=== PATIENT | female | born 1960 | race Caucasian/White ===

== ENCOUNTER → 2017-06-02 | Outpatient (CLI) | payer OTHER ==
--- NOTE | 2017-06-03 13:03 | MM ---
Reason for exam: screening (asymptomatic). Last mammogram was performed 1 year ago. History: Patient is postmenopausal. Core biopsy of the left breast. Physical Findings: A clinical breast exam by your physician is recommended on an annual basis and results should be correlated with mammographic findings. MG Screening Mammo w CAD Bilateral CC and MLO view(s) were taken. Prior study comparison: June 01, 2016, bilateral MG screening mammo w CAD. May 29, 2015, bilateral MG screening mammo w CAD. April 26, 2014, bilateral MG screening mammo w CAD. The breast tissue is heterogeneously dense. This may lower the sensitivity of mammography. Stable scattered round and punctate calcifications. Nodular asymmetry medial subareolar left breast appears more defined. No clear correlate on the MLO view. ASSESSMENT: Incomplete: need additional imaging evaluation, BI-RAD 0 RECOMMENDATION: Special view mammogram of the left breast. If lesion persists on supplemental views, image directed ultrasound is recommended. [facility] will attempt to contact patient to return for supplemental views and ultrasound if indicated.
== END | disposition home or self-care (01) ==
LOC: RADMAMWWP 12:45
PROVIDERS: ATTEND Family Medicine
DX: Z12.31 Encounter for screening mammogram for malignant neoplasm of breast (principal)

== ENCOUNTER → 2017-06-14 | Outpatient (CLI) | payer OTHER ==
--- NOTE | 2017-06-14 14:27 | MM ---
Reason for exam: additional evaluation requested from abnormal screening. Last mammogram was performed less than 1 month ago. History: Patient is postmenopausal. Core biopsy of the left breast. Physical Findings: Nurse did not find any significant physical abnormalities on exam. MG Work Up Mamm w CAD LT Spot compression CC, spot compression MLO, and LM view(s) were taken of the left breast. Prior study comparison: June 02, 2017, bilateral MG screening mammo w CAD. June 01, 2016, bilateral MG screening mammo w CAD. May 29, 2015, bilateral MG screening mammo w CAD. The breast tissue is heterogeneously dense. This may lower the sensitivity of mammography. Nodular asymmetry does not persist as true lesion on additional views. These results were verbally communicated with the patient and result sheet given to the patient on 06/14/17. ASSESSMENT: Benign, BI-RAD 2 RECOMMENDATION: Return to routine screening mammogram schedule for both breasts.
== END | disposition home or self-care (01) ==
LOC: RADMAMWWP 13:32
PROVIDERS: ATTEND Family Medicine
DX: R92.8 Other abnormal and inconclusive findings on diagnostic imaging of breast (principal)

== ENCOUNTER → 2017-11-10 | Outpatient (CLI) | payer OTHER ==
--- NOTE | 2017-11-10 15:47 | US ---
EXAMINATION TYPE: US transvaginal DATE OF EXAM: 11/10/2017 COMPARISON: NONE CLINICAL HISTORY: R10.2 Pelvic And Perineal Pain. TECHNIQUE: Transvaginal (TV) Date of LMP: years ago EXAM MEASUREMENTS: Uterus: 5.0 x 2.9 x 4.1 cm Endometrial Stripe: 0.1 cm Right Ovary: not visualized Left Ovary: not visualized 1. Uterus: Anteverted heterogeneous 2. Endometrium: wnl 3. Right Ovary: Obscured by overlying bowel gas 4. Left Ovary: Obscured by overlying bowel gas 5. Bilateral Adnexa: wnl 6. Posterior cul-de-sac: wnl IMPRESSION: 1. Visualized pelvic ultrasound is normal. 2. Nonvisualization of the ovaries during this exam.
== END | disposition home or self-care (01) ==
LOC: RADUSWWP 14:59
PROVIDERS: ATTEND Family Medicine
DX: R10.2 Pelvic and perineal pain (principal)
CPT/HCPCS: 76830

== ENCOUNTER → 2018-04-19 | Outpatient (CLI) | payer OTHER ==
--- NOTE | 2018-04-19 13:01 | XR ---
EXAMINATION TYPE: XR wrist limited LT, XR hand limited LT DATE OF EXAM: 04/19/2018 CLINICAL HISTORY: Left hand and wrist pain TECHNIQUE: Frontal and lateral images of the left hand and wrist are obtained. COMPARISON: None. FINDINGS: There is no acute fracture/dislocation evident in the left hand or wrist. However there is extensive degenerative change of the carpal carpal joints and first carpometacarpal joint demonstrat ed as opposing surface sclerosis, significant joint space narrowing, and bony proliferative change. T here is also mild negative ulnar variance and calcification of the triangular fibrocartilage. Osseous cysts are seen throughout the carpal bones. There is no evidence of malalignment. There is some dors al soft tissue swelling of the wrist. No significant degenerative change of the metacarpophalangeal j oints, distal interphalangeal joints or proximal interphalangeal joints. No erosion of the ulnar styl oid. IMPRESSION: 1. No acute fracture or dislocation in the left hand or wrist. 2. Extensive carpal and carpometacarpal arthropathy with findings favoring either rheumatoid arthriti s or CPPD.
== END | disposition home or self-care (01) ==
LOC: RADXRMAIN 12:24
PROVIDERS: ATTEND Family Medicine
DX: M12.832 Other specific arthropathies, not elsewhere classified, left wrist (principal)

== ENCOUNTER 2018-06-02 10:06 | Emergency (ER) | payer OTHER ==
[2018-06-02 10:19] LABS: Glucose,Whole Blood 105 mg/dL (75-99)
--- NOTE | 2018-06-02 10:38 | ED ---
General Adult HPI - General Chief complaint: Recheck/Abnormal Lab/Rx Stated complaint: hypoglycemia Time Seen by Provider: 06/02/18 10:21 Source: patient, RN notes reviewed Mode of arrival: ambulatory Limitations: no limitations - History of Present Illness Initial comments: Patient is a 57-year-old female presented to the emergency room today with a chief complaint of hypoglycemia. She does admit that she takes medications pill form for her diabetes. She states she couldn't sleep last night was up most the night. She states that she did take her medication of Actos which is a new med for her along with her glyburide and alogliptin. Patient states that she did hold her metformin this morning she felt a little shaky checked her blood sugars that she had a difficult time getting about 60. She states she did drink lots of juice and Gilberto-Aid. Had a sandwich. Patient says she is feeling fine at this time. She states she took these medications at 6 a.m. this morning approximate 4 Hours ago. Patient denies any recent fever, chills, shortness of breath, chest pain, back pain, abdominal pain, nausea or vomiting, constipation or diarrhea, headaches or visual changes, or any other complaints. - Related Data Home Medications Medication Instructions Recorded Confirmed Cyclobenzaprine [Flexeril] 10 mg PO HS 07/11/14 06/02/18 traMADol HCl [Ultram] 50 mg PO Q6H PRN 07/11/14 06/02/18 Omeprazole [PriLOSEC] 20 mg PO DAILY 08/05/14 06/02/18 Allopurinol 100 mg PO DAILY 05/27/16 06/02/18 Atorvastatin [Lipitor] 80 mg PO HS 05/27/16 06/02/18 Ergocalciferol (Vitamin D2) 50,000 unit PO MO 05/27/16 06/02/18 [Drisdol] Fenofibrate 160 mg PO DAILY 05/27/16 06/02/18 Ibuprofen 600 mg PO Q6H PRN 05/27/16 06/02/18 Glimepiride [Amaryl] 8 mg PO DAILY 06/28/17 06/02/18 Pregabalin [Lyrica] 50 mg PO Q8H PRN 06/28/17 06/02/18 metFORMIN HCL [Glucophage] 1,000 mg PO BID 06/28/17 06/02/18 Alogliptin Benzoate [Alogliptin] 25 mg PO DAILY 06/02/18 06/02/18 Losartan/Hydrochlorothiazide 1 tab PO DAILY 06/02/18 06/02/18 [Losartan-Hctz 100-25 mg Tab] rOPINIRole HCL [Requip] 0.25 mg PO HS 06/02/18 06/02/18 Allergies Allergy/AdvReac Type Severity Reaction Status Date / Time codeine AdvReac Severe Abdominal Verified 06/02/18 10:40 Pain Review of Systems ROS Statement: Those systems with pertinent positive or pertinent negative responses have been documented in the HPI. ROS Other: All systems not noted in ROS Statement are negative. Past Medical History Past Medical History: Diabetes Mellitus, Hyperlipidemia, Hypertension History of Any Multi-Drug Resistant Organisms: None Reported Past Surgical History: Section, Cholecystectomy, Tubal Ligation Additional Past Surgical History / Comment(s): BACK SURGERY DURING CHILDHOOD MARBIN PLACED FOR SCOLIOSIS. [facility] Past Anesthesia/Blood Transfusion Reactions: No Reported Reaction Past Psychological History: No Psychological Hx Reported Smoking Status: Current every day smoker Past Alcohol Use History: None Reported Past Drug Use History: None Reported - Past Family History Brother(s) Family Medical History: Diabetes Mellitus Mother Family Medical History: Cancer Father Family Medical History: Cancer General Exam - General Exam Comments Initial Comments: General: The patient is awake and alert, in no distress, and does not appear acutely ill. Eye: Pupils are equal, round and reactive to light, extra-ocular movements are intact. No nystagmus. There is normal conjunctiva bilaterally. No signs of icterus. Ears, nose, mouth and throat: There are moist mucous membranes and no oral lesions. Neck: The neck is supple, there is no tenderness or JVD. Cardiovascular: There is a regular rate and rhythm. No murmur, rub or gallop is appreciated. Respiratory: Lungs are clear to auscultation, respirations are non-labored, breath sounds are equal. No wheezes, stridor, rales. Musculoskeletal: Normal ROM, no tenderness. Strength 5/5. Sensation intact. Pulses equal bilaterally 2+. Neurological: A&O x 3. CN II-XII intact, There are no obvious motor or sensory deficits. Coordination appears grossly intact. Speech is normal. Skin: Skin is warm and dry and no rashes or lesions are noted. Psychiatric: Cooperative, appropriate mood & affect, normal judgment. Limitations: no limitations Course Vital Signs 06/02/18 10:13 Temperature 98.3 F Pulse Rate 111 H Respiratory 18 Rate Blood Pressure 115/77 O2 Sat by Pulse 95 Oximetry Medical Decision Making - Medical Decision Making Patient's blood sugar was rechecked and is currently 128. Patient took her medications over 4 hours ago. She was on a new medication of Actos. She is advised to hold this medication so she talks family doctor. She is a symptomatic urine emergency room. After the remaining medications. Peak Plasma times were less than 4 hours. At this time states felt the patient is safe to be discharged home she is advised to continue to monitor her blood sugar. Advised return for new concerns. - Lab Data Lab Results 06/02/18 06/02/18 Range/Units 10:18 11:11 POC Glucose (mg/dL) 105 H 128 H (75-99) mg/dL POC Glu Frame Assembler ID Sayda Puri Andrew Disposition Clinical Impression: Hypoglycemia Disposition: HOME SELF-CARE Condition: Good Instructions: Hypoglycemia in a Person with Diabetes (ED) Additional Instructions: Please hold medication of pioglitazone until follow-up with family doctor as discussed. Please return here to the emergency room if any symptoms increase worsen. Is patient prescribed a controlled substance at d/c from ED?: No Referrals: Shun Simmons DO [Primary Care Provider] - 1-2 days Time of Disposition: 11:16
[2018-06-02 11:13] LABS: Glucose,Whole Blood 128 mg/dL (75-99)
[2018-06-02 11:25] VITALS: BP 117/82; PULSE 93; RESP 15; TEMP 97
== END 2018-06-02 11:33 | disposition home or self-care (01) ==
LOC: EC 10:06
DX: E11.649 Type 2 diabetes mellitus with hypoglycemia without coma (principal); E78.5 Hyperlipidemia, unspecified; I10 Essential (primary) hypertension; F17.200 Nicotine dependence, unspecified, uncomplicated; Z88.5 Allergy status to narcotic agent; Z79.84 Long term (current) use of oral hypoglycemic drugs; Z79.899 Other long term (current) drug therapy
CPT/HCPCS: 36415; 99284

== ENCOUNTER → 2018-08-15 | Outpatient (CLI) | payer OTHER ==
--- NOTE | 2018-08-16 11:53 | MM ---
Reason for exam: screening (asymptomatic). Last mammogram was performed 1 year and 2 months ago. History: Patient is postmenopausal. Core biopsy of the left breast. Physical Findings: A clinical breast exam by your physician is recommended on an annual basis and results should be correlated with mammographic findings. MG Screening Mammo w CAD Bilateral CC, MLO, and XCCL view(s) were taken. Prior study comparison: June 14, 2017, left breast MG work up mamm w CAD LT. June 02, 2017, bilateral MG screening mammo w CAD. The breast tissue is heterogeneously dense. This may lower the sensitivity of mammography. Finding: There are typically benign indeterminate calcifications in the 3 o'clock retroglandular position of the left breast 5-6cm from the nipple. New finding since June 14, 2017 and June 02, 2017. ASSESSMENT: Incomplete: need additional imaging evaluation, BI-RAD 0 RECOMMENDATION: Special view mammogram of the left breast. [facility] will attempt to contact patient to return for supplemental views.
== END | disposition home or self-care (01) ==
LOC: RADMAMWWP 14:31
PROVIDERS: ATTEND Family Medicine
DX: Z12.31 Encounter for screening mammogram for malignant neoplasm of breast (principal)
CPT/HCPCS: 77067

== ENCOUNTER → 2018-08-29 | Outpatient (CLI) | payer OTHER ==
--- NOTE | 2018-08-31 13:44 | MM ---
Reason for exam: additional evaluation requested from abnormal screening. Last mammogram was performed less than 1 month ago. History: Patient is postmenopausal. Core biopsy of the left breast. Physical Findings: Nurse did not find any significant physical abnormalities on exam. MG Work Up Mamm w CAD LT CC with magnification, ML with magnification, and ML view(s) were taken of the left breast. Prior study comparison: August 15, 2018, bilateral MG screening mammo w CAD. June 14, 2017, left breast MG work up mamm w CAD LT. The breast tissue is heterogeneously dense. This may lower the sensitivity of mammography. There is a 2mm group of calcifications in the lower outer quadrant of the left breast at middle posterior depth. Subtly seen on priors back to 2016, slightly increased. 6 month follow up recommended. No suspicious abnormality. These results were verbally communicated with the patient and result sheet given to the patient on 08/29/18. ASSESSMENT: Probably benign, BI-RAD 3 RECOMMENDATION: Follow-up diagnostic mammogram of the left breast in 6 months.
== END | disposition home or self-care (01) ==
LOC: RADMAMWWP 10:16
PROVIDERS: ATTEND Family Medicine
DX: R92.8 Other abnormal and inconclusive findings on diagnostic imaging of breast (principal)
CPT/HCPCS: 77065

== ENCOUNTER → 2018-10-18 | Outpatient (CLI) | payer OTHER ==
--- NOTE | 2018-10-19 13:51 | MR ---
EXAMINATION TYPE: MR lumbar spine wo con DATE OF EXAM: 10/18/2018 COMPARISON: None HISTORY: Spinal stenosis TECHNIQUE: Multiplanar, multisequence images of the lumbar spine were acquired. FINDINGS: Postsurgical changes seen in T12, obscuring visualization at this level due to susceptibili ty artifact. There is minimal grade 1 anterolisthesis of L3 on L4 and L4 on L5 with retrolisthesis of L5 on S1. Multilevel Schmorl's nodes, degenerative Modic type II endplate change, and disc desiccati on are seen. Multilevel facet arthropathy and anterior osteophytes are also noted. There is heterogen ous bone marrow throughout. Conus medullaris is not definitively seen given susceptibility artifact. There is a levoscoliotic curvature of the lumbar spine. L1-L2: There is a broad-based disc bulge and facet arthropathy resulting in mild to moderate bilatera l neural foraminal narrowing without spinal canal stenosis. L2-L3: There is a large broad-based disc bulge, facet arthropathy and ligamentum flavum buckling resu lting in moderate to severe right and moderate left neural foraminal narrowing. No spinal canal steno sis. L3-L4: There is a large right eccentric broad-based disc bulge, facet arthropathy and ligamentum flav um buckling creating severe right neural foraminal narrowing with impingement on the exiting nerve ro ot and minimal left neural foraminal narrowing as well as moderate spinal canal stenosis with bucklin g of the nerve roots area in L4-L5: There is a large broad-based disc bulge with disc uncovering resulting in moderate bilateral n eural foraminal narrowing and mild spinal canal stenosis with buckling of the nerve roots. L5-S1: There is a central annular tear and large broad-based disc bulge with severe left and moderate right neural foraminal narrowing and mild spinal canal stenosis. IMPRESSION: 1. Severe multilevel degenerative disc disease resulting in multilevel spinal canal stenosis in varia ble degree neural foraminal narrowing as described above. 2. Multilevel malalignment, likely on a degenerative basis. No vertebral body height loss. 3. Diffuse heterogeneity of bone marrow. Correlate with CBC to evaluate for anemia or myeloproliferat thomas disorder. 4. Levoscoliosis of the lumbar spine.
== END | disposition home or self-care (01) ==
LOC: RADMRIMAIN 13:34
PROVIDERS: ATTEND Family Medicine
DX: M48.07 Spinal stenosis, lumbosacral region (principal); M99.73 Connective tissue and disc stenosis of intervertebral foramina of lumbar region; M51.36 Other intervertebral disc degeneration, lumbar region; M41.86 Other forms of scoliosis, lumbar region
CPT/HCPCS: 72148

== ENCOUNTER → 2019-01-11 | Outpatient (CLI) | payer OTHER ==
--- NOTE | 2019-01-12 08:01 | USB ---
Reason for exam: clinical finding. History: Patient is postmenopausal. Core biopsy of the left breast. Physical Findings: Nurse Summary: 1cm soft nodule in right chest (nurse dw). US Breast RT Right complete breast ultrasound includes all four quadrants, the retroareolar region and axilla. Finding demonstrates a 0.4 x 0.3 x 0.2cm mixed lesion at 6 o'clock appears as a minimally complicated cyst, a 0.3 x 0.2cm vessel at 9 o'clock and a 2.0 x 0.6 x 2.4cm benign lipoma medial to humeral. These results were verbally communicated with the patient and result sheet given to the patient on 01/11/19. ASSESSMENT: Benign, BI-RAD 2 RECOMMENDATION: Follow-up diagnostic mammogram in 1 month. (left) (Patient will be due for left diagnostic mammogram in February 2019 from work up to completion mammogram in August 2018)
== END | disposition home or self-care (01) ==
LOC: RADUSWWP 15:18
PROVIDERS: ATTEND Family Medicine
DX: N63.11 Unspecified lump in the right breast, upper outer quadrant (principal)

== ENCOUNTER 2019-02-23 19:20 | Inpatient (IN) | payer OTHER ==
--- NOTE | 2019-02-23 19:49 | ED ---
SOB HPI - General Chief Complaint: ENT Stated Complaint: Spit up blood Time Seen by Provider: 02/23/19 19:33 Source: patient, RN notes reviewed, old records reviewed Mode of arrival: ambulatory Limitations: no limitations - History of Present Illness Initial Comments: This is a 4-year-old female the ER for evaluation. Patient resents today for evaluation of coughing up blood. Patient is a lifetime smoker. No travel history no sick contacts. No fevers. No shortness of breath. Patient concern that she may be bleeding from similar. She is not on any blood thinners. No recent travel history no sick contacts. No history of similar complaint MD Complaint: cough (hemoptysis) Severity: mild Severity scale (1-10): 1 Improves With: nothing Worsens With: nothing Known History Of: COPD Context: recent URI Associated Symptoms: denies other symptoms - Related Data Home Medications Medication Instructions Recorded Confirmed Cyclobenzaprine [Flexeril] 10 mg PO HS 07/11/14 02/23/19 traMADol HCl [Ultram] 50 mg PO Q6H PRN 07/11/14 02/23/19 Omeprazole [PriLOSEC] 20 mg PO DAILY 08/05/14 02/23/19 Allopurinol 100 mg PO DAILY 05/27/16 02/23/19 Atorvastatin [Lipitor] 80 mg PO HS 05/27/16 02/23/19 Ergocalciferol (Vitamin D2) 50,000 unit PO MO 05/27/16 02/23/19 [Drisdol] Fenofibrate 160 mg PO DAILY 05/27/16 02/23/19 Glimepiride [Amaryl] 8 mg PO DAILY 06/28/17 02/23/19 metFORMIN HCL [Glucophage] 1,000 mg PO BID 06/28/17 02/23/19 Alogliptin Benzoate [Alogliptin] 25 mg PO DAILY 06/02/18 02/23/19 Losartan/Hydrochlorothiazide 1 tab PO DAILY 06/02/18 02/23/19 [Losartan-Hctz 100-25 mg Tab] rOPINIRole HCL [Requip] 0.25 mg PO HS 06/02/18 02/23/19 Albuterol Inhaler [Ventolin Hfa 2 puff INHALATION RT-Q6H PRN 02/23/19 02/23/19 Inhaler] Budesonide-Formot 160-4.5 Mcg 2 puff INHALATION RT-BID 02/23/19 02/23/19 [Symbicort 160-4.5 Mcg Inhaler] Pioglitazone HCl 15 mg PO DAILY 02/23/19 02/23/19 Pregabalin [Lyrica] 75 mg PO TID 02/23/19 02/23/19 Allergies Allergy/AdvReac Type Severity Reaction Status Date / Time codeine AdvReac Severe Abdominal Verified 02/23/19 20:50 Pain Review of Systems ROS Statement: Those systems with pertinent positive or pertinent negative responses have been documented in the HPI. ROS Other: All systems not noted in ROS Statement are negative. Past Medical History Past Medical History: Diabetes Mellitus, Hyperlipidemia, Hypertension History of Any Multi-Drug Resistant Organisms: None Reported Past Surgical History: Section, Cholecystectomy, Tubal Ligation Additional Past Surgical History / Comment(s): BACK SURGERY DURING CHILDHOOD MARBIN PLACED FOR SCOLIOSIS. [facility] Past Anesthesia/Blood Transfusion Reactions: No Reported Reaction Past Psychological History: No Psychological Hx Reported Smoking Status: Current every day smoker Past Alcohol Use History: None Reported Past Drug Use History: None Reported - Past Family History Brother(s) Family Medical History: Diabetes Mellitus Mother Family Medical History: Cancer Father Family Medical History: Cancer General Exam Limitations: no limitations General appearance: alert, in no apparent distress Head exam: Present: atraumatic, normocephalic, normal inspection Eye exam: Present: normal appearance, PERRL, EOMI. Absent: scleral icterus, conjunctival injection, periorbital swelling ENT exam: Present: normal exam, mucous membranes moist Neck exam: Present: normal inspection. Absent: tenderness, meningismus, lymphadenopathy Respiratory exam: Present: normal lung sounds bilaterally. Absent: respiratory distress, wheezes, rales, rhonchi, stridor Cardiovascular Exam: Present: regular rate, normal rhythm, normal heart sounds. Absent: systolic murmur, diastolic murmur, rubs, gallop, clicks GI/Abdominal exam: Present: soft, normal bowel sounds. Absent: distended, tenderness, guarding, rebound, rigid Extremities exam: Present: normal inspection, full ROM, normal capillary refill. Absent: tenderness, pedal edema, joint swelling, calf tenderness Back exam: Present: normal inspection Neurological exam: Present: alert, oriented X3, CN II-XII intact Psychiatric exam: Present: normal affect, normal mood Skin exam: Present: warm, dry, intact, normal color. Absent: rash Course Vital Signs 02/23/19 02/23/19 02/23/19 19:34 20:43 20:53 Temperature 98.1 F Pulse Rate 110 H 108 H 108 H Pulse Rate [ Right] Respiratory 18 Rate Blood Pressure 116/80 Blood Pressure [Right Arm] O2 Sat by Pulse 94 L Oximetry 02/23/19 21:57 Temperature 97.5 F L Pulse Rate Pulse Rate [ 87 Right] Respiratory 16 Rate Blood Pressure Blood Pressure 135/82 [Right Arm] O2 Sat by Pulse 96 Oximetry - Reevaluation(s) Reevaluation #1: 02/23/19 22:00 Record is reviewed Reevaluation #2: 02/23/19 22:00 (Spoke with Family and patient regarding findings and prognosis, questions are answered Medical Decision Making - Medical Decision Making 58 female the ER with new onset mass versus abscess versus granulomatous disease, nodule right chest. Hemoptysis. Will admit - Lab Data Result diagrams: 02/23/19 20:58 02/23/19 20:58 - EKG Data -: EKG Interpreted by Me (EKG shows sinus tachycardia rate of 106, WI 140, QRS 80, QTC 478) - Radiology Data Radiology results: report reviewed (Chest x-ray shows well-circumscribed lesion right chest), image reviewed Disposition Clinical Impression: Lung mass, Hemoptysis Disposition: ADMITTED IP TO THIS [facility] Condition: Fair Is patient prescribed a controlled substance at d/c from ED?: No
--- NOTE | 2019-02-23 20:07 | XR ---
EXAMINATION TYPE: XR chest 2V DATE OF EXAM: 02/23/2019 COMPARISON: 08/02/2014 HISTORY: Shortness of breath TECHNIQUE: Frontal and lateral views of the chest are obtained. FINDINGS: Scattered senescent parenchymal changes noted. Hyperinflation compatible with COPD. No evidence for infiltrate. No evidence for atelectasis. New right middle lobe mass with cavitation measuring 4.0 x 3.1 cm. Consider malignancy until proven o therwise. Heart size is stable. Mediastinal structures are stable and grossly unremarkable. No evidence for hilar prominence. Degenerative changes dorsal spine. Postoperative changes dorsal spine. IMPRESSION: 1. New right middle lobe mass with cavitation measuring 4.0 x 3.1 cm. Consider malignancy until prove n otherwise.
[2019-02-23] MEDS ORDERED: IPRATROPIUM-ALBUTEROL 3 ML NEB INHALATION STA (20:17)
[2019-02-23] MEDS ORDERED: SODIUM CHLORIDE 0.9% 1,000 ML IV STA ×2 (20:17)
[2019-02-23] MEDS ORDERED: PNEUMONIA PROTOCOL UTILIZED 1 EACH MISC PO PRN (20:17)
[2019-02-23] MEDS ORDERED: IPRATROPIUM-ALBUTEROL 3 ML NEB INHALATION PRN (20:17)
[2019-02-23] MEDS ORDERED: RX INFO: IV CONTRAST WAS GIVEN 1 EACH MISC MISCELLANE PRN (20:17)
[2019-02-23] MEDS ORDERED: cefTRIAXone IN SWFI 1,000 MG/10 ML SYRINGE IVP STA (20:27)
[2019-02-23 21:16] LABS: Basophils # (A) 0.1 k/uL (0-0.2); Basophils % (A) 1 %; Eosinophils # (A) 0.4 k/uL (0-0.7); Eosinophils % (A) 4 %; HCT 41.6 % (34.0-46.0); HGB 14.4 gm/dL (11.4-16.0); Lymphocytes # (A) 2.9 k/uL (1.0-4.8); Lymphocytes % (A) 25 %; MCH 30.1 pg (25.0-35.0); MCHC 34.5 g/dL (31.0-37.0); MCV 87.1 fL (80.0-100.0); Mean Platelet Volume 7.2; Monocytes # (A) 0.5 k/uL (0-1.0); Monocytes % (A) 4 %; Neutrophils # (A) 7.2 k/uL (1.3-7.7); Neutrophils % (A) 64 %; Platelet Count 514 k/uL (150-450); RBC 4.77 m/uL (3.80-5.40); RDW 13.7 % (11.5-15.5); WBC 11.3 k/uL (3.8-10.6)
[2019-02-23 21:25] LABS: ALT 31 U/L (9-52); AST 29 U/L (14-36); African American GFR (CKD) >90 (>60 ml/min/1.73 sqM); Alkaline Phosphatase 71 U/L (38-126); Anion Gap 14 mmol/L; Blood Urea Nitrogen 14 mg/dL (7-17); Calcium 9.2 mg/dL (8.4-10.2); Carbon Dioxide 25 mmol/L (22-30); Chloride 96 mmol/L (98-107); Glucose 90 mg/dL (74-99); Potassium 4.3 mmol/L (3.5-5.1); Sodium 135 mmol/L (137-145); Total Bilirubin 0.5 mg/dL (0.2-1.3); Total Protein 6.9 g/dL (6.3-8.2)
[2019-02-23 21:32] LABS: INR 1.1 (<1.2); Prothrombin Time 11.7 sec (9.0-12.0)
[2019-02-23 21:45] LABS: Magnesium 0.9 mg/dL (1.6-2.3)
--- NOTE | 2019-02-23 21:56 | CT ---
EXAMINATION TYPE: CT chest w con DATE OF EXAM: 02/23/2019 COMPARISON: 2 view chest from the same day HISTORY: coughing up blood CT DLP: 515.1 mGycm Automated exposure control for dose reduction was used. CONTRAST: CT scan of the chest is performed with IV Contrast, patient injected with 100 mL of Isovue 300. FINDINGS: LUNGS: Right middle lobe cavitary mass measuring 4.1 x 2.0 cm. This could reflect cavitary malignancy versus cavitary infiltrate. Abscess is not excluded. The remainder of the lungs are clear. MEDIASTINUM: There are no greater than 1 cm hilar or mediastinal lymph nodes. No pericardial effusi on is seen. Thoracic aorta is of normal caliber. The heart is not enlarged. UPPER ABDOMEN: Hepatic steatosis noted. Hypoattenuating lesion posterior segment right hepatic lobe m easures 9.9 mm. Left adrenal mass measuring 2.0 x 2.6 cm. Metastatic disease is not excluded. OTHER: No additional significant abnormality is seen. Postoperative changes thoracic spine. IMPRESSION: 1.Right middle lobe cavitary mass measuring 4.1 x 2.0 cm. This could reflect cavitary malignancy vers us cavitary infiltrate. Abscess is not excluded. 2. I cannot exclude metastatic disease to the left adrenal gland. 3. Fatty liver. Subcentimeter nonspecific hypoattenuating lesion posterior segment right hepatic lobe .
[2019-02-23 22:39] VITALS: BMI 37.8
[2019-02-23 22:53] LABS: Glucose,Whole Blood 110 mg/dL (75-99)
[2019-02-23] MEDS ORDERED: Magnesium Replacement Protocol 1 EACH MISC MISCELLANE PRN (22:58)
[2019-02-23] MEDS ORDERED: ALBUTEROL NEBULIZED 2.5 MG/3 ML INHALATION PRN (22:59)
[2019-02-24] MEDS: CLINDAMYCIN 600 MG in DEXTROSE 5% IN WATER 50 ML IVPB SCH ×6 (00:20→16:49)
[2019-02-24] MEDS: traMADol 50 MG TAB PO PRN ×4 (00:36→21:55)
[2019-02-24] MEDS: CYCLOBENZAPRINE 10 MG TAB PO SCH ×2 (00:36→21:55)
[2019-02-24] MEDS: MAGNESIUM SULFATE-D5W PMX 1 GM in DEXTROSE/WATER 1 100ML.BAG IVPB SCH ×4 (01:36→05:07)
[2019-02-24 07:00] LABS: Glucose,Whole Blood 113 mg/dL (75-99)
[2019-02-24] MEDS: SYMBICORT 160-4.5 MCG INHALER INHALATION PRN ×2 (08:19→19:56)
--- NOTE | 2019-02-24 08:25 | XR ---
EXAMINATION TYPE: XR chest 2V DATE OF EXAM: 02/24/2019 COMPARISON: 02/23/2019 HISTORY: 58-year-old female follow-up pneumonia TECHNIQUE: Frontal and lateral views FINDINGS: The heart is normal size. Atherosclerotic arch calcifications. Mild interstitial prominence of the ch ronic appearance. Posterior thoracic stabilization levi with dextroconvex scoliosis. Focal opacity at the right lower lung slightly increased. Similar small area of cavitation within. IMPRESSION: Focal right lower lung consolidation versus mass slightly increased. The increase in size is more sug gestive of airspace disease at this time. Similar small areas of associated cavitation.
[2019-02-24] MEDS: NICOTINE 21MG/24HR PATCH TRANSDERM SCH (10:11)
[2019-02-24] MEDS: ALLOPURINOL 100 MG TAB PO SCH (10:12)
[2019-02-24] MEDS: GLIMEPIRIDE 4 MG TAB PO SCH (10:12)
[2019-02-24] MEDS: LOSARTAN-HCTZ 50-12.5 MG 1 EACH TAB PO SCH (10:12)
[2019-02-24] MEDS: FENOFIBRATE 160 MG TAB PO SCH (10:12)
[2019-02-24] MEDS: LINAGLIPTIN 5 MG TABLET PO SCH (10:12)
[2019-02-24] MEDS: PREGABALIN 75 MG CAP PO SCH ×2 (10:13→21:55)
[2019-02-24] MEDS: PANTOPRAZOLE 40 MG TABLET PO SCH (10:13)
[2019-02-24] MEDS: PIOGLITAZONE 15 MG TAB PO SCH (10:13)
[2019-02-24 11:09] LABS: Glucose,Whole Blood 82 mg/dL (75-99)
--- NOTE | 2019-02-24 13:28 | P.CNPUL ---
History of Present Illness Consult date: 02/24/19 Requesting physician: Corey Tai Reason for consult: dyspnea, abnormal CXR/CT (Cavitary mass in the right lung) Chief complaint: Coughing up blood History of present illness: This is a very pleasant 58-year-old female patient who follows with Dr. Simmons as her primary care physician. She has a history of diabetes mellitus, hypertension, hyperlipidemia, gastroesophageal reflux disease, gout, arthritis. She also has chronic and ongoing tobacco dependence of 45 years. She presented here to the emergency room yesterday afternoon after having episodes of coughing up blood. She states that was in small amounts with some phlegm. No previous history of hemoptysis. Chest x-ray revealed a focal right lower lung consolidation versus mass with smaller areas of associated cavitation. Computed tomography scan of the chest revealed a right middle lobe cavitary mass measuring 4.1 x 2.0 cm. Suspect malignancy versus cavitary infiltrate. Abscess is not excluded. There is also suspected metastatic disease to the left adrenal gland with a mass measuring 2.0 x 2.6. White count 11.3. Hemoglobin 14.4. Creatinine 0.64. She has been initiated on DuoNeb inhalations, Symbicort, clindamycin and ceftriaxone. She is maintaining good O2 saturations in the 90s on room air. She's been afebrile. Hemodynamically stable. She is seen today in consultation on the oncology floor. Awake and alert in no acute distress. No worsening shortness of breath. Just scant amounts of blood-tinged sputum today. Review of Systems REVIEW OF SYSTEMS: CONSTITUTIONAL: Denies any recent significant weight loss or weight gain. EYES: Denies change in vision. EARS, NOSE, MOUTH, THROAT: Denies headaches, denies sore throat. CARDIOVASCULAR: Denies chest pain, palpitations or syncopal episodes. RESPIRATORY: Denies shortness of breath, cough, congestion. Positive for hemopt ysis. GASTROINTESTINAL: Denies change in appetite, denies abdominal pain GENITOURINARY: Denies hematuria, denies infections. MUSKULOSKELETAL: Denies pain, denies swelling. INTEGUMENTARY: Denies rash, denies eczema. NEUROLOGICAL: Denies recent memory loss, no recent seizure activity. PSYCHIATRIC: Denies anxiety, denies depression. HEMATOLOGIC/LYMPHATIC: Denies anemia, denies enlarged lymph nodes. Past Medical History Past Medical History: Diabetes Mellitus, Hyperlipidemia, Hypertension Additional Past Medical History / Comment(s): start of glaucoma barely just starting, per patient her "knees have been giving out lately" DDD History of Any Multi-Drug Resistant Organisms: None Reported Past Surgical History: Section, Cholecystectomy, Tubal Ligation Additional Past Surgical History / Comment(s): BACK SURGERY DURING CHILDHOOD MARBIN PLACED FOR SCOLIOSIS, been having epidural/steroid back injections for back pain recently. [facility], multiple breast biopsies due to benign lesions, recent mri of spine in 10/2018 Past Anesthesia/Blood Transfusion Reactions: No Reported Reaction Past Psychological History: No Psychological Hx Reported Smoking Status: Current every day smoker Past Alcohol Use History: None Reported Past Drug Use History: None Reported Additional Drug Use History / Comment(s): smokes a pack a day - Past Family History Brother(s) Family Medical History: Diabetes Mellitus Mother Family Medical History: Cancer Father Family Medical History: Cancer Medications and Allergies Home Medications Medication Instructions Recorded Confirmed Type Cyclobenzaprine [Flexeril] 10 mg PO HS 07/11/14 02/23/19 History traMADol HCl [Ultram] 50 mg PO Q6H PRN 07/11/14 02/23/19 History Omeprazole [PriLOSEC] 20 mg PO DAILY 08/05/14 02/23/19 History Allopurinol 100 mg PO DAILY 05/27/16 02/23/19 History Atorvastatin [Lipitor] 80 mg PO HS 05/27/16 02/23/19 History Ergocalciferol (Vitamin D2) 50,000 unit PO MO 05/27/16 02/23/19 History [Drisdol] Fenofibrate 160 mg PO DAILY 05/27/16 02/23/19 History Glimepiride [Amaryl] 8 mg PO DAILY 06/28/17 02/23/19 History metFORMIN HCL [Glucophage] 1,000 mg PO BID 06/28/17 02/23/19 History Alogliptin Benzoate [Alogliptin] 25 mg PO DAILY 06/02/18 02/23/19 History Losartan/Hydrochlorothiazide 1 tab PO DAILY 06/02/18 02/23/19 History [Losartan-Hctz 100-25 mg Tab] rOPINIRole HCL [Requip] 0.25 mg PO HS 06/02/18 02/23/19 History Albuterol Inhaler [Ventolin Hfa 2 puff INHALATION RT-Q6H PRN 02/23/19 02/23/19 History Inhaler] Budesonide-Formot 160-4.5 Mcg 2 puff INHALATION RT-BID PRN 02/23/19 02/23/19 History [Symbicort 160-4.5 Mcg Inhaler] Pioglitazone HCl 15 mg PO DAILY 02/23/19 02/23/19 History Pregabalin [Lyrica] 75 mg PO BID 02/23/19 02/23/19 History Allergies Allergy/AdvReac Type Severity Reaction Status Date / Time codeine AdvReac Severe Abdominal Verified 02/23/19 20:50 Pain Physical Exam Vitals: Vital Signs Temp Pulse Pulse Resp BP BP Pulse Ox 02/24/19 12:04 97.8 F 83 17 127/86 95 02/24/19 08:25 91 16 02/24/19 05:35 97.3 F L 91 16 104/70 93 L 02/23/19 21:57 97.5 F L 87 16 135/82 96 02/23/19 20:53 108 H 02/23/19 20:43 108 H 02/23/19 19:34 98.1 F 110 H 18 116/80 94 L Intake and Output 02/23/19 02/24/19 02/24/19 22:59 06:59 14:59 Intake Total 850 Balance 850 Intake: Intake, IV Titration 850 Amount Clindamycin 600 mg In 50 Dextrose 5% in Water 50 ml @ 50 mls/hr IVPB Q8HR [facility] Rx#:[id number] Magnesium Sulfate-D5w Pmx 400 1 gm In Dextrose/Water 1 100ml.bag @ 100 mls/hr IVPB Q1H [facility] Rx#: [id number] Sodium Chloride 0.9% 1, 400 000 ml @ 100 mls/hr IV . Q10H [facility] Rx#:[id number] Other: Voiding Method Toilet Toilet # Voids 1 1 Weight 93.894 kg GENERAL EXAM: Alert, pleasant 58-year-old female, comfortable in no apparent distress. On room air. HEAD: Normocephalic. EYES: Normal reaction of pupils, equal size. NOSE: Clear with pink turbinates. THROAT: No erythema or exudates. NECK: No masses, no JVD. CHEST: No chest wall deformity. LUNGS: Equal air entry with no crackles, wheeze, rhonchi or dullness. CVS: S1 and S2 normal with no audible murmur, regular rhythm. ABDOMEN: No hepatosplenomegaly, normal bowel sounds, no guarding or rigidity. SPINE: No scoliosis or deformity SKIN: No rashes CENTRAL NERVOUS SYSTEM: No focal deficits, tone is normal in all 4 extremities. EXTREMITIES: There is no peripheral edema. No clubbing, no cyanosis. Peripheral pulses are intact. Results - Laboratory Findings CBC and BMP: 02/23/19 20:58 02/23/19 20:58 PT/INR, D-dimer PT 11.7 sec (9.0-12.0) 02/23/19 20:58 INR 1.1 (<1.2) 02/23/19 20:58 Abnormal lab findings: Abnormal Labs 02/23/19 02/23/19 02/23/19 20:58 20:58 22:51 WBC 11.3 H Plt Count 514 H Sodium 135 L Chloride 96 L POC Glucose (mg/dL) 110 H Magnesium 0.9 L* 02/24/19 06:59 WBC Plt Count Sodium Chloride POC Glucose (mg/dL) 113 H Magnesium - Diagnostic Findings Chest x-ray: image reviewed CT scan - chest: image reviewed Assessment and Plan Assessment: Impression: #1 Hemoptysis secondary to a right middle lobe cavitary mass measuring 4.1 x 2.0 cm. Suspect malignancy versus cavitary infiltrate versus abscess. #2 Left adrenal mass measuring 2.0 x 2.6 cm, suspect metastasis. #3 Chronic and ongoing tobacco dependence of 45 years. #4 Diabetes mellitus. #5 Hypertension. #6 Hyperlipidemia. #7 History of gout. #8 Arthritis. #9 Gastroesophageal reflux disease. Plan: The patient was seen and evaluated by Dr. Elizondo. Chest x-ray, CAT scans and labs were all reviewed. We will treat the patient with antibiotics in form of clindamycin and ceftriaxone. Add DuoNeb inhalations and Symbicort. Suspect squamous cell carcinoma of the right middle lobe. We'll plan for bronchoscopy with BAL and biopsies on 02/26/2019. We will continue to follow and make further recommendations based on her clinical status. I, the cosigning physician, performed a history & physical examination of the patient. Lungs sounds are clear, diminished. Maintaining good O2 saturations in the 90s on room air. I discussed the assessment and plan of care with my nurse practitioner, Laura Oneil. I attest to the above note as dictated by her. Time with Patient: Greater than 30
[2019-02-24 17:15] LABS: Glucose,Whole Blood 106 mg/dL (75-99)
--- NOTE | 2019-02-24 19:25 | HP ---
HISTORY AND PHYSICAL DATE OF ADMISSION: 02/23/2019 DATE OF SERVICE: 02/24/2019 PRESENTING COMPLAINT: Coughing up blood. HISTORY OF PRESENTING COMPLAINT: This is a 58-year-old patient of Dr. Mendoza whose chronic stable medical conditions include diabetes, hypertension, hyperlipidemia, and is a smoker. The patient for 2 days has been having cough. No obvious fever and chills, just feeling tired and run down and patient coughed up some blood in the sputum and presented here. The patient's appetite has been okay. No weight loss. The patient's CT scan of the chest did reveal a right middle lobe cavitary mass could not be excluded. The patient admitted for the same. Started on antibiotics in form of IV ceftriaxone. This afternoon, patient blood cultures also were reported to be positive. The patient's is present with her. The patient's appetite is otherwise fair. REVIEW OF SYSTEMS: CONSTITUTIONAL: Tired. HEENT none. RESPIRATORY: Some wheezing, cough. CARDIOVASCULAR: None. GASTROINTESTINAL: None. GENITOURINARY: None. MUSCULOSKELETAL: None. DERMATOLOGICAL, HEMATOLOGIC, LYMPHATIC: none. PSYCHIATRY none. NEUROLOGICAL: None. PAST MEDICAL HISTORY: Diabetes, hypertension, hyperlipidemia, early glaucoma, arthritic pain in the joints. PAST SURGICAL HISTORY: , cholecystectomy, back surgery during childhood for ortho scoliosis and recently got epidural injection for back pain, multiple breast biopsies. SOCIAL HISTORY: . Smoking a pack a day close to 45 years. Alcohol occasionally. FAMILY HISTORY: Of cancer. HOME MEDICATIONS: 1. Glucophage 1000 mg b.i.d. 2. Lyrica 75 mg b.i.d. 3. Ventolin HFA 2 puffs q.6 p.r.n. 4. Ultram 50 mg q.6 p.r.n. 5. Requip 0.25 mg q.h.s. 6. Actos 50 mg p.o. daily. 7. Vitamin D2 45071 units p.o. on Tuesday. 8. Flexeril 10 mg q.h.s. 9. Lipitor 80 mg q.h.s. 10.Symbicort 160/4.5, 2 puffs b.i.d. p.r.n. 11.Prilosec 20 mg p.o. daily. 12.Losartan hydrochlorothiazide 100/25 1 tablet p.o. daily. 13.Amaryl 8 mg p.o. daily. 14.Tricor 160 mg p.o. daily. 15. 25 mg a day. 16.Allopurinol 100 mg p.o. daily. ALLERGIES: CODEINE. PHYSICAL EXAMINATION: VITAL SIGNS: Vital signs on presentation: Temperature 98.1, pulse 110, respiration 18, blood pressure 116/80, pulse ox 94 percent on room air. GENERAL APPEARANCE: Well built, BMI 37.9. Lying in bed. A bit tired-appearing. EYES: Pupils equal. Conjunctivae normal. HEENT: External appearance of nose and ears normal. Oral cavity normal. NECK: JVD not raised. Mass not palpable. RESPIRATORY: Effort normal. LUNGS: Some diminished breath sounds. CARDIOVASCULAR: First and second sounds normal. No edema. ABDOMEN: Soft, nontender. Liver and spleen not palpable. LYMPHATICS: No lymph nodes palpable in the neck and axilla. PSYCHIATRY: Alert and oriented x3. Mood and affect normal. NEUROLOGICAL: Pupils equal. Cranial nerves grossly intact. Power and sensation grossly intact. MUSCULOSKELETAL: Evidence of osteoarthritis especially in the hands and knees. INVESTIGATIONS: White count 11.3, hemoglobin 14.4, potassium 4.3, BUN and creatinine is normal. Magnesium 0.9. Troponin is less than 0.012. EKG tracing personally reviewed by me shows sinus tachycardia. Chest x-ray film personally reviewed by me shows a mass on the right lung field. CT scan of the chest right middle lobe cavitary mass 4.1 x 2 cm with cavitary mass, fatty liver. ASSESSMENT: 1. Right middle lung mass with hemoptysis, could be early developing lung abscess. The patient does not report any obvious fever or chills underlying malignancy cannot be ruled out. 2. Obesity; BMI 37.9. 3. Chronic obstructive pulmonary disease in a current smoker. 4. Diabetes mellitus type 2 on oral hypoglycemic. 5. Essential hypertension. 6. Hyperlipidemia. 7. Primary osteoarthritis in multiple joints. 8. Chronic low back pain. 9. Chronic nicotine dependence. Patient is a cigarette smoker. PLAN: Patient is started on antibiotics in the ER. Patient is on bronchodilators. Consultation is made to Infectious Disease and Pulmonary. Care was discussed with the patient and . The patient will be given a nicotine patch. Copy to Dr. Simmons. MMODL / IJN: [id number] /
[2019-02-24 20:03] LABS: Glucose,Whole Blood 149 mg/dL (75-99)
[2019-02-24] MEDS: ATORVASTATIN 80 MG TAB PO SCH (21:55)
[2019-02-25] MEDS: CLINDAMYCIN 600 MG in DEXTROSE 5% IN WATER 50 ML IVPB SCH ×6 (00:48→16:13)
[2019-02-25] MEDS: traMADol 50 MG TAB PO PRN ×4 (04:07→22:24)
[2019-02-25 07:11] LABS: Glucose,Whole Blood 121 mg/dL (75-99)
[2019-02-25] MEDS: ALLOPURINOL 100 MG TAB PO SCH (08:37)
[2019-02-25] MEDS: PANTOPRAZOLE 40 MG TABLET PO SCH (08:37)
[2019-02-25] MEDS: NICOTINE 21MG/24HR PATCH TRANSDERM SCH (08:37)
[2019-02-25] MEDS: GLIMEPIRIDE 4 MG TAB PO SCH (08:37)
[2019-02-25] MEDS: PIOGLITAZONE 15 MG TAB PO SCH (08:37)
[2019-02-25] MEDS: LOSARTAN-HCTZ 50-12.5 MG 1 EACH TAB PO SCH (08:37)
[2019-02-25] MEDS: PREGABALIN 75 MG CAP PO SCH ×2 (08:37→20:49)
[2019-02-25] MEDS: FENOFIBRATE 160 MG TAB PO SCH (08:38)
[2019-02-25] MEDS: LINAGLIPTIN 5 MG TABLET PO SCH (08:38)
[2019-02-25 11:08] LABS: Glucose,Whole Blood 144 mg/dL (75-99)
[2019-02-25] MEDS: MAGNESIUM SULFATE-D5W PMX 1 GM in DEXTROSE/WATER 1 100ML.BAG IVPB SCH ×3 (11:12→14:17)
--- NOTE | 2019-02-25 13:09 | P.PN ---
Subjective Progress Note Date: 02/25/19 Principal diagnosis: hemoptysis, right midlung cavitary mass. This is a very pleasant 58-year-old female patient who follows with Dr. Simmons as her primary care physician. She has a history of diabetes mellitus, hypertension, hyperlipidemia, gastroesophageal reflux disease, gout, arthritis. She also has chronic and ongoing tobacco dependence of 45 years. She presented here to the emergency room yesterday afternoon after having episodes of coughing up blood. She states that was in small amounts with some phlegm. No previous history of hemoptysis. Chest x-ray revealed a focal right lower lung consolidation versus mass with smaller areas of associated cavitation. Computed tomography scan of the chest revealed a right middle lobe cavitary mass measuring 4.1 x 2.0 cm. Suspect malignancy versus cavitary infiltrate. Abscess is not excluded. There is also suspected metastatic disease to the left adrenal gland with a mass measuring 2.0 x 2.6. White count 11.3. Hemoglobin 14.4. Creatinine 0.64. She has been initiated on DuoNeb inhalations, Symbicort, clindamycin and ceftriaxone. She is maintaining good O2 saturations in the 90s on room air. She's been afebrile. Hemodynamically stable. She is seen today in consultation on the oncology floor. Awake and alert in no acute distress. No worsening shortness of breath. Just scant amounts of blood-tinged sputum today. Reevaluated today on 02/25/2019, patient is doing better, breathing easier, presently on antibiotics, her hemoptysis is significantly improved. Denies any shortness of breath, no wheezing, no fever, no chills, no hemoptysis. O2 saturation is 94% on room air. Patient has a right middle lobe cavitary mass, the differential diagnoses includes squamous cell carcinoma or lung abscess. Patient will likely undergo bronchoscopy and transbronchial biopsy of the right middle lobe cavitary lesion by Dr. Patel she will remain nothing by mouth tonight. She is also aware of the risks and benefits of the procedure. Objective - Vital Signs Vital signs: Vital Signs Temp 97.6 F 02/25/19 11:34 Pulse 96 02/25/19 11:34 Resp 18 02/25/19 11:34 BP 119/84 02/25/19 11:34 Pulse Ox 94 L 02/25/19 11:34 Intake & Output 02/24/19 02/25/19 02/25/19 18:59 06:59 18:59 Intake Total 240 850 Balance 240 850 Intake: Intake, IV Titration 100 Amount Clindamycin 600 mg In 50 Dextrose 5% in Water 50 ml @ 50 mls/hr IVPB Q8HR [facility] Rx#:[id number] cefTRIAXone 1 gm In 50 Sodium Chloride 0.9% 50 ml @ 100 mls/hr IVPB Q24H [facility] Rx#:[id number] Oral 240 750 Other: Voiding Method Toilet Toilet # Voids 3 3 - Exam GENERAL EXAM: Alert, pleasant 58-year-old female, comfortable in no apparent distress. on room air. O2 sat is 94% HEAD: Normocephalic. EYES: Normal reaction of pupils, equal size. NOSE: Clear with pink turbinates. THROAT: No erythema or exudates. NECK: No masses, no JVD. CHEST: No chest wall deformity. LUNGS: Equal air entry with no crackles, wheeze, rhonchi or dullness. CVS: S1 and S2 normal with no audible murmur, regular rhythm. ABDOMEN: No hepatosplenomegaly, normal bowel sounds, no guarding or rigidity. SPINE: No scoliosis or deformity SKIN: No rashes CENTRAL NERVOUS SYSTEM: No focal deficits, tone is normal in all 4 extremities. EXTREMITIES: There is no peripheral edema. No clubbing, no cyanosis. Peripheral pulses are intact. lymphatics: No lymphadenopathy. - Labs CBC & Chem 7: 02/23/19 20:58 02/23/19 20:58 Labs: Abnormal Lab Results - Last 24 Hours (Table) 02/24/19 02/24/19 02/25/19 Range/Units 17:14 20:01 06:59 POC Glucose (mg/dL) 106 H 149 H 121 H (75-99) mg/dL Magnesium (1.6-2.3) mg/dL 02/25/19 02/25/19 Range/Units 08:39 11:02 POC Glucose (mg/dL) 144 H (75-99) mg/dL Magnesium 1.4 L (1.6-2.3) mg/dL Microbiology - Last 24 Hours (Table) 02/24/19 19:48 Gram Stain - Preliminary Sputum 02/23/19 20:58 Blood Culture Gram Stain - Preliminary Blood Blood Culture - Preliminary Coagulase Negative Staph 02/23/19 20:58 Blood Culture - Final Blood Assessment and Plan Assessment: #1 Hemoptysis secondary to a right middle lobe cavitary mass measuring 4.1 x 2.0 cm. Suspect malignancy versus cavitary infiltrate versus abscess. #2 Left adrenal mass measuring 2.0 x 2.6 cm, suspect metastasis. #3 Chronic and ongoing tobacco dependence of 45 years. #4 Diabetes mellitus. #5 Hypertension. #6 Hyperlipidemia. #7 History of gout. #8 Arthritis. #9 Gastroesophageal reflux disease. Recommendation: Discussed with the patient again the differential diagnoses of her cavitary right middle lobe mass, patient remains on antibiotics at present, she is on clindamycin and ceftriaxone, I have a strong suspicion that we may be dealing with bronchogenic carcinoma, and this will be determined hopefully by bronchoscopy which was already scheduled to be done by Dr. Patel tomorrow,mostly to evaluate her hemoptysis and evaluate for possible lung mass cavitating, and it is most likely consistent with squamous cell carcinoma. The possibility of lung abscess is definitely in the differential, and that needs to be addressed accordingly. Time with Patient: Less than 30
[2019-02-25 17:43] LABS: Glucose,Whole Blood 147 mg/dL (75-99)
--- NOTE | 2019-02-25 19:54 | P.CONS ---
History of Present Illness - Reason for Consult Consult date: 02/25/19 - Chief Complaint hemoptysis - History of Present Illness 58 year old woman with a 40 year history of smoking presents with hemoptysis, and chronic SOB. No weight loss, no fever or chills or night sweats. Generally fells poorly, poor exercise tolerance, and has chronic lower back pain and follows with pain clinic. States very uncomfortable today. As related a cavitary lesion was seen on the CAT scan with great concern underlying malignancy and bronchoscopy is planned for tomorrow. There is a cavitary process and with concerns to pneumonic process the infectious diseases consultation is requested. Review of Systems It is noted patient really does not feel well HEENT:Denies headache or acute visual change. Denies sinus or mouth discomforts. Denies neck stiffness or pain. Denies significant oral cavity pain. Denies difficulty on swallowing. Lungs: She has chronic shortness of breath chronic cough 1 episode of hemoptysis which caused her to seek care in the emergency center Cardiovascular: Denies significant shortness of breath, chest pain, chest wall pain, orthopnea, dyspnea on exertion, syncope Gastrointestinal:Denies nausea, vomiting, diarrhea, constipation, hematemesis, melena, hematochezia. No no significant change of bowel habit noticed. Musculoskeletal: His chronic severe back pain which limits her ability to ambulate well Skin is without rashes or lesions Neuro: Denies headache or visual change. Denies any new onset weakness or difficulty with ambulation. Denies falls or seizures. Psychiatric:Denies anxiety or depression. Endocrine: Chronic fatigue has not lost weight Past Medical History Past Medical History: Diabetes Mellitus, Hyperlipidemia, Hypertension Additional Past Medical History / Comment(s): start of glaucoma barely just starting, per patient her "knees have been giving out lately" DDD History of Any Multi-Drug Resistant Organisms: None Reported Past Surgical History: Section, Cholecystectomy, Tubal Ligation Additional Past Surgical History / Comment(s): BACK SURGERY DURING CHILDHOOD MARBIN PLACED FOR SCOLIOSIS, been having epidural/steroid back injections for back pain recently. [facility], multiple breast biopsies due to benign lesions, r ecent mri of spine in 10/2018 Past Anesthesia/Blood Transfusion Reactions: No Reported Reaction Past Psychological History: No Psychological Hx Reported Additional Psychological History / Comment(s): lives in the family home with the . Current tobacco smoker in 40 years. No significant alcohol use. Does not work outside of the home. No animal exposures related Smoking Status: Current every day smoker Past Alcohol Use History: None Reported Past Drug Use History: None Reported Additional Drug Use History / Comment(s): smokes a pack a day - Past Family History Brother(s) Family Medical History: Diabetes Mellitus Mother Family Medical History: Cancer Father Family Medical History: Cancer Medications and Allergies Home Medications and Allergies Comment(s): Current Medications Albuterol Sulfate (Ventolin Nebulized) 2.5 mg INHALATION RT-Q6H PRN PRN Reason: Shortness Of Breath Albuterol/Ipratropium (Duoneb 0.5 Mg-3 Mg/3 Ml Soln) 3 ml INHALATION RT-Q4H PRN PRN Reason: shortness of breath Allopurinol (Zyloprim) 100 mg PO DAILY [facility] Last Admin: 02/25/19 08:37 Dose: 100 mg Documented by: Atorvastatin Calcium (Lipitor) [address] [facility] Last Admin: 02/24/19 21:55 Dose: 80 mg Documented by: Budesonide/Formoterol Fumarate (Symbicort 160-4.5 Mcg Inhaler) 2 puff INHALATION RT-BID PRN PRN Reason: Shortness Of Breath Last Admin: 02/24/19 19:56 Dose: 2 puff Documented by: Cyclobenzaprine HCl (Flexeril) [address] [facility] Last Admin: 02/24/19 21:55 Dose: 10 mg Documented by: Ergocalciferol (Vitamin D2) 50,000 unit PO Mo@0900 [facility] Fenofibrate (Lofibra) 160 mg PO DAILY [facility] Last Admin: 02/25/19 08:38 Dose: 160 mg Documented by: Glimepiride (Amaryl) 8 mg PO DAILY [facility] Last Admin: 02/25/19 08:37 Dose: 8 mg Documented by: HCTZ/Losartan Potassium (Hyzaar 50-12.5) 2 each PO DAILY [facility] Last Admin: 02/25/19 08:37 Dose: 2 each Documented by: Ceftriaxone Sodium 1 gm/ (Sodium Chloride) 50 mls @ 100 mls/hr IVPB Q24H [facility] Stop: 02/27/19 21:01 Last Admin: 02/24/19 21:55 Dose: 100 mls/hr Documented by: Clindamycin Phosphate 600 mg/ (Dextrose/Water) 54 mls @ 50 mls/hr IVPB Q8HR [facility] Stop: 03/06/19 00:01 Last Admin: 02/25/19 16:13 Dose: 50 mls/hr Documented by: Linagliptin (Tradjenta) 5 mg PO DAILY [facility] Last Admin: 02/25/19 08:38 Dose: 5 mg Documented by: Metformin HCl (Glucophage) 1,000 mg PO BID [facility] Miscellaneous Information (Pneumonia Protocol Utilized) 1 each PO ONCE PRN PRN Reason: Per Protocol Miscellaneous Information (Rx Info: Iv Contrast Was Given) 1 each MISCELLANE DAILY PRN PRN Reason: Per Protocol Stop: 02/25/19 20:23 Miscellaneous Information (Magnesium Per Protocol) 1 each MISCELLANE DAILY PRN; Protocol PRN Reason: Per Protocol Nicotine (Habitrol 21mg/24hr Patch) 1 patch TRANSDERM DAILY [facility] Last Admin: 02/25/19 08:37 Dose: 1 patch Documented by: Pantoprazole Sodium (Protonix) 40 mg PO DAILY [facility] Last Admin: 02/25/19 08:37 Dose: 40 mg Documented by: Pioglitazone HCl (Actos) 15 mg PO DAILY [facility] Last Admin: 02/25/19 08:37 Dose: 15 mg Documented by: Pregabalin (Lyrica) 75 mg PO BID [facility] Last Admin: 02/25/19 08:37 Dose: 75 mg Documented by: Ropinirole HCl (Requip) 0.[address] [facility] Last Admin: 02/24/19 22:33 Dose: 0.25 mg Documented by: Tramadol HCl (Ultram) 50 mg PO Q6H PRN PRN Reason: Pain Last Admin: 02/25/19 16:19 Dose: 50 mg Documented by: Home Medications Medication Instructions Recorded Confirmed Type Cyclobenzaprine [Flexeril] 10 mg PO HS 07/11/14 02/23/19 History traMADol HCl [Ultram] 50 mg PO Q6H PRN 07/11/14 02/23/19 History Omeprazole [PriLOSEC] 20 mg PO DAILY 08/05/14 02/23/19 History Allopurinol 100 mg PO DAILY 05/27/16 02/23/19 History Atorvastatin [Lipitor] 80 mg PO HS 05/27/16 02/23/19 History Ergocalciferol (Vitamin D2) 50,000 unit PO MO 05/27/16 02/23/19 History [Drisdol] Fenofibrate 160 mg PO DAILY 05/27/16 02/23/19 History Glimepiride [Amaryl] 8 mg PO DAILY 06/28/17 02/23/19 History metFORMIN HCL [Glucophage] 1,000 mg PO BID 06/28/17 02/23/19 History Alogliptin Benzoate [Alogliptin] 25 mg PO DAILY 06/02/18 02/23/19 History Losartan/Hydrochlorothiazide 1 tab PO DAILY 06/02/18 02/23/19 History [Losartan-Hctz 100-25 mg Tab] rOPINIRole HCL [Requip] 0.25 mg PO HS 06/02/18 02/23/19 History Albuterol Inhaler [Ventolin Hfa 2 puff INHALATION RT-Q6H PRN 02/23/19 02/23/19 History Inhaler] Budesonide-Formot 160-4.5 Mcg 2 puff INHALATION RT-BID PRN 02/23/19 02/23/19 History [Symbicort 160-4.5 Mcg Inhaler] Pioglitazone HCl 15 mg PO DAILY 02/23/19 02/23/19 History Pregabalin [Lyrica] 75 mg PO BID 02/23/19 02/23/19 History Allergies Allergy/AdvReac Type Severity Reaction Status Date / Time codeine AdvReac Severe Abdominal Verified 02/23/19 20:50 Pain Physical Exam Vitals: Vital Signs Temp Pulse Pulse Resp BP Pulse Ox 02/25/19 11:34 97.6 F 96 18 119/84 94 L 02/25/19 05:02 97.6 F 86 18 104/73 92 L 02/24/19 22:02 97.8 F 97 18 108/74 94 L 02/24/19 19:58 96 Intake and Output 02/25/19 02/25/19 02/25/19 06:59 14:59 22:59 Intake Total 50 Balance 50 Intake: Intake, IV Titration 50 Amount Clindamycin 600 mg In 50 Dextrose 5% in Water 50 ml @ 50 mls/hr IVPB Q8HR [facility] Rx#:[id number] Other: Voiding Method Toilet # Voids 3 1 1 Pleasant obese 58-year-old woman not in current distress HEENT: Anicteric conjunctiva are pink and moist nasal mucosa grossly intact without significant lesions, there is no thrush. Edentulous Neck: The neck is supple without significant lymphadenopathy or thyromegaly. Lungs: Symmetrical air entry is noted, some expiratory wheezes are scattered but no antionette bronchial sounds be noted there is no dullness or egophony Heart: Regular rate and rhythm with an audible S1-S2, no S3 no S4. There is no significant murmur click or rub, PMI was nondisplaced. Abdomen: Obese, Positive bowel sounds soft and nontender without palpable masses or organomegaly. There was no guarding or rebound. Extremities: The upper extremities have excellent pulses they are symmetric, no significant petechiae or telangiectasia. No splinter hemorrhages were noted. The lower extremities are free from significant edema. The peripheral pulses were 2+ and symmetric. Neuro: Awake alert oriented to person place and time. There are no acute new gross focal sensory motor deficits. Results CBC & Chem 7: 02/23/19 20:58 02/23/19 20:58 Labs: Abnormal Lab Results - Last 24 Hours (Table) 02/24/19 02/25/19 02/25/19 Range/Units 20:01 06:59 08:39 POC Glucose (mg/dL) 149 H 121 H (75-99) mg/dL Magnesium 1.4 L (1.6-2.3) mg/dL 02/25/19 02/25/19 Range/Units 11:02 17:31 POC Glucose (mg/dL) 144 H 147 H (75-99) mg/dL Magnesium (1.6-2.3) mg/dL Microbiology - Last 24 Hours (Table) 02/24/19 19:48 Gram Stain - Preliminary Sputum 02/23/19 20:58 Blood Culture Gram Stain - Preliminary Blood Blood Culture - Preliminary Coagulase Negative Staph 02/23/19 20:58 Blood Culture - Final Blood Laboratory Results WBC 11.3 k/uL (3.8-10.6) H 02/23/19 20:58 RBC 4.77 m/uL (3.80-5.40) 02/23/19 20:58 Hgb 14.4 gm/dL (11.4-16.0) 02/23/19 20:58 Hct 41.6 % (34.0-46.0) 02/23/19 20:58 MCV 87.1 fL (80.0-100.0) 02/23/19 20:58 MCH 30.1 pg (25.0-35.0) 02/23/19 20:58 MCHC 34.5 g/dL (31.0-37.0) 02/23/19 20:58 RDW 13.7 % (11.5-15.5) 02/23/19 20:58 Plt Count 514 k/uL (150-450) H 02/23/19 20:58 Neutrophils % 64 % 02/23/19 20:58 Lymphocytes % 25 % 02/23/19 20:58 Monocytes % 4 % 02/23/19 20:58 Eosinophils % 4 % 02/23/19 20:58 Basophils % 1 % 02/23/19 20:58 Neutrophils # 7.2 k/uL (1.3-7.7) 02/23/19 20:58 Lymphocytes # 2.9 k/uL (1.0-4.8) 02/23/19 20:58 Monocytes # 0.5 k/uL (0-1.0) 02/23/19 20:58 Eosinophils # 0.4 k/uL (0-0.7) 02/23/19 20:58 Basophils # 0.1 k/uL (0-0.2) 02/23/19 20:58 PT 11.7 sec (9.0-12.0) 02/23/19 20:58 INR 1.1 (<1.2) 02/23/19 20:58 APTT 24.0 sec (22.0-30.0) 02/23/19 20:58 Sodium 135 mmol/L (137-145) L 02/23/19 20:58 Potassium 4.3 mmol/L (3.5-5.1) 02/23/19 20:58 Chloride 96 mmol/L (98-107) L 02/23/19 20:58 Carbon Dioxide 25 mmol/L (22-30) 02/23/19 20:58 Anion Gap 14 mmol/L 02/23/19 20:58 BUN 14 mg/dL (7-17) 02/23/19 20:58 Creatinine 0.64 mg/dL (0.52-1.04) 02/23/19 20:58 Est GFR (CKD-EPI)AfAm >90 (>60 ml/min/1.73 sqM) 02/23/19 20:58 Est GFR (CKD-EPI)NonAf >90 (>60 ml/min/1.73 sqM) 02/23/19 20:58 Glucose 90 mg/dL (74-99) 02/23/19 20:58 POC Glucose (mg/dL) 147 mg/dL (75-99) H 02/25/19 17:31 POC Glu Economics Lecturer ID Kaylee Bernal 02/25/19 17:31 Calcium 9.2 mg/dL (8.4-10.2) 02/23/19 20:58 Magnesium 1.4 mg/dL (1.6-2.3) L 02/25/19 08:39 Total Bilirubin 0.5 mg/dL (0.2-1.3) 02/23/19 20:58 AST 29 U/L (14-36) 02/23/19 20:58 ALT 31 U/L (9-52) 02/23/19 20:58 Alkaline Phosphatase 71 U/L (38-126) 02/23/19 20:58 Troponin I <0.012 ng/mL (0.000-0.034) 02/23/19 20:58 Total Protein 6.9 g/dL (6.3-8.2) 02/23/19 20:58 Albumin 4.0 g/dL (3.5-5.0) 02/23/19 20:58 Microbiology 02/24/19 19:48 Sputum Gram Stain - Preliminary 02/23/19 20:58 Blood Blood Culture Gram Stain - Preliminary 02/23/19 20:58 Blood Blood Culture - Preliminary Coagulase Negative Staph 02/23/19 20:58 Blood Blood Culture - Final Assessment and Plan (1) Hemoptysis Current Visit: Yes Status: Acute Code(s): R04.2 - HEMOPTYSIS SNOMED Code(s): 36088482 (2) Lung mass Current Visit: Yes Status: Acute Code(s): R91.8 - OTHER NONSPECIFIC ABNORMAL FINDING OF LUNG FIELD SNOMED Code(s): 198271267 (3) Coagulase negative Staphylococcus bacteremia Narrative/Plan: 58-year-old woman who has a history of chronic pain syndrome due to her severe spinal stenosis followed local pain clinic relates that she had a sudden onset of hemoptysis. She constantly sought care in hospital and images reveal evidence of a cavitary lesion in the right middle lobe. There is concern for metastatic disease to the left adrenal gland. Patient will undergo bronchoscopy tomorrow. At that point in time in addition to biopsies and cytology cultures including anaerobic and mycobacterial would be appreciated to further help with the treatment plans. Currently receiving Rocephin and clindamycin which is adequate if this is a cavitary abscess. The positive blood cultures coagulase negative staph in is likely contamination would not change current antibiotic therapy. Current Visit: Yes Status: Acute Code(s): R78.81 - BACTEREMIA SNOMED Code(s): 676453055027
[2019-02-25] MEDS: CYCLOBENZAPRINE 10 MG TAB PO SCH (20:49)
[2019-02-25] MEDS: metFORMIN 500 MG TAB PO SCH (20:49)
[2019-02-25] MEDS: HYDROcodone/APAP 5-325MG 1 EACH TAB PO PRN (20:50)
[2019-02-25] MEDS: ATORVASTATIN 80 MG TAB PO SCH (20:50)
[2019-02-25 21:08] LABS: Glucose,Whole Blood 129 mg/dL (75-99)
[2019-02-26] MEDS: CLINDAMYCIN 600 MG in DEXTROSE 5% IN WATER 50 ML IVPB SCH ×8 (00:31→23:36)
[2019-02-26] MEDS: HYDROcodone/APAP 5-325MG 1 EACH TAB PO PRN ×5 (03:25→22:10)
--- NOTE | 2019-02-26 04:11 | PN ---
PROGRESS NOTE DATE OF SERVICE: 02/25/2019 PRESENTING COMPLAINT: Tired. INTERVAL HISTORY: This patient is a smoker, presented with hemoptysis, felt to have a lung mass, could be malignant and/or abscess. The patient is pending a bronchoscopy tomorrow. No further hemoptysis. Lying in bed, a bit tired. REVIEW OF SYSTEMS: Done for constitutional, cardiovascular, GI, pulmonary and relevant findings as above. CURRENT MEDICATIONS: Reviewed and include IV ceftriaxone and clindamycin. PHYSICAL EXAMINATION: VITAL SIGNS: Temperature 97.6, pulse 96, respiratory rate 18, blood pressure 119/84, pulse ox 94 percent on room air. GENERAL APPEARANCE: Lying in bed, awake. EYES: Pupils equal. Conjunctivae normal. NECK: JVD not raised. Mass not palpable. RESPIRATORY: Effort normal. LUNGS: Decreased breath sounds. CARDIOVASCULAR: First and second sounds normal. No edema. ABDOMEN: Soft, nontender. Liver and spleen not palpable. PSYCHIATRY: Alert and oriented x3. Mood and affect normal. INVESTIGATIONS: No blood work from today. The patient's blood cultures growing coag-negative staph. ASSESSMENT: 1. Right middle lung mass with hemoptysis strongly suspicious for malignancy, especially given that the blood cultures growing a contaminant. The patient has not had any obvious fevers. 2. Obesity; BMI 37.9. 3. Chronic obstructive pulmonary disease in a current smoker. 4. Diabetes mellitus type 2 on oral hypoglycemic. 5. Essential hypertension. 6. Hyperlipidemia. 7. Primary osteoarthritis multiple joints. 8. Chronic low back pain. 9. Chronic nicotine dependence, patient is a cigarette smoker. PLAN: We will check labs in the morning. The patient is due for a bronchoscopy tomorrow. Antibiotics per Dr. Berrios. Follow. MMODL / IJN: [id number] /
[2019-02-26] MEDS: traMADol 50 MG TAB PO PRN ×3 (05:57→19:20)
[2019-02-26 07:09] LABS: Glucose,Whole Blood 97 mg/dL (75-99)
[2019-02-26 08:46] LABS: Basophils % (A) 1 %; Eosinophils # (A) 0.4 k/uL (0-0.7); Eosinophils % (A) 5 %; HCT 35.9 % (34.0-46.0); HGB 11.8 gm/dL (11.4-16.0); Lymphocytes # (A) 2.7 k/uL (1.0-4.8); Lymphocytes % (A) 35 %; MCHC 32.8 g/dL (31.0-37.0); MCV 88.3 fL (80.0-100.0); Mean Platelet Volume 7.3; Monocytes # (A) 0.4 k/uL (0-1.0); Monocytes % (A) 5 %; Neutrophils # (A) 4.1 k/uL (1.3-7.7); Neutrophils % (A) 52 %; Platelet Count 476 k/uL (150-450); RBC 4.07 m/uL (3.80-5.40); RDW 13.8 % (11.5-15.5); WBC 7.9 k/uL (3.8-10.6)
[2019-02-26 08:57] LABS: African American GFR (CKD) >90 (>60 ml/min/1.73 sqM); Anion Gap 6 mmol/L; Blood Urea Nitrogen 15 mg/dL (7-17); Carbon Dioxide 29 mmol/L (22-30); Chloride 100 mmol/L (98-107); Glucose 79 mg/dL (74-99); Magnesium 1.4 mg/dL (1.6-2.3); Potassium 4.5 mmol/L (3.5-5.1); Sodium 135 mmol/L (137-145)
[2019-02-26] MEDS ORDERED: ERGOCALCIFEROL 50,000 UNIT CAP PO SCH (09:00)
[2019-02-26] MEDS: GLIMEPIRIDE 4 MG TAB PO SCH ×2 (09:07→11:01)
[2019-02-26] MEDS: NICOTINE 21MG/24HR PATCH TRANSDERM SCH (09:08)
[2019-02-26] MEDS: ALLOPURINOL 100 MG TAB PO SCH (09:12)
[2019-02-26] MEDS: PREGABALIN 75 MG CAP PO SCH ×2 (09:12→20:45)
[2019-02-26] MEDS: PANTOPRAZOLE 40 MG TABLET PO SCH (09:12)
[2019-02-26] MEDS: PIOGLITAZONE 15 MG TAB PO SCH ×2 (09:12→10:59)
[2019-02-26] MEDS: FENOFIBRATE 160 MG TAB PO SCH (09:13)
[2019-02-26] MEDS: LOSARTAN-HCTZ 50-12.5 MG 1 EACH TAB PO SCH (09:13)
[2019-02-26] MEDS: LINAGLIPTIN 5 MG TABLET PO SCH ×2 (09:13→10:59)
[2019-02-26] MEDS: metFORMIN 500 MG TAB PO SCH ×3 (09:14→20:44)
[2019-02-26] MEDS: SYMBICORT 160-4.5 MCG INHALER INHALATION PRN ×2 (11:08→21:49)
[2019-02-26 11:11] LABS: Glucose,Whole Blood 109 mg/dL (75-99)
[2019-02-26] MEDS: MAGNESIUM SULFATE-D5W PMX 1 GM in DEXTROSE/WATER 1 100ML.BAG IVPB SCH ×3 (12:32→14:48)
--- NOTE | 2019-02-26 14:20 | P.PN ---
Subjective Progress Note Date: 02/26/19 Principal diagnosis: Hemoptysis, right midlung cavitary mass This is a very pleasant 58-year-old female patient who follows with Dr. Simmons as her primary care physician. She has a history of diabetes mellitus, hypertension, hyperlipidemia, gastroesophageal reflux disease, gout, arthritis. She also has chronic and ongoing tobacco dependence of 45 years. She presented here to the emergency room yesterday afternoon after having episodes of coughing up blood. She states that was in small amounts with some phlegm. No previous history of hemoptysis. Chest x-ray revealed a focal right lower lung consolidation versus mass with smaller areas of associated cavitation. Computed tomography scan of the chest revealed a right middle lobe cavitary mass measuring 4.1 x 2.0 cm. Suspect malignancy versus cavitary infiltrate. Abscess is not excluded. There is also suspected metastatic disease to the left adrenal gland with a mass measuring 2.0 x 2.6. White count 11.3. Hemoglobin 14.4. Creatinine 0.64. She has been initiated on DuoNeb inhalations, Symbicort, clindamycin and ceftriaxone. She is maintaining good O2 saturations in the 90s on room air. She's been afebrile. Hemodynamically stable. She is seen today in consultation on the oncology floor. Awake and alert in no acute distress. No worsening shortness of breath. Just scant amounts of blood-tinged sputum today. Reevaluated today on 02/25/2019, patient is doing better, breathing easier, presently on antibiotics, her hemoptysis is significantly improved. Denies any shortness of breath, no wheezing, no fever, no chills, no hemoptysis. O2 saturation is 94% on room air. Patient has a right middle lobe cavitary mass, the differential diagnoses includes squamous cell carcinoma or lung abscess. Patient will likely undergo bronchoscopy and transbronchial biopsy of the right middle lobe cavitary lesion by Dr. Patel she will remain nothing by mouth tonight. She is also aware of the risks and benefits of the procedure. On 02/26/2019 patient seen in follow-up on oncology floor. She is resting in bed, in no acute distress, no complaints of dyspnea, no hemoptysis today, no fever or chills, room air pulse ox is 92%, patient is afebrile. Sputum culture no growth, blood cultures have been negative with the exception of the culture from 02/23/2019 positive for coagulase-negative staph, likely contaminated. Today's blood work has been noted, unremarkable. No complaints of chest pain. A pneumatic coverage in the form of Rocephin and clindamycin Objective - Vital Signs Vital signs: Vital Signs Temp 98.5 F 02/26/19 11:30 Pulse 95 02/26/19 11:30 Resp 16 02/26/19 11:30 BP 134/80 02/26/19 11:30 Pulse Ox 92 L 02/26/19 11:30 Intake & Output 02/25/19 02/26/19 02/26/19 18:59 06:59 18:59 Intake Total 450 Balance 450 Intake: Intake, IV Titration 100 Amount Clindamycin 600 mg In 50 Dextrose 5% in Water 50 ml @ 50 mls/hr IVPB Q8HR [facility] Rx#:[id number] cefTRIAXone 1 gm In 50 Sodium Chloride 0.9% 50 ml @ 100 mls/hr IVPB Q24H [facility] Rx#:[id number] Oral 350 Other: Voiding Method Toilet Toilet # Voids 1 2 - Exam GENERAL EXAM: Alert, pleasant, 58-year-old white female, resting comfortably in bed comfortable in no apparent distress. HEAD: Normocephalic/atraumatic. EYES: Normal reaction of pupils, equal size. Conjunctiva pink, sclera white. NOSE: Clear with pink turbinates. THROAT: No erythema or exudates. NECK: No masses, no JVD, no thyroid enlargement, no adenopathy. CHEST: No chest wall deformity. Symmetrical expansion. LUNGS: Equal air entry with no crackles, wheeze, rhonchi or dullness. CVS: Regular rate and rhythm, normal S1 and S2, no gallops, no murmurs, no rubs ABDOMEN: Soft, nontender. No hepatosplenomegaly, normal bowel sounds, no guarding or rigidity. EXTREMITIES: No clubbing, no edema, no cyanosis, 2+ pulses and upper and lower extremities. MUSCULOSKELETAL: Muscle strength and tone normal. SPINE: No scoliosis or deformity SKIN: No rashes CENTRAL NERVOUS SYSTEM: Alert and oriented -3. No focal deficits, tone is normal in all 4 extremities. PSYCHIATRIC: Alert and oriented -3. Appropriate affect. Intact judgment and insight. - Labs CBC & Chem 7: 02/26/19 07:34 02/26/19 07:34 Labs: Abnormal Lab Results - Last 24 Hours (Table) 02/25/19 02/25/19 02/26/19 Range/Units 17:31 20:47 07:34 Plt Count (150-450) k/uL Sodium 135 L (137-145) mmol/L POC Glucose (mg/dL) 147 H 129 H (75-99) mg/dL Magnesium 1.4 L (1.6-2.3) mg/dL 02/26/19 02/26/19 Range/Units 07:34 11:09 Plt Count 476 H (150-450) k/uL Sodium (137-145) mmol/L POC Glucose (mg/dL) 109 H (75-99) mg/dL Magnesium (1.6-2.3) mg/dL Microbiology - Last 24 Hours (Table) 02/24/19 19:48 Gram Stain - Final Sputum Sputum Culture - Final 02/23/19 20:58 Blood Culture Gram Stain - Preliminary Blood Blood Culture - Preliminary Coagulase Negative Staph 02/24/19 18:57 Blood Culture - Preliminary Blood No Growth after 24 hours 02/24/19 18:49 Blood Culture - Preliminary Blood No Growth after 24 hours Assessment and Plan Plan: Assessment: #1 Hemoptysis secondary to a right middle lobe cavitary mass measuring 4.1 x 2.0 cm. Suspect malignancy versus cavitary infiltrate versus abscess. #2 Left adrenal mass measuring 2.0 x 2.6 cm, suspect metastasis. #3 Chronic and ongoing tobacco dependence of 45 years. #4 Diabetes mellitus. #5 Hypertension. #6 Hyperlipidemia. #7 History of gout. #8 Arthritis. #9 Gastroesophageal reflux disease. Plan: Continue current antibiotic coverage, patient was given the option of having a navigational bronchoscopy on Tuesday rather than proceeding with bronchoscopy and biopsies of the right middle lobe with right middle lobe mass under fluoroscopy. Patient opted for the navigational bronchoscopy, she will be scheduled for tomorrow afternoon at 12 PM, nothing by mouth after midnight, schedule the procedure with anesthesia. This will be done in the OR, and we will need pathology in the room. Now continue with current medical treatment. The far cultures are negative, no fever or chills, right middle lobe cavitary mass possibly be related to an abscess versus malignancy. The patient is stable, hemoptysis has subsided, vitals are stable. I performed a history & physical examination of the patient and discussed their management with my nurse practitioner, Gladys Feliciano. I reviewed the nurse practitioner's note and agree with the documented findings and plan of care. L anna sounds are positive for diffuse wheezes throughout the lung marquez. The findings and the impression was discussed with the patient. I attest to the documentation by the nurse practitioner. Time with Patient: Less than 30
[2019-02-26 17:05] LABS: Glucose,Whole Blood 122 mg/dL (75-99)
--- NOTE | 2019-02-26 20:16 | PN ---
PROGRESS NOTE DATE OF SERVICE: 02/26/2019 PRESENTING COMPLAINT: Hemoptysis. INTERVAL HISTORY: The patient is a smoker who presented with hemoptysis, found to have a lung mass felt strongly to be malignant, less likely an abscess. Patient is rescheduled for navigational bronchoscopy tomorrow. Otherwise tolerating her diet. No new issues. No further hemoptysis. REVIEW OF SYSTEMS: Done for constitutional, cardiovascular, GI, pulmonary; relevant findings as above. CURRENT MEDICATIONS: Reviewed. They include IV ceftriaxone and clindamycin. PHYSICAL EXAMINATION: Temperature 98.5, pulse 95, respiration 16, blood pressure 134/80, pulse ox 92% on room air. GENERAL APPEARANCE: Sitting up, awake. EYES: Pupils equal. Conjunctivae normal. NECK: JVD not raised. Mass not palpable. RESPIRATORY: Effort LUNGS: Decreased breath sounds. CARDIOVASCULAR: First and second sounds normal. No edema. ABDOMEN: Soft, non-tender. Liver and spleen not palpable. PSYCHIATRY: Alert and oriented x3. Mood and affect normal. INVESTIGATIONS: Accu-Cheks are noted. White count 7.9, hemoglobin 11.8, potassium 4.5. ASSESSMENT: 1. Right middle lobe lung mass with hemoptysis, strongly suspicious for malignancy, less suspicious for abscess. 2. Obesity; body mass index 37.9. 3. Blood culture is felt to be a contaminant. 4. Chronic obstructive pulmonary disease in a current smoker. 5. Diabetes mellitus, type 2, on oral hypoglycemic. 6. Essential hypertension. 7. Hyperlipidemia. 8. Primary osteoarthritis in multiple joints. 9. Chronic low back pain. 10.Chronic nicotine dependence. Patient is a cigarette smoker. PLAN: Care was discussed with the patient. Antibiotics per Dr. Berrios. Awaiting navigational bronchoscopy tomorrow. MMODL / IJN: [id number] /
[2019-02-26] MEDS: ATORVASTATIN 80 MG TAB PO SCH (20:45)
[2019-02-26] MEDS: CYCLOBENZAPRINE 10 MG TAB PO SCH (20:45)
[2019-02-26 20:48] LABS: Glucose,Whole Blood 112 mg/dL (75-99)
--- NOTE | 2019-02-26 22:20 | P.PN ---
Subjective Progress Note Date: 02/26/19 58 year old woman with a 40 year history of smoking presents with hemoptysis, and chronic SOB. No weight loss, no fever or chills or night sweats. Generally fells poorly, poor exercise tolerance, and has chronic lower back pain and follows with pain clinic. States very uncomfortable today. As related a cavitary lesion was seen on the CAT scan with great concern underlying malignancy and bronchoscopy is planned for tomorrow. There is a cavitary process and with concerns to pneumonic process the infectious diseases consultation is requested. 02/26/2019 patient continues to feel somewhat poorly. However no further hemoptysis occurred. She's been seen by pulmonary medicine and plans for the guided bronchoscopy tomorrow have been made. She has no other acute complaints at this time. No fevers or chills. Objective - Vital Signs Vital signs: Vital Signs Temp 97.5 F L 02/26/19 21:00 Pulse 89 02/26/19 21:00 Resp 17 02/26/19 21:00 BP 101/72 02/26/19 21:00 Pulse Ox 97 02/26/19 21:00 Intake & Output 02/26/19 02/26/19 02/27/19 06:59 18:59 06:59 Intake Total 450 100 Balance 450 100 Intake: Intake, IV Titration 100 100 Amount Clindamycin 600 mg In 50 Dextrose 5% in Water 50 ml @ 50 mls/hr IVPB Q8HR [facility] Rx#:[id number] Magnesium Sulfate-D5w Pmx 100 1 gm In Dextrose/Water 1 100ml.bag @ 100 mls/hr IVPB Q1H [facility] Rx#: [id number] cefTRIAXone 1 gm In 50 Sodium Chloride 0.9% 50 ml @ 100 mls/hr IVPB Q24H [facility] Rx#:[id number] Oral 350 Other: Voiding Method Toilet Toilet # Voids 2 2 - Exam Pleasant obese 58-year-old woman not in current distress HEENT: Anicteric conjunctiva are pink and moist nasal mucosa grossly intact with out significant lesions, there is no thrush. Edentulous Neck: The neck is supple without significant lymphadenopathy or thyromegaly. Lungs: Symmetrical air entry is noted, some expiratory wheezes are scattered but no antionette bronchial sounds be noted there is no dullness or egophony Heart: Regular rate and rhythm with an audible S1-S2, no S3 no S4. There is no significant murmur click or rub, PMI was nondisplaced. Abdomen: Obese, Positive bowel sounds soft and nontender without palpable masses or organomegaly. There was no guarding or rebound. Extremities: The upper extremities have excellent pulses they are symmetric, no significant petechiae or telangiectasia. No splinter hemorrhages were noted. The lower extremities are free from significant edema. The peripheral pulses were 2+ and symmetric. Neuro: Awake alert oriented to person place and time. There are no acute new gross focal sensory motor deficits. - Labs CBC & Chem 7: 02/26/19 07:34 02/26/19 07:34 Labs: Abnormal Lab Results - Last 24 Hours (Table) 02/26/19 02/26/19 02/26/19 Range/Units 07:34 07:34 11:09 Plt Count 476 H (150-450) k/uL Sodium 135 L (137-145) mmol/L POC Glucose (mg/dL) 109 H (75-99) mg/dL Magnesium 1.4 L (1.6-2.3) mg/dL 02/26/19 02/26/19 Range/Units 17:04 20:05 Plt Count (150-450) k/uL Sodium (137-145) mmol/L POC Glucose (mg/dL) 122 H 112 H (75-99) mg/dL Magnesium (1.6-2.3) mg/dL Microbiology - Last 24 Hours (Table) 02/24/19 18:57 Blood Culture - Preliminary Blood No Growth after 48 hours 02/24/19 18:49 Blood Culture - Preliminary Blood No Growth after 48 hours 02/24/19 19:48 Gram Stain - Final Sputum Sputum Culture - Final 02/23/19 20:58 Blood Culture Gram Stain - Preliminary Blood Blood Culture - Preliminary Coagulase Negative Staph Laboratory Results WBC 7.9 k/uL (3.8-10.6) 02/26/19 07:34 RBC 4.07 m/uL (3.80-5.40) 02/26/19 07:34 Hgb 11.8 gm/dL (11.4-16.0) 02/26/19 07:34 Hct 35.9 % (34.0-46.0) 02/26/19 07:34 MCV 88.3 fL (80.0-100.0) 02/26/19 07:34 MCH 29.0 pg (25.0-35.0) 02/26/19 07:34 MCHC 32.8 g/dL (31.0-37.0) 02/26/19 07:34 RDW 13.8 % (11.5-15.5) 02/26/19 07:34 Plt Count 476 k/uL (150-450) H 02/26/19 07:34 Neutrophils % 52 % 02/26/19 07:34 Lymphocytes % 35 % 02/26/19 07:34 Monocytes % 5 % 02/26/19 07:34 Eosinophils % 5 % 02/26/19 07:34 Basophils % 1 % 02/26/19 07:34 Neutrophils # 4.1 k/uL (1.3-7.7) 02/26/19 07:34 Lymphocytes # 2.7 k/uL (1.0-4.8) 02/26/19 07:34 Monocytes # 0.4 k/uL (0-1.0) 02/26/19 07:34 Eosinophils # 0.4 k/uL (0-0.7) 02/26/19 07:34 Basophils # 0.0 k/uL (0-0.2) 02/26/19 07:34 PT 11.7 sec (9.0-12.0) 02/23/19 20:58 INR 1.1 (<1.2) 02/23/19 20:58 APTT 24.0 sec (22.0-30.0) 02/23/19 20:58 Sodium 135 mmol/L (137-145) L 02/26/19 07:34 Potassium 4.5 mmol/L (3.5-5.1) 02/26/19 07:34 Chloride 100 mmol/L (98-107) 02/26/19 07:34 Carbon Dioxide 29 mmol/L (22-30) 02/26/19 07:34 Anion Gap 6 mmol/L 02/26/19 07:34 BUN 15 mg/dL (7-17) 02/26/19 07:34 Creatinine 0.77 mg/dL (0.52-1.04) 02/26/19 07:34 Est GFR (CKD-EPI)AfAm >90 (>60 ml/min/1.73 sqM) 02/26/19 07:34 Est GFR (CKD-EPI)NonAf 84 (>60 ml/min/1.73 sqM) 02/26/19 07:34 Glucose 79 mg/dL (74-99) 02/26/19 07:34 POC Glucose (mg/dL) 112 mg/dL (75-99) H 02/26/19 20:05 POC Glu Overhauler Helper ID Kaylee Reynoso 02/26/19 20:05 Calcium 9.0 mg/dL (8.4-10.2) 02/26/19 07:34 Magnesium 2.1 mg/dL (1.6-2.3) 02/26/19 18:43 Total Bilirubin 0.5 mg/dL (0.2-1.3) 02/23/19 20:58 AST 29 U/L (14-36) 02/23/19 20:58 ALT 31 U/L (9-52) 02/23/19 20:58 Alkaline Phosphatase 71 U/L (38-126) 02/23/19 20:58 Troponin I <0.012 ng/mL (0.000-0.034) 02/23/19 20:58 Total Protein 6.9 g/dL (6.3-8.2) 02/23/19 20:58 Albumin 4.0 g/dL (3.5-5.0) 02/23/19 20:58 Microbiology 02/24/19 18:57 Blood Blood Culture - Preliminary No Growth after 48 hours 02/24/19 18:49 Blood Blood Culture - Preliminary No Growth after 48 hours 02/24/19 19:48 Sputum Gram Stain - Final 02/24/19 19:48 Sputum Sputum Culture - Final 02/23/19 20:58 Blood Blood Culture Gram Stain - Preliminary 02/23/19 20:58 Blood Blood Culture - Preliminary Coagulase Negative Staph 02/23/19 20:58 Blood Blood Culture - Final Assessment and Plan (1) Hemoptysis Current Visit: Yes Status: Acute Code(s): R04.2 - HEMOPTYSIS SNOMED Code(s): 12647335 (2) Lung mass Current Visit: Yes Status: Acute Code(s): R91.8 - OTHER NONSPECIFIC ABNORMAL FINDING OF LUNG FIELD SNOMED Code(s): 437265683 (3) Coagulase negative Staphylococcus bacteremia Narrative/Plan: 58-year-old woman who has a history of chronic pain syndrome due to her severe spinal stenosis followed local pain clinic relates that she had a sudden onset of hemoptysis. She constantly sought care in hospital and images reveal evidence of a cavitary lesion in the right middle lobe. There is concern for metastatic disease to the left adrenal gland. Patient will undergo bronchoscopy tomorrow. At that point in time in addition to biopsies and cytology cultures including anaerobic and mycobacterial would be appreciated to further help with the treatment plans. Currently receiving Rocephin and clindamycin which is adequate if this is a cavitary abscess. The positive blood cultures coagulase negative staph in is likely contamination would not change current antibiotic therapy. 02/26/2019 patient feels better today. She is doing well on the current antib iotic therapy of Rocephin and clindamycin without GI upset or diarrhea. She had no further fevers or chills. Guided bronchoscopy will occur tomorrow which will we will then give answer to underlying etiology of the lesion whether it is carcinoma, lung abscess or a combination of both shall be determined. Continue current antibiotic therapy and monitor.no further positive blood cultures are noted Current Visit: Yes Status: Acute Code(s): R78.81 - BACTEREMIA SNOMED Code(s): 532148609021
[2019-02-27] MEDS: traMADol 50 MG TAB PO PRN ×3 (02:24→16:51)
[2019-02-27] MEDS: HYDROcodone/APAP 5-325MG 1 EACH TAB PO PRN ×3 (02:24→15:10)
[2019-02-27 07:13] LABS: Glucose,Whole Blood 121 mg/dL (75-99)
[2019-02-27 07:59] LABS: Calcium 9.5 mg/dL (8.4-10.2); Magnesium 1.3 mg/dL (1.6-2.3); Potassium 5.1 mmol/L (3.5-5.1)
[2019-02-27] MEDS: NICOTINE 21MG/24HR PATCH TRANSDERM SCH (08:39)
[2019-02-27] MEDS: CLINDAMYCIN 600 MG in DEXTROSE 5% IN WATER 50 ML IVPB SCH ×2 (08:39)
[2019-02-27] MEDS: LOSARTAN-HCTZ 50-12.5 MG 1 EACH TAB PO SCH (08:40)
[2019-02-27] MEDS: PREGABALIN 75 MG CAP PO SCH (08:40)
[2019-02-27] MEDS: SYMBICORT 160-4.5 MCG INHALER INHALATION PRN (08:56)
[2019-02-27] MEDS ORDERED: ONDANSETRON 4 MG/2 ML VIAL IVP PRN (09:40)
[2019-02-27] MEDS ORDERED: DEXTROSE 50% SYRINGE 50 ML IVP STA (10:00)
[2019-02-27 10:10] LABS: Glucose,Whole Blood 61 mg/dL (75-99)
[2019-02-27 10:38] LABS: Glucose,Whole Blood 179 mg/dL (75-99)
[2019-02-27] MEDS ORDERED: IV FLUID CONTINUATION 1,000 ML IV ONE (10:58)
--- NOTE | 2019-02-27 11:28 | P.PN ---
Subjective Progress Note Date: 02/27/19 Principal diagnosis: Hemoptysis, right midlung cavitary mass This is a very pleasant 58-year-old female patient who follows with Dr. Simmons as her primary care physician. She has a history of diabetes mellitus, hypertension, hyperlipidemia, gastroesophageal reflux disease, gout, arthritis. She also has chronic and ongoing tobacco dependence of 45 years. She presented here to the emergency room yesterday afternoon after having episodes of coughing up blood. She states that was in small amounts with some phlegm. No previous history of hemoptysis. Chest x-ray revealed a focal right lower lung consolidation versus mass with smaller areas of associated cavitation. Computed tomography scan of the chest revealed a right middle lobe cavitary mass measuring 4.1 x 2.0 cm. Suspect malignancy versus cavitary infiltrate. Abscess is not excluded. There is also suspected metastatic disease to the left adrenal gland with a mass measuring 2.0 x 2.6. White count 11.3. Hemoglobin 14.4. Creatinine 0.64. She has been initiated on DuoNeb inhalations, Symbicort, clindamycin and ceftriaxone. She is maintaining good O2 saturations in the 90s on room air. She's been afebrile. Hemodynamically stable. She is seen today in consultation on the oncology floor. Awake and alert in no acute distress. No worsening shortness of breath. Just scant amounts of blood-tinged sputum today. Reevaluated today on 02/25/2019, patient is doing better, breathing easier, presently on antibiotics, her hemoptysis is significantly improved. Denies any shortness of breath, no wheezing, no fever, no chills, no hemoptysis. O2 saturation is 94% on room air. Patient has a right middle lobe cavitary mass, the differential diagnoses includes squamous cell carcinoma or lung abscess. Patient will likely undergo bronchoscopy and transbronchial biopsy of the right middle lobe cavitary lesion by Dr. Patel she will remain nothing by mouth tonight. She is also aware of the risks and benefits of the procedure. On 02/26/2019 patient seen in follow-up on oncology floor. She is resting in bed, in no acute distress, no complaints of dyspnea, no hemoptysis today, no fever or chills, room air pulse ox is 92%, patient is afebrile. Sputum culture no growth, blood cultures have been negative with the exception of the culture from 02/23/2019 positive for coagulase-negative staph, likely contaminated. Today's blood work has been noted, unremarkable. No complaints of chest pain. A pneumatic coverage in the form of Rocephin and clindamycin The patient is seen today 02/27/2019 in follow-up on the oncology unit. She is currently awake and alert in no acute distress. No worsening shortness of breath, cough or congestion. No further evidence of hemoptysis. She is maintaining good O2 saturations in the 90s on room air. Afebrile. Hemodynamically stable. Follow-up blood cultures reveal no growth to date. Sputum culture reveals no growth. Glucose 179. She remains on DuoNeb inhalations, Symbicort, antibiotics in the form of ceftriaxone and clindamycin. Habitrol patch is in place. Objective - Vital Signs Vital signs: Vital Signs Temp 97.8 F 02/27/19 10:43 Pulse 93 02/27/19 10:43 Resp 18 02/27/19 10:43 BP 119/72 02/27/19 10:43 Pulse Ox 93 L 02/27/19 10:43 Intake & Output 02/26/19 02/27/19 02/27/19 18:59 06:59 18:59 Intake Total 100 960 Balance 100 960 Intake: Intake, IV Titration 100 Amount Magnesium Sulfate-D5w Pmx 100 1 gm In Dextrose/Water 1 100ml.bag @ 100 mls/hr IVPB Q1H [facility] Rx#: [id number] Oral 960 Other: Voiding Method Toilet Toilet # Voids 2 2 - Exam GENERAL EXAM: Alert, active, comfortable in no apparent distress. On room air. HEAD: Normocephalic. EYES: Normal reaction of pupils, equal size. NOSE: Clear with pink turbinates. THROAT: No erythema or exudates. NECK: No masses, no JVD. CHEST: No chest wall deformity. LUNGS: Equal air entry with few scattered rhonchi. Diminished CVS: S1 and S2 normal with no audible murmur, regular rhythm. ABDOMEN: No hepatosplenomegaly, normal bowel sounds, no guarding or rigidity. SPINE: No scoliosis or deformity SKIN: No rashes CENTRAL NERVOUS SYSTEM: No focal deficits, tone is normal in all 4 extremities. EXTREMITIES: There is no peripheral edema. No clubbing, no cyanosis. Peripheral pulses are intact. - Labs CBC & Chem 7: 02/26/19 07:34 02/27/19 06:33 Labs: Abnormal Lab Results - Last 24 Hours (Table) 02/26/19 02/26/19 02/27/19 Range/Units 17:04 20:05 06:33 Sodium 134 L (137-145) mmol/L BUN 22 H (7-17) mg/dL Glucose 103 H (74-99) mg/dL POC Glucose (mg/dL) 122 H 112 H (75-99) mg/dL Magnesium 1.3 L (1.6-2.3) mg/dL 02/27/19 02/27/19 02/27/19 Range/Units 07:01 09:53 10:37 Sodium (137-145) mmol/L BUN (7-17) mg/dL Glucose (74-99) mg/dL POC Glucose (mg/dL) 121 H 61 L 179 H (75-99) mg/dL Magnesium (1.6-2.3) mg/dL Microbiology - Last 24 Hours (Table) 02/23/19 20:58 Blood Culture Gram Stain - Final Blood Blood Culture - Final Staph hominis sub sp. hominis 02/24/19 18:57 Blood Culture - Preliminary Blood No Growth after 48 hours 02/24/19 18:49 Blood Culture - Preliminary Blood No Growth after 48 hours 02/24/19 19:48 Gram Stain - Final Sputum Sputum Culture - Final Assessment and Plan Assessment: Impression: #1 Hemoptysis secondary to a right middle lobe cavitary mass measuring 4.1 x 2.0 cm. Suspect malignancy versus cavitary infiltrate versus abscess. #2 Left adrenal mass measuring 2.0 x 2.6 cm, suspect metastasis. #3 Chronic and ongoing tobacco dependence of 45 years. #4 Diabetes mellitus. #5 Hypertension. #6 Hyperlipidemia. #7 History of gout. #8 Arthritis. #9 Gastroesophageal reflux disease. Plan: The patient was seen and evaluated by Dr. Patel. The plan is for navigational bronchoscopy with biopsies today. Continue the current treatment plan. We will continue to follow and make further recommendations based on her clinical status. I, the cosigning physician, performed a history & physical examination of the patient. Lungs sounds are clear, diminished. Maintaining good O2 saturations in the 90s on room air. I discussed the assessment and plan of care with my nurse practitioner, Laura Oneil. I attest to the above note as dictated by her.
[2019-02-27] MEDS ORDERED: Magnesium Replacement Protocol 1 EACH MISC MISCELLANE PRN (11:58)
[2019-02-27] MEDS ORDERED: MAGNESIUM SULFATE-D5W PMX 1 GM in DEXTROSE/WATER 1 100ML.BAG IVPB SCH (12:00)
[2019-02-27] MEDS ORDERED: PROPOFOL 10 MG/ML 20 ML VIAL IV ONE (12:02)
[2019-02-27] MEDS ORDERED: NEOSTIGMINE 1 MG/ML 10 ML VIAL ONE (12:02)
[2019-02-27] MEDS ORDERED: GLYCOPYRROLATE 0.2 MG/ML 2 ML VIAL ONE (12:02)
[2019-02-27] MEDS ORDERED: ROCURONIUM BROMIDE 10 MG/ML 10 ML VIAL IV ONE (12:02)
[2019-02-27] MEDS ORDERED: LIDOCAINE 1% INJ 10MG/ML (20 ML MDV) ONE (12:02)
[2019-02-27] MEDS ORDERED: SUCCINYLCHOLINE CHLORIDE 100 MG/5 ML SYR IV ONE (12:02)
[2019-02-27] MEDS ORDERED: MIDAZOLAM 2 MG/2 ML VIAL ONE (12:02)
[2019-02-27] MEDS ORDERED: fentaNYL (PF) 50 MCG/ML 2 ML AMP ONE (12:02)
[2019-02-27 12:05] LABS: Glucose,Whole Blood 119 mg/dL (75-99)
--- NOTE | 2019-02-27 13:46 | CT ---
EXAMINATION TYPE: CT Chest re[facility] Protocol DATE OF EXAM: 02/27/2019 COMPARISON: 02/23/2019 HISTORY: 58-year-old female Lung mass, hemoptysis TECHNIQUE: Contiguous axial scanning of the chest without IV contrast. Coronal and sagittal reconstru ctions performed. Both inspiratory and expiratory imaging was performed for surgical navigational pur poses. CT DLP: 493 mGycm Automated exposure control for dose reduction was used. FINDINGS: Heart upper limits of normal in size. Trace pericardial fluid. Mild coronary vessel calcifications. Ectatic ascending aorta 3.9 cm. Mild atherosclerotic arch calcifications. Conventional] anatomy. Scattered nonenlarged mediastinal lymph nodes measuring up to 8 mm precarinal region and 1.4 cm subca rinal region. Mild emphysema with biapical pleural-parenchymal scarring. Nonspecific 4 mm left upper lobe pulmonary nodule axial image 15 series 6. Masslike cavitary consolidation right middle lobe redemonstrated with some slight fluctuance in size, approximately 5.2 x 4.0 cm. There may be some new adjacent atelectasis or pneumonitis. No pleural ef fusion. Visualized upper abdomen shows no gross abnormal. Bones: Spinal stabilization levi on the left lung the lower thoracic spine. Underlying reverse S-shape d scoliosis. IMPRESSION: IMAGING FOR BRONCHIAL NAVIGATION PURPOSES. KNOWN CAVITARY MASSLIKE CONSOLIDATION IN THE RIGHT MIDDLE LOBE. COPD WITH MILD EMPHYSEMA. 4 MM LEFT UPPER LOBE PULMONARY NODULE WHICH IS NONSPECIFIC AND CAN BE FOLLOWED.
[2019-02-27 14:17] VITALS: BP 121/84; PULSE 88; RESP 18; TEMP 97.5
[2019-02-27] MEDS: PIOGLITAZONE 15 MG TAB PO SCH (14:47)
[2019-02-27] MEDS: metFORMIN 500 MG TAB PO SCH (14:48)
[2019-02-27] MEDS: ALLOPURINOL 100 MG TAB PO SCH (14:48)
[2019-02-27] MEDS: LINAGLIPTIN 5 MG TABLET PO SCH (14:48)
[2019-02-27] MEDS: GLIMEPIRIDE 4 MG TAB PO SCH (14:48)
[2019-02-27] MEDS: PANTOPRAZOLE 40 MG TABLET PO SCH (14:48)
[2019-02-27] MEDS: FENOFIBRATE 160 MG TAB PO SCH (14:48)
[2019-02-27 16:55] LABS: Appearance,BF Cloudy; Color,BF Colorless; Nucleated Cells, Body Fluid 480 /uL; RBC, Body Fluid 140 /uL
[2019-02-27 16:58] LABS: Mononuclear WBC,Body Fluid 8 %; Polynuclear WBC,Body Fluid 92 %; Total Cells Counted,Body Fluid 100
--- NOTE | 2019-02-27 18:12 | PCN ---
PROCEDURE NOTE PROCEDURE PERFORMED: Electromagnetic navigational bronchoscopy. OPERATORS: Dr. Patel and Dr. Oneil. PREOP DIAGNOSIS: Lung abscess versus lung cancer. POSTOP DIAGNOSIS: Lung abscess versus lung cancer. DESCRIPTION OF PROCEDURE: We used the variant electromagnetic navigational system. There was informed consent. There was universal timeout. I did speak to the patient prior to the procedure. After the patient was adequately sedated and anesthetized and connected to the anesthetic machine via the endotracheal tube, the bronchoscope was inserted through the bronchoscope adapter. Under the guidance of the [place] system, we were able to do needle biopsies in the right middle lobe. In addition, we did brushes and washes in the right middle lobe. Finally, we did transbronchial biopsies in the right middle lobe. Finally, we did a protective brush in the right middle lobe for anaerobic cultures. The patient tolerated the procedure well. There was minimal bleeding. A chest x-ray will be done to rule out pneumothorax. The patient will be recovered. I did speak to the patient's . Probably we will not have any final results until Tuesday. Pathology was in the room with us. Dr. Levine did see abnormal cells, but was not willing to make a firm diagnosis. He thought it might be consistent with non-small cell lung cancer. Additional recommendations and suggestions are forthcoming. The patient tolerated the procedure well. MMODL / IJN: [id number] /
--- NOTE | 2019-02-28 06:01 | DS ---
DISCHARGE SUMMARY DATE OF ADMISSION: 02/23/2019 DATE OF DISCHARGE: 02/27/2019 FINAL DIAGNOSES: 1. Right middle lobe mass suspicious for non-small cell lung cancer, presenting with hemoptysis. 2. Obesity; body mass index 37.9. 3. Blood culture, felt to be positive with a contaminant. 4. Chronic obstructive pulmonary disease in a current smoker. 5. Diabetes mellitus type 2 on oral hypoglycemic. 6. Essential hypertension. 7. Hyperlipidemia. 8. Primary osteoarthritis in multiple joints. 9. Chronic low back pain from arthritis. 10.Chronic nicotine dependence. Patient is a cigarette smoker. CONSULTATION: Dr. Berrios from Infectious Disease; Dr. Patel from Pulmonary. HOSPITAL COURSE: This patient who is a long-standing smoker presented hemoptysis. CT scan did show a cavitating mass. Bronchoscopy was done and the initial diagnosis was thought not confirmed, felt to be non-small cell lung cancer. The patient was not felt to have any abscess. I did discuss this with Dr. Berrios today and the patient has had no fever, white count. Not bringing up any sputum. Also the results were discussed with Gladys from Pulmonary group. The patient is to follow up with Dr. Patel in the outpatient setting. Antibiotics have been discontinued. Discussion and discharge planning more than 35 minutes. On examination, temperature 97.5, pulse 88, respirations 18, blood pressure 121/84, pulse ox 91% on room air. LUNGS: Fair entry. CARDIOVASCULAR: First and second sounds normal. INVESTIGATIONS: Accu-Cheks are noted. DISCHARGE MEDICATIONS: 1. Flexeril 10 mg q.h.s. 2. Ultram 50 mg p.o. q.6 p.r.n. 3. Prilosec 20 mg p.o. daily. 4. Allopurinol 100 mg p.o. daily. 5. Lipitor 80 mg q.h.s. 6. Vitamin D2, 50,000 units p.o. on Tuesday. 7. Tricor 160 mg p.o. daily. 8. Amaryl 8 mg p.o. daily. 9. Glucophage 1000 mg p.o. b.i.d. 10.Alogliptin 25 mg p.o. daily. 11.Losartan/hydrochlorothiazide 100/25 one tablet p.o. daily. 12.Requip 0.25 mg p.o. q.h.s. 13.Ventolin HFA 2 puffs q.6 p.r.n. 14.Symbicort 160/4.5 two puffs b.i.d. 15.Actos 15 mg p.o. daily. 16.Lyrica 75 mg b.i.d. 17.Atrovent HFA 2 puffs q.i.d. 18.Nicotine patch. Follow up with Dr. Patel on 03/09/2019. Follow up with Dr. Simmons on 03/06/2019. MMODL / IJN: [id number] /
--- NOTE | 2019-03-01 11:50 | CDI ---
Documentation Clarification Form Date: 03/01/2019 10:43:00 AM From: Vivien Monson Cynthia Santamaria, [employer] Installer Hours-8:30 am & 5 pm M-F Admit Date: 02/23/2019 8:18:00 PM Patient Name: Aundrea Bustillo Visit Number: [id number] Discharge Date: 02/27/2019 6:05:00 PM ATTENTION: The Clinical Documentation Specialists (CDI) and [facility] Coding Staff appreciate your assistance in clarifying documentation. Please respond to the clarification below the line at the bottom and electronically sign. The CDI & [facility] Coding staff will review the response and follow-up if needed. Please note: Queries are made part of the Legal Health Record. If you have any questions, please contact the author of this message via ITS. Dr. Corey Tai The final diagnosis of the pathology report states: Chronic Bronchitis/ Atypical Squamous Metaplasia- Features of diagnostic malignancy are not seen. Documentation states: Right Middle Lobe Mass suspicious for non-small cell lung cancer Clinical Indicators: hemoptysis In your professional opinion, do you agree with the pathology report specifying metaplasia as non malignant? Yes No Other (please specify) Unable to determine Only pathologist can confirm this RP MTDD
== END 2019-02-27 18:05 | disposition home or self-care (01) | DRG 191 ==
LOC: EC 19:20 → 3NMEDONC 20:18
PROVIDERS: ADMIT Hospitalist; ATTEND Hospitalist
PROC: 0B9D8ZX Drainage of Right Middle Lung Lobe, Via Natural or Artificial Opening Endoscopic, Diagnostic (ICD-10-PCS; principal; 2019-02-27 12:00)
PROC: 0BD58ZX Extraction of Right Middle Lobe Bronchus, Via Natural or Artificial Opening Endoscopic, Diagnostic (ICD-10-PCS; 2019-02-27 12:00)
PROC: 0BDD8ZX Extraction of Right Middle Lung Lobe, Via Natural or Artificial Opening Endoscopic, Diagnostic (ICD-10-PCS; 2019-02-27 12:00)
DX: J44.1 Chronic obstructive pulmonary disease with (acute) exacerbation (principal); R04.2 Hemoptysis; J98.4 Other disorders of lung; I10 Essential (primary) hypertension; E78.5 Hyperlipidemia, unspecified; E11.9 Type 2 diabetes mellitus without complications; R00.0 Tachycardia, unspecified; E27.9 Disorder of adrenal gland, unspecified; F17.210 Nicotine dependence, cigarettes, uncomplicated; K21.9 Gastro-esophageal reflux disease without esophagitis; M10.9 Gout, unspecified; H40.9 Unspecified glaucoma; G89.4 Chronic pain syndrome; M48.00 Spinal stenosis, site unspecified; M19.91 Primary osteoarthritis, unspecified site; Z68.37 Body mass index [BMI] 37.0-37.9, adult; E66.9 Obesity, unspecified; Z79.899 Other long term (current) drug therapy; Z79.84 Long term (current) use of oral hypoglycemic drugs; Z79.51 Long term (current) use of inhaled steroids; Z90.49 Acquired absence of other specified parts of digestive tract; Z98.51 Tubal ligation status; Z88.5 Allergy status to narcotic agent; Z83.3 Family history of diabetes mellitus; Z80.9 Family history of malignant neoplasm, unspecified
CPT/HCPCS: 31623; 31624; 31627; 31629; 36415; 71046; 71250; 71260; 80048; 80053; 83735; 84484; 85025; 85610; 85730; 87040; 87070; 87077; 87102; 87116; 87186; 87205; 87206; 87252; 87496; 87498; 87502; 87529; 87634; 87798; 88104; 88108; 88173; 88305; 89050; 93005; 94640; 94760; 96361; 96374; 99285

== ENCOUNTER → 2019-04-23 | Outpatient (CLI) | payer OTHER ==
--- NOTE | 2019-04-23 14:07 | MM ---
Reason for exam: follow-up at short interval from prior study. Last mammogram was performed 8 months ago. History: Patient is postmenopausal. Core biopsy of the left breast. Physical Findings: Nurse did not find any significant physical abnormalities on exam. MG Diagnostic Mammo LT w CAD CC and MLO view(s) were taken of the left breast. Prior study comparison: August 29, 2018, left breast MG work up mamm w CAD LT. August 15, 2018, bilateral MG screening mammo w CAD. The breast tissue is heterogeneously dense. This may lower the sensitivity of mammography. Grouped calcifications 4 o'clock posteriorly unchanged for 6 months. Additional 6 month follow up recommended. These results were verbally communicated with the patient and result sheet given to the patient on 04/23/19. ASSESSMENT: Probably benign, BI-RAD 3 RECOMMENDATION: Follow-up diagnostic mammogram of both breasts in 6 months.
== END | disposition home or self-care (01) ==
LOC: RADMAMWWP 12:38
PROVIDERS: ATTEND Family Medicine
DX: N64.89 Other specified disorders of breast (principal)
CPT/HCPCS: 77065

== ENCOUNTER → 2019-04-24 | Outpatient (CLI) | payer OTHER ==
[2019-04-24 13:28] LABS: African American GFR (CKD) >90 (>60 ml/min/1.73 sqM); Blood Urea Nitrogen 15 mg/dL (7-17)
--- NOTE | 2019-04-24 14:31 | CT ---
EXAMINATION TYPE: CT chest w con DATE OF EXAM: 04/24/2019 COMPARISON: CT chest 02/23/2019 HISTORY: Abscess of lung without pneumonia CT DLP: 463.3 mGycm Automated exposure control for dose reduction was used. CONTRAST: CT scan of the chest is performed with IV Contrast, patient injected with 100 mL of Isovue 300. FINDINGS: LUNGS: The lungs are remarkable for interval healing of lung abscess in the right middle lobe, only m inimal residual scarring is noted, there is no concerning parenchymal mass or nodule identified. Th ere is no pleural effusion or pneumothorax seen. The tracheobronchial tree is patent. MEDIASTINUM: There are no greater than 1 cm hilar or mediastinal lymph nodes. No pericardial effusi on is seen. AORTA: No additional significant abnormality is seen. OTHER: Underlying scoliosis and postop changes again noted. Low dense left adrenal mass is stable. L iver shows low attenuation possibly due to hepatic steatosis. Gallbladder is absent. Liver at the upp er limit of normal for size IMPRESSION: Interval healing of patient's lung abscess. Additional findings above.
== END | disposition home or self-care (01) ==
LOC: RADCTMAIN 12:47
PROVIDERS: ATTEND Internal Medicine Critical Care Medicine
DX: J85.2 Abscess of lung without pneumonia (principal); J98.4 Other disorders of lung; Z91.048 Other nonmedicinal substance allergy status
CPT/HCPCS: 71260; 82565; 84520

== ENCOUNTER 2019-07-18 08:47 | Day surgery (SDC) | payer OTHER ==
[2019-07-17 08:59] VITALS: BMI 36.9
--- NOTE | 2019-07-18 07:59 | P.GSHP ---
History of Present Illness H&P Date: 07/18/19 CHIEF COMPLAINT: Colon screen HISTORY OF PRESENT ILLNESS: The patient is a 58-year-old female who presents for colon screen. Lower endoscopy was offered for further evaluation and management. PAST MEDICAL HISTORY: Please see list. PAST SURGICAL HISTORY: Please see list. MEDICATIONS: Please see list. ALLERGIES: Please see list. SOCIAL HISTORY: No illicit drug use FAMILY HISTORY: No reports of Crohn disease or ulcerative colitis. REVIEW OF ORGAN SYSTEMS: CONSTITUTIONAL: No reports of fevers or chills. PHYSICAL EXAM: VITAL SIGNS: Stable GENERAL: Well-developed pleasant in no acute distress. HEENT: No scleral icterus. Extraocular movements grossly intact. Moist buccal mucosa. NECK: Supple without lymphadenopathy. CHEST: Unlabored respirations. Equal bilateral excursions. CARDIOVASCULAR: Regular rate and rhythm. Distal 2+ pulses. ABDOMEN: Soft, nontender, nondistended. MUSCULOSKELETAL: No clubbing, cyanosis, or edema. ASSESSMENT: 1. Colon screen. PLAN: 1. Recommend proceeding with a lower endoscopy Past Medical History Past Medical History: COPD, Diabetes Mellitus, Eye Disorder, GERD/Reflux, Hyperlipidemia, Hypertension, Osteoarthritis (OA) Additional Past Medical History / Comment(s): Start of glaucoma. "Knees have been giving out." DDD. Stage 1 Emphysema, gout, lower back and left hip pain History of Any Multi-Drug Resistant Organisms: None Reported Past Surgical History: Back Surgery, Section, Cholecystectomy, Tubal Ligation Additional Past Surgical History / Comment(s): MARBIN PLACED FOR SCOLIOSIS as child. mult left breast biopsy, Past Anesthesia/Blood Transfusion Reactions: No Reported Reaction Smoking Status: Current every day smoker - Past Family History Brother(s) Family Medical History: Diabetes Mellitus Mother Family Medical History: Cancer Father Family Medical History: Cancer Medications and Allergies Home Medications Medication Instructions Recorded Confirmed Type Cyclobenzaprine [Flexeril] 10 mg PO HS 07/11/14 07/17/19 History traMADol HCl [Ultram] 50 mg PO Q6H PRN 07/11/14 07/17/19 History Omeprazole [PriLOSEC] 20 mg PO DAILY 08/05/14 07/17/19 History Allopurinol 100 mg PO DAILY 05/27/16 07/17/19 History Atorvastatin [Lipitor] 80 mg PO HS 05/27/16 07/17/19 History Ergocalciferol (Vitamin D2) 50,000 unit PO MO 05/27/16 07/17/19 History [Drisdol] Fenofibrate 160 mg PO DAILY 05/27/16 07/17/19 History Glimepiride [Amaryl] 8 mg PO DAILY 06/28/17 07/17/19 History metFORMIN HCL [Glucophage] 1,000 mg PO BID 06/28/17 07/17/19 History Alogliptin Benzoate [Alogliptin] 25 mg PO DAILY 06/02/18 07/17/19 History Losartan/Hydrochlorothiazide 1 tab PO DAILY 06/02/18 07/17/19 History [Losartan-Hctz 100-25 mg Tab] rOPINIRole HCL [Requip] 0.25 mg PO HS 06/02/18 07/17/19 History Albuterol Inhaler [Ventolin Hfa 2 puff INHALATION Q6HR PRN 02/23/19 07/17/19 History Inhaler] Budesonide-Formot 160-4.5 Mcg 2 puff INHALATION BID PRN 02/23/19 07/17/19 History [Symbicort 160-4.5 Mcg Inhaler] Pioglitazone HCl 15 mg PO DAILY 02/23/19 07/17/19 History Pregabalin [Lyrica] 150 mg PO BID 02/23/19 07/17/19 History Ipratropium [place] [Atrovent Hfa] 2 puff INHALATION QID #1 inhaler 02/27/19 07/17/19 Rx Magnesium 400 mg PO DAILY 06/14/19 07/17/19 History Allergies Allergy/AdvReac Type Severity Reaction Status Date / Time acetaminophen Allergy Abdominal Verified 07/17/19 08:48 [From Tylenol-Codeine #3] Pain codeine AdvReac Severe Abdominal Verified 07/17/19 08:47 Pain
[~2019-07-18 08:47] MED LIST: LACTATED RINGERS 1,000 ML IV SCH; LIDOCAINE 1% 20 ML VIAL (10MG/ML) FOR IV START INTRADERMA PRN
[2019-07-18 09:31] VITALS: TEMP 98.1
[2019-07-18 09:35] LABS: Glucose,Whole Blood 118 mg/dL (75-99)
[2019-07-18] MEDS ORDERED: PROPOFOL 10 MG/ML 20 ML VIAL IV ONE (09:49)
--- NOTE | 2019-07-18 10:29 | P.PCN ---
Date of Procedure: 07/18/19 Description of Procedure: PREOPERATIVE DIAGNOSIS: Colonoscopy screening, first POSTOPERATIVE DIAGNOSIS: Colonoscopy screening, first Multiple tubular adenomas throughout the colon. External hemorrhoids, grade 2 Sigmoid diverticulosis with diverticulitis OPERATION: Colonoscopy to the ileocecal valve and appendiceal orifice. Colonoscopy with multiple hot snare polypectomies SURGEON: Anjali Villatoro MD. ANESTHESIA: MAC. INDICATIONS: The patient is a 58-year-old female who presents for her first colonoscopy screening. Benefits and risks were described and informed consent was obtained. DESCRIPTION OF PROCEDURE: The patient had undergone Suprep. She had been brought into the operating room a nd laid in the left lateral decubitus position. After adequate intravenous sedation, the rectum was examined with 2% lidocaine jelly. External hemorrhoids were encountered. The rectal tone was within normal limits. No lesions were palpated in the rectal vault. An Olympus colonoscope was advanced until the ileocecal valve and appendiceal orifice were clearly viewed. The prep was fair with visualization of the mucosal folds. The scope was removed with visualization of each mucosal fold. Moderate sigmoid diverticulosis with diverticulitis was encountered. Multiple colonic polyps were found and cold forcep biopsy or snare polypectomy. Retroflexion of the scope demonstrated grade 1 internal hemorrhoids without active bleeding or inflammation. The colon was desufflated. The patient had tolerated the procedure well. Withdrawal time was over 6 minutes. FINDINGS: Aronchick preparation quality scale 2 (1-5) Internal hemorrhoids, grade 1 External hemorrhoids, grade 2. No arteriovenous malformations. Moderate sigmoid diverticulosis with mild diverticulitis Removal of 4 polyps: - Snare polypectomy at appendiceal orifice, 6 mm tubulovillous adenoma polyp. - Snare polypectomy at hepatic flexure, 8 mm flat villous adenoma polyp. - Snare polypectomy 15 cm from the anal verge, 5 mm flat villous adenoma polyp, sigmoid colon - Snare polypectomy 5 cm from the anal verge, 5 mm flat villous adenoma polyp, rectum RECOMMENDATIONS: Given severity of tubular adenomas, recommend repeat colonoscopy 2 years, 2020. Plan - Discharge Summary Discharge Rx Participant: No New Discharge Prescriptions: No Action Cyclobenzaprine [Flexeril] 10 mg PO HS traMADol HCl [Ultram] 50 mg PO Q6H PRN PRN Reason: Pain Omeprazole [PriLOSEC] 20 mg PO DAILY Ergocalciferol (Vitamin D2) [Drisdol] 50,000 unit PO MO Fenofibrate 160 mg PO DAILY Atorvastatin [Lipitor] 80 mg PO HS Allopurinol 100 mg PO DAILY Glimepiride [Amaryl] 8 mg PO DAILY metFORMIN HCL [Glucophage] 1,000 mg PO BID Alogliptin Benzoate [Alogliptin] 25 mg PO DAILY Losartan/Hydrochlorothiazide [Losartan-Hctz 100-25 mg Tab] 1 tab PO DAILY rOPINIRole HCL [Requip] 0.25 mg PO HS Budesonide-Formot 160-4.5 Mcg [Symbicort 160-4.5 Mcg Inhaler] 2 puff INHALATION BID PRN PRN Reason: sob Albuterol Inhaler [Ventolin Hfa Inhaler] 2 puff INHALATION Q6HR PRN PRN Reason: Shortness Of Breath Pregabalin [Lyrica] 150 mg PO BID Pioglitazone HCl 15 mg PO DAILY Ipratropium [place] [Atrovent Hfa] 2 puff INHALATION QID #1 inhaler Magnesium 400 mg PO DAILY Discharge Medication List Cyclobenzaprine [Flexeril] 10 mg PO HS 07/11/14 [History] traMADol HCl [Ultram] 50 mg PO Q6H PRN 07/11/14 [History] Omeprazole [PriLOSEC] 20 mg PO DAILY 08/05/14 [History] Allopurinol 100 mg PO DAILY 05/27/16 [History] Atorvastatin [Lipitor] 80 mg PO HS 05/27/16 [History] Ergocalciferol (Vitamin D2) [Drisdol] 50,000 unit PO MO 05/27/16 [History] Fenofibrate 160 mg PO DAILY 05/27/16 [History] Glimepiride [Amaryl] 8 mg PO DAILY 06/28/17 [History] metFORMIN HCL [Glucophage] 1,000 mg PO BID 06/28/17 [History] Alogliptin Benzoate [Alogliptin] 25 mg PO DAILY 06/02/18 [History] Losartan/Hydrochlorothiazide [Losartan-Hctz 100-25 mg Tab] 1 tab PO DAILY 06/02/18 [History] rOPINIRole HCL [Requip] 0.25 mg PO HS 06/02/18 [History] Albuterol Inhaler [Ventolin Hfa Inhaler] 2 puff INHALATION Q6HR PRN 02/23/19 [History] Budesonide-Formot 160-4.5 Mcg [Symbicort 160-4.5 Mcg Inhaler] 2 puff INHALATION BID PRN 02/23/19 [History] Pioglitazone HCl 15 mg PO DAILY 02/23/19 [History] Pregabalin [Lyrica] 150 mg PO BID 02/23/19 [History] Ipratropium [place] [Atrovent Hfa] 2 puff INHALATION QID #1 inhaler 02/27/19 [Rx] Magnesium 400 mg PO DAILY 06/14/19 [History] Follow up Appointment(s)/Referral(s): Anjali Villatoro MD [STAFF PHYSICIAN] - As Needed Patient Instructions/Handouts: Colorectal Polyps (DC), Diverticulosis Diet (GEN), Diverticulosis (GEN) Activity/Diet/Wound Care/Special Instructions: Repeat colonoscopy in 3 years, 2021 Discharge Disposition: HOME SELF-CARE
[2019-07-18 10:30] VITALS: RESP 18
[2019-07-18 10:52] VITALS: BP 127/76; PULSE 88
== END 2019-07-18 11:05 | disposition home or self-care (01) ==
LOC: ORWHC2ENDO 08:47
PROVIDERS: ATTEND Surgery Plastic and Reconstructive Surgery
DX: Z12.11 Encounter for screening for malignant neoplasm of colon (principal); D12.0 Benign neoplasm of cecum; D12.3 Benign neoplasm of transverse colon; D12.6 Benign neoplasm of colon, unspecified; K62.1 Rectal polyp; K57.32 Diverticulitis of large intestine without perforation or abscess without bleeding; K64.4 Residual hemorrhoidal skin tags; K64.0 First degree hemorrhoids; K52.9 Noninfective gastroenteritis and colitis, unspecified; I10 Essential (primary) hypertension; J44.9 Chronic obstructive pulmonary disease, unspecified; E11.9 Type 2 diabetes mellitus without complications; K21.9 Gastro-esophageal reflux disease without esophagitis; E78.5 Hyperlipidemia, unspecified; M19.90 Unspecified osteoarthritis, unspecified site; M10.9 Gout, unspecified; H40.9 Unspecified glaucoma; F17.200 Nicotine dependence, unspecified, uncomplicated; Z79.84 Long term (current) use of oral hypoglycemic drugs; Z79.899 Other long term (current) drug therapy; Z88.5 Allergy status to narcotic agent; Z88.6 Allergy status to analgesic agent; Z87.09 Personal history of other diseases of the respiratory system; Z90.49 Acquired absence of other specified parts of digestive tract; Z98.51 Tubal ligation status; Z98.890 Other specified postprocedural states; Z87.39 Personal history of other diseases of the musculoskeletal system and connective tissue; Z83.3 Family history of diabetes mellitus; Z80.9 Family history of malignant neoplasm, unspecified; Z79.51 Long term (current) use of inhaled steroids
CPT/HCPCS: 88305; 45385; J2704

== ENCOUNTER 2019-07-27 21:58 | Emergency (ER) | payer OTHER ==
[2019-07-27 22:03] VITALS: BP 96/63; PULSE 109; RESP 18; TEMP 97.8
[2019-07-27] MEDS ORDERED: ONDANSETRON ODT 4 MG TAB PO STA (22:15)
--- NOTE | 2019-07-27 22:19 | ED ---
General Adult HPI - General Chief complaint: Overdose Stated complaint: Accidental Overdose Time Seen by Provider: 07/27/19 22:00 Source: patient Mode of arrival: ambulatory Limitations: no limitations - History of Present Illness Initial comments: The patient is a 58-year-old female presents to the emergency department with reported overdose. The patient states that there was some confusion at home and she accidentally took 2 of her atorvastatin's. She does take 80 mg every day. States that the ingestion was just prior to arrival. She was concerned that she may have side effects and therefore presented to the emergency room for evaluation. She is asymptomatic at this time. Denies any muscle aches, chest pain, shortness of breath, vomiting. She does report mild nausea. She did not take any medications for her symptoms and presented immediately to the emergency room for evaluation. She did not take any additional of her other medications. There are no other alleviating, precipitating or modifying factors - Related Data Home Medications Medication Instructions Recorded Confirmed Cyclobenzaprine [Flexeril] 10 mg PO HS 07/11/14 07/27/19 traMADol HCl [Ultram] 50 mg PO Q6H PRN 07/11/14 07/27/19 Omeprazole [PriLOSEC] 20 mg PO DAILY 08/05/14 07/27/19 Allopurinol 100 mg PO DAILY 05/27/16 07/27/19 Atorvastatin [Lipitor] 80 mg PO HS 05/27/16 07/27/19 Ergocalciferol (Vitamin D2) 50,000 unit PO MO 05/27/16 07/27/19 [Drisdol] Fenofibrate 160 mg PO DAILY 05/27/16 07/27/19 Glimepiride [Amaryl] 8 mg PO DAILY 06/28/17 07/27/19 metFORMIN HCL [Glucophage] 1,000 mg PO BID 06/28/17 07/27/19 Alogliptin Benzoate [Alogliptin] 25 mg PO DAILY 06/02/18 07/27/19 Losartan/Hydrochlorothiazide 1 tab PO DAILY 06/02/18 07/27/19 [Losartan-Hctz 100-25 mg Tab] rOPINIRole HCL [Requip] 0.25 mg PO HS 06/02/18 07/27/19 Albuterol Inhaler [Ventolin Hfa 2 puff INHALATION RT-Q6H PRN 02/23/19 07/27/19 Inhaler] Budesonide-Formot 160-4.5 Mcg 2 puff INHALATION RT-BID PRN 02/23/19 07/27/19 [Symbicort 160-4.5 Mcg Inhaler] Pioglitazone HCl 15 mg PO DAILY 02/23/19 07/27/19 Pregabalin [Lyrica] 150 mg PO BID 02/23/19 07/27/19 Magnesium 400 mg PO DAILY 06/14/19 07/27/19 Ipratropium [place] [Atrovent Hfa] 2 puff INHALATION RT-QID 07/27/19 07/27/19 Allergies Allergy/AdvReac Type Severity Reaction Status Date / Time codeine AdvReac Severe Abdominal Verified 07/27/19 22:32 Pain acetaminophen AdvReac Abdominal Verified 07/27/19 22:32 [From Tylenol-Codeine #3] Pain Review of Systems ROS Statement: Those systems with pertinent positive or pertinent negative responses have been documented in the HPI. ROS Other: All systems not noted in ROS Statement are negative. Past Medical History Past Medical History: COPD, Diabetes Mellitus, Eye Disorder, GERD/Reflux, Hyperlipidemia, Hypertension, Osteoarthritis (OA) Additional Past Medical History / Comment(s): Start of glaucoma. "Knees have been giving out." DDD. Stage 1 Emphysema, gout, lower back and left hip pain, History of Any Multi-Drug Resistant Organisms: None Reported Past Surgical History: Back Surgery, Section, Cholecystectomy, Tubal Ligation Additional Past Surgical History / Comment(s): MARBIN PLACED FOR SCOLIOSIS as child. mult left breast biopsy, Past Anesthesia/Blood Transfusion Reactions: No Reported Reaction Past Psychological History: No Psychological Hx Reported Smoking Status: Current every day smoker Past Alcohol Use History: None Reported Past Drug Use History: None Reported - Past Family History Brother(s) Family Medical History: Diabetes Mellitus Mother Family Medical History: Cancer Father Family Medical History: Cancer General Exam Limitations: no limitations General appearance: alert, in no apparent distress Head exam: Present: atraumatic, normocephalic, normal inspection Eye exam: Present: normal appearance, PERRL, EOMI. Absent: scleral icterus, conjunctival injection, periorbital swelling ENT exam: Present: normal exam, mucous membranes moist Neck exam: Present: normal inspection. Absent: tenderness, meningismus, lymphadenopathy Respiratory exam: Present: normal lung sounds bilaterally. Absent: respiratory distress, wheezes, rales, rhonchi, stridor Cardiovascular Exam: Present: regular rate, normal rhythm, normal heart sounds. Absent: systolic murmur, diastolic murmur, rubs, gallop, clicks GI/Abdominal exam: Present: soft, normal bowel sounds. Absent: distended, tenderness, guarding, rebound, rigid Extremities exam: Present: normal inspection, full ROM, normal capillary refill. Absent: tenderness, pedal edema, joint swelling, calf tenderness Back exam: Present: normal inspection Neurological exam: Present: alert, oriented X3, CN II-XII intact Psychiatric exam: Present: normal affect, normal mood Skin exam: Present: warm, dry, intact, normal color. Absent: rash Course Vital Signs 07/27/19 21:59 Temperature 97.8 F Pulse Rate 109 H Respiratory 18 Rate Blood Pressure 96/63 O2 Sat by Pulse 95 Oximetry Medical Decision Making - Medical Decision Making Upon arrival the patient is placed in room 5. She is hooked up to continuous pulse ox and cardiac monitoring. After history and physical exam was performed. The patient is having mild nausea I did provide her with 4 mg of Zofran ODT. The patient will be discharged at this time. She is to follow-up with her [facility] physician. She may resume taking her normal medications as directed. If she has any new or worsening symptoms she should return to the emergency room. The patient was discharged home in stable condition Disposition Clinical Impression: Accidental drug overdose Disposition: HOME SELF-CARE Condition: Stable Instructions (If sedation given, give patient instructions): Normal Exam (ED) Additional Instructions: Please follow-up with your primary care physician within 2-4 days. Return to the emergency room for any new or worsening symptoms Is patient prescribed a controlled substance at d/c from ED?: No Referrals: Shun Simmons DO [Primary Care Provider] - 1-2 days Time of Disposition: 22:19
== END 2019-07-27 22:41 | disposition home or self-care (01) ==
LOC: EC 21:58
DX: T46.6X1A Poisoning by antihyperlipidemic and antiarteriosclerotic drugs, accidental (unintentional), initial encounter (principal); J43.9 Emphysema, unspecified; E11.9 Type 2 diabetes mellitus without complications; K21.9 Gastro-esophageal reflux disease without esophagitis; E78.5 Hyperlipidemia, unspecified; I10 Essential (primary) hypertension; M10.9 Gout, unspecified; F17.200 Nicotine dependence, unspecified, uncomplicated; Z88.5 Allergy status to narcotic agent; Z88.6 Allergy status to analgesic agent; Z79.84 Long term (current) use of oral hypoglycemic drugs; Z79.899 Other long term (current) drug therapy
CPT/HCPCS: 99283

== ENCOUNTER → 2019-12-25 | Outpatient (CLI) | payer OTHER ==
--- NOTE | 2019-12-25 14:07 | XR ---
EXAMINATION TYPE: XR shoulder complete RT DATE OF EXAM: 12/25/2019 COMPARISON: NONE HISTORY: 59-year-old female with right shoulder pain TECHNIQUE: 3 views FINDINGS: Mild marginal spurring at the AC joint. Subacromial space is preserved. No tendinous or bursal calcif ications. No acute fracture, subluxation, or dislocation. IMPRESSION: There may be mild degenerative change at the AC joint. No acute osseous abnormality seen.
== END ==
LOC: RADXRMAIN 12:05
PROVIDERS: ATTEND Family Medicine
DX: M25.511 Pain in right shoulder (principal)

== ENCOUNTER → 2021-04-17 | Outpatient (CLI) | payer OTHER ==
--- NOTE | 2021-04-23 10:45 | MM ---
Reason for exam: additional evaluation requested from prior study. Last mammogram was performed 2 years ago. History: Patient is postmenopausal. Core biopsy of the left breast. Physical Findings: Nurse did not find any significant physical abnormalities on exam. MG Diagnostic Mammo w CAD AGUILA Bilateral CC, MLO, and XCCL view(s) were taken. CC with magnification and ML with magnification view(s) were taken of the right breast. Prior study comparison: April 23, 2019, left breast MG diagnostic mammo LT w CAD. January 11, 2019, right breast US breast RT. August 29, 2018, left breast MG work up mamm w CAD LT. August 15, 2018, bilateral MG screening mammo w CAD. June 02, 2017, bilateral MG screening mammo w CAD. The breast tissue is heterogeneously dense. This may lower the sensitivity of mammography. Regional and scattered punctate calcifications redemonstrated. Benign vascular calcifications. A small group of tiny punctate calcifications 6 o'clock position appear new but are probably benign. These results were verbally communicated with the patient and result sheet given to the patient on 04/17/21. ASSESSMENT: Probably benign, BI-RAD 3 RECOMMENDATION: Follow-up diagnostic mammogram of the right breast in 6 months.
== END | disposition home or self-care (01) ==
LOC: RADMAMWWP 10:48
PROVIDERS: ATTEND Family Medicine
DX: R92.2 Inconclusive mammogram (principal); R92.1 Mammographic calcification found on diagnostic imaging of breast; Z78.0 Asymptomatic menopausal state
CPT/HCPCS: 77066

== ENCOUNTER → 2021-09-24 | Outpatient (CLI) | payer OTHER ==
--- NOTE | 2021-09-24 17:00 | CT ---
EXAMINATION TYPE: CT lumbar spine wo con DATE OF EXAM: 09/24/2021 COMPARISON: 10/18/2018 MRI lumbar spine HISTORY: Abnormal MRI CT DLP: 993 mGycm CONTRAST: None TECHNIQUE: CT of the lumbar spine is performed on a spiral scan at 3 mm thick sections. Reconstructed images are performed in the coronal and sagittal planes. FINDINGS: T12-L1: Vacuum disc phenomenon is present. There is disc space narrowing. No focal degenerative facet changes are present. Fixation rods within the lower thoracic spine are evident. The T12 fixation levi hook appears to be within the central posterior canal. L1-L2: No focal disc herniations are evident. Mild disc space narrowing is present. Facet hypertrophy is present. Moderate right and mild left foraminal stenosis is present. L2-L3: Broad-based disc bulge is present with mild intrathecal sac compression. Facet hypertrophy is present. There is mild to moderate left foraminal stenosis. Severe right foraminal stenosis is presen t. L3-L4: There is a grade 1 spondylolisthesis of L3 anteriorly L4. There is loss of disc height at this level. Disc uncovering has moderate anterior thecal sac compression. Facet hypertrophy is present. S evere right and moderate left foraminal narrowing is present. Some lateral canal narrowing may be pre sent. L4-L5: Vacuum disc phenomenon is present. Disc space narrowing is present. Endplate changes are prese nt. Facet hypertrophy is present. Severe bilateral foraminal stenosis is present. L5-S1: There is loss of disc height at this level. Endplate changes are present. Minimal retrolisthes is of L5 on S1 may be present. Facet hypertrophy is present. Severe bilateral foraminal stenosis pres ent. Some canal narrowing may be present due to disc bulging and facet hypertrophy. Scoliosis is present. IMPRESSION: 1. Multilevel degenerative disc change with vacuum disc phenomenon. 2. Minimal retrolisthesis of L5 on S1. 3. Multilevel severe foraminal stenosis discussed above. 4. Lateral canal narrowing L3-4 due to facet hypertrophy. 5. Some canal narrowing may be present L5-S1. Correlate with symptoms.
== END | disposition home or self-care (01) ==
LOC: RADCTMAIN 12:34
PROVIDERS: ATTEND Psychiatry & Neurology Neurology
DX: M43.16 Spondylolisthesis, lumbar region (principal); M47.816 Spondylosis without myelopathy or radiculopathy, lumbar region; M99.73 Connective tissue and disc stenosis of intervertebral foramina of lumbar region
CPT/HCPCS: 72131

== ENCOUNTER 2022-01-21 14:30 | Inpatient (IN) | payer OTHER ==
[2022-01-21 15:40] LABS: Anisocytosis Slight; Basophils # (A) 0.1 k/uL (0-0.2); Basophils % (A) 1 %; Eosinophils # (A) 0.3 k/uL (0-0.7); Eosinophils % (A) 3 %; HCT 45.6 % (34.0-46.0); HGB 14.5 gm/dL (11.4-16.0); Hypochromasia Slight; Lymphocytes # (A) 2.5 k/uL (1.0-4.8); Lymphocytes % (A) 25 %; MCH 27.8 pg (25.0-35.0); MCHC 31.8 g/dL (31.0-37.0); MCV 87.2 fL (80.0-100.0); Mean Platelet Volume 10.1; Monocytes # (A) 0.6 k/uL (0-1.0); Monocytes % (A) 6 %; Neutrophils # (A) 6.2 k/uL (1.3-7.7); Neutrophils % (A) 63 %; Platelet Count 299 k/uL (150-450); Poikilocytosis Slight; RBC 5.23 m/uL (3.80-5.40); RDW 16.8 % (11.5-15.5); WBC 9.9 k/uL (3.8-10.6)
[2022-01-21 15:58] LABS: ALT 17 U/L (4-34); African American GFR (CKD) >90 (>60 ml/min/1.73 sqM); Albumin 3.8 g/dL (3.5-5.0); Anion Gap 11 mmol/L; Blood Urea Nitrogen 15 mg/dL (7-17); Calcium 8.5 mg/dL (8.4-10.2); Carbon Dioxide 27 mmol/L (22-30); Chloride 100 mmol/L (98-107); Glucose 218 mg/dL (74-99); Non-African American GFR(CKD) 82 (>60 ml/min/1.73 sqM); Sodium 138 mmol/L (137-145); Total Bilirubin 0.7 mg/dL (0.2-1.3); Total Protein 6.7 g/dL (6.3-8.2)
--- NOTE | 2022-01-21 16:01 | XR ---
EXAMINATION TYPE: XR chest 2V DATE OF EXAM: 01/21/2022 COMPARISON: Chest x-ray February 24, 2019. CT chest April 24, 2019. HISTORY: Difficulty in breathing. TECHNIQUE: Frontal and lateral views of the chest are obtained. FINDINGS: There is some chronic parenchymal changes bilaterally without suspicious focal air space o pacity, pleural effusion, or pneumothorax seen. The cardiac silhouette size is stable and within nor mal limits. Underlying scoliosis with [place] levi correction redemonstrated. Osseous structures ar e demineralized. IMPRESSION: Chronic changes without acute process.
[2022-01-21 16:03] LABS: INR 1.1 (<1.2); Partial Thromboplastin Time 22.1 sec (22.0-30.0); Prothrombin Time 11.3 sec (9.0-12.0)
[2022-01-21 16:15] LABS: AST 39 U/L (14-36); Alkaline Phosphatase 52 U/L (38-126); Potassium 4.4 mmol/L (3.5-5.1)
--- NOTE | 2022-01-21 16:22 | ED ---
Extremity Problem HPI - General Chief complaint: Extremity Problem,Nontraumatic Stated complaint: Swollen Feet Time Seen by Provider: 01/21/22 15:07 Source: patient, family Mode of arrival: wheelchair Limitations: no limitations - History of Present Illness Initial comments: Patient is a 61-year-old female with past medical history significant for COPD, hypertension, hyperlipidemia, and type 2 diabetes who presents to the emergency department with a chief complaint of bilateral ankle swelling and shortness of breath since last night. Patient reports that swelling was initially in the left ankle and progressively turned into swelling of both ankles. She denies history of injury or trauma to the bilateral lower extremities. She denies bilateral leg, ankle, and foot pain. Patient reports that she feels more short of breath than normal with shortness of breath occurring at rest. She denies worsening of shortness of breath when laying flat. She does not wear oxygen at home. She denies history of congestive heart failure. Patient states she has had a dry cough for a few days. She denies other concerns at this time including fever, chills, headache, sore throat, chest pain, palpitations, abdominal pain, nausea, vomiting, and dysuria. - Related Data Home Medications Medication Instructions Recorded Confirmed Cyclobenzaprine [Flexeril] 10 mg PO HS 07/11/14 01/21/22 traMADol HCl [Ultram] 50 mg PO Q6H PRN 07/11/14 01/21/22 Omeprazole [PriLOSEC] 20 mg PO DAILY 08/05/14 01/21/22 Allopurinol 100 mg PO DAILY 05/27/16 01/21/22 Fenofibrate 160 mg PO DAILY 05/27/16 01/21/22 Glimepiride [Amaryl] 8 mg PO DAILY 06/28/17 01/21/22 rOPINIRole HCL [Requip] 0.25 mg PO HS 06/02/18 01/21/22 Budesonide-Formot 160-4.5 Mcg 2 puff INHALATION RT-BID PRN 02/23/19 01/21/22 [Symbicort 160-4.5 Mcg Inhaler] Atorvastatin [Lipitor] 80 mg PO HS 01/21/22 01/21/22 Empagliflozin [Jardiance] 25 mg PO DAILY 01/21/22 01/21/22 Ergocalciferol (Vitamin D2) 1,250 mcg PO MO 01/21/22 01/21/22 [Drisdol (50,000 Iu)] Losartan Potassium [Cozaar] 100 mg PO DAILY 01/21/22 01/21/22 Magnesium Oxide [Magox 400] 400 mg PO DAILY 01/21/22 01/21/22 Pregabalin [Lyrica] 150 mg PO BID 01/21/22 01/21/22 hydroCHLOROthiazide [Hydrodiuril] 25 mg PO DAILY 01/21/22 01/21/22 metFORMIN HCL [Glucophage] 1,000 mg PO BID 01/21/22 01/21/22 sitaGLIPtin PHOSPHATE [Januvia] 100 mg PO DAILY 01/21/22 01/21/22 Allergies Allergy/AdvReac Type Severity Reaction Status Date / Time codeine AdvReac Severe Abdominal Verified 01/21/22 17:01 Pain Review of Systems ROS Statement: Those systems with pertinent positive or pertinent negative responses have been documented in the HPI. ROS Other: All systems not noted in ROS Statement are negative. Past Medical History Past Medical History: COPD, Diabetes Mellitus, Eye Disorder, GERD/Reflux, Hyperlipidemia, Hypertension, Osteoarthritis (OA) Additional Past Medical History / Comment(s): Start of glaucoma. "Knees have been giving out." DDD. Stage 1 Emphysema, gout, lower back and left hip pain, History of Any Multi-Drug Resistant Organisms: None Reported Past Surgical History: Back Surgery, Section, Cholecystectomy, Tubal Ligation Additional Past Surgical History / Comment(s): MARBIN PLACED FOR SCOLIOSIS as child. mult left breast biopsy, Past Anesthesia/Blood Transfusion Reactions: No Reported Reaction Past Psychological History: No Psychological Hx Reported Smoking Status: Current every day smoker Past Alcohol Use History: None Reported Past Drug Use History: None Reported - Past Family History Brother(s) Family Medical History: Diabetes Mellitus Mother Family Medical History: Cancer Father Family Medical History: Cancer General Exam Limitations: no limitations General appearance: alert, in no apparent distress Head exam: Present: atraumatic, normocephalic, normal inspection Neck exam: Present: normal inspection Respiratory exam: Present: wheezes (Bilaterally). Absent: respiratory distress, rhonchi, accessory muscle use, decreased breath sounds Cardiovascular Exam: Present: normal rhythm, tachycardia GI/Abdominal exam: Present: soft. Absent: distended, tenderness, guarding, rebound, rigid Extremities exam: Present: pedal edema (1 + bilaterally ), other (negative [place] sign bilaterally). Absent: calf tenderness Neurological exam: Present: alert, oriented X3, CN II-XII intact Psychiatric exam: Present: normal affect, normal mood Skin exam: Present: warm, dry, intact, normal color. Absent: rash Course Vital Signs 01/21/22 01/21/22 01/21/22 14:31 17:43 17:45 Temperature 96.9 F L Pulse Rate 111 H 99 100 Pulse Rate [ 99 [employer] ] Respiratory 18 18 Rate Blood Pressure 124/72 114/83 O2 Sat by Pulse 96 88 L Oximetry 01/21/22 01/21/22 01/21/22 17:55 18:50 20:06 Temperature Pulse Rate 92 93 98 Pulse Rate [ [employer] ] Respiratory 18 18 Rate Blood Pressure 102/67 139/94 O2 Sat by Pulse 81 L 98 Oximetry Medical Decision Making - Medical Decision Making This is a 61-year-old female who presents with bilateral leg swelling and shortness of breath since yesterday. Thorough history and examination were performed. Patient is afebrile. Oxygen is 96% room air. She is tachycardic at 111. Lung auscultation reveals bilateral wheezing. There is 1+ pitting edema of the lower extremities bilaterally. The lower extremities are not erythema tous or painful with palpation. EKG reveals sinus tachycardia. Laboratory studies are relatively unremarkable with both d-dimer and BNP within normal limits. COVID-19 and influenza are not detected. Chest x-ray was obtained which shows chronic changes without acute process. Patient given IV steroids, DuoNeb treatment, and fluids in the emergency department. On reevaluation shortness of breath has improved. Patient will be discharged with instruction to follow-up with her primary care provider for leg swelling at earliest availability. 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 She'll be discharged with prednisone prescription. Patient reports she already has an albuterol nebulizer at home and is instructed to use the nebulizer as needed for shortness of breath. Return parameters discussed. Patient verbalizes understanding and is agreeable to plan. Upon discharge patient became hypoxic at 82% room air. She was put on 2 L of oxygen via nasal cannula with repeat oxygen at 98%. Patient is unsafe to go home and requires admission. Case discussed with Dr. Islas. Patient will be admitted to her service with pulmonary consult for further evaluation and m anagement. She is agreeable to admission. Dr. Benitez is my attending. - Lab Data Result diagrams: 01/21/22 15:27 01/21/22 15:27 Lab Results 01/21/22 01/21/22 01/21/22 Range/Units 15:27 15:27 15:27 WBC 9.9 (3.8-10.6) k/uL RBC 5.23 (3.80-5.40) m/uL Hgb 14.5 (11.4-16.0) gm/dL Hct 45.6 (34.0-46.0) % MCV 87.2 (80.0-100.0) fL MCH 27.8 (25.0-35.0) pg MCHC 31.8 (31.0-37.0) g/dL RDW 16.8 H (11.5-15.5) % Plt Count 299 (150-450) k/uL MPV 10.1 Neutrophils % 63 % Lymphocytes % 25 % Monocytes % 6 % Eosinophils % 3 % Basophils % 1 % Neutrophils # 6.2 (1.3-7.7) k/uL Lymphocytes # 2.5 (1.0-4.8) k/uL Monocytes # 0.6 (0-1.0) k/uL Eosinophils # 0.3 (0-0.7) k/uL Basophils # 0.1 (0-0.2) k/uL Hypochromasia Slight Poikilocytosis Slight Anisocytosis Slight PT 11.3 (9.0-12.0) sec INR 1.1 (<1.2) APTT 22.1 (22.0-30.0) sec D-Dimer 0.45 (<0.60) mg/L FEU Sodium 138 (137-145) mmol/L Potassium 4.4 (3.5-5.1) mmol/L Chloride 100 (98-107) mmol/L Carbon Dioxide 27 (22-30) mmol/L Anion Gap 11 mmol/L BUN 15 (7-17) mg/dL Creatinine 0.77 (0.52-1.04) mg/dL Est GFR (CKD-EPI)AfAm >90 (>60 ml/min/1.73 sqM) Est GFR (CKD-EPI)NonAf 82 (>60 ml/min/1.73 sqM) Glucose 218 H (74-99) mg/dL Lactic Ac Sepsis Rflx Plasma Lactic Acid Jon (0.7-2.0) mmol/L Calcium 8.5 (8.4-10.2) mg/dL Total Bilirubin 0.7 (0.2-1.3) mg/dL AST 39 H (14-36) U/L ALT 17 (4-34) U/L Alkaline Phosphatase 52 (38-126) U/L NT-Pro-B Natriuret Pep pg/mL Total Protein 6.7 (6.3-8.2) g/dL Albumin 3.8 (3.5-5.0) g/dL Influenza Type A (PCR) (Not Detectd) Influenza Type B (PCR) (Not Detectd) RSV (PCR) (Not Detectd) SARS-CoV-2 (PCR) (Not Detectd) 01/21/22 01/21/22 01/21/22 Range/Units 15:27 15:27 16:00 WBC (3.8-10.6) k/uL RBC (3.80-5.40) m/uL Hgb (11.4-16.0) gm/dL Hct (34.0-46.0) % MCV (80.0-100.0) fL MCH (25.0-35.0) pg MCHC (31.0-37.0) g/dL RDW (11.5-15.5) % Plt Count (150-450) k/uL MPV Neutrophils % % Lymphocytes % % Monocytes % % Eosinophils % % Basophils % % Neutrophils # (1.3-7.7) k/uL Lymphocytes # (1.0-4.8) k/uL Monocytes # (0-1.0) k/uL Eosinophils # (0-0.7) k/uL Basophils # (0-0.2) k/uL Hypochromasia Poikilocytosis Anisocytosis PT (9.0-12.0) sec INR (<1.2) APTT (22.0-30.0) sec D-Dimer (<0.60) mg/L FEU Sodium (137-145) mmol/L Potassium (3.5-5.1) mmol/L Chloride (98-107) mmol/L Carbon Dioxide (22-30) mmol/L Anion Gap mmol/L BUN (7-17) mg/dL Creatinine (0.52-1.04) mg/dL Est GFR (CKD-EPI)AfAm (>60 ml/min/1.73 sqM) Est GFR (CKD-EPI)NonAf (>60 ml/min/1.73 sqM) Glucose (74-99) mg/dL Lactic Ac Sepsis Rflx Plasma Lactic Acid Jon 2.5 H* (0.7-2.0) mmol/L Calcium (8.4-10.2) mg/dL Total Bilirubin (0.2-1.3) mg/dL AST (14-36) U/L ALT (4-34) U/L Alkaline Phosphatase (38-126) U/L NT-Pro-B Natriuret Pep 133 pg/mL Total Protein (6.3-8.2) g/dL Albumin (3.5-5.0) g/dL Influenza Type A (PCR) Not Detected (Not Detectd) Influenza Type B (PCR) Not Detected (Not Detectd) RSV (PCR) Not Detected (Not Detectd) SARS-CoV-2 (PCR) Not Detected (Not Detectd) 01/21/22 Range/Units 16:16 WBC (3.8-10.6) k/uL RBC (3.80-5.40) m/uL Hgb (11.4-16.0) gm/dL Hct (34.0-46.0) % MCV (80.0-100.0) fL MCH (25.0-35.0) pg MCHC (31.0-37.0) g/dL RDW (11.5-15.5) % Plt Count (150-450) k/uL MPV Neutrophils % % Lymphocytes % % Monocytes % % Eosinophils % % Basophils % % Neutrophils # (1.3-7.7) k/uL Lymphocytes # (1.0-4.8) k/uL Monocytes # (0-1.0) k/uL Eosinophils # (0-0.7) k/uL Basophils # (0-0.2) k/uL Hypochromasia Poikilocytosis Anisocytosis PT (9.0-12.0) sec INR (<1.2) APTT (22.0-30.0) sec D-Dimer (<0.60) mg/L FEU Sodium (137-145) mmol/L Potassium (3.5-5.1) mmol/L Chloride (98-107) mmol/L Carbon Dioxide (22-30) mmol/L Anion Gap mmol/L BUN (7-17) mg/dL Creatinine (0.52-1.04) mg/dL Est GFR (CKD-EPI)AfAm (>60 ml/min/1.73 sqM) Est GFR (CKD-EPI)NonAf (>60 ml/min/1.73 sqM) Glucose (74-99) mg/dL Lactic Ac Sepsis Rflx Y Plasma Lactic Acid Jon (0.7-2.0) mmol/L Calcium (8.4-10.2) mg/dL Total Bilirubin (0.2-1.3) mg/dL AST (14-36) U/L ALT (4-34) U/L Alkaline Phosphatase (38-126) U/L NT-Pro-B Natriuret Pep pg/mL Total Protein (6.3-8.2) g/dL Albumin (3.5-5.0) g/dL Influenza Type A (PCR) (Not Detectd) Influenza Type B (PCR) (Not Detectd) RSV (PCR) (Not Detectd) SARS-CoV-2 (PCR) (Not Detectd) Disposition Clinical Impression: Shortness of breath, Edema of both legs, Hypoxemia Disposition: ADMITTED IP TO THIS HOSP Condition: Fair Is patient prescribed a controlled substance at d/c from ED?: No Referrals: Shun Simmons DO [Primary Care Provider] - 1-2 days Decision Time: 18:57
[2022-01-21] MEDS ORDERED: IPRATROPIUM-ALBUTEROL 3 ML NEB INHALATION STA (16:25)
[2022-01-21] MEDS ORDERED: SODIUM CHLORIDE 0.9% 1,000 ML IV STA (16:40)
[2022-01-21] MEDS ORDERED: methylPREDNISolone SOD SUCCI 125 MG/2 ML VIAL IV STA (16:40)
[2022-01-21 16:49] LABS: Influenza A Not Detected (Not Detectd); Influenza B Not Detected (Not Detectd)
[2022-01-21] MEDS ORDERED: NICOTINE 14MG/24HR PATCH TRANSDERM STA (19:36)
[2022-01-21] MEDS ORDERED: NALOXONE 0.4 MG/ML 1 ML VIAL IV PRN (20:21)
[2022-01-21 20:23] LABS: Appearance,Urine Clear (Clear); Bacteria,Urine Rare /hpf; Bilirubin,Urine Negative (Negative); Blood,Urine Negative (Negative); Color,Urine Yellow; Glucose,Urine (UA) 4+ (Negative); Ketones,Urine Negative (Negative); Leukocyte Esterase,Urine Trace (Negative); Nitrite,Urine Positive (Negative); Protein,Urine Negative (Negative); RBC,Urine 1 /hpf (0-5); Specific Gravity,Urine 1.025 (1.001-1.035); Squamous Epithelial Cell,Urine 1 /hpf (0-4); Urobilinogen,Urine <2.0 mg/dL (<2.0); WBC,Urine 9 /hpf (0-5)
[2022-01-21] MEDS: CYCLOBENZAPRINE 5 MG TAB PO PRN (23:33)
[2022-01-22 08:18] LABS: AST 36 U/L (14-36); African American GFR (CKD) >90 (>60 ml/min/1.73 sqM); Albumin/Globulin Ratio 1.4; Alkaline Phosphatase 54 U/L (38-126); Anion Gap 12 mmol/L; Blood Urea Nitrogen 19 mg/dL (7-17); Calcium 9.1 mg/dL (8.4-10.2); Carbon Dioxide 27 mmol/L (22-30); Chloride 102 mmol/L (98-107); Globulin 2.9 g/dL; Glucose 244 mg/dL (74-99); Non-African American GFR(CKD) 82 (>60 ml/min/1.73 sqM); Potassium 4.1 mmol/L (3.5-5.1); Sodium 141 mmol/L (137-145); Total Bilirubin 0.6 mg/dL (0.2-1.3); Total Protein 6.9 g/dL (6.3-8.2)
[2022-01-22 08:19] LABS: Anisocytosis Slight; Basophils % (A) 0 %; Eosinophils % (A) 0 %; HCT 48.1 % (34.0-46.0); HGB 14.6 gm/dL (11.4-16.0); Hypochromasia Marked; Lymphocytes # (A) 1.3 k/uL (1.0-4.8); Lymphocytes % (A) 13 %; MCH 27.5 pg (25.0-35.0); MCHC 30.3 g/dL (31.0-37.0); MCV 90.6 fL (80.0-100.0); Mean Platelet Volume 10.4; Monocytes # (A) 0.2 k/uL (0-1.0); Monocytes % (A) 2 %; Neutrophils # (A) 8.3 k/uL (1.3-7.7); Neutrophils % (A) 84 %; Platelet Count 336 k/uL (150-450); RDW 17.3 % (11.5-15.5); WBC 9.9 k/uL (3.8-10.6)
[2022-01-22 08:25] LABS: ALT 27 U/L (4-34)
[2022-01-22 12:12] LABS: Glucose,Whole Blood 264 mg/dL (75-99)
[2022-01-22] MEDS ORDERED: SYMBICORT 160-4.5 MCG INHALER INHALATION PRN (13:28)
[2022-01-22] MEDS: Empagliflozin [Jardiance] PO SCH (13:51)
[2022-01-22] MEDS: metFORMIN 500 MG TAB PO SCH ×2 (13:53→17:44)
[2022-01-22] MEDS: PREGABALIN 75 MG CAP PO SCH ×2 (13:53→20:33)
[2022-01-22] MEDS: MAGNESIUM OXIDE 400 MG TAB PO SCH (13:54)
[2022-01-22] MEDS: GLIMEPIRIDE 4 MG TAB PO SCH (13:54)
[2022-01-22] MEDS: LINAGLIPTIN 5 MG TABLET PO SCH (13:54)
[2022-01-22] MEDS: PANTOPRAZOLE 40 MG TABLET PO SCH (13:54)
[2022-01-22] MEDS: FENOFIBRATE 160 MG TAB PO SCH (13:54)
[2022-01-22] MEDS: traMADol 50 MG TAB PO PRN ×2 (13:54→20:36)
[2022-01-22] MEDS: hydroCHLOROthiazide 25 MG TAB PO SCH (13:54)
[2022-01-22] MEDS: LOSARTAN 50 MG TAB PO SCH (13:54)
[2022-01-22] MEDS: allopurinoL 100 MG TAB PO SCH (13:54)
--- NOTE | 2022-01-22 15:29 | P.CNPUL ---
History of Present Illness Consult date: 01/22/22 Reason for consult: dyspnea, COPD History of present illness: This is a 61-year-old here patient with known history of COPD. The patient has an FEV1 of 71% of predicted based on the previous spirometry is within 2019 and the patient carries a diffusion capacity of 75% of predicted. Nevertheless, this was done around 3 years ago and the patient has continued to smoke over the years and she carries more than [id number] smoking necessity patient continues to smoke about 1 pack of cigarettes a day. She is coming into the hospital because of worsening shortness of breath. Increased dyspnea cough chest tightness or wheezing. No angina. No palpitation. She has also noted some increased lower eczema swelling bilaterally. She is known to have hypertension and hyperlipidemia and she is also diabetic. No altered mentation. No calf p ain or tenderness. She has no home O2. Currently she is on 2 L of oxygen by nasal cannula. No headaches. No altered mentation. No palpitations. She has been maintained on Symbicort on outpatient basis in addition to her routine medications including diabetic medications. The patient had a temperature 96.9. The patient is hemodynamically stable. The patient had a chest x-ray that showed no evidence of any acute pneumonia. It was consistent with COPD. COVID 19 testing was negative. It was a screen was negative. The blood work shows a white cell count of 9.9 with hemoglobin 14.7 and platelet count of 299. Sodium is at 1.8 with a potassium level of 4.4. Normal renal function with a creatinine of 0.7. The patient has elected against level of 2.5. The patient will be admitted for an acute COPD exacerbation. She was hospitalized back in 2019 20 cavitating right lung pneumonia which has left a scar in the right midlung area. Otherwise no other abnormalities are seen in the chest x-ray. There is a lumbar spine hardware inserted for scoliosis and this was a surgical correction of his scoliosis that was done at the young age of 11. This hardware seen on the repeated chest x-rays. Review of Systems Constitutional: Reports fatigue, Reports weight gain Eyes: denies as per HPI, denies blurred vision, denies bulging eye, denies decreased vision, denies diplopia, denies discharge, denies dry eye, denies irri tation, denies itching, denies pain, denies photophobia, denies loss of peripheral vision, denies loss of vision, denies tunnel vision/blind spots Ears: deny: decreased hearing, ear discharge, earache, tinnitus Ears, nose, mouth and throat: Reports as per HPI Breasts: absent: as per HPI, change in shape, gynecomastia, masses, nipple discharge, pain, skin changes, swelling Respiratory: Reports cough, Reports dyspnea Gastrointestinal: Reports as per HPI Genitourinary: Reports as per HPI Menstruation: Reports as per HPI Musculoskeletal: Reports as per HPI Musculoskeletal: bilateral: ankle swelling, absent: ankle pain, ankle stiffness Integumentary: Reports as per HPI Neurological: Reports as per HPI Psychiatric: Reports as per HPI Endocrine: Reports as per HPI Hematologic/Lymphatic: Reports as per HPI Allergic/Immunologic: Reports as per HPI Past Medical History Past Medical History: COPD, Diabetes Mellitus, Eye Disorder, GERD/Reflux, Hyperlipidemia, Hypertension, Osteoarthritis (OA) Additional Past Medical History / Comment(s): Start of glaucoma. "Knees have been giving out." DDD. Stage 1 Emphysema, gout, lower back and left hip pain, History of Any Multi-Drug Resistant Organisms: None Reported Past Surgical History: Back Surgery, Section, Cholecystectomy, Tubal Ligation Additional Past Surgical History / Comment(s): MARBIN PLACED FOR SCOLIOSIS as child. mult left breast biopsy, Past Anesthesia/Blood Transfusion Reactions: No Reported Reaction Past Psychological History: No Psychological Hx Reported Additional Psychological History / Comment(s): . Smoking Status: Current every day smoker Past Alcohol Use History: None Reported Additional Past Alcohol Use History / Comment(s): Has been smoking since 14 yrs old, > 1 PPD. Past Drug Use History: None Reported Additional Drug Use History / Comment(s): . - Past Family History Brother(s) Family Medical History: Diabetes Mellitus Mother Family Medical History: Cancer Father Family Medical History: Cancer Medications and Allergies Home Medications Medication Instructions Recorded Confirmed Type Cyclobenzaprine [Flexeril] 10 mg PO HS 07/11/14 01/21/22 History traMADol HCl [Ultram] 50 mg PO Q6H PRN 07/11/14 01/21/22 History Omeprazole [PriLOSEC] 20 mg PO DAILY 08/05/14 01/21/22 History Allopurinol 100 mg PO DAILY 05/27/16 01/21/22 History Fenofibrate 160 mg PO DAILY 05/27/16 01/21/22 History Glimepiride [Amaryl] 8 mg PO DAILY 06/28/17 01/21/22 History rOPINIRole HCL [Requip] 0.25 mg PO HS 06/02/18 01/21/22 History Budesonide-Formot 160-4.5 Mcg 2 puff INHALATION RT-BID PRN 02/23/19 01/21/22 History [Symbicort 160-4.5 Mcg Inhaler] Atorvastatin [Lipitor] 80 mg PO HS 01/21/22 01/21/22 History Empagliflozin [Jardiance] 25 mg PO DAILY 01/21/22 01/21/22 History Ergocalciferol (Vitamin D2) 1,250 mcg PO MO 01/21/22 01/21/22 History [Drisdol (50,000 Iu)] Losartan Potassium [Cozaar] 100 mg PO DAILY 01/21/22 01/21/22 History Magnesium Oxide [Magox 400] 400 mg PO DAILY 01/21/22 01/21/22 History Pregabalin [Lyrica] 150 mg PO BID 01/21/22 01/21/22 History hydroCHLOROthiazide [Hydrodiuril] 25 mg PO DAILY 01/21/22 01/21/22 History metFORMIN HCL [Glucophage] 1,000 mg PO BID 01/21/22 01/21/22 History sitaGLIPtin PHOSPHATE [Januvia] 100 mg PO DAILY 01/21/22 01/21/22 History Allergies Allergy/AdvReac Type Severity Reaction Status Date / Time codeine AdvReac Severe Abdominal Verified 01/21/22 17:01 Pain Physical Exam Vitals: Vital Signs Temp Pulse Pulse Pulse Resp BP BP 01/22/22 15:00 98.1 F 108 H 16 101/66 01/22/22 11:45 97.4 F L 91 16 122/86 01/22/22 08:00 94 01/22/22 07:00 97.6 F 94 18 138/89 01/22/22 06:00 99 18 134/86 01/21/22 20:06 98 18 139/94 01/21/22 18:50 93 18 102/67 01/21/22 17:55 92 01/21/22 17:45 100 01/21/22 17:43 99 99 18 114/83 Pulse Ox 01/22/22 15:00 94 L 01/22/22 11:45 97 01/22/22 08:00 01/22/22 07:00 93 L 01/22/22 06:00 91 L 01/21/22 20:06 98 01/21/22 18:50 81 L 01/21/22 17:55 01/21/22 17:45 01/21/22 17:43 88 L Intake and Output 01/22/22 01/22/22 01/22/22 06:59 14:59 22:59 Other: Voiding Method Toilet # Voids 2 2 General appearance: alert, in no apparent distress, the patient is currently on 2 L of oxygen by nasal cannula. Head exam: Present: atraumatic, normocephalic, normal inspection Neck exam: Present: normal inspection Respiratory exam: Present: wheezes (Bilaterally). Absent: respiratory distress, rhonchi, accessory muscle use, decreased breath sounds Cardiovascular Exam: Present: normal rhythm, tachycardia GI/Abdominal exam: Present: soft. Absent: distended, tenderness, guarding, rebound, rigid Extremities exam: Present: pedal edema (1 + bilaterally ), other (negative [place] sign bilaterally). Absent: calf tenderness Neurological exam: Present: alert, oriented X3, CN II-XII intact, Neurologically, the patient is awake and alert and the patient does not have any focal neurological deficit. Cranial nerves are essentially intact. Psychiatric exam: Present: normal affect, normal mood Skin exam:Examination of the skin revealed no evidence of significant rashes, suspicious appearing nevi or other concerning lesions. Results - Laboratory Findings CBC and BMP: 01/22/22 07:49 01/22/22 07:49 PT/INR, D-dimer PT 11.3 sec (9.0-12.0) 01/21/22 15:27 INR 1.1 (<1.2) 01/21/22 15:27 D-Dimer 0.45 mg/L FEU (<0.60) 01/21/22 15:27 Abnormal lab findings: Abnormal Labs 01/21/22 01/21/22 01/21/22 15:27 15:27 15:27 Hct MCHC RDW 16.8 H Neutrophils # BUN Glucose 218 H POC Glucose (mg/dL) Plasma Lactic Acid Jon 2.5 H* AST 39 H Urine Glucose (UA) Urine Nitrite Ur Leukocyte Esterase Urine WBC Urine Bacteria 01/21/22 01/22/22 01/22/22 20:07 07:49 07:49 Hct 48.1 H MCHC 30.3 L RDW 17.3 H Neutrophils # 8.3 H BUN 19 H Glucose 244 H POC Glucose (mg/dL) Plasma Lactic Acid Jon AST Urine Glucose (UA) 4+ H Urine Nitrite Positive H Ur Leukocyte Esterase Trace H Urine WBC 9 H Urine Bacteria Rare H 01/22/22 01/22/22 07:49 12:11 Hct MCHC RDW Neutrophils # BUN Glucose POC Glucose (mg/dL) 264 H Plasma Lactic Acid Jon 2.9 H* AST Urine Glucose (UA) Urine Nitrite Ur Leukocyte Esterase Urine WBC Urine Bacteria - Diagnostic Findings Chest x-ray: image reviewed Assessment and Plan Plan: 1 acute exacerbation of chronic COPD. The patient is having shortness of breath and patient has bronchus spastic and wheezy. The patient's chest x-ray shows no acute abnormalities. Presentation is typical for an acute COPD exacerbation. 2 acute hypoxic respiratory failure secondary to above, currently on 2 L of oxygen by nasal cannula 3 known history of COPD maintained on Symbicort on outpatient basis 4 obesity with a BMI of 33.3 5 history of smoking 6 hypertension 7 diabetes mellitus with a component of steroid-induced hyperglycemia 8 osteoarthritis 9 history of scoliosis of the spine, corrected surgically and the patient is appropriate lumbar hardware seen on chest x-ray Plan Admit this patient to the hospital for optimization of COPD DuoNeb nebulized treatments around the clock Resume Symbicort maintenance IV Solu-Medrol Monitor blood sugar control and treat accordingly Resume oral hypoglycemic medication, and cover this patient with NovoLog sliding scale coverage Resume all medications Smoking cessation counseling May need to repeat PFT on outpatient basis following this acute exacerbation to evaluate the severity of the underlying COPD
[2022-01-22] MEDS: NICOTINE 21MG/24HR PATCH TRANSDERM SCH (15:48)
[2022-01-22 17:17] LABS: Glucose,Whole Blood 228 mg/dL (75-99)
[2022-01-22] MEDS: INSULIN ASPART (NovoLOG) 100 UNIT/ML VIAL SQ SCH ×2 (17:44→21:31)
[2022-01-22] MEDS: ATORVASTATIN 80 MG TAB PO SCH (20:33)
[2022-01-22 20:46] LABS: Glucose,Whole Blood 142 mg/dL (75-99)
[2022-01-22] MEDS ORDERED: methylPREDNISolone SOD SUCCI 125 MG/2 ML VIAL IV ONE (21:30)
[2022-01-22] MEDS: CYCLOBENZAPRINE 5 MG TAB PO PRN (21:30)
--- NOTE | 2022-01-22 21:35 | P.HPIM ---
History of Present Illness H&P Date: 01/22/22 Chief Complaint: Shortness of breath Patient is a 61-year-old female with a long history of hypertension, hyperlipidemia, osteoarthritis, COPD not on home oxygen, currently everyday smoker, stage I emphysema and low back pain and left hip pain presents to ER with complaints of worsening shortness of breath and chest tightness. Patient is also complaining bilateral feet, ankle swelling. Denied a history of congestive heart failure. No complaints of leg pain. Denies any trauma to the legs or fall. Otherwise patient does cough without any sputum production. Denies any fever or chills. No nausea vomiting abdominal pain or diarrhea. No dysuria or hematuria. On admission patient was tachycardic with heart rate 111 and hypoxic with pulse ox 88% on room air. Patient was given duo nebs and IV Solu-Medrol with improvement in symptoms but she still having exertional dyspnea and was admitted to hospital. Chest x-ray showed chronic changes without acute process. EKG showed sinus tachycardia Laboratory showed WBC 9.9, hemoglobin 14.5 and platelets 299 D-dimer is 0.45 Sodium 138 potassium 4.4 chloride 100 bicarb is 27 BUN 15 and creatinine 0.77 blood sugar is 218 lactic acid 2.5 AST 38 ALT 17 alk phos 52 and proBNP 133 and urinalysis showed 4+ glucose and nitrite positive and trace leukoesterase. WBC is 9 Influenza PCR and COVID-19 PCR not detected. Review of Systems Constitutional: Patient denies any fever or chills . No generalized weakness or weight loss. Abdomen: Patient denied nausea vomiting and diarrhea and abdominal pain. Cardiovascular: Patient denies any chest pain. Positive short of breath no palpitations. Respiratory: Patient does have cough without sputum production and shortness of breath. Neurologic: Patient denied any numbness or tingling headache. Musculoskeletal: Patient denies any complaints of joint swelling or deformity. Skin: Negative Psychiatric: Negative Endocrine: No heat or cold intolerance. No recent weight gain. Genitourinary: No dysuria or hematuria. All other 14 point ROS negative except the above Past Medical History Past Medical History: COPD, Diabetes Mellitus, Eye Disorder, GERD/Reflux, Hyperlipidemia, Hypertension, Osteoarthritis (OA) Additional Past Medical History / Comment(s): Start of glaucoma. "Knees have been giving out." DDD. Stage 1 Emphysema, gout, lower back and left hip pain, History of Any Multi-Drug Resistant Organisms: None Reported Past Surgical History: Back Surgery, Section, Cholecystectomy, Tubal Ligation Additional Past Surgical History / Comment(s): MARBIN PLACED FOR SCOLIOSIS as child. mult left breast biopsy, Past Anesthesia/Blood Transfusion Reactions: No Reported Reaction Past Psychological History: No Psychological Hx Reported Additional Psychological History / Comment(s): . Smoking Status: Current every day smoker Past Alcohol Use History: None Reported Additional Past Alcohol Use History / Comment(s): Has been smoking since 14 yrs old, > 1 PPD. Past Drug Use History: None Reported Additional Drug Use History / Comment(s): . - Past Family History Brother(s) Family Medical History: Diabetes Mellitus Mother Family Medical History: Cancer Father Family Medical History: Cancer Medications and Allergies Home Medications Medication Instructions Recorded Confirmed Type Cyclobenzaprine [Flexeril] 10 mg PO HS 07/11/14 01/21/22 History traMADol HCl [Ultram] 50 mg PO Q6H PRN 07/11/14 01/21/22 History Omeprazole [PriLOSEC] 20 mg PO DAILY 08/05/14 01/21/22 History Allopurinol 100 mg PO DAILY 05/27/16 01/21/22 History Fenofibrate 160 mg PO DAILY 05/27/16 01/21/22 History Glimepiride [Amaryl] 8 mg PO DAILY 06/28/17 01/21/22 History rOPINIRole HCL [Requip] 0.25 mg PO HS 06/02/18 01/21/22 History Budesonide-Formot 160-4.5 Mcg 2 puff INHALATION RT-BID PRN 02/23/19 01/21/22 History [Symbicort 160-4.5 Mcg Inhaler] Atorvastatin [Lipitor] 80 mg PO HS 01/21/22 01/21/22 History Empagliflozin [Jardiance] 25 mg PO DAILY 01/21/22 01/21/22 History Ergocalciferol (Vitamin D2) 1,250 mcg PO MO 01/21/22 01/21/22 History [Drisdol (50,000 Iu)] Losartan Potassium [Cozaar] 100 mg PO DAILY 01/21/22 01/21/22 History Magnesium Oxide [Magox 400] 400 mg PO DAILY 01/21/22 01/21/22 History Pregabalin [Lyrica] 150 mg PO BID 01/21/22 01/21/22 History hydroCHLOROthiazide [Hydrodiuril] 25 mg PO DAILY 01/21/22 01/21/22 History metFORMIN HCL [Glucophage] 1,000 mg PO BID 01/21/22 01/21/22 History sitaGLIPtin PHOSPHATE [Januvia] 100 mg PO DAILY 01/21/22 01/21/22 History Allergies Allergy/AdvReac Type Severity Reaction Status Date / Time codeine AdvReac Severe Abdominal Verified 01/21/22 17:01 Pain Physical Exam Vitals: Vital Signs Temp Pulse Pulse Pulse Resp BP BP 01/22/22 11:45 97.4 F L 91 16 122/86 01/22/22 08:00 94 01/22/22 07:00 97.6 F 94 18 138/89 01/22/22 06:00 99 18 134/86 01/21/22 20:06 98 18 139/94 01/21/22 18:50 93 18 102/67 01/21/22 17:55 92 01/21/22 17:45 100 01/21/22 17:43 99 99 18 114/83 Pulse Ox 01/22/22 11:45 97 01/22/22 08:00 01/22/22 07:00 93 L 01/22/22 06:00 91 L 01/21/22 20:06 98 01/21/22 18:50 81 L 01/21/22 17:55 01/21/22 17:45 01/21/22 17:43 88 L Intake and Output 01/21/22 01/22/22 01/22/22 22:59 06:59 14:59 Other: Voiding Method Toilet # Voids 2 Weight 82.554 kg PHYSICAL EXAMINATION: Patient is lying in the bed comfortably, no acute distress, awake alert and oriented.. HEENT: Normocephalic. Neck is supple. Pupils reactive. Nostrils clear. Oral cavity is moist. Neck reveals no JVD, carotid bruits, or thyromegaly. CHEST EXAMINATION: Trachea is central. Symmetrical expansion bilateral diminished air entry and wheezing.. CARDIAC: Normal S1, S2 with no gallops. No murmurs ABDOMEN: Soft. Bowel sounds normal. No organomegaly. No abdominal bruits. Extremities bilateral lower extremity trace edema.. No clubbing or cyanosis Neurologically awake, alert, oriented x3 with well-coordinated movements. No focal deficits noted Skin: No rash or skin lesions. Psychiatric: Cooperative. Nonsuicidal Musculoskeletal: No joint swelling or deformity. Normal range of motion. Results CBC & Chem 7: 01/22/22 07:49 01/22/22 07:49 Labs: Abnormal Lab Results - Last 24 Hours (Table) 01/21/22 01/21/22 01/21/22 Range/Units 15:27 15:27 15:27 Hct (34.0-46.0) % MCHC (31.0-37.0) g/dL RDW 16.8 H (11.5-15.5) % Neutrophils # (1.3-7.7) k/uL BUN (7-17) mg/dL Glucose 218 H (74-99) mg/dL POC Glucose (mg/dL) (75-99) mg/dL Plasma Lactic Acid Jon 2.5 H* (0.7-2.0) mmol/L AST 39 H (14-36) U/L Urine Glucose (UA) (Negative) Urine Nitrite (Negative) Ur Leukocyte Esterase (Negative) Urine WBC (0-5) /hpf Urine Bacteria (None) /hpf 01/21/22 01/22/22 01/22/22 Range/Units 20:07 07:49 07:49 Hct 48.1 H (34.0-46.0) % MCHC 30.3 L (31.0-37.0) g/dL RDW 17.3 H (11.5-15.5) % Neutrophils # 8.3 H (1.3-7.7) k/uL BUN 19 H (7-17) mg/dL Glucose 244 H (74-99) mg/dL POC Glucose (mg/dL) (75-99) mg/dL Plasma Lactic Acid Jon (0.7-2.0) mmol/L AST (14-36) U/L Urine Glucose (UA) 4+ H (Negative) Urine Nitrite Positive H (Negative) Ur Leukocyte Esterase Trace H (Negative) Urine WBC 9 H (0-5) /hpf Urine Bacteria Rare H (None) /hpf 01/22/22 01/22/22 Range/Units 07:49 12:11 Hct (34.0-46.0) % MCHC (31.0-37.0) g/dL RDW (11.5-15.5) % Neutrophils # (1.3-7.7) k/uL BUN (7-17) mg/dL Glucose (74-99) mg/dL POC Glucose (mg/dL) 264 H (75-99) mg/dL Plasma Lactic Acid Jon 2.9 H* (0.7-2.0) mmol/L AST (14-36) U/L Urine Glucose (UA) (Negative) Urine Nitrite (Negative) Ur Leukocyte Esterase (Negative) Urine WBC (0-5) /hpf Urine Bacteria (None) /hpf Thrombosis Risk Factor Assmnt - DVT/VTE Prophylaxis DVT/VTE Prophylaxis: Pharmacologic Prophylaxis ordered - Choose All That Apply Each Factor Represents 1 point: Swollen legs (current) Thrombosis Risk Factor Assessment Total Risk Factor Score: 1 Thrombosis Risk Factor Assessment Level: Low Risk Assessment and Plan Assessment: Shortness of breath secondary to acute COPD exacerbation. Acute hypoxic respiratory failure secondary to above. Improved Lactic acidosis likely secondary to hypoxia Bilateral feet swelling without evidence of CHF. BNP 133. Ongoing nicotine addiction Acute urinary tract infection Hypertension Hyperlipidemia GERD Diabetes type 2 hyperglycemia uncontrolled Osteoarthritis Chronic low back pain DVT prophylaxis with heparin subcu Plan: Patient will be continued oxygen supplementation as needed. Continue with duo nebs and IV Solu-Medrol 60 mg every 6 hourly. Smoking cessation has been counseled Patient will be started on ceftriaxone and follow-up urine culture. Continue with home medications and, GI DVT prophylaxis. Patient is currently on Jardiance and is more susceptible for urinary tract infections. Also on Metformin. Follow-up A1c level continue with insulin sliding scale as well. Time with Patient: Greater than 30
[2022-01-22] MEDS: HEPARIN SODIUM,PORCINE/PF 5,000 UNIT/0.5 ML SYRINGE SQ SCH (23:25)
[2022-01-23] MEDS: methylPREDNISolone SOD SUCCI 125 MG/2 ML VIAL IV SCH ×2 (01:24→05:35)
[2022-01-23 07:26] LABS: Glucose,Whole Blood 499 mg/dL (75-99)
[2022-01-23 08:55] LABS: HGB 13.2 g/dL (12.0-15.0); MCH 26.4 pg (27.0-32.0); MCHC 29.3 g/dL (32.0-37.0); Mean Platelet Volume 12.2 fL (9.5-12.2); NRBC Per 100 WBC 0 /100 WBCS (0.0-0.0); Platelet Count 289 X 10*3/uL (140-440); RDW 18.3 % (11.5-14.5); WBC 8.52 X 10*3/uL (4.50-10.00)
[2022-01-23] MEDS: metFORMIN 500 MG TAB PO SCH ×2 (09:27→17:53)
[2022-01-23] MEDS: LOSARTAN 50 MG TAB PO SCH (09:27)
[2022-01-23] MEDS: INSULIN ASPART (NovoLOG) 100 UNIT/ML VIAL SQ SCH ×4 (09:27→21:00)
[2022-01-23 09:28] LABS: Anion Gap 11.8 mmol/L (10.00-18.00); BUN/Creat Ratio 31.63 Ratio (12.00-20.00); Blood Urea Nitrogen 30.3 mg/dL (9.0-27.0); Calcium 9.2 mg/dL (8.7-10.3); Carbon Dioxide 25.1 mmol/L (20.0-27.5); Non-African American GFR(CKD) 63.1 (60.0-200.0)
[2022-01-23] MEDS: allopurinoL 100 MG TAB PO SCH (09:28)
[2022-01-23] MEDS: PREGABALIN 75 MG CAP PO SCH ×2 (09:28→20:11)
[2022-01-23] MEDS: Empagliflozin [Jardiance] PO SCH (09:28)
[2022-01-23] MEDS: PANTOPRAZOLE 40 MG TABLET PO SCH (09:28)
[2022-01-23] MEDS: HEPARIN SODIUM,PORCINE/PF 5,000 UNIT/0.5 ML SYRINGE SQ SCH ×2 (09:28→15:51)
[2022-01-23] MEDS: MAGNESIUM OXIDE 400 MG TAB PO SCH (09:28)
[2022-01-23] MEDS: GLIMEPIRIDE 4 MG TAB PO SCH (09:29)
[2022-01-23] MEDS: FENOFIBRATE 160 MG TAB PO SCH (09:29)
[2022-01-23] MEDS: NICOTINE 21MG/24HR PATCH TRANSDERM SCH (09:29)
[2022-01-23] MEDS: hydroCHLOROthiazide 25 MG TAB PO SCH (09:29)
[2022-01-23] MEDS: LINAGLIPTIN 5 MG TABLET PO SCH (09:29)
[2022-01-23 10:07] LABS: Basophils # (A) 0.03 X 10*3/uL (0.00-0.10); Basophils % (A) 0.4 %; Eosinophils # (A) 0 X 10*3/uL (0.04-0.35); Eosinophils % (A) 0 %; Immature Grans, Automated 2.2 %; Lymphocytes # (A) 0.92 X 10*3/uL (0.90-5.00); Lymphocytes % (A) 10.8 %; Monocytes # (A) 0.09 X 10*3/uL (0.20-1.00); Monocytes % (A) 1.1 %; Neutrophils # (A) 7.29 X 10*3/uL (1.80-7.70); Neutrophils % (A) 85.5 %
[2022-01-23 10:08] LABS: RBC Morphology NORMAL
[2022-01-23 11:58] LABS: Glucose,Whole Blood 549 mg/dL (75-99)
[2022-01-23] MEDS ORDERED: INSULIN ASPART (NovoLOG) 100 UNIT/ML VIAL SQ ONE (12:04)
[2022-01-23 12:19] VITALS: BMI 33.3
--- NOTE | 2022-01-23 14:39 | P.PN ---
Subjective Progress Note Date: 01/23/22 01/23/2022, the patient is feeling better. Less bronchospastic and wheezy and she is off oxygen. She was started on IV Solu-Medrol and combination to bronchodilators to optimize her COPD. On today's evaluation, she has been found to be hyperglycemic and the potassium level came back at 6.0. The patient is going to need blood sugar management is being done by the medical team. Meanwhile, I'm going to discontinue the IV Solu Medrol start the patient a prednisone burst taper. The patient is currently on a combination of oral hypoglycemic medication and the patient was also started on sliding scale insulin coverage. Repeat potassium level came back at 4.7. Blood sugar remains elevated. Objective - Vital Signs Vital signs: Vital Signs Temp 97.8 F 01/23/22 14:14 Pulse 99 01/23/22 14:14 Resp 17 01/23/22 14:14 BP 127/74 01/23/22 14:14 Pulse Ox 89 L 01/23/22 14:14 Intake & Output 01/22/22 01/23/22 01/23/22 18:59 06:59 18:59 Intake Total 118 200 Balance 118 200 Weight 82.554 kg Intake: Oral 118 200 Other: Voiding Method Toilet Toilet # Voids 2 1 1 - Exam General appearance: alert, in no apparent distress, the patient is currently on 2 L of oxygen by nasal cannula. Head exam: Present: atraumatic, normocephalic, normal inspection Neck exam: Present: normal inspection Respiratory exam: Present: wheezes (Bilaterally). Absent: respiratory distress, rhonchi, accessory muscle use, decreased breath sounds Cardiovascular Exam: Present: normal rhythm, tachycardia GI/Abdominal exam: Present: soft. Absent: distended, tenderness, guarding, rebound, rigid Extremities exam: Present: pedal edema (1 + bilaterally ), other (negative [place] sign bilaterally). Absent: calf tenderness Neurological exam: Present: alert, oriented X3, CN II-XII intact, Neurologically, the patient is awake and alert and the patient does not have any focal neurological deficit. Cranial nerves are essentially intact. Psychiatric exam: Present: normal affect, normal mood Skin exam:Examination of the skin revealed no evidence of significant rashes, suspicious appearing nevi or other concerning lesions. - Labs CBC & Chem 7: 01/23/22 04:52 01/23/22 12:50 Labs: Abnormal Lab Results - Last 24 Hours (Table) 01/22/22 01/22/22 01/23/22 Range/Units 17:16 20:44 04:52 MCH 26.4 L (27.0-32.0) pg MCHC 29.3 L (32.0-37.0) g/dL RDW 18.3 H (11.5-14.5) % Immature Gran # 0.19 H (0.00-0.04) X 10*3/uL Monocytes # 0.09 L (0.20-1.00) X 10*3/uL Eosinophils # 0 L (0.04-0.35) X 10*3/uL Potassium (3.5-5.5) mmol/L BUN (9.0-27.0) mg/dL BUN/Creatinine Ratio (12.00-20.00) Ratio Glucose (70-110) mg/dL POC Glucose (mg/dL) 228 H 142 H (75-99) mg/dL Hemoglobin A1c (0.0-6.0) % 01/23/22 01/23/22 01/23/22 Range/Units 04:52 04:52 07:25 MCH (27.0-32.0) pg MCHC (32.0-37.0) g/dL RDW (11.5-14.5) % Immature Gran # (0.00-0.04) X 10*3/uL Monocytes # (0.20-1.00) X 10*3/uL Eosinophils # (0.04-0.35) X 10*3/uL Potassium 6.0 H (3.5-5.5) mmol/L BUN 30.3 H (9.0-27.0) mg/dL BUN/Creatinine Ratio 31.63 H (12.00-20.00) Ratio Glucose 554 H* (70-110) mg/dL POC Glucose (mg/dL) 499 H (75-99) mg/dL Hemoglobin A1c 9.3 H (0.0-6.0) % 01/23/22 Range/Units 11:56 MCH (27.0-32.0) pg MCHC (32.0-37.0) g/dL RDW (11.5-14.5) % Immature Gran # (0.00-0.04) X 10*3/uL Monocytes # (0.20-1.00) X 10*3/uL Eosinophils # (0.04-0.35) X 10*3/uL Potassium (3.5-5.5) mmol/L BUN (9.0-27.0) mg/dL BUN/Creatinine Ratio (12.00-20.00) Ratio Glucose (70-110) mg/dL POC Glucose (mg/dL) 549 H (75-99) mg/dL Hemoglobin A1c (0.0-6.0) % Assessment and Plan Plan: 1 acute exacerbation of chronic COPD. The patient is having shortness of breath and patient has bronchus spastic and wheezy. The patient's chest x-ray shows no acute abnormalities. Presentation is typical for an acute COPD exacerbation. The patient is clinically improving 2 acute hypoxic respiratory failure secondary to above,, improved currently on room air oxygen 3 known history of COPD maintained on Symbicort on outpatient basis 4 obesity with a BMI of 33.3 5 history of smoking 6 hypertension 7 diabetes mellitus with a component of steroid-induced hyperglycemia 8 osteoarthritis 9 history of scoliosis of the spine, corrected surgically and the patient is appropriate lumbar hardware seen on chest x-ray Plan Management of hyperglycemia per internal medicine COPD exacerbation is improved douneb nebulized treatments around the clock Symbicort maintenance IV Solu-Medrol will be discontinued and the patient will be started on a prednisone burst taper Monitor blood sugar control and treat accordingly Resume oral hypoglycemic medication, and cover this patient with NovoLog sliding scale coverage Resume all medications Smoking cessation counseling Not ready for discharge because of an underlying hyperglycemia May need to repeat PFT on outpatient basis following this acute exacerbation to evaluate the severity of the underlying COPD
[2022-01-23] MEDS: traMADol 50 MG TAB PO PRN (15:51)
[2022-01-23 16:12] LABS: Glucose,Whole Blood 287 mg/dL (75-99)
[2022-01-23 17:22] LABS: Glucose,Whole Blood 258 mg/dL (75-99)
[2022-01-23] MEDS: ATORVASTATIN 80 MG TAB PO SCH (20:12)
[2022-01-23] MEDS: CYCLOBENZAPRINE 5 MG TAB PO PRN (20:12)
[2022-01-23 20:47] LABS: Glucose,Whole Blood 235 mg/dL (75-99)
[2022-01-23] MEDS ORDERED: INSULIN DETEMIR (LEVEMIR) 100 UNIT/ML SYR SQ ONE (23:21)
--- NOTE | 2022-01-23 23:32 | P.PN ---
Subjective Progress Note Date: 01/23/22 Patient is a 61-year-old female with a long history of hypertension, hyperlipidemia, osteoarthritis, COPD not on home oxygen, currently everyday smoker, stage I emphysema and low back pain and left hip pain presents to ER with complaints of worsening shortness of breath and chest tightness. Patient is also complaining bilateral feet, ankle swelling. Denied a history of congestive heart failure. No complaints of leg pain. Denies any trauma to the legs or fall. Otherwise patient does cough without any sputum production. Denies any fever or chills. No nausea vomiting abdominal pain or diarrhea. No dysuria or hematuria. On admission patient was tachycardic with heart rate 111 and hypoxic with pulse ox 88% on room air. Patient was given duo nebs and IV Solu-Medrol with improvement in symptoms but she still having exertional dyspnea and was admitted to hospital. Chest x-ray showed chronic changes without acute process. EKG showed sinus tachycardia Laboratory showed WBC 9.9, hemoglobin 14.5 and platelets 299 D-dimer is 0.45 Sodium 138 potassium 4.4 chloride 100 bicarb is 27 BUN 15 and creatinine 0.77 blood sugar is 218 lactic acid 2.5 AST 38 ALT 17 alk phos 52 and proBNP 133 and urinalysis showed 4+ glucose and nitrite positive and trace leukoesterase. WBC is 9 Influenza PCR and COVID-19 PCR not detected. 01/23/2022 Patient is currently sitting on side of the bed. Awake alert and oriented. Currently titrated down to room air. Shortness of breath did improve and mild expiratory wheezing. Bilateral air entry is much improved now. No complaints of chest pain. No headache or dizziness or lightheadedness. Alert blood sugar went up to 499 and potassium level was 6.0. Patient was given insulin sliding scale. Continue with oral hypoglycemic agent. Repeat potassium level also blood sugar is controlled he is 4.7. Laboratory tests showed WBC 8.52 hemoglobin 13.1 platelets 289 sodium 137 potassium was 6.0 chloride 100 bicarb is 25.1 BUN 30.3, creatinine 1.0 and A1c is 9.3. Pulmonary is on board. Anticipate discharge once blood sugar is better controlled. IV methylprednisolone changed to prednisone 40 mg daily. Current medications reviewed. Objective - Vital Signs Vital signs: Vital Signs Temp 98.1 F 01/23/22 19:12 Pulse 60 01/23/22 19:12 Resp 18 01/23/22 19:12 BP 129/85 01/23/22 19:12 Pulse Ox 92 L 01/23/22 19:12 Intake & Output 01/23/22 01/23/22 01/24/22 06:59 18:59 06:59 Intake Total 200 Balance 200 Weight 82.554 kg Intake: Oral 200 Other: Voiding Method Toilet # Voids 1 1 - Exam PHYSICAL EXAMINATION: Patient is lying in the bed comfortably, no acute distress, awake alert and orie nted.. HEENT: Normocephalic. Neck is supple. Pupils reactive. Nostrils clear. Oral cavity is moist. Neck reveals no JVD, carotid bruits, or thyromegaly. CHEST EXAMINATION: Trachea is central. Symmetrical expansion. mil d expiratory wheezing.. CARDIAC: Normal S1, S2 with no gallops. No murmurs ABDOMEN: Soft. Bowel sounds normal. No organomegaly. No abdominal bruits. Extremities bilateral lower extremity trace edema.. No clubbing or cyanosis Neurologically awake, alert, oriented x3 with well-coordinated movements. No focal deficits noted Skin: No rash or skin lesions. Psychiatric: Cooperative. Nonsuicidal Musculoskeletal: No joint swelling or deformity. Normal range of motion. - Labs CBC & Chem 7: 01/23/22 04:52 01/23/22 12:50 Labs: Abnormal Lab Results - Last 24 Hours (Table) 01/23/22 01/23/22 01/23/22 Range/Units 04:52 04:52 04:52 MCH 26.4 L (27.0-32.0) pg MCHC 29.3 L (32.0-37.0) g/dL RDW 18.3 H (11.5-14.5) % Immature Gran # 0.19 H (0.00-0.04) X 10*3/uL Monocytes # 0.09 L (0.20-1.00) X 10*3/uL Eosinophils # 0 L (0.04-0.35) X 10*3/uL Potassium 6.0 H (3.5-5.5) mmol/L BUN 30.3 H (9.0-27.0) mg/dL BUN/Creatinine Ratio 31.63 H (12.00-20.00) Ratio Glucose 554 H* (70-110) mg/dL POC Glucose (mg/dL) (75-99) mg/dL Hemoglobin A1c 9.3 H (0.0-6.0) % 01/23/22 01/23/22 01/23/22 Range/Units 07:25 11:56 16:11 MCH (27.0-32.0) pg MCHC (32.0-37.0) g/dL RDW (11.5-14.5) % Immature Gran # (0.00-0.04) X 10*3/uL Monocytes # (0.20-1.00) X 10*3/uL Eosinophils # (0.04-0.35) X 10*3/uL Potassium (3.5-5.5) mmol/L BUN (9.0-27.0) mg/dL BUN/Creatinine Ratio (12.00-20.00) Ratio Glucose (70-110) mg/dL POC Glucose (mg/dL) 499 H 549 H 287 H (75-99) mg/dL Hemoglobin A1c (0.0-6.0) % 01/23/22 01/23/22 Range/Units 17:21 20:42 MCH (27.0-32.0) pg MCHC (32.0-37.0) g/dL RDW (11.5-14.5) % Immature Gran # (0.00-0.04) X 10*3/uL Monocytes # (0.20-1.00) X 10*3/uL Eosinophils # (0.04-0.35) X 10*3/uL Potassium (3.5-5.5) mmol/L BUN (9.0-27.0) mg/dL BUN/Creatinine Ratio (12.00-20.00) Ratio Glucose (70-110) mg/dL POC Glucose (mg/dL) 258 H 235 H (75-99) mg/dL Hemoglobin A1c (0.0-6.0) % Assessment and Plan Assessment: Shortness of breath secondary to acute COPD exacerbation. Acute hypoxic respiratory failure secondary to above. Improved Hypoglycemia with uncontrolled diabetes type 2. A1c 9.3. Hyperkalemia Lactic acidosis likely secondary to hypoxia Bilateral feet swelling without evidence of CHF. BNP 133. Ongoing nicotine addiction Acute urinary tract infection Hypertension Hyperlipidemia GERD Diabetes type 2 hyperglycemia uncontrolled Osteoarthritis Chronic low back pain DVT prophylaxis with heparin subcu Plan: Patient will be continued oxygen supplementation as needed. Continued with duo nebs and IV Solu-Medrol 60 mg every 6 hourly.Change to prednisone 40 mg daily. Smoking cessation has been counseled Patient will be started on ceftriaxone and follow-up urine culture. Continue with home medications and, GI DVT prophylaxis. Patient is currently on Jardiance and is more susceptible for urinary tract infections. Also on Metformin. A1c 9.1. Lantus 10 units at bedtime was added. continue with insulin sliding scale as well. Time with Patient: Greater than 30
[2022-01-24] MEDS: HEPARIN SODIUM,PORCINE/PF 5,000 UNIT/0.5 ML SYRINGE SQ SCH ×2 (00:17→08:36)
[2022-01-24] MEDS: traMADol 50 MG TAB PO PRN (00:18)
[2022-01-24 00:19] LABS: Glucose,Whole Blood 138 mg/dL (75-99)
[2022-01-24 07:35] LABS: Glucose,Whole Blood 214 mg/dL (75-99)
[2022-01-24 08:36] VITALS: BP 111/76; PULSE 110; RESP 19; TEMP 98.1
[2022-01-24] MEDS: metFORMIN 500 MG TAB PO SCH (08:36)
[2022-01-24] MEDS: INSULIN ASPART (NovoLOG) 100 UNIT/ML VIAL SQ SCH ×2 (08:36→12:29)
[2022-01-24] MEDS: MAGNESIUM OXIDE 400 MG TAB PO SCH (08:36)
[2022-01-24] MEDS: PANTOPRAZOLE 40 MG TABLET PO SCH (08:36)
[2022-01-24] MEDS: PREGABALIN 75 MG CAP PO SCH (08:37)
[2022-01-24] MEDS: LOSARTAN 50 MG TAB PO SCH (08:37)
[2022-01-24] MEDS: NICOTINE 21MG/24HR PATCH TRANSDERM SCH (08:37)
[2022-01-24] MEDS: LINAGLIPTIN 5 MG TABLET PO SCH (08:37)
[2022-01-24] MEDS: FENOFIBRATE 160 MG TAB PO SCH (08:37)
[2022-01-24] MEDS: allopurinoL 100 MG TAB PO SCH (08:37)
[2022-01-24] MEDS: hydroCHLOROthiazide 25 MG TAB PO SCH (08:37)
[2022-01-24] MEDS: GLIMEPIRIDE 4 MG TAB PO SCH (08:37)
[2022-01-24] MEDS ORDERED: predniSONE 20 MG TAB PO SCH (09:00)
[2022-01-24] MEDS: Empagliflozin [Jardiance] PO SCH (10:42)
[2022-01-24 12:19] LABS: African American GFR (CKD) 73.1 (60.0-200.0)
[2022-01-24 12:26] LABS: Glucose,Whole Blood 290 mg/dL (75-99)
[2022-01-24 12:48] LABS: African American GFR (CKD) 72.4 (60.0-200.0); Anion Gap 14.4 mmol/L (10.00-18.00); BUN/Creat Ratio 43.89 Ratio (12.00-20.00); Blood Urea Nitrogen 42.4 mg/dL (9.0-27.0); Calcium 9.3 mg/dL (8.7-10.3); Carbon Dioxide 25.7 mmol/L (20.0-27.5); Non-African American GFR(CKD) 62.5 (60.0-200.0); Potassium 3.7 mmol/L (3.5-5.5)
--- NOTE | 2022-01-24 16:56 | P.PN ---
Subjective Progress Note Date: 01/24/22 01/23/2022, the patient is feeling better. Less bronchospastic and wheezy and she is off oxygen. She was started on IV Solu-Medrol and combination to bronchodilators to optimize her COPD. On today's evaluation, she has been found to be hyperglycemic and the potassium level came back at 6.0. The patient is going to need blood sugar management is being done by the medical team. Meanwhile, I'm going to discontinue the IV Solu Medrol start the patient a prednisone burst taper. The patient is currently on a combination of oral hypoglycemic medication and the patient was also started on sliding scale insulin coverage. Repeat potassium level came back at 4.7. Blood sugar remains elevated. 01/27/2020, the patient is doing well. Less short of breath. Blood sugars under better control. No new complaints otherwise for now. She is insistent on discharge and I think it's reasonable as long as the patient remains stable. No other complaint otherwise for now. The patient COPD exacerbations essentially improving for now. Objective - Vital Signs Vital signs: Vital Signs Temp 98.1 F 01/24/22 07:10 Pulse 110 H 01/24/22 07:10 Resp 19 01/24/22 07:10 BP 111/76 01/24/22 07:10 Pulse Ox 91 L 01/24/22 07:10 Intake & Output 01/23/22 01/24/22 01/24/22 18:59 06:59 18:59 Intake Total 200 236 Balance 200 236 Weight 82.554 kg Intake: Oral 200 236 Other: Voiding Method Toilet # Voids 1 1 - Exam General appearance: alert, in no apparent distress, the patient is currently on 2 L of oxygen by nasal cannula. Head exam: Present: atraumatic, normocephalic, normal inspection Neck exam: Present: normal inspection Respiratory exam: Present: wheezes (Bilaterally). Absent: respiratory distress, rhonchi, accessory muscle use, decreased breath sounds Cardiovascular Exam: Present: normal rhythm, tachycardia GI/Abdominal exam: Present: soft. Absent: distended, tenderness, guarding, amy ound, rigid Extremities exam: Present: pedal edema (1 + bilaterally ), other (negative [place] sign bilaterally). Absent: calf tenderness Neurological exam: Present: alert, oriented X3, CN II-XII intact, Neurologically, the patient is awake and alert and the patient does not have any focal neurological deficit. Cranial nerves are essentially intact. Psychiatric exam: Present: normal affect, normal mood Skin exam:Examination of the skin revealed no evidence of significant rashes, suspicious appearing nevi or other concerning lesions. - Labs CBC & Chem 7: 01/23/22 04:52 01/24/22 06:15 Labs: Abnormal Lab Results - Last 24 Hours (Table) 01/23/22 01/23/22 01/23/22 Range/Units 04:52 17:21 20:42 BUN (9.0-27.0) mg/dL BUN/Creatinine Ratio (12.00-20.00) Ratio Glucose 554 H* (70-110) mg/dL POC Glucose (mg/dL) 258 H 235 H (75-99) mg/dL 01/24/22 01/24/22 01/24/22 Range/Units 00:16 06:15 07:34 BUN 42.4 H (9.0-27.0) mg/dL BUN/Creatinine Ratio 43.89 H (12.00-20.00) Ratio Glucose 208 H (70-110) mg/dL POC Glucose (mg/dL) 138 H 214 H (75-99) mg/dL 01/24/22 Range/Units 12:24 BUN (9.0-27.0) mg/dL BUN/Creatinine Ratio (12.00-20.00) Ratio Glucose (70-110) mg/dL POC Glucose (mg/dL) 290 H (75-99) mg/dL Assessment and Plan Plan: 1 acute exacerbation of chronic COPD. The patient is having shortness of breath and patient has bronchus spastic and wheezy. The patient's chest x-ray shows no acute abnormalities. Presentation is typical for an acute COPD exacerbation. The patient is clinically improving 2 acute hypoxic respiratory failure secondary to above,, improved currently on room air oxygen 3 known history of COPD maintained on Symbicort on outpatient basis 4 obesity with a BMI of 33.3 5 history of smoking 6 hypertension 7 diabetes mellitus with a component of steroid-induced hyperglycemia 8 osteoarthritis 9 history of scoliosis of the spine, corrected surgically and the patient is appropriate lumbar hardware seen on chest x-ray Plan The patient was discharged home on a course of Ceftin, prednisone burst taper and the patient will continue her oral hypoglycemic medications and monitor blood sugars on outpatient basis. Initiate Symbicort as maintenance regarding her COPD Resume all medications Smoking cessation counseling Not ready for discharge because of an underlying hyperglycemia May need to repeat PFT on outpatient basis following this acute exacerbation to evaluate the severity of the underlying COPD We'll be glad to follow-up this patient on outpatient basis
[2022-01-25] MEDS ORDERED: ERGOCALCIFEROL 1,250 MCG (50,000 IU) CAPSULE PO SCH (09:00)
== END 2022-01-24 14:52 | disposition home or self-care (01) | DRG 190 ==
LOC: EC 14:30 → 6NMEDSUR 21:23 → OBSVTOIN 01-23 14:53
PROVIDERS: ADMIT Internal Medicine; ATTEND Internal Medicine
DX: J43.9 Emphysema, unspecified (principal); J96.01 Acute respiratory failure with hypoxia; E87.2 Acidosis; N39.0 Urinary tract infection, site not specified; R22.43 Localized swelling, mass and lump, lower limb, bilateral; E11.65 Type 2 diabetes mellitus with hyperglycemia; E78.5 Hyperlipidemia, unspecified; E87.5 Hyperkalemia; F17.210 Nicotine dependence, cigarettes, uncomplicated; G89.29 Other chronic pain; I10 Essential (primary) hypertension; K21.9 Gastro-esophageal reflux disease without esophagitis; L30.9 Dermatitis, unspecified; M19.90 Unspecified osteoarthritis, unspecified site; T38.0X5A Adverse effect of glucocorticoids and synthetic analogues, initial encounter; E66.9 Obesity, unspecified; Z68.33 Body mass index [BMI] 33.0-33.9, adult; M41.9 Scoliosis, unspecified; Z20.822 Contact with and (suspected) exposure to COVID-19; Z79.4 Long term (current) use of insulin; Z79.51 Long term (current) use of inhaled steroids; Z79.84 Long term (current) use of oral hypoglycemic drugs; Z79.899 Other long term (current) drug therapy; Z83.3 Family history of diabetes mellitus; Z90.49 Acquired absence of other specified parts of digestive tract; Z98.51 Tubal ligation status; H40.9 Unspecified glaucoma; M10.9 Gout, unspecified; Z98.890 Other specified postprocedural states; Z88.5 Allergy status to narcotic agent; Z80.9 Family history of malignant neoplasm, unspecified
CPT/HCPCS: 36415; 71046; 80048; 80053; 81001; 83036; 83605; 83880; 84132; 85025; 85379; 85610; 85730; 87636; 93005; 94640; 96361; 96374; 99285

== ENCOUNTER 2022-03-20 17:59 | Emergency (ER) | payer OTHER ==
--- NOTE | 2022-03-20 19:38 | XR ---
EXAMINATION TYPE: XR lumbar spine 2 or 3V DATE OF EXAM: 03/20/2022 COMPARISON: NONE HISTORY: Back pain TECHNIQUE: 3 views FINDINGS: There is mild lumbar levoscoliosis. There is degenerative disc space narrowing throughout t he lumbar spine and more severe from L3 to S1. There is multilevel vacuum disc. Sacroiliac joints are intact. Abdominal aorta is atheromatous. IMPRESSION: Multilevel spondylosis. Levoscoliosis. No fracture.
[2022-03-20] MEDS ORDERED: HYDROmorphone 1 MG/ML 1 ML SYRINGE IM STA (21:40)
[2022-03-20] MEDS ORDERED: methylPREDNISolone 4 MG TAB PO SCH (21:45)
[2022-03-20] MEDS ORDERED: HYDROcodone/APAP 10-325MG 1 EACH TAB PO ONE (22:29)
--- NOTE | 2022-03-20 22:37 | ED ---
Back Pain HPI - General Chief Complaint: Back Pain/Injury Stated Complaint: Leg Pain/Swelling Time Seen by Provider: 03/20/22 21:09 Source: patient Limitations: no limitations - Related Data Home Medications Medication Instructions Recorded Confirmed Cyclobenzaprine [Flexeril] 10 mg PO HS 07/11/14 03/20/22 traMADol HCl [Ultram] 50 mg PO Q6H PRN 07/11/14 03/20/22 Omeprazole [PriLOSEC] 20 mg PO DAILY 08/05/14 03/20/22 Allopurinol 100 mg PO DAILY 05/27/16 03/20/22 Fenofibrate 160 mg PO DAILY 05/27/16 03/20/22 Glimepiride [Amaryl] 8 mg PO DAILY 06/28/17 03/20/22 rOPINIRole HCL [Requip] 0.25 mg PO HS 06/02/18 03/20/22 Budesonide-Formot 160-4.5 Mcg 2 puff INHALATION RT-BID 02/23/19 03/20/22 [Symbicort 160-4.5 Mcg Inhaler] Atorvastatin [Lipitor] 80 mg PO HS 01/21/22 03/20/22 Empagliflozin [Jardiance] 25 mg PO DAILY 01/21/22 03/20/22 Ergocalciferol (Vitamin D2) 1,250 mcg PO MO 01/21/22 03/20/22 [Drisdol (50,000 Iu)] Losartan Potassium [Cozaar] 100 mg PO DAILY 01/21/22 03/20/22 Magnesium Oxide [Magox 400] 400 mg PO DAILY 01/21/22 03/20/22 Pregabalin [Lyrica] 150 mg PO BID 01/21/22 03/20/22 metFORMIN HCL [Glucophage] 1,000 mg PO BID 01/21/22 03/20/22 sitaGLIPtin PHOSPHATE [Januvia] 100 mg PO DAILY 01/21/22 03/20/22 Albuterol Sulfate [Proair Hfa] 2 puff INHALATION RT-Q6H PRN 03/20/22 03/20/22 Dulaglutide [Trulicity] 0.75 mg SQ TH 03/20/22 03/20/22 Furosemide [Lasix] 20 mg PO DAILY 03/20/22 03/20/22 Previous Rx's Medication Instructions Recorded HYDROcodone/APAP 7.5-325MG [[place] 1 tab PO Q4H PRN 3 Days #18 tab 03/20/22 7.5-325] Allergies Allergy/AdvReac Type Severity Reaction Status Date / Time codeine AdvReac Severe Abdominal Verified 03/20/22 21:57 Pain Review of Systems ROS Statement: Those systems with pertinent positive or pertinent negative responses have been documented in the HPI. ROS Other: All systems not noted in ROS Statement are negative. Past Medical History Past Medical History: COPD, Diabetes Mellitus, Eye Disorder, GERD/Reflux, Hyperlipidemia, Hypertension, Osteoarthritis (OA) Additional Past Medical History / Comment(s): Start of glaucoma. "Knees have been giving out." DDD. Stage 1 Emphysema, gout, lower back and left hip pain, History of Any Multi-Drug Resistant Organisms: None Reported Past Surgical History: Back Surgery, Section, Cholecystectomy, Tubal Ligation Additional Past Surgical History / Comment(s): MARBIN PLACED FOR SCOLIOSIS as child. mult left breast biopsy, Past Anesthesia/Blood Transfusion Reactions: No Reported Reaction Past Psychological History: No Psychological Hx Reported Smoking Status: Current every day smoker Past Alcohol Use History: None Reported Past Drug Use History: None Reported - Past Family History Brother(s) Family Medical History: Diabetes Mellitus Mother Family Medical History: Cancer Father Family Medical History: Cancer General Exam Limitations: no limitations Course Vital Signs 03/20/22 18:39 Temperature 98.1 F Pulse Rate 111 H Respiratory 20 Rate Blood Pressure 100/62 O2 Sat by Pulse 92 L Oximetry Disposition Clinical Impression: Sciatic leg pain Disposition: HOME SELF-CARE Condition: Good Instructions (If sedation given, give patient instructions): Sciatica (ED), Lumbar Radiculopathy (ED) Additional Instructions: Please take medication as directed. Follow-up with your primary care provider and pharmacy clinical specialist in 1-2 days. Return to the emergency department if you experience new, concerning, or worsening symptoms. Prescriptions: HYDROcodone/APAP 7.5-325MG [[place] 7.5-325] 1 tab PO Q4H PRN 3 Days #18 tab PRN Reason: Pain Is patient prescribed a controlled substance at d/c from ED?: Yes If prescribed controlled substance>3 days was MAPS reviewed?: Prescribed <3 Days Referrals: Shun Simmons DO [Primary Care Provider] - 1-2 days Time of Disposition: 22:37
[2022-03-20 23:55] VITALS: BP 142/78; PULSE 87; RESP 18; TEMP 97.9
== END 2022-03-20 23:55 | disposition home or self-care (01) ==
LOC: EC 17:59
DX: M79.606 Pain in leg, unspecified (principal); J44.9 Chronic obstructive pulmonary disease, unspecified; E11.9 Type 2 diabetes mellitus without complications; K21.9 Gastro-esophageal reflux disease without esophagitis; Z79.83 Long term (current) use of bisphosphonates; F17.200 Nicotine dependence, unspecified, uncomplicated
CPT/HCPCS: 72100; 99283; 96372; J7509; J1170

== ENCOUNTER 2022-07-09 23:27 | Inpatient (IN) | payer OTHER ==
[2022-07-09] MEDS ORDERED: IPRATROPIUM-ALBUTEROL 3 ML NEB INHALATION STA ×2 (23:49)
[2022-07-09] MEDS ORDERED: methylPREDNISolone SOD SUCCI 125 MG/2 ML VIAL IV STA (23:49)
[2022-07-10 00:36] LABS: VBG PH 7.38 (7.31-7.41)
[2022-07-10] MEDS ORDERED: IPRATROPIUM-ALBUTEROL 3 ML NEB INHALATION STA (00:53)
[2022-07-10 01:02] LABS: INR 1.3 (<1.2); Partial Thromboplastin Time 23.5 sec (22.0-30.0); Prothrombin Time 13.3 sec (9.0-12.0)
[2022-07-10 01:03] LABS: Appearance,Urine Cloudy (Clear); Bacteria,Urine Few /hpf; Bilirubin,Urine Negative (Negative); Blood,Urine Negative (Negative); Color,Urine Light Yellow; Glucose,Urine (UA) 4+ (Negative); Ketones,Urine 1+ (Negative); Leukocyte Esterase,Urine Large (Negative); Nitrite,Urine Negative (Negative); PH, Urine 7.5 (5.0-8.0); Protein,Urine Trace (Negative); RBC,Urine 7 /hpf (0-5); Specific Gravity,Urine 1.019 (1.001-1.035); Urobilinogen,Urine <2.0 mg/dL (<2.0); WBC,Urine 110 /hpf (0-5)
[2022-07-10 01:07] LABS: Anisocytosis Slight; Basophils # (A) 0.1 k/uL (0-0.2); Basophils % (A) 1 %; Eosinophils % (A) 0 %; HCT 40.6 % (34.0-46.0); HGB 12.4 gm/dL (11.4-16.0); Hypochromasia Marked; Lymphocytes # (A) 1.9 k/uL (1.0-4.8); Lymphocytes % (A) 15 %; MCH 25.7 pg (25.0-35.0); MCHC 30.4 g/dL (31.0-37.0); MCV 84.4 fL (80.0-100.0); Mean Platelet Volume 9.6; Monocytes # (A) 0.9 k/uL (0-1.0); Monocytes % (A) 7 %; Neutrophils % (A) 76 %; Platelet Count 503 k/uL (150-450); Poikilocytosis Slight; RBC 4.82 m/uL (3.80-5.40); RDW 16.6 % (11.5-15.5); WBC 13.1 k/uL (3.8-10.6)
[2022-07-10 01:09] LABS: Lactic Acid, Venous 1.2 mmol/L (0.7-2.0)
[2022-07-10 01:10] LABS: ALT 20 U/L (4-34); AST 49 U/L (14-36); African American GFR (CKD) 71 (>60 ml/min/1.73 sqM); Albumin 3.6 g/dL (3.5-5.0); Alcohol <10 mg/dL; Alkaline Phosphatase 70 U/L (38-126); Anion Gap 16 mmol/L; Blood Urea Nitrogen 28 mg/dL (7-17); Calcium 8.5 mg/dL (8.4-10.2); Carbon Dioxide 35 mmol/L (22-30); Chloride 92 mmol/L (98-107); Glucose 213 mg/dL (74-99); Non-African American GFR(CKD) 62 (>60 ml/min/1.73 sqM); Sodium 143 mmol/L (137-145); Total Bilirubin 0.3 mg/dL (0.2-1.3); Total Protein 6.1 g/dL (6.3-8.2)
--- NOTE | 2022-07-10 01:23 | XR ---
EXAMINATION TYPE: XR chest 1V portable DATE OF EXAM: 07/10/2022 COMPARISON: 01/21/2022 HISTORY: Short of breath TECHNIQUE: FINDINGS: Heart size is fairly normal. The lungs are clear of consolidation. There is some coarsening of the interstitial markings in the lower lung marquez. There are chest leads. There is left-sided th oracic spinal rods stabilizing a mild thoracic dextroscoliosis. No evidence of a pulmonary mass. IMPRESSION: There is increased pulmonary interstitial density compared to old exam with decreased ins piration. This could be acute interstitial pneumonia. No pleural fluid or cardiomegaly seen to sugges t heart failure. Acute heart failure not excluded.
[2022-07-10 01:29] LABS: Amphetamine Screen,Urine Not Detected (NotDetected); Barbiturate Screen,Urine Not Detected (NotDetected); Benzodiazepines Screen,Urine Not Detected (NotDetected); Cocaine Screen,Urine Not Detected (NotDetected); Methadone Screen, Urine Not Detected (NotDetected); Opiate Screen,Urine Not Detected (NotDetected); Oxycodone Screen, Urine Not Detected (NotDetected); Phencyclidine Screen,Urine Not Detected (NotDetected); Tricyclic Antidepressant,Urine Not Detected (NotDetected); Urn Cannabinoid Scrn Not Detected (NotDetected)
[2022-07-10] MEDS ORDERED: IPRATROPIUM-ALBUTEROL 3 ML NEB INHALATION PRN (01:41)
[2022-07-10] MEDS ORDERED: FUROSEMIDE 10 MG/ML 4 ML VIAL IV STA (01:43)
[2022-07-10] MEDS ORDERED: LORazepam 2 MG/ML INJ IV STA ×2 (01:49→03:50)
--- NOTE | 2022-07-10 01:58 | ED ---
General Adult HPI - General Chief complaint: Altered Mental Status Stated complaint: Altered Mental Status Time Seen by Provider: 07/09/22 23:43 Source: EMS, RN notes reviewed, old records reviewed Mode of arrival: EMS Limitations: altered mental status - History of Present Illness Initial comments: Patient Is a 61-year-old female who presents emergency Department from home for altered mental status since about 10 AM. There is concern for possible UTI. Vital signs were normal for EMS. Patient presents lethargic. Was found to be hypoxic on room air with a poor waveform. Improved on nonrebreather to 90%'s. She is a limited historian at this time. Her is present and states that she has been more altered has a history of UTIs and was concerned that she may have a UTI. Does have a history of COPD. Per EMR, patient appears to also have a history of CHF. Unknown complaints of medications. Presents for further evaluation at this time. - Related Data Home Medications Medication Instructions Recorded Confirmed Cyclobenzaprine [Flexeril] 10 mg PO HS 07/11/14 03/20/22 traMADol HCl [Ultram] 50 mg PO Q6H PRN 07/11/14 03/20/22 Omeprazole [PriLOSEC] 20 mg PO DAILY 08/05/14 03/20/22 Fenofibrate 160 mg PO DAILY 05/27/16 03/20/22 allopurinoL [Allopurinol] 100 mg PO DAILY 05/27/16 03/20/22 Glimepiride [Amaryl] 8 mg PO DAILY 06/28/17 03/20/22 rOPINIRole HCL [Requip] 0.25 mg PO HS 06/02/18 03/20/22 Budesonide-Formot 160-4.5 Mcg 2 puff INHALATION RT-BID 02/23/19 03/20/22 [Symbicort 160-4.5 Mcg Inhaler] Atorvastatin [Lipitor] 80 mg PO HS 01/21/22 03/20/22 Empagliflozin [Jardiance] 25 mg PO DAILY 01/21/22 03/20/22 Ergocalciferol (Vitamin D2) 1,250 mcg PO MO 01/21/22 03/20/22 [Drisdol (50,000 Iu)] Losartan Potassium [Cozaar] 100 mg PO DAILY 01/21/22 03/20/22 Magnesium Oxide [Magox 400] 400 mg PO DAILY 01/21/22 03/20/22 Pregabalin [Lyrica] 150 mg PO BID 01/21/22 03/20/22 metFORMIN HCL [Glucophage] 1,000 mg PO BID 01/21/22 03/20/22 sitaGLIPtin PHOSPHATE [Januvia] 100 mg PO DAILY 01/21/22 03/20/22 Albuterol Sulfate [Proair Hfa] 2 puff INHALATION RT-Q6H PRN 03/20/22 03/20/22 Dulaglutide [Trulicity] 0.75 mg SQ TH 03/20/22 03/20/22 Furosemide [Lasix] 20 mg PO DAILY 03/20/22 03/20/22 Previous Rx's Medication Instructions Recorded HYDROcodone/APAP 7.5-325MG [[place] 1 tab PO Q4H PRN 3 Days #18 tab 03/20/22 7.5-325] Allergies Allergy/AdvReac Type Severity Reaction Status Date / Time codeine AdvReac Severe Abdominal Verified 03/20/22 21:57 Pain Review of Systems ROS Statement: Those systems with pertinent positive or pertinent negative responses have been documented in the HPI. ROS Other: All systems not noted in ROS Statement are negative. Past Medical History Past Medical History: COPD, Diabetes Mellitus, Eye Disorder, GERD/Reflux, Hyperlipidemia, Hypertension, Osteoarthritis (OA) Additional Past Medical History / Comment(s): Start of glaucoma. "Knees have been giving out." DDD. Stage 1 Emphysema, gout, lower back and left hip pain, History of Any Multi-Drug Resistant Organisms: None Reported Past Surgical History: Back Surgery, Section, Cholecystectomy, Tubal Li gation Additional Past Surgical History / Comment(s): MARBIN PLACED FOR SCOLIOSIS as child. mult left breast biopsy, Past Anesthesia/Blood Transfusion Reactions: No Reported Reaction Past Psychological History: No Psychological Hx Reported Smoking Status: Current every day smoker Past Alcohol Use History: None Reported Past Drug Use History: None Reported - Past Family History Brother(s) Family Medical History: Diabetes Mellitus Mother Family Medical History: Cancer Father Family Medical History: Cancer General Exam - General Exam Comments Initial Comments: General: Appears in no acute distress. HEAD: Normal with no signs of head trauma. EYES: PERRLA, EOMI, conjunctiva normal, no discharge. ENT: Hearing grossly intact, normal oropharynx. RESPIRATORY: Patient has bilateral end expiratory wheezing as well as some mild crackles at the lung bases bilateral lung marquez. Hypoxic on room air. Mild increased work of breathing. C/V: Mild tachycardia. S1 and S2 auscultated. 1+ pitting edema bilateral extremities. Peripheral pulses 2+ and intact. ABD: Abd is soft, nontender, nondistended EXT: Normal range of motion, no obvious deformity SKIN: No rashes or lesions observed on exposed skin. NEURO: Intermittently alert. Easily arouses to stimulation. GCS is currently 13. Easily arousable. Seems confused. Limitations: altered mental status Course Vital Signs 07/09/22 07/10/22 07/10/22 23:41 00:00 00:04 Temperature 98 F Pulse Rate 106 H 98 Pulse Rate [ Pulse Oximetery ] Respiratory 22 Rate Blood Pressure 109/81 Blood Pressure [Right Arm] O2 Sat by Pulse 90 L Oximetry Fraction of 40 Inspired Oxygen (FIO2) 07/10/22 07/10/22 07/10/22 00:14 00:15 00:24 Temperature Pulse Rate 96 92 92 Pulse Rate [ Pulse Oximetery ] Respiratory Rate Blood Pressure Blood Pressure [Right Arm] O2 Sat by Pulse Oximetry Fraction of Inspired Oxygen (FIO2) 07/10/22 07/10/22 07/10/22 01:08 03:08 03:50 Temperature Pulse Rate 93 90 Pulse Rate [ Pulse Oximetery ] Respiratory 20 20 Rate Blood Pressure 136/70 138/87 Blood Pressure [Right Arm] O2 Sat by Pulse 91 L 92 L Oximetry Fraction of 30 Inspired Oxygen (FIO2) 07/10/22 04:00 Temperature 97.7 F Pulse Rate Pulse Rate [ 94 Pulse Oximetery ] Respiratory 12 Rate Blood Pressure Blood Pressure 103/66 [Right Arm] O2 Sat by Pulse 92 L Oximetry Fraction of 30 Inspired Oxygen (FIO2) Medical Decision Making - Medical Decision Making Based on the patient's presentation and physical exam, I am concerned for cardiopulmonary etiology for her current symptoms. Cannot rule out UTI. We'll obtain broad workup. Patient was immediately placed on BiPAP when I was notified of her hypoxia. She responded well. Goal SpO2 will be between 90 and 92% to continue respiratory drive over concern for COPD exacerbation. Per family, she is normally is not on oxygen at home. She does have it as needed but does not use it. She'll be given IV steroids as well as breathing treatments. Family was in agreement this plan. EKG shows sinus tachycardia with no signs of acute ischemia. Chest x-ray shows bilateral infiltrates versus possible acute heart failure. Laboratory studies remarkable for a mild leukocytosis of 13. Platelet count is slightly elevated 503. VBG shows an elevated pCO2 to 66. BNP is elevated to 6700. Troponin is undetectable. Urinalysis is remarkable for a UTI. On reevaluation, patient's breathing is somewhat improved. Wheezing is somewhat improved. GCS remains proximately 13. CT imaging still pending at this time. We will obtain an abg.CT imaging showed no acute intracranial process. GCS remains unchanged. She is somewhat redirectable. ABG following a few hours on BiPAP shows some improvement in her CO2. There is some hypoxia, however patient did remove her mastering ABG draw. Could be related to this. We'll continue to monitor. She is saturating well. She will continue treatment for CHF and COPD. Discussed with the and he was in agreement this plan. We'll continue BiPAP therapy at this time. Vital signs remained within normal limits on BiPAP. She'll be admitted to stepdown. Cardiology is consulted. Pulmonology on-call, Dr. Esquivel is consulted. I spoke with the admitting physician, Dr. Deras who accepted the patient. Patient was admitted in serious condition to stepdown. - Lab Data Result diagrams: 07/10/22 00:14 07/10/22 00:14 Lab Results 07/10/22 07/10/22 07/10/22 Range/Units 00:14 00:14 00:14 WBC 13.1 H (3.8-10.6) k/uL RBC 4.82 (3.80-5.40) m/uL Hgb 12.4 (11.4-16.0) gm/dL Hct 40.6 (34.0-46.0) % MCV 84.4 (80.0-100.0) fL MCH 25.7 (25.0-35.0) pg MCHC 30.4 L (31.0-37.0) g/dL RDW 16.6 H (11.5-15.5) % Plt Count 503 H (150-450) k/uL MPV 9.6 Neutrophils % 76 % Lymphocytes % 15 % Monocytes % 7 % Eosinophils % 0 % Basophils % 1 % Neutrophils # 10.0 H (1.3-7.7) k/uL Lymphocytes # 1.9 (1.0-4.8) k/uL Monocytes # 0.9 (0-1.0) k/uL Eosinophils # 0.0 (0-0.7) k/uL Basophils # 0.1 (0-0.2) k/uL Hypochromasia Marked Poikilocytosis Slight Anisocytosis Slight PT 13.3 H (9.0-12.0) sec INR 1.3 H (<1.2) APTT 23.5 (22.0-30.0) sec D-Dimer 0.29 (<0.60) mg/L FEU Sample Site ABG pH (7.35-7.45) ABG pCO2 (35-45) mmHg ABG pO2 (83-108) mmHg ABG HCO3 (21-25) mmol/L ABG Total CO2 (19-24) mmol/L ABG O2 Saturation (94-97) % ABG Base Excess mmol/L ABG Hematocrit (34.0-46.0) % Dirk Test VBG pH (7.31-7.41) VBG pCO2 (37-51) mmHg VBG HCO3 (24-28) mmol/L Hemoglobin (11.4-16.0) gm/dL FiO2 % Sodium 143 (137-145) mmol/L Potassium 4.0 (3.5-5.1) mmol/L Chloride 92 L (98-107) mmol/L Carbon Dioxide 35 H (22-30) mmol/L Anion Gap 16 mmol/L BUN 28 H (7-17) mg/dL Creatinine 0.98 (0.52-1.04) mg/dL Est GFR (CKD-EPI)AfAm 71 (>60 ml/min/1.73 sqM) Est GFR (CKD-EPI)NonAf 62 (>60 ml/min/1.73 sqM) Glucose 213 H (74-99) mg/dL Plasma Lactic Acid Jon (0.7-2.0) mmol/L Calcium 8.5 (8.4-10.2) mg/dL Total Bilirubin 0.3 (0.2-1.3) mg/dL AST 49 H (14-36) U/L ALT 20 (4-34) U/L Alkaline Phosphatase 70 (38-126) U/L Ammonia (<30) umol/L Troponin I (0.000-0.034) ng/mL NT-Pro-B Natriuret Pep pg/mL Total Protein 6.1 L (6.3-8.2) g/dL Albumin 3.6 (3.5-5.0) g/dL Urine Color Urine Appearance (Clear) Urine pH (5.0-8.0) Ur Specific [place] (1.001-1.035) Urine Protein (Negative) Urine Glucose (UA) (Negative) Urine Ketones (Negative) Urine Blood (Negative) Urine Nitrite (Negative) Urine Bilirubin (Negative) Urine Urobilinogen (<2.0) mg/dL Ur Leukocyte Esterase (Negative) Urine RBC (0-5) /hpf Urine WBC (0-5) /hpf Urine Bacteria (None) /hpf Urine Opiates Screen (NotDetected) Ur Oxycodone Screen (NotDetected) Urine Methadone Screen (NotDetected) Ur Propoxyphene Screen (NotDetected) Ur Barbiturates Screen (NotDetected) U Tricyclic Antidepress (NotDetected) Ur Phencyclidine Scrn (NotDetected) Ur Amphetamines Screen (NotDetected) U Methamphetamines Scrn (NotDetected) U Benzodiazepines Scrn (NotDetected) Urine Cocaine Screen (NotDetected) U Marijuana (THC) Screen (NotDetected) Serum Alcohol <10 mg/dL Coronavirus (PCR) (Not Detectd) Influenza Type A RNA (Not Detectd) Influenza Type B (PCR) (Not Detectd) 07/10/22 07/10/22 07/10/22 Range/Units 00:14 00:14 00:14 WBC (3.8-10.6) k/uL RBC (3.80-5.40) m/uL Hgb (11.4-16.0) gm/dL Hct (34.0-46.0) % MCV (80.0-100.0) fL MCH (25.0-35.0) pg MCHC (31.0-37.0) g/dL RDW (11.5-15.5) % Plt Count (150-450) k/uL MPV Neutrophils % % Lymphocytes % % Monocytes % % Eosinophils % % Basophils % % Neutrophils # (1.3-7.7) k/uL Lymphocytes # (1.0-4.8) k/uL Monocytes # (0-1.0) k/uL Eosinophils # (0-0.7) k/uL Basophils # (0-0.2) k/uL Hypochromasia Poikilocytosis Anisocytosis PT (9.0-12.0) sec INR (<1.2) APTT (22.0-30.0) sec D-Dimer (<0.60) mg/L FEU Sample Site ABG pH (7.35-7.45) ABG pCO2 (35-45) mmHg ABG pO2 (83-108) mmHg ABG HCO3 (21-25) mmol/L ABG Total CO2 (19-24) mmol/L ABG O2 Saturation (94-97) % ABG Base Excess mmol/L ABG Hematocrit (34.0-46.0) % Dirk Test VBG pH 7.38 (7.31-7.41) VBG pCO2 66 H (37-51) mmHg VBG HCO3 38 H (24-28) mmol/L Hemoglobin (11.4-16.0) gm/dL FiO2 % Sodium (137-145) mmol/L Potassium (3.5-5.1) mmol/L Chloride (98-107) mmol/L Carbon Dioxide (22-30) mmol/L Anion Gap mmol/L BUN (7-17) mg/dL Creatinine (0.52-1.04) mg/dL Est GFR (CKD-EPI)AfAm (>60 ml/min/1.73 sqM) Est GFR (CKD-EPI)NonAf (>60 ml/min/1.73 sqM) Glucose (74-99) mg/dL Plasma Lactic Acid Jon 1.2 (0.7-2.0) mmol/L Calcium (8.4-10.2) mg/dL Total Bilirubin (0.2-1.3) mg/dL AST (14-36) U/L ALT (4-34) U/L Alkaline Phosphatase (38-126) U/L Ammonia <9 (<30) umol/L Troponin I <0.012 (0.000-0.034) ng/mL NT-Pro-B Natriuret Pep pg/mL Total Protein (6.3-8.2) g/dL Albumin (3.5-5.0) g/dL Urine Color Urine Appearance (Clear) Urine pH (5.0-8.0) Ur Specific [place] (1.001-1.035) Urine Protein (Negative) Urine Glucose (UA) (Negative) Urine Ketones (Negative) Urine Blood (Negative) Urine Nitrite (Negative) Urine Bilirubin (Negative) Urine Urobilinogen (<2.0) mg/dL Ur Leukocyte Esterase (Negative) Urine RBC (0-5) /hpf Urine WBC (0-5) /hpf Urine Bacteria (None) /hpf Urine Opiates Screen (NotDetected) Ur Oxycodone Screen (NotDetected) Urine Methadone Screen (NotDetected) Ur Propoxyphene Screen (NotDetected) Ur Barbiturates Screen (NotDetected) U Tricyclic Antidepress (NotDetected) Ur Phencyclidine Scrn (NotDetected) Ur Amphetamines Screen (NotDetected) U Methamphetamines Scrn (NotDetected) U Benzodiazepines Scrn (NotDetected) Urine Cocaine Screen (NotDetected) U Marijuana (THC) Screen (NotDetected) Serum Alcohol mg/dL Coronavirus (PCR) (Not Detectd) Influenza Type A RNA (Not Detectd) Influenza Type B (PCR) (Not Detectd) 07/10/22 07/10/22 07/10/22 Range/Units 00:14 00:29 00:29 WBC (3.8-10.6) k/uL RBC (3.80-5.40) m/uL Hgb (11.4-16.0) gm/dL Hct (34.0-46.0) % MCV (80.0-100.0) fL MCH (25.0-35.0) pg MCHC (31.0-37.0) g/dL RDW (11.5-15.5) % Plt Count (150-450) k/uL MPV Neutrophils % % Lymphocytes % % Monocytes % % Eosinophils % % Basophils % % Neutrophils # (1.3-7.7) k/uL Lymphocytes # (1.0-4.8) k/uL Monocytes # (0-1.0) k/uL Eosinophils # (0-0.7) k/uL Basophils # (0-0.2) k/uL Hypochromasia Poikilocytosis Anisocytosis PT (9.0-12.0) sec INR (<1.2) APTT (22.0-30.0) sec D-Dimer (<0.60) mg/L FEU Sample Site ABG pH (7.35-7.45) ABG pCO2 (35-45) mmHg ABG pO2 (83-108) mmHg ABG HCO3 (21-25) mmol/L ABG Total CO2 (19-24) mmol/L ABG O2 Saturation (94-97) % ABG Base Excess mmol/L ABG Hematocrit (34.0-46.0) % Dirk Test VBG pH (7.31-7.41) VBG pCO2 (37-51) mmHg VBG HCO3 (24-28) mmol/L Hemoglobin (11.4-16.0) gm/dL FiO2 % Sodium (137-145) mmol/L Potassium (3.5-5.1) mmol/L Chloride (98-107) mmol/L Carbon Dioxide (22-30) mmol/L Anion Gap mmol/L BUN (7-17) mg/dL Creatinine (0.52-1.04) mg/dL Est GFR (CKD-EPI)AfAm (>60 ml/min/1.73 sqM) Est GFR (CKD-EPI)NonAf (>60 ml/min/1.73 sqM) Glucose (74-99) mg/dL Plasma Lactic Acid Jon (0.7-2.0) mmol/L Calcium (8.4-10.2) mg/dL Total Bilirubin (0.2-1.3) mg/dL AST (14-36) U/L ALT (4-34) U/L Alkaline Phosphatase (38-126) U/L Ammonia (<30) umol/L Troponin I (0.000-0.034) ng/mL NT-Pro-B Natriuret Pep 6690 pg/mL Total Protein (6.3-8.2) g/dL Albumin (3.5-5.0) g/dL Urine Color Light Yellow Urine Appearance Cloudy H (Clear) Urine pH 7.5 (5.0-8.0) Ur Specific [place] 1.019 (1.001-1.035) Urine Protein Trace H (Negative) Urine Glucose (UA) 4+ H (Negative) Urine Ketones 1+ H (Negative) Urine Blood Negative (Negative) Urine Nitrite Negative (Negative) Urine Bilirubin Negative (Negative) Urine Urobilinogen <2.0 (<2.0) mg/dL Ur Leukocyte Esterase Large H (Negative) Urine RBC 7 H (0-5) /hpf Urine WBC 110 H (0-5) /hpf Urine Bacteria Few H (None) /hpf Urine Opiates Screen Not Detected (NotDetected) Ur Oxycodone Screen Not Detected (NotDetected) Urine Methadone Screen Not Detected (NotDetected) Ur Propoxyphene Screen Not Detected (NotDetected) Ur Barbiturates Screen Not Detected (NotDetected) U Tricyclic Antidepress Not Detected (NotDetected) Ur Phencyclidine Scrn Not Detected (NotDetected) Ur Amphetamines Screen Not Detected (NotDetected) U Methamphetamines Scrn Not Detected (NotDetected) U Benzodiazepines Scrn Not Detected (NotDetected) Urine Cocaine Screen Not Detected (NotDetected) U Marijuana (THC) Screen Not Detected (NotDetected) Serum Alcohol mg/dL Coronavirus (PCR) (Not Detectd) Influenza Type A RNA Not Detected (Not Detectd) Influenza Type B (PCR) Not Detected (Not Detectd) 07/10/22 07/10/22 Range/Units 00:29 02:05 WBC (3.8-10.6) k/uL RBC (3.80-5.40) m/uL Hgb (11.4-16.0) gm/dL Hct (34.0-46.0) % MCV (80.0-100.0) fL MCH (25.0-35.0) pg MCHC (31.0-37.0) g/dL RDW (11.5-15.5) % Plt Count (150-450) k/uL MPV Neutrophils % % Lymphocytes % % Monocytes % % Eosinophils % % Basophils % % Neutrophils # (1.3-7.7) k/uL Lymphocytes # (1.0-4.8) k/uL Monocytes # (0-1.0) k/uL Eosinophils # (0-0.7) k/uL Basophils # (0-0.2) k/uL Hypochromasia Poikilocytosis Anisocytosis PT (9.0-12.0) sec INR (<1.2) APTT (22.0-30.0) sec D-Dimer (<0.60) mg/L FEU Sample Site Right Radial ABG pH 7.39 (7.35-7.45) ABG pCO2 62 H (35-45) mmHg ABG pO2 80 L (83-108) mmHg ABG HCO3 38 H (21-25) mmol/L ABG Total CO2 39 H (19-24) mmol/L ABG O2 Saturation 95.4 (94-97) % ABG Base Excess 12.6 mmol/L ABG Hematocrit 37 (34.0-46.0) % Dirk Test Yes VBG pH (7.31-7.41) VBG pCO2 (37-51) mmHg VBG HCO3 (24-28) mmol/L Hemoglobin 12.2 (11.4-16.0) gm/dL FiO2 40 % Sodium (137-145) mmol/L Potassium (3.5-5.1) mmol/L Chloride (98-107) mmol/L Carbon Dioxide (22-30) mmol/L Anion Gap mmol/L BUN (7-17) mg/dL Creatinine (0.52-1.04) mg/dL Est GFR (CKD-EPI)AfAm (>60 ml/min/1.73 sqM) Est GFR (CKD-EPI)NonAf (>60 ml/min/1.73 sqM) Glucose (74-99) mg/dL Plasma Lactic Acid Jon (0.7-2.0) mmol/L Calcium (8.4-10.2) mg/dL Total Bilirubin (0.2-1.3) mg/dL AST (14-36) U/L ALT (4-34) U/L Alkaline Phosphatase (38-126) U/L Ammonia (<30) umol/L Troponin I (0.000-0.034) ng/mL NT-Pro-B Natriuret Pep pg/mL Total Protein (6.3-8.2) g/dL Albumin (3.5-5.0) g/dL Urine Color Urine Appearance (Clear) Urine pH (5.0-8.0) Ur Specific [place] (1.001-1.035) Urine Protein (Negative) Urine Glucose (UA) (Negative) Urine Ketones (Negative) Urine Blood (Negative) Urine Nitrite (Negative) Urine Bilirubin (Negative) Urine Urobilinogen (<2.0) mg/dL Ur Leukocyte Esterase (Negative) Urine RBC (0-5) /hpf Urine WBC (0-5) /hpf Urine Bacteria (None) /hpf Urine Opiates Screen (NotDetected) Ur Oxycodone Screen (NotDetected) Urine Methadone Screen (NotDetected) Ur Propoxyphene Screen (NotDetected) Ur Barbiturates Screen (NotDetected) U Tricyclic Antidepress (NotDetected) Ur Phencyclidine Scrn (NotDetected) Ur Amphetamines Screen (NotDetected) U Methamphetamines Scrn (NotDetected) U Benzodiazepines Scrn (NotDetected) Urine Cocaine Screen (NotDetected) U Marijuana (THC) Screen (NotDetected) Serum Alcohol mg/dL Coronavirus (PCR) Not Detected (Not Detectd) Influenza Type A RNA (Not Detectd) Influenza Type B (PCR) (Not Detectd) - EKG Data -: EKG Interpreted by Me EKG Comments: 12-lead Electrocardiogram Interpretation Note EKG was reviewed and interpreted by myself. 12-lead ECG performed at 2338 is interpreted by me as revealing sinus tachycardia with occasional supraventricular complex. At a rate of 107 beats per minute. Minerva is normal. PA interval is 175 ms, QRS duration is 87 ms, CT she is 407 ms.. There were no ST or T wave abnormalities to suggest myocardial ischemia or injury. R wave progression across the precordium was satisfactory. By my interpretation this EKG is non-diagnostic for acute ischemia. Critical Care Time Critical Care Time: Yes Total Critical Care Time: 35 Critical Care Time: Upon my evaluation, this patient had a high probability of imminent or life- threatening deterioration due to hypoxic respiratory failure, CHF, COPD, UTI, CO2 narcosis, which required my direct attention, intervention, and personal management. I have personally provided 35 minutes of critical care time exclusive of time spent on separately billable procedures. Time includes review of laboratory data, radiology results, discussion with consultants, and monitoring for potential decompensation. Interventions were performed as documented in my note. Disposition Clinical Impression: COPD (chronic obstructive pulmonary disease), CHF (congestive heart failure), UTI (urinary tract infection), CO2 narcosis, Acute respiratory failure with hypoxia Disposition: ADMITTED IP TO THIS HOSP Condition: Serious Time of Disposition: 02:20
[2022-07-10 02:09] LABS: ABG Base Excess 12.6 mmol/L; ABG HCO3 38 mmol/L (21-25); ABG Hematocrit 37 % (34.0-46.0); ABG Oxygen Saturation 95.4 % (94-97); ABG PCO2 62 mmHg (35-45); ABG PH 7.39 (7.35-7.45); ABG PO2 80 mmHg (83-108); ABG TCO2 39 mmol/L (19-24); Allen Test Performed? Yes
--- NOTE | 2022-07-10 02:09 | CT ---
EXAMINATION TYPE: CT brain wo con DATE OF EXAM: 07/10/2022 COMPARISON: None HISTORY: Altered mental status CT DLP: 1096.4 mGycm Automated exposure control for dose reduction was used. Images of the brain obtained with no contrast. Ventricles and sulci appear normal. There is no mass effect or midline shift. No sign of intracranial hemorrhage. The calvarium is intact. There is normal aeration of the mastoid sinuses. The skull base is intact. IMPRESSION: Negative CT scan of the brain.
[2022-07-10] MEDS ORDERED: NALOXONE 0.4 MG/ML 1 ML VIAL IV PRN (02:52)
[2022-07-10] MEDS: SYMBICORT 160-4.5 MCG INHALER INHALATION SCH ×2 (07:17→20:57)
[2022-07-10] MEDS: IPRATROPIUM-ALBUTEROL 3 ML NEB INHALATION PRN ×4 (07:17→20:57)
[2022-07-10] MEDS: NON FORMULARY DRUG (Empagliflozin [Jardiance] 25 MG Tablet) PO SCH (08:54)
[2022-07-10] MEDS: GLIMEPIRIDE 4 MG TAB PO SCH (08:55)
[2022-07-10] MEDS: metFORMIN 500 MG TAB PO SCH ×2 (08:55→20:27)
[2022-07-10] MEDS: LINAGLIPTIN 5 MG TABLET PO SCH (08:55)
[2022-07-10] MEDS: FUROSEMIDE 10 MG/ML 4 ML VIAL IV SCH ×2 (09:11→20:28)
[2022-07-10] MEDS: HEPARIN SODIUM,PORCINE/PF 5,000 UNIT/0.5 ML SYRINGE SQ SCH ×2 (09:11→16:44)
[2022-07-10 10:35] LABS: Glucose,Whole Blood 221 mg/dL (70-110)
--- NOTE | 2022-07-10 11:27 | P.CRDCN ---
History of Present Illness History of present illness: This is Dr. Miller dictating a consult on this patient Cardiology consult placed on this patient with mental status changes, obtunded state and hypoxemia with normal cardiac enzymes and normal EKG IMPRESSION / ASSESSMENT: Altered mental status, no history available ER note states that the patient was lethargic and hypoxic and has an altered mentation Chest x-ray suggests increased interstitial markings ABG confirms hypoxemia Twelve-lead EKG shows sinus tachycardia no ST segment abnormalities normal [place] narrow QRS Elevated white count hemoglobin of 12.4 Normal cardiac enzyme PLAN: This patient has altered mental status and was hypoxic Cardiac enzymes are normal EKG is normal BNP is elevated While a 2-D echo may be performed it does not explain her altered mental status nor does explain her hypoxemia Would recommend workup of the above Will sign off HPI Patient came in with altered mental status and hypoxia ROS: No fever chills or rigors, no cough, phlegm or expectoration, no nausea, vomiting or diarrhea, no hematuria, dysuria, no musculoskeletal complaints, no strokes or seizures, no skin lesions. EXAMINATION: Reduced air entry bilaterally no rhonchi Heart sounds are normal Patient is obtunded REVIEW OF LABS, ECG & MEDICAL DATA Normal cardiac enzymes No ECG abnormalities BNP is elevated Past Medical History Past Medical History: COPD, Diabetes Mellitus, Eye Disorder, GERD/Reflux, Hyperlipidemia, Hypertension, Osteoarthritis (OA) Additional Past Medical History / Comment(s): Start of glaucoma. "Knees have been giving out." DDD. Stage 1 Emphysema, gout, lower back and left hip pain, History of Any Multi-Drug Resistant Organisms: None Reported Past Surgical History: Back Surgery, Section, Cholecystectomy, Tubal Ligation Additional Past Surgical History / Comment(s): MARBIN PLACED FOR SCOLIOSIS as child. mult left breast biopsy, Past Anesthesia/Blood Transfusion Reactions: No Reported Reaction Past Psychological History: No Psychological Hx Reported Smoking Status: Current every day smoker Past Alcohol Use History: None Reported Past Drug Use History: None Reported - Past Family History Brother(s) Family Medical History: Diabetes Mellitus Mother Family Medical History: Cancer Father Family Medical History: Cancer Medications and Allergies Home Medications Medication Instructions Recorded Confirmed Type Cyclobenzaprine [Flexeril] 10 mg PO HS 07/11/14 03/20/22 History traMADol HCl [Ultram] 50 mg PO Q6H PRN 07/11/14 03/20/22 History Omeprazole [PriLOSEC] 20 mg PO DAILY 08/05/14 03/20/22 History Fenofibrate 160 mg PO DAILY 05/27/16 03/20/22 History allopurinoL [Allopurinol] 100 mg PO DAILY 05/27/16 03/20/22 History Glimepiride [Amaryl] 8 mg PO DAILY 06/28/17 03/20/22 History rOPINIRole HCL [Requip] 0.25 mg PO HS 06/02/18 03/20/22 History Budesonide-Formot 160-4.5 Mcg 2 puff INHALATION RT-BID 02/23/19 03/20/22 History [Symbicort 160-4.5 Mcg Inhaler] Atorvastatin [Lipitor] 80 mg PO HS 01/21/22 03/20/22 History Empagliflozin [Jardiance] 25 mg PO DAILY 01/21/22 03/20/22 History Ergocalciferol (Vitamin D2) 1,250 mcg PO MO 01/21/22 03/20/22 History [Drisdol (50,000 Iu)] Losartan Potassium [Cozaar] 100 mg PO DAILY 01/21/22 03/20/22 History Magnesium Oxide [Magox 400] 400 mg PO DAILY 01/21/22 03/20/22 History Pregabalin [Lyrica] 150 mg PO BID 01/21/22 03/20/22 History metFORMIN HCL [Glucophage] 1,000 mg PO BID 01/21/22 03/20/22 History sitaGLIPtin PHOSPHATE [Januvia] 100 mg PO DAILY 01/21/22 03/20/22 History Albuterol Sulfate [Proair Hfa] 2 puff INHALATION RT-Q6H PRN 03/20/22 03/20/22 History Dulaglutide [Trulicity] 0.75 mg SQ TH 03/20/22 03/20/22 History Furosemide [Lasix] 20 mg PO DAILY 03/20/22 03/20/22 History HYDROcodone/APAP 7.5-325MG [[place] 1 tab PO Q4H PRN 3 Days #18 tab 03/20/22 Rx 7.5-325] Allergies Allergy/AdvReac Type Severity Reaction Status Date / Time codeine AdvReac Severe Abdominal Verified 03/20/22 21:57 Pain Physical Exam Vitals: Vital Signs Temp Pulse Pulse Resp BP BP Pulse Ox 07/10/22 08:00 98.0 F 103 H 14 125/74 89 L 07/10/22 07:31 97 07/10/22 07:17 99 07/10/22 04:00 97.7 F 94 12 103/66 92 L 07/10/22 03:50 07/10/22 03:08 90 20 138/87 92 L 07/10/22 01:08 93 20 136/70 91 L 07/10/22 00:24 92 07/10/22 00:15 92 07/10/22 00:14 96 07/10/22 00:04 98 07/10/22 00:00 07/09/22 23:41 98 F 106 H 22 109/81 90 L FiO2 07/10/22 08:00 30 07/10/22 07:31 07/10/22 07:17 30 07/10/22 04:00 30 07/10/22 03:50 30 07/10/22 03:08 07/10/22 01:08 07/10/22 00:24 07/10/22 00:15 07/10/22 00:14 07/10/22 00:04 07/10/22 00:00 40 07/09/22 23:41 Intake and Output 07/09/22 07/10/22 07/10/22 22:59 06:59 14:59 Output Total 1000 Balance -1000 Output: Urine 1000 Other: Voiding Method External Catheter External Catheter Weight 81.647 kg Results 07/10/22 00:14 07/10/22 00:14 Cardiac Enzymes 07/10/22 07/10/22 07/10/22 Range/Units 00:14 00:14 04:18 AST 49 H (14-36) U/L Troponin I <0.012 <0.012 (0.000-0.034) ng/mL 07/10/22 Range/Units 07:41 AST (14-36) U/L Troponin I <0.012 (0.000-0.034) ng/mL Coagulation 07/10/22 Range/Units 00:14 PT 13.3 H (9.0-12.0) sec APTT 23.5 (22.0-30.0) sec CBC 07/10/22 Range/Units 00:14 WBC 13.1 H (3.8-10.6) k/uL RBC 4.82 (3.80-5.40) m/uL Hgb 12.4 (11.4-16.0) gm/dL Hct 40.6 (34.0-46.0) % Plt Count 503 H (150-450) k/uL Comprehensive Metabolic Panel 07/10/22 Range/Units 00:14 Sodium 143 (137-145) mmol/L Potassium 4.0 (3.5-5.1) mmol/L Chloride 92 L (98-107) mmol/L Carbon Dioxide 35 H (22-30) mmol/L BUN 28 H (7-17) mg/dL Creatinine 0.98 (0.52-1.04) mg/dL Glucose 213 H (74-99) mg/dL Calcium 8.5 (8.4-10.2) mg/dL AST 49 H (14-36) U/L ALT 20 (4-34) U/L Alkaline Phosphatase 70 (38-126) U/L Total Protein 6.1 L (6.3-8.2) g/dL Albumin 3.6 (3.5-5.0) g/dL Current Medications Generic Name Dose Route Start Last Admin Trade Name Freq PRN Reason Stop Dose Admin Albuterol/Ipratropium 3 ml 07/10/22 02:20 07/10/22 07:17 Ipratropium-Albuterol 3 Ml Neb INHALATION 3 ml RT-Q4H PRN Administration Shortness Of Breath Or Wheezing Atorvastatin Calcium 80 mg 07/10/22 21:00 Atorvastatin 80 Mg Tab PO HS HAYDEN Budesonide/Formoterol Fumarate 2 puff 07/10/22 08:00 07/10/22 07:17 Symbicort 160-4.5 Mcg Inhaler INHALATION 2 puff RT-BID HAYDEN Administration Furosemide 40 mg 07/10/22 09:00 07/10/22 09:11 Furosemide 10 Mg/Ml 4 Ml Vial IV 40 mg Q12HR HAYDEN Administration Glimepiride 8 mg 07/10/22 09:00 07/10/22 08:55 Glimepiride 4 Mg Tab PO Not Given DAILY HAYDEN Heparin Sodium (Porcine) 5,000 unit 07/10/22 08:00 07/10/22 09:11 Heparin Sodium,Porcine/Pf 5,000 Unit/0.5 Ml Syringe SQ 5,000 unit Q8HR HAYDEN Administration Ceftriaxone Sodium 2 gm/ 50 mls @ 100 mls/hr 07/11/22 03:00 Sodium Chloride IVPB Q24H HAYDEN Protocol Linagliptin 5 mg 07/10/22 09:00 07/10/22 08:55 Linagliptin 5 Mg Tablet PO Not Given DAILY HAYDEN Metformin HCl 1,000 mg 07/10/22 09:00 07/10/22 08:55 Metformin 500 Mg Tab PO Not Given BID HAYDEN Naloxone HCl 0.2 mg 07/10/22 02:52 Naloxone 0.4 Mg/Ml 1 Ml Vial IV Q2M PRN Opioid Reversal Non-Formulary Medication 0.75 mg 07/15/22 09:00 Dulaglutide [Trulicity] SQ Th@0900 HAYDEN Non-Formulary Medication 25 mg 07/10/22 09:00 07/10/22 08:54 Empagliflozin [Jardiance] PO Not Given DAILY HAYDEN Intake and Output 07/09/22 07/10/22 07/10/22 22:59 06:59 14:59 Output Total 1000 Balance -1000 Output: Urine 1000 Other: Voiding Method External Catheter External Catheter Weight 81.647 kg 07/10/22 00:14 07/10/22 00:14
--- NOTE | 2022-07-10 12:34 | CA ---
Transthoracic Echo Report Name: Aundrea Bustillo Age: 61 Gender: F : 1960 Exam Date: 07/10/2022 08:20 Exam Location: [facility] Ht (in): 65 Wt (lb): 180 Ordering Physician: Talib Perez MD Attending/Referring Phys: Line Department Supervisor Katya Mann RDCS Procedure CPT: Indications: chf Cardiac Hx: Technical Quality: Very technically difficult study Contrast 1: Lumason Total Dose (mL): 3 Contrast 2: Total Dose (mL): MEASUREMENTS (Male / Female) Normal Values M-MODE Aortic Root Diameter MM 3.9 cm FINDINGS Left Ventricle Normal left ventricular size, wall thickness, systolic function with no obvious regional wall motion abnormalities. Right Ventricle The right ventricle is normal in size and function. Right Atrium Right atrium not well visualized. Left Atrium Left atrium not well visualized. Mitral Valve Mitral valve not well visualized. Aortic Valve Aortic valve not well visualized. Tricuspid Valve Tricuspid valve not well visualized. Pulmonic Valve Pulmonic valve not well visualized. Pericardium Aorta CONCLUSIONS Hyperdynamic LV function, ejection fraction greater than 65% Previewed by: Dr. Louis Miller MD (Electronically Signed) Final Date: 10 July 2022 12:33
--- NOTE | 2022-07-10 13:57 | P.CNPUL ---
History of Present Illness Consult date: 07/10/22 Reason for consult: dyspnea History of present illness: 61-year-old female patient, presented emergency department because of altered mental status. UTI was suspected as the patient was having some altered mentation and lethargy. In the ED, the patient was also found to have increased shortness of breath and the patient was also hypoxemic initially placed on a nonrebreather facemask to bring his saturation above 90%. The patient's is know n to me. The patient is known to have COPD. Nevertheless, the patient does not use oxygen at home. Nausea CHF and the chest x-ray showing some increased interstitial markings bilaterally consistent with underlying CHF and combination with COPD. Patient was taken off the nonrebreather facemask and the patient was given BiPAP at a pressure of 12/5 cm of water. The patient was given bronchodilators. The patient was given diuretics and currently she is on 4 L of O2 nasal cannula. She is feeling better. She is awake and alert and following commands and answering questions. Denies having any angina or palpitation. No fever or chills. The blood work was done yesterday showed abnormal UA consistent with possible UTI. Urine drug screen was negative. The blood gas showed a pH of 7.39 with a pCO2 of 62 and pO2 of 80 and this was done and FiO2 of 40% while being on BiPAP. The patient was a causative 13.1 with hemoglobin 12.4. Platelet count is at 503. The patient also had a sodium level of 143, BUN of 28 with a creatinine of 0.9, glucose is at 213, proBNP level is at 6690 and LFTs are essentially within normal limits. And a CAT scan of the brain showed no acute abnormalities and the patient does not have any focal neurological deficits for now. Review of Systems Constitutional: Reports fatigue, Reports weight gain Eyes: denies as per HPI, denies blurred vision, denies bulging eye, denies decreased vision, denies diplopia, denies discharge, denies dry eye, denies irritation, denies itching, denies pain, denies photophobia, denies loss of peripheral vision, denies loss of vision, denies tunnel vision/blind spots Ears: deny: decreased hearing, ear discharge, earache, tinnitus Ears, nose, mouth and throat: Reports as per HPI Breasts: absent: as per HPI, change in shape, gynecomastia, masses, nipple d ischarge, pain, skin changes, swelling Respiratory: Reports cough, Reports dyspnea Gastrointestinal: Reports as per HPI Genitourinary: Reports as per HPI Menstruation: Reports as per HPI Musculoskeletal: Reports as per HPI Musculoskeletal: bilateral: ankle swelling, absent: ankle pain, ankle stiffness Integumentary: Reports as per HPI Neurological: Reports as per HPI Psychiatric: Reports as per HPI Endocrine: Reports as per HPI Hematologic/Lymphatic: Reports as per HPI Allergic/Immunologic: Reports as per HPI Constitutional: Reports fatigue, Reports fever, Reports lethargy, Reports poor appetite, Reports weakness Eyes: denies as per HPI, denies blurred vision, denies bulging eye, denies decreased vision, denies diplopia, denies discharge, denies dry eye, denies irritation, denies itching, denies pain, denies photophobia, denies loss of pe ripheral vision, denies loss of vision, denies tunnel vision/blind spots Ears: deny: decreased hearing, ear discharge, earache, tinnitus Ears, nose, mouth and throat: Reports as per HPI Breasts: absent: as per HPI, change in shape, gynecomastia, masses, nipple discharge, pain, skin changes, swelling Cardiovascular: Reports decreased exercise tolerance, Reports dyspnea on exertion, Reports shortness of breath Respiratory: Reports dyspnea Gastrointestinal: Reports as per HPI Genitourinary: Reports as per HPI Menstruation: Reports as per HPI Musculoskeletal: Reports as per HPI Musculoskeletal: absent: ankle pain, ankle stiffness, ankle swelling Integumentary: Reports as per HPI Neurological: Reports as per HPI, Reports weakness Psychiatric: Reports as per HPI Endocrine: Reports as per HPI, Reports fatigue Hematologic/Lymphatic: Reports as per HPI Allergic/Immunologic: Reports as per HPI Past Medical History Past Medical History: COPD, Diabetes Mellitus, Eye Disorder, GERD/Reflux, Hyperlipidemia, Hypertension, Osteoarthritis (OA) Additional Past Medical History / Comment(s): Start of glaucoma. "Knees have been giving out." DDD. Stage 1 Emphysema, gout, lower back and left hip pain, History of Any Multi-Drug Resistant Organisms: None Reported Past Surgical History: Back Surgery, Section, Cholecystectomy, Tubal Ligation Additional Past Surgical History / Comment(s): MARBIN PLACED FOR SCOLIOSIS as child. mult left breast biopsy, Past Anesthesia/Blood Transfusion Reactions: No Reported Reaction Past Psychological History: No Psychological Hx Reported Smoking Status: Current every day smoker Past Alcohol Use History: None Reported Past Drug Use History: None Reported - Past Family History Brother(s) Family Medical History: Diabetes Mellitus Mother Family Medical History: Cancer Father Family Medical History: Cancer Medications and Allergies Home Medications Medication Instructions Recorded Confirmed Type Cyclobenzaprine [Flexeril] 10 mg PO HS 07/11/14 07/10/22 History traMADol HCl [Ultram] 50 mg PO Q6H PRN 07/11/14 07/10/22 History Omeprazole [PriLOSEC] 20 mg PO DAILY 08/05/14 07/10/22 History Fenofibrate 160 mg PO DAILY 05/27/16 07/10/22 History allopurinoL [Allopurinol] 100 mg PO DAILY 05/27/16 07/10/22 History Glimepiride [Amaryl] 8 mg PO DAILY 06/28/17 07/10/22 History rOPINIRole HCL [Requip] 0.25 mg PO HS 06/02/18 07/10/22 History Atorvastatin [Lipitor] 80 mg PO HS 01/21/22 07/10/22 History Empagliflozin [Jardiance] 25 mg PO DAILY 01/21/22 07/10/22 History Ergocalciferol (Vitamin D2) 1,250 mcg PO MO 01/21/22 07/10/22 History [Drisdol (50,000 Iu)] Losartan Potassium [Cozaar] 100 mg PO DAILY 01/21/22 07/10/22 History Magnesium Oxide [Magox 400] 400 mg PO DAILY 01/21/22 07/10/22 History Pregabalin [Lyrica] 150 mg PO BID 01/21/22 07/10/22 History metFORMIN HCL [Glucophage] 1,000 mg PO BID 01/21/22 07/10/22 History Albuterol Sulfate [Proair Hfa] 2 puff INHALATION RT-Q6H PRN 03/20/22 07/10/22 History Dulaglutide [Trulicity] 0.75 mg SQ TH 03/20/22 07/10/22 History hydroCHLOROthiazide 25 mg PO DAILY 07/10/22 07/10/22 History Allergies Allergy/AdvReac Type Severity Reaction Status Date / Time codeine AdvReac Severe Abdominal Verified 07/10/22 11:56 Pain Physical Exam Vitals: Vital Signs Temp Pulse Pulse Resp BP BP Pulse Ox 07/10/22 08:00 98.0 F 103 H 14 125/74 89 L 07/10/22 07:31 97 07/10/22 07:17 99 07/10/22 04:00 97.7 F 94 12 103/66 92 L 07/10/22 03:50 07/10/22 03:08 90 20 138/87 92 L 07/10/22 01:08 93 20 136/70 91 L 07/10/22 00:24 92 07/10/22 00:15 92 07/10/22 00:14 96 07/10/22 00:04 98 07/10/22 00:00 07/09/22 23:41 98 F 106 H 22 109/81 90 L FiO2 07/10/22 08:00 30 07/10/22 07:31 07/10/22 07:17 30 07/10/22 04:00 30 07/10/22 03:50 30 07/10/22 03:08 07/10/22 01:08 07/10/22 00:24 07/10/22 00:15 07/10/22 00:14 07/10/22 00:04 07/10/22 00:00 40 07/09/22 23:41 Intake and Output 07/09/22 07/10/22 07/10/22 22:59 06:59 14:59 Output Total 1000 Balance -1000 Output: Urine 1000 Other: Voiding Method External Catheter External Catheter Weight 81.647 kg Calm and comfortable currently on 4 L O2 nasal cannula Head exam was generally normal. There was no scleral icterus or corneal arcus. Mucous membranes were moist. Neck was supple and without jugular venous distension, thyromegaly, or carotid bruits. Carotids were easily palpable bilaterally. There was no adenopathy. Lungs are diminished and the patient has scattered rhonchi and wheezes throughout the lung his bilaterally along with some bibasilar crackles Cardiac exam revealed the PMI to be normally situated and sized. The rhythm was regular and no extrasystoles were noted during several minutes of auscultation. The first and second heart sounds were normal and physiologic splitting of the second heart sound was noted. There were no murmurs, rubs, clicks, or gallops. Abdominal exam revealed normal bowel sounds. The abdomen was soft, non-tender, and without masses, organomegaly, or appreciable enlargement of the abdominal aorta. Examination of the extremities revealed easily palpable radial, femoral and pedal pulses. There was no cyanosis, clubbing or edema. Examination of the skin revealed no evidence of significant rashes, suspicious appearing nevi or other concerning lesions. Neurologically, the patient is awake and alert and the patient does not have any focal neurological deficit. Cranial nerves are essentially intact. Results - Laboratory Findings CBC and BMP: 07/10/22 00:14 07/10/22 00:14 ABG ABG pH 7.39 (7.35-7.45) 07/10/22 02: ABG pCO2 62 mmHg (35-45) H 07/10/22 02: ABG pO2 80 mmHg (83-108) L 07/10/22 02: ABG O2 Saturation 95.4 % (94-97) 07/10/22 02:05 Urine Color Light Yellow 07/10/22: Urine Appearance Cloudy (Clear) H 07/10/22 00:29 Urine pH 7.5 (5.0-8.0) 07/10/22 00:29 Ur Specific [place] 1.019 (1.001-1.035) 07/10/22 00: Urine Protein Trace (Negative) H 07/10/22 00:29 Urine Glucose (UA) 4+ (Negative) H 07/10/22 00:29 Urine Ketones 1+ (Negative) H 07/10/22 00:29 Urine Blood Negative (Negative) 07/10/22: Urine Nitrite Negative (Negative) 07/10/22 00: Urine Bilirubin Negative (Negative) 07/10/22 00: Urine Urobilinogen <2.0 mg/dL (<2.0) 07/10/22 00: Ur Leukocyte Esterase Large (Negative) H 07/10/22 00:29 Urine RBC 7 /hpf (0-5) H 07/10/22 00:29 Urine WBC 110 /hpf (0-5) H 07/10/22 00:29 Urine Bacteria Few /hpf (None) H 07/10/22 00: Urine Opiates Screen Not Detected (NotDetected) 07/10/22 00:29 Ur Oxycodone Screen Not Detected (NotDetected) 07/10/22 00:29 Urine Methadone Screen Not Detected (NotDetected) 07/10/22 00:29 Ur Propoxyphene Screen Not Detected (NotDetected) 07/10/22 00:29 Ur Barbiturates Screen Not Detected (NotDetected) 07/10/22 00:29 U Tricyclic Antidepress Not Detected (NotDetected) 07/10/22 00:29 Ur Phencyclidine Scrn Not Detected (NotDetected) 07/10/22 00:29 Ur Amphetamines Screen Not Detected (NotDetected) 07/10/22 00:29 U Methamphetamines Scrn Not Detected (NotDetected) 07/10/22 00:29 U Benzodiazepines Scrn Not Detected (NotDetected) 07/10/22 00:29 Urine Cocaine Screen Not Detected (NotDetected) 07/10/22 00:29 U Marijuana (THC) Screen Not Detected (NotDetected) 07/10/22 00:29 Serum Alcohol <10 mg/dL 07/10/22 00:14 Coronavirus (PCR) Not Detected (Not Detectd) 07/10/22 00:29 Influenza Type A RNA Not Detected (Not Detectd) 07/10/22 00:29 Influenza Type B (PCR) Not Detected (Not Detectd) 07/10/22 00:29 PT/INR, D-dimer PT 13.3 sec (9.0-12.0) H 07/10/22 00:14 INR 1.3 (<1.2) H 07/10/22 00:14 D-Dimer 0.29 mg/L FEU (<0.60) 07/10/22 00:14 Abnormal lab findings: Abnormal Labs 07/10/22 07/10/22 07/10/22 00:14 00:14 00:14 WBC 13.1 H MCHC 30.4 L RDW 16.6 H Plt Count 503 H Neutrophils # 10.0 H PT 13.3 H INR 1.3 H ABG pCO2 ABG pO2 ABG HCO3 ABG Total CO2 VBG pCO2 VBG HCO3 Chloride 92 L Carbon Dioxide 35 H BUN 28 H Glucose 213 H POC Glucose (mg/dL) AST 49 H Total Protein 6.1 L Urine Appearance Urine Protein Urine Glucose (UA) Urine Ketones Ur Leukocyte Esterase Urine RBC Urine WBC Urine Bacteria 07/10/22 07/10/22 07/10/22 00:14 00:29 02:05 WBC MCHC RDW Plt Count Neutrophils # PT INR ABG pCO2 62 H ABG pO2 80 L ABG HCO3 38 H ABG Total CO2 39 H VBG pCO2 66 H VBG HCO3 38 H Chloride Carbon Dioxide BUN Glucose POC Glucose (mg/dL) AST Total Protein Urine Appearance Cloudy H Urine Protein Trace H Urine Glucose (UA) 4+ H Urine Ketones 1+ H Ur Leukocyte Esterase Large H Urine RBC 7 H Urine WBC 110 H Urine Bacteria Few H 07/10/22 10:32 WBC MCHC RDW Plt Count Neutrophils # PT INR ABG pCO2 ABG pO2 ABG HCO3 ABG Total CO2 VBG pCO2 VBG HCO3 Chloride Carbon Dioxide BUN Glucose POC Glucose (mg/dL) 221 H AST Total Protein Urine Appearance Urine Protein Urine Glucose (UA) Urine Ketones Ur Leukocyte Esterase Urine RBC Urine WBC Urine Bacteria - Diagnostic Findings Chest x-ray: image reviewed Assessment and Plan Plan: UTI currently under investigation, patient is currently on IV Rocephin Altered mentation, improved probably related to underlying UTI Chronic COPD with a component of interstitial pulmonary markings, rule out underlying CHF Acute hypoxic respiratory failure secondary to above currently on 4 L O2 nasal cannula, was on BiPAP at a pressure of 12/5 cm of water at the time of admission Obesity History of smoking Hypertension Diabetes mellitus Osteoarthritis Scoliosis of the spine, corrected surgically and the patient is appropriate lumbar hardware seen on chest x-ray Plan Start the patient on DuoNeb nebulized treatments around the clock IV Lasix 40 every 12 hours Repeat chest x-ray within the next 24 hours Obtain a baseline echocardiogram to assess LV function Urine cultures Blood cultures Continued IV Rocephin We'll continue to follow
[2022-07-10] MEDS: ATORVASTATIN 80 MG TAB PO SCH (20:27)
[2022-07-11] MEDS: HEPARIN SODIUM,PORCINE/PF 5,000 UNIT/0.5 ML SYRINGE SQ SCH ×3 (01:01→18:56)
[2022-07-11 06:20] LABS: Anisocytosis Slight; Basophils # (A) 0.1 k/uL (0-0.2); Basophils % (A) 1 %; Eosinophils % (A) 0 %; HCT 40.1 % (34.0-46.0); HGB 12.2 gm/dL (11.4-16.0); Hypochromasia Moderate; Lymphocytes # (A) 1.6 k/uL (1.0-4.8); Lymphocytes % (A) 16 %; MCH 25.1 pg (25.0-35.0); MCHC 30.5 g/dL (31.0-37.0); MCV 82.3 fL (80.0-100.0); Mean Platelet Volume 8.6; Monocytes # (A) 0.7 k/uL (0-1.0); Monocytes % (A) 7 %; Neutrophils # (A) 7.5 k/uL (1.3-7.7); Neutrophils % (A) 75 %; Platelet Count 512 k/uL (150-450); Poikilocytosis Slight; RBC 4.87 m/uL (3.80-5.40); RDW 16.1 % (11.5-15.5)
[2022-07-11 06:42] LABS: African American GFR (CKD) >90 (>60 ml/min/1.73 sqM); Anion Gap 13 mmol/L; Blood Urea Nitrogen 28 mg/dL (7-17); Calcium 8.7 mg/dL (8.4-10.2); Carbon Dioxide 37 mmol/L (22-30); Chloride 92 mmol/L (98-107); Glucose 189 mg/dL (74-99); Non-African American GFR(CKD) 84 (>60 ml/min/1.73 sqM); Potassium 3.1 mmol/L (3.5-5.1); Sodium 142 mmol/L (137-145)
[2022-07-11] MEDS ORDERED: Potassium Replacement Protocol 1 EACH MISC MISCELLANE PRN (07:10)
[2022-07-11] MEDS: IPRATROPIUM-ALBUTEROL 3 ML NEB INHALATION PRN ×3 (08:10→16:14)
[2022-07-11] MEDS: SYMBICORT 160-4.5 MCG INHALER INHALATION SCH ×2 (08:10→20:05)
[2022-07-11] MEDS: NON FORMULARY DRUG (Empagliflozin [Jardiance] 25 MG Tablet) PO SCH (08:55)
[2022-07-11] MEDS: metFORMIN 500 MG TAB PO SCH ×2 (09:06→20:05)
[2022-07-11] MEDS: POTASSIUM CHLORIDE ER 20 MEQ TAB.ER PO SCH ×2 (09:06→14:39)
[2022-07-11] MEDS: LINAGLIPTIN 5 MG TABLET PO SCH (09:07)
[2022-07-11] MEDS: FUROSEMIDE 10 MG/ML 4 ML VIAL IV SCH (09:07)
[2022-07-11] MEDS: GLIMEPIRIDE 4 MG TAB PO SCH (09:07)
[2022-07-11] MEDS ORDERED: POTASSIUM CHLORIDE ER 20 MEQ TAB.ER PO STA (11:22)
[2022-07-11] MEDS ORDERED: ALBUTEROL HFA INHALER INHALATION PRN (11:23)
[2022-07-11 12:18] LABS: Glucose,Whole Blood 144 mg/dL (70-110)
--- NOTE | 2022-07-11 12:53 | P.PN ---
Subjective Progress Note Date: 07/11/22 61-year-old female patient, presented emergency department because of altered mental status. UTI was suspected as the patient was having some altered mentation and lethargy. In the ED, the patient was also found to have increased shortness of breath and the patient was also hypoxemic initially placed on a nonrebreather facemask to bring his saturation above 90%. The patient's is known to me. The patient is known to have COPD. Nevertheless, the patient does not use oxygen at home. Nausea CHF and the chest x-ray showing some increased interstitial markings bilaterally consistent with underlying CHF and combination with COPD. Patient was taken off the nonrebreather facemask and the patient was given BiPAP at a pressure of 12/5 cm of water. The patient was given bronchodilators. The patient was given diuretics and currently she is on 4 L of O2 nasal cannula. She is feeling better. She is awake and alert and following commands and answering questions. Denies having any angina or palpitation. No fever or chills. The blood work was done yesterday showed abnormal UA consistent with possible UTI. Urine drug screen was negative. The blood gas showed a pH of 7.39 with a pCO2 of 62 and pO2 of 80 and this was done and FiO2 of 40% while being on BiPAP. The patient was a causative 13.1 with hemoglobin 12.4. Platelet count is at 503. The patient also had a sodium level of 143, BU N of 28 with a creatinine of 0.9, glucose is at 213, proBNP level is at 6690 and LFTs are essentially within normal limits. And a CAT scan of the brain showed no acute abnormalities and the patient does not have any focal neurological deficits for now. 07/11/2022, I'm seeing the patient for a follow-up and the patient is doing well. Less short of breath compared to yesterday. Platelets cough and congestion still present. The patient has a negative fluid balance as the patient was diuresed over the past 24 hours with IV Lasix. Overall fluid balance is -1 L over the past 24 hours. No nausea or vomiting. No chest pain. No ultrafiltration. Resting comfortably in bed. Awaiting an echocardiogram. BUN is a 28 with a creatinine of 0.7. The as well as at 10 with a hemoglobin of 12.2. Troponins are negative. Objective - Vital Signs Vital signs: Vital Signs Temp 97.9 F 07/11/22 08:00 Pulse 104 H 07/11/22 11:52 Resp 19 07/11/22 08:00 BP 135/83 07/11/22 08:00 Pulse Ox 95 07/11/22 08:00 FiO2 30 07/11/22 04:00 Intake & Output 07/10/22 07/11/22 07/11/22 18:59 06:59 18:59 Output Total 1000 500 Balance -1000 -500 Weight 81.647 kg Output: Urine 1000 500 Other: Voiding Method Bedside Commode Bedside Commode Bedside Commode External Catheter External Catheter External Catheter # Voids 200 2 - Exam Calm and comfortable currently on 4 L O2 nasal cannula Head exam was generally normal. There was no scleral icterus or corneal arcus. Mucous membranes were moist. Neck was supple and without jugular venous distension, thyromegaly, or carotid bruits. Carotids were easily palpable bilaterally. There was no adenopathy. Lungs are diminished and the patient has scattered rhonchi and wheezes throughout the lung his bilaterally along with some bibasilar crackles Cardiac exam revealed the PMI to be normally situated and sized. The rhythm was regular and no extrasystoles were noted during several minutes of auscultation. The first and second heart sounds were normal and physiologic splitting of the second heart sound was noted. There were no murmurs, rubs, clicks, or gallops. Abdominal exam revealed normal bowel sounds. The abdomen was soft, non-tender, and without masses, organomegaly, or appreciable enlargement of the abdominal aorta. Examination of the extremities revealed easily palpable radial, femoral and pedal pulses. There was no cyanosis, clubbing or edema. Examination of the skin revealed no evidence of significant rashes, suspicious appearing nevi or other concerning lesions. Neurologically, the patient is awake and alert and the patient does not have any focal neurological deficit. Cranial nerves are essentially intact. - Labs CBC & Chem 7: 07/11/22 05:49 07/11/22 05:49 Labs: Abnormal Lab Results - Last 24 Hours (Table) 07/11/22 07/11/22 07/11/22 Range/Units 05:49 05:49 12:04 MCHC 30.5 L (31.0-37.0) g/dL RDW 16.1 H (11.5-15.5) % Plt Count 512 H (150-450) k/uL Potassium 3.1 L (3.5-5.1) mmol/L Chloride 92 L (98-107) mmol/L Carbon Dioxide 37 H (22-30) mmol/L BUN 28 H (7-17) mg/dL Glucose 189 H (74-99) mg/dL POC Glucose (mg/dL) 144 H (70-110) mg/dL Microbiology - Last 24 Hours (Table) 07/10/22 00:29 Urine Culture - Preliminary Urine,Voided Assessment and Plan Plan: UTI currently under investigation, patient is currently on IV Rocephin, cultures are still pending for now Altered mentation, improved probably related to underlying UTI, recovered Chronic COPD with a component of interstitial pulmonary markings, rule out underlying CHF Acute hypoxic respiratory failure secondary to above currently on 4 L O2 nasal cannula, was on BiPAP at a pressure of 12/5 cm of water at the time of admission Obesity History of smoking Hypertension Diabetes mellitus Osteoarthritis Scoliosis of the spine, corrected surgically and the patient is appropriate lumbar hardware seen on chest x-ray Plan Clinically improving and the patient on DuoNeb nebulized treatments around the clock IV Lasix 40 milligrams every 24 hours Repeat chest x-ray in a.m. Obtain a baseline echocardiogram to assess LV function, results are still pending Urine cultures, pending Blood cultures, pending Continued IV Rocephin We'll continue to follow
--- NOTE | 2022-07-11 13:35 | P.HPIM ---
History of Present Illness 61-year-old female admitted secondary to altered mental status and etiology patient is alert oriented 2. Unknown what her baseline is patient is be presently being treated for COPD exacerbation. Patient was on BiPAP last night patient does have smoking history extensive patient also has pulmonary edema on the chest x-ray although patient doesn't have any significant pedal edema BNP is elevated at 6690 patient is also receiving IV Lasix. ABGs is consistent with the chronic hypercapnic respiratory failure as well as a acute hypercapnia. Patient is presently on 3 L of oxygen receiving systemic steroids when questioned patient was complaining of burning sensation upon urination patient is also being treated for urinary tract infection with Rocephin. Patient is on multiple medications that can cause confusion as well REVIEW OF SYSTEMS: CONSTITUTIONAL: No fever, no malaise, no fatigue. HEENT: No recent visual problems or hearing problems. Denied any sore throat. CARDIOVASCULAR: No chest pain, orthopnea, PND, no palpitations, no syncope. PULMONARY no hemoptysis. GASTROINTESTINAL: No diarrhea, no nausea, no vomiting, no abdominal pain. NEUROLOGICAL: No headaches, no weakness, no numbness. HEMATOLOGICAL: Denies any bleeding or petechiae. GENITOURINARY: Denies any burning micturition, frequency, or urgency. MUSCULOSKELETAL/RHEUMATOLOGICAL: Denies any joint pain, swelling, or any muscle pain. ENDOCRINE: Denies any polyuria or polydipsia. The rest of the 14-point review of systems is negative. PHYSICAL EXAMINATION: GENERAL: The patient is alert and oriented x2, not in any acute distress. Well developed, well nourished. HEENT: Pupils are round and equally reacting to light. EOMI. No scleral icterus. No conjunctival pallor. Normocephalic, atraumatic. No pharyngeal erythema. No thyromegaly. CARDIOVASCULAR: S1 and S2 present. No murmurs, rubs, or gallops. PULMONARY: Bilateral rhonchi and wheezing ABDOMEN: Soft, nontender, nondistended, normoactive bowel sounds. No palpable organomegaly. MUSCULOSKELETAL: No joint swelling or deformity. EXTREMITIES: No cyanosis, clubbing, or pedal edema. NEUROLOGICAL: Gross neurological examination did not reveal any focal deficits. SKIN: No rashes. Assessment and plan -Altered mental status patient may have toxic encephalopathy secondary to m edications, cannot rule out toxic encephalopathy from urinary tract infection -Possibility of UTI for which patient is on Rocephin urine cultures are pending -Acute hypoxic respiratory failure: Secondary to CHF exacerbation continue with s echocardiac exam showed normal ejection fraction may have diastolic dysfunction patient is receiving IV Lasix, may have competent of COPD -Congestive heart failure chronic diastolic dysfunction with acute exacerbation -Continued nicotine use -Hypertension -Type 2 diabetes mellitus blood sugars, patient was resumed on home regimen along with sliding scale monitor blood sugars DVT prophylaxis: Subcutaneous heparin Past Medical History Past Medical History: COPD, Diabetes Mellitus, Eye Disorder, GERD/Reflux, Hyperlipidemia, Hypertension, Osteoarthritis (OA) Additional Past Medical History / Comment(s): Start of glaucoma. "Knees have been giving out." DDD. Stage 1 Emphysema, gout, lower back and left hip pain, History of Any Multi-Drug Resistant Organisms: None Reported Past Surgical History: Back Surgery, Section, Cholecystectomy, Tubal Ligation Additional Past Surgical History / Comment(s): MARBIN PLACED FOR SCOLIOSIS as child. mult left breast biopsy, Past Anesthesia/Blood Transfusion Reactions: No Reported Reaction Past Psychological History: No Psychological Hx Reported Smoking Status: Current every day smoker Past Alcohol Use History: None Reported Past Drug Use History: None Reported - Past Family History Brother(s) Family Medical History: Diabetes Mellitus Mother Family Medical History: Cancer Father Family Medical History: Cancer Medications and Allergies Home Medications Medication Instructions Recorded Confirmed Type Cyclobenzaprine [Flexeril] 10 mg PO HS 07/11/14 07/10/22 History traMADol HCl [Ultram] 50 mg PO Q6H PRN 07/11/14 07/10/22 History Omeprazole [PriLOSEC] 20 mg PO DAILY 08/05/14 07/10/22 History Fenofibrate 160 mg PO DAILY 05/27/16 07/10/22 History allopurinoL [Allopurinol] 100 mg PO DAILY 05/27/16 07/10/22 History Glimepiride [Amaryl] 8 mg PO DAILY 06/28/17 07/10/22 History rOPINIRole HCL [Requip] 0.25 mg PO HS 06/02/18 07/10/22 History Atorvastatin [Lipitor] 80 mg PO HS 01/21/22 07/10/22 History Empagliflozin [Jardiance] 25 mg PO DAILY 01/21/22 07/10/22 History Ergocalciferol (Vitamin D2) 1,250 mcg PO MO 01/21/22 07/10/22 History [Drisdol (50,000 Iu)] Losartan Potassium [Cozaar] 100 mg PO DAILY 01/21/22 07/10/22 History Magnesium Oxide [Magox 400] 400 mg PO DAILY 01/21/22 07/10/22 History Pregabalin [Lyrica] 150 mg PO BID 01/21/22 07/10/22 History metFORMIN HCL [Glucophage] 1,000 mg PO BID 01/21/22 07/10/22 History Albuterol Sulfate [Proair Hfa] 2 puff INHALATION RT-Q6H PRN 03/20/22 07/10/22 History Dulaglutide [Trulicity] 0.75 mg SQ TH 03/20/22 07/10/22 History hydroCHLOROthiazide 25 mg PO DAILY 07/10/22 07/10/22 History Allergies Allergy/AdvReac Type Severity Reaction Status Date / Time codeine AdvReac Severe Abdominal Verified 07/10/22 11:56 Pain Physical Exam Vitals: Vital Signs Temp Pulse Pulse Resp BP Pulse Ox FiO2 07/11/22 11:52 104 H 07/11/22 11:43 100 07/11/22 08:22 96 07/11/22 08:11 92 07/11/22 08:00 97.9 F 104 H 19 135/83 95 07/11/22 04:00 98.2 F 93 17 121/74 95 30 07/11/22 01:25 102 H 18 07/11/22 00:32 30 07/10/22 23:56 98.1 F 102 H 16 117/77 95 30 07/10/22 21:08 106 H 07/10/22 20:57 107 H 07/10/22 20:00 98.0 F 107 H 18 127/80 95 07/10/22 16:18 92 07/10/22 16:08 92 07/10/22 16:00 98.2 F 101 H 19 119/79 94 L 07/10/22 14:00 109 H 20 Intake and Output 07/10/22 07/11/22 07/11/22 22:59 06:59 14:59 Output Total 500 Balance -500 Output: Urine 500 Other: Voiding Method Bedside Commode Bedside Commode Bedside Commode External Catheter External Catheter External Catheter # Voids 200 2 Results CBC & Chem 7: 07/11/22 05:49 07/11/22 05:49 Labs: Abnormal Lab Results - Last 24 Hours (Table) 07/11/22 07/11/22 07/11/22 Range/Units 05:49 05:49 12:04 MCHC 30.5 L (31.0-37.0) g/dL RDW 16.1 H (11.5-15.5) % Plt Count 512 H (150-450) k/uL Potassium 3.1 L (3.5-5.1) mmol/L Chloride 92 L (98-107) mmol/L Carbon Dioxide 37 H (22-30) mmol/L BUN 28 H (7-17) mg/dL Glucose 189 H (74-99) mg/dL POC Glucose (mg/dL) 144 H (70-110) mg/dL Microbiology - Last 24 Hours (Table) 07/10/22 00:29 Urine Culture - Preliminary Urine,Voided Gram Neg Bacilli Thrombosis Risk Factor Assmnt - Choose All That Apply Any of the Below Risk Factors Present?: Yes Each Factor Represents 1 point: Abnormal pulmonary function (COPD), Obesity (BMI >25), Swollen legs (current) Other Risk Factors: Yes Each Risk Factor Represents 2 Points: Age 61-74 years Other congenital or acquired thrombophilia - If yes, enter type in comment: No Thrombosis Risk Factor Assessment Total Risk Factor Score: 5 Thrombosis Risk Factor Assessment Level: High Risk
[2022-07-11] MEDS: NICOTINE 14MG/24HR PATCH TRANSDERM SCH (16:29)
[2022-07-11 17:02] LABS: Glucose,Whole Blood 117 mg/dL (70-110)
[2022-07-11] MEDS: ATORVASTATIN 80 MG TAB PO SCH (20:05)
[2022-07-11 20:30] LABS: Glucose,Whole Blood 243 mg/dL (70-110)
[2022-07-12 06:08] LABS: Glucose,Whole Blood 199 mg/dL (70-110)
--- NOTE | 2022-07-12 07:23 | XR ---
EXAMINATION TYPE: XR chest 1V DATE OF EXAM: 07/12/2022 6:07 AM COMPARISON: Chest radiographs from 07/10/2022 TECHNIQUE: XR chest 1V Frontal view of the chest. CLINICAL INDICATION:Female, 61 years old with history of chf; FINDINGS: The cardiac silhouette is prominent and stable from prior exam. Chronic parenchymal changes bilateral ly without suspicious focal airspace opacity, pleural effusion, or pneumothorax. Underlying scoliosis with Butler levi correction redemonstrated. Osseous structures are demineralized. IMPRESSION: Chronic changes without acute process.
[2022-07-12] MEDS: SYMBICORT 160-4.5 MCG INHALER INHALATION SCH ×2 (07:26→20:29)
[2022-07-12] MEDS: HEPARIN SODIUM,PORCINE/PF 5,000 UNIT/0.5 ML SYRINGE SQ SCH ×4 (08:06→23:45)
[2022-07-12] MEDS: LINAGLIPTIN 5 MG TABLET PO SCH (08:07)
[2022-07-12] MEDS: FENOFIBRATE 160 MG TAB PO SCH (08:07)
[2022-07-12] MEDS: GLIMEPIRIDE 4 MG TAB PO SCH (08:07)
[2022-07-12] MEDS: metFORMIN 500 MG TAB PO SCH ×2 (08:07→20:18)
[2022-07-12] MEDS: NICOTINE 14MG/24HR PATCH TRANSDERM SCH (08:07)
[2022-07-12] MEDS: allopurinoL 100 MG TAB PO SCH (08:07)
[2022-07-12] MEDS: NON FORMULARY DRUG (Empagliflozin [Jardiance] 25 MG Tablet) PO SCH (08:23)
[2022-07-12] MEDS ORDERED: FUROSEMIDE 10 MG/ML 4 ML VIAL IV SCH (09:00)
[2022-07-12] MEDS: IPRATROPIUM-ALBUTEROL 3 ML NEB INHALATION PRN ×2 (10:55→16:17)
[2022-07-12 11:50] LABS: Glucose,Whole Blood 204 mg/dL (70-110)
[2022-07-12] MEDS: HYDROcodone/APAP 7.5-325MG 1 EACH TAB PO PRN ×2 (12:01→20:19)
--- NOTE | 2022-07-12 13:07 | P.PN ---
Subjective Progress Note Date: 07/12/22 61-year-old female patient, presented emergency department because of altered mental status. UTI was suspected as the patient was having some altered mentation and lethargy. In the ED, the patient was also found to have increased shortness of breath and the patient was also hypoxemic initially placed on a nonrebreather facemask to bring his saturation above 90%. The patient's is known to me. The patient is known to have COPD. Nevertheless, the patient does not use oxygen at home. Nausea CHF and the chest x-ray showing some increased interstitial markings bilaterally consistent with underlying CHF and combination with COPD. Patient was taken off the nonrebreather facemask and the patient was given BiPAP at a pressure of 12/5 cm of water. The patient was given bronchodilators. The patient was given diuretics and currently she is on 4 L of O2 nasal cannula. She is feeling better. She is awake and alert and following commands and answering questions. Denies having any angina or palpitation. No fever or chills. The blood work was done yesterday showed abnormal UA consistent with possible UTI. Urine drug screen was negative. The blood gas showed a pH of 7.39 with a pCO2 of 62 and pO2 of 80 and this was done and FiO2 of 40% while being on BiPAP. The patient was a causative 13.1 with hemoglobin 12.4. Platelet count is at 503. The patient also had a sodium level of 143, BU N of 28 with a creatinine of 0.9, glucose is at 213, proBNP level is at 6690 and LFTs are essentially within normal limits. And a CAT scan of the brain showed no acute abnormalities and the patient does not have any focal neurological deficits for now. 07/11/2022, I'm seeing the patient for a follow-up and the patient is doing well. Less short of breath compared to yesterday. Platelets cough and congestion still present. The patient has a negative fluid balance as the patient was diuresed over the past 24 hours with IV Lasix. Overall fluid balance is -1 L over the past 24 hours. No nausea or vomiting. No chest pain. No ultrafiltration. Resting comfortably in bed. Awaiting an echocardiogram. BUN is a 28 with a creatinine of 0.7. The as well as at 10 with a hemoglobin of 12.2. Troponins are negative. 07/12/2022, patient is doing well. No specific complaints. Chest x-ray showing no acute abnormalities. The patient got diuresed well over the past 24 hours and the patient has no complaints of a feeding for the entire. She is in a negative fluid balance. She remains on IV Rocephin and the patient has E. coli in her urine. She is on DuoNeb nebulized treatments around the clock. She is on Symbicort and DuoNeb nebulized treatments around the clock. No other sig nificant events patient is resting comfortably in bed. Objective - Vital Signs Vital signs: Vital Signs Temp 97.7 F 07/12/22 03:56 Pulse 89 07/12/22 08:04 Resp 16 07/12/22 08:04 BP 124/67 07/12/22 08:04 Pulse Ox 99 07/12/22 08:04 FiO2 30 07/11/22 04:00 Intake & Output 07/11/22 07/12/22 07/12/22 18:59 06:59 18:59 Intake Total 237 1248 Output Total 700 1375 200 Balance -463 -127 -200 Weight 82.7 kg Intake: Intake, IV Titration 50 Amount cefTRIAXone 2 gm In 50 Sodium Chloride 0.9% 50 ml @ 100 mls/hr IVPB Q24H [facility] Rx#:[id number] Oral 237 1198 Output: Urine 700 1375 200 Other: Voiding Method Bedside Commode Bedside Commode External Catheter # Voids 1 # Bowel Movements 1 - Exam Calm and comfortable currently on 4 L O2 nasal cannula Head exam was generally normal. There was no scleral icterus or corneal arcus. Mucous membranes were moist. Neck was supple and without jugular venous distension, thyromegaly, or carotid bruits. Carotids were easily palpable bilaterally. There was no adenopathy. Lungs are diminished and the patient has scattered rhonchi and wheezes throughout the lung his bilaterally along with some bibasilar crackles Cardiac exam revealed the PMI to be normally situated and sized. The rhythm was regular and no extrasystoles were noted during several minutes of auscultation. The first and second heart sounds were normal and physiologic splitting of the second heart sound was noted. There were no murmurs, rubs, clicks, or gallops. Abdominal exam revealed normal bowel sounds. The abdomen was soft, non-tender, and without masses, organomegaly, or appreciable enlargement of the abdominal aorta. Examination of the extremities revealed easily palpable radial, femoral and pedal pulses. There was no cyanosis, clubbing or edema. Examination of the skin revealed no evidence of significant rashes, suspicious appearing nevi or other concerning lesions. Neurologically, the patient is awake and alert and the patient does not have any focal neurological deficit. Cranial nerves are essentially intact. - Labs CBC & Chem 7: 07/11/22 05:49 07/11/22 05:49 Labs: Abnormal Lab Results - Last 24 Hours (Table) 07/11/22 07/11/22 07/11/22 Range/Units 12:04 16:56 20:28 POC Glucose (mg/dL) 144 H 117 H 243 H (70-110) mg/dL 07/12/22 Range/Units 06:06 POC Glucose (mg/dL) 199 H (70-110) mg/dL Microbiology - Last 24 Hours (Table) 07/10/22 00:29 Urine Culture - Final Urine,Voided Escherichia coli Assessment and Plan Plan: UTI secondary to E. coli , on IV Rocephin Altered mentation, improved probably related to underlying UTI, recovered Chronic COPD with a component of interstitial pulmonary markings, rule out underlying CHF Acute hypoxic respiratory failure secondary to above currently on 4 L O2 nasal cannula, was on BiPAP at a pressure of 12/5 cm of water at the time of admission Obesity History of smoking Hypertension Diabetes mellitus Osteoarthritis Scoliosis of the spine, corrected surgically and the patient is appropriate lumbar hardware seen on chest x-ray Plan Clinically improving and the patient on DuoNeb nebulized treatments around the clock Stopped IV Lasix and additional oral Lasix Repeat chest x-ray in a.m. this was reviewed and the chest x-ray showing stable findings Obtain a baseline echocardiogram to assess LV function, results are within normal limits. Continued IV Rocephin We'll continue to follow
[2022-07-12 13:28] LABS: African American GFR (CKD) >90 (>60 ml/min/1.73 sqM); Anion Gap 13 mmol/L; Blood Urea Nitrogen 28 mg/dL (7-17); Calcium 9.5 mg/dL (8.4-10.2); Carbon Dioxide 34 mmol/L (22-30); Chloride 93 mmol/L (98-107); Glucose 175 mg/dL (74-99); Non-African American GFR(CKD) >90 (>60 ml/min/1.73 sqM); Potassium 3.6 mmol/L (3.5-5.1); Sodium 140 mmol/L (137-145)
[2022-07-12] MEDS: FUROSEMIDE 40 MG TAB PO SCH (15:54)
[2022-07-12 16:40] LABS: Glucose,Whole Blood 114 mg/dL (70-110)
[2022-07-12 20:19] LABS: Glucose,Whole Blood 245 mg/dL (70-110)
[2022-07-12] MEDS: ATORVASTATIN 80 MG TAB PO SCH (20:19)
[2022-07-13] MEDS: HYDROcodone/APAP 7.5-325MG 1 EACH TAB PO PRN ×2 (04:44→23:33)
[2022-07-13 06:22] LABS: Glucose,Whole Blood 99 mg/dL (70-110)
[2022-07-13] MEDS: SYMBICORT 160-4.5 MCG INHALER INHALATION SCH ×2 (08:28→19:20)
[2022-07-13] MEDS: IPRATROPIUM-ALBUTEROL 3 ML NEB INHALATION PRN ×2 (08:28→11:58)
[2022-07-13] MEDS: FENOFIBRATE 160 MG TAB PO SCH (09:13)
[2022-07-13] MEDS: FUROSEMIDE 40 MG TAB PO SCH ×2 (09:13→19:40)
[2022-07-13] MEDS: metFORMIN 500 MG TAB PO SCH ×2 (09:13→20:41)
[2022-07-13] MEDS: NICOTINE 14MG/24HR PATCH TRANSDERM SCH (09:13)
[2022-07-13] MEDS: LINAGLIPTIN 5 MG TABLET PO SCH (09:13)
[2022-07-13] MEDS: allopurinoL 100 MG TAB PO SCH (09:13)
[2022-07-13] MEDS: GLIMEPIRIDE 4 MG TAB PO SCH (09:13)
[2022-07-13] MEDS: HEPARIN SODIUM,PORCINE/PF 5,000 UNIT/0.5 ML SYRINGE SQ SCH ×3 (09:13→23:33)
--- NOTE | 2022-07-13 10:10 | P.PN ---
Subjective Progress Note Date: 07/12/22 61-year-old female admitted secondary to altered mental status and etiology patient is alert oriented 2. Unknown what her baseline is patient is be presently being treated for COPD exacerbation. Patient was on BiPAP last night patient does have smoking history extensive patient also has pulmonary edema on the chest x-ray although patient doesn't have any significant pedal edema BNP is elevated at 6690 patient is also receiving IV Lasix. ABGs is consistent with the chronic hypercapnic respiratory failure as well as a acute hypercapnia. Patient is presently on 3 L of oxygen receiving systemic steroids when questioned patient was complaining of burning sensation upon urination patient is also being treated for urinary tract infection with Rocephin. Patient is on multiple medications that can cause confusion as well 07/12/2022 Patient is seen and evaluated in follow-up this morning continues to be dyspneic with exertion and currently maintained on 3 L via nasal cannula. Patient has be en admitted for COPD exacerbation along with UTI and is maintained on ceftriaxone and cultures finalized showing E. coli. Recommend continue with breathing inhalational treatments and continue to wean FiO2 as tolerated. Patient reports she does not wear oxygen at home. Will also assess for possible home O2. Encouraged increased activity as tolerated and encouraged oral intake. Pulmonary is following and will discuss about discharge planning in the next 24 hours or so. Review of systems: Constitutional: No reports of fatigue, fever, or chills Cardiovascular: No reports of chest pain or palpitations Respiratory: reports of shortness of breath and occasional cough GI: No reports of nausea, vomiting, or diarrhea : No reports of dysuria or retention Neurovascular: No reports of weakness or numbness All medications have been reviewed PHYSICAL EXAMINATION: GENERAL: The patient is alert and oriented x2, not in any acute distress. Well developed, well nourished. HEENT: Pupils are round and equally reacting to light. EOMI. No scleral icterus. No conjunctival pallor. Normocephalic, atraumatic. No pharyngeal erythema. No thyromegaly. CARDIOVASCULAR: S1 and S2 present. No murmurs, rubs, or gallops. PULMONARY: Bilateral rhonchi and wheezing, wheezing improved ABDOMEN: Soft, nontender, nondistended, normoactive bowel sounds. No palpable organomegaly. MUSCULOSKELETAL: No joint swelling or deformity. EXTREMITIES: No cyanosis, clubbing, or pedal edema. NEUROLOGICAL: Gross neurological examination did not reveal any focal deficits. SKIN: No rashes. Assessment and plan -Altered mental status, patient may have toxic encephalopathy secondary to medications, cannot rule out toxic encephalopathy from urinary tract infection -Acute UTI with cultures growing E. coli and will continue Rocephin, transition to a short course of oral Ceftin on discharge -Acute hypoxic respiratory failure: Secondary to CHF exacerbation, may have diastolic dysfunction and patient was continued on IV Lasix, may have component of COPD, acute exacerbation -COPD, acute exacerbation -Congestive heart failure chronic diastolic dysfunction with acute exacerbation -Continued nicotine use -Hypertension -Type 2 diabetes mellitus blood sugars, patient was resumed on home regimen along with sliding scale monitor blood sugars -DVT prophylaxis: Subcutaneous heparin Plan: Recommend continue to wean FiO2 as tolerated with possible home O2 assessment Continue current medication regimen including ceftriaxone and we'll transition to oral Ceftin Pulmonary following and awaiting clearance for discharge with outpatient follow- up Continue to monitor blood sugars and continue with Accu-Cheks before meals and at bedtime and sliding scale Patient has been transitioned oral Lasix and will continue in the outpatient setting Possible discharge in the next 24-48 hours The impression and plan of care has been dictated as a scribe by Roseanna Austin, Nurse Practitioner as directed. MD Khurram I have performed a history and examination and MDM of this patient, discussed the same with the dictator, and agree with the dictator's assessment and plan as written ,documented as a scribe. Based on total visit time, I have performed more than 50% of the visit. Objective - Vital Signs Vital signs: Vital Signs Temp 98.0 F 07/12/22 11:54 Pulse 90 07/12/22 11:54 Resp 16 07/12/22 08:04 BP 121/77 07/12/22 11:54 Pulse Ox 98 07/12/22 11:54 FiO2 30 07/11/22 04:00 Intake & Output 07/11/22 07/12/22 07/12/22 18:59 06:59 18:59 Intake Total 237 1248 Output Total 315 8467 650 Balance -463 -963 -948 Weight 82.7 kg Intake: Intake, IV Titration 50 Amount cefTRIAXone 2 gm In 50 Sodium Chloride 0.9% 50 ml @ 100 mls/hr IVPB Q24H [facility] Rx#:[id number] Oral 237 1198 Output: Urine 700 1375 650 Other: Voiding Method Bedside Commode Bedside Commode Bedside Commode External Catheter # Voids 1 3 # Bowel Movements 1 - Labs CBC & Chem 7: 07/11/22 05:49 07/12/22 12:40 Labs: Abnormal Lab Results - Last 24 Hours (Table) 07/11/22 07/11/22 07/12/22 Range/Units 16:56 20:28 06:06 POC Glucose (mg/dL) 117 H 243 H 199 H (70-110) mg/dL 07/12/22 Range/Units 11:48 POC Glucose (mg/dL) 204 H (70-110) mg/dL Microbiology - Last 24 Hours (Table) 07/10/22 00:29 Urine Culture - Final Urine,Voided Escherichia coli
[2022-07-13] MEDS: NON FORMULARY DRUG (Empagliflozin [Jardiance] 25 MG Tablet) PO SCH (11:12)
[2022-07-13 11:54] LABS: Glucose,Whole Blood 134 mg/dL (70-110)
[2022-07-13 19:17] LABS: Glucose,Whole Blood 144 mg/dL (70-110)
[2022-07-13 20:37] LABS: Glucose,Whole Blood 130 mg/dL (70-110)
[2022-07-13] MEDS: ATORVASTATIN 80 MG TAB PO SCH (20:41)
--- NOTE | 2022-07-13 21:15 | P.PN ---
Subjective Progress Note Date: 07/13/22 Principal diagnosis: Postoperative day #8 previous sternotomy, mediastinal exploration, evacuation of pericardial fat, postoperative day #8 aortic valve replacement, severe bicuspid aortic valve stenosis Patient was reevaluated today on 07/13/22, sating at a bedside recliner, she is in the stepdown unit, does not seem to be in any distress. Pain seems to be fairly well controlled, patient denies any shortness of breath, she is in sinus rhythm and she is hemodynamically stable. Patient is anticipating discharge to rehab facility and that is yet to be approved by her insurance. She is ambulating in the hallway with assistance. Objective - Vital Signs Vital signs: Vital Signs Temp 98.4 F 07/13/22 20:00 Pulse 103 H 07/13/22 20:00 Resp 18 07/13/22 20:00 BP 117/74 07/13/22 20:00 Pulse Ox 90 L 07/13/22 20:00 FiO2 30 07/11/22 04:00 Intake & Output 07/13/22 07/13/22 07/14/22 06:59 18:59 06:59 Intake Total 296 10 Output Total 200 Balance -200 296 10 Intake: IV 10 Invasive Line 1 10 Oral 296 Output: Urine 200 Other: Voiding Method Bedside Commode Bedside Commode - Exam Physical Exam: Revealed 61-year-old female in no distress Head: Atraumatic, normocephalic. HEENT:[Neck is supple.] [No neck masses.] [No thyromegaly.] [No JVD.] Chest: [Clear throughout, no crackles, no rhonchi, no wheezes.] Cardiac Exam: [Normal S1 and S2, no S3 gallop, no murmur.] Abdomen: [Soft, nontender, no megaly, no rebound, no guarding, normal bowel sounds.] Extremities: [No clubbing, no edema, no cyanosis.] Neurological Exam: [No focal neurologic deficit.] - Labs CBC & Chem 7: 07/11/22 05:49 07/12/22 12:40 Labs: Abnormal Lab Results - Last 24 Hours (Table) 07/13/22 07/13/22 07/13/22 Range/Units 11:53 17:00 20:35 POC Glucose (mg/dL) 134 H 144 H 130 H (70-110) mg/dL Assessment and Plan Assessment: Impression: Severe bicuspid aortic valve stenosis, status post aortic valve replacement Benign essential hypertension Acute on chronic diastolic heart failure History of colon cancer requiring bowel resection and chemotherapy Hypothyroidism Chronic obstructive pulmonary disease Obstructive sleep apnea syndrome on CPAP at home History of rheumatoid arthritis History of lupus Morbid obesity Chronic vertigo and Mnire's disease History of sarcoidosis Pericardial tempo not requiring sternotomy mediastinal exploration and evacuation of pericardial clot, expected Recommendation: Continue to maximize medical therapy including aspirin and Plavix statin and beta blockers Continue incentive spirometry Continue to increase activity and the patient would be considered for rehab Continue GI and DVT prophylaxis Discharge planning is in progress. Time with Patient: Less than 30
--- NOTE | 2022-07-13 21:27 | P.PN ---
Subjective Progress Note Date: 07/13/22 Principal diagnosis: Acute urinary tract infection secondary to E. coli, and acute hypoxic respiratory failure secondary to COPD and suspect acute diastolic congestive heart failure. Patient was reevaluated today on 07/13/22, seems to be doing well, no complaints, chest x-ray is showing improvement. Patient has been diuresed over the last 24 hours, she is in negative fluid balance, remains on Rocephin for E. coli in her urine. Remains on bronchodilators for underlying COPD, is also on Symbicort and DuoNeb updrafts. Definite improvement over the last 24 hours. No labs were done today Objective - Vital Signs Vital signs: Vital Signs Temp 98.4 F 07/13/22 20:00 Pulse 103 H 07/13/22 20:00 Resp 18 07/13/22 20:00 BP 117/74 07/13/22 20:00 Pulse Ox 90 L 07/13/22 20:00 FiO2 30 07/11/22 04:00 Intake & Output 07/13/22 07/13/22 07/14/22 06:59 18:59 06:59 Intake Total 296 10 Output Total 200 Balance -200 296 10 Intake: IV 10 Invasive Line 1 10 Oral 296 Output: Urine 200 Other: Voiding Method Bedside Commode Bedside Commode - Exam Physical Exam: Revealed a 61-year-old female in no distress. On 4 L nasal cannula. Head: Atraumatic, normocephalic. HEENT:[Neck is supple.] [No neck masses.] [No thyromegaly.] [No JVD.] Chest: [Clear throughout, no crackles, no rhonchi, no wheezes.] Cardiac Exam: [Normal S1 and S2, no S3 gallop, no murmur.] Abdomen: [Soft, nontender, no megaly, no rebound, no guarding, normal bowel sounds.] Extremities: [No clubbing, no edema, no cyanosis.] Neurological Exam: [No focal neurologic deficit.] Alert oriented 3. Psychiatric: Normal mood affect and normal mental status examination. - Labs CBC & Chem 7: 07/11/22 05:49 07/12/22 12:40 Labs: Abnormal Lab Results - Last 24 Hours (Table) 07/13/22 07/13/22 07/13/22 Range/Units 11:53 17:00 20:35 POC Glucose (mg/dL) 134 H 144 H 130 H (70-110) mg/dL Assessment and Plan Assessment: Acute hypoxic respiratory failure secondary to COPD and underlying diastolic congestive heart failure Acute urinary tract infection secondary to E. coli Acute metabolic encephalopathy History of smoking Osteoarthritis Type 2 diabetes Benign essential hypertension Recommendation: Continue updrafts Continue oral diuretics Continue Rocephin Will clear for discharge planning in the next 24 hours Time with Patient: Less than 30
--- NOTE | 2022-07-14 00:01 | P.PN ---
Subjective Progress Note Date: 07/13/22 61-year-old female admitted secondary to altered mental status and etiology patient is alert oriented 2. Unknown what her baseline is patient is be presently being treated for COPD exacerbation. Patient was on BiPAP last night patient does have smoking history extensive patient also has pulmonary edema on the chest x-ray although patient doesn't have any significant pedal edema BNP is elevated at 6690 patient is also receiving IV Lasix. ABGs is consistent with the chronic hypercapnic respiratory failure as well as a acute hypercapnia. Patient is presently on 3 L of oxygen receiving systemic steroids when questioned patient was complaining of burning sensation upon urination patient is also being treated for urinary tract infection with Rocephin. Patient is on multiple medications that can cause confusion as well 07/12/2022 Patient is seen and evaluated in follow-up this morning continues to be dyspneic with exertion and currently maintained on 3 L via nasal cannula. Patient has be en admitted for COPD exacerbation along with UTI and is maintained on ceftriaxone and cultures finalized showing E. coli. Recommend continue with breathing inhalational treatments and continue to wean FiO2 as tolerated. Patient reports she does not wear oxygen at home. Will also assess for possible home O2. Encouraged increased activity as tolerated and encouraged oral intake. Pulmonary is following and will discuss about discharge planning in the next 24 hours or so. 07/13/2022 Patient is seen and evaluated in follow-up today with pulmonary following. Urine culture shows ecoli and will continue IV ceftriaxone. Patient is continued on oxygen and also per nursing staff continues to remove the oxygen stating she does not need it. Per nursing staff she is dropping to mid to high 80's on room air. Patient denies this and denies any worsening shortness of breath. Pulmonary following and recommends outpatient follow up on discharge. Lasix transitioned to oral and faint crackles noted at the bases and will give one time dose of IV lasix. Close monitoring overnight with probable discharge in 24 hours. Encouraged increased activity as tolerated. Patient is afebrile and denies chest pain. Review of systems: Constitutional: No reports of fatigue, fever, or chills Cardiovascular: No reports of chest pain or palpitations Respiratory: reports of improved shortness of breath GI: No reports of nausea, vomiting, or diarrhea : No reports of dysuria or retention Neurovascular: No reports of weakness or numbness All medications have been reviewed PHYSICAL EXAMINATION: GENERAL: The patient is alert and oriented x2, not in any acute distress. Well developed, well nourished. HEENT: Pupils are round and equally reacting to light. EOMI. No scleral icterus. No conjunctival pallor. Normocephalic, atraumatic. No pharyngeal erythema. No thyromegaly. CARDIOVASCULAR: S1 and S2 present. No murmurs, rubs, or gallops. PULMONARY: Bilateral rhonchi and wheezing, wheezing improved, faint crackles at the bases ABDOMEN: Soft, nontender, nondistended, normoactive bowel sounds. No palpable organomegaly. MUSCULOSKELETAL: No joint swelling or deformity. EXTREMITIES: No cyanosis, clubbing, or pedal edema. NEUROLOGICAL: Gross neurological examination did not reveal any focal deficits. SKIN: No rashes. Assessment: -Altered mental status, patient may have toxic encephalopathy secondary to medications, cannot rule out toxic encephalopathy from urinary tract infection -Acute UTI with cultures growing E. coli and will continue Rocephin, transition to a short course of oral Ceftin on discharge -Acute hypoxic respiratory failure: Secondary to CHF exacerbation, may have diastolic dysfunction and patient was continued on IV Lasix -COPD, acute exacerbation -Congestive heart failure chronic diastolic dysfunction with acute exacerbation -Continued nicotine use -Hypertension -Type 2 diabetes mellitus blood sugars, patient was resumed on home regimen along with sliding scale monitor blood sugars -DVT prophylaxis: Subcutaneous heparin -full code Plan: Recommend continue to wean FiO2 as tolerated with possible home O2 assessment, patient is refusing home oxygen and denies shortness of breath Continue current medication regimen including ceftriaxone and we'll transition t o oral Ceftin Pulmonary following and recommend outpatient follow-up Continue to monitor blood sugars and continue with Accu-Cheks before meals and at bedtime and sliding scale Patient has been transitioned oral Lasix and will continue in the outpatient setting, will give one time dose of IV lasix Possible discharge in the 24 hours The impression and plan of care has been dictated by Roseanna Austin, Nurse Practitioner as directed. Dr. Mitchell MD I have performed a history and examination and MDM of this patient, discussed the same with the dictator, and agree with the dictator's assessment and plan as written ,documented as a scribe. Based on total visit time, I have performed more than 50% of the visit. Objective - Vital Signs Vital signs: Vital Signs Temp 98.3 F 07/13/22 07:31 Pulse 90 07/13/22 08:40 Resp 19 07/13/22 08:00 BP 129/52 07/13/22 07:31 Pulse Ox 93 L 07/13/22 08:31 FiO2 30 07/11/22 04:00 Intake & Output 07/12/22 07/13/22 07/13/22 18:59 06:59 18:59 Intake Total 296 Output Total 650 200 Balance -650 -200 296 Intake: Oral 296 Output: Urine 650 200 Other: Voiding Method Bedside Commode Bedside Commode Bedside Commode # Voids 1 - Labs CBC & Chem 7: 07/11/22 05:49 07/12/22 12:40 Labs: Abnormal Lab Results - Last 24 Hours (Table) 07/12/22 07/12/22 07/12/22 Range/Units 11:48 12:40 16:38 Chloride 93 L (98-107) mmol/L Carbon Dioxide 34 H (22-30) mmol/L BUN 28 H (7-17) mg/dL Glucose 175 H (74-99) mg/dL POC Glucose (mg/dL) 204 H 114 H (70-110) mg/dL 07/12/22 Range/Units 20:18 Chloride (98-107) mmol/L Carbon Dioxide (22-30) mmol/L BUN (7-17) mg/dL Glucose (74-99) mg/dL POC Glucose (mg/dL) 245 H (70-110) mg/dL Microbiology - Last 24 Hours (Table) 07/10/22 00:29 Urine Culture - Final Urine,Voided Escherichia coli
[2022-07-14 06:13] LABS: Glucose,Whole Blood 145 mg/dL (70-110)
[2022-07-14 07:36] VITALS: PULSE 97
[2022-07-14] MEDS: SYMBICORT 160-4.5 MCG INHALER INHALATION SCH (07:52)
[2022-07-14] MEDS: HYDROcodone/APAP 7.5-325MG 1 EACH TAB PO PRN (08:57)
[2022-07-14] MEDS: HEPARIN SODIUM,PORCINE/PF 5,000 UNIT/0.5 ML SYRINGE SQ SCH (09:11)
[2022-07-14] MEDS: allopurinoL 100 MG TAB PO SCH (09:11)
[2022-07-14] MEDS: NICOTINE 14MG/24HR PATCH TRANSDERM SCH ×2 (09:11→09:24)
[2022-07-14] MEDS: FENOFIBRATE 160 MG TAB PO SCH (09:12)
[2022-07-14] MEDS: NON FORMULARY DRUG (Empagliflozin [Jardiance] 25 MG Tablet) PO SCH (09:13)
[2022-07-14] MEDS: FUROSEMIDE 40 MG TAB PO SCH (09:13)
[2022-07-14] MEDS: LINAGLIPTIN 5 MG TABLET PO SCH (09:14)
[2022-07-14] MEDS: GLIMEPIRIDE 4 MG TAB PO SCH (09:14)
[2022-07-14] MEDS: metFORMIN 500 MG TAB PO SCH (09:16)
--- NOTE | 2022-07-14 11:21 | P.EN ---
Patient will require 2 L of oxygen via nasal cannula on discharge to manage COPD
[2022-07-14 11:31] LABS: Glucose,Whole Blood 239 mg/dL (70-110)
[2022-07-14 11:43] VITALS: BP 115/88; RESP 18; TEMP 98
--- NOTE | 2022-07-14 13:31 | P.PN ---
Subjective Progress Note Date: 07/14/22 Principal diagnosis: Acute urinary tract infection secondary to E. coli, and acute hypoxic respiratory failure secondary to COPD and suspect acute diastolic congestive heart failure. Patient was reevaluated today on 07/13/22, seems to be doing well, no complaints, chest x-ray is showing improvement. Patient has been diuresed over the last 24 hours, she is in negative fluid balance, remains on Rocephin for E. coli in her urine. Remains on bronchodilators for underlying COPD, is also on Symbicort and DuoNeb updrafts. Definite improvement over the last 24 hours. No labs were done today Reevaluated today on 07/14/22, patient is doing well, she wants to be discharged home. Hardly any cough no wheezing no shortness of breath, nonetheless patient qualified for home oxygen, and she would have a oxygen today for discharge remains on bronchodilators for underlying COPD, significant improvement has been noted over the last few days. Hence I will clear the patient to be discharged home today. Objective - Vital Signs Vital signs: Vital Signs Temp 98.0 F 07/14/22 11:40 Pulse 97 07/14/22 11:40 Resp 18 07/14/22 11:40 BP 115/88 07/14/22 11:40 Pulse Ox 97 07/14/22 11:40 FiO2 30 07/11/22 04:00 Intake & Output 07/13/22 07/14/22 07/14/22 18:59 06:59 18:59 Intake Total 296 20 480 Output Total 1000 Balance 296 -980 480 Weight 81.5 kg Intake: IV 20 Invasive Line 1 20 Oral 296 480 Output: Urine 1000 Other: Voiding Method Bedside Commode Bedside Commode Toilet - Exam Physical Exam: Revealed a 61-year-old female in no distress. On 2 L nasal cannula Head: Atraumatic, normocephalic. HEENT:[Neck is supple.] [No neck masses.] [No thyromegaly.] [No JVD.] Chest: [Clear throughout, no crackles, no rhonchi, no wheezes.] Cardiac Exam: [Normal S1 and S2, no S3 gallop, no murmur.] Abdomen: [Soft, nontender, no megaly, no rebound, no guarding, normal bowel sounds.] Extremities: [No clubbing, no edema, no cyanosis.] Neurological Exam: [No focal neurologic deficit.] Alert oriented 3. Psychiatric: Normal mood affect and normal mental status examination. - Labs CBC & Chem 7: 07/11/22 05:49 07/12/22 12:40 Labs: Abnormal Lab Results - Last 24 Hours (Table) 07/13/22 07/13/22 07/14/22 Range/Units 17:00 20:35 06:11 POC Glucose (mg/dL) 144 H 130 H 145 H (70-110) mg/dL 07/14/22 Range/Units 11:30 POC Glucose (mg/dL) 239 H (70-110) mg/dL Assessment and Plan Assessment: Acute hypoxic respiratory failure secondary to COPD and underlying diastolic congestive heart failure Acute urinary tract infection secondary to E. coli Acute metabolic encephalopathy, resolved. History of smoking Osteoarthritis Type 2 diabetes Benign essential hypertension Recommendation: Agree with home O2 Agree with discharge planning Continue updraftsSuggest a course of prednisone 30 mg tapered over 2 weeks continue antibiotics. However the patient could be switched to oral antibiotics. Suggested Trelegy Ellipta at home along with Nathen levyramarleen 4 times a day and when necessary and prednisone burst and taper over 2 weeks Continue oral diuretics We have for discharge planning today. Time with Patient: Less than 30
[2022-07-15] MEDS ORDERED: NON FORMULARY DRUG (Dulaglutide [Trulicity] 0.75 MG/0.5 ML Each) SQ SCH (09:00)
--- NOTE | 2022-07-15 21:23 | XR ---
EXAMINATION TYPE: XR chest 1V portable DATE OF EXAM: 07/14/2022 COMPARISON: 07/12/2022 INDICATION: Short of breath TECHNIQUE: Single frontal view of the chest is obtained. FINDINGS: The heart size is normal. The pulmonary vasculature is normal. The lungs are clear. Fixation levi is within the mid thoracic spine. Scoliosis is present with convexity to the right. IMPRESSION: 1. No acute pulmonary process.
== END 2022-07-14 17:00 | disposition home or self-care (01) | DRG 291 ==
LOC: EC 23:27 → 3SCARD 07-10 02:53
PROVIDERS: ADMIT Internal Medicine; ATTEND Internal Medicine
PROC: 5A09357 Assistance with Respiratory Ventilation, Less than 24 Consecutive Hours, Continuous Positive Airway Pressure (ICD-10-PCS; principal; 2022-07-10)
DX: I11.0 Hypertensive heart disease with heart failure (principal); G92.8 Other toxic encephalopathy; I50.33 Acute on chronic diastolic (congestive) heart failure; J96.01 Acute respiratory failure with hypoxia; J96.22 Acute and chronic respiratory failure with hypercapnia; Q23.1 Congenital insufficiency of aortic valve; N39.0 Urinary tract infection, site not specified; M19.90 Unspecified osteoarthritis, unspecified site; M41.9 Scoliosis, unspecified; M06.9 Rheumatoid arthritis, unspecified; B96.20 Unspecified Escherichia coli [E. coli] as the cause of diseases classified elsewhere; D86.9 Sarcoidosis, unspecified; E11.9 Type 2 diabetes mellitus without complications; E66.01 Morbid (severe) obesity due to excess calories; Z68.29 Body mass index [BMI] 29.0-29.9, adult; E78.5 Hyperlipidemia, unspecified; F17.210 Nicotine dependence, cigarettes, uncomplicated; G47.33 Obstructive sleep apnea (adult) (pediatric); J43.9 Emphysema, unspecified; T50.915A Adverse effect of multiple unspecified drugs, medicaments and biological substances, initial encounter; H40.9 Unspecified glaucoma; M10.9 Gout, unspecified; K21.9 Gastro-esophageal reflux disease without esophagitis; Z79.51 Long term (current) use of inhaled steroids; Z79.84 Long term (current) use of oral hypoglycemic drugs; Z79.899 Other long term (current) drug therapy; Z83.3 Family history of diabetes mellitus; Z85.038 Personal history of other malignant neoplasm of large intestine; Z92.21 Personal history of antineoplastic chemotherapy; Z87.440 Personal history of urinary (tract) infections; Z95.2 Presence of prosthetic heart valve; Z20.822 Contact with and (suspected) exposure to COVID-19; Z88.5 Allergy status to narcotic agent
CPT/HCPCS: 36415; 36600; 70450; 71045; 80048; 80053; 80306; 80320; 81001; 82140; 82803; 82805; 83605; 83880; 84484; 85025; 85379; 85610; 85730; 87077; 87086; 87186; 87502; 87635; 93005; 93306; 94640; 94660; 94760; 96365; 96375; 96376; 99291

== ENCOUNTER 2022-09-14 01:49 | Inpatient (IN) | payer OTHER ==
[2022-09-14] MEDS ORDERED: SODIUM CHLORIDE 0.9% 1,000 ML IV STA (01:52)
[2022-09-14] MEDS ORDERED: Alteplase PER PHARMACY Stroke 1 EACH MISC MISCELLANE PRN (01:52)
[2022-09-14] MEDS ORDERED: ALTEPLASE BOLUS 1 MG/1 ML SYRINGE IV STA (01:54)
[2022-09-14] MEDS ORDERED: ALTEPLASE IV STA (01:54)
[2022-09-14 02:08] LABS: Glucose,Whole Blood 114 mg/dL (70-110)
--- NOTE | 2022-09-14 02:14 | ED ---
Altered Mental Status HPI - General Stated Complaint: Alteplase Time Seen by Provider: 09/14/22 01:52 Source: RN notes reviewed, old records reviewed Mode of arrival: EMS Limitations: altered mental status, physical limitation - History of Present Illness Initial Comments: This is a 62-year-old female to the emergency department for evaluation patient's brought in for evaluation of possible strokelike symptoms. Patient last seen normal 3 hours ago however the patient arrives in the ER with slurred speech not acting appropriately not responding to questions with significantly altered mental status. Patient is unable to provide history history obtained from EMS MD Complaint: altered mental status, confusion, decreased responsiveness -: hour(s) (3) Severity: severe Consistency of Symptoms: getting worse Context: history of similar presentation, COPD Associated Symptoms: shortness of breath, weakness, foul smelling urine Treatments Prior to Arrival: IV fluid, oxygen - Related Data Home Medications Medication Instructions Recorded Confirmed Cyclobenzaprine [Flexeril] 10 mg PO HS 07/11/14 07/10/22 Omeprazole [PriLOSEC] 20 mg PO DAILY 08/05/14 07/10/22 Fenofibrate 160 mg PO DAILY 05/27/16 07/10/22 allopurinoL [Allopurinol] 100 mg PO DAILY 05/27/16 07/10/22 Glimepiride [Amaryl] 8 mg PO DAILY 06/28/17 07/10/22 rOPINIRole HCL [Requip] 0.25 mg PO HS 06/02/18 07/10/22 Atorvastatin [Lipitor] 80 mg PO HS 01/21/22 07/10/22 Empagliflozin [Jardiance] 25 mg PO DAILY 01/21/22 07/10/22 Ergocalciferol (Vitamin D2) 1,250 mcg PO MO 01/21/22 07/10/22 [Drisdol (50,000 Iu)] Magnesium Oxide [Magox 400] 400 mg PO DAILY 01/21/22 07/10/22 Pregabalin [Lyrica] 150 mg PO BID 01/21/22 07/10/22 metFORMIN HCL [Glucophage] 1,000 mg PO BID 01/21/22 07/10/22 Albuterol Sulfate [Proair Hfa] 2 puff INHALATION RT-Q6H PRN 03/20/22 07/10/22 Dulaglutide [Trulicity] 0.75 mg SQ TH 03/20/22 07/10/22 Previous Rx's Medication Instructions Recorded Furosemide [Lasix] 40 mg PO BID@0900,1600 30 Days #60 07/14/22 tab HYDROcodone/APAP 7.5-325MG [[place] 1 each PO Q8HR PRN #6 tab 07/14/22 7.5-325] Ipratropium-Albuterol Nebulize 3 ml INHALATION RT-Q4H PRN #120 07/14/22 [Duoneb 0.5 mg-3 mg/3 ml Soln] each Nicotine 14Mg/24Hr Patch [Habitrol] 1 patch TRANSDERM DAILY #20 patch 07/14/22 Allergies Allergy/AdvReac Type Severity Reaction Status Date / Time codeine AdvReac Severe Abdominal Verified 07/10/22 11:56 Pain Review of Systems ROS Statement: Those systems with pertinent positive or pertinent negative responses have been documented in the HPI. ROS Other: All systems not noted in ROS Statement are negative. Past Medical History Past Medical History: COPD, Diabetes Mellitus, Eye Disorder, GERD/Reflux, Hyperlipidemia, Hypertension, Osteoarthritis (OA) Additional Past Medical History / Comment(s): Start of glaucoma. "Knees have been giving out." DDD. Stage 1 Emphysema, gout, lower back and left hip pain, History of Any Multi-Drug Resistant Organisms: None Reported Past Surgical History: Back Surgery, Section, Cholecystectomy, Tubal Ligation Additional Past Surgical History / Comment(s): MARBIN PLACED FOR SCOLIOSIS as child. mult left breast biopsy, Past Anesthesia/Blood Transfusion Reactions: No Reported Reaction Smoking Status: Current every day smoker - Past Family History Brother(s) Family Medical History: Diabetes Mellitus Mother Family Medical History: Cancer Father Family Medical History: Cancer General Exam Limitations: altered mental status, physical limitation General appearance: alert, anxious, lethargic, in distress Head exam: Present: atraumatic, normocephalic, normal inspection Eye exam: Present: normal appearance, PERRL, EOMI. Absent: scleral icterus, conjunctival injection, periorbital swelling ENT exam: Present: normal exam, mucous membranes moist Neck exam: Present: normal inspection. Absent: tenderness, meningismus, lymphadenopathy Respiratory exam: Present: normal lung sounds bilaterally. Absent: respiratory distress, wheezes, rales, rhonchi, stridor Cardiovascular Exam: Present: regular rate, normal rhythm, normal heart sounds. Absent: systolic murmur, diastolic murmur, rubs, gallop, clicks GI/Abdominal exam: Present: soft, normal bowel sounds. Absent: distended, tenderness, guarding, rebound, rigid Extremities exam: Present: normal inspection, full ROM, normal capillary refill. Absent: tenderness, pedal edema, joint swelling, calf tenderness Back exam: Present: normal inspection Neurological exam: Present: alert, oriented X3, CN II-XII intact Psychiatric exam: Present: normal affect, normal mood Skin exam: Present: warm, dry, intact, normal color. Absent: rash Course Vital Signs 09/14/22 09/14/22 09/14/22 02:05 02:10 02:34 Temperature 98.3 F Pulse Rate 92 93 Respiratory 16 18 Rate Blood Pressure 125/90 126/90 O2 Sat by Pulse 40 L 100 97 Oximetry - Reevaluation(s) Reevaluation #1: 09/14/22 02:12 Medical records reviewed : Alteplase paged on patient's arrival to the ER Reevaluation #2: 09/14/22 02:13 Patient found to be significantly hypoxic, improving with nonrebreather Reevaluation #3: 09/14/22 03:40 Patient is significantly continued remained improved mental status on oxygen therapy will Reevaluation #4: 09/14/22 03:40 Patient informed results and questions answered - Consultations Consultation #1: Spoke with admitting physicians agreeable with the patient Medical Decision Making - Medical Decision Making 62 female DF for evaluation of code stroke, no TPA candidate secondary nonfocal signs. Patient was found to be severely hypoxic to be altered mental status which improved on nonrebreather patient will be admitted for a story distress and hypoxia - Lab Data Result diagrams: 09/14/22 02:12 09/14/22 02:12 Lab Results 09/14/22 09/14/22 09/14/22 Range/Units 02:07 02:12 02:12 WBC 13.3 H (3.8-10.6) k/uL RBC 4.47 (3.80-5.40) m/uL Hgb 11.2 L (11.4-16.0) gm/dL Hct 35.6 (34.0-46.0) % MCV 79.6 L (80.0-100.0) fL MCH 25.2 (25.0-35.0) pg MCHC 31.6 (31.0-37.0) g/dL RDW 18.2 H (11.5-15.5) % Plt Count 315 (150-450) k/uL MPV 8.3 Neutrophils % (Manual) 78 % Band Neuts % (Manual) 1 % Lymphocytes % (Manual) 14 % Monocytes % (Manual) 7 % Basophils % (Manual) 1 % Neutrophils # (Manual) 10.50 H (1.3-7.7) k/uL Lymphocytes # (Manual) 1.86 (1.0-4.8) k/uL Monocytes # (Manual) 0.93 (0-1.0) k/uL Basophils # (Manual) 0.13 (0-0.2) k/uL Nucleated RBCs 2 H (0-0) /100 WBC Manual Slide Review Performed Large Platelets Present Polychromasia Present Hypochromasia Marked Poikilocytosis Slight Anisocytosis Slight Microcytosis Slight PT 14.8 H (9.0-12.0) sec INR 1.4 H (<1.2) APTT 22.7 (22.0-30.0) sec Sodium (137-145) mmol/L Potassium (3.5-5.1) mmol/L Chloride (98-107) mmol/L Carbon Dioxide (22-30) mmol/L Anion Gap mmol/L BUN (7-17) mg/dL Creatinine (0.52-1.04) mg/dL Est GFR (CKD-EPI)AfAm (>60 ml/min/1.73 sqM) Est GFR (CKD-EPI)NonAf (>60 ml/min/1.73 sqM) Glucose (74-99) mg/dL POC Glucose (mg/dL) 114 H (70-110) mg/dL POC Glu [employer] ID Kallek, Silvia Calcium (8.4-10.2) mg/dL Total Bilirubin (0.2-1.3) mg/dL AST (14-36) U/L ALT (4-34) U/L Alkaline Phosphatase (38-126) U/L Troponin I (0.000-0.034) ng/mL Total Protein (6.3-8.2) g/dL Albumin (3.5-5.0) g/dL Urine Color Urine Appearance (Clear) Urine pH (5.0-8.0) Ur Specific [place] (1.001-1.035) Urine Protein (Negative) Urine Glucose (UA) (Negative) Urine Ketones (Negative) Urine Blood (Negative) Urine Nitrite (Negative) Urine Bilirubin (Negative) Urine Urobilinogen (<2.0) mg/dL Ur Leukocyte Esterase (Negative) Urine RBC (0-5) /hpf Urine WBC (0-5) /hpf Ur Squamous Epith Cells (0-4) /hpf Urine Bacteria (None) /hpf Urine Opiates Screen (NotDetected) Ur Oxycodone Screen (NotDetected) Urine Methadone Screen (NotDetected) Ur Propoxyphene Screen (NotDetected) Ur Barbiturates Screen (NotDetected) U Tricyclic Antidepress (NotDetected) Ur Phencyclidine Scrn (NotDetected) Ur Amphetamines Screen (NotDetected) U Methamphetamines Scrn (NotDetected) U Benzodiazepines Scrn (NotDetected) Urine Cocaine Screen (NotDetected) U Marijuana (THC) Screen (NotDetected) 09/14/22 09/14/22 09/14/22 Range/Units 02:12 02:12 02:34 WBC (3.8-10.6) k/uL RBC (3.80-5.40) m/uL Hgb (11.4-16.0) gm/dL Hct (34.0-46.0) % MCV (80.0-100.0) fL MCH (25.0-35.0) pg MCHC (31.0-37.0) g/dL RDW (11.5-15.5) % Plt Count (150-450) k/uL MPV Neutrophils % (Manual) % Band Neuts % (Manual) % Lymphocytes % (Manual) % Monocytes % (Manual) % Basophils % (Manual) % Neutrophils # (Manual) (1.3-7.7) k/uL Lymphocytes # (Manual) (1.0-4.8) k/uL Monocytes # (Manual) (0-1.0) k/uL Basophils # (Manual) (0-0.2) k/uL Nucleated RBCs (0-0) /100 WBC Manual Slide Review Large Platelets Polychromasia Hypochromasia Poikilocytosis Anisocytosis Microcytosis PT (9.0-12.0) sec INR (<1.2) APTT (22.0-30.0) sec Sodium 139 (137-145) mmol/L Potassium 3.2 L (3.5-5.1) mmol/L Chloride 93 L (98-107) mmol/L Carbon Dioxide 40 H (22-30) mmol/L Anion Gap 6 mmol/L BUN 24 H (7-17) mg/dL Creatinine 0.83 (0.52-1.04) mg/dL Est GFR (CKD-EPI)AfAm 87 (>60 ml/min/1.73 sqM) Est GFR (CKD-EPI)NonAf 75 (>60 ml/min/1.73 sqM) Glucose 96 (74-99) mg/dL POC Glucose (mg/dL) (70-110) mg/dL POC Glu [employer]er ID Calcium 7.8 L (8.4-10.2) mg/dL Total Bilirubin 0.5 (0.2-1.3) mg/dL AST 853 H (14-36) U/L ALT 210 H (4-34) U/L Alkaline Phosphatase 51 (38-126) U/L Troponin I 0.022 (0.000-0.034) ng/mL Total Protein 5.5 L (6.3-8.2) g/dL Albumin 3.3 L (3.5-5.0) g/dL Urine Color Light Yellow Urine Appearance Cloudy H (Clear) Urine pH 8.5 H (5.0-8.0) Ur Specific [place] 1.029 (1.001-1.035) Urine Protein 1+ H (Negative) Urine Glucose (UA) 4+ H (Negative) Urine Ketones Trace H (Negative) Urine Blood Negative (Negative) Urine Nitrite Negative (Negative) Urine Bilirubin Negative (Negative) Urine Urobilinogen <2.0 (<2.0) mg/dL Ur Leukocyte Esterase Large H (Negative) Urine RBC 3 (0-5) /hpf Urine WBC >182 H (0-5) /hpf Ur Squamous Epith Cells 1 (0-4) /hpf Urine Bacteria Rare H (None) /hpf Urine Opiates Screen Not Detected (NotDetected) Ur Oxycodone Screen Not Detected (NotDetected) Urine Methadone Screen Not Detected (NotDetected) Ur Propoxyphene Screen Not Detected (NotDetected) Ur Barbiturates Screen Not Detected (NotDetected) U Tricyclic Antidepress Not Detected (NotDetected) Ur Phencyclidine Scrn Not Detected (NotDetected) Ur Amphetamines Screen Not Detected (NotDetected) U Methamphetamines Scrn Not Detected (NotDetected) U Benzodiazepines Scrn Not Detected (NotDetected) Urine Cocaine Screen Not Detected (NotDetected) U Marijuana (THC) Screen Not Detected (NotDetected) - Radiology Data Radiology results: report reviewed (CT brain CT had neck and chest x-ray are negative for acute disease), image reviewed Disposition Clinical Impression: Shortness of breath, Hypoxemia, COPD (chronic obstructive pulmonary disease), Altered mental status, Acute respiratory failure with hypoxia Disposition: ADMITTED IP TO THIS [facility] Condition: Serious Is patient prescribed a controlled substance at d/c from ED?: No Referrals: Shun Simmons DO [Primary Care Provider] - 1-2 days Time of Disposition: 03:40
--- NOTE | 2022-09-14 02:20 | CT ---
EXAMINATION TYPE: CT brain wo con for TPA DATE OF EXAM: 09/14/2022 COMPARISON: 07/10/2022 HISTORY: AMS CT DLP: 1592.2 mGycm Automated exposure control for dose reduction was used. Images of the brain obtained with no contrast. Ventricles of normal size. There is no mass effect or midline shift. No sign of intracranial hemorrha ge. Calvarium is intact. No evidence of cerebral edema. Skull base is intact. IMPRESSION: Negative unenhanced head CT scan. No change.
--- NOTE | 2022-09-14 02:30 | CT ---
EXAMINATION TYPE: CT angio head neck DATE OF EXAM: 09/14/2022 COMPARISON: None HISTORY: Weakness CT DLP: mGycm Automated exposure control for dose reduction was used. CONTRAST: Performed , patient injected with mL of . Images obtained from the aortic arch to the vertex of the brain with the IV contrast. There are 3-D p ost processed images. Exam limited by motion. There is normal branching pattern of the great vessels and aortic arch. There is bilateral arterial flow in the subclavian arteries. There is arterial flow in the common internal and external carotid arteries bilaterally. There is plaque formation at the carotid artery bifurcati ons. Within the limits of the exam no evidence of hemodynamic arterial stenosis of the carotid arteri es. There is arterial flow in both vertebral arteries. There is arterial flow in the vertebral basila r artery system. There is arterial flow in the anterior middle and posterior cerebral arteries. No mass effect. No steve dence of intracranial aneurysm or neovascularity. No evidence of intracranial arterial stenosis. Ther e is normal enhancement of the venous sinuses. The posterior cerebral arteries appear to fill mainly through the basilar artery. IMPRESSION: Exam somewhat limited by motion. No significant angiographic abnormality. There is some atherosclerot ic plaque at the carotid bifurcations and estimated stenosis less than 20%.
[2022-09-14 02:33] LABS: INR 1.4 (<1.2); Partial Thromboplastin Time 22.7 sec (22.0-30.0); Prothrombin Time 14.8 sec (9.0-12.0)
[2022-09-14] MEDS ORDERED: ONDANSETRON 4 MG/2 ML VIAL IVP STA (02:37)
[2022-09-14 02:42] LABS: Albumin 3.3 g/dL (3.5-5.0); Calcium 7.8 mg/dL (8.4-10.2); Potassium 3.2 mmol/L (3.5-5.1); Total Bilirubin 0.5 mg/dL (0.2-1.3); Total Protein 5.5 g/dL (6.3-8.2)
[2022-09-14 02:46] LABS: Anisocytosis Slight; HCT 35.6 % (34.0-46.0); HGB 11.2 gm/dL (11.4-16.0); Hypochromasia Marked; MCH 25.2 pg (25.0-35.0); MCHC 31.6 g/dL (31.0-37.0); MCV 79.6 fL (80.0-100.0); Mean Platelet Volume 8.3; Microcytosis Slight; Platelet Count 315 k/uL (150-450); Poikilocytosis Slight; RBC 4.47 m/uL (3.80-5.40); RDW 18.2 % (11.5-15.5)
[2022-09-14 02:56] LABS: Appearance,Urine Cloudy (Clear); Bacteria,Urine Rare /hpf; Bilirubin,Urine Negative (Negative); Blood,Urine Negative (Negative); Color,Urine Light Yellow; Glucose,Urine (UA) 4+ (Negative); Ketones,Urine Trace (Negative); Leukocyte Esterase,Urine Large (Negative); Nitrite,Urine Negative (Negative); PH, Urine 8.5 (5.0-8.0); Protein,Urine 1+ (Negative); RBC,Urine 3 /hpf (0-5); Specific Gravity,Urine 1.029 (1.001-1.035); Squamous Epithelial Cell,Urine 1 /hpf (0-4); Urobilinogen,Urine <2.0 mg/dL (<2.0); WBC,Urine >182 /hpf (0-5)
[2022-09-14] MEDS ORDERED: SODIUM CHLORIDE 0.9% 50 ML MINI-BAG IV ONE (02:56)
[2022-09-14 02:59] LABS: Amphetamine Screen,Urine Not Detected (NotDetected); Barbiturate Screen,Urine Not Detected (NotDetected); Benzodiazepines Screen,Urine Not Detected (NotDetected); Cocaine Screen,Urine Not Detected (NotDetected); Methadone Screen, Urine Not Detected (NotDetected); Opiate Screen,Urine Not Detected (NotDetected); Oxycodone Screen, Urine Not Detected (NotDetected); Phencyclidine Screen,Urine Not Detected (NotDetected); Tricyclic Antidepressant,Urine Not Detected (NotDetected); Urn Cannabinoid Scrn Not Detected (NotDetected)
--- NOTE | 2022-09-14 03:19 | XR ---
EXAMINATION TYPE: XR chest 1V DATE OF EXAM: 09/14/2022 COMPARISON: 07/14/2022 HISTORY: Altered mental status TECHNIQUE: Single view FINDINGS: There is no heart failure or confluent pneumonic infiltrate. Costophrenic angles are clear. There is a left-sided spinal levi stabilizing a thoracic dextroscoliosis. Thoracic aorta is atheromat ous. There are chest leads. IMPRESSION: No active cardiopulmonary disease. No change.
[2022-09-14 03:24] LABS: Band Neutrophils % 1 %; Neutrophils % (M) 78 %; Nucleated Red Blood Cells 2 /100 WBC (0-0); Total Cells Counted 200
[2022-09-14 03:25] LABS: Basophils # (M) 0.13 k/uL (0-0.2); Large Platelets Present; Lymphocytes # (M) 1.86 k/uL (1.0-4.8); Monocytes # (M) 0.93 k/uL (0-1.0); Polychromasia Present; WBC 13.3 k/uL (3.8-10.6)
[2022-09-14] MEDS ORDERED: methylPREDNISolone SOD SUCCI 125 MG/2 ML VIAL IV STA (03:41)
[2022-09-14] MEDS ORDERED: MORPHINE SULFATE 4 MG/ML SYRINGE IV PRN (03:41)
[2022-09-14] MEDS ORDERED: IPRATROPIUM-ALBUTEROL 3 ML NEB INHALATION STA (03:41)
[2022-09-14] MEDS ORDERED: NALOXONE 0.4 MG/ML 1 ML VIAL IV PRN (03:41)
[2022-09-14] MEDS: SODIUM CHLORIDE 0.9% 1,000 ML IV SCH ×2 (03:57→13:35)
[2022-09-14] MEDS ORDERED: methylPREDNISolone SOD SUCCI 125 MG/2 ML VIAL IV SCH (06:00)
[2022-09-14] MEDS: ALBUTEROL NEBULIZED 1.25 MG/3 ML INHALATION SCH ×2 (07:50→11:14)
--- NOTE | 2022-09-14 11:04 | P.CNNES ---
History of Present Illness Consult date: 09/14/22 Requesting physician: Drew Lawrence Reason for Consult: altered mental status History of Present Illness: This is a 62-year-old woman with medical history of diabetes mellitus, hypertension, COPD who presented emergency department for slurred speech, not acting appropriately with confusion. History is obtained from medical record since patient is a poor historian. It seems to the patient was having some speech difficulty with confusion. There is a concern for stroke by the ED team as a result stroke code was activated. She was found to have hypoxia that was significant and was improving with nonrebreather. Seems of the pulse ox was 40% liters at room air and then the patient was placed on Breather 15 L As stated earlier there is initial concern for a stroke so as a result ED activity a stroke code. A CT of the head was ordered and was reported as negative unenhanced head CT scan. No change. CT angiography of the head and neck is reported as exam somewhat limited by motion. No significant drop abnormality. There is some others carotid plaque at the carotid bifurcation and estimated stenosis less than 20%. I personally could not review the CT images because she with the system. EKG is reported as sinus rhythm with occasional ventricular premature complexes. Nonspecific ST and T-wave abnormality. Borderline the EKG. As a result the patient was not given IV TPA because her symptoms was improved with nonrebreather and it was felt that her symptoms were due to hypoxia. IV TPA because the risk outweighed the benefit. Initial POC glucose is 114, AST of 850 3Y ALT of 210 ammonia level is 15. Urine analysis seems possible suggestive of 5 ureter tract infection Urine drug screen is not detected. Review of Systems Review of system is limited by the prone positive and negative as per HPI. Past Medical History Past Medical History: COPD, Diabetes Mellitus, Eye Disorder, GERD/Reflux, Hyperlipidemia, Hypertension, Osteoarthritis (OA) Additional Past Medical History / Comment(s): Start of glaucoma. "Knees have been giving out." DDD. Stage 1 Emphysema, gout, lower back and left hip pain, History of Any Multi-Drug Resistant Organisms: None Reported Past Surgical History: Back Surgery, Section, Cholecystectomy, Tubal Ligation Additional Past Surgical History / Comment(s): MARBIN PLACED FOR SCOLIOSIS as child. mult left breast biopsy, Past Anesthesia/Blood Transfusion Reactions: No Reported Reaction Smoking Status: Current every day smoker - Past Family History Brother(s) Family Medical History: Diabetes Mellitus Mother Family Medical History: Cancer Father Family Medical History: Cancer Medications and Allergies Home Medications Medication Instructions Recorded Confirmed Type Cyclobenzaprine [Flexeril] 10 mg PO HS 07/11/14 07/10/22 History Omeprazole [PriLOSEC] 20 mg PO DAILY 08/05/14 07/10/22 History Fenofibrate 160 mg PO DAILY 05/27/16 07/10/22 History allopurinoL [Allopurinol] 100 mg PO DAILY 05/27/16 07/10/22 History Glimepiride [Amaryl] 8 mg PO DAILY 06/28/17 07/10/22 History rOPINIRole HCL [Requip] 0.25 mg PO HS 06/02/18 07/10/22 History Atorvastatin [Lipitor] 80 mg PO HS 01/21/22 07/10/22 History Empagliflozin [Jardiance] 25 mg PO DAILY 01/21/22 07/10/22 History Ergocalciferol (Vitamin D2) 1,250 mcg PO MO 01/21/22 07/10/22 History [Drisdol (50,000 Iu)] Magnesium Oxide [Magox 400] 400 mg PO DAILY 01/21/22 07/10/22 History Pregabalin [Lyrica] 150 mg PO BID 01/21/22 07/10/22 History metFORMIN HCL [Glucophage] 1,000 mg PO BID 01/21/22 07/10/22 History Albuterol Sulfate [Proair Hfa] 2 puff INHALATION RT-Q6H PRN 03/20/22 07/10/22 History Dulaglutide [Trulicity] 0.75 mg SQ TH 03/20/22 07/10/22 History Furosemide [Lasix] 40 mg PO BID@0900,1600 30 Days #60 07/14/22 Rx tab HYDROcodone/APAP 7.5-325MG [[place] 1 each PO Q8HR PRN #6 tab 07/14/22 Rx 7.5-325] Ipratropium-Albuterol Nebulize 3 ml INHALATION RT-Q4H PRN #120 07/14/22 Rx [Duoneb 0.5 mg-3 mg/3 ml Soln] each Nicotine 14Mg/24Hr Patch [Habitrol] 1 patch TRANSDERM DAILY #20 patch 07/14/22 Rx Allergies Allergy/AdvReac Type Severity Reaction Status Date / Time codeine AdvReac Severe Abdominal Verified 07/10/22 11:56 Pain Physical Examination - Vital Signs Vital Signs: Vital Signs Temp Pulse Resp BP Pulse Ox 09/14/22 09:54 93 22 94 L 09/14/22 09:00 92 22 118/83 94 L 09/14/22 07:59 89 09/14/22 07:50 86 09/14/22 07:44 89 18 137/77 95 09/14/22 06:33 87 16 124/75 94 L 09/14/22 05:00 88 12 134/77 94 L 09/14/22 04:31 96 09/14/22 04:30 84 L 09/14/22 04:27 90 09/14/22 04:25 92 16 135/75 99 09/14/22 04:20 94 09/14/22 02:34 93 18 126/90 97 09/14/22 02:10 100 09/14/22 02:05 98.3 F 92 16 125/90 40 L Intake and Output 09/13/22 09/14/22 09/14/22 22:59 06:59 14:59 Other: Weight 84 kg GENERAL: The patient is lying in bed and is not in acute distress. CHEST: The heart rate is regular rate rhythm. No murmurs to auscultation. LUNG: Clear to auscultation bilaterally no wheezing noted throughout. Not labored breathing. ABDOMEN/GI: Bowel sounds present in all 4 quadrants. No tenderness to palpation throughout. NEUROLOGICAL: Higher mental function: The patient is awake, alert, oriented to self. She stated she was in the hospital and stated it was called . She could not tell me month or year. She had preservation of words and kept on repeating "MM" which seems expressive aphasia. No neglect. She is following simple commands. Cranial nerves: The pupils are round, equal and reactive to light. Visual marquez is hard to assess because of cooepration. EOM is tracking throughout the room and no nystagmus. No facial weakness. No dysarthria. Motor: The strength is hard to assess individual muscles because of cooperation but lifting upper and lower above gravity. Normal tone and bulk. Cerebellum: Normal finger to nose hbilaterally. Sensation: Sensation is normal to touch throughout. Reflexes (right/left): 1+ throughout. Plantars are mute bilaterally. Results - Laboratory Findings CBC and BMP: 09/14/22 02:12 09/14/22 02:12 Abnormal Lab Findings: Abnormal Labs 09/14/22 09/14/22 09/14/22 02:07 02:12 02:12 WBC 13.3 H Hgb 11.2 L MCV 79.6 L RDW 18.2 H Neutrophils # (Manual) 10.50 H Nucleated RBCs 2 H PT 14.8 H INR 1.4 H Potassium Chloride Carbon Dioxide BUN POC Glucose (mg/dL) 114 H Calcium AST ALT Total Protein Albumin Urine Appearance Urine pH Urine Protein Urine Glucose (UA) Urine Ketones Ur Leukocyte Esterase Urine WBC Urine Bacteria 09/14/22 09/14/22 02:12 02:34 WBC Hgb MCV RDW Neutrophils # (Manual) Nucleated RBCs PT INR Potassium 3.2 L Chloride 93 L Carbon Dioxide 40 H BUN 24 H POC Glucose (mg/dL) Calcium 7.8 L AST 853 H ALT 210 H Total Protein 5.5 L Albumin 3.3 L Urine Appearance Cloudy H Urine pH 8.5 H Urine Protein 1+ H Urine Glucose (UA) 4+ H Urine Ketones Trace H Ur Leukocyte Esterase Large H Urine WBC >182 H Urine Bacteria Rare H Assessment and Plan Assessment: Patient has some speech difficulty with preservation of words appears expressive aphasia. Rule out acute/subacute stroke. Confusion due to hypoxic encephalopathy (had pulse oxygen as low as 40% on presentation) Acute COPD exacerbation Elevated liver function tests with AST more than ALT but denies any alcohol use Possible underlying urinary tract infection Diabetes mellitus Plan: I ordered MRI of the brain to assess if any stroke If she does have acute subacute stroke THE rest of the stroke workup. She artery had CT angiography of the head and neck which the did not reveal any significant intracranial or carotid stenosis. Ordered routine EEG to rule out any seizure or discharges Placed on every 4 hours neuro checks On cardiac monitoring Consulted speech therapy Pulmonary team is on board We'll defer the rest of the medical management to the primary team Thank you for the consultation UPDATE at 14:20: Preliminary Routine EEG showed rare left frontal epileptiform discharges which can increase risk for seizure or status. Background slowing is moderate to severe encephalopathy (worse in first half and improves on second half). Triphasic morphology likely due to toxic-metabolic abnormality. No seizures. As result of discharges seen on EEG, I loading the patient Keppra 1500mg once then Keppra 750mg every 12 hours. Changed MRI Brain from wo to with and w/o seizure protocol. Will get repeat EEG tomorrow. Time with Patient: Greater than 30
--- NOTE | 2022-09-14 12:18 | P.CNPUL ---
History of Present Illness Consult date: 09/14/22 Requesting physician: Lauren Rios Reason for consult: dyspnea, COPD Chief complaint: Altered mental status History of present illness: This is a very pleasant 62-year-old female patient with a known history of chronic obstructive pulmonary disease, diabetes mellitus, gastroesophageal reflux disease, hyperlipidemia, hypertension, gout and chronic and ongoing tobacco dependence. She was last seen in our office in April 2020. She presented to the emergency room early this morning approximately 2 AM with altered mental status, slurred speech, confusion. Computed tomography scan of the brain revealed no acute abnormalities. CT angiography of the head and neck revealed no significant abnormalities. Some sclerotic plaque at the carotid bifurcations with estimated stenosis less than 20%. White count 13.3. Hemoglobin 11.2. Sodium 139. Potassium 3.2. Chloride 93. Bicarb 40. BUN 24. Creatinine 0.83. Glucose 114. AST 1 853. ALT 210. Ammonia level 15. Urine drug screen negative. Urinalysis cloudy with large leukocyte esterase and greater than 182 WBCs. Rare bacteria. She did have significant hypoxemia in the 40s on room air initially. Currently 94% on 4 L nasal cannula. His x-ray revealed no acute pulmonary process. She is seen today in consultation in the emergency department. She is currently sitting up in a stretcher. Awake and alert. She does have significant expressive aphasia. Not answering questions appropriately. When asked what year this is she responds 7000. When asked to her medical doctor she states medical. She does state that she is at the hospital. She has received 1 L of fluid resuscitation. Currently on normal saline at 130 ML's per hour. Review of Systems ROS unobtainable: due to mental status Past Medical History Past Medical History: COPD, Diabetes Mellitus, Eye Disorder, GERD/Reflux, Hyperlipidemia, Hypertension, Osteoarthritis (OA) Additional Past Medical History / Comment(s): Start of glaucoma. "Knees have been giving out." DDD. Stage 1 Emphysema, gout, lower back and left hip pain, History of Any Multi-Drug Resistant Organisms: None Reported Past Surgical History: Back Surgery, Section, Cholecystectomy, Tubal Ligation Additional Past Surgical History / Comment(s): MARBIN PLACED FOR SCOLIOSIS as child. mult left breast biopsy, Past Anesthesia/Blood Transfusion Reactions: No Reported Reaction Smoking Status: Current every day smoker - Past Family History Brother(s) Family Medical History: Diabetes Mellitus Mother Family Medical History: Cancer Father Family Medical History: Cancer Medications and Allergies Home Medications Medication Instructions Recorded Confirmed Type Cyclobenzaprine [Flexeril] 10 mg PO HS 07/11/14 07/10/22 History Omeprazole [PriLOSEC] 20 mg PO DAILY 08/05/14 07/10/22 History Fenofibrate 160 mg PO DAILY 05/27/16 07/10/22 History allopurinoL [Allopurinol] 100 mg PO DAILY 05/27/16 07/10/22 History Glimepiride [Amaryl] 8 mg PO DAILY 06/28/17 07/10/22 History rOPINIRole HCL [Requip] 0.25 mg PO HS 06/02/18 07/10/22 History Atorvastatin [Lipitor] 80 mg PO HS 01/21/22 07/10/22 History Empagliflozin [Jardiance] 25 mg PO DAILY 01/21/22 07/10/22 History Ergocalciferol (Vitamin D2) 1,250 mcg PO MO 01/21/22 07/10/22 History [Drisdol (50,000 Iu)] Magnesium Oxide [Magox 400] 400 mg PO DAILY 01/21/22 07/10/22 History Pregabalin [Lyrica] 150 mg PO BID 01/21/22 07/10/22 History metFORMIN HCL [Glucophage] 1,000 mg PO BID 01/21/22 07/10/22 History Albuterol Sulfate [Proair Hfa] 2 puff INHALATION RT-Q6H PRN 03/20/22 07/10/22 History Dulaglutide [Trulicity] 0.75 mg SQ TH 03/20/22 07/10/22 History Furosemide [Lasix] 40 mg PO BID@0900,1600 30 Days #60 07/14/22 Rx tab HYDROcodone/APAP 7.5-325MG [[place] 1 each PO Q8HR PRN #6 tab 07/14/22 Rx 7.5-325] Ipratropium-Albuterol Nebulize 3 ml INHALATION RT-Q4H PRN #120 07/14/22 Rx [Duoneb 0.5 mg-3 mg/3 ml Soln] each Nicotine 14Mg/24Hr Patch [Habitrol] 1 patch TRANSDERM DAILY #20 patch 07/14/22 Rx Allergies Allergy/AdvReac Type Severity Reaction Status Date / Time codeine AdvReac Severe Abdominal Verified 07/10/22 11:56 Pain Physical Exam Vitals: Vital Signs Temp Pulse Resp BP Pulse Ox 09/14/22 11:24 90 09/14/22 11:14 95 09/14/22 09:54 93 22 94 L 09/14/22 09:00 92 22 118/83 94 L 09/14/22 07:59 89 09/14/22 07:50 86 09/14/22 07:44 89 18 137/77 95 09/14/22 06:33 87 16 124/75 94 L 09/14/22 05:00 88 12 134/77 94 L 09/14/22 04:31 96 09/14/22 04:30 84 L 09/14/22 04:27 90 09/14/22 04:25 92 16 135/75 99 09/14/22 04:20 94 09/14/22 02:34 93 18 126/90 97 09/14/22 02:10 100 09/14/22 02:05 98.3 F 92 16 125/90 40 L Intake and Output 09/13/22 09/14/22 09/14/22 22:59 06:59 14:59 Other: Weight 84 kg GENERAL EXAM: Alert, 62-year-old female, on 4 L nasal cannula, expressive aphasia, comfortable in no apparent distress. HEAD: Normocephalic. EYES: Normal reaction of pupils, equal size. NOSE: Clear with pink turbinates. THROAT: No erythema or exudates. NECK: No masses, no JVD. CHEST: No chest wall deformity. LUNGS: Equal air entry with no crackles, wheeze, rhonchi or dullness. CVS: S1 and S2 normal with no audible murmur, regular rhythm. ABDOMEN: No hepatosplenomegaly, normal bowel sounds, no guarding or rigidity. SPINE: No scoliosis or deformity SKIN: No rashes CENTRAL NERVOUS SYSTEM: Expressive aphasia, no significant weakness noted. No focal deficits, tone is normal in all 4 extremities. EXTREMITIES: There is no peripheral edema. No clubbing, no cyanosis. Peripheral pulses are intact. Results - Laboratory Findings CBC and BMP: 09/14/22 02:12 09/14/22 02:12 PT/INR, D-dimer PT 14.8 sec (9.0-12.0) H 09/14/22 02:12 INR 1.4 (<1.2) H 09/14/22 02:12 Abnormal lab findings: Abnormal Labs 09/14/22 09/14/22 09/14/22 02:07 02:12 02:12 WBC 13.3 H Hgb 11.2 L MCV 79.6 L RDW 18.2 H Neutrophils # (Manual) 10.50 H Nucleated RBCs 2 H PT 14.8 H INR 1.4 H Potassium Chloride Carbon Dioxide BUN POC Glucose (mg/dL) 114 H Calcium AST ALT Total Protein Albumin Urine Appearance Urine pH Urine Protein Urine Glucose (UA) Urine Ketones Ur Leukocyte Esterase Urine WBC Urine Bacteria 09/14/22 09/14/22 02:12 02:34 WBC Hgb MCV RDW Neutrophils # (Manual) Nucleated RBCs PT INR Potassium 3.2 L Chloride 93 L Carbon Dioxide 40 H BUN 24 H POC Glucose (mg/dL) Calcium 7.8 L AST 853 H ALT 210 H Total Protein 5.5 L Albumin 3.3 L Urine Appearance Cloudy H Urine pH 8.5 H Urine Protein 1+ H Urine Glucose (UA) 4+ H Urine Ketones Trace H Ur Leukocyte Esterase Large H Urine WBC >182 H Urine Bacteria Rare H - Diagnostic Findings Chest x-ray: image reviewed Assessment and Plan Assessment: Altered mental status with expressive aphasia of unclear etiology. Possible subacute stroke. Computed tomography scan of the brain and CT angiograms revealed no significant abnormalities. Suspect urinary tract infection, cultures pending Transaminitis of unclear etiology, ammonia level within normal limits Acute hypoxemic respiratory failure with initial pulse ox in the 40s and currently in the 90s on 4 L nasal cannula Acute exacerbation of chronic obstructive pulmonary disease Chronic and ongoing tobacco dependence History of diabetes mellitus History of hyperlipidemia Hypertension Osteoarthritis. History of gout Plan: The patient was seen and evaluated Chest x-ray, CAT scan and labs reviewed Discontinue IV Solu-Medrol Initiate Pulmicort and Perforomist inhalations Check ammonia level Check pro-calcitonin Neurology consult Titrate the FiO2 as tolerated We will continue to follow and make further recommendations based on her clinica l status I have personally seen and examined the patient, performed the documentation and the assessment and plan as written. Number of minutes spent on the visit: 20.
[2022-09-14] MEDS ORDERED: IPRATROPIUM-ALBUTEROL 3 ML NEB INHALATION PRN (12:56)
[2022-09-14] MEDS ORDERED: DEXTROSE 50% SYRINGE 50 ML IVP PRN ×2 (12:57)
[2022-09-14] MEDS: methylPREDNISolone SOD SUCCI 125 MG/2 ML VIAL IV SCH ×2 (13:42→22:21)
[2022-09-14] MEDS ORDERED: levETIRAcetam IV 1,500 MG in SALINE 1 100ML.BAG IVPB STA (14:19)
[2022-09-14] MEDS: IPRATROPIUM-ALBUTEROL 3 ML NEB INHALATION SCH ×2 (15:08→20:09)
[2022-09-14] MEDS: FORMOTEROL FUMARATE 20 MCG/2 ML NEBU INHALATION SCH (20:09)
[2022-09-14] MEDS: BUDESONIDE 1 MG/2 ML NEBU INHALATION SCH (20:09)
[2022-09-14 20:34] LABS: Glucose,Whole Blood 169 mg/dL (70-110)
[2022-09-14] MEDS: INSULIN ASPART (NovoLOG) 100 UNIT/ML VIAL SQ SCH ×2 (22:03→22:21)
[2022-09-14] MEDS: HEPARIN SODIUM,PORCINE/PF 5,000 UNIT/0.5 ML SYRINGE SQ SCH (22:12)
--- NOTE | 2022-09-14 23:12 | HP ---
HISTORY AND PHYSICAL CHIEF COMPLAINT: Shortness of breath and change in mental status. HISTORY OF PRESENT ILLNESS: This 62-year-old woman with a past medical history of multiple medical problems including COPD, diabetes, and was found to have shortness of breath and some confusion. The patient came to [facility], where UTI was diagnosed. The patient also was suspected to have a stroke, but CT scan did not show acute abnormality. There is no history of any fever, rigors, or chills at this time. PAST MEDICAL HISTORY: Reviewed and include diabetes mellitus and GERD. Rest of the history and chart reviewed. HOME MEDICATION: Also reviewed, Requip, dose and all the other medication also reviewed. ALLERGIES: Codeine. FAMILY HISTORY: History of cervical cancer. SOCIAL HISTORY: History of smoking. REVIEW OF SYSTEMS: Could not be taken because the patient is mildly confused. PHYSICAL EXAMINATION: VITAL SIGNS: Pulse 93, blood pressure 118/83, respirations 22, temperature normal, pulse ox 94% on 4 L. HEENT: Conjunctivae normal. NECK: No JVD. CARDIOVASCULAR: S1, S2. RESPIRATION: Breath sounds diminished at the bases. Bilateral scattered rhonchi and crackles. Expiratory wheezing. ABDOMEN: Soft, nontender. NERVOUS SYSTEM: Diffusely weak. No focal deficit. SKIN: No ulcer. JOINTS: No active deforming arthropathy. LABORATORY DATA: Reviewed. WBC 13.3. ASSESSMENT: 1. Change in mental status, rule out acute stroke. 2. Chronic obstructive pulmonary disease acute exacerbation with acute purulent tracheobronchitis. 3. Acute urinary tract infection, present on admission. 4. Diabetes mellitus, type 2. 5. Multiple medical issues. RECOMMENDATIONS: In this 62-year-old woman, presented with multiple complex medical issues, we will monitor the patient closely. We will initiate broad-spectrum antibiotics and also bronchodilators, steroids. Closely follow with Neurology as well as Pulmonology. Guarded prognosis. See orders for further details. MMODL / IJN: [id number] /
[2022-09-15] MEDS: methylPREDNISolone SOD SUCCI 125 MG/2 ML VIAL IV SCH ×5 (01:35→23:30)
[2022-09-15] MEDS: SODIUM CHLORIDE 0.9% 1,000 ML IV SCH ×2 (01:35→21:25)
--- NOTE | 2022-09-15 02:06 | EEG ---
ELECTROENCEPHALOGRAM REPORT CLINICAL HISTORY: This is a 62-year-old woman with confusion. The video EEG is obtained to evaluate for seizure epileptiform activity. RELEVANT MEDICATION: Lyrica. DESCRIPTION: Background during the first half of the study consists of 5.5 hertz to 6.5 hertz theta activity and at times, the background consists of diffuse delta slowing. During the second half of the study, there is improvement in the background and improved predominantly to the background of 6 to 6.5 hertz theta activity. There was no physiological sleep architecture seen. There is no focal slowing. During predominantly the first half of the study, there is [id number] lag with triphasic morphology that is sharply contoured. INTERICTAL AND ICTAL: There is rare sharp and slow waves, and it appears predominantly on the left frontal compared to the right frontal. There is no appreciable seizure-like activity seen. ACTIVATION PROCEDURE: Photic stimulation and hyperventilation are not performed because of the patient's cooperation. CLINICAL INTERPRETATION: This is an abnormal routine EEG. The background slowing is suggestive of moderate-to- severe predominantly during the first half of the study, but improved to moderate during the second half of the study. There is rare epileptiform discharges that appears predominantly on the left frontal, which increases risk for seizure and status. No seizure is seen. The triphasic morphology is likely as a result of toxic metabolic abnormality. Recommend repeating EEG. Clinical correlation is recommended. CHIDI / VICENTE: [id number] / MTDD
[2022-09-15 06:19] LABS: Glucose,Whole Blood 161 mg/dL (70-110)
[2022-09-15] MEDS: INSULIN ASPART (NovoLOG) 100 UNIT/ML VIAL SQ SCH ×4 (06:35→20:18)
[2022-09-15] MEDS: PANTOPRAZOLE 40 MG TABLET PO SCH (06:35)
[2022-09-15 08:01] LABS: Anisocytosis Slight; Basophils % (A) 0 %; Eosinophils % (A) 0 %; HCT 37.8 % (34.0-46.0); HGB 11.7 gm/dL (11.4-16.0); Hypochromasia Marked; Lymphocytes # (A) 0.8 k/uL (1.0-4.8); Lymphocytes % (A) 9 %; MCH 25.3 pg (25.0-35.0); MCHC 30.8 g/dL (31.0-37.0); Mean Platelet Volume 8.8; Monocytes # (A) 0.3 k/uL (0-1.0); Monocytes % (A) 3 %; Neutrophils # (A) 8.4 k/uL (1.3-7.7); Neutrophils % (A) 88 %; Platelet Count 303 k/uL (150-450); Poikilocytosis Slight; RBC 4.61 m/uL (3.80-5.40); RDW 18.4 % (11.5-15.5); WBC 9.6 k/uL (3.8-10.6)
[2022-09-15 08:12] LABS: ALT 215 U/L (4-34); AST 302 U/L (14-36); African American GFR (CKD) >90 (>60 ml/min/1.73 sqM); Albumin 3.7 g/dL (3.5-5.0); Alkaline Phosphatase 56 U/L (38-126); Anion Gap 10 mmol/L; Blood Urea Nitrogen 23 mg/dL (7-17); Calcium 8.6 mg/dL (8.4-10.2); Carbon Dioxide 29 mmol/L (22-30); Chloride 100 mmol/L (98-107); Glucose 161 mg/dL (74-99); Magnesium 1.7 mg/dL (1.6-2.3); Non-African American GFR(CKD) >90 (>60 ml/min/1.73 sqM); Phosphorus 2.6 mg/dL (2.5-4.5); Potassium 3.6 mmol/L (3.5-5.1); Sodium 139 mmol/L (137-145); Total Bilirubin 0.5 mg/dL (0.2-1.3); Total Protein 5.8 g/dL (6.3-8.2)
[2022-09-15] MEDS: BUDESONIDE 1 MG/2 ML NEBU INHALATION SCH ×2 (08:26→20:20)
[2022-09-15] MEDS: IPRATROPIUM-ALBUTEROL 3 ML NEB INHALATION SCH ×4 (08:26→20:20)
[2022-09-15] MEDS: FORMOTEROL FUMARATE 20 MCG/2 ML NEBU INHALATION SCH ×2 (08:39→20:20)
[2022-09-15] MEDS: HEPARIN SODIUM,PORCINE/PF 5,000 UNIT/0.5 ML SYRINGE SQ SCH ×2 (08:53→20:18)
--- NOTE | 2022-09-15 12:20 | P.PN ---
Subjective Progress Note Date: 09/15/22 The patient is seen at bedside and feels she is doing better and denies any new neurological issues. Per nurse, she is about the same. Objective - Vital Signs Vital signs: Vital Signs Temp 97.4 F L 09/15/22 08:49 Pulse 99 09/15/22 08:49 Resp 18 09/15/22 08:49 BP 113/75 09/15/22 08:49 Pulse Ox 98 09/15/22 08:49 FiO2 Intake & Output 09/14/22 09/15/22 09/15/22 18:59 06:59 18:59 Intake Total 180 Output Total 300 Balance -300 180 Weight 84 kg Intake: Oral 180 Output: Urine 300 Other: Voiding Method External Catheter External Catheter # Bowel Movements 1 - Exam GENERAL: The patient is lying in bed and is not in acute distress. NEUROLOGICAL: Higher mental function: The patient is awake, alert, oriented to self and place. She stated the current year correctly but could not tell me month. She seems more responsive today but continues to have some preservation of words (watch). No neglect. She is following simple commands. Cranial nerves: The pupils are round, equal and reactive to light. Visual marquez is hard to assess because of cooepration. EOM is tracking throughout the room and no nystagmus. No facial weakness. No dysarthria. Motor: The strength is hard to assess individual muscles because of cooperation but lifting upper and lower above gravity. Normal tone and bulk. Cerebellum: Normal finger to nose hbilaterally. Sensation: Sensation is normal to touch throughout. Reflexes (right/left): 1+ throughout. Plantars are mute bilaterally. SOME OF THE WORK-UP DURING THIS HOSPITAL VISIT CONSISTED OF: CT angiography of the head and neck is reported as exam somewhat limited by motion. No significant drop abnormality. There is some others carotid plaque at the carotid bifurcation and estimated stenosis less than 20%. I personally could not review the CT images because she with the system. EKG is reported as sinus rhythm with occasional ventricular premature complexes. Nonspecific ST and T-wave abnormality. Borderline the EKG. As a result the patient was not given IV TPA because her symptoms was improved with nonrebreather and it was felt that her symptoms were due to hypoxia. IV TPA because the risk outweighed the benefit. Initial POC glucose is 114, AST of 850 3Y ALT of 210 ammonia level is 15. Urine analysis seems possible suggestive of 5 ureter tract infection Urine drug screen is not detected. Routine EEG on 09/14/2022 is abnormal. The back of slowing is suggestive of moderate to severe encephalopathy predominantly in the first half of the study but improves to moderate during the second half of the study. There is rare epileptiform discharges that appears predominantly left frontal which creases risk for seizures and status. No seizures seen. The triphasic morphology is likely is a result of toxic metabolic abnormality. Recommend repeating EEG. - Labs CBC & Chem 7: 09/15/22 07:12 09/15/22 07:12 Labs: Abnormal Lab Results - Last 24 Hours (Table) 09/14/22 09/14/22 09/14/22 Range/Units 02:12 09:50 20:33 MCHC (31.0-37.0) g/dL RDW (11.5-15.5) % Neutrophils # (1.3-7.7) k/uL Lymphocytes # (1.0-4.8) k/uL BUN (7-17) mg/dL Glucose (74-99) mg/dL POC Glucose (mg/dL) 169 H (70-110) mg/dL Hemoglobin A1c 7.3 H (0.0-6.0) % AST (14-36) U/L ALT (4-34) U/L Total Protein (6.3-8.2) g/dL Procalcitonin 0.14 H (0.02-0.09) ng/mL 09/15/22 09/15/22 09/15/22 Range/Units 06:17 07:12 07:12 MCHC 30.8 L (31.0-37.0) g/dL RDW 18.4 H (11.5-15.5) % Neutrophils # 8.4 H (1.3-7.7) k/uL Lymphocytes # 0.8 L (1.0-4.8) k/uL BUN 23 H (7-17) mg/dL Glucose 161 H (74-99) mg/dL POC Glucose (mg/dL) 161 H (70-110) mg/dL Hemoglobin A1c (0.0-6.0) % AST 302 H (14-36) U/L ALT 215 H (4-34) U/L Total Protein 5.8 L (6.3-8.2) g/dL Procalcitonin (0.02-0.09) ng/mL Assessment and Plan Assessment: Patient has some speech difficulty with preservation of words appears expressive aphasia. Cannot rule out seizure (since had discharges on left frontal on routine EEG). Also rule out acute stroke or any ?brain mass. Confusion due to hypoxic encephalopathy (had pulse oxygen as low as 40% on presentation) Acute COPD exacerbation Elevated liver function tests with AST more than ALT but denies any alcohol use Possible underlying urinary tract infection Diabetes mellitus Plan: Pending MRI Brain w/ and and w/o. Continue Keppra 750mg every 12 hours. Routine EEG on 09/14/2022 is abnormal. The back of slowing is suggestive of moderate to severe encephalopathy predominantly in the first half of the study but improves to moderate during the second half of the study. There is rare epileptiform discharges that appears predominantly left frontal which creases risk for seizures and status. No seizures seen. The triphasic morphology is likely is a result of toxic metabolic abnormality. Recommend repeating EEG. Ordered repeat EEG. Continue every 4 hours neuro checks On cardiac monitoring Consulted speech therapy Pulmonary team is on board We'll defer the rest of the medical management to the primary team The plan is discussed with the patient's nurse. UPDATE in early afternoon: Preliminary EEG is first half of EEG seems better than last half. There seems rhythmic over bilateral hemisphere during end of study that waxes and wanes that is concerning for seizure. 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 As result gave her one time dose of Ativan 2mg, one time Keppra 1500mg once and increased Keppra from 750 to 150mg every 12 hours. I updated the primary team. Patient and his refused transfer and would like repeat EEG tomorrow. But agrees if patient is worse to pursue transfer to [facility]. feels patient is close to her baseline. Will get repeat EEG and will attempt to obtain 2.5 hour EEG tomorrow. Time with Patient: Less than 30
[2022-09-15] MEDS ORDERED: LORazepam 1 MG/0.5 ML VIAL IV STA (13:14)
--- NOTE | 2022-09-15 13:14 | MR ---
EXAMINATION TYPE: MR brain wo/w con DATE OF EXAM: 09/15/2022 COMPARISON: CT brain from yesterday HISTORY: Seizure. Admitted for acute onset neural deficit one day earlier. TECHNIQUE: Multiplanar, multisequence images of the brain and brainstem is performed without and with IV contras t, utilizing 8 mL intravenous Gadavist . FINDINGS: Diffusion weighted images demonstrate no evidence of a recent infarct or other diffusion ab normality. Some motion artifact seen making evaluation slightly suboptimal. There is no extra-axial fluid collection or significant white matter signal abnormality. The ventricular system and cisterna l spaces are normal in size and appearance. The brain volume is age appropriate. No definitive abnor mal intraparenchymal blood product on T2 Star weighted images. Midline structures demonstrate normal morphology. The craniocervical junction appears within normal limits. Post contrast images demonstrate no abnormal enhancement or enhancing masses. The dural veno us sinuses appear patent. Persistent mucosal thickening and air-fluid level in the right maxillary si nus. Globes are intact bilaterally. The hippocampal gyri are thought symmetric and within normal limi ts. IMPRESSION: Suboptimal with motion artifact degradation. No MRI evidence for a recent infarct. No ab normal enhancement is seen.
[2022-09-15] MEDS ORDERED: levETIRAcetam IV 1,500 MG in SALINE 1 100ML.BAG IVPB STA (13:22)
--- NOTE | 2022-09-15 14:16 | P.PN ---
Subjective Progress Note Date: 09/15/22 Principal diagnosis: Acute metabolic encephalopathy This is a very pleasant 62-year-old female patient with a known history of chronic obstructive pulmonary disease, diabetes mellitus, gastroesophageal reflux disease, hyperlipidemia, hypertension, gout and chronic and ongoing to bacco dependence. She was last seen in our office in April 2020. She presented to the emergency room early this morning approximately 2 AM with altered mental status, slurred speech, confusion. Computed tomography scan of the brain revealed no acute abnormalities. CT angiography of the head and neck revealed no significant abnormalities. Some sclerotic plaque at the carotid bifurcations with estimated stenosis less than 20%. White count 13.3. Hemoglobin 11.2. Sodium 139. Potassium 3.2. Chloride 93. Bicarb 40. BUN 24. Creatinine 0.83. Glucose 114. AST 1 853. ALT 210. Ammonia level 15. Urine drug screen negative. Urinalysis cloudy with large leukocyte esterase and greater than 182 WBCs. Rare bacteria. She did have significant hypoxemia in the 40s on room air initially. Currently 94% on 4 L nasal cannula. His x-ray revealed no acute pulmonary process. She is seen today in consultation in the emergency department. She is currently sitting up in a stretcher. Awake and alert. She does have significant expressive aphasia. Not answering questions appropriately. When asked what year this is she responds 7000. When asked to her medical doctor she states medical. She does state that she is at the hospital. She has received 1 L of fluid resuscitation. Currently on normal saline at 130 ML's per hour. Reevaluated today on 09/15/22, patient is doing much better today, she is awake, alert, oriented 3, patient presented initially with expressive aphasia, but thi s seems to have resolved today completely. She was significantly confused yesterday on her initial presentation, today the patient is basically back to normal. She is alert and oriented 3, she does not seem to be in any distress, remains on oxygen at 4 L but her O2 saturations 98%. On physical examination she had clear breath sounds bilaterally. And again her mental status has improved significantly today CBC is normal left breast are normal renal profile is normal, liver enzymes are improving AST is down to 302 today from 853 yesterday. Neurology on the case is recommending MRI of the brain, and The patient on Keppra 750 twice a day. EEG was mostly consistent with encephalopathy, and they're epileptiform discharges noted. Neurology is recommending repeat EEG Objective - Vital Signs Vital signs: Vital Signs Temp 97.4 F L 09/15/22 08:49 Pulse 99 09/15/22 08:49 Resp 18 09/15/22 08:49 BP 113/75 09/15/22 08:49 Pulse Ox 98 09/15/22 08:49 FiO2 Intake & Output 09/14/22 09/15/22 09/15/22 18:59 06:59 18:59 Intake Total 180 Output Total 300 Balance -300 180 Weight 84 kg Intake: Oral 180 Output: Urine 300 Other: Voiding Method External Catheter External Catheter # Bowel Movements 1 - Exam Physical Exam: Revealed a 62-year-old female in no distress Head: Atraumatic normocephalic. HEENT:[Neck is supple.] [No neck masses.] [No thyromegaly.] [No JVD.] Chest: [Clear throughout, no crackles, no rhonchi, no wheezes.] Cardiac Exam: [Normal S1 and S2, no S3 gallop, no murmur.] Abdomen: [Soft, nontender, no megaly, no rebound, no guarding, normal bowel sounds.] Extremities: [No clubbing, no edema, no cyanosis.] Neurological Exam: [No focal neurologic deficit.] Psychiatric: Normal mood affect and normal mental status examination. Skin: No rashes - Labs CBC & Chem 7: 09/15/22 07:12 09/15/22 07:12 Labs: Abnormal Lab Results - Last 24 Hours (Table) 09/14/22 09/14/22 09/14/22 Range/Units 02:12 09:50 20:33 MCHC (31.0-37.0) g/dL RDW (11.5-15.5) % Neutrophils # (1.3-7.7) k/uL Lymphocytes # (1.0-4.8) k/uL BUN (7-17) mg/dL Glucose (74-99) mg/dL POC Glucose (mg/dL) 169 H (70-110) mg/dL Hemoglobin A1c 7.3 H (0.0-6.0) % AST (14-36) U/L ALT (4-34) U/L Total Protein (6.3-8.2) g/dL Procalcitonin 0.14 H (0.02-0.09) ng/mL 09/15/22 09/15/22 09/15/22 Range/Units 06:17 07:12 07:12 MCHC 30.8 L (31.0-37.0) g/dL RDW 18.4 H (11.5-15.5) % Neutrophils # 8.4 H (1.3-7.7) k/uL Lymphocytes # 0.8 L (1.0-4.8) k/uL BUN 23 H (7-17) mg/dL Glucose 161 H (74-99) mg/dL POC Glucose (mg/dL) 161 H (70-110) mg/dL Hemoglobin A1c (0.0-6.0) % AST 302 H (14-36) U/L ALT 215 H (4-34) U/L Total Protein 5.8 L (6.3-8.2) g/dL Procalcitonin (0.02-0.09) ng/mL Assessment and Plan Assessment: Altered mental status with expressive aphasia of unclear etiology. Resolved, no clear-cut etiology. Suspect urinary tract infection, cultures pending Transaminitis of unclear etiology, ammonia level within normal limits, impro ving. Acute hypoxemic respiratory failure, exact etiology is not clear but resolved, could be secondary to COPD. Acute exacerbation of chronic obstructive pulmonary disease, improved. Chronic and ongoing tobacco dependence History of diabetes mellitus History of hyperlipidemia Hypertension Osteoarthritis. History of gout Recommendation: Continue present supportive care measures Continue diagnostic workup as per neurology on the case, MRI of the brain is nondiagnostic of any pathology EEG/repeat EEG is pending Continue bronchodilators Continue Keppra Await the results of repeat EEG Consider discharge planning once cleared by neurology on the case and other consultants. We will continue to follow while inpatient Time with Patient: Less than 30
[2022-09-15 16:55] LABS: Glucose,Whole Blood 121 mg/dL (70-110)
[2022-09-15 19:59] LABS: Glucose,Whole Blood 153 mg/dL (70-110)
[2022-09-15] MEDS ORDERED: HYDROcodone/APAP 5-325MG 1 EACH TAB PO STA (20:11)
[2022-09-15] MEDS: ACETAMINOPHEN TAB 325 MG TAB PO PRN (20:18)
[2022-09-15] MEDS: levETIRAcetam IV 1,500 MG in SALINE 1 100ML.BAG IVPB SCH (20:18)
--- NOTE | 2022-09-15 22:25 | HP ---
HISTORY AND PHYSICAL SUBJECTIVE: This is a 62-year-old woman who was admitted with COPD and change in mental status, is being closely monitored. An EEG showed background slowing as well as suspected left frontal epileptiform discharges. Dr. Patel is concerned about the possible seizure disorder. MRI was suboptimal, but showed no evidence of any recent infarct. Dr. Patel recommend a referral to [facility] for 24 hour long-term EEG. PAST MEDICAL HISTORY: Reviewed. REVIEW OF SYSTEMS: A 14-point review is negative except as mentioned earlier. CURRENT MEDICATIONS: Reviewed include DuoNeb. Dose and rest of medication noted. PHYSICAL EXAMINATION: VITAL SIGNS: Pulse is 99, blood pressure 113/74, respirations 18. CHEST: A few scattered rhonchi and crackles. ABDOMEN: Soft, nontender. LEGS: No edema. NERVOUS SYSTEM: Diffusely weak. LABS: Reviewed. ASSESSMENT: 1. Change in mental status, rule out seizure disorder. 2. Abnormal EEG. 3. Chronic obstructive pulmonary disease acute exacerbation with acute purulent tracheobronchitis. 4. Acute urinary tract infection, present on admission. 5. Diabetes mellitus, type 2. 6. Multiple medical issues. RECOMMENDATIONS: Recommend to continue current medical management and symptomatic treatment. Continue the following monitoring. Continue with medications for COPD, but however, Dr. Patel is recommending transfer to the ED for a continuous EEG as mentioned earlier. We will talk with the cyanide case hardener and we will continue to monitor. Further recommendations to follow. Prognosis guarded. See orders for further details. MMODL / IJN: [id number] /
--- NOTE | 2022-09-16 02:10 | EEG ---
ELECTROENCEPHALOGRAM REPORT CLINICAL HISTORY: This is a 62-year-old woman with confusion and repeating herself. The video EEG is obtained to evaluate for seizure epileptiform activity. RELEVANT MEDICATION: Keppra. EEG TYPE: A routine 21-channel EEG is performed with video using the 10/20 electrode placement system. DESCRIPTION: During the first half of the study, the background consists of [id number]-nr-[id number] voltage of 5 to 6 hertz activity intermixed with delta. During the last half of the study, the background consists of delta slowing, at times the background consists of theta activity. There is no focal slowing. INTERICTAL AND ICTAL: During the last half of the study, there is waxing and waning of rhythmic delta activity that last less than a minute and has resolved prior to the end of the study, and prior to the delta activity, there appears to be spike/sharp proceeding the delta activity, predominantly frontal predominance. These are concerning for seizures. ACTIVATION PROCEDURE: Photic stimulation and hyperventilation is not performed. CLINICAL INTERPRETATION: This is an abnormal routine EEG. The rhythmicity during the last half of the study that was waxing and waning seems suspicious for seizure. Prior to end of the study, the rhythmicity has resolved. The background slowing during the first half of the study is moderate while the last half is moderate to severe. The last half of today's EEG study compared to yesterday (09/14/2022), seems worse. Recommend long-term EEG. Clinical correlation is recommended. MMANAIDL / PATRICIAN: [id number] / MTDD
[2022-09-16] MEDS: ACETAMINOPHEN TAB 325 MG TAB PO PRN ×3 (05:12→16:54)
[2022-09-16] MEDS: PANTOPRAZOLE 40 MG TABLET PO SCH (05:13)
[2022-09-16] MEDS: methylPREDNISolone SOD SUCCI 125 MG/2 ML VIAL IV SCH ×4 (05:13→23:08)
[2022-09-16 06:13] LABS: Glucose,Whole Blood 180 mg/dL (70-110)
[2022-09-16] MEDS: INSULIN ASPART (NovoLOG) 100 UNIT/ML VIAL SQ SCH ×4 (06:45→20:41)
[2022-09-16] MEDS: FORMOTEROL FUMARATE 20 MCG/2 ML NEBU INHALATION SCH ×2 (08:39→21:05)
[2022-09-16] MEDS: IPRATROPIUM-ALBUTEROL 3 ML NEB INHALATION SCH ×4 (08:39→21:05)
[2022-09-16] MEDS: BUDESONIDE 1 MG/2 ML NEBU INHALATION SCH ×2 (08:39→21:05)
[2022-09-16] MEDS: HEPARIN SODIUM,PORCINE/PF 5,000 UNIT/0.5 ML SYRINGE SQ SCH ×2 (09:22→20:41)
[2022-09-16] MEDS: levETIRAcetam IV 1,500 MG in SALINE 1 100ML.BAG IVPB SCH ×2 (10:37→20:41)
[2022-09-16 11:39] LABS: Glucose,Whole Blood 221 mg/dL (70-110)
--- NOTE | 2022-09-16 12:42 | P.PN ---
Subjective Progress Note Date: 09/16/22 Principal diagnosis: Acute metabolic encephalopathy This is a very pleasant 62-year-old female patient with a known history of chronic obstructive pulmonary disease, diabetes mellitus, gastroesophageal reflux disease, hyperlipidemia, hypertension, gout and chronic and ongoing to bacco dependence. She was last seen in our office in April 2020. She presented to the emergency room early this morning approximately 2 AM with altered mental status, slurred speech, confusion. Computed tomography scan of the brain revealed no acute abnormalities. CT angiography of the head and neck revealed no significant abnormalities. Some sclerotic plaque at the carotid bifurcations with estimated stenosis less than 20%. White count 13.3. Hemoglobin 11.2. Sodium 139. Potassium 3.2. Chloride 93. Bicarb 40. BUN 24. Creatinine 0.83. Glucose 114. AST 1 853. ALT 210. Ammonia level 15. Urine drug screen negative. Urinalysis cloudy with large leukocyte esterase and greater than 182 WBCs. Rare bacteria. She did have significant hypoxemia in the 40s on room air initially. Currently 94% on 4 L nasal cannula. His x-ray revealed no acute pulmonary process. She is seen today in consultation in the emergency department. She is currently sitting up in a stretcher. Awake and alert. She does have significant expressive aphasia. Not answering questions appropriately. When asked what year this is she responds 7000. When asked to her medical doctor she states medical. She does state that she is at the hospital. She has received 1 L of fluid resuscitation. Currently on normal saline at 130 ML's per hour. Reevaluated today on 09/15/22, patient is doing much better today, she is awake, alert, oriented 3, patient presented initially with expressive aphasia, but thi s seems to have resolved today completely. She was significantly confused yesterday on her initial presentation, today the patient is basically back to normal. She is alert and oriented 3, she does not seem to be in any distress, remains on oxygen at 4 L but her O2 saturations 98%. On physical examination she had clear breath sounds bilaterally. And again her mental status has improved significantly today CBC is normal left breast are normal renal profile is normal, liver enzymes are improving AST is down to 302 today from 853 yesterday. Neurology on the case is recommending MRI of the brain, and The patient on Keppra 750 twice a day. EEG was mostly consistent with encephalopathy, and they're epileptiform discharges noted. Neurology is recommending repeat EEG Reevaluated today on 09/16/22, patient continues to do well, steadily improving, her mental status is basically back to baseline. Pulmonary-gaitan the patient is doing also well. No cough no wheezing no shortness of breath, patient does have home oxygen for her underlying COPD, and she was supposed to come and see me for follow-up on her COPD . However this never happened. At any rate the patient is doing well, and I will clear the patient for possible discharge planning if cleared by other consultants/neurology. Objective - Vital Signs Vital signs: Vital Signs Temp 97.8 F 09/16/22 09:41 Pulse 95 09/16/22 11:54 Resp 18 09/16/22 09:41 BP 133/64 09/16/22 09:41 Pulse Ox 99 09/16/22 09:41 FiO2 Intake & Output 09/15/22 09/16/22 09/16/22 18:59 06:59 18:59 Intake Total 180 118 Output Total 900 500 Balance -720 -382 Weight 84 kg Intake: Oral 180 118 Output: Urine 900 500 Other: Voiding Method External Catheter External Catheter External Catheter # Voids 2 # Bowel Movements 1 - Exam Physical Exam: Revealed a 62-year-old female in no distress, on 2 L nasal cannula Head: Atraumatic normocephalic. HEENT:[Neck is supple.] [No neck masses.] [No thyromegaly.] [No JVD.] Chest: [Clear throughout, no crackles, no rhonchi, no wheezes.] Cardiac Exam: [Normal S1 and S2, no S3 gallop, no murmur.] Abdomen: [Soft, nontender, no megaly, no rebound, no guarding, normal bowel sounds.] Extremities: [No clubbing, no edema, no cyanosis.] Neurological Exam: [No focal neurologic deficit.] Psychiatric: Normal mood affect and normal mental status examination. Skin: No rashes - Labs CBC & Chem 7: 09/15/22 07:12 09/15/22 07:12 Labs: Abnormal Lab Results - Last 24 Hours (Table) 09/15/22 09/15/22 09/16/22 Range/Units 16:54 19:58 06:12 POC Glucose (mg/dL) 121 H 153 H 180 H (70-110) mg/dL 09/16/22 Range/Units 11:37 POC Glucose (mg/dL) 221 H (70-110) mg/dL Assessment and Plan Assessment: Altered mental status with expressive aphasia of unclear etiology. Resolved, no clear-cut etiology. Suspect acute urinary tract infection no report back on the urine culture so far patient is on Rocephin. Transaminitis of unclear etiology, ammonia level within normal limits, improving. Acute hypoxemic respiratory failure, exact etiology is not clear but resolved, could be secondary to COPD. Acute exacerbation of chronic obstructive pulmonary disease, improved. Chronic and ongoing tobacco dependence History of diabetes mellitus History of hyperlipidemia Hypertension Osteoarthritis. History of gout Recommendation: Consider discharge planning if cleared by other consultants/neurology Patient already has home oxygen Continue bronchodilators Continue Keppra Follow-up with me on outpatient basis Time with Patient: Less than 30
--- NOTE | 2022-09-16 13:31 | P.PN ---
Subjective Progress Note Date: 09/16/22 According to nursing staff patient is doing better and seems more awake and responsive. Patient feels she is doing well and feels back to baseline and denies any new neurological deficits. Objective - Vital Signs Vital signs: Vital Signs Temp 97.8 F 09/16/22 09:41 Pulse 95 09/16/22 11:54 Resp 18 09/16/22 09:41 BP 133/64 09/16/22 09:41 Pulse Ox 99 09/16/22 09:41 FiO2 Intake & Output 09/15/22 09/16/22 09/16/22 18:59 06:59 18:59 Intake Total 180 236 Output Total 900 500 Balance -720 -264 Weight 84 kg Intake: Oral 180 236 Output: Urine 900 500 Other: Voiding Method External Catheter External Catheter External Catheter # Voids 2 # Bowel Movements 1 - Exam GENERAL: The patient is lying in bed and is not in acute distress. NEUROLOGICAL: Higher mental function: The patient is awake, alert, oriented to self, place and time. She named objects correctly (pen, watch, phone). No aphasia (better compred to yesterday). No neglect. Cranial nerves: The pupils are round, equal and reactive to light. Visual marquez is hard to assess because of cooepration. EOM is tracking throughout the room and no nystagmus. No facial weakness. No dysarthria. Motor: The strength is hard to assess individual muscles because of cooperation but lifting upper and lower above gravity. Normal tone and bulk. Cerebellum: Normal finger to nose hbilaterally. Sensation: Sensation is normal to touch throughout. Reflexes (right/left): 1+ throughout. Plantars are mute bilaterally. SOME OF THE WORK-UP DURING THIS HOSPITAL VISIT CONSISTED OF: CT angiography of the head and neck is reported as exam somewhat limited by motion. No significant drop abnormality. There is some others carotid plaque at the carotid bifurcation and estimated stenosis less than 20%. I personally could not review the CT images because she with the system. EKG is reported as sinus rhythm with occasional ventricular premature complexes. Nonspecific ST and T-wave abnormality. Borderline the EKG. As a result the patient was not given IV TPA because her symptoms was improved with nonrebreather and it was felt that her symptoms were due to hypoxia. IV TPA because the risk outweighed the benefit. Initial POC glucose is 114, AST of 850 3Y ALT of 210 ammonia level is 15. Urine analysis seems possible suggestive of 5 ureter tract infection Urine drug screen is not detected. MRI Brain w and w/o: Suboptimal with motion artifact egradation. No MRI evidence for a recent infarct. No abnormality enhancement seen. Routine EEG on 09/14/2022 is abnormal. The back of slowing is suggestive of moderate to severe encephalopathy predominantly in the first half of the study but improves to moderate during the second half of the study. There is rare epileptiform discharges that appears predominantly left frontal which creases risk for seizures and status. No seizures seen. The triphasic morphology is likely is a result of toxic metabolic abnormality. Recommend repeating EEG. Repeat Routine EEG on 09/15/2022: Is abnormal. The rhythmicity during the last half of the study that was waxing and waning is concerning for seizure. Prior to the end of the study, the rhythmicity has resolved. The background slowing during the has of study is moderate while last half is moderate to severely. The last half of the study compared to day prior is worse. - Labs CBC & Chem 7: 09/15/22 07:12 09/15/22 07:12 Labs: Abnormal Lab Results - Last 24 Hours (Table) 09/15/22 09/15/22 09/16/22 Range/Units 16:54 19:58 06:12 POC Glucose (mg/dL) 121 H 153 H 180 H (70-110) mg/dL 09/16/22 Range/Units 11:37 POC Glucose (mg/dL) 221 H (70-110) mg/dL Assessment and Plan Assessment: Possible concern for speech difficulty with preservation of words appears expressive aphasia is concerning for seizure (has discharges on left frontal on initial and on repeat there is rhythmicity that was concerning for seizure)---currently back to baseline. Confusion due to hypoxic encephalopathy (had pulse oxygen as low as 40% on presentation) Acute COPD exacerbation Elevated liver function tests with AST more than ALT but denies any alcohol use Possible underlying urinary tract infection Diabetes mellitus Plan: Continue Keppra 1500mg every 12 hours. Ordered repeat 2.5hour for today (but for today there is entry tech shortage so unsure if will be performed). Patient and her has refused transfer to another facility for longer EEG. Continue every 4 hours neuro checks On cardiac monitoring Speech therapy is consulted. Pulmonary team is on board We'll defer the rest of the medical management to the primary team Upon discharge, the patient needs to follow-up with neurologist as outpatient within 1-2 weeks. The plan is discussed with the patient's nurse and primary team N.P. Time with Patient: Less than 30
[2022-09-16 16:18] LABS: Glucose,Whole Blood 245 mg/dL (70-110)
[2022-09-16] MEDS: SODIUM CHLORIDE 0.9% 1,000 ML IV SCH ×2 (18:08→20:41)
[2022-09-16 19:49] LABS: Glucose,Whole Blood 364 mg/dL (70-110)
[2022-09-16] MEDS: HYDROcodone/APAP 5-325MG 1 EACH TAB PO PRN (20:59)
[2022-09-16 21:28] VITALS: RESP 18
--- NOTE | 2022-09-16 23:14 | PN ---
PROGRESS NOTE DATE OF SERVICE: 09/16/2022 SUBJECTIVE: This is a 62-year-old woman who was admitted with change in mental status and possible seizure disorder, who is being closely monitored. Neurology is following the patient closely with EEG. The patient and the family refused any possible transfer. The patient is much more alert today. OBJECTIVE: VITAL SIGNS: Pulse is 97, blood pressure 133/64, respirations 18. CHEST: Clear to auscultation. CARDIOVASCULAR: S1, S2. ABDOMEN: Soft. NERVOUS SYSTEM: No focal deficits. LABS: Reviewed. ASSESSMENT: 1. Change in mental status, possible seizure disorder. 2. Abnormal EEG. 3. Chronic obstructive pulmonary disease acute exacerbation with acute purulent tracheobronchitis. 4. Acute urinary tract infection, present on admission. 5. Diabetes mellitus, type 2. 6. Multiple medical issues. RECOMMENDATIONS: Recommend to continue current management and symptomatic treatment. Continue with bronchodilators. Continue with antiseizure medications. Closely follow with Neurology. Guarded prognosis. Further recommendations to follow. MMODL / IJN: [id number] /
[2022-09-17] MEDS: HYDROcodone/APAP 5-325MG 1 EACH TAB PO PRN ×3 (03:37→16:35)
[2022-09-17 06:08] LABS: Glucose,Whole Blood 348 mg/dL (70-110)
[2022-09-17] MEDS: INSULIN ASPART (NovoLOG) 100 UNIT/ML VIAL SQ SCH ×3 (06:16→18:42)
[2022-09-17] MEDS: PANTOPRAZOLE 40 MG TABLET PO SCH (06:16)
[2022-09-17] MEDS: methylPREDNISolone SOD SUCCI 125 MG/2 ML VIAL IV SCH (06:16)
[2022-09-17] MEDS: IPRATROPIUM-ALBUTEROL 3 ML NEB INHALATION SCH ×3 (08:27→16:07)
[2022-09-17] MEDS: FORMOTEROL FUMARATE 20 MCG/2 ML NEBU INHALATION SCH (08:27)
[2022-09-17] MEDS: BUDESONIDE 1 MG/2 ML NEBU INHALATION SCH (08:27)
[2022-09-17] MEDS: HEPARIN SODIUM,PORCINE/PF 5,000 UNIT/0.5 ML SYRINGE SQ SCH (09:02)
[2022-09-17] MEDS: levETIRAcetam IV 1,500 MG in SALINE 1 100ML.BAG IVPB SCH (09:02)
[2022-09-17 11:21] VITALS: BP 138/82; TEMP 98.1
--- NOTE | 2022-09-17 11:47 | P.PN ---
Subjective Progress Note Date: 09/17/22 The patient is seen at bedside and continues to be doing well. Is back to her baseline. Per nurse, she is doing well. She did not have prolonged EEG yesterday since no tech to perform it but will have it today. Objective - Vital Signs Vital signs: Vital Signs Temp 98.1 F 09/17/22 08:00 Pulse 80 09/17/22 08:47 Resp 18 09/17/22 08:47 BP 138/82 09/17/22 08:00 Pulse Ox 99 09/17/22 08:27 FiO2 Intake & Output 09/16/22 09/17/22 09/17/22 18:59 06:59 18:59 Intake Total 354 342 Output Total 500 Balance -146 342 Intake: Oral 354 342 Output: Urine 500 Other: Voiding Method External Catheter Toilet Toilet # Voids 1 4 # Bowel Movements 1 - Exam GENERAL: The patient is lying in bed and is not in acute distress. NEUROLOGICAL: Higher mental function: The patient is awake, alert, oriented to self, place and time. She named objects correctly (pen, watch, phone). No aphasia and no neglect. Cranial nerves: The pupils are round, equal and reactive to light. Visual marquez is hard to assess because of cooepration. EOM is tracking throughout the room and no nystagmus. No facial weakness. No dysarthria. Motor: The strength is hard to assess individual muscles because of cooperation but lifting upper and lower above gravity. Normal tone and bulk. Cerebellum: Normal finger to nose hbilaterally. Sensation: Sensation is normal to touch throughout. Reflexes (right/left): 1+ throughout. Plantars are mute bilaterally. SOME OF THE WORK-UP DURING THIS HOSPITAL VISIT CONSISTED OF: CT angiography of the head and neck is reported as exam somewhat limited by motion. No significant drop abnormality. There is some others carotid plaque at the carotid bifurcation and estimated stenosis less than 20%. I personally could not review the CT images because she with the system. EKG is reported as sinus rhythm with occasional ventricular premature complexes. Nonspecific ST and T-wave abnormality. Borderline the EKG. As a result the patient was not given IV TPA because her symptoms was improved with nonrebreather and it was felt that her symptoms were due to hypoxia. IV TP A because the risk outweighed the benefit. Initial POC glucose is 114, AST of 850 3Y ALT of 210 ammonia level is 15. Urine analysis seems possible suggestive of 5 ureter tract infection Urine drug screen is not detected. MRI Brain w and w/o: Suboptimal with motion artifact egradation. No MRI eviden ce for a recent infarct. No abnormality enhancement seen. Routine EEG on 09/14/2022 is abnormal. The back of slowing is suggestive of moderate to severe encephalopathy predominantly in the first half of the study but improves to moderate during the second half of the study. There is rare epileptiform discharges that appears predominantly left frontal which creases risk for seizures and status. No seizures seen. The triphasic morphology is likely is a result of toxic metabolic abnormality. Recommend repeating EEG. Repeat Routine EEG on 09/15/2022: Is abnormal. The rhythmicity during the last half of the study that was waxing and waning is concerning for seizure. Prior to the end of the study, the rhythmicity has resolved. The background slowing during the has of study is moderate while last half is moderate to severely. The last half of the study compared to day prior is worse. - Labs CBC & Chem 7: 09/15/22 07:12 09/15/22 07:12 Labs: Abnormal Lab Results - Last 24 Hours (Table) 09/16/22 09/16/22 09/17/22 Range/Units 16:17 19:48 06:06 POC Glucose (mg/dL) 245 H 364 H 348 H (70-110) mg/dL Assessment and Plan Assessment: Expressive aphasia is concerning for seizure (has discharges on left frontal on initial and on repeat there is rhythmicity that was concerning for seizure)---currently back to baseline. Confusion due to hypoxic encephalopathy (had pulse oxygen as low as 40% on presentation) Acute COPD exacerbation Elevated liver function tests with AST more than ALT but denies any alcohol use Possible underlying urinary tract infection Diabetes mellitus Plan: Continue Keppra 1500mg every 12 hours. Pending 2.5hour EEG to performed today. Continue every 4 hours neuro checks On cardiac monitoring Speech therapy is consulted. Pulmonary team is on board We'll defer the rest of the medical management to the primary team Upon discharge, the patient needs to follow-up with neurologist as outpatient within 1-2 weeks (she follows-up with Dr. Elizabeth). The plan is discussed with the patient and and primary team N.P. After EEG, patient is clear for discharge is no further seizures on EEG. Time with Patient: Less than 30
--- NOTE | 2022-09-17 14:11 | P.PN ---
Subjective Progress Note Date: 09/17/22 Principal diagnosis: Acute metabolic encephalopathy This is a very pleasant 62-year-old female patient with a known history of chronic obstructive pulmonary disease, diabetes mellitus, gastroesophageal reflux disease, hyperlipidemia, hypertension, gout and chronic and ongoing to bacco dependence. She was last seen in our office in April 2020. She presented to the emergency room early this morning approximately 2 AM with altered mental status, slurred speech, confusion. Computed tomography scan of the brain revealed no acute abnormalities. CT angiography of the head and neck revealed no significant abnormalities. Some sclerotic plaque at the carotid bifurcations with estimated stenosis less than 20%. White count 13.3. Hemoglobin 11.2. Sodium 139. Potassium 3.2. Chloride 93. Bicarb 40. BUN 24. Creatinine 0.83. Glucose 114. AST 1 853. ALT 210. Ammonia level 15. Urine drug screen negative. Urinalysis cloudy with large leukocyte esterase and greater than 182 WBCs. Rare bacteria. She did have significant hypoxemia in the 40s on room air initially. Currently 94% on 4 L nasal cannula. His x-ray revealed no acute pulmonary process. She is seen today in consultation in the emergency department. She is currently sitting up in a stretcher. Awake and alert. She does have significant expressive aphasia. Not answering questions appropriately. When asked what year this is she responds 7000. When asked to her medical doctor she states medical. She does state that she is at the hospital. She has received 1 L of fluid resuscitation. Currently on normal saline at 130 ML's per hour. Reevaluated today on 09/15/22, patient is doing much better today, she is awake, alert, oriented 3, patient presented initially with expressive aphasia, but thi s seems to have resolved today completely. She was significantly confused yesterday on her initial presentation, today the patient is basically back to normal. She is alert and oriented 3, she does not seem to be in any distress, remains on oxygen at 4 L but her O2 saturations 98%. On physical examination she had clear breath sounds bilaterally. And again her mental status has improved significantly today CBC is normal left breast are normal renal profile is normal, liver enzymes are improving AST is down to 302 today from 853 yesterday. Neurology on the case is recommending MRI of the brain, and The patient on Keppra 750 twice a day. EEG was mostly consistent with encephalopathy, and they're epileptiform discharges noted. Neurology is recommending repeat EEG Reevaluated today on 09/16/22, patient continues to do well, steadily improving, her mental status is basically back to baseline. Pulmonary-gaitan the patient is doing also well. No cough no wheezing no shortness of breath, patient does have home oxygen for her underlying COPD, and she was supposed to come and see me for follow-up on her COPD . However this never happened. At any rate the patient is doing well, and I will clear the patient for possible discharge planning if cleared by other consultants/neurology. Reevaluated today on 09/17/22, patient is doing great, and I'm cleared the patient to be discharged home today. No cough no wheezing no shortness of breath, patient does have grown oxygen, and if the patient is cleared by neurology I have no problem discharging the patient home today, supposedly she is having repeat EEG today Objective - Vital Signs Vital signs: Vital Signs Temp 98.1 F 09/17/22 08:00 Pulse 80 09/17/22 08:47 Resp 18 09/17/22 08:47 BP 138/82 09/17/22 08:00 Pulse Ox 99 09/17/22 08:27 FiO2 Intake & Output 09/16/22 09/17/22 09/17/22 18:59 06:59 18:59 Intake Total 354 342 Output Total 500 Balance -146 342 Intake: Oral 354 342 Output: Urine 500 Other: Voiding Method External Catheter Toilet Toilet # Voids 1 4 # Bowel Movements 1 - Exam Physical Exam: Revealed a 62-year-old female in no distress, on 2 L nasal cannula Head: Atraumatic normocephalic. HEENT:[Neck is supple.] [No neck masses.] [No thyromegaly.] [No JVD.] Chest: [Clear throughout, no crackles, no rhonchi, no wheezes.] Cardiac Exam: [Normal S1 and S2, no S3 gallop, no murmur.] Abdomen: [Soft, nontender, no megaly, no rebound, no guarding, normal bowel sounds.] Extremities: [No clubbing, no edema, no cyanosis.] Neurological Exam: [No focal neurologic deficit.] Psychiatric: Normal mood affect and normal mental status examination. Skin: No rashes - Labs CBC & Chem 7: 09/15/22 07:12 09/15/22 07:12 Labs: Abnormal Lab Results - Last 24 Hours (Table) 09/16/22 09/16/22 09/17/22 Range/Units 16:17 19:48 06:06 POC Glucose (mg/dL) 245 H 364 H 348 H (70-110) mg/dL Assessment and Plan Assessment: Altered mental status with expressive aphasia of unclear etiology. Resolved, no clear-cut etiology. Suspect acute urinary tract infection no report back on the urine culture so far patient is on Rocephin. Transaminitis of unclear etiology, ammonia level within normal limits, improving. Acute hypoxemic respiratory failure, exact etiology is not clear but resolved, could be secondary to COPD. Acute exacerbation of chronic obstructive pulmonary disease, improved. Chronic and ongoing tobacco dependence History of diabetes mellitus History of hyperlipidemia Hypertension Osteoarthritis. History of gout Recommendation: Cleared for discharge planning from our perspective Follow-up with me on outpatient basis in 1-2 weeks. Patient already has home oxygen Continue bronchodilators Continue Keppra, if recommended by neurology to continue Time with Patient: Less than 30
[2022-09-17 14:56] LABS: Glucose,Whole Blood 251 mg/dL (70-110)
[2022-09-17 16:18] VITALS: PULSE 80
[2022-09-17 16:34] LABS: Glucose,Whole Blood 288 mg/dL (70-110)
--- NOTE | 2022-09-17 22:18 | EEG ---
ELECTROENCEPHALOGRAM REPORT ELECTROENCEPHALOGRAM (EEG) REPORT: TECHNIQUE: This is a report from a prolonged 2.5 hour 18-channel digital video EEG performed using the 10/20 international placement system. HISTORY: Unknown. CURRENT MEDICATIONS: Tylenol, Pulmicort, heparin, NovoLog, Solu-Medrol, Protonix. FINDINGS: Recording start time: 09/17/2022 at 11:53 a.m. Recording end time: 09/17/2022 at 02:24 p.m. EVENTS: During this 2.5 hour video EEG, no clinical or electrographic seizures were recorded. BACKGROUND: The background activity consisted of unsustained 8-9 hertz rhythmic waveforms symmetrically seen through both posterior quadrants. ACTIVATION: Hyperventilation: Not performed. Photic stimulation: Mild symmetric driving seen. Sleep: Drowsy. ABNORMALITIES: 1. Mlth-[id number]-ulrnijkapg frontally predominant delta range slowing was seen. 2. Rare frontally predominant triphasic waves were seen. IMPRESSION: Abnormal 2.5 hour video EEG. No clinical or electrographic seizures were recorded. No epileptiform activity was present. Rare triphasic waves were seen as mentioned above that are not epileptiform in nature. Triphasic waves can be seen in the setting of a metabolic encephalopathy. The frontally predominant delta range slowing mentioned above is not epileptiform in nature. In combination, these findings indicate mild diffuse cerebral dysfunction. These findings were called to the Neurologist taking care of the patient at 3:11 p.m. on 09/17/2022. CHIDI / VICENTE: [id number] /
[2022-09-18] MEDS ORDERED: predniSONE 20 MG TAB PO SCH (09:00)
--- NOTE | 2022-09-18 09:16 | P.DS ---
Providers Date of admission: 09/14/22 03:41 Expected date of discharge: 09/17/22 Attending physician: Lauren Rios Consults: 09/14/22 03:41 Consult Physician Routine Consulting Provider: Subha Esquivel Consult Reason/Comments: hypoxia Do you want consulting provider notified?: Yes Consult Physician Routine Consulting Provider: Raúl Patel Consult Reason/Comments: ams Do you want consulting provider notified?: Yes Primary care physician: Shun Simmons Hospital Course: Final diagnosis change in mental status likely due to acute on chronic hypoxic respiratory failure with pulse ox in the 40's initially abnormal EEG suggestion of seizure, new onset COPD acute exacerbation with acute tracheobronchitis Acute urinary tract infection, present on admission Diabetes mellitus, type 2 uncontrolled with hyperglycemia GI and dvt prophylaxis Full code Discharge disposition Patient is being discharged in a stable condition with guarded prognosis to home. Patient will follow-up with Dr. Simmons in the outpatient setting upon discharge. Patient is to follow up with pulmonary and neurology as scheduled. Patient will continue on keppra 1500mg bid on discharge. Total time taken is greater than 35 minutes. Hospital course This is a 62-year-old female who was recently admitted with confusion and seizure and being closely monitored. Acute COPD exacerbation as well. Patient was seen and evaluated by pulmonary and recommending outpatient follow up as scheduled as she did not from previous admission. continue with prednisone taper and duoneb treatments along with 02 that she chronically wears. Encouraged complete tobacco cessation. Patient underwent neurological work up including abnormal eegs with some discharges noted suggesting of seizures and started on 1500mg bid per neuro. Patient to follow up with Dr. Elizabeth which she follows with for pain. Patient is extremely anxious to go home. Currently no reports of chest pain, shortness of breath, or palpitations. Patient is afebrile. No reports of nausea or vomiting and patient is tolerating diet. Patient will be discharged home today. Guarded prognosis due to non-compliance. Physical exam: Gen: This is a 62 year old female who is awake, alert and oriented x3. Well developed, well nourished HEENT: Head is atraumatic, normocephalic. Pupils equal, round. Sclerae is anicteric. NECK: Supple. No JVD. No lymphadenopathy. No thyromegaly. LUNGS: diminished breath sounds bilaterally with some expiratory wheezes and scattered rhonchi. No intercostal retractions. HEART: Regular rate and rhythm. No murmur. ABDOMEN: Soft. Bowel sounds are present. No masses. No tenderness. EXTREMITIES: No pedal edema. No calf tenderness. NEUROLOGICAL: Patient is awake, alert and oriented x3. Cranial nerves 2 through 12 are grossly intact. Please refer to medication reconciliation sheet for a list of medications. The impression and plan of care has been dictated by Roseanna Austin, Nurse Practitioner as directed. Dr. Mitchell MD I have performed a history and examination and MDM of this patient, discussed the same with the dictator, and agree with the dictator's assessment and plan as written ,documented as a scribe. Based on total visit time, I have performed more than 50% of the visit. Patient Condition at Discharge: Fair Plan - Discharge Summary Discharge Rx Participant: No New Discharge Prescriptions: New levETIRAcetam 1,500 mg PO Q12HR 30 Days #90 tab Acetaminophen Tab [Tylenol] 650 mg PO Q4HR PRN tab PRN Reason: Fever and/ or Mild Pain Ipratropium-Albuterol Nebulize [Duoneb 0.5 mg-3 mg/3 ml Soln] 3 ml INHALATION RT-QID #100 each predniSONE 10 mg PO DIRECTED #30 tab Continue Cyclobenzaprine [Flexeril] 10 mg PO HS Omeprazole [PriLOSEC] 20 mg PO DAILY Fenofibrate 160 mg PO DAILY allopurinoL [Allopurinol] 100 mg PO DAILY Glimepiride [Amaryl] 8 mg PO DAILY rOPINIRole HCL [Requip] 0.25 mg PO HS Atorvastatin [Lipitor] 80 mg PO HS Ergocalciferol (Vitamin D2) [Drisdol (50,000 Iu)] 1,250 mcg PO MO Albuterol Sulfate [Proair Hfa] 2 puff INHALATION RT-Q6H PRN PRN Reason: Shortness Of Breath Ipratropium-Albuterol Nebulize [Duoneb 0.5 mg-3 mg/3 ml Soln] 3 ml INHALATION RT-Q4H PRN #120 each PRN Reason: Shortness Of Breath Or Wheezing Furosemide [Lasix] 40 mg PO DAILY Pregabalin [Lyrica] 150 mg PO BID Magnesium Oxide [Magox 400] 400 mg PO DAILY metFORMIN HCL [Glucophage] 1,000 mg PO BID Empagliflozin [Jardiance] 25 mg PO DAILY Dulaglutide [Trulicity] 0.75 mg SQ TH traMADol HCL 50 mg PO QID PRN PRN Reason: Pain Nicotine 14Mg/24Hr Patch [Habitrol] 1 patch TRANSDERM DAILY PRN PRN Reason: Nicotine Cravings Discharge Medication List Cyclobenzaprine [Flexeril] 10 mg PO HS 07/11/14 [History] Omeprazole [PriLOSEC] 20 mg PO DAILY 08/05/14 [History] Fenofibrate 160 mg PO DAILY 05/27/16 [History] allopurinoL [Allopurinol] 100 mg PO DAILY 05/27/16 [History] Glimepiride [Amaryl] 8 mg PO DAILY 06/28/17 [History] rOPINIRole HCL [Requip] 0.25 mg PO HS 06/02/18 [History] Atorvastatin [Lipitor] 80 mg PO HS 01/21/22 [History] Empagliflozin [Jardiance] 25 mg PO DAILY 01/21/22 [History] Ergocalciferol (Vitamin D2) [Drisdol (50,000 Iu)] 1,250 mcg PO MO 01/21/22 [History] Magnesium Oxide [Magox 400] 400 mg PO DAILY 01/21/22 [History] Pregabalin [Lyrica] 150 mg PO BID 01/21/22 [History] metFORMIN HCL [Glucophage] 1,000 mg PO BID 01/21/22 [History] Albuterol Sulfate [Proair Hfa] 2 puff INHALATION RT-Q6H PRN 03/20/22 [History] Dulaglutide [Trulicity] 0.75 mg SQ TH 03/20/22 [History] Ipratropium-Albuterol Nebulize [Duoneb 0.5 mg-3 mg/3 ml Soln] 3 ml INHALATION RT-Q4H PRN #120 each 07/14/22 [Rx] Furosemide [Lasix] 40 mg PO DAILY 09/14/22 [History] Nicotine 14Mg/24Hr Patch [Habitrol] 1 patch TRANSDERM DAILY PRN 09/14/22 [History] traMADol HCL 50 mg PO QID PRN 09/14/22 [History] Acetaminophen Tab [Tylenol] 650 mg PO Q4HR PRN tab 09/17/22 [Rx] Ipratropium-Albuterol Nebulize [Duoneb 0.5 mg-3 mg/3 ml Soln] 3 ml INHALATION RT-QID #100 each 09/17/22 [Rx] levETIRAcetam 1,500 mg PO Q12HR 30 Days #90 tab 09/17/22 [Rx] predniSONE 10 mg PO DIRECTED #30 tab 09/17/22 [Rx] Follow up Appointment(s)/Referral(s): Ebonie Elizondo MD [STAFF PHYSICIAN] - 10/07/22 1:45 pm Shun Simmons DO [Primary Care Provider] - 09/23/22 3:00 pm (Appointment with Ofelia ANN) Cindy Elizabeth MD [Medical Doctor] - 1 Week (Please call to set up appointment) Patient Instructions/Handouts: Seizure/Epilepsy Discharge Instructions & Follow-Up Activity/Diet/Wound Care/Special Instructions: Activity Limited until follow-up Follow-up with neurologist in the next 1-2 weeks Continue taking medications as prescribed Follow-up with pulmonary outpatient Continue prednisone taper until finished Discharge Disposition: HOME SELF-CARE
== END 2022-09-17 19:30 | disposition home or self-care (01) | DRG 190 ==
LOC: EC 01:49 → 4SSUR 03:41 → 3SCARD 13:58
PROVIDERS: ADMIT Hospitalist; ATTEND Hospitalist
DX: J43.9 Emphysema, unspecified (principal); J96.21 Acute and chronic respiratory failure with hypoxia; G93.1 Anoxic brain damage, not elsewhere classified; R47.01 Aphasia; N39.0 Urinary tract infection, site not specified; E11.9 Type 2 diabetes mellitus without complications; K21.9 Gastro-esophageal reflux disease without esophagitis; E78.5 Hyperlipidemia, unspecified; I10 Essential (primary) hypertension; M10.9 Gout, unspecified; J20.9 Acute bronchitis, unspecified; M19.90 Unspecified osteoarthritis, unspecified site; F17.200 Nicotine dependence, unspecified, uncomplicated; Z79.84 Long term (current) use of oral hypoglycemic drugs; Z79.899 Other long term (current) drug therapy; Z91.199 Patient's noncompliance with other medical treatment and regimen due to unspecified reason; Z88.5 Allergy status to narcotic agent
CPT/HCPCS: 36415; 70450; 70496; 70498; 70553; 71045; 80053; 80306; 81001; 82140; 83036; 83735; 84100; 84145; 84484; 85025; 85610; 85730; 93005; 94640; 94760; 95816; 96361; 96374; 96375; 99285

== ENCOUNTER 2023-04-08 18:17 | Inpatient (IN) | payer OTHER ==
[2023-04-08] MEDS ORDERED: IPRATROPIUM-ALBUTEROL 3 ML NEB INHALATION STA ×2 (18:22→18:23)
[2023-04-08 18:28] LABS: Glucose,Whole Blood 69 mg/dL (70-110)
[2023-04-08] MEDS ORDERED: methylPREDNISolone SOD SUCCI 125 MG/2 ML VIAL IV STA (18:43)
--- NOTE | 2023-04-08 18:43 | ED ---
SOB HPI - General Chief Complaint: Shortness of Breath Stated Complaint: GALILEA Time Seen by Provider: 04/08/23 18:21 Source: patient, EMS, RN notes reviewed, old records reviewed Mode of arrival: EMS Limitations: no limitations - History of Present Illness Initial Comments: 62-year-old female with a history of COPD who still smokes who apparently started developing shortness of breath about an hour before EMS was called. She was found have a pulse ox of 38% on room air she was very lethargic and obtunded initially no reports of any trauma no reports of any fevers chills nausea vomiting sweats. Her pulse ox and mentation did improve after oxygen was applied. She was not given a DuoNeb during transport. No other current complaints modifying factors MD Complaint: shortness of breath - Related Data Home Medications Medication Instructions Recorded Confirmed Cyclobenzaprine [Flexeril] 10 mg PO HS 07/11/14 04/08/23 Omeprazole [PriLOSEC] 20 mg PO DAILY 08/05/14 04/08/23 Fenofibrate 160 mg PO DAILY 05/27/16 04/08/23 allopurinoL [Allopurinol] 100 mg PO DAILY 05/27/16 04/08/23 Glimepiride [Amaryl] 8 mg PO DAILY 06/28/17 04/08/23 rOPINIRole HCL [Requip] 0.25 mg PO HS 06/02/18 04/08/23 Atorvastatin [Lipitor] 80 mg PO HS 01/21/22 04/08/23 Empagliflozin [Jardiance] 25 mg PO DAILY 01/21/22 04/08/23 Ergocalciferol (Vitamin D2) 1,250 mcg PO MO 01/21/22 04/08/23 [Drisdol (50,000 Iu)] Magnesium Oxide [Magox 400] 400 mg PO BID 01/21/22 04/08/23 Pregabalin [Lyrica] 150 mg PO BID 01/21/22 04/08/23 metFORMIN HCL [Glucophage] 1,000 mg PO BID 01/21/22 04/08/23 Furosemide [Lasix] 40 mg PO DAILY 09/14/22 04/08/23 HYDROcodone/APAP 5-325MG [[place] 1 tab PO Q6HR PRN 04/08/23 04/08/23 5-325] Potassium Chloride 10 meq PO DAILY 04/08/23 04/08/23 Triamcinolone 0.1% Cream [Kenalog 1 applicatio TOPICAL BID 04/08/23 04/08/23 0.1% Cream] levETIRAcetam [Keppra] 1,500 mg PO BID 04/08/23 04/08/23 Allergies Allergy/AdvReac Type Severity Reaction Status Date / Time codeine AdvReac Severe Abdominal Verified 09/14/22 15:39 Pain Review of Systems ROS Statement: Those systems with pertinent positive or pertinent negative responses have been documented in the HPI. ROS Other: All systems not noted in ROS Statement are negative. Past Medical History Past Medical History: COPD, Diabetes Mellitus, Eye Disorder, GERD/Reflux, Hyperlipidemia, Hypertension, Osteoarthritis (OA) Additional Past Medical History / Comment(s): Start of glaucoma. "Knees have been giving out." DDD. Stage 1 Emphysema, gout, lower back and left hip pain, History of Any Multi-Drug Resistant Organisms: None Reported Past Surgical History: Back Surgery, Section, Cholecystectomy, Tubal Ligation Additional Past Surgical History / Comment(s): MARBIN PLACED FOR SCOLIOSIS as child. mult left breast biopsy, Past Anesthesia/Blood Transfusion Reactions: No Reported Reaction Past Psychological History: No Psychological Hx Reported Smoking Status: Current every day smoker Past Alcohol Use History: None Reported Past Drug Use History: None Reported - Past Family History Brother(s) Family Medical History: Diabetes Mellitus Mother Family Medical History: Cancer Father Family Medical History: Cancer General Exam - General Exam Comments Initial Comments: This a well-developed obese female who is awake alert somewhat lethargic Limitations: no limitations General appearance: alert, lethargic Head exam: Present: atraumatic, normocephalic, normal inspection Eye exam: Present: normal appearance, PERRL, EOMI. Absent: scleral icterus, conjunctival injection, periorbital swelling ENT exam: Present: mucous membranes dry Neck exam: Present: normal inspection, full ROM, other. Absent: tenderness, meningismus, lymphadenopathy Respiratory exam: Present: rhonchi (Bibasilar rhonchi), decreased breath sounds (No stridor JVD or bruits). Absent: respiratory distress, wheezes, rales, stridor Cardiovascular Exam: Present: regular rate, normal rhythm, normal heart sounds. Absent: systolic murmur, diastolic murmur, rubs, gallop, clicks GI/Abdominal exam: Present: soft, normal bowel sounds. Absent: distended, tenderness, guarding, rebound, rigid, bruit, pulsatile mass (Obese abdomen) Extremities exam: Present: normal inspection, full ROM, normal capillary refill. Absent: tenderness, pedal edema, joint swelling, calf tenderness Back exam: Present: normal inspection Neurological exam: Present: alert, oriented X3, CN II-XII intact Psychiatric exam: Present: normal affect, normal mood Skin exam: Present: warm, dry, intact, normal color. Absent: rash Course Vital Signs 04/08/23 04/08/23 04/08/23 18:20 18:28 18:34 Temperature 98.0 F Pulse Rate 85 79 86 Respiratory 20 13 Rate Blood Pressure O2 Sat by Pulse 98 100 Oximetry 04/08/23 04/08/23 04/08/23 18:37 19:38 21:51 Temperature Pulse Rate 84 86 94 Respiratory 13 29 H Rate Blood Pressure 139/79 130/95 O2 Sat by Pulse 99 94 L Oximetry - Reevaluation(s) Reevaluation #1: 04/08/23 22:51 CT chest pending Procedures - Smoking Cessation Time Spent Discussing Smoking Cessation w/Patient (Minutes): 3 Patient Acknowledges Need for Cessation: Yes Medical Decision Making - Medical Decision Making I did reevaluate patient on multiple occasions she is improved after oxygen she was given IV Lasix as well as a DuoNeb. Patient will be admitted evidence of CHF with hypoxemia. She was also noted be hypoglycemic. Also hypokalemic. Was pt. sent in by a medical professional or institution (, PA, [employer] HOME TEACHER, urgent care, hospital, or senior care...) When possible be specific @ -No Did you speak to anyone other than the patient for history (EMS, parent, family, police, friend...)? What history was obtained from this source @ -Paramedics upon arrival Did you review nursing and triage notes (agree or disagree)? Why? @ -I reviewed and agree with nursing and triage notes Were old charts reviewed (outside hosp., previous admission, EMS record, old EKG, old radiological studies, urgent care reports/EKG's, senior care records)? Report findings @ -No old charts were reviewed Differential Diagnosis (chest pain, altered mental status, abdominal pain women, abdominal pain men, vaginal bleeding, weakness, fever, dyspnea, syncope, headache, dizziness, GI bleed, back pain, seizure, CVA, palpatations, mental health, musculoskeletal)? @ -Dyspnea, hypoxemia] EKG interpreted by me (3pts min.). @ -As above X-rays interpreted by me (1pt min.). @ -As above evidence of congestive failure CT interpreted by me (1pt min.). @ -None done U/S interpreted by me (1pt. min.). @ -None done What testing was considered but not performed or refused? (CT, X-rays, U/S, labs)? Why? @ -None What meds were considered but not given or refused? Why? @ -None Did you discuss the management of the patient with other professionals (professionals i.e. , PA, [employer] HOME TEACHER, lab, RT, psych nurse, director social welfare, sales planner, teacher, administrative services officer, machine adjuster leader case trim)? Give summary @ -Dr. Ponce Was smoking cessation discussed for >3mins.? @ -Yes greater than 3 minutes Was critical care preformed (if so, how long)? @ -40 minutes Were there social determinants of health that impacted care today? How? (Homelessness, low income, unemployed, alcoholism, drug addiction, transportation, low edu. Level, literacy, decrease access to med. care, alf, rehab)? @ -No Was there de-escalation of care discussed even if they declined (Discuss DNR or withdrawal of care, Hospice)? DNR status @ -No What co-morbidities impacted this encounter? (DM, HTN, Smoking, COPD, CAD, Cancer, CVA, ARF, Chemo, Hep., AIDS, mental health diagnosis, sleep apnea, morbid obesity)? @ -Hypertension, diabetes, COPD, smoker Was patient admitted / discharged? Hospital course, mention meds given and route, prescriptions, significant lab abnormalities, going to OR and other pertinent info. @ -Patient was admitted for inpatient evaluation and treatment CHF with COPD exacerbation Undiagnosed new problem with uncertain prognosis? @ -Heart failure Drug Therapy requiring intensive monitoring for toxicity (Heparin, Nitro, Insulin, Cardizem)? @ -No Were any procedures done? @ -No Diagnosis/symptom? @ -CHF, COPD exacerbation, respiratory failure, hypoxemia Acute, or Chronic, or Acute on Chronic? @ -Acute Uncomplicated (without systemic symptoms) or Complicated (systemic symptoms)? @ -Complicated Side effects of treatment? @ -No Exacerbation, Progression, or Severe Exacerbation? @ -Zestril patient Poses a threat to life or bodily function? How? (Chest pain, [place], [place], pneumonia, PE, COPD, DKA, ARF, appy, cholecystitis, CVA, Diverticulitis, Homicidal, Suicidal, threat to staff... and all critical care pts) @ -COPD, CHF - Lab Data Result diagrams: 04/08/23 18:28 04/08/23 18:28 Lab Results 04/08/23 04/08/23 04/08/23 Range/Units 18:26 18:28 18:28 WBC 8.1 (3.8-10.6) k/uL RBC 5.11 (3.80-5.40) m/uL Hgb 11.0 L (11.4-16.0) gm/dL Hct 37.7 (34.0-46.0) % MCV 73.8 L (80.0-100.0) fL MCH 21.5 L (25.0-35.0) pg MCHC 29.1 L (31.0-37.0) g/dL RDW 19.1 H (11.5-15.5) % Plt Count 216 (150-450) k/uL MPV 10.7 Neutrophils % 69 % Lymphocytes % 20 % Monocytes % 6 % Eosinophils % 1 % Basophils % 1 % Neutrophils # 5.6 (1.3-7.7) k/uL Lymphocytes # 1.6 (1.0-4.8) k/uL Monocytes # 0.5 (0-1.0) k/uL Eosinophils # 0.1 (0-0.7) k/uL Basophils # 0.1 (0-0.2) k/uL Hypochromasia Marked Poikilocytosis Moderate Anisocytosis Slight Microcytosis Moderate PT 13.1 H (9.0-12.0) sec INR 1.3 H (<1.2) APTT 19.4 L (22.0-30.0) sec D-Dimer 0.69 H (<0.60) mg/L FEU Sodium (137-145) mmol/L Potassium (3.5-5.1) mmol/L Chloride (98-107) mmol/L Carbon Dioxide (22-30) mmol/L Anion Gap mmol/L BUN (7-17) mg/dL Creatinine (0.52-1.04) mg/dL Est GFR (CKD-EPI)AfAm (>60 ml/min/1.73 sqM) Est GFR (CKD-EPI)NonAf (>60 ml/min/1.73 sqM) Glucose (74-99) mg/dL POC Glucose (mg/dL) 69 L (70-110) mg/dL POC Glu Director Career ID Thang Abernathy Plasma Lactic Acid Jon (0.7-2.0) mmol/L Calcium (8.4-10.2) mg/dL Magnesium (1.6-2.3) mg/dL Total Bilirubin (0.2-1.3) mg/dL AST (14-36) U/L ALT (4-34) U/L Alkaline Phosphatase (38-126) U/L Troponin I (0.000-0.034) ng/mL NT-Pro-B Natriuret Pep pg/mL Total Protein (6.3-8.2) g/dL Albumin (3.5-5.0) g/dL Influenza Type A (PCR) (Not Detectd) Influenza Type B (PCR) (Not Detectd) RSV (PCR) (Not Detectd) SARS-CoV-2 (PCR) (Not Detectd) 04/08/23 04/08/23 04/08/23 Range/Units 18:28 18:28 18:28 WBC (3.8-10.6) k/uL RBC (3.80-5.40) m/uL Hgb (11.4-16.0) gm/dL Hct (34.0-46.0) % MCV (80.0-100.0) fL MCH (25.0-35.0) pg MCHC (31.0-37.0) g/dL RDW (11.5-15.5) % Plt Count (150-450) k/uL MPV Neutrophils % % Lymphocytes % % Monocytes % % Eosinophils % % Basophils % % Neutrophils # (1.3-7.7) k/uL Lymphocytes # (1.0-4.8) k/uL Monocytes # (0-1.0) k/uL Eosinophils # (0-0.7) k/uL Basophils # (0-0.2) k/uL Hypochromasia Poikilocytosis Anisocytosis Microcytosis PT (9.0-12.0) sec INR (<1.2) APTT (22.0-30.0) sec D-Dimer (<0.60) mg/L FEU Sodium 142 (137-145) mmol/L Potassium 3.2 L (3.5-5.1) mmol/L Chloride 95 L (98-107) mmol/L Carbon Dioxide 40 H (22-30) mmol/L Anion Gap 7 mmol/L BUN 36 H (7-17) mg/dL Creatinine 0.71 (0.52-1.04) mg/dL Est GFR (CKD-EPI)AfAm >90 (>60 ml/min/1.73 sqM) Est GFR (CKD-EPI)NonAf >90 (>60 ml/min/1.73 sqM) Glucose 57 L (74-99) mg/dL POC Glucose (mg/dL) (70-110) mg/dL POC Glu Director Career ID Plasma Lactic Acid Jon 1.0 (0.7-2.0) mmol/L Calcium 8.3 L (8.4-10.2) mg/dL Magnesium 2.6 H (1.6-2.3) mg/dL Total Bilirubin 0.7 (0.2-1.3) mg/dL AST 90 H (14-36) U/L ALT 76 H (4-34) U/L Alkaline Phosphatase 70 (38-126) U/L Troponin I <0.012 (0.000-0.034) ng/mL NT-Pro-B Natriuret Pep pg/mL Total Protein 6.1 L (6.3-8.2) g/dL Albumin 3.5 (3.5-5.0) g/dL Influenza Type A (PCR) (Not Detectd) Influenza Type B (PCR) (Not Detectd) RSV (PCR) (Not Detectd) SARS-CoV-2 (PCR) (Not Detectd) 04/08/23 04/08/23 04/08/23 Range/Units 18:28 18:28 20:01 WBC (3.8-10.6) k/uL RBC (3.80-5.40) m/uL Hgb (11.4-16.0) gm/dL Hct (34.0-46.0) % MCV (80.0-100.0) fL MCH (25.0-35.0) pg MCHC (31.0-37.0) g/dL RDW (11.5-15.5) % Plt Count (150-450) k/uL MPV Neutrophils % % Lymphocytes % % Monocytes % % Eosinophils % % Basophils % % Neutrophils # (1.3-7.7) k/uL Lymphocytes # (1.0-4.8) k/uL Monocytes # (0-1.0) k/uL Eosinophils # (0-0.7) k/uL Basophils # (0-0.2) k/uL Hypochromasia Poikilocytosis Anisocytosis Microcytosis PT (9.0-12.0) sec INR (<1.2) APTT (22.0-30.0) sec D-Dimer (<0.60) mg/L FEU Sodium (137-145) mmol/L Potassium (3.5-5.1) mmol/L Chloride (98-107) mmol/L Carbon Dioxide (22-30) mmol/L Anion Gap mmol/L BUN (7-17) mg/dL Creatinine (0.52-1.04) mg/dL Est GFR (CKD-EPI)AfAm (>60 ml/min/1.73 sqM) Est GFR (CKD-EPI)NonAf (>60 ml/min/1.73 sqM) Glucose (74-99) mg/dL POC Glucose (mg/dL) 108 (70-110) mg/dL POC Glu Director Career ID Roseanna Alexander Plasma Lactic Acid Jon (0.7-2.0) mmol/L Calcium (8.4-10.2) mg/dL Magnesium (1.6-2.3) mg/dL Total Bilirubin (0.2-1.3) mg/dL AST (14-36) U/L ALT (4-34) U/L Alkaline Phosphatase (38-126) U/L Troponin I (0.000-0.034) ng/mL NT-Pro-B Natriuret Pep 4010 pg/mL Total Protein (6.3-8.2) g/dL Albumin (3.5-5.0) g/dL Influenza Type A (PCR) Not Detected (Not Detectd) Influenza Type B (PCR) Not Detected (Not Detectd) RSV (PCR) Not Detected (Not Detectd) SARS-CoV-2 (PCR) Not Detected (Not Detectd) Critical Care Time Critical Care Time: Yes Total Critical Care Time: 40 Disposition Clinical Impression: CHF (congestive heart failure), Acute exacerbation of chronic obstructive pulmonary disease, Hypokalemia, Hypoxemia, Acute respiratory distress syndrome in adult Disposition: ADMITTED IP TO THIS [facility] Condition: Fair Referrals: Shun Simmons DO [Primary Care Provider] - 1-2 days Decision Date: 04/08/23 Decision Time: 22:00
[2023-04-08] MEDS ORDERED: DEXTROSE 50% SYRINGE 50 ML IVP STA (18:46)
[2023-04-08 18:52] LABS: Anisocytosis Slight; Basophils # (A) 0.1 k/uL (0-0.2); Basophils % (A) 1 %; Eosinophils # (A) 0.1 k/uL (0-0.7); Eosinophils % (A) 1 %; HCT 37.7 % (34.0-46.0); Hypochromasia Marked; Lymphocytes # (A) 1.6 k/uL (1.0-4.8); Lymphocytes % (A) 20 %; MCH 21.5 pg (25.0-35.0); MCHC 29.1 g/dL (31.0-37.0); MCV 73.8 fL (80.0-100.0); Mean Platelet Volume 10.7; Microcytosis Moderate; Monocytes # (A) 0.5 k/uL (0-1.0); Monocytes % (A) 6 %; Neutrophils # (A) 5.6 k/uL (1.3-7.7); Neutrophils % (A) 69 %; Platelet Count 216 k/uL (150-450); Poikilocytosis Moderate; RBC 5.11 m/uL (3.80-5.40); RDW 19.1 % (11.5-15.5); WBC 8.1 k/uL (3.8-10.6)
[2023-04-08 19:00] LABS: ALT 76 U/L (4-34); AST 90 U/L (14-36); African American GFR (CKD) >90 (>60 ml/min/1.73 sqM); Albumin 3.5 g/dL (3.5-5.0); Alkaline Phosphatase 70 U/L (38-126); Anion Gap 7 mmol/L; Blood Urea Nitrogen 36 mg/dL (7-17); Calcium 8.3 mg/dL (8.4-10.2); Chloride 95 mmol/L (98-107); Glucose 57 mg/dL (74-99); Magnesium 2.6 mg/dL (1.6-2.3); Non-African American GFR(CKD) >90 (>60 ml/min/1.73 sqM); Potassium 3.2 mmol/L (3.5-5.1); Sodium 142 mmol/L (137-145); Total Bilirubin 0.7 mg/dL (0.2-1.3); Total Protein 6.1 g/dL (6.3-8.2)
--- NOTE | 2023-04-08 19:02 | XR ---
EXAMINATION TYPE: XR chest 2V DATE OF EXAM: 04/08/2023 6:54 PM COMPARISON: Chest radiographs from 09/14/2022 TECHNIQUE: XR chest 2V Frontal and lateral views of the chest. CLINICAL INDICATION:Female, 62 years old with history of difficulty breathing; FINDINGS: Lungs/Pleura: There is no evidence for consolidation or pneumothorax. Trace bilateral pleural effusio n. Pulmonary vascularity: Pulmonary vascular congestion. Heart/mediastinum: Cardiomediastinal silhouette is enlarged and stable. Musculoskeletal: No acute osseous pathology. Left-sided stabilization spinal levi redemonstrated. IMPRESSION: Cardiomegaly, pulmonary vascular congestion and trace bilateral pleural effusions. Correlate with BNP for congestive heart failure.
[2023-04-08 19:06] LABS: Carbon Dioxide 40 mmol/L (22-30)
[2023-04-08 19:09] LABS: INR 1.3 (<1.2); Prothrombin Time 13.1 sec (9.0-12.0)
[2023-04-08 19:13] LABS: Partial Thromboplastin Time 19.4 sec (22.0-30.0)
[2023-04-08 20:03] LABS: Glucose,Whole Blood 108 mg/dL (70-110)
[2023-04-08] MEDS ORDERED: FUROSEMIDE 10 MG/ML 4 ML VIAL IV STA (20:35)
[2023-04-08] MEDS ORDERED: POTASSIUM CHLORIDE 20 MEQ in WATER FOR INJECTION 1 100ML.BAG IVPB STA (22:40)
[2023-04-09] MEDS: HYDROcodone/APAP 5-325MG 1 EACH TAB PO PRN ×2 (00:40→16:14)
[2023-04-09] MEDS: FUROSEMIDE 40 MG TAB PO SCH ×3 (00:41→16:14)
--- NOTE | 2023-04-09 00:41 | CT ---
EXAM: CT Angiography Chest With Intravenous Contrast CLINICAL HISTORY: ITS.REASON CT Reason: PE suspected TECHNIQUE: Axial computed tomographic angiography images of the chest with intravenous contrast. CTDI is 18.7 mGy and DLP is 664.4 mGy-cm. This CT exam was performed using one or more of the following dose reduction techniques: automated exposure control, adjustment of the mA and/or kV according to patient size, and/or use of iterative reconstruction technique. 3D and MIP reconstructed images were created and reviewed. COMPARISON: Chest x-ray 04/08/2023, CT chest 04/24/2019 FINDINGS: Study is limited by patient motion. Pulmonary arteries: No central pulmonary embolism. Subsegmental branches are obscured by motion artifact. Aorta: No thoracic aortic aneurysm or dissection. Atherosclerotic vascular calcifications. Lungs: Mild pulmonary vascular congestion. Bibasilar dependent atelectasis. No definite focal lobar consolidation. Punctate right lower lobe calcification/granuloma. Pleural space: No pleural effusion. No pneumothorax. Heart: Mild cardiomegaly. No pericardial effusion. No evidence of RV dysfunction. Bones/joints: No acute fracture. Postoperative and degenerative changes thoracic spine including posterior middle station hardware spanning the mid to lower thoracic spine with scoliosis. Soft tissues: Unremarkable. Lymph nodes: Unremarkable. No enlarged lymph nodes. IMPRESSION: Examination limited by significant patient motion. No central pulmonary embolism. Cardiomegaly. Mild pulmonary vascular congestion. Bilateral atelectasis. No focal lobar consolidation. Otherwise no change.
[2023-04-09] MEDS: PANTOPRAZOLE 40 MG TABLET PO SCH (06:04)
[2023-04-09 06:22] LABS: Glucose,Whole Blood 306 mg/dL (70-110)
[2023-04-09] MEDS ORDERED: FUROSEMIDE 40 MG TAB PO SCH (09:00)
[2023-04-09] MEDS ORDERED: methylPREDNISolone SOD SUCCI 40 MG/ML 1 ML VIAL IV SCH (09:00)
[2023-04-09] MEDS: DAPAGLIFLOZIN PROPANEDIOL 10 MG TABLET PO SCH (09:32)
[2023-04-09] MEDS: allopurinoL 100 MG TAB PO SCH (09:32)
[2023-04-09] MEDS: FENOFIBRATE 160 MG TAB PO SCH (09:32)
[2023-04-09] MEDS: GLIMEPIRIDE 4 MG TAB PO SCH (09:32)
[2023-04-09] MEDS: PREGABALIN 75 MG CAP PO SCH ×2 (09:32→21:09)
[2023-04-09] MEDS: MAGNESIUM OXIDE 400 MG TAB PO SCH ×2 (09:32→21:09)
[2023-04-09] MEDS: ASPIRIN 325 MG TAB PO SCH (09:32)
[2023-04-09] MEDS: POTASSIUM CHLORIDE ER 10 MEQ TAB.ER.PRT PO SCH (09:32)
[2023-04-09 11:56] LABS: Glucose,Whole Blood 345 mg/dL (70-110)
--- NOTE | 2023-04-09 12:11 | P.CNPUL ---
History of Present Illness Consult date: 04/09/23 Reason for consult: dyspnea History of present illness: 62-year-old female patient, known history of COPD, maintain on home oxygen, comes into the hospital because of some altered mentation and shortness of breath. The patient was apparently hypoxic with a pulse ox of 40% on room air oxygen and his symptoms the patient was quite lethargic and obtunded. Currently she is on 4 L and she is awake and alert and communicating. She has had similar hospital admissions where she presented hospital because of altered mentation. Neuro workup has been done. No evidence of any CVA. She was considered to have seizures although this has not been officially confirmed the patient admitted on [facility]. It is very much likely that her encephalopathy is related to hypoxemic events. during this current admission, the patient was given a CT angiogram that showed no evidence of any pulmonary embolism. No focal consolidation. There is some bibasilar atelectatic change and the rest of the blood work showed a WBC of 8.0 with a hemoglobin of 11. D-dimer is 0.69. Sodium level was at 142, bicarb is at 40, BUN is at 36 with a creatinine of 0.7. Influenza a and B and RSV and Covid 17-year-old negative. Review of Systems Constitutional: Reports fatigue, Reports weight gain Eyes: denies as per HPI, denies blurred vision, denies bulging eye, denies dec reased vision, denies diplopia, denies discharge, denies dry eye, denies irritation, denies itching, denies pain, denies photophobia, denies loss of peripheral vision, denies loss of vision, denies tunnel vision/blind spots Ears: deny: decreased hearing, ear discharge, earache, tinnitus Ears, nose, mouth and throat: Reports as per HPI Breasts: absent: as per HPI, change in shape, gynecomastia, masses, nipple discharge, pain, skin changes, swelling Respiratory: Reports cough, Reports dyspnea Gastrointestinal: Reports as per HPI Genitourinary: Reports as per HPI Menstruation: Reports as per HPI Musculoskeletal: Reports as per HPI Musculoskeletal: bilateral: ankle swelling, absent: ankle pain, ankle stiffness Integumentary: Reports as per HPI Neurological: Reports as per HPI, altered mentation Psychiatric: Reports as per HPI Endocrine: Reports as per HPI Hematologic/Lymphatic: Reports as per HPI Allergic/Immunologic: Reports as per HPI Past Medical History Past Medical History: COPD, Diabetes Mellitus, Eye Disorder, GERD/Reflux, Hyperlipidemia, Hypertension, Osteoarthritis (OA) Additional Past Medical History / Comment(s): glaucoma. "Knees have been giving out." DDD. gout, lower back and left hip pain History of Any Multi-Drug Resistant Organisms: None Reported Past Surgical History: Back Surgery, Section, Cholecystectomy, Tubal Ligation Additional Past Surgical History / Comment(s): MARBIN PLACED FOR SCOLIOSIS as child. mult left breast biopsy, Past Anesthesia/Blood Transfusion Reactions: No Reported Reaction Past Psychological History: No Psychological Hx Reported Additional Psychological History / Comment(s): . Smoking Status: Current every day smoker Past Alcohol Use History: None Reported Additional Past Alcohol Use History / Comment(s): Has been smoking since 14 yrs old, > 1 PPD. Past Drug Use History: None Reported Additional Drug Use History / Comment(s): . - Past Family History Brother(s) Family Medical History: Diabetes Mellitus Mother Family Medical History: Cancer Father Family Medical History: Cancer Medications and Allergies Home Medications Medication Instructions Recorded Confirmed Type Cyclobenzaprine [Flexeril] 10 mg PO HS 07/11/14 04/08/23 History Omeprazole [PriLOSEC] 20 mg PO DAILY 08/05/14 04/08/23 History Fenofibrate 160 mg PO DAILY 05/27/16 04/08/23 History allopurinoL [Allopurinol] 100 mg PO DAILY 05/27/16 04/08/23 History Glimepiride [Amaryl] 8 mg PO DAILY 06/28/17 04/08/23 History rOPINIRole HCL [Requip] 0.25 mg PO HS 06/02/18 04/08/23 History Atorvastatin [Lipitor] 80 mg PO HS 01/21/22 04/08/23 History Empagliflozin [Jardiance] 25 mg PO DAILY 01/21/22 04/08/23 History Ergocalciferol (Vitamin D2) 1,250 mcg PO MO 01/21/22 04/08/23 History [Drisdol (50,000 Iu)] Magnesium Oxide [Magox 400] 400 mg PO BID 01/21/22 04/08/23 History Pregabalin [Lyrica] 150 mg PO BID 01/21/22 04/08/23 History metFORMIN HCL [Glucophage] 1,000 mg PO BID 01/21/22 04/08/23 History Furosemide [Lasix] 40 mg PO DAILY 09/14/22 04/08/23 History HYDROcodone/APAP 5-325MG [[place] 1 tab PO Q6HR PRN 04/08/23 04/08/23 History 5-325] Potassium Chloride 10 meq PO DAILY 04/08/23 04/08/23 History Triamcinolone 0.1% Cream [Kenalog 1 applicatio TOPICAL BID 04/08/23 04/08/23 History 0.1% Cream] levETIRAcetam [Keppra] 1,500 mg PO BID 04/08/23 04/08/23 History Allergies Allergy/AdvReac Type Severity Reaction Status Date / Time codeine AdvReac Severe Abdominal Verified 09/14/22 15:39 Pain Physical Exam Vitals: Vital Signs Temp Pulse Pulse Resp BP BP Pulse Ox 04/09/23 04:00 97.8 F 90 18 105/69 96 04/09/23 02:00 98 16 04/09/23 00:00 97.6 F 98 16 128/71 95 04/08/23 21:51 94 29 H 130/95 94 L 04/08/23 19:38 86 13 139/79 99 04/08/23 18:37 84 04/08/23 18:34 86 13 100 04/08/23 18:28 79 04/08/23 18:20 98.0 F 85 20 98 Intake and Output 04/08/23 04/09/23 04/09/23 22:59 06:59 14:59 Intake Total 120 Output Total 2650 Balance -2650 120 Intake: Oral 120 Output: Urine 2650 Other: Voiding Method External Catheter # Voids 1 Weight 95.708 kg 95.708 kg GENERAL EXAM: Alert, 62-year-old female, on 4 L nasal cannula, comfortable in no apparent distress. HEAD: Normocephalic. EYES: Normal reaction of pupils, equal size. NOSE: Clear with pink turbinates. THROAT: No erythema or exudates. NECK: No masses, no JVD. CHEST: No chest wall deformity. LUNGS: Equal air entry with no crackles, wheeze, rhonchi or dullness. CVS: S1 and S2 normal with no audible murmur, regular rhythm. ABDOMEN: No hepatosplenomegaly, normal bowel sounds, no guarding or rigidity. SPINE: No scoliosis or deformity SKIN: No rashes CENTRAL NERVOUS SYSTEM: Expressive aphasia, no significant weakness noted. No focal deficits, tone is normal in all 4 extremities. EXTREMITIES: There is no peripheral edema. No clubbing, no cyanosis. Peripheral pulses are intact. Results - Laboratory Findings CBC and BMP: 04/08/23 18:28 04/08/23 18:28 PT/INR, D-dimer PT 13.1 sec (9.0-12.0) H 04/08/23 18:28 INR 1.3 (<1.2) H 04/08/23 18:28 D-Dimer 0.69 mg/L FEU (<0.60) H 04/08/23 18:28 Abnormal lab findings: Abnormal Labs 04/08/23 04/08/23 04/08/23 18:26 18:28 18:28 Hgb 11.0 L MCV 73.8 L MCH 21.5 L MCHC 29.1 L RDW 19.1 H PT 13.1 H INR 1.3 H APTT 19.4 L D-Dimer 0.69 H Potassium Chloride Carbon Dioxide BUN Glucose POC Glucose (mg/dL) 69 L Calcium Magnesium AST ALT Total Protein 04/08/23 04/09/23 18:28 06:20 Hgb MCV MCH MCHC RDW PT INR APTT D-Dimer Potassium 3.2 L Chloride 95 L Carbon Dioxide 40 H BUN 36 H Glucose 57 L POC Glucose (mg/dL) 306 H Calcium 8.3 L Magnesium 2.6 H AST 90 H ALT 76 H Total Protein 6.1 L - Diagnostic Findings Chest x-ray: image reviewed CT scan - chest: image reviewed Assessment and Plan Plan: Acute COPD exacerbation, no evidence of pneumonia. The patient is a chronic smoker and she is been oxygen dependent. Acute on chronic hypoxemic respiratory failure, currently on 4 L of O2 nasal cannula Altered mental status . Most likely this is related to the underlying hypoxemia and the patient was severely hypoxic prior to her hospital admission Suspect urinary tract infection, cultures pending Mild Transaminitis of unclear etiology Chronic and ongoing tobacco dependence History of diabetes mellitus History of hyperlipidemia Hypertension Osteoarthritis. History of gout Plan: No focal neurological deficits that this point in time. No signs of any CVA or seizures Continue Keppra Titrate oxygen flow to maintain a saturation above 90% DuoNeb nebulized treatments 4 times a day IV Solu-Medrol Continue diuretics with Lasix Continue rest of the home medications including [place]. The patient denies taking any excessive amounts of narcotic medications and outpatient basis. We'll continue to follow
[2023-04-09] MEDS: IPRATROPIUM-ALBUTEROL 3 ML NEB INHALATION SCH ×3 (12:20→21:01)
[2023-04-09] MEDS: methylPREDNISolone SOD SUCCI 40 MG/ML 1 ML VIAL IV SCH ×2 (12:30→17:09)
[2023-04-09] MEDS: INSULIN ASPART (NovoLOG) 100 UNIT/ML VIAL SQ SCH ×3 (12:31→21:09)
[2023-04-09] MEDS: metFORMIN 500 MG TAB PO SCH ×2 (12:31→21:09)
[2023-04-09] MEDS: AZITHROMYCIN 500 MG TAB PO SCH (16:14)
[2023-04-09 16:29] LABS: Glucose,Whole Blood 311 mg/dL (70-110)
--- NOTE | 2023-04-09 17:37 | HP ---
HISTORY AND PHYSICAL PRESENTING COMPLAINT: Shortness of breath. HISTORY OF PRESENT ILLNESS: A 62-year-old lady with a past medical history of COPD, on home oxygen, presented to the emergency department with complaints of difficulty in breathing. The patient was noted to be hypoxic at the time of admission in ER and was noted to have SPO2 in 40, while the patient was in room air, the patient was noted to be lethargic and obtunded. The patient was placed on oxygen with significant improvement. Workup initiated in the ER included CT angio, which was negative for pulmonary embolism, no consolidation was noted. The patient had a CBC done, which showed white cell count of 8, hemoglobin 11. D-dimer was elevated at 0.69, however, pulmonary embolism was ruled out. Serum chemistry was obtained at the time of presentation included normal white cell count of 8.1, hemoglobin of 11, platelet count 216. Chemistry showed sodium of 142, potassium of 3.2, chloride of 95, BUN 36, creatinine 0.71, magnesium was 2.6. The patient tested negative for influenza, COVID, and RSV. PAST MEDICAL HISTORY: 1. COPD. 2. Diabetes mellitus. 3. Hypertension. 4. Hyperlipidemia. 5. Osteoarthritis. PAST SURGICAL HISTORY: 1. Back surgery. 2. . 3. Cholecystectomy. 4. Tubal ligation. SOCIAL HISTORY: Everyday smoker. Denies alcohol use. FAMILY HISTORY: Significant for diabetes mellitus in brother, history of cancer in both mother and father. ALLERGIES: To codeine. REVIEW OF SYSTEMS: Essentially negative, except for cough, shortness of breath, fatigue, altered mentation, confusion. PHYSICAL EXAMINATION: VITAL SIGNS: Temperature 98.5, pulse 97, respirations 16, blood pressure 141/75, MAP of 97, on 4 L of oxygen through nasal cannula, saturation 93%. GENERAL: The patient is ill-appearing, alert and oriented x3, appears in distress. CONSTITUTIONAL: Ill appearance. HEENT: Normocephalic and atraumatic. Nasal cannula in place. CARDIOVASCULAR: Regular rate. No murmur. No lower extremity edema. PULMONARY: Decreased breath sound bilaterally. Wheezing audible. No use of accessory muscle. ABDOMEN: Soft. Nontender. Bowel sounds present. MUSCULOSKELETAL: No joint pain. NEUROLOGICAL: Alert and oriented x3. No focal deficit. Appears at baseline. ASSESSMENT: 1. Acute exacerbation of chronic obstructive pulmonary disease. 2. Acute tracheobronchitis. 3. Acute on chronic hypoxic respiratory failure. 4. Acute encephalopathy, secondary to hypoxia. 5. History of diabetes mellitus. 6. Hyperlipidemia. 7. Hypertension. 8. History of gout. PLAN: 1. Continue the patient on IV Solu-Medrol, continue breathing treatments. 2. Continue the patient on azithromycin. 3. In regard to history of diabetes mellitus, continue the patient on Farxiga and glimepiride, continue sliding scale insulin. 4. In regard to history of seizure disorder, continue the patient on Keppra. 5. Continue the patient on IV Protonix. 6. The patient is also receiving steroids. Pulmonary Medicine consulted as well. 7. CODE STATUS IS FULL CODE. Total time spent on H and P is 35 minutes. MMODL / IJN: [id number] /
[2023-04-09 20:08] LABS: Glucose,Whole Blood 470 mg/dL (70-110)
[2023-04-09] MEDS: ATORVASTATIN 80 MG TAB PO SCH (21:09)
[2023-04-09] MEDS: CYCLOBENZAPRINE 10 MG TAB PO SCH (21:10)
[2023-04-10] MEDS: HYDROcodone/APAP 5-325MG 1 EACH TAB PO PRN ×3 (01:00→20:42)
[2023-04-10] MEDS: methylPREDNISolone SOD SUCCI 40 MG/ML 1 ML VIAL IV SCH ×5 (01:00→23:11)
[2023-04-10] MEDS: FUROSEMIDE 40 MG TAB PO SCH ×4 (01:01→23:11)
[2023-04-10 06:12] LABS: Glucose,Whole Blood 280 mg/dL (70-110)
[2023-04-10] MEDS: INSULIN ASPART (NovoLOG) 100 UNIT/ML VIAL SQ SCH ×4 (06:37→20:37)
[2023-04-10] MEDS: PANTOPRAZOLE 40 MG TABLET PO SCH (06:37)
[2023-04-10 07:39] LABS: Anisocytosis Slight; HCT 42.4 % (34.0-46.0); Hypochromasia Marked; MCH 21.6 pg (25.0-35.0); MCHC 28.4 g/dL (31.0-37.0); MCV 76.1 fL (80.0-100.0); Mean Platelet Volume 8.9; Microcytosis Moderate; Platelet Count 217 k/uL (150-450); Poikilocytosis Moderate; RBC 5.57 m/uL (3.80-5.40); RDW 18.9 % (11.5-15.5); WBC 19.4 k/uL (3.8-10.6)
[2023-04-10 07:52] LABS: African American GFR (CKD) >90 (>60 ml/min/1.73 sqM); Blood Urea Nitrogen 35 mg/dL (7-17); C Reactive Protein 2.1 mg/dL (<1.0); Chloride 92 mmol/L (98-107); Glucose 237 mg/dL (74-99); Non-African American GFR(CKD) 81 (>60 ml/min/1.73 sqM); Potassium 3.6 mmol/L (3.5-5.1); Sodium 143 mmol/L (137-145)
[2023-04-10 07:55] LABS: Anion Gap 15 mmol/L; Carbon Dioxide 36 mmol/L (22-30)
[2023-04-10] MEDS: GLIMEPIRIDE 4 MG TAB PO SCH (08:30)
[2023-04-10] MEDS: DAPAGLIFLOZIN PROPANEDIOL 10 MG TABLET PO SCH (08:30)
[2023-04-10] MEDS: PREGABALIN 75 MG CAP PO SCH ×2 (08:30→20:36)
[2023-04-10] MEDS: ASPIRIN 325 MG TAB PO SCH (08:30)
[2023-04-10] MEDS: MAGNESIUM OXIDE 400 MG TAB PO SCH ×2 (08:30→20:37)
[2023-04-10] MEDS: POTASSIUM CHLORIDE ER 10 MEQ TAB.ER.PRT PO SCH (08:30)
[2023-04-10] MEDS: FENOFIBRATE 160 MG TAB PO SCH (08:31)
[2023-04-10] MEDS: metFORMIN 500 MG TAB PO SCH ×2 (08:31→20:36)
[2023-04-10] MEDS: allopurinoL 100 MG TAB PO SCH (08:31)
[2023-04-10] MEDS: IPRATROPIUM-ALBUTEROL 3 ML NEB INHALATION SCH ×4 (10:07→20:43)
[2023-04-10 11:40] LABS: Glucose,Whole Blood 308 mg/dL (70-110)
--- NOTE | 2023-04-10 12:07 | P.PN ---
Subjective Progress Note Date: 04/10/23 62-year-old female patient, known history of COPD, maintain on home oxygen, comes into the hospital because of some altered mentation and shortness of breath. The patient was apparently hypoxic with a pulse ox of 40% on room air oxygen and his symptoms the patient was quite lethargic and obtunded. Currently she is on 4 L and she is awake and alert and communicating. She has had similar hospital admissions where she presented hospital because of altered mentation. Neuro workup has been done. No evidence of any CVA. She was considered to have seizures although this has not been officially confirmed the patient admitted on [facility]. It is very much likely that her encephalopathy is related to hypoxemic events. during this current admission, the patient was given a CT angiogram that showed no evidence of any pulmonary embolism. No focal consolidation. There is some bibasilar atelectatic change and the rest of the blood work showed a WBC of 8.0 with a hemoglobin of 11. D-dimer is 0.69. Sodium level was at 142, bicarb is at 40, BUN is at 36 with a creatinine of 0.7. Influenza a and B and RSV and Covid 17-year-old negative. On today's evaluation of 04/10/2023,and the patient's shortness of breath. Patient is improving. I was told that she is having episodes of confusion. Nev ertheless, at the time of my evaluation, the patient was appropriate. She is on bronchodilators and steroids. Her white cycles of 19.4 with a hemoglobin of 12 BUN is 35 with a creatinine of 0.7 and a sodium level is 143. The cultures are negative. Objective - Vital Signs Vital signs: Vital Signs Temp 98.6 F 04/10/23 04:50 Pulse 94 04/10/23 10:15 Resp 18 04/10/23 08:28 BP 117/71 04/10/23 08:28 Pulse Ox 91 L 04/10/23 10:07 FiO2 Intake & Output 04/09/23 04/10/23 04/10/23 18:59 06:59 18:59 Intake Total 1560 240 Output Total 1400 2100 400 Balance 160 -2100 -160 Weight 95.708 kg Intake: Oral 1560 240 Output: Urine 1400 2100 400 Straight 600 Other: Voiding Method External Catheter External Catheter - Exam GENERAL EXAM: Alert, 62-year-old female, on 4 L nasal cannula, comfortable in no apparent distress. HEAD: Normocephalic. EYES: Normal reaction of pupils, equal size. NOSE: Clear with pink turbinates. THROAT: No erythema or exudates. NECK: No masses, no JVD. CHEST: No chest wall deformity. LUNGS: Equal air entry with no crackles, wheeze, rhonchi or dullness. CVS: S1 and S2 normal with no audible murmur, regular rhythm. ABDOMEN: No hepatosplenomegaly, normal bowel sounds, no guarding or rigidity. SPINE: No scoliosis or deformity SKIN: No rashes CENTRAL NERVOUS SYSTEM: Expressive aphasia, no significant weakness noted. No focal deficits, tone is normal in all 4 extremities. EXTREMITIES: There is no peripheral edema. No clubbing, no cyanosis. Peripheral pulses are intact. - Labs CBC & Chem 7: 04/10/23 06:04/10/23 06:02 Labs: Abnormal Lab Results - Last 24 Hours (Table) 04/09/23 04/09/23 04/09/23 Range/Units 11:55 16:28 20:07 WBC (3.8-10.6) k/uL RBC (3.80-5.40) m/uL MCV (80.0-100.0) fL MCH (25.0-35.0) pg MCHC (31.0-37.0) g/dL RDW (11.5-15.5) % Chloride (98-107) mmol/L Carbon Dioxide (22-30) mmol/L BUN (7-17) mg/dL Glucose (74-99) mg/dL POC Glucose (mg/dL) 345 H 311 H 470 H (70-110) mg/dL C-Reactive Protein (<1.0) mg/dL 04/10/23 04/10/23 04/10/23 Range/Units 06:02 06:02 06:11 WBC 19.4 H (3.8-10.6) k/uL RBC 5.57 H (3.80-5.40) m/uL MCV 76.1 L (80.0-100.0) fL MCH 21.6 L (25.0-35.0) pg MCHC 28.4 L (31.0-37.0) g/dL RDW 18.9 H (11.5-15.5) % Chloride 92 L (98-107) mmol/L Carbon Dioxide 36 H (22-30) mmol/L BUN 35 H (7-17) mg/dL Glucose 237 H (74-99) mg/dL POC Glucose (mg/dL) 280 H (70-110) mg/dL C-Reactive Protein 2.1 H (<1.0) mg/dL Assessment and Plan Plan: Acute COPD exacerbation, no evidence of pneumonia. The patient is a chronic smoker and she is been oxygen dependent. Acute on chronic hypoxemic respiratory failure, currently on 4 L of O2 nasal cannula Altered mental status . Most likely this is related to the underlying hypoxemia and the patient was severely hypoxic prior to her hospital admission Suspect urinary tract infection, cultures pending Mild Transaminitis of unclear etiology Chronic and ongoing tobacco dependence History of diabetes mellitus History of hyperlipidemia Hypertension Osteoarthritis. History of gout Plan: Continue same treatment /Shortness of breath is improving Episodes of confusion, consider underlying dementia, appropriate at time of my evaluation No focal neurological deficits that this point in time. No signs of any CVA or seizures Continue Keppra Titrate oxygen flow to maintain a saturation above 90% DuoNeb nebulized treatments 4 times a day IV Solu-Medrol Monitor the blood sugar and the medical team to operative patient has a blood sugar control Continue diuretics with Lasix Continue rest of the home medications including [place]. The patient denies taking any excessive amounts of narcotic medications and outpatient basis. We'll continue to follow
[2023-04-10] MEDS: AZITHROMYCIN 500 MG TAB PO SCH (12:26)
--- NOTE | 2023-04-10 14:07 | P.PN ---
Subjective Progress Note Date: 04/10/23 2-year-old female patient, known history of COPD, maintain on home oxygen, comes into the hospital because of some altered mentation and shortness of breath 04/09/23 04/10/2023 shortness of breath is better, eager to go home, counseled WBC high due to steroids ROS Other: All systems not noted in ROS Statement are negative. Objective - Vital Signs Vital signs: Vital Signs Temp 98.6 F 04/10/23 04:50 Pulse 71 04/10/23 12:30 Resp 20 04/10/23 12:30 BP 106/71 04/10/23 12:30 Pulse Ox 91 L 04/10/23 12:30 FiO2 Intake & Output 04/09/23 04/10/23 04/10/23 18:59 06:59 18:59 Intake Total 1560 240 Output Total 1400 2100 400 Balance 160 -2100 -160 Weight 95.708 kg Intake: Oral 1560 240 Output: Urine 1400 2100 400 Straight 600 Other: Voiding Method External Catheter External Catheter - Exam General appearance: alert, ill , nasal canulla in place Head exam: Present: atraumatic, normocephalic, normal inspection Respiratory exam, decreased breath sounds Cardiovascular Exam: Present: regular rate, normal rhythm, normal heart sounds. Absent: systolic murmur, diastolic murmur, rubs, gallop, clicks GI/Abdominal exam: Present: soft, normal bowel sounds. Absent: distended, tenderness, guarding, rebound, rigid, bruit, pulsatile mass (Obese abdomen) Extremities exam: Present: normal inspection, full ROM, normal capillary refill. Absent: tenderness, pedal edema, joint swelling, calf tenderness Neurological exam: Present: alert, oriented X3, CN II-XII intact Skin exam: Present: warm, dry, intact, normal color. Absent: rash - Labs CBC & Chem 7: 04/10/23 06:02 04/10/23 06:02 Labs: Abnormal Lab Results - Last 24 Hours (Table) 04/09/23 04/09/23 04/10/23 Range/Units 16:28 20:07 06:02 WBC 19.4 H (3.8-10.6) k/uL RBC 5.57 H (3.80-5.40) m/uL MCV 76.1 L (80.0-100.0) fL MCH 21.6 L (25.0-35.0) pg MCHC 28.4 L (31.0-37.0) g/dL RDW 18.9 H (11.5-15.5) % Chloride (98-107) mmol/L Carbon Dioxide (22-30) mmol/L BUN (7-17) mg/dL Glucose (74-99) mg/dL POC Glucose (mg/dL) 311 H 470 H (70-110) mg/dL C-Reactive Protein (<1.0) mg/dL 04/10/23 04/10/23 04/10/23 Range/Units 06:02 06:11 11:38 WBC (3.8-10.6) k/uL RBC (3.80-5.40) m/uL MCV (80.0-100.0) fL MCH (25.0-35.0) pg MCHC (31.0-37.0) g/dL RDW (11.5-15.5) % Chloride 92 L (98-107) mmol/L Carbon Dioxide 36 H (22-30) mmol/L BUN 35 H (7-17) mg/dL Glucose 237 H (74-99) mg/dL POC Glucose (mg/dL) 280 H 308 H (70-110) mg/dL C-Reactive Protein 2.1 H (<1.0) mg/dL Microbiology - Last 24 Hours (Table) 04/08/23 18:28 Blood Culture - Preliminary Blood Assessment and Plan Assessment: Assessment and Plan * Acute COPD exacerbation, Tracheobronhitis * Acute on chronic hypoxemic respiratory failure baseline 2 L oxygen * Acute Metabolic Encaphaloathy * Chronic and ongoing tobacco dependence * History of diabetes mellitus * History of hyperlipidemia * Hypertension * Osteoarthritis. * History of gout * Seziure disorder Continue Azithromycin Day 2 Pulm Following Continue IV Solumedrol Continue Insulin Sliding scale Oxygen support Home meds reconciled
[2023-04-10 16:12] LABS: Glucose,Whole Blood 394 mg/dL (70-110)
[2023-04-10 20:07] LABS: Glucose,Whole Blood 333 mg/dL (70-110)
[2023-04-10] MEDS: ATORVASTATIN 80 MG TAB PO SCH (20:36)
[2023-04-10] MEDS: CYCLOBENZAPRINE 10 MG TAB PO SCH (20:36)
[2023-04-11 06:07] LABS: Glucose,Whole Blood 113 mg/dL (70-110)
[2023-04-11] MEDS: methylPREDNISolone SOD SUCCI 40 MG/ML 1 ML VIAL IV SCH ×3 (06:22→17:30)
[2023-04-11] MEDS: INSULIN ASPART (NovoLOG) 100 UNIT/ML VIAL SQ SCH ×4 (06:26→21:16)
[2023-04-11] MEDS: PANTOPRAZOLE 40 MG TABLET PO SCH (06:26)
[2023-04-11] MEDS: metFORMIN 500 MG TAB PO SCH ×2 (08:07→20:51)
[2023-04-11] MEDS: FUROSEMIDE 40 MG TAB PO SCH ×2 (08:07→17:38)
[2023-04-11] MEDS: ASPIRIN 325 MG TAB PO SCH (08:07)
[2023-04-11] MEDS: FENOFIBRATE 160 MG TAB PO SCH (08:07)
[2023-04-11] MEDS: ERGOCALCIFEROL 1,250 MCG (50,000 IU) CAPSULE PO SCH (08:07)
[2023-04-11] MEDS: GLIMEPIRIDE 4 MG TAB PO SCH (08:07)
[2023-04-11] MEDS: MAGNESIUM OXIDE 400 MG TAB PO SCH ×2 (08:07→20:51)
[2023-04-11] MEDS: DAPAGLIFLOZIN PROPANEDIOL 10 MG TABLET PO SCH (08:08)
[2023-04-11] MEDS: PREGABALIN 75 MG CAP PO SCH ×2 (08:08→20:51)
[2023-04-11] MEDS: allopurinoL 100 MG TAB PO SCH (08:08)
[2023-04-11] MEDS: POTASSIUM CHLORIDE ER 10 MEQ TAB.ER.PRT PO SCH (08:08)
[2023-04-11] MEDS: IPRATROPIUM-ALBUTEROL 3 ML NEB INHALATION SCH ×4 (10:00→21:08)
[2023-04-11 12:14] LABS: Glucose,Whole Blood >600 mg/dL (70-110)
[2023-04-11 12:14] LABS: Glucose,Whole Blood 375 mg/dL (70-110)
[2023-04-11] MEDS: AZITHROMYCIN 500 MG TAB PO SCH (12:37)
--- NOTE | 2023-04-11 13:23 | P.PN ---
Subjective Progress Note Date: 04/11/23 62-year-old female patient, known history of COPD, maintain on home oxygen, comes into the hospital because of some altered mentation and shortness of breath 04/09/23 04/10/2023 shortness of breath is better, eager to go home, counseled WBC high due to steroids REVIEW OF SYSTEMS: Cough, shortness of breath, weakness CONSTITUTIONAL: No fever, no malaise, no fatigue. HEENT: No recent visual problems or hearing problems. Denied any sore throat. CARDIOVASCULAR: No chest pain, orthopnea, PND, no palpitations, no syncope. PULMONARY: No shortness of breath, no cough, no hemoptysis. GASTROINTESTINAL: No diarrhea, no nausea, no vomiting, no abdominal pain. NEUROLOGICAL: No headaches, no weakness, no numbness. HEMATOLOGICAL: Denies any bleeding or petechiae. GENITOURINARY: Denies any burning micturition, frequency, or urgency. MUSCULOSKELETAL/RHEUMATOLOGICAL: Denies any joint pain, swelling, or any muscle pain. ENDOCRINE: Denies any polyuria or polydipsia. Objective - Vital Signs Vital signs: Vital Signs Temp 99.0 F 04/11/23 08:05 Pulse 92 04/11/23 10:09 Resp 18 04/11/23 08:05 BP 126/75 04/11/23 08:05 Pulse Ox 92 L 04/11/23 10:03 FiO2 Intake & Output 04/10/23 04/11/23 04/11/23 18:59 06:59 18:59 Intake Total 500 490 Output Total 1100 200 Balance -600 290 Weight 74.5 kg Intake: IV 20 10 Invasive Line 2 20 10 Oral 480 480 Output: Urine 1100 200 Other: Voiding Method External Catheter External Catheter External Catheter # Voids 2 # Bowel Movements 1 - Exam General appearance: alert, ill , nasal canulla in place Head exam: Present: atraumatic, normocephalic, normal inspection Respiratory exam, decreased breath sounds Cardiovascular Exam: Present: regular rate, normal rhythm, normal heart sounds. Absent: systolic murmur, diastolic murmur, rubs, gallop, clicks GI/Abdominal exam: Present: soft, normal bowel sounds. Absent: distended, tenderness, guarding, rebound, rigid, bruit, pulsatile mass (Obese abdomen) Extremities exam: Present: normal inspection, full ROM, normal capillary refill. Absent: tenderness, pedal edema, joint swelling, calf tenderness Neurological exam: Present: alert, oriented X3, CN II-XII intact Skin exam: Present: warm, dry, intact, normal color. Absent: rash - Labs CBC & Chem 7: 04/10/23 06:02 04/10/23 06:02 Labs: Abnormal Lab Results - Last 24 Hours (Table) 04/10/23 04/10/23 04/11/23 Range/Units 16:10 20:05 06:04 POC Glucose (mg/dL) 394 H 333 H 113 H (70-110) mg/dL 04/11/23 04/11/23 Range/Units 12:08 12:10 POC Glucose (mg/dL) >600 H 375 H (70-110) mg/dL Microbiology - Last 24 Hours (Table) 04/08/23 18:28 Blood Culture - Preliminary Blood 04/08/23 18:25 Blood Culture Gram Stain - Preliminary Blood Assessment and Plan Assessment: Assessment and Plan * Acute COPD exacerbation, Tracheobronhitis * Acute on chronic hypoxemic respiratory failure baseline 2 L oxygen * Acute Metabolic Encaphaloathy * Chronic and ongoing tobacco dependence * History of diabetes mellitus * History of hyperlipidemia * Hypertension * Osteoarthritis. * History of gout * Seziure disorder In regards to COPD Continue Azithromycin Day 3, venous blood gas ordered,Pulm Following,Continue IV Solumedrol In regards to diabetes mellitus Continue Insulin Sliding scale, metformin In regards to history of hypertension continue aspirin, Lipitor, Lasix Regards to seizure disorder continue patient on Keppra Oxygen support Home meds reconciled
--- NOTE | 2023-04-11 14:50 | P.PN ---
Subjective Progress Note Date: 04/11/23 62-year-old female patient, known history of COPD, maintain on home oxygen, comes into the hospital because of some altered mentation and shortness of breath. The patient was apparently hypoxic with a pulse ox of 40% on room air oxygen and his symptoms the patient was quite lethargic and obtunded. Currently she is on 4 L and she is awake and alert and communicating. She has had similar hospital admissions where she presented hospital because of altered mentation. Neuro workup has been done. No evidence of any CVA. She was considered to have seizures although this has not been officially confirmed the patient admitted on [facility]. It is very much likely that her encephalopathy is related to hypoxemic events. during this current admission, the patient was given a CT angiogram that showed no evidence of any pulmonary embolism. No focal consolidation. There is some bibasilar atelectatic change and the rest of the blood work showed a WBC of 8.0 with a hemoglobin of 11. D-dimer is 0.69. Sodium level was at 142, bicarb is at 40, BUN is at 36 with a creatinine of 0.7. Influenza a and B and RSV and Covid 17-year-old negative. On today's evaluation of 04/10/2023,and the patient's shortness of breath. Patient is improving. I was told that she is having episodes of confusion. Nevertheless, at the time of my evaluation, the patient was appropriate. She is on bronchodilators and steroids. Her white cycles of 19.4 with a hemoglobin of 12 BUN is 35 with a creatinine of 0.7 and a sodium level is 143. The cultures are negative. The patient is seen today 04/11/2023 in follow-up on the selective care unit. She is currently sitting up in bed. Awake and alert. She is having issues with episodes of confusion still today. She had her oxygen off and her O2 saturations were in the 70s. On the back on 4 L nasal cannula with O2 saturation 92%. Preliminary blood culture positive for anaerobic gram-positive bacilli. Blood glucose 375. She is currently on azithromycin. Objective - Vital Signs Vital signs: Vital Signs Temp 99.0 F 04/11/23 08:05 Pulse 92 04/11/23 10:09 Resp 18 04/11/23 08:05 BP 126/75 04/11/23 08:05 Pulse Ox 92 L 04/11/23 10:03 FiO2 Intake & Output 04/10/23 04/11/23 04/11/23 18:59 06:59 18:59 Intake Total 500 490 Output Total 1100 200 Balance -600 290 Weight 74.5 kg Intake: IV 20 10 Invasive Line 2 20 10 Oral 480 480 Output: Urine 1100 200 Other: Voiding Method External Catheter External Catheter External Catheter # Voids 2 # Bowel Movements 1 - Exam GENERAL EXAM: Alert, confused at times, 62-year-old female, on 4 L nasal cannula, comfortable in no apparent distress. HEAD: Normocephalic. EYES: Normal reaction of pupils, equal size. NOSE: Clear with pink turbinates. THROAT: No erythema or exudates. NECK: No masses, no JVD. CHEST: No chest wall deformity. LUNGS: Equal air entry with no crackles, wheeze, rhonchi or dullness. CVS: S1 and S2 normal with no audible murmur, regular rhythm. ABDOMEN: No hepatosplenomegaly, normal bowel sounds, no guarding or rigidity. SPINE: No scoliosis or deformity SKIN: No rashes CENTRAL NERVOUS SYSTEM: Expressive aphasia, no significant weakness noted. No focal deficits, tone is normal in all 4 extremities. EXTREMITIES: There is no peripheral edema. No clubbing, no cyanosis. Peripheral pulses are intact. - Labs CBC & Chem 7: 04/10/23 06:02 04/10/23 06:02 Labs: Abnormal Lab Results - Last 24 Hours (Table) 04/10/23 04/10/23 04/11/23 Range/Units 16:10 20:05 06:04 POC Glucose (mg/dL) 394 H 333 H 113 H (70-110) mg/dL 04/11/23 04/11/23 Range/Units 12:08 12:10 POC Glucose (mg/dL) >600 H 375 H (70-110) mg/dL Microbiology - Last 24 Hours (Table) 04/08/23 18:25 Blood Culture Gram Stain - Preliminary Blood Blood Culture - Preliminary Anaerobic Gm Positive Bacill 04/08/23 18:28 Blood Culture - Preliminary Blood Assessment and Plan Assessment: Acute exacerbation of chronic obstructive pulmonary disease, no evidence of pneumonia. The patient is a chronic smoker and she is oxygen dependent. CT angiogram ruled out central pulmonary embolism. There is evidence of cardiomegaly. Mild pulmonary vascular congestion. Bilateral atelectasis. No focal lobar consolidation. Acute on chronic hypoxemic respiratory failure, currently on 4 L of O2 nasal cannula Altered mental status. Most likely this is related to the underlying hypoxemia and the patient was severely hypoxic prior to her hospital admission Bacteremia secondary to anaerobic gram-positive bacilli, suspect contamination Mild transaminitis of unclear etiology Chronic and ongoing tobacco dependence History of diabetes mellitus History of hyperlipidemia Hypertension Osteoarthritis. History of gout Plan: The patient was seen and evaluated Medications and labs reviewed Continue oxygen at 4 L/m per nasal cannula Significant de-saturations off oxygen Continue bronchodilators and steroids We will continue to follow I have personally seen and examined the patient, performed the documentation and the assessment and plan as written. Number of minutes spent on the visit: 10.
[2023-04-11 16:28] LABS: VBG PH 7.37 (7.31-7.41)
[2023-04-11 17:19] LABS: Glucose,Whole Blood 391 mg/dL (70-110)
[2023-04-11 19:55] LABS: Glucose,Whole Blood 227 mg/dL (70-110)
[2023-04-11] MEDS: ATORVASTATIN 80 MG TAB PO SCH (20:50)
[2023-04-11] MEDS: CYCLOBENZAPRINE 10 MG TAB PO SCH (20:51)
[2023-04-12] MEDS: methylPREDNISolone SOD SUCCI 40 MG/ML 1 ML VIAL IV SCH ×4 (00:37→17:51)
[2023-04-12] MEDS: FUROSEMIDE 40 MG TAB PO SCH ×3 (00:37→15:15)
[2023-04-12 06:20] LABS: Glucose,Whole Blood 189 mg/dL (70-110)
[2023-04-12] MEDS: INSULIN ASPART (NovoLOG) 100 UNIT/ML VIAL SQ SCH ×4 (06:41→20:34)
[2023-04-12] MEDS: PANTOPRAZOLE 40 MG TABLET PO SCH (06:42)
[2023-04-12] MEDS: POTASSIUM CHLORIDE ER 10 MEQ TAB.ER.PRT PO SCH (08:24)
[2023-04-12] MEDS: metFORMIN 500 MG TAB PO SCH ×2 (08:24→20:35)
[2023-04-12] MEDS: FENOFIBRATE 160 MG TAB PO SCH (08:25)
[2023-04-12] MEDS: GLIMEPIRIDE 4 MG TAB PO SCH (08:25)
[2023-04-12] MEDS: MAGNESIUM OXIDE 400 MG TAB PO SCH ×2 (08:25→20:35)
[2023-04-12] MEDS: DAPAGLIFLOZIN PROPANEDIOL 10 MG TABLET PO SCH (08:25)
[2023-04-12] MEDS: ASPIRIN 325 MG TAB PO SCH (08:25)
[2023-04-12] MEDS: PREGABALIN 75 MG CAP PO SCH ×2 (08:25→20:35)
[2023-04-12] MEDS: allopurinoL 100 MG TAB PO SCH (08:25)
[2023-04-12] MEDS: IPRATROPIUM-ALBUTEROL 3 ML NEB INHALATION SCH ×4 (09:28→21:49)
[2023-04-12] MEDS ORDERED: AZITHROMYCIN 500 MG in SODIUM CHLORIDE 0.9% 250 ML IVPB SCH (09:45)
[2023-04-12 11:43] LABS: Glucose,Whole Blood 256 mg/dL (70-110)
[2023-04-12] MEDS: CEFEPIME 2 GM in SODIUM CHLORIDE 0.9% 100 ML IVPB SCH ×2 (12:29→17:51)
[2023-04-12 12:33] LABS: VBG PH 7.45 (7.31-7.41)
[2023-04-12 12:35] LABS: Anisocytosis Slight; HCT 41.9 % (34.0-46.0); HGB 11.6 gm/dL (11.4-16.0); Hypochromasia Marked; MCH 21.1 pg (25.0-35.0); MCHC 27.7 g/dL (31.0-37.0); MCV 76.1 fL (80.0-100.0); Mean Platelet Volume 9.1; Microcytosis Slight; Platelet Count 160 k/uL (150-450); Poikilocytosis Moderate; RBC 5.51 m/uL (3.80-5.40); RDW 19.3 % (11.5-15.5); WBC 19.2 k/uL (3.8-10.6)
--- NOTE | 2023-04-12 12:49 | P.PN ---
Subjective Progress Note Date: 04/12/23 62-year-old female patient, known history of COPD, maintain on home oxygen, comes into the hospital because of some altered mentation and shortness of breath 04/09/23 04/10/2023 shortness of breath is better, eager to go home, counseled WBC high due to steroids On 04/11: Patient was noted to be confused, venous blood gas obtained showed hypercapnia pCO2 of 80 BiPAP ordered pulmonary medicine aware 04/12: Patient intolerant to BiPAP, follow venous blood as ordered, blood cultures noted to be positive for gram-positive bacilli, infectious disease information resource consultant CT abdomen and pelvis ordered REVIEW OF SYSTEMS: Cough, shortness of breath, weakness CONSTITUTIONAL: No fever, no malaise, no fatigue. HEENT: No recent visual problems or hearing problems. Denied any sore throat. CARDIOVASCULAR: No chest pain, orthopnea, PND, no palpitations, no syncope. PULMONARY: No shortness of breath, no cough, no hemoptysis. GASTROINTESTINAL: No diarrhea, no nausea, no vomiting, no abdominal pain. NEUROLOGICAL: No headaches, no weakness, no numbness. HEMATOLOGICAL: Denies any bleeding or petechiae. GENITOURINARY: Denies any burning micturition, frequency, or urgency. MUSCULOSKELETAL/RHEUMATOLOGICAL: Denies any joint pain, swelling, or any muscle pain. ENDOCRINE: Denies any polyuria or polydipsia. Objective - Vital Signs Vital signs: Vital Signs Temp 98.4 F 04/12/23 11:18 Pulse 98 04/12/23 11:18 Resp 18 04/12/23 11:18 BP 136/81 04/12/23 11:18 Pulse Ox 90 L 04/12/23 11:18 FiO2 40 04/11/23 21:09 Intake & Output 04/11/23 04/12/23 04/12/23 18:59 06:59 18:59 Intake Total 338 480 Output Total 1600 Balance -1262 480 Weight 71.5 kg Intake: Oral 338 480 Output: Urine 1600 Other: Voiding Method External Catheter Diaper Incontinent # Voids 0 2 1 # Bowel Movements 2 1 - Exam General appearance: alert, ill , nasal canulla in place Head exam: Present: atraumatic, normocephalic, normal inspection Respiratory exam, decreased breath sounds, no use of accessory muscle Cardiovascular Exam: Present: regular rate, normal rhythm, normal heart sounds. Absent: systolic murmur, diastolic murmur, rubs, gallop, clicks GI/Abdominal exam: Present: soft, normal bowel sounds. Absent: distended, tenderness, guarding, rebound, rigid, bruit, pulsatile mass (Obese abdomen) Extremities exam: Present: normal inspection, full ROM, normal capillary refill. Absent: tenderness, pedal edema, joint swelling, calf tenderness Neurological exam: Present: alert, oriented X 2, confused and does not appear to be at baseline Skin exam: Present: warm, dry, intact, normal color. Absent: rash - Labs CBC & Chem 7: 04/12/23 12:17 04/10/23 06:02 Labs: Abnormal Lab Results - Last 24 Hours (Table) 04/11/23 04/11/23 04/11/23 Range/Units 16:00 17:18 19:53 WBC (3.8-10.6) k/uL RBC (3.80-5.40) m/uL MCV (80.0-100.0) fL MCH (25.0-35.0) pg MCHC (31.0-37.0) g/dL RDW (11.5-15.5) % VBG pCO2 80 H* (37-51) mmHg VBG HCO3 45 H (24-28) mmol/L POC Glucose (mg/dL) 391 H 227 H (70-110) mg/dL 04/12/23 04/12/23 04/12/23 Range/Units 06:18 11:41 12:17 WBC 19.2 H (3.8-10.6) k/uL RBC 5.51 H (3.80-5.40) m/uL MCV 76.1 L (80.0-100.0) fL MCH 21.1 L (25.0-35.0) pg MCHC 27.7 L (31.0-37.0) g/dL RDW 19.3 H (11.5-15.5) % VBG pCO2 (37-51) mmHg VBG HCO3 (24-28) mmol/L POC Glucose (mg/dL) 189 H 256 H (70-110) mg/dL Microbiology - Last 24 Hours (Table) 04/08/23 18:25 Blood Culture Gram Stain - Preliminary Blood Blood Culture - Preliminary Anaerobic Gm Positive Bacill 04/08/23 18:28 Blood Culture - Preliminary Blood Assessment and Plan Assessment: Assessment and Plan * Acute COPD exacerbation, Tracheobronhitis * Acute on chronic hypoxemic hypercapnic respiratory failure baseline 2 L oxygen * Gram positive bacilli bacteremia * Acute Metabolic Encephalopathy * Chronic and ongoing tobacco dependence * History of diabetes mellitus * History of hyperlipidemia * Hypertension * Osteoarthritis. * History of gout * Seziure disorder In regards to COPD Continue Azithromycin Day 4/ , venous collection shows hypercapnia, follow-up CBC ordered use BiPAP as needed In regards to bacteremia continue patient on cefepime, infectious disease co nsulted CT abdomen pelvis ordered In regards to diabetes mellitus Continue Insulin Sliding scale, metformin In regards to history of hypertension continue aspirin, Lipitor, Lasix Regards to seizure disorder continue patient on Keppra Oxygen support Home meds reconciled
[2023-04-12 12:53] LABS: African American GFR (CKD) >90 (>60 ml/min/1.73 sqM); Blood Urea Nitrogen 39 mg/dL (7-17); Calcium 9.6 mg/dL (8.4-10.2); Chloride 88 mmol/L (98-107); Glucose 249 mg/dL (74-99); Magnesium 1.5 mg/dL (1.6-2.3); Non-African American GFR(CKD) 84 (>60 ml/min/1.73 sqM); Potassium 4.3 mmol/L (3.5-5.1); Sodium 140 mmol/L (137-145)
[2023-04-12 12:59] LABS: Anion Gap 9 mmol/L
[2023-04-12 13:01] LABS: Carbon Dioxide 43 mmol/L (22-30)
[2023-04-12] MEDS: IOPAMIDOL CONTRAST (ORAL USE) VIAL PO PRN ×2 (14:01→15:15)
--- NOTE | 2023-04-12 14:23 | P.PN ---
Subjective Progress Note Date: 04/12/23 62-year-old female patient, known history of COPD, maintain on home oxygen, comes into the hospital because of some altered mentation and shortness of breath. The patient was apparently hypoxic with a pulse ox of 40% on room air oxygen and his symptoms the patient was quite lethargic and obtunded. Currently she is on 4 L and she is awake and alert and communicating. She has had similar hospital admissions where she presented hospital because of altered mentation. Neuro workup has been done. No evidence of any CVA. She was considered to have seizures although this has not been officially confirmed the patient admitted on [facility]. It is very much likely that her encephalopathy is related to hypoxemic events. during this current admission, the patient was given a CT angiogram that showed no evidence of any pulmonary embolism. No focal consolidation. There is some bibasilar atelectatic change and the rest of the blood work showed a WBC of 8.0 with a hemoglobin of 11. D-dimer is 0.69. Sodium level was at 142, bicarb is at 40, BUN is at 36 with a creatinine of 0.7. Influenza a and B and RSV and Covid 17-year-old negative. On today's evaluation of 04/10/2023,and the patient's shortness of breath. Patient is improving. I was told that she is having episodes of confusion. Nevertheless, at the time of my evaluation, the patient was appropriate. She is on bronchodilators and steroids. Her white cycles of 19.4 with a hemoglobin of 12 BUN is 35 with a creatinine of 0.7 and a sodium level is 143. The cultures are negative. The patient is seen today 04/11/2023 in follow-up on the selective care unit. She is currently sitting up in bed. Awake and alert. She is having issues with episodes of confusion still today. She had her oxygen off and her O2 saturations were in the 70s. On the back on 4 L nasal cannula with O2 saturation 92%. Preliminary blood culture positive for anaerobic gram-positive bacilli. Blood glucose 375. She is currently on azithromycin. The patient is seen today 04/12/2023 in follow-up on the selective care unit. She is currently resting comfortably in bed. Awake and alert in no acute distress. Still requiring 5 L high flow nasal cannula to maintain O2 saturations in the 90s. She is continued on cefepime. Blood cultures showing C lostridium perfringens. White count 19.2. Hemoglobin 11.6. Platelets 160. Sodium 140. Potassium 4.3. Bicarb 43. BUN 39. Creatinine 0.76. Glucose 249. Remains on DuoNeb inhalations, IV Solu-Medrol. Remains on oral diuretics. Currently in a -1.2 L balance. Computed tomography scan of the abdomen and pelvis pending. Objective - Vital Signs Vital signs: Vital Signs Temp 98.4 F 04/12/23 11:18 Pulse 98 04/12/23 11:18 Resp 18 04/12/23 11:18 BP 136/81 04/12/23 11:18 Pulse Ox 90 L 04/12/23 11:18 FiO2 40 04/11/23 21:09 Intake & Output 04/11/23 04/12/23 04/12/23 18:59 06:59 18:59 Intake Total 338 590 Output Total 1600 Balance -1262 590 Weight 71.5 kg 71.5 kg Intake: Oral 338 590 Output: Urine 1600 Other: Voiding Method External Catheter Diaper Incontinent # Voids 0 2 1 # Bowel Movements 2 1 - Exam GENERAL EXAM: Alert, confused at times, 62-year-old female, on 5 L nasal cannula, comfortable in no apparent distress. HEAD: Normocephalic. EYES: Normal reaction of pupils, equal size. NOSE: Clear with pink turbinates. THROAT: No erythema or exudates. NECK: No masses, no JVD. CHEST: No chest wall deformity. LUNGS: Equal air entry with faint crackles in the posterior bases. CVS: S1 and S2 normal with no audible murmur, regular rhythm. ABDOMEN: No hepatosplenomegaly, normal bowel sounds, no guarding or rigidity. SPINE: No scoliosis or deformity SKIN: No rashes CENTRAL NERVOUS SYSTEM: Expressive aphasia, no significant weakness noted. No focal deficits, tone is normal in all 4 extremities. EXTREMITIES: There is no peripheral edema. No clubbing, no cyanosis. Peripheral pulses are intact. - Labs CBC & Chem 7: 04/12/23 12:17 04/12/23 12:17 Labs: Abnormal Lab Results - Last 24 Hours (Table) 04/11/23 04/11/23 04/11/23 Range/Units 16:00 17:18 19:53 WBC (3.8-10.6) k/uL RBC (3.80-5.40) m/uL MCV (80.0-100.0) fL MCH (25.0-35.0) pg MCHC (31.0-37.0) g/dL RDW (11.5-15.5) % VBG pH (7.31-7.41) VBG pCO2 80 H* (37-51) mmHg VBG HCO3 45 H (24-28) mmol/L Chloride (98-107) mmol/L Carbon Dioxide (22-30) mmol/L BUN (7-17) mg/dL Glucose (74-99) mg/dL POC Glucose (mg/dL) 391 H 227 H (70-110) mg/dL Magnesium (1.6-2.3) mg/dL 04/12/23 04/12/23 04/12/23 Range/Units 06:18 11:41 12:17 WBC 19.2 H (3.8-10.6) k/uL RBC 5.51 H (3.80-5.40) m/uL MCV 76.1 L (80.0-100.0) fL MCH 21.1 L (25.0-35.0) pg MCHC 27.7 L (31.0-37.0) g/dL RDW 19.3 H (11.5-15.5) % VBG pH (7.31-7.41) VBG pCO2 (37-51) mmHg VBG HCO3 (24-28) mmol/L Chloride (98-107) mmol/L Carbon Dioxide (22-30) mmol/L BUN (7-17) mg/dL Glucose (74-99) mg/dL POC Glucose (mg/dL) 189 H 256 H (70-110) mg/dL Magnesium (1.6-2.3) mg/dL 04/12/23 04/12/23 Range/Units 12:17 12:17 WBC (3.8-10.6) k/uL RBC (3.80-5.40) m/uL MCV (80.0-100.0) fL MCH (25.0-35.0) pg MCHC (31.0-37.0) g/dL RDW (11.5-15.5) % VBG pH 7.45 H (7.31-7.41) VBG pCO2 64 H (37-51) mmHg VBG HCO3 43 H (24-28) mmol/L Chloride 88 L (98-107) mmol/L Carbon Dioxide 43 H* (22-30) mmol/L BUN 39 H (7-17) mg/dL Glucose 249 H (74-99) mg/dL POC Glucose (mg/dL) (70-110) mg/dL Magnesium 1.5 L (1.6-2.3) mg/dL Microbiology - Last 24 Hours (Table) 04/08/23 18:25 Blood Culture Gram Stain - Final Blood Blood Culture - Final Clostridium perfringens 04/08/23 18:28 Blood Culture - Preliminary Blood Assessment and Plan Assessment: Acute exacerbation of chronic obstructive pulmonary disease, no evidence of pneumonia. The patient is a chronic smoker and she is oxygen dependent. CT angiogram ruled out central pulmonary embolism. There is evidence of cardiomegaly. Mild pulmonary vascular congestion. Bilateral atelectasis. No focal lobar consolidation. Acute on chronic hypoxemic respiratory failure, currently on 5 L of O2 nasal cannula Altered mental status. Most likely this is related to the underlying hypoxemia and the patient was severely hypoxic prior to her hospital admission Bacteremia secondary to Clostridium perfringens, currently on cefepime Mild transaminitis of unclear etiology Chronic and ongoing tobacco dependence History of diabetes mellitus History of hyperlipidemia Hypertension Osteoarthritis. History of gout Plan: The patient was seen and evaluated Medications and labs reviewed Continue oxygen at 5 L/m per nasal cannula Significant de-saturations off oxygen Continue bronchodilators and steroids ID is on the case, currently on cefepime Computed tomography scan of the abdomen pending We will continue to follow I have personally seen and examined the patient, performed the documentation and the assessment and plan as written. Number of minutes spent on the visit: 10.
[2023-04-12] MEDS ORDERED: metroNIDAZOLE 500 MG TAB PO SCH (16:00)
--- NOTE | 2023-04-12 16:00 | CT ---
EXAMINATION TYPE: CT abdomen pelvis wo con DATE OF EXAM: 04/12/2023 COMPARISON: None HISTORY: bacteremia CT DLP: 1449.4 mGycm Examination of the solid and hollow viscera is limited given the lack of contrast. FINDINGS: LUNG BASES: Interstitial basilar prominence may reflect interstitial pneumonitis. Correlate clinicall y. LIVER/GB: The gallbladder is surgically absent. No space-occupying hepatic lesion. PANCREAS: No pancreatic mass identified. No inflammatory process seen. SPLEEN: No evidence for splenomegaly. No intrasplenic lesions seen. ADRENALS: Left adrenal nodule measuring 2.2 cm may reflect adenoma. The right adrenal gland is unrema rkable. No evidence for thickening. KIDNEYS: No evidence for renal mass. No nephrolithiasis. No hydronephrosis. BOWEL: Appendix has a normal appearance. No evidence of bowel obstruction. No inflammatory process. P oor distention of the stomach resulting in limited evaluation. Sigmoid diverticulosis without diverti culitis. Lymph nodes: No evidence for adenopathy greater than 1 cm. Abdominal aorta: Atheromatous changes seen. No evidence for aneurysm. Genital organs: No significant abnormality. Other: Severe degenerative disc disease throughout the lumbar spine. IMPRESSION: 1. No evidence for abscess, free air or inflammatory process to account for the patient's symptoms. 2. Correlate for basilar interstitial pneumonitis.
[2023-04-12 16:31] LABS: Glucose,Whole Blood 343 mg/dL (70-110)
[2023-04-12] MEDS ORDERED: CLINDAMYCIN 600 MG in DEXTROSE 5% IN WATER 50 ML IVPB SCH ×2 (18:00)
--- NOTE | 2023-04-12 20:02 | P.CONS ---
History of Present Illness - Reason for Consult Consult date: 04/12/23 - History of Present Illness Patient is a 62-year-old female with a past medical history significant for COPD presenting to the hospital 4 days ago for evaluation of increasing shortness of breath patient was noted to be hypoxic on arrival of the EMS patient was in to be lethargic and obtunded patient subsequently brought into the hospital and has been evaluated by pulmonary services on presentation to the hospital the patient was afebrile and did have some low-grade fever at points patient has been up her hypoxia requiring supplemental oxygen patient did have a normal white from admission however white count up to 19.2 today did have a normal creatinine levels as mildly elevated influenza RSV and COVID testing was negative patient did have a CT angiogram of the chest no PE and no focal consolidation patient has been treated with the cefepime and Zithromax the blood cultures obtained came back positive with anaerobic gram-positive cocci that has prompted this infectious disease consultation patient has been complaining of constipation and did have a hard bowel movement yesterday but denies having any blood or mucus in the stool and no urinary symptoms patient is breathing slightly comfortably she did have a mild cough not become any purulent sputum and no nausea no vomiting Past Medical History Past Medical History: COPD, Diabetes Mellitus, Eye Disorder, GERD/Reflux, Hyperlipidemia, Hypertension, Osteoarthritis (OA) Additional Past Medical History / Comment(s): glaucoma. "Knees have been giving out." DDD. gout, lower back and left hip pain History of Any Multi-Drug Resistant Organisms: None Reported Past Surgical History: Back Surgery, Section, Cholecystectomy, Tubal Ligation Additional Past Surgical History / Comment(s): MARBIN PLACED FOR SCOLIOSIS as child. mult left breast biopsy, Past Anesthesia/Blood Transfusion Reactions: No Reported Reaction Past Psychological History: No Psychological Hx Reported Additional Psychological History / Comment(s): . Smoking Status: Current every day smoker Past Alcohol Use History: None Reported Additional Past Alcohol Use History / Comment(s): Has been smoking since 14 yrs old, > 1 PPD. Past Drug Use History: None Reported Additional Drug Use History / Comment(s): . - Past Family History Brother(s) Family Medical History: Diabetes Mellitus Mother Family Medical History: Cancer Father Family Medical History: Cancer Medications and Allergies Home Medications Medication Instructions Recorded Confirmed Type Cyclobenzaprine [Flexeril] 10 mg PO HS 07/11/14 04/08/23 History Omeprazole [PriLOSEC] 20 mg PO DAILY 08/05/14 04/08/23 History Fenofibrate 160 mg PO DAILY 05/27/16 04/08/23 History allopurinoL [Allopurinol] 100 mg PO DAILY 05/27/16 04/08/23 History Glimepiride [Amaryl] 8 mg PO DAILY 06/28/17 04/08/23 History rOPINIRole HCL [Requip] 0.25 mg PO HS 06/02/18 04/08/23 History Atorvastatin [Lipitor] 80 mg PO HS 01/21/22 04/08/23 History Empagliflozin [Jardiance] 25 mg PO DAILY 01/21/22 04/08/23 History Ergocalciferol (Vitamin D2) 1,250 mcg PO MO 01/21/22 04/08/23 History [Drisdol (50,000 Iu)] Magnesium Oxide [Magox 400] 400 mg PO BID 01/21/22 04/08/23 History Pregabalin [Lyrica] 150 mg PO BID 01/21/22 04/08/23 History metFORMIN HCL [Glucophage] 1,000 mg PO BID 01/21/22 04/08/23 History Furosemide [Lasix] 40 mg PO DAILY 09/14/22 04/08/23 History HYDROcodone/APAP 5-325MG [[place] 1 tab PO Q6HR PRN 04/08/23 04/08/23 History 5-325] Potassium Chloride 10 meq PO DAILY 04/08/23 04/08/23 History Triamcinolone 0.1% Cream [Kenalog 1 applicatio TOPICAL BID 04/08/23 04/08/23 History 0.1% Cream] levETIRAcetam [Keppra] 1,500 mg PO BID 04/08/23 04/08/23 History Allergies Allergy/AdvReac Type Severity Reaction Status Date / Time codeine AdvReac Severe Abdominal Verified 09/14/22 15:39 Pain Physical Exam Vitals: Vital Signs Temp Pulse Pulse Resp BP Pulse Ox FiO2 04/12/23 11:18 98.4 F 98 18 136/81 90 L 04/12/23 09:37 92 04/12/23 09:28 88 04/12/23 08:00 98.8 F 101 H 20 145/78 94 L 04/12/23 04:00 98.5 F 80 18 129/79 95 04/12/23 02:00 20 04/11/23 23:36 98.4 F 84 20 117/69 94 L 04/11/23 21:18 90 04/11/23 21:09 111 H 40 04/11/23 20:00 98.2 F 79 18 130/87 100 40 04/11/23 17:19 92 04/11/23 17:09 92 04/11/23 16:55 40 04/11/23 16:45 40 04/11/23 16:00 98.3 F 97 18 110/54 97 04/11/23 12:00 86 18 120/64 97 Intake and Output 04/11/23 04/12/23 04/12/23 22:59 06:59 14:59 Intake Total 0 480 Output Total 1600 Balance -1600 480 Intake: Oral 0 480 Output: Urine 1600 Other: Voiding Method Diaper Diaper Incontinent Incontinent # Voids 0 2 1 # Bowel Movements 2 1 Weight 71.5 kg Results CBC & Chem 7: 04/12/23 12:17 04/12/23 12:17 Labs: Abnormal Lab Results - Last 24 Hours (Table) 04/11/23 04/11/23 04/11/23 Range/Units 12:08 12:10 16:00 VBG pCO2 80 H* (37-51) mmHg VBG HCO3 45 H (24-28) mmol/L POC Glucose (mg/dL) >600 H 375 H (70-110) mg/dL 04/11/23 04/11/23 04/12/23 Range/Units 17:18 19:53 06:18 VBG pCO2 (37-51) mmHg VBG HCO3 (24-28) mmol/L POC Glucose (mg/dL) 391 H 227 H 189 H (70-110) mg/dL Microbiology - Last 24 Hours (Table) 04/08/23 18:25 Blood Culture Gram Stain - Preliminary Blood Blood Culture - Preliminary Anaerobic Gm Positive Bacill 04/08/23 18:28 Blood Culture - Preliminary Blood Assessment and Plan Plan: 1patient with a anaerobic gram-positive bacteremia source is likely GI as the p atient did have a significant symptoms of constipation patient did have a presenting symptoms of shortness of breath however there was no evidence of any pneumonia on the initial CT and another gram-positive to be less likely the source of pneumonia. 2blood cultures will be repeated document clearance of bacteremia 3-we will obtain CT abdominal pelvis with oral contrast to rule out GI source of this bacteremia 4-antibiotics will be adjusted to Unasyn 3 g every 6 hours We will follow on clinical condition and cultures to further adjust medication if needed Thank you for this consultation we will follow the patient along with you Time with Patient: Greater than 30
[2023-04-12 20:27] LABS: Glucose,Whole Blood 352 mg/dL (70-110)
[2023-04-12] MEDS: ATORVASTATIN 80 MG TAB PO SCH (20:35)
[2023-04-12] MEDS: CYCLOBENZAPRINE 10 MG TAB PO SCH (20:35)
[2023-04-12] MEDS: HYDROcodone/APAP 5-325MG 1 EACH TAB PO PRN (20:35)
[2023-04-12] MEDS: AMPICILLIN-SULBACTAM 3 GM in SODIUM CHLORIDE 0.9% 100 ML IVPB SCH (20:40)
[2023-04-13] MEDS: methylPREDNISolone SOD SUCCI 40 MG/ML 1 ML VIAL IV SCH ×4 (00:28→17:28)
[2023-04-13] MEDS: FUROSEMIDE 40 MG TAB PO SCH ×3 (00:30→17:28)
[2023-04-13] MEDS: AMPICILLIN-SULBACTAM 3 GM in SODIUM CHLORIDE 0.9% 100 ML IVPB SCH ×4 (03:41→21:02)
[2023-04-13 06:29] LABS: Glucose,Whole Blood 302 mg/dL (70-110)
[2023-04-13] MEDS: PANTOPRAZOLE 40 MG TABLET PO SCH (06:33)
[2023-04-13] MEDS: INSULIN ASPART (NovoLOG) 100 UNIT/ML VIAL SQ SCH ×4 (06:33→21:01)
--- NOTE | 2023-04-13 07:25 | XR ---
EXAMINATION TYPE: XR chest 1V portable DATE OF EXAM: 04/13/2023 7:20 AM COMPARISON: Chest radiographs from 04-29, CTA chest 04-29 TECHNIQUE: XR chest 1V portable Portable AP radiograph of the chest. CLINICAL INDICATION:Female, 62 years old with history of COPD; FINDINGS: Lungs/Pleura: Blunting of the right costophrenic angle. No focal consolidation or pneumothorax. Pulmonary vascularity: Mild pulmonary vascular congestion. Heart/mediastinum: Cardiomediastinal silhouette is enlarged and stable. Musculoskeletal: No acute osseous pathology. Left-sided stabilization spinal levi redemonstrated. IMPRESSION: Similar cardiomegaly with pulmonary vascular congestion and small right pleural effusion.
[2023-04-13] MEDS: IPRATROPIUM-ALBUTEROL 3 ML NEB INHALATION SCH ×4 (09:31→20:55)
[2023-04-13] MEDS: FENOFIBRATE 160 MG TAB PO SCH (09:36)
[2023-04-13] MEDS: PREGABALIN 75 MG CAP PO SCH ×2 (09:36→21:01)
[2023-04-13] MEDS: ASPIRIN 325 MG TAB PO SCH (09:36)
[2023-04-13] MEDS: metFORMIN 500 MG TAB PO SCH ×2 (09:36→21:01)
[2023-04-13] MEDS: POTASSIUM CHLORIDE ER 10 MEQ TAB.ER.PRT PO SCH (09:36)
[2023-04-13] MEDS: MAGNESIUM OXIDE 400 MG TAB PO SCH ×2 (09:36→21:01)
[2023-04-13] MEDS: allopurinoL 100 MG TAB PO SCH (09:36)
[2023-04-13] MEDS: GLIMEPIRIDE 4 MG TAB PO SCH (09:39)
[2023-04-13] MEDS: DAPAGLIFLOZIN PROPANEDIOL 10 MG TABLET PO SCH (09:39)
[2023-04-13 11:36] LABS: Anisocytosis Slight; HCT 41.5 % (34.0-46.0); HGB 11.5 gm/dL (11.4-16.0); Hypochromasia Marked; MCHC 27.7 g/dL (31.0-37.0); Mean Platelet Volume 9.7; Microcytosis Moderate; Platelet Count 138 k/uL (150-450); Poikilocytosis Moderate; RBC 5.46 m/uL (3.80-5.40); RDW 19.2 % (11.5-15.5); WBC 14.7 k/uL (3.8-10.6)
[2023-04-13 11:53] LABS: Glucose,Whole Blood 350 mg/dL (70-110)
[2023-04-13 12:13] LABS: African American GFR (CKD) 83 (>60 ml/min/1.73 sqM); Blood Urea Nitrogen 51 mg/dL (7-17); Calcium 9.5 mg/dL (8.4-10.2); Chloride 86 mmol/L (98-107); Glucose 346 mg/dL (74-99); Non-African American GFR(CKD) 72 (>60 ml/min/1.73 sqM); Sodium 138 mmol/L (137-145)
[2023-04-13 12:20] LABS: Anion Gap 9 mmol/L
[2023-04-13 12:23] LABS: Carbon Dioxide 43 mmol/L (22-30)
--- NOTE | 2023-04-13 12:33 | P.PN ---
Subjective Progress Note Date: 04/13/23 62-year-old female patient, known history of COPD, maintain on home oxygen, comes into the hospital because of some altered mentation and shortness of breath 04/09/23 04/10/2023 shortness of breath is better, eager to go home, counseled WBC high due to steroids On 04/11: Patient was noted to be confused, venous blood gas obtained showed hypercapnia pCO2 of 80 BiPAP ordered pulmonary medicine aware 04/12: Patient intolerant to BiPAP, follow venous blood as ordered, blood cultures noted to be positive for gram-positive bacilli, infectious disease apprenticeship consultant CT abdomen and pelvis ordered 04/13> patient is alert and oriented 3, breathing has improved however blood cultures possible continue to monitor CT abdomen and pelvis were negative for abscess bilateral interstitial infiltrates noted in all lung marquez REVIEW OF SYSTEMS: Cough, shortness of breath, weakness improved, complaining of generalized weakness CONSTITUTIONAL: No fever, no malaise, no fatigue. HEENT: No recent visual problems or hearing problems. Denied any sore throat. CARDIOVASCULAR: No chest pain, orthopnea, PND, no palpitations, no syncope. PULMONARY: No shortness of breath, no cough, no hemoptysis. GASTROINTESTINAL: No diarrhea, no nausea, no vomiting, no abdominal pain. NEUROLOGICAL: No headaches, no weakness, no numbness. HEMATOLOGICAL: Denies any bleeding or petechiae. GENITOURINARY: Denies any burning micturition, frequency, or urgency. MUSCULOSKELETAL/RHEUMATOLOGICAL: Denies any joint pain, swelling, or any muscle pain. ENDOCRINE: Denies any polyuria or polydipsia. Objective - Vital Signs Vital signs: Vital Signs Temp 97.3 F L 04/13/23 09:35 Pulse 92 04/13/23 12:17 Resp 20 04/13/23 09:35 BP 132/72 04/13/23 09:35 Pulse Ox 95 04/13/23 09:35 FiO2 40 04/11/23 21:09 Intake & Output 04/12/23 04/13/23 04/13/23 18:59 06:59 18:59 Intake Total 710 568 Output Total 2150 Balance 710 -2150 568 Weight 71.5 kg 85.1 kg Intake: Oral 710 568 Output: Urine 2150 Other: Voiding Method Bedside Commode Bedside Commode Bedside Commode Incontinent Incontinent Incontinent # Voids 1 1 2 # Bowel Movements 1 1 1 - Exam General appearance: alert, ill , nasal canulla in place Head exam: Present: atraumatic, normocephalic, normal inspection Respiratory exam, decreased breath sounds, no use of accessory muscle Cardiovascular Exam: Present: regular rate, normal rhythm, normal heart sounds. Absent: systolic murmur, diastolic murmur, rubs, gallop, clicks GI/Abdominal exam: Present: soft, normal bowel sounds. Absent: distended, tenderness, guarding, rebound, rigid, bruit, pulsatile mass (Obese abdomen) Extremities exam: Present: normal inspection, full ROM, normal capillary refill. Absent: tenderness, pedal edema, joint swelling, calf tenderness Neurological exam: Present: alert, oriented X 2, confused and does not appear to be at baseline Skin exam: Present: Chronic healing lesion noted in left lower extremity - Labs CBC & Chem 7: 04/13/23 10:13 04/13/23 10:13 Labs: Abnormal Lab Results - Last 24 Hours (Table) 04/12/23 04/12/23 04/12/23 Range/Units 12:17 12:17 12:17 WBC 19.2 H (3.8-10.6) k/uL RBC 5.51 H (3.80-5.40) m/uL MCV 76.1 L (80.0-100.0) fL MCH 21.1 L (25.0-35.0) pg MCHC 27.7 L (31.0-37.0) g/dL RDW 19.3 H (11.5-15.5) % Plt Count (150-450) k/uL VBG pH 7.45 H (7.31-7.41) VBG pCO2 64 H (37-51) mmHg VBG HCO3 43 H (24-28) mmol/L Chloride 88 L (98-107) mmol/L Carbon Dioxide 43 H* (22-30) mmol/L BUN 39 H (7-17) mg/dL Glucose 249 H (74-99) mg/dL POC Glucose (mg/dL) (70-110) mg/dL Magnesium 1.5 L (1.6-2.3) mg/dL 04/12/23 04/12/23 04/13/23 Range/Units 16:29 20:09 06:25 WBC (3.8-10.6) k/uL RBC (3.80-5.40) m/uL MCV (80.0-100.0) fL MCH (25.0-35.0) pg MCHC (31.0-37.0) g/dL RDW (11.5-15.5) % Plt Count (150-450) k/uL VBG pH (7.31-7.41) VBG pCO2 (37-51) mmHg VBG HCO3 (24-28) mmol/L Chloride (98-107) mmol/L Carbon Dioxide (22-30) mmol/L BUN (7-17) mg/dL Glucose (74-99) mg/dL POC Glucose (mg/dL) 343 H 352 H 302 H (70-110) mg/dL Magnesium (1.6-2.3) mg/dL 04/13/23 04/13/23 04/13/23 Range/Units 10:13 10:13 11:51 WBC 14.7 H (3.8-10.6) k/uL RBC 5.46 H (3.80-5.40) m/uL MCV 76.0 L (80.0-100.0) fL MCH 21.0 L (25.0-35.0) pg MCHC 27.7 L (31.0-37.0) g/dL RDW 19.2 H (11.5-15.5) % Plt Count 138 L (150-450) k/uL VBG pH (7.31-7.41) VBG pCO2 (37-51) mmHg VBG HCO3 (24-28) mmol/L Chloride 86 L (98-107) mmol/L Carbon Dioxide 43 H* (22-30) mmol/L BUN 51 H (7-17) mg/dL Glucose 346 H (74-99) mg/dL POC Glucose (mg/dL) 350 H (70-110) mg/dL Magnesium (1.6-2.3) mg/dL Microbiology - Last 24 Hours (Table) 04/08/23 18:25 Blood Culture Gram Stain - Final Blood Blood Culture - Final Clostridium perfringens 04/08/23 18:28 Blood Culture - Preliminary Blood Assessment and Plan Assessment: Assessment and Plan * Acute COPD exacerbation, Tracheobronhitis * Acute on chronic hypoxemic hypercapnic respiratory failure baseline 2 L oxygen * Gram positive bacilli bacteremia>> Clostridium perfringens * Sepsis secondary to bacteremia * Acute Metabolic Encephalopathy * Chronic and ongoing tobacco dependence * History of diabetes mellitus * History of hyperlipidemia * Hypertension * Osteoarthritis. * History of gout * Seziure disorder In regards to COPD Continue Azithromycin Day 03/11 COMPLETED , continue patient on Solu-Medrol, pulmonary medicine following In regards to bacteremia cefepime transitioned to IV Unasyn day 3 (of Antibiotics), CT abdomen and pelvis negative for intra-abdominal source In regards to diabetes mellitus Continue Insulin Sliding scale, metformin In regards to history of hypertension continue aspirin, Lipitor, Lasix Regards to seizure disorder continue patient on Keppra Oxygen support Home meds reconciled
[2023-04-13 13:34] LABS: C Reactive Protein 1.1 mg/dL (<1.0)
--- NOTE | 2023-04-13 14:16 | P.PN ---
Subjective Progress Note Date: 04/13/23 Principal diagnosis: Bacteremia Patient is a 62-year-old female with a past medical history significant for COPD presenting to the hospital for evaluation of increasing s hortness of breath, CT of chest was negative for any pneumonia patient did have blood culture drawn on admission subsequently came back positive with Clostridium perfringens patient did have a CT of abdominal pelvis completed on 04/12/2023 did not show any abscess or colitis On today's evaluation that is 04/13/2023, the patient denies having any fever or any chills, the patient is breathing more comfortably denies any chest pain no worsening cough or sputum production no abdominal pain did have a bowel movement which was normal per the nursing staff Objective - Vital Signs Vital signs: Vital Signs Temp 97.3 F L 04/13/23 09:35 Pulse 92 04/13/23 12:17 Resp 20 04/13/23 09:35 BP 132/72 04/13/23 09:35 Pulse Ox 95 04/13/23 09:35 FiO2 40 04/11/23 21:09 Intake & Output 04/12/23 04/13/23 04/13/23 18:59 06:59 18:59 Intake Total 710 568 Output Total 2150 Balance 710 -2150 568 Weight 71.5 kg 85.1 kg Intake: Oral 710 568 Output: Urine 2150 Other: Voiding Method Bedside Commode Bedside Commode Bedside Commode Incontinent Incontinent Incontinent # Voids 1 1 2 # Bowel Movements 1 1 1 - Exam GENERAL DESCRIPTION: Middle-age female up in the chair in no distress RESPIRATORY SYSTEM: Unlabored breathing , coarse breath sounds bilaterally HEART: S1 S2 regular rate and rhythm , ABDOMEN: Soft , no tenderness EXTREMITIES: No edema feet - Labs CBC & Chem 7: 04/13/23 10:13 04/13/23 10:13 Labs: Abnormal Lab Results - Last 24 Hours (Table) 04/12/23 04/12/23 04/12/23 Range/Units 12:17 12:17 12:17 WBC 19.2 H (3.8-10.6) k/uL RBC 5.51 H (3.80-5.40) m/uL MCV 76.1 L (80.0-100.0) fL MCH 21.1 L (25.0-35.0) pg MCHC 27.7 L (31.0-37.0) g/dL RDW 19.3 H (11.5-15.5) % Plt Count (150-450) k/uL VBG pH 7.45 H (7.31-7.41) VBG pCO2 64 H (37-51) mmHg VBG HCO3 43 H (24-28) mmol/L Chloride 88 L (98-107) mmol/L Carbon Dioxide 43 H* (22-30) mmol/L BUN 39 H (7-17) mg/dL Glucose 249 H (74-99) mg/dL POC Glucose (mg/dL) (70-110) mg/dL Magnesium 1.5 L (1.6-2.3) mg/dL 04/12/23 04/12/23 04/13/23 Range/Units 16:29 20:09 06:25 WBC (3.8-10.6) k/uL RBC (3.80-5.40) m/uL MCV (80.0-100.0) fL MCH (25.0-35.0) pg MCHC (31.0-37.0) g/dL RDW (11.5-15.5) % Plt Count (150-450) k/uL VBG pH (7.31-7.41) VBG pCO2 (37-51) mmHg VBG HCO3 (24-28) mmol/L Chloride (98-107) mmol/L Carbon Dioxide (22-30) mmol/L BUN (7-17) mg/dL Glucose (74-99) mg/dL POC Glucose (mg/dL) 343 H 352 H 302 H (70-110) mg/dL Magnesium (1.6-2.3) mg/dL 04/13/23 04/13/23 04/13/23 Range/Units 10:13 10:13 11:51 WBC 14.7 H (3.8-10.6) k/uL RBC 5.46 H (3.80-5.40) m/uL MCV 76.0 L (80.0-100.0) fL MCH 21.0 L (25.0-35.0) pg MCHC 27.7 L (31.0-37.0) g/dL RDW 19.2 H (11.5-15.5) % Plt Count 138 L (150-450) k/uL VBG pH (7.31-7.41) VBG pCO2 (37-51) mmHg VBG HCO3 (24-28) mmol/L Chloride 86 L (98-107) mmol/L Carbon Dioxide 43 H* (22-30) mmol/L BUN 51 H (7-17) mg/dL Glucose 346 H (74-99) mg/dL POC Glucose (mg/dL) 350 H (70-110) mg/dL Magnesium (1.6-2.3) mg/dL Microbiology - Last 24 Hours (Table) 04/08/23 18:25 Blood Culture Gram Stain - Final Blood Blood Culture - Final Clostridium perfringens 04/08/23 18:28 Blood Culture - Preliminary Blood Assessment and Plan (1) Bacteremia Current Visit: Yes Status: Acute Code(s): R78.81 - BACTEREMIA SNOMED Code(s): 1642187 Plan: 1patient with Clostridium perfringens bacteremia source is likely GI as the patient did have a significant symptoms of constipation patient did have a presenting symptoms of shortness of breath however there was no evidence of any pneumonia on the initial CT and another gram-positive to be less likely the source of pneumonia. 2blood cultures has been repeated document clearance of bacteremia 3- CT abdominal pelvis with oral contrast did not show any acute abnormality 4Patient to continue with Unasyn 3 g every 6 hours, while waiting for repeat cultures to be finalize g Time with Patient: Less than 30
--- NOTE | 2023-04-13 15:30 | P.PN ---
Subjective Progress Note Date: 04/13/23 62-year-old female patient, known history of COPD, maintain on home oxygen, comes into the hospital because of some altered mentation and shortness of breath. The patient was apparently hypoxic with a pulse ox of 40% on room air oxygen and his symptoms the patient was quite lethargic and obtunded. Currently she is on 4 L and she is awake and alert and communicating. She has had similar hospital admissions where she presented hospital because of altered mentation. Neuro workup has been done. No evidence of any CVA. She was considered to have seizures although this has not been officially confirmed the patient admitted on [facility]. It is very much likely that her encephalopathy is related to hypoxemic events. during this current admission, the patient was given a CT angiogram that showed no evidence of any pulmonary embolism. No focal consolidation. There is some bibasilar atelectatic change and the rest of the blood work showed a WBC of 8.0 with a hemoglobin of 11. D-dimer is 0.69. Sodium level was at 142, bicarb is at 40, BUN is at 36 with a creatinine of 0.7. Influenza a and B and RSV and Covid 17-year-old negative. On today's evaluation of 04/10/2023,and the patient's shortness of breath. Patient is improving. I was told that she is having episodes of confusion. Nevertheless, at the time of my evaluation, the patient was appropriate. She is on bronchodilators and steroids. Her white cycles of 19.4 with a hemoglobin of 12 BUN is 35 with a creatinine of 0.7 and a sodium level is 143. The cultures are negative. The patient is seen today 04/11/2023 in follow-up on the selective care unit. She is currently sitting up in bed. Awake and alert. She is having issues with episodes of confusion still today. She had her oxygen off and her O2 saturations were in the 70s. On the back on 4 L nasal cannula with O2 saturation 92%. Preliminary blood culture positive for anaerobic gram-positive bacilli. Blood glucose 375. She is currently on azithromycin. The patient is seen today 04/12/2023 in follow-up on the selective care unit. She is currently resting comfortably in bed. Awake and alert in no acute distress. Still requiring 5 L high flow nasal cannula to maintain O2 saturations in the 90s. She is continued on cefepime. Blood cultures showing C lostridium perfringens. White count 19.2. Hemoglobin 11.6. Platelets 160. Sodium 140. Potassium 4.3. Bicarb 43. BUN 39. Creatinine 0.76. Glucose 249. Remains on DuoNeb inhalations, IV Solu-Medrol. Remains on oral diuretics. Currently in a -1.2 L balance. Computed tomography scan of the abdomen and pelvis pending. The patient is seen today 04/13/2023 in follow-up on the selective care unit. She is currently sitting up in a chair at the bedside. Awake and alert in no acute distress. Chest x-ray shows similar cardiomegaly with pulmonary vascular congestion and a small right pleural effusion. Computed tomography scan of the abdomen and pelvis revealed no evidence for abscess, free air or inflammatory process. Blood culture was positive for Clostridium perfringens. White count 14.7. Hemoglobin 11.5. Platelets 138. Sodium 138. Potassium 4.0. Bicarb 43. BUN 51. Creatinine 0.86. Glucose 346. She is currently on Unasyn. Remains on bronchodilators, IV Solu-Medrol, oral diuretics. Currently in a -1.4 L balance. Objective - Vital Signs Vital signs: Vital Signs Temp 97.3 F L 04/13/23 09:35 Pulse 106 H 04/13/23 12:30 Resp 18 04/13/23 12:30 BP 129/81 04/13/23 12:30 Pulse Ox 95 04/13/23 12:30 FiO2 40 04/11/23 21:09 Intake & Output 04/12/23 04/13/23 04/13/23 18:59 06:59 18:59 Intake Total 710 906 Output Total 2150 Balance 710 -2150 906 Weight 71.5 kg 85.1 kg Intake: Oral 710 906 Output: Urine 2150 Other: Voiding Method Bedside Commode Bedside Commode Bedside Commode Incontinent Incontinent Incontinent # Voids 1 1 2 # Bowel Movements 1 1 1 - Exam GENERAL EXAM: Alert, pleasant 62-year-old female, up in a chair, on 5 L nasal cannula, comfortable in no apparent distress. HEAD: Normocephalic. EYES: Normal reaction of pupils, equal size. NOSE: Clear with pink turbinates. THROAT: No erythema or exudates. NECK: No masses, no JVD. CHEST: No chest wall deformity. LUNGS: Equal air entry with faint crackles in the posterior bases. CVS: S1 and S2 normal with no audible murmur, regular rhythm. ABDOMEN: No hepatosplenomegaly, normal bowel sounds, no guarding or rigidity. SPINE: No scoliosis or deformity SKIN: No rashes CENTRAL NERVOUS SYSTEM: Expressive aphasia, no significant weakness noted. No focal deficits, tone is normal in all 4 extremities. EXTREMITIES: There is no peripheral edema. No clubbing, no cyanosis. Peripheral pulses are intact. - Labs CBC & Chem 7: 04/13/23 10:13 04/13/23 10:13 Labs: Abnormal Lab Results - Last 24 Hours (Table) 04/12/23 04/12/23 04/13/23 Range/Units 16:29 20:09 06:25 WBC (3.8-10.6) k/uL RBC (3.80-5.40) m/uL MCV (80.0-100.0) fL MCH (25.0-35.0) pg MCHC (31.0-37.0) g/dL RDW (11.5-15.5) % Plt Count (150-450) k/uL Chloride (98-107) mmol/L Carbon Dioxide (22-30) mmol/L BUN (7-17) mg/dL Glucose (74-99) mg/dL POC Glucose (mg/dL) 343 H 352 H 302 H (70-110) mg/dL C-Reactive Protein (<1.0) mg/dL 04/13/23 04/13/23 04/13/23 Range/Units 10:13 10:13 11:51 WBC 14.7 H (3.8-10.6) k/uL RBC 5.46 H (3.80-5.40) m/uL MCV 76.0 L (80.0-100.0) fL MCH 21.0 L (25.0-35.0) pg MCHC 27.7 L (31.0-37.0) g/dL RDW 19.2 H (11.5-15.5) % Plt Count 138 L (150-450) k/uL Chloride 86 L (98-107) mmol/L Carbon Dioxide 43 H* (22-30) mmol/L BUN 51 H (7-17) mg/dL Glucose 346 H (74-99) mg/dL POC Glucose (mg/dL) 350 H (70-110) mg/dL C-Reactive Protein 1.1 H (<1.0) mg/dL Microbiology - Last 24 Hours (Table) 04/08/23 18:25 Blood Culture Gram Stain - Final Blood Blood Culture - Final Clostridium perfringens 04/08/23 18:28 Blood Culture - Preliminary Blood Assessment and Plan Assessment: Acute exacerbation of chronic obstructive pulmonary disease, no evidence of pneumonia. The patient is a chronic smoker and she is oxygen dependent. CT angiogram ruled out central pulmonary embolism. There is evidence of cardiomegaly. Mild pulmonary vascular congestion. Bilateral atelectasis. No focal lobar consolidation. Acute on chronic hypoxemic respiratory failure, currently on 5 L of O2 nasal cannula Altered mental status. Most likely this is related to the underlying hypoxemia and the patient was severely hypoxic prior to her hospital admission Bacteremia secondary to Clostridium perfringens, currently on Unasyn Mild transaminitis of unclear etiology Chronic and ongoing tobacco dependence History of diabetes mellitus History of hyperlipidemia Hypertension Osteoarthritis. History of gout Plan: The patient was seen and evaluated CT scan of the abdomen, chest x-ray, medications and labs reviewed Continue oxygen at 5 L/m per nasal cannula Continue bronchodilators and steroids Currently on Unasyn We will continue to follow I have personally seen and examined the patient, performed the documentation and the assessment and plan as written. Number of minutes spent on the visit: 10.
[2023-04-13 16:29] LABS: Glucose,Whole Blood 348 mg/dL (70-110)
[2023-04-13 19:58] LABS: Glucose,Whole Blood 318 mg/dL (70-110)
[2023-04-13] MEDS: ATORVASTATIN 80 MG TAB PO SCH (21:02)
[2023-04-13] MEDS: CYCLOBENZAPRINE 10 MG TAB PO SCH (21:02)
[2023-04-13] MEDS: HYDROcodone/APAP 5-325MG 1 EACH TAB PO PRN (21:11)
[2023-04-14] MEDS: methylPREDNISolone SOD SUCCI 40 MG/ML 1 ML VIAL IV SCH ×3 (00:50→10:56)
[2023-04-14] MEDS: FUROSEMIDE 40 MG TAB PO SCH ×4 (00:50→23:29)
[2023-04-14] MEDS: AMPICILLIN-SULBACTAM 3 GM in SODIUM CHLORIDE 0.9% 100 ML IVPB SCH ×4 (03:14→21:07)
[2023-04-14 06:20] LABS: Glucose,Whole Blood 283 mg/dL (70-110)
[2023-04-14] MEDS: PANTOPRAZOLE 40 MG TABLET PO SCH (06:34)
[2023-04-14] MEDS: INSULIN ASPART (NovoLOG) 100 UNIT/ML VIAL SQ SCH ×4 (06:35→21:07)
[2023-04-14] MEDS: MAGNESIUM OXIDE 400 MG TAB PO SCH ×2 (09:10→21:07)
[2023-04-14] MEDS: ASPIRIN 325 MG TAB PO SCH (09:10)
[2023-04-14] MEDS: PREGABALIN 75 MG CAP PO SCH ×2 (09:11→21:07)
[2023-04-14] MEDS: metFORMIN 500 MG TAB PO SCH ×2 (09:11→21:07)
[2023-04-14] MEDS: FENOFIBRATE 160 MG TAB PO SCH (09:11)
[2023-04-14] MEDS: allopurinoL 100 MG TAB PO SCH (09:11)
[2023-04-14] MEDS: POTASSIUM CHLORIDE ER 10 MEQ TAB.ER.PRT PO SCH (09:11)
[2023-04-14] MEDS: DAPAGLIFLOZIN PROPANEDIOL 10 MG TABLET PO SCH (09:11)
[2023-04-14] MEDS: GLIMEPIRIDE 4 MG TAB PO SCH (09:11)
[2023-04-14] MEDS: IPRATROPIUM-ALBUTEROL 3 ML NEB INHALATION SCH ×4 (09:19→22:02)
[2023-04-14 11:01] LABS: Anisocytosis Slight; HCT 43.1 % (34.0-46.0); HGB 12.3 gm/dL (11.4-16.0); Hypochromasia Marked; MCH 21.6 pg (25.0-35.0); MCHC 28.4 g/dL (31.0-37.0); MCV 75.8 fL (80.0-100.0); Mean Platelet Volume 8.8; Microcytosis Moderate; Platelet Count 168 k/uL (150-450); Poikilocytosis Moderate; RBC 5.68 m/uL (3.80-5.40); RDW 19.4 % (11.5-15.5); WBC 11.3 k/uL (3.8-10.6)
[2023-04-14 11:50] LABS: African American GFR (CKD) >90 (>60 ml/min/1.73 sqM); Blood Urea Nitrogen 54 mg/dL (7-17); C Reactive Protein <0.5 mg/dL (<1.0); Calcium 9.5 mg/dL (8.4-10.2); Chloride 83 mmol/L (98-107); Glucose 318 mg/dL (74-99); Non-African American GFR(CKD) 78 (>60 ml/min/1.73 sqM); Sodium 140 mmol/L (137-145)
[2023-04-14 11:56] LABS: Anion Gap 18 mmol/L
[2023-04-14 11:57] LABS: Glucose,Whole Blood 304 mg/dL (70-110)
[2023-04-14 12:03] LABS: Carbon Dioxide 39 mmol/L (22-30)
--- NOTE | 2023-04-14 12:48 | P.PN ---
Subjective Progress Note Date: 04/14/23 62-year-old female patient, known history of COPD, maintain on home oxygen, comes into the hospital because of some altered mentation and shortness of breath 04/09/23 04/10/2023 shortness of breath is better, eager to go home, counseled WBC high due to steroids On 04/11: Patient was noted to be confused, venous blood gas obtained showed hypercapnia pCO2 of 80 BiPAP ordered pulmonary medicine aware 04/12: Patient intolerant to BiPAP, follow venous blood as ordered, blood cultures noted to be positive for gram-positive bacilli, infectious disease telecom sales consultant CT abdomen and pelvis ordered 04/13> patient is alert and oriented 3, breathing has improved however blood cultures possible continue to monitor CT abdomen and pelvis were negative for abscess bilateral interstitial infiltrates noted in all lung marquez 04/14>> patient seen and evaluated and bedside. Patient states her breathing has improved. Patient continued to remain on Unasyn, white cell count trending down, continue to remain on 5 L of Rivas REVIEW OF SYSTEMS: Cough, shortness of breath, weakness improved, complaining of generalized weakness>> improved CONSTITUTIONAL: No fever, no malaise, no fatigue. HEENT: No recent visual problems or hearing problems. Denied any sore throat. CARDIOVASCULAR: No chest pain, orthopnea, PND, no palpitations, no syncope. PULMONARY: no hemoptysis. GASTROINTESTINAL: No diarrhea, no nausea, no vomiting, no abdominal pain. NEUROLOGICAL: No headaches, no weakness, no numbness. HEMATOLOGICAL: Denies any bleeding or petechiae. GENITOURINARY: Denies any burning micturition, frequency, or urgency. MUSCULOSKELETAL/RHEUMATOLOGICAL: Denies any joint pain, swelling, or any muscle pain. ENDOCRINE: Denies any polyuria or polydipsia. Objective - Vital Signs Vital signs: Vital Signs Temp 98 F 04/14/23 11:41 Pulse 98 04/14/23 12:32 Resp 18 04/14/23 11:41 BP 125/78 04/14/23 11:41 Pulse Ox 97 04/14/23 11:41 FiO2 40 04/11/23 21:09 Intake & Output 04/13/23 04/14/23 04/14/23 18:59 06:59 18:59 Intake Total 2466 180 Output Total 500 Balance 2466 -500 180 Weight 85.9 kg Intake: Intake, IV Titration 100 Amount Ampicillin-Sulbactam 3 gm 100 In Sodium Chloride 0.9% 100 ml @ 200 mls/hr IVPB Q6H [facility] Rx#:[id number] Oral 2366 180 Output: Urine 500 Other: Voiding Method Bedside Commode Toilet Toilet Incontinent Bedside Commode # Voids 2 400 1 # Bowel Movements 1 1 - Exam General appearance: alert, ill , nasal canulla in place Head exam: Present: atraumatic, normocephalic, normal inspection Respiratory exam, decreased breath sounds, no use of accessory muscle Cardiovascular Exam: Present: regular rate, normal rhythm, normal heart sounds. Absent: systolic murmur, diastolic murmur, rubs, gallop, clicks GI/Abdominal exam: Present: soft, normal bowel sounds. Absent: distended, tenderness, guarding, rebound, rigid, bruit, pulsatile mass (Obese abdomen) Extremities exam: Present: normal inspection, full ROM, normal capillary refill. Absent: tenderness, pedal edema, joint swelling, calf tenderness Neurological exam: Present: alert, oriented X 2, confused and does not appear to be at baseline Skin exam: Present: Chronic healing lesion noted in left lower extremity - Labs CBC & Chem 7: 04/14/23 10:13 04/14/23 10:13 Labs: Abnormal Lab Results - Last 24 Hours (Table) 04/13/23 04/13/23 04/13/23 Range/Units 10:13 10:13 16:25 WBC (3.8-10.6) k/uL RBC (3.80-5.40) m/uL MCV (80.0-100.0) fL MCH (25.0-35.0) pg MCHC (31.0-37.0) g/dL RDW (11.5-15.5) % Chloride (98-107) mmol/L Carbon Dioxide (22-30) mmol/L BUN (7-17) mg/dL Glucose (74-99) mg/dL POC Glucose (mg/dL) 348 H (70-110) mg/dL C-Reactive Protein 1.1 H (<1.0) mg/dL Procalcitonin 0.10 H (0.02-0.09) ng/mL 04/13/23 04/14/23 04/14/23 Range/Units 19:56 06:14 10:13 WBC 11.3 H (3.8-10.6) k/uL RBC 5.68 H (3.80-5.40) m/uL MCV 75.8 L (80.0-100.0) fL MCH 21.6 L (25.0-35.0) pg MCHC 28.4 L (31.0-37.0) g/dL RDW 19.4 H (11.5-15.5) % Chloride (98-107) mmol/L Carbon Dioxide (22-30) mmol/L BUN (7-17) mg/dL Glucose (74-99) mg/dL POC Glucose (mg/dL) 318 H 283 H (70-110) mg/dL C-Reactive Protein (<1.0) mg/dL Procalcitonin (0.02-0.09) ng/mL 04/14/23 04/14/23 Range/Units 10:13 11:56 WBC (3.8-10.6) k/uL RBC (3.80-5.40) m/uL MCV (80.0-100.0) fL MCH (25.0-35.0) pg MCHC (31.0-37.0) g/dL RDW (11.5-15.5) % Chloride 83 L (98-107) mmol/L Carbon Dioxide 39 H (22-30) mmol/L BUN 54 H (7-17) mg/dL Glucose 318 H (74-99) mg/dL POC Glucose (mg/dL) 304 H (70-110) mg/dL C-Reactive Protein (<1.0) mg/dL Procalcitonin (0.02-0.09) ng/mL Assessment and Plan Assessment: Assessment and Plan * Acute COPD exacerbation, Tracheobronhitis * Acute on chronic hypoxemic hypercapnic respiratory failure baseline 2 L oxygen * Gram positive bacilli bacteremia>> Clostridium perfringens * Sepsis secondary to bacteremia * Acute Metabolic Encephalopathy * Chronic and ongoing tobacco dependence * History of diabetes mellitus * History of hyperlipidemia * Hypertension * Osteoarthritis. * History of gout * Seziure disorder In regards to COPD Continue Azithromycin Day 03/11 COMPLETED , continue patient on Solu-Medrol>> weaned to daily on 04/14 >> pulmonary medicine following In regards to bacteremia cefepime transitioned to IV Unasyn day 4 (of Antib iotics), CT abdomen and pelvis negative for intra-abdominal source In regards to diabetes mellitus Continue Insulin Sliding scale, metformin, glyburide In regards to history of hypertension continue aspirin, Lipitor, Lasix Regards to seizure disorder continue patient on Keppra Oxygen support Home meds reconciled
--- NOTE | 2023-04-14 13:21 | P.PN ---
Subjective Progress Note Date: 04/14/23 Principal diagnosis: Acute exacerbation of COPD with acute on chronic hypoxic respiratory failure 62-year-old female patient, known history of COPD, maintain on home oxygen, comes into the hospital because of some altered mentation and shortness of breath. The patient was apparently hypoxic with a pulse ox of 40% on room air oxygen and his symptoms the patient was quite lethargic and obtunded. Currently she is on 4 L and she is awake and alert and communicating. She has had similar hospital admissions where she presented hospital because of altered mentation. Neuro workup has been done. No evidence of any CVA. She was considered to have seizures although this has not been officially confirmed the patient admitted on [facility]. It is very much likely that her encephalopathy is related to hypoxemic events. during this current admission, the patient was given a CT angiogram that showed no evidence of any pulmonary embolism. No focal consolidation. There is some bibasilar atelectatic change and the rest of the blood work showed a WBC of 8.0 with a hemoglobin of 11. D-dimer is 0.69. Sodium level was at 142, bicarb is at 40, BUN is at 36 with a creatinine of 0.7. Influenza a and B and RSV and Covid 17-year-old negative. On today's evaluation of 04/10/2023,and the patient's shortness of breath. Patient is improving. I was told that she is having episodes of confusion. Nevertheless, at the time of my evaluation, the patient was appropriate. She is on bronchodilators and steroids. Her white cycles of 19.4 with a hemoglobin of 12 BUN is 35 with a creatinine of 0.7 and a sodium level is 143. The cultures are negative. The patient is seen today 04/11/2023 in follow-up on the selective care unit. She is currently sitting up in bed. Awake and alert. She is having issues with episodes of confusion still today. She had her oxygen off and her O2 saturations were in the 70s. On the back on 4 L nasal cannula with O2 saturation 92%. Preliminary blood culture positive for anaerobic gram-positive bacilli. Blood glucose 375. She is currently on azithromycin. The patient is seen today 04/12/2023 in follow-up on the selective care unit. She is currently resting comfortably in bed. Awake and alert in no acute distress. Still requiring 5 L high flow nasal cannula to maintain O2 saturations in the 90s. She is continued on cefepime. Blood cultures showing Clostridium perfringens. White count 19.2. Hemoglobin 11.6. Platelets 160. Sodium 140. Potassium 4.3. Bicarb 43. BUN 39. Creatinine 0.76. Glucose 249. Remains on DuoNeb inhalations, IV Solu-Medrol. Remains on oral diuretics. Currently in a -1.2 L balance. Computed tomography scan of the abdomen and pelvis pending. The patient is seen today 04/13/2023 in follow-up on the selective care unit. She is currently sitting up in a chair at the bedside. Awake and alert in no acute distress. Chest x-ray shows similar cardiomegaly with pulmonary vascular congestion and a small right pleural effusion. Computed tomography scan of the abdomen and pelvis revealed no evidence for abscess, free air or inflammatory process. Blood culture was positive for Clostridium perfringens. White count 14.7. Hemoglobin 11.5. Platelets 138. Sodium 138. Potassium 4.0. Bicarb 43. BUN 51. Creatinine 0.86. Glucose 346. She is currently on Unasyn. Remains on bronchodilators, IV Solu-Medrol, oral diuretics. Currently in a -1.4 L balance. Reevaluated today on 04/14/2023, patient is feeling better today, breathing easier, her COPD status is improving. Nonetheless the patient is being seen by infectious disease for her bacteremia and possible cultures showing Clostridium perfringens Again this is a GI source, patient is on Unasyn, and apparently she had some follow-up blood cultures which are pending, clinically the patient is doing well, and clinically does not seem to be septic. She count is 11.3 hemoglobin 12.3 left lites are normal renal profile is normal bicarb is 39. Obviously patient has chronic hypercapnic respiratory failure with a bicarb of 39 compensating for her chronic respiratory acidosis./Hypercapnia Objective - Vital Signs Vital signs: Vital Signs Temp 98 F 04/14/23 11:41 Pulse 98 04/14/23 12:32 Resp 18 04/14/23 11:41 BP 125/78 04/14/23 11:41 Pulse Ox 97 04/14/23 11:41 FiO2 40 04/11/23 21:09 Intake & Output 04/13/23 04/14/23 04/14/23 18:59 06:59 18:59 Intake Total 2466 180 Output Total 500 Balance 2466 -500 180 Weight 85.9 kg Intake: Intake, IV Titration 100 Amount Ampicillin-Sulbactam 3 gm 100 In Sodium Chloride 0.9% 100 ml @ 200 mls/hr IVPB Q6H [facility] Rx#:[id number] Oral 2366 180 Output: Urine 500 Other: Voiding Method Bedside Commode Toilet Toilet Incontinent Bedside Commode # Voids 2 400 1 # Bowel Movements 1 1 - Exam Physical Exam: Revealed a 62-year-old female in no distress, on room air. Head: Atraumatic normocephalic. HEENT:[Neck is supple.] [No neck masses.] [No thyromegaly.] [No JVD.] Chest: [Diminished breath sounds at the bases minimal rhonchi on forced expiratory maneuver only. Cardiac Exam: [Normal S1 and S2, no S3 gallop, no murmur.] Abdomen: [Soft, nontender, no megaly, no rebound, no guarding, normal bowel sounds.] Extremities: [No clubbing, no edema, no cyanosis.] Neurological Exam: No gross focal neurologic deficit alert oriented 3. Psychiatric: Normal mood affect and normal mental status examination. Skin: No rashes - Labs CBC & Chem 7: 04/14/23 10:13 04/14/23 10:13 Labs: Abnormal Lab Results - Last 24 Hours (Table) 04/13/23 04/13/23 04/13/23 Range/Units 10:13 10:13 16:25 WBC (3.8-10.6) k/uL RBC (3.80-5.40) m/uL MCV (80.0-100.0) fL MCH (25.0-35.0) pg MCHC (31.0-37.0) g/dL RDW (11.5-15.5) % Chloride (98-107) mmol/L Carbon Dioxide (22-30) mmol/L BUN (7-17) mg/dL Glucose (74-99) mg/dL POC Glucose (mg/dL) 348 H (70-110) mg/dL C-Reactive Protein 1.1 H (<1.0) mg/dL Procalcitonin 0.10 H (0.02-0.09) ng/mL 04/13/23 04/14/23 04/14/23 Range/Units 19:56 06:14 10:13 WBC 11.3 H (3.8-10.6) k/uL RBC 5.68 H (3.80-5.40) m/uL MCV 75.8 L (80.0-100.0) fL MCH 21.6 L (25.0-35.0) pg MCHC 28.4 L (31.0-37.0) g/dL RDW 19.4 H (11.5-15.5) % Chloride (98-107) mmol/L Carbon Dioxide (22-30) mmol/L BUN (7-17) mg/dL Glucose (74-99) mg/dL POC Glucose (mg/dL) 318 H 283 H (70-110) mg/dL C-Reactive Protein (<1.0) mg/dL Procalcitonin (0.02-0.09) ng/mL 04/14/23 04/14/23 Range/Units 10:13 11:56 WBC (3.8-10.6) k/uL RBC (3.80-5.40) m/uL MCV (80.0-100.0) fL MCH (25.0-35.0) pg MCHC (31.0-37.0) g/dL RDW (11.5-15.5) % Chloride 83 L (98-107) mmol/L Carbon Dioxide 39 H (22-30) mmol/L BUN 54 H (7-17) mg/dL Glucose 318 H (74-99) mg/dL POC Glucose (mg/dL) 304 H (70-110) mg/dL C-Reactive Protein (<1.0) mg/dL Procalcitonin (0.02-0.09) ng/mL Microbiology - Last 24 Hours (Table) 04/08/23 18:28 Blood Culture - Final Blood Assessment and Plan Assessment: Impression: Acute exacerbation of chronic obstructive pulmonary disease, no evidence of p neumonia. The patient is a chronic smoker and she is oxygen dependent. CT angiogram ruled out central pulmonary embolism. There is evidence of cardiomegaly. Mild pulmonary vascular congestion. Bilateral atelectasis. No focal lobar consolidation. Acute on chronic hypoxemic respiratory failure Altered mental status. Most likely this is related to the underlying hypoxemia and the patient was severely hypoxic prior to her hospital admission Bacteremia secondary to Clostridium perfringens, currently on Unasyn Mild transaminitis of unclear etiology Chronic and ongoing tobacco dependence History of diabetes mellitus History of hyperlipidemia Hypertension Osteoarthritis. History of gout Recommendation: Continue present course of treatment including bronchial dilators and steroids Continue Unasyn Continue oxygen and titrate accordingly CT of the abdomen and pelvis is nondiagnostic Make sure blood cultures are negative again. We'll clear for discharge once the patient is cleared by infectious disease. In the meantime we'll continue to follow Time with Patient: Less than 30
[2023-04-14 14:41] VITALS: BMI 32.5
[2023-04-14 16:28] LABS: Glucose,Whole Blood 493 mg/dL (70-110)
[2023-04-14] MEDS: HYDROcodone/APAP 5-325MG 1 EACH TAB PO PRN (16:44)
[2023-04-14 20:17] LABS: Glucose,Whole Blood 391 mg/dL (70-110)
[2023-04-14] MEDS: CYCLOBENZAPRINE 10 MG TAB PO SCH (21:07)
[2023-04-14] MEDS: ATORVASTATIN 80 MG TAB PO SCH (21:07)
--- NOTE | 2023-04-14 22:10 | P.PN ---
Subjective Progress Note Date: 04/14/23 Principal diagnosis: Bacteremia Patient is a 62-year-old female with a past medical history significant for COPD presenting to the hospital for evaluation of increasing s hortness of breath, CT of chest was negative for any pneumonia patient did have blood culture drawn on admission subsequently came back positive with Clostridium perfringens patient did have a CT of abdominal pelvis completed on 04/12/2023 did not show any abscess or colitis On today's evaluation that is 04/14/2023, the patient remains to be afebrile, the patient is breathing comfortably on 5 L nasal cannula oxygen, the patient denies any chest pain no worsening cough or sputum production no abdominal pain and no diarrhea Objective - Vital Signs Vital signs: Vital Signs Temp 98 F 04/14/23 11:41 Pulse 98 04/14/23 12:32 Resp 18 04/14/23 11:41 BP 125/78 04/14/23 11:41 Pulse Ox 97 04/14/23 11:41 FiO2 40 04/11/23 21:09 Intake & Output 04/13/23 04/14/23 04/14/23 18:59 06:59 18:59 Intake Total 2466 180 Output Total 500 Balance 2466 -500 180 Weight 85.9 kg Intake: Intake, IV Titration 100 Amount Ampicillin-Sulbactam 3 gm 100 In Sodium Chloride 0.9% 100 ml @ 200 mls/hr IVPB Q6H [facility] Rx#:[id number] Oral 2366 180 Output: Urine 500 Other: Voiding Method Bedside Commode Toilet Toilet Incontinent Bedside Commode # Voids 2 400 1 # Bowel Movements 1 1 - Exam GENERAL DESCRIPTION: Middle-age female up in the chair in no distress RESPIRATORY SYSTEM: Unlabored breathing , coarse breath sounds bilaterally HEART: S1 S2 regular rate and rhythm , ABDOMEN: Soft , no tenderness EXTREMITIES: No edema feet - Labs CBC & Chem 7: 04/14/23 10:13 04/14/23 10:13 Labs: Abnormal Lab Results - Last 24 Hours (Table) 04/13/23 04/13/23 04/13/23 Range/Units 10:13 10:13 16:25 WBC (3.8-10.6) k/uL RBC (3.80-5.40) m/uL MCV (80.0-100.0) fL MCH (25.0-35.0) pg MCHC (31.0-37.0) g/dL RDW (11.5-15.5) % Chloride (98-107) mmol/L Carbon Dioxide (22-30) mmol/L BUN (7-17) mg/dL Glucose (74-99) mg/dL POC Glucose (mg/dL) 348 H (70-110) mg/dL C-Reactive Protein 1.1 H (<1.0) mg/dL Procalcitonin 0.10 H (0.02-0.09) ng/mL 04/13/23 04/14/23 04/14/23 Range/Units 19:56 06:14 10:13 WBC 11.3 H (3.8-10.6) k/uL RBC 5.68 H (3.80-5.40) m/uL MCV 75.8 L (80.0-100.0) fL MCH 21.6 L (25.0-35.0) pg MCHC 28.4 L (31.0-37.0) g/dL RDW 19.4 H (11.5-15.5) % Chloride (98-107) mmol/L Carbon Dioxide (22-30) mmol/L BUN (7-17) mg/dL Glucose (74-99) mg/dL POC Glucose (mg/dL) 318 H 283 H (70-110) mg/dL C-Reactive Protein (<1.0) mg/dL Procalcitonin (0.02-0.09) ng/mL 04/14/23 04/14/23 Range/Units 10:13 11:56 WBC (3.8-10.6) k/uL RBC (3.80-5.40) m/uL MCV (80.0-100.0) fL MCH (25.0-35.0) pg MCHC (31.0-37.0) g/dL RDW (11.5-15.5) % Chloride 83 L (98-107) mmol/L Carbon Dioxide 39 H (22-30) mmol/L BUN 54 H (7-17) mg/dL Glucose 318 H (74-99) mg/dL POC Glucose (mg/dL) 304 H (70-110) mg/dL C-Reactive Protein (<1.0) mg/dL Procalcitonin (0.02-0.09) ng/mL Assessment and Plan (1) Bacteremia Current Visit: Yes Status: Acute Code(s): R78.81 - BACTEREMIA SNOMED Code(s): 0415152 Plan: 1patient with Clostridium perfringens bacteremia source is likely GI as the patient did have a significant symptoms of constipation patient did have a presenting symptoms of shortness of breath however there was no evidence of any pneumonia on the initial CT and another gram-positive to be less likely the s ource of pneumonia. 2blood cultures has been repeated document clearance of bacteremia, which are c urrently pending 3- CT abdominal pelvis with oral contrast did not show any acute abnormality 4Patient seemed to have some Improvement and will continue with Unasyn 3 g every 6 hours, with a plan to finish therapy with oral Augmentin discussed with the admitting team Time with Patient: Less than 30
[2023-04-15] MEDS: AMPICILLIN-SULBACTAM 3 GM in SODIUM CHLORIDE 0.9% 100 ML IVPB SCH ×4 (03:55→23:11)
[2023-04-15 06:15] LABS: Glucose,Whole Blood 131 mg/dL (70-110)
[2023-04-15] MEDS: INSULIN ASPART (NovoLOG) 100 UNIT/ML VIAL SQ SCH ×7 (06:26→20:54)
[2023-04-15] MEDS: PANTOPRAZOLE 40 MG TABLET PO SCH (06:27)
[2023-04-15] MEDS: MAGNESIUM OXIDE 400 MG TAB PO SCH ×2 (08:12→20:53)
[2023-04-15] MEDS: ASPIRIN 325 MG TAB PO SCH (08:12)
[2023-04-15] MEDS: PREGABALIN 75 MG CAP PO SCH ×2 (08:12→20:53)
[2023-04-15] MEDS: NICOTINE 21MG/24HR PATCH TRANSDERM SCH (08:12)
[2023-04-15] MEDS: POTASSIUM CHLORIDE ER 10 MEQ TAB.ER.PRT PO SCH (08:12)
[2023-04-15] MEDS: FUROSEMIDE 40 MG TAB PO SCH ×3 (08:12→23:12)
[2023-04-15] MEDS: methylPREDNISolone SOD SUCCI 40 MG/ML 1 ML VIAL IV SCH (08:12)
[2023-04-15] MEDS: GLIMEPIRIDE 4 MG TAB PO SCH (08:12)
[2023-04-15] MEDS: allopurinoL 100 MG TAB PO SCH (08:12)
[2023-04-15] MEDS: FENOFIBRATE 160 MG TAB PO SCH (08:12)
[2023-04-15] MEDS: metFORMIN 500 MG TAB PO SCH ×2 (08:12→20:52)
[2023-04-15] MEDS: DAPAGLIFLOZIN PROPANEDIOL 10 MG TABLET PO SCH (08:12)
[2023-04-15] MEDS: HYDROcodone/APAP 5-325MG 1 EACH TAB PO PRN ×3 (08:18→23:11)
[2023-04-15] MEDS: IPRATROPIUM-ALBUTEROL 3 ML NEB INHALATION SCH ×4 (08:50→21:26)
[2023-04-15] MEDS: METOPROLOL TARTRATE 12.5 MG TAB PO SCH ×2 (09:07→20:53)
[2023-04-15 09:33] LABS: African American GFR (CKD) 61 (>60 ml/min/1.73 sqM); Blood Urea Nitrogen 60 mg/dL (7-17); C Reactive Protein <0.5 mg/dL (<1.0); Calcium 9.6 mg/dL (8.4-10.2); Chloride 84 mmol/L (98-107); Glucose 125 mg/dL (74-99); Non-African American GFR(CKD) 53 (>60 ml/min/1.73 sqM); Potassium 3.8 mmol/L (3.5-5.1); Sodium 140 mmol/L (137-145)
[2023-04-15 09:39] LABS: Anion Gap 10 mmol/L
[2023-04-15 09:41] LABS: Carbon Dioxide 46 mmol/L (22-30)
[2023-04-15 09:48] LABS: Anisocytosis Slight; HCT 41.1 % (34.0-46.0); HGB 12.3 gm/dL (11.4-16.0); Hypochromasia Marked; MCH 22.4 pg (25.0-35.0); MCV 74.7 fL (80.0-100.0); Mean Platelet Volume 11.6; Microcytosis Moderate; Platelet Count 174 k/uL (150-450); Poikilocytosis Moderate; RDW 19.4 % (11.5-15.5); WBC 15.6 k/uL (3.8-10.6)
[2023-04-15 12:00] LABS: Glucose,Whole Blood 455 mg/dL (70-110)
[2023-04-15] MEDS ORDERED: DEXTROSE 50% SYRINGE 50 ML IVP PRN ×2 (12:37)
--- NOTE | 2023-04-15 12:41 | P.PN ---
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 Patient states her breathing has improved. Patient continued to remain on Unasyn, white cell count trending down, continue to remain on 5 L of Oxygen 04/15>> patient states breathing has improved however continue to remain on 5 L at baseline patient weighs 2 L of oxygen. Noted to have significant hyperglycemia most recent HbA1c in September 2022 was 7.3, continue oral hypoglycemic started on Lantus and NovoLog while inpatient is receiving steroids. Continue to monitor blood glucose levels as well continue on IV antibiotic potential discharge in next 48-72 hour REVIEW OF SYSTEMS: Cough, shortness of breath, weakness improved, complaining of generalized weakness>> improved CONSTITUTIONAL: No fever, no malaise, no fatigue. HEENT: No recent visual problems or hearing problems. Denied any sore throat. CARDIOVASCULAR: No chest pain, orthopnea, PND, no palpitations, no syncope. PULMONARY: no hemoptysis. GASTROINTESTINAL: No diarrhea, no nausea, no vomiting, no abdominal pain. NEUROLOGICAL: No headaches, no weakness, no numbness. HEMATOLOGICAL: Denies any bleeding or petechiae. GENITOURINARY: Denies any burning micturition, frequency, or urgency. MUSCULOSKELETAL/RHEUMATOLOGICAL: Denies any joint pain, swelling, or any muscle pain. ENDOCRINE: Denies any polyuria or polydipsia. Objective - Vital Signs Vital signs: Vital Signs Temp 98.5 F 04/15/23 11:39 Pulse 100 04/15/23 12:01 Resp 18 04/15/23 11:39 BP 119/76 04/15/23 11:39 Pulse Ox 93 L 04/15/23 11:39 FiO2 40 04/11/23 21:09 Intake & Output 04/14/23 04/15/23 04/15/23 18:59 06:59 18:59 Intake Total 540 240 Balance 540 240 Weight 85.9 kg 85 kg Intake: Oral 540 240 Other: Voiding Method Toilet Toilet Toilet # Voids 1 3 1 # Bowel Movements 1 - Exam General appearance: alert, ill , nasal canulla in place Head exam: Present: atraumatic, normocephalic, normal inspection Respiratory exam, decreased breath sounds, no use of accessory muscle Cardiovascular Exam: Present: regular rate, normal rhythm, normal heart sounds. Absent: systolic murmur, diastolic murmur, rubs, gallop, clicks GI/Abdominal exam: Present: soft, normal bowel sounds. Absent: distended, tenderness, guarding, rebound, rigid, bruit, pulsatile mass (Obese abdomen) Extremities exam: Present: normal inspection, full ROM, normal capillary refill. Absent: tenderness, pedal edema, joint swelling, calf tenderness Neurological exam: Present: alert, oriented X 2, confused and does not appear to be at baseline Skin exam: Present: Chronic healing lesion noted in left lower extremity - Labs CBC & Chem 7: 04/15/23 07:58 04/15/23 07:58 Labs: Abnormal Lab Results - Last 24 Hours (Table) 04/14/23 04/14/23 04/15/23 Range/Units 16:25 20:16 06:13 WBC (3.8-10.6) k/uL RBC (3.80-5.40) m/uL MCV (80.0-100.0) fL MCH (25.0-35.0) pg MCHC (31.0-37.0) g/dL RDW (11.5-15.5) % Chloride (98-107) mmol/L Carbon Dioxide (22-30) mmol/L BUN (7-17) mg/dL Creatinine (0.52-1.04) mg/dL Glucose (74-99) mg/dL POC Glucose (mg/dL) 493 H 391 H 131 H (70-110) mg/dL 04/15/23 04/15/23 04/15/23 Range/Units 07:58 07:58 11:58 WBC 15.6 H (3.8-10.6) k/uL RBC 5.50 H (3.80-5.40) m/uL MCV 74.7 L (80.0-100.0) fL MCH 22.4 L (25.0-35.0) pg MCHC 30.0 L (31.0-37.0) g/dL RDW 19.4 H (11.5-15.5) % Chloride 84 L (98-107) mmol/L Carbon Dioxide 46 H* (22-30) mmol/L BUN 60 H (7-17) mg/dL Creatinine 1.10 H (0.52-1.04) mg/dL Glucose 125 H (74-99) mg/dL POC Glucose (mg/dL) 455 H (70-110) mg/dL Microbiology - Last 24 Hours (Table) 04/13/23 10:13 Blood Culture - Preliminary Blood 04/08/23 18:28 Blood Culture - Final Blood Assessment and Plan Assessment: Assessment and Plan * Acute COPD exacerbation, Tracheobronhitis * Acute on chronic hypoxemic hypercapnic respiratory failure baseline 2 L oxygen * Gram positive bacilli bacteremia>> Clostridium perfringens * Sepsis secondary to bacteremia * Acute Metabolic Encephalopathy * Chronic and ongoing tobacco dependence * History of diabetes mellitus2 * History of hyperlipidemia * Hypertension * Osteoarthritis. * History of gout * Seziure disorder * In regards to COPD Continue Azithromycin Day 03/11 COMPLETED , continue patient on Solu-Medrol>> weaned to daily on 04/14 >> pulmonary medicine following * In regards to bacteremia cefepime transitioned to IV Unasyn day 5 (of Antibiotics), CT abdomen and pelvis negative for acute for intra-abdominal source, however per ID likely source is abdomen repeat blood cultures 04/13 no Growth , blood cultures collected 04/08 were positive>> upon discharge transition to Augmentin * In regards to diabetes mellitus Continue Insulin Sliding scale, metformin, glyburide>> steroid-induced hyperglycemia hence started on Lantus and mealtime NovoLog * In regards to history of hypertension continue aspirin, Lipitor, Lasix * Regards to seizure disorder continue patient on Keppra * Oxygen support >> will need dressing walking pulse ox meter prior to discharge * Home meds reconciled Time with Patient: Greater than 30
[2023-04-15] MEDS: INSULIN DETEMIR (LEVEMIR) 100 UNIT/ML SYR SQ SCH ×2 (13:02→20:52)
--- NOTE | 2023-04-15 15:39 | XR ---
EXAMINATION TYPE: XR chest 1V portable DATE OF EXAM: 04/15/2023 Comparison: 04/13/2023 Clinical History: 62 year-old female respiratory failure Findings: Dextroconvex curvature lower thoracic spine. Vertical stabilization rods extending from the midthorac ic spine down to the upper lumbar spine beyond the [id number]. Heart mildly enlarged. Interstitial prominence. Ectatic/tortuous thoracic aorta redemonstrated. No consolidation or sizable pleural effu zee. Lung volumes are slightly more diminished. Impression: Some hypoventilatory changes. Similar mild cardiomegaly. Correlate for CHF with pulmonary vascular co ngestion, overall similar to prior.
--- NOTE | 2023-04-15 16:00 | P.PN ---
Subjective Progress Note Date: 04/15/23 Principal diagnosis: Bacteremia Patient is a 62-year-old female with a past medical history significant for COPD presenting to the hospital for evaluation of increasing s hortness of breath, CT of chest was negative for any pneumonia patient did have blood culture drawn on admission subsequently came back positive with Clostridium perfringens patient did have a CT of abdominal pelvis completed on 04/12/2023 did not show any abscess or colitis On today's evaluation that is 04/15/2023, the patient continues to be afebrile, the patient is breathing comfortably on 5 L nasal cannula oxygen, the patient denies any chest pain did have occasional cough but no worsening sputum production, the patient denies abdominal pain and no diarrhea Objective - Vital Signs Vital signs: Vital Signs Temp 98.5 F 04/15/23 11:39 Pulse 100 04/15/23 12:01 Resp 18 04/15/23 11:39 BP 119/76 04/15/23 11:39 Pulse Ox 93 L 04/15/23 11:39 FiO2 40 04/11/23 21:09 Intake & Output 04/14/23 04/15/23 04/15/23 18:59 06:59 18:59 Intake Total 540 240 Balance 540 240 Weight 85.9 kg 85 kg Intake: Oral 540 240 Other: Voiding Method Toilet Toilet Toilet # Voids 1 3 1 # Bowel Movements 1 - Exam GENERAL DESCRIPTION: Middle-age female up in the chair in no distress RESPIRATORY SYSTEM: Unlabored breathing , coarse breath sounds bilaterally HEART: S1 S2 regular rate and rhythm , ABDOMEN: Soft , no tenderness EXTREMITIES: No edema feet - Labs CBC & Chem 7: 04/15/23 07:58 04/15/23 07:58 Labs: Abnormal Lab Results - Last 24 Hours (Table) 04/14/23 04/14/23 04/15/23 Range/Units 16:25 20:16 06:13 WBC (3.8-10.6) k/uL RBC (3.80-5.40) m/uL MCV (80.0-100.0) fL MCH (25.0-35.0) pg MCHC (31.0-37.0) g/dL RDW (11.5-15.5) % Chloride (98-107) mmol/L Carbon Dioxide (22-30) mmol/L BUN (7-17) mg/dL Creatinine (0.52-1.04) mg/dL Glucose (74-99) mg/dL POC Glucose (mg/dL) 493 H 391 H 131 H (70-110) mg/dL 04/15/23 04/15/23 04/15/23 Range/Units 07:58 07:58 11:58 WBC 15.6 H (3.8-10.6) k/uL RBC 5.50 H (3.80-5.40) m/uL MCV 74.7 L (80.0-100.0) fL MCH 22.4 L (25.0-35.0) pg MCHC 30.0 L (31.0-37.0) g/dL RDW 19.4 H (11.5-15.5) % Chloride 84 L (98-107) mmol/L Carbon Dioxide 46 H* (22-30) mmol/L BUN 60 H (7-17) mg/dL Creatinine 1.10 H (0.52-1.04) mg/dL Glucose 125 H (74-99) mg/dL POC Glucose (mg/dL) 455 H (70-110) mg/dL Microbiology - Last 24 Hours (Table) 04/13/23 10:13 Blood Culture - Preliminary Blood 04/08/23 18:28 Blood Culture - Final Blood Assessment and Plan (1) Bacteremia Current Visit: Yes Status: Acute Code(s): R78.81 - BACTEREMIA SNOMED Code(s): 1419670 Plan: 1patient with Clostridium perfringens bacteremia source is likely GI as the patient did have a significant symptoms of constipation patient did have a presenting symptoms of shortness of breath however there was no evidence of any pneumonia on the initial CT and another gram-positive to be less likely the source of pneumonia. 2blood cultures has been repeated document clearance of bacteremia, which are so far negative 3- CT abdominal pelvis with oral contrast did not show any acute abnormality 4Patient has shown clinical Improvement and will continue with Unasyn 3 g every 6 hours, with a plan to finish therapy with oral Augmentin and a close outpatient follow-up Time with Patient: Less than 30
--- NOTE | 2023-04-15 16:05 | P.PN ---
Subjective Progress Note Date: 04/15/23 62-year-old female patient, known history of COPD, maintain on home oxygen, comes into the hospital because of some altered mentation and shortness of breath. The patient was apparently hypoxic with a pulse ox of 40% on room air oxygen and his symptoms the patient was quite lethargic and obtunded. Currently she is on 4 L and she is awake and alert and communicating. She has had similar hospital admissions where she presented hospital because of altered mentation. Neuro workup has been done. No evidence of any CVA. She was considered to have seizures although this has not been officially confirmed the patient admitted on [facility]. It is very much likely that her encephalopathy is related to hypoxemic events. during this current admission, the patient was given a CT angiogram that showed no evidence of any pulmonary embolism. No focal consolidation. There is some bibasilar atelectatic change and the rest of the blood work showed a WBC of 8.0 with a hemoglobin of 11. D-dimer is 0.69. Sodium level was at 142, bicarb is at 40, BUN is at 36 with a creatinine of 0.7. Influenza a and B and RSV and Covid 17-year-old negative. On today's evaluation of 04/10/2023,and the patient's shortness of breath. Patient is improving. I was told that she is having episodes of confusion. Nevertheless, at the time of my evaluation, the patient was appropriate. She is on bronchodilators and steroids. Her white cycles of 19.4 with a hemoglobin of 12 BUN is 35 with a creatinine of 0.7 and a sodium level is 143. The cultures are negative. The patient is seen today 04/11/2023 in follow-up on the selective care unit. She is currently sitting up in bed. Awake and alert. She is having issues with episodes of confusion still today. She had her oxygen off and her O2 saturations were in the 70s. On the back on 4 L nasal cannula with O2 saturation 92%. Preliminary blood culture positive for anaerobic gram-positive bacilli. Blood glucose 375. She is currently on azithromycin. The patient is seen today 04/12/2023 in follow-up on the selective care unit. She is currently resting comfortably in bed. Awake and alert in no acute distress. Still requiring 5 L high flow nasal cannula to maintain O2 saturations in the 90s. She is continued on cefepime. Blood cultures showing C lostridium perfringens. White count 19.2. Hemoglobin 11.6. Platelets 160. Sodium 140. Potassium 4.3. Bicarb 43. BUN 39. Creatinine 0.76. Glucose 249. Remains on DuoNeb inhalations, IV Solu-Medrol. Remains on oral diuretics. Currently in a -1.2 L balance. Computed tomography scan of the abdomen and pelvis pending. The patient is seen today 04/13/2023 in follow-up on the selective care unit. She is currently sitting up in a chair at the bedside. Awake and alert in no acute distress. Chest x-ray shows similar cardiomegaly with pulmonary vascular congestion and a small right pleural effusion. Computed tomography scan of the abdomen and pelvis revealed no evidence for abscess, free air or inflammatory process. Blood culture was positive for Clostridium perfringens. White count 14.7. Hemoglobin 11.5. Platelets 138. Sodium 138. Potassium 4.0. Bicarb 43. BUN 51. Creatinine 0.86. Glucose 346. She is currently on Unasyn. Remains on bronchodilators, IV Solu-Medrol, oral diuretics. Currently in a -1.4 L balance. The patient is seen today 04/15/2023 in follow-up on the selective care unit. She is currently sitting up in a chair at the bedside. We will alert in no acute distress. Maintaining O2 saturations in the 90s on 5 L/m per nasal cannula. She is continued on DuoNeb inhalations, IV Solu-Medrol. NicoDerm patch in place. Blood culture positive for Clostridium perfringens. Antibiotics in the form of Unasyn. Chest x-ray reveals hypoventilatory changes. Mild cardiomegaly. Some pulmonary vascular congestion. White count 15.6. Hemoglobin 12.3. Platelets 174. Sodium 140. Potassium 3.8. Bicarb 46. BUN 60. Creatinine 1.10. Glucose 125. Objective - Vital Signs Vital signs: Vital Signs Temp 98.5 F 04/15/23 11:39 Pulse 100 04/15/23 12:01 Resp 18 04/15/23 11:39 BP 119/76 04/15/23 11:39 Pulse Ox 93 L 04/15/23 11:39 FiO2 40 04/11/23 21:09 Intake & Output 04/14/23 04/15/23 04/15/23 18:59 06:59 18:59 Intake Total 315 358 3180 Balance 805 234 4395 Weight 85.9 kg 85 kg Intake: Oral 373 899 9713 Other: Voiding Method Toilet Toilet Toilet # Voids 1 3 2 # Bowel Movements 1 - Exam GENERAL EXAM: Alert, 62-year-old female, up in a chair, on 5 L nasal cannula, comfortable in no apparent distress. HEAD: Normocephalic. EYES: Normal reaction of pupils, equal size. NOSE: Clear with pink turbinates. THROAT: No erythema or exudates. NECK: No masses, no JVD. CHEST: No chest wall deformity. LUNGS: Equal air entry with faint crackles in the posterior bases. CVS: S1 and S2 normal with no audible murmur, regular rhythm. ABDOMEN: No hepatosplenomegaly, normal bowel sounds, no guarding or rigidity. SPINE: No scoliosis or deformity SKIN: No rashes CENTRAL NERVOUS SYSTEM: Expressive aphasia, no significant weakness noted. No focal deficits, tone is normal in all 4 extremities. EXTREMITIES: There is no peripheral edema. No clubbing, no cyanosis. Peripheral pulses are intact. - Labs CBC & Chem 7: 04/15/23 07:58 04/15/23 07:58 Labs: Abnormal Lab Results - Last 24 Hours (Table) 04/14/23 04/14/23 04/15/23 Range/Units 16:25 20:16 06:13 WBC (3.8-10.6) k/uL RBC (3.80-5.40) m/uL MCV (80.0-100.0) fL MCH (25.0-35.0) pg MCHC (31.0-37.0) g/dL RDW (11.5-15.5) % Chloride (98-107) mmol/L Carbon Dioxide (22-30) mmol/L BUN (7-17) mg/dL Creatinine (0.52-1.04) mg/dL Glucose (74-99) mg/dL POC Glucose (mg/dL) 493 H 391 H 131 H (70-110) mg/dL 04/15/23 04/15/23 04/15/23 Range/Units 07:58 07:58 11:58 WBC 15.6 H (3.8-10.6) k/uL RBC 5.50 H (3.80-5.40) m/uL MCV 74.7 L (80.0-100.0) fL MCH 22.4 L (25.0-35.0) pg MCHC 30.0 L (31.0-37.0) g/dL RDW 19.4 H (11.5-15.5) % Chloride 84 L (98-107) mmol/L Carbon Dioxide 46 H* (22-30) mmol/L BUN 60 H (7-17) mg/dL Creatinine 1.10 H (0.52-1.04) mg/dL Glucose 125 H (74-99) mg/dL POC Glucose (mg/dL) 455 H (70-110) mg/dL Microbiology - Last 24 Hours (Table) 04/13/23 10:13 Blood Culture - Preliminary Blood 04/08/23 18:28 Blood Culture - Final Blood Assessment and Plan Assessment: Acute exacerbation of chronic obstructive pulmonary disease, no evidence of pneumonia. The patient is a chronic smoker and she is oxygen dependent. CT angiogram ruled out central pulmonary embolism. There is evidence of car diomegaly. Mild pulmonary vascular congestion. Bilateral atelectasis. No focal lobar consolidation. Currently on oral Lasix Acute on chronic hypoxemic respiratory failure, currently on 5 L of O2 nasal cannula Altered mental status. Most likely this is related to the underlying hypoxemia and the patient was severely hypoxic prior to her hospital admission Bacteremia secondary to Clostridium perfringens, currently on Unasyn Mild transaminitis of unclear etiology Chronic and ongoing tobacco dependence History of diabetes mellitus History of hyperlipidemia Hypertension Osteoarthritis. History of gout Plan: The patient was seen and evaluated Chest x-ray, medications and labs reviewed Continue oxygen at 5 L/m per nasal cannula Continue bronchodilators Discontinue Solu-Medrol Continue prednisone taper Currently on Unasyn Antibiotic coverage per ID service Cleared for discharge from the pulmonary standpoint I have personally seen and examined the patient, performed the documentation and the assessment and plan as written. Number of minutes spent on the visit: 10.
[2023-04-15 16:53] LABS: Glucose,Whole Blood 373 mg/dL (70-110)
[2023-04-15 20:40] LABS: Glucose,Whole Blood 218 mg/dL (70-110)
[2023-04-15] MEDS: CYCLOBENZAPRINE 10 MG TAB PO SCH (20:52)
[2023-04-15] MEDS: ATORVASTATIN 80 MG TAB PO SCH (20:53)
[2023-04-16] MEDS: INSULIN ASPART (NovoLOG) 100 UNIT/ML VIAL SQ SCH ×11 (04:57→20:08)
[2023-04-16 06:01] LABS: Glucose,Whole Blood 94 mg/dL (70-110)
[2023-04-16] MEDS: PANTOPRAZOLE 40 MG TABLET PO SCH (06:10)
[2023-04-16] MEDS: INSULIN DETEMIR (LEVEMIR) 100 UNIT/ML SYR SQ SCH ×2 (06:10→20:40)
[2023-04-16] MEDS: NICOTINE 21MG/24HR PATCH TRANSDERM SCH (08:59)
[2023-04-16] MEDS: AMPICILLIN-SULBACTAM 3 GM in SODIUM CHLORIDE 0.9% 100 ML IVPB SCH ×3 (08:59→20:08)
[2023-04-16] MEDS: FENOFIBRATE 160 MG TAB PO SCH (09:00)
[2023-04-16] MEDS: FUROSEMIDE 40 MG TAB PO SCH ×3 (09:00→23:15)
[2023-04-16] MEDS: POTASSIUM CHLORIDE ER 10 MEQ TAB.ER.PRT PO SCH (09:00)
[2023-04-16] MEDS: metFORMIN 500 MG TAB PO SCH ×2 (09:00→20:07)
[2023-04-16] MEDS: allopurinoL 100 MG TAB PO SCH (09:00)
[2023-04-16] MEDS: METOPROLOL TARTRATE 12.5 MG TAB PO SCH ×2 (09:00→20:07)
[2023-04-16] MEDS: PREGABALIN 75 MG CAP PO SCH ×2 (09:00→20:07)
[2023-04-16] MEDS: MAGNESIUM OXIDE 400 MG TAB PO SCH ×2 (09:00→20:07)
[2023-04-16] MEDS: ASPIRIN 325 MG TAB PO SCH (09:00)
[2023-04-16] MEDS: DAPAGLIFLOZIN PROPANEDIOL 10 MG TABLET PO SCH (09:01)
[2023-04-16] MEDS: GLIMEPIRIDE 4 MG TAB PO SCH (09:01)
[2023-04-16 09:03] LABS: Anisocytosis Slight; HCT 42.4 % (34.0-46.0); HGB 11.9 gm/dL (11.4-16.0); Hypochromasia Marked; MCH 21.3 pg (25.0-35.0); MCHC 28.1 g/dL (31.0-37.0); MCV 75.7 fL (80.0-100.0); Microcytosis Moderate; Platelet Count 165 k/uL (150-450); Poikilocytosis Moderate; RBC 5.59 m/uL (3.80-5.40); RDW 19.4 % (11.5-15.5); WBC 14.3 k/uL (3.8-10.6)
[2023-04-16] MEDS: methylPREDNISolone SOD SUCCI 40 MG/ML 1 ML VIAL IV SCH (09:03)
[2023-04-16] MEDS: IPRATROPIUM-ALBUTEROL 3 ML NEB INHALATION SCH ×4 (09:05→21:10)
[2023-04-16] MEDS: HYDROcodone/APAP 5-325MG 1 EACH TAB PO PRN ×2 (09:12→20:07)
[2023-04-16 09:23] LABS: African American GFR (CKD) 72 (>60 ml/min/1.73 sqM); Blood Urea Nitrogen 60 mg/dL (7-17); Calcium 9.1 mg/dL (8.4-10.2); Chloride 84 mmol/L (98-107); Glucose 161 mg/dL (74-99); Non-African American GFR(CKD) 63 (>60 ml/min/1.73 sqM); Potassium 3.7 mmol/L (3.5-5.1); Sodium 138 mmol/L (137-145)
[2023-04-16 09:30] LABS: Anion Gap 10 mmol/L
[2023-04-16 09:49] LABS: Carbon Dioxide 44 mmol/L (22-30)
--- NOTE | 2023-04-16 09:57 | P.PN ---
Subjective Progress Note Date: 04/16/23 Principal diagnosis: Bacteremia Patient is a 62-year-old female with a past medical history significant for COPD presenting to the hospital for evaluation of increasing s hortness of breath, CT of chest was negative for any pneumonia patient did have blood culture drawn on admission subsequently came back positive with Clostridium perfringens patient did have a CT of abdominal pelvis completed on 04/12/2023 did not show any abscess or colitis On today's evaluation that is 04/16/2023, the patient remains to be afebrile, the patient is breathing comfortably on 5 L nasal cannula oxygen, the patient denies any chest pain, the patient denies any worsening cough or sputum production no abdominal pain no diarrhea no nausea or vomiting Objective - Vital Signs Vital signs: Vital Signs Temp 97.8 F 04/16/23 03:00 Pulse 94 04/16/23 03:00 Resp 18 04/16/23 03:00 BP 121/92 04/16/23 03:00 Pulse Ox 94 L 04/16/23 03:00 FiO2 40 04/11/23 21:09 Intake & Output 04/15/23 04/16/23 04/16/23 18:59 06:59 18:59 Intake Total 1040 Balance 1040 Intake: Oral 1040 Other: Voiding Method Toilet Toilet # Voids 2 1 # Bowel Movements 1 - Exam GENERAL DESCRIPTION: Middle-age female up in the chair in no distress RESPIRATORY SYSTEM: Unlabored breathing , coarse breath sounds bilaterally HEART: S1 S2 regular rate and rhythm , ABDOMEN: Soft , no tenderness EXTREMITIES: No edema feet - Labs CBC & Chem 7: 04/16/23 07:42 04/16/23 07:42 Labs: Abnormal Lab Results - Last 24 Hours (Table) 04/15/23 04/15/23 04/15/23 Range/Units 07:58 07:58 11:58 WBC 15.6 H (3.8-10.6) k/uL RBC 5.50 H (3.80-5.40) m/uL MCV 74.7 L (80.0-100.0) fL MCH 22.4 L (25.0-35.0) pg MCHC 30.0 L (31.0-37.0) g/dL RDW 19.4 H (11.5-15.5) % Chloride 84 L (98-107) mmol/L Carbon Dioxide 46 H* (22-30) mmol/L BUN 60 H (7-17) mg/dL Creatinine 1.10 H (0.52-1.04) mg/dL Glucose 125 H (74-99) mg/dL POC Glucose (mg/dL) 455 H (70-110) mg/dL 04/15/23 04/15/23 Range/Units 16:51 20:38 WBC (3.8-10.6) k/uL RBC (3.80-5.40) m/uL MCV (80.0-100.0) fL MCH (25.0-35.0) pg MCHC (31.0-37.0) g/dL RDW (11.5-15.5) % Chloride (98-107) mmol/L Carbon Dioxide (22-30) mmol/L BUN (7-17) mg/dL Creatinine (0.52-1.04) mg/dL Glucose (74-99) mg/dL POC Glucose (mg/dL) 373 H 218 H (70-110) mg/dL Assessment and Plan (1) Bacteremia Current Visit: Yes Status: Acute Code(s): R78.81 - BACTEREMIA SNOMED Code(s): 3340983 Plan: 1patient with Clostridium perfringens bacteremia source is likely GI as the patient did have a significant symptoms of constipation patient did have a presenting symptoms of shortness of breath however there was no evidence of any pneumonia on the initial CT and another gram-positive to be less likely the source of pneumonia. 2blood cultures has been repeated document clearance of bacteremia, which are so far negative 3- CT abdominal pelvis with oral contrast did not show any acute abnormality 4Patient slowly clinically improving patient to continue with Unasyn 3 g every 6 hours, with a plan to finish therapy with oral Augmentin, questions concerned were answered Time with Patient: Less than 30
[2023-04-16 12:16] LABS: Glucose,Whole Blood 424 mg/dL (70-110)
--- NOTE | 2023-04-16 13:58 | P.PN ---
Subjective Progress Note Date: 04/16/23 62-year-old female patient, known history of COPD, maintain on home oxygen, comes into the hospital because of some altered mentation and shortness of breath. The patient was apparently hypoxic with a pulse ox of 40% on room air oxygen and his symptoms the patient was quite lethargic and obtunded. Currently she is on 4 L and she is awake and alert and communicating. She has had similar hospital admissions where she presented hospital because of altered mentation. Neuro workup has been done. No evidence of any CVA. She was considered to have seizures although this has not been officially confirmed the patient admitted on [facility]. It is very much likely that her encephalopathy is related to hypoxemic events. during this current admission, the patient was given a CT angiogram that showed no evidence of any pulmonary embolism. No focal consolidation. There is some bibasilar atelectatic change and the rest of the blood work showed a WBC of 8.0 with a hemoglobin of 11. D-dimer is 0.69. Sodium level was at 142, bicarb is at 40, BUN is at 36 with a creatinine of 0.7. Influenza a and B and RSV and Covid 19-year-old negative. On today's evaluation of 04/10/2023,and the patient's shortness of breath. Patient is improving. I was told that she is having episodes of confusion. Nevertheless, at the time of my evaluation, the patient was appropriate. She is on bronchodilators and steroids. Her white cycles of 19.4 with a hemoglobin of 12 BUN is 35 with a creatinine of 0.7 and a sodium level is 143. The cultures are negative. The patient is seen today 04/11/2023 in follow-up on the selective care unit. She is currently sitting up in bed. Awake and alert. She is having issues with episodes of confusion still today. She had her oxygen off and her O2 saturations were in the 70s. On the back on 4 L nasal cannula with O2 saturation 92%. Preliminary blood culture positive for anaerobic gram-positive bacilli. Blood glucose 375. She is currently on azithromycin. The patient is seen today 04/12/2023 in follow-up on the selective care unit. She is currently resting comfortably in bed. Awake and alert in no acute distress. Still requiring 5 L high flow nasal cannula to maintain O2 saturations in the 90s. She is continued on cefepime. Blood cultures showing C lostridium perfringens. White count 19.2. Hemoglobin 11.6. Platelets 160. Sodium 140. Potassium 4.3. Bicarb 43. BUN 39. Creatinine 0.76. Glucose 249. Remains on DuoNeb inhalations, IV Solu-Medrol. Remains on oral diuretics. Currently in a -1.2 L balance. Computed tomography scan of the abdomen and pelvis pending. The patient is seen today 04/13/2023 in follow-up on the selective care unit. She is currently sitting up in a chair at the bedside. Awake and alert in no acute distress. Chest x-ray shows similar cardiomegaly with pulmonary vascular congestion and a small right pleural effusion. Computed tomography scan of the abdomen and pelvis revealed no evidence for abscess, free air or inflammatory process. Blood culture was positive for Clostridium perfringens. White count 14.7. Hemoglobin 11.5. Platelets 138. Sodium 138. Potassium 4.0. Bicarb 43. BUN 51. Creatinine 0.86. Glucose 346. She is currently on Unasyn. Remains on bronchodilators, IV Solu-Medrol, oral diuretics. Currently in a -1.4 L balance. The patient is seen today 04/15/2023 in follow-up on the selective care unit. She is currently sitting up in a chair at the bedside. We will alert in no acute distress. Maintaining O2 saturations in the 90s on 5 L/m per nasal cannula. She is continued on DuoNeb inhalations, IV Solu-Medrol. NicoDerm patch in place. Blood culture positive for Clostridium perfringens. Antibiotics in the form of Unasyn. Chest x-ray reveals hypoventilatory changes. Mild cardiomegaly. Some pulmonary vascular congestion. White count 15.6. Hemoglobin 12.3. Platelets 174. Sodium 140. Potassium 3.8. Bicarb 46. BUN 60. Creatinine 1.10. Glucose 125. The patient is seen today 04/16/2023 in follow-up on the selective care unit. She is currently sitting up in bed. Awake and alert in no acute distress. Maintaining good O2 saturations in the 90s on 5 L/m per nasal cannula. Initial blood culture positive for Clostridium perfringens. Follow-up blood cultures revealing no growth. White count 14.3. Hemoglobin 11.9. Platelets 165. Sodium 138. Potassium 3.7. Bicarb 44. BUN 60. Creatinine 0.96. Glucose 161. She remains on antibiotics in the form of Unasyn. Continued on bronchodilators and steroids. NicoDerm patch in place. Objective - Vital Signs Vital signs: Vital Signs Temp 97.8 F 04/16/23 03:00 Pulse 110 H 04/16/23 12:35 Resp 16 04/16/23 12:00 BP 108/65 04/16/23 12:00 Pulse Ox 94 L 04/16/23 12:00 FiO2 40 04/11/23 21:09 Intake & Output 04/15/23 04/16/23 04/16/23 18:59 06:59 18:59 Intake Total 1040 420 Balance 1040 420 Intake: Oral 1040 420 Other: Voiding Method Toilet Toilet Toilet # Voids 2 1 # Bowel Movements 1 - Exam GENERAL EXAM: Alert, pleasant 62-year-old female, on 5 L nasal cannula, comfortable in no apparent distress. HEAD: Normocephalic. EYES: Normal reaction of pupils, equal size. NOSE: Clear with pink turbinates. THROAT: No erythema or exudates. NECK: No masses, no JVD. CHEST: No chest wall deformity. LUNGS: Equal air entry with faint crackles in the posterior bases. CVS: S1 and S2 normal with no audible murmur, regular rhythm. ABDOMEN: No hepatosplenomegaly, normal bowel sounds, no guarding or rigidity. SPINE: No scoliosis or deformity SKIN: No rashes CENTRAL NERVOUS SYSTEM: Expressive aphasia, no significant weakness noted. No focal deficits, tone is normal in all 4 extremities. EXTREMITIES: There is no peripheral edema. No clubbing, no cyanosis. Peripheral pulses are intact. - Labs CBC & Chem 7: 04/16/23 07:42 04/16/23 07:42 Labs: Abnormal Lab Results - Last 24 Hours (Table) 04/15/23 04/15/23 04/16/23 Range/Units 16:51 20:38 07:42 WBC (3.8-10.6) k/uL RBC (3.80-5.40) m/uL MCV (80.0-100.0) fL MCH (25.0-35.0) pg MCHC (31.0-37.0) g/dL RDW (11.5-15.5) % Chloride (98-107) mmol/L Carbon Dioxide (22-30) mmol/L BUN (7-17) mg/dL Glucose (74-99) mg/dL POC Glucose (mg/dL) 373 H 218 H (70-110) mg/dL Hemoglobin A1c 8.7 H (<=6.0) % 04/16/23 04/16/23 04/16/23 Range/Units 07:42 07:42 12:15 WBC 14.3 H (3.8-10.6) k/uL RBC 5.59 H (3.80-5.40) m/uL MCV 75.7 L (80.0-100.0) fL MCH 21.3 L (25.0-35.0) pg MCHC 28.1 L (31.0-37.0) g/dL RDW 19.4 H (11.5-15.5) % Chloride 84 L (98-107) mmol/L Carbon Dioxide 44 H* (22-30) mmol/L BUN 60 H (7-17) mg/dL Glucose 161 H (74-99) mg/dL POC Glucose (mg/dL) 424 H (70-110) mg/dL Hemoglobin A1c (<=6.0) % Assessment and Plan Assessment: Acute exacerbation of chronic obstructive pulmonary disease, no evidence of pneumonia. The patient is a chronic smoker and she is oxygen dependent. CT angiogram ruled out central pulmonary embolism. There is evidence of cardiomegaly. Mild pulmonary vascular congestion. Bilateral atelectasis. No focal lobar consolidation. Currently on oral Lasix Acute on chronic hypoxemic respiratory failure, currently on 5 L of O2 nasal cannula Altered mental status. Most likely this is related to the underlying hypoxemia and the patient was severely hypoxic prior to her hospital admission Bacteremia secondary to Clostridium perfringens, currently on Unasyn Mild transaminitis of unclear etiology Chronic and ongoing tobacco dependence History of diabetes mellitus History of hyperlipidemia Hypertension Osteoarthritis. History of gout Plan: The patient was seen and evaluated Medications and labs reviewed Continue oxygen at 5 L/m per nasal cannula Antibiotic coverage per ID service The patient is anxious to go home Cleared for discharge from the pulmonary standpoint I have personally seen and examined the patient, performed the documentation and the assessment and plan as written. Number of minutes spent on the visit: 10.
[2023-04-16 16:56] LABS: Glucose,Whole Blood 322 mg/dL (70-110)
[2023-04-16 19:40] LABS: Glucose,Whole Blood 207 mg/dL (70-110)
[2023-04-16] MEDS: ATORVASTATIN 80 MG TAB PO SCH (20:07)
[2023-04-16] MEDS: CYCLOBENZAPRINE 10 MG TAB PO SCH (20:08)
[2023-04-17] MEDS: AMPICILLIN-SULBACTAM 3 GM in SODIUM CHLORIDE 0.9% 100 ML IVPB SCH ×4 (03:02→20:45)
[2023-04-17 05:58] LABS: Glucose,Whole Blood 152 mg/dL (70-110)
[2023-04-17] MEDS: INSULIN ASPART (NovoLOG) 100 UNIT/ML VIAL SQ SCH ×11 (06:27→20:46)
[2023-04-17] MEDS: PANTOPRAZOLE 40 MG TABLET PO SCH (06:58)
[2023-04-17] MEDS: INSULIN DETEMIR (LEVEMIR) 100 UNIT/ML SYR SQ SCH ×2 (06:58→20:58)
[2023-04-17] MEDS: HYDROcodone/APAP 5-325MG 1 EACH TAB PO PRN ×2 (06:58→20:46)
[2023-04-17] MEDS: DAPAGLIFLOZIN PROPANEDIOL 10 MG TABLET PO SCH (08:32)
[2023-04-17] MEDS: NICOTINE 21MG/24HR PATCH TRANSDERM SCH (08:32)
[2023-04-17] MEDS: METOPROLOL TARTRATE 12.5 MG TAB PO SCH ×2 (08:33→20:44)
[2023-04-17] MEDS: MAGNESIUM OXIDE 400 MG TAB PO SCH ×2 (08:33→20:45)
[2023-04-17] MEDS: GLIMEPIRIDE 4 MG TAB PO SCH (08:33)
[2023-04-17] MEDS: metFORMIN 500 MG TAB PO SCH ×2 (08:33→20:44)
[2023-04-17] MEDS: POTASSIUM CHLORIDE ER 10 MEQ TAB.ER.PRT PO SCH (08:33)
[2023-04-17] MEDS: predniSONE 20 MG TAB PO SCH (08:33)
[2023-04-17] MEDS: FENOFIBRATE 160 MG TAB PO SCH (08:33)
[2023-04-17] MEDS: ASPIRIN 325 MG TAB PO SCH (08:33)
[2023-04-17] MEDS: FUROSEMIDE 40 MG TAB PO SCH ×3 (08:33→23:05)
[2023-04-17] MEDS: PREGABALIN 75 MG CAP PO SCH ×2 (08:33→20:44)
[2023-04-17] MEDS: allopurinoL 100 MG TAB PO SCH (08:33)
[2023-04-17] MEDS: IPRATROPIUM-ALBUTEROL 3 ML NEB INHALATION SCH ×4 (08:40→21:37)
[2023-04-17 11:51] LABS: Glucose,Whole Blood 132 mg/dL (70-110)
--- NOTE | 2023-04-17 12:27 | P.PN ---
Subjective Progress Note Date: 04/17/23 62-year-old female patient, known history of COPD, maintain on home oxygen, comes into the hospital because of some altered mentation and shortness of breath. The patient was apparently hypoxic with a pulse ox of 40% on room air oxygen and his symptoms the patient was quite lethargic and obtunded. Currently she is on 4 L and she is awake and alert and communicating. She has had similar hospital admissions where she presented hospital because of altered mentation. Neuro workup has been done. No evidence of any CVA. She was considered to have seizures although this has not been officially confirmed the patient admitted on [facility]. It is very much likely that her encephalopathy is related to hypoxemic events. during this current admission, the patient was given a CT angiogram that showed no evidence of any pulmonary embolism. No focal consolidation. There is some bibasilar atelectatic change and the rest of the blood work showed a WBC of 8.0 with a hemoglobin of 11. D-dimer is 0.69. Sodium level was at 142, bicarb is at 40, BUN is at 36 with a creatinine of 0.7. Influenza a and B and RSV and Covid 17-year-old negative. On today's evaluation of 04/10/2023,and the patient's shortness of breath. Patient is improving. I was told that she is having episodes of confusion. Nevertheless, at the time of my evaluation, the patient was appropriate. She is on bronchodilators and steroids. Her white cycles of 19.4 with a hemoglobin of 12 BUN is 35 with a creatinine of 0.7 and a sodium level is 143. The cultures are negative. The patient is seen today 04/11/2023 in follow-up on the selective care unit. She is currently sitting up in bed. Awake and alert. She is having issues with episodes of confusion still today. She had her oxygen off and her O2 saturations were in the 70s. On the back on 4 L nasal cannula with O2 saturation 92%. Preliminary blood culture positive for anaerobic gram-positive bacilli. Blood glucose 375. She is currently on azithromycin. The patient is seen today 04/12/2023 in follow-up on the selective care unit. She is currently resting comfortably in bed. Awake and alert in no acute distress. Still requiring 5 L high flow nasal cannula to maintain O2 saturations in the 90s. She is continued on cefepime. Blood cultures showing C lostridium perfringens. White count 19.2. Hemoglobin 11.6. Platelets 160. Sodium 140. Potassium 4.3. Bicarb 43. BUN 39. Creatinine 0.76. Glucose 249. Remains on DuoNeb inhalations, IV Solu-Medrol. Remains on oral diuretics. Currently in a -1.2 L balance. Computed tomography scan of the abdomen and pelvis pending. The patient is seen today 04/13/2023 in follow-up on the selective care unit. She is currently sitting up in a chair at the bedside. Awake and alert in no acute distress. Chest x-ray shows similar cardiomegaly with pulmonary vascular congestion and a small right pleural effusion. Computed tomography scan of the abdomen and pelvis revealed no evidence for abscess, free air or inflammatory process. Blood culture was positive for Clostridium perfringens. White count 14.7. Hemoglobin 11.5. Platelets 138. Sodium 138. Potassium 4.0. Bicarb 43. BUN 51. Creatinine 0.86. Glucose 346. She is currently on Unasyn. Remains on bronchodilators, IV Solu-Medrol, oral diuretics. Currently in a -1.4 L balance. The patient is seen today 04/15/2023 in follow-up on the selective care unit. She is currently sitting up in a chair at the bedside. We will alert in no acute distress. Maintaining O2 saturations in the 90s on 5 L/m per nasal cannula. She is continued on DuoNeb inhalations, IV Solu-Medrol. NicoDerm patch in place. Blood culture positive for Clostridium perfringens. Antibiotics in the form of Unasyn. Chest x-ray reveals hypoventilatory changes. Mild cardiomegaly. Some pulmonary vascular congestion. White count 15.6. Hemoglobin 12.3. Platelets 174. Sodium 140. Potassium 3.8. Bicarb 46. BUN 60. Creatinine 1.10. Glucose 125. The patient is seen today 04/16/2023 in follow-up on the selective care unit. She is currently sitting up in bed. Awake and alert in no acute distress. Maintaining good O2 saturations in the 90s on 5 L/m per nasal cannula. Initial blood culture positive for Clostridium perfringens. Follow-up blood cultures revealing no growth. White count 14.3. Hemoglobin 11.9. Platelets 165. Sodium 138. Potassium 3.7. Bicarb 44. BUN 60. Creatinine 0.96. Glucose 161. She remains on antibiotics in the form of Unasyn. Continued on bronchodilators and steroids. NicoDerm patch in place. The patient is seen today 04/17/2023 in follow-up on the selective care unit. Currently sitting up at the bedside. Awake and alert in no acute distress. Maintaining O2 saturations in the 90s on 5 L/m per nasal cannula. She still has a loose nonproductive cough. Today with some wheezing. Follow-up blood culture reveals no growth. Blood sugar 132. She remains on antibiotics in the form of Unasyn. Continued on bronchodilators and steroids. NicoDerm patch in place. Objective - Vital Signs Vital signs: Vital Signs Temp 98.2 F 04/17/23 11:50 Pulse 92 04/17/23 12:04 Resp 18 04/17/23 11:50 BP 126/69 04/17/23 11:50 Pulse Ox 96 04/17/23 11:50 FiO2 40 04/11/23 21:09 Intake & Output 04/16/23 04/17/23 04/17/23 18:59 06:59 18:59 Intake Total 1278 180 Output Total 1500 Balance 1278 -1320 Weight 85.1 kg Intake: Oral 1278 180 Output: Urine 1500 Other: Voiding Method Toilet Toilet Toilet # Voids 1 # Bowel Movements 1 - Exam GENERAL EXAM: Alert, pleasant 62-year-old female, sitting up at the bedside, on 5 L nasal cannula, comfortable in no apparent distress. HEAD: Normocephalic. EYES: Normal reaction of pupils, equal size. NOSE: Clear with pink turbinates. THROAT: No erythema or exudates. NECK: No masses, no JVD. CHEST: No chest wall deformity. LUNGS: Equal air entry with faint crackles in the posterior bases. End expiratory wheeze. CVS: S1 and S2 normal with no audible murmur, regular rhythm. ABDOMEN: No hepatosplenomegaly, normal bowel sounds, no guarding or rigidity. SPINE: No scoliosis or deformity SKIN: No rashes CENTRAL NERVOUS SYSTEM: Expressive aphasia, no significant weakness noted. No focal deficits, tone is normal in all 4 extremities. EXTREMITIES: There is no peripheral edema. No clubbing, no cyanosis. Peripheral pulses are intact. - Labs CBC & Chem 7: 04/16/23 07:42 04/16/23 07:42 Labs: Abnormal Lab Results - Last 24 Hours (Table) 04/16/23 04/16/23 04/16/23 Range/Units 07:42 16:55 19:39 POC Glucose (mg/dL) 322 H 207 H (70-110) mg/dL Hemoglobin A1c 8.7 H (<=6.0) % 04/17/23 04/17/23 Range/Units 05:57 11:50 POC Glucose (mg/dL) 152 H 132 H (70-110) mg/dL Hemoglobin A1c (<=6.0) % Microbiology - Last 24 Hours (Table) 04/13/23 10:13 Blood Culture - Preliminary Blood Assessment and Plan Assessment: Acute exacerbation of chronic obstructive pulmonary disease, no evidence of pneumonia. The patient is a chronic smoker and she is oxygen dependent. CT angiogram ruled out central pulmonary embolism. There is evidence of cardiomegaly. Mild pulmonary vascular congestion. Bilateral atelectasis. No focal lobar consolidation. Currently on oral Lasix Acute on chronic hypoxemic respiratory failure, currently on 5 L of O2 nasal cannula Altered mental status. Most likely this is related to the underlying hypoxemia and the patient was severely hypoxic prior to her hospital admission Bacteremia secondary to Clostridium perfringens, currently on Unasyn Mild transaminitis of unclear etiology Chronic and ongoing tobacco dependence History of diabetes mellitus History of hyperlipidemia Hypertension Osteoarthritis. History of gout Plan: The patient was seen and evaluated Medications and labs reviewed Continue oxygen at 5 L/m per nasal cannula Antibiotic coverage per ID service Continued on bronchodilators, prednisone taper Again educated regarding the importance of complete smoking cessation NicoDerm patch in place I have personally seen and examined the patient, performed the documentation and the assessment and plan as written. Number of minutes spent on the visit: 10.
--- NOTE | 2023-04-17 15:11 | P.PN ---
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 Patient states her breathing has improved. Patient continued to remain on Unasyn, white cell count trending down, continue to remain on 5 L of Oxygen 04/15>> patient states breathing has improved however continue to remain on 5 L at baseline patient weighs 2 L of oxygen. Noted to have significant hyperglycemia most recent HbA1c in September 2022 was 7.3, continue oral hypoglycemic started on Lantus and NovoLog while inpatient is receiving steroids. Continue to monitor blood glucose levels as well continue on IV antibiotic potential discharge in next 48-72 hour 04/16/2023 Patient is seen and evaluated in follow-up on the selective care unit. She is currently sitting up in bed. Awake and alert in no acute distress. Maintaining good O2 saturations in the 90s on 5 L/m per nasal cannula. Initial blood culture positive for Clostridium perfringens. Follow-up blood cultures revealing no growth. White count 14.3. Hemoglobin 11.9. Platelets 165. Sodium 138. Potassium 3.7. Bicarb 44. BUN 60. Creatinine 0.96. Glucose 161. She remains on antibiotics in the form of Unasyn. Continued on bronchodilators and steroids. NicoDerm patch in place. Continue oxygen at 5 L/m per nasal cannula Antibiotic coverage per ID service Objective - Vital Signs Vital signs: Vital Signs Temp 97.8 F 04/16/23 03:00 Pulse 110 H 04/16/23 12:35 Resp 16 04/16/23 12:00 BP 108/65 04/16/23 12:00 Pulse Ox 94 L 04/16/23 12:00 FiO2 40 04/11/23 21:09 Intake & Output 04/15/23 04/16/23 04/16/23 18:59 06:59 18:59 Intake Total 1040 738 Balance 1040 738 Intake: Oral 1040 738 Other: Voiding Method Toilet Toilet Toilet # Voids 2 1 # Bowel Movements 1 - Exam General appearance: alert, ill , nasal canulla in place Head exam: Present: atraumatic, normocephalic, normal inspection Respiratory exam, decreased breath sounds, no use of accessory muscle Cardiovascular Exam: Present: regular rate, normal rhythm, normal heart sounds. Absent: systolic murmur, diastolic murmur, rubs, gallop, clicks GI/Abdominal exam: Present: soft, normal bowel sounds. Absent: distended, tenderness, guarding, rebound, rigid, bruit, pulsatile mass (Obese abdomen) Extremities exam: Present: normal inspection, full ROM, normal capillary refill. Absent: tenderness, pedal edema, joint swelling, calf tenderness Neurological exam: Present: alert, oriented X 2, confused and does not appear to be at baseline Skin exam: Present: Chronic healing lesion noted in left lower extremity - Labs CBC & Chem 7: 04/16/23 07:42 04/16/23 07:42 Labs: Abnormal Lab Results - Last 24 Hours (Table) 04/15/23 04/15/23 04/16/23 Range/Units 16:51 20:38 07:42 WBC (3.8-10.6) k/uL RBC (3.80-5.40) m/uL MCV (80.0-100.0) fL MCH (25.0-35.0) pg MCHC (31.0-37.0) g/dL RDW (11.5-15.5) % Chloride (98-107) mmol/L Carbon Dioxide (22-30) mmol/L BUN (7-17) mg/dL Glucose (74-99) mg/dL POC Glucose (mg/dL) 373 H 218 H (70-110) mg/dL Hemoglobin A1c 8.7 H (<=6.0) % 04/16/23 04/16/23 04/16/23 Range/Units 07:42 07:42 12:15 WBC 14.3 H (3.8-10.6) k/uL RBC 5.59 H (3.80-5.40) m/uL MCV 75.7 L (80.0-100.0) fL MCH 21.3 L (25.0-35.0) pg MCHC 28.1 L (31.0-37.0) g/dL RDW 19.4 H (11.5-15.5) % Chloride 84 L (98-107) mmol/L Carbon Dioxide 44 H* (22-30) mmol/L BUN 60 H (7-17) mg/dL Glucose 161 H (74-99) mg/dL POC Glucose (mg/dL) 424 H (70-110) mg/dL Hemoglobin A1c (<=6.0) % Assessment and Plan Assessment: * Acute COPD exacerbation, Tracheobronhitis * Acute on chronic hypoxemic hypercapnic respiratory failure baseline 2 L oxygen * Gram positive bacilli bacteremia>> Clostridium perfringens * Sepsis secondary to bacteremia * Acute Metabolic Encephalopathy * Chronic and ongoing tobacco dependence * History of diabetes mellitus * History of hyperlipidemia * Hypertension * Osteoarthritis. * History of gout * Seziure disorder In regards to COPD Continue Azithromycin Day 03/11 COMPLETED , continue patient on Solu-Medrol, pulmonary medicine following In regards to bacteremia cefepime transitioned to IV Unasyn day 3 (of Antibiotics), CT abdomen and pelvis negative for intra-abdominal source In regards to diabetes mellitus Continue Insulin Sliding scale, metformin In regards to history of hypertension continue aspirin, Lipitor, Lasix Regards to seizure disorder continue patient on Keppra Oxygen support Home meds reconciled
[2023-04-17 16:42] LABS: Glucose,Whole Blood 448 mg/dL (70-110)
[2023-04-17 19:44] LABS: Glucose,Whole Blood 319 mg/dL (70-110)
[2023-04-17] MEDS: ATORVASTATIN 80 MG TAB PO SCH (20:44)
[2023-04-17] MEDS: CYCLOBENZAPRINE 10 MG TAB PO SCH (20:45)
[2023-04-18] MEDS: AMPICILLIN-SULBACTAM 3 GM in SODIUM CHLORIDE 0.9% 100 ML IVPB SCH ×3 (03:37→17:45)
[2023-04-18 03:41] VITALS: RESP 16
[2023-04-18 03:45] LABS: Glucose,Whole Blood 95 mg/dL (70-110)
[2023-04-18] MEDS: INSULIN ASPART (NovoLOG) 100 UNIT/ML VIAL SQ SCH ×8 (07:11→17:23)
[2023-04-18] MEDS: PANTOPRAZOLE 40 MG TABLET PO SCH (07:11)
[2023-04-18 07:21] LABS: Glucose,Whole Blood 110 mg/dL (70-110)
[2023-04-18] MEDS: IPRATROPIUM-ALBUTEROL 3 ML NEB INHALATION SCH ×3 (08:33→15:35)
[2023-04-18] MEDS: MAGNESIUM OXIDE 400 MG TAB PO SCH (09:19)
[2023-04-18] MEDS: PREGABALIN 75 MG CAP PO SCH (09:19)
[2023-04-18] MEDS: POTASSIUM CHLORIDE ER 10 MEQ TAB.ER.PRT PO SCH (09:19)
[2023-04-18] MEDS: metFORMIN 500 MG TAB PO SCH (09:19)
[2023-04-18] MEDS: DAPAGLIFLOZIN PROPANEDIOL 10 MG TABLET PO SCH (09:20)
[2023-04-18] MEDS: allopurinoL 100 MG TAB PO SCH (09:20)
[2023-04-18] MEDS: FENOFIBRATE 160 MG TAB PO SCH (09:20)
[2023-04-18] MEDS: predniSONE 20 MG TAB PO SCH (09:20)
[2023-04-18] MEDS: METOPROLOL TARTRATE 12.5 MG TAB PO SCH (09:20)
[2023-04-18] MEDS: NICOTINE 21MG/24HR PATCH TRANSDERM SCH (09:20)
[2023-04-18] MEDS: GLIMEPIRIDE 4 MG TAB PO SCH (09:20)
[2023-04-18] MEDS: INSULIN DETEMIR (LEVEMIR) 100 UNIT/ML SYR SQ SCH (09:20)
[2023-04-18] MEDS: ERGOCALCIFEROL 1,250 MCG (50,000 IU) CAPSULE PO SCH (09:20)
[2023-04-18] MEDS: FUROSEMIDE 40 MG TAB PO SCH ×2 (09:20→17:23)
[2023-04-18] MEDS: ASPIRIN 325 MG TAB PO SCH (09:20)
[2023-04-18] MEDS: HYDROcodone/APAP 5-325MG 1 EACH TAB PO PRN (09:30)
[2023-04-18 11:08] VITALS: TEMP 98.4
[2023-04-18 11:54] LABS: Glucose,Whole Blood 323 mg/dL (70-110)
--- NOTE | 2023-04-18 13:53 | P.PN ---
Subjective Progress Note Date: 04/18/23 62-year-old female patient, known history of COPD, maintain on home oxygen, comes into the hospital because of some altered mentation and shortness of breath. The patient was apparently hypoxic with a pulse ox of 40% on room air oxygen and his symptoms the patient was quite lethargic and obtunded. Currently she is on 4 L and she is awake and alert and communicating. She has had similar hospital admissions where she presented hospital because of altered mentation. Neuro workup has been done. No evidence of any CVA. She was considered to have seizures although this has not been officially confirmed the patient admitted on [facility]. It is very much likely that her encephalopathy is related to hypoxemic events. during this current admission, the patient was given a CT angiogram that showed no evidence of any pulmonary embolism. No focal consolidation. There is some bibasilar atelectatic change and the rest of the blood work showed a WBC of 8.0 with a hemoglobin of 11. D-dimer is 0.69. Sodium level was at 142, bicarb is at 40, BUN is at 36 with a creatinine of 0.7. Influenza a and B and RSV and Covid 17-year-old negative. On today's evaluation of 04/10/2023,and the patient's shortness of breath. Patient is improving. I was told that she is having episodes of confusion. Nevertheless, at the time of my evaluation, the patient was appropriate. She is on bronchodilators and steroids. Her white cycles of 19.4 with a hemoglobin of 12 BUN is 35 with a creatinine of 0.7 and a sodium level is 143. The cultures are negative. The patient is seen today 04/11/2023 in follow-up on the selective care unit. She is currently sitting up in bed. Awake and alert. She is having issues with episodes of confusion still today. She had her oxygen off and her O2 saturations were in the 70s. On the back on 4 L nasal cannula with O2 saturation 92%. Preliminary blood culture positive for anaerobic gram-positive bacilli. Blood glucose 375. She is currently on azithromycin. The patient is seen today 04/12/2023 in follow-up on the selective care unit. She is currently resting comfortably in bed. Awake and alert in no acute distress. Still requiring 5 L high flow nasal cannula to maintain O2 saturations in the 90s. She is continued on cefepime. Blood cultures showing C lostridium perfringens. White count 19.2. Hemoglobin 11.6. Platelets 160. Sodium 140. Potassium 4.3. Bicarb 43. BUN 39. Creatinine 0.76. Glucose 249. Remains on DuoNeb inhalations, IV Solu-Medrol. Remains on oral diuretics. Currently in a -1.2 L balance. Computed tomography scan of the abdomen and pelvis pending. The patient is seen today 04/13/2023 in follow-up on the selective care unit. She is currently sitting up in a chair at the bedside. Awake and alert in no acute distress. Chest x-ray shows similar cardiomegaly with pulmonary vascular congestion and a small right pleural effusion. Computed tomography scan of the abdomen and pelvis revealed no evidence for abscess, free air or inflammatory process. Blood culture was positive for Clostridium perfringens. White count 14.7. Hemoglobin 11.5. Platelets 138. Sodium 138. Potassium 4.0. Bicarb 43. BUN 51. Creatinine 0.86. Glucose 346. She is currently on Unasyn. Remains on bronchodilators, IV Solu-Medrol, oral diuretics. Currently in a -1.4 L balance. The patient is seen today 04/15/2023 in follow-up on the selective care unit. She is currently sitting up in a chair at the bedside. We will alert in no acute distress. Maintaining O2 saturations in the 90s on 5 L/m per nasal cannula. She is continued on DuoNeb inhalations, IV Solu-Medrol. NicoDerm patch in place. Blood culture positive for Clostridium perfringens. Antibiotics in the form of Unasyn. Chest x-ray reveals hypoventilatory changes. Mild cardiomegaly. Some pulmonary vascular congestion. White count 15.6. Hemoglobin 12.3. Platelets 174. Sodium 140. Potassium 3.8. Bicarb 46. BUN 60. Creatinine 1.10. Glucose 125. The patient is seen today 04/16/2023 in follow-up on the selective care unit. She is currently sitting up in bed. Awake and alert in no acute distress. Maintaining good O2 saturations in the 90s on 5 L/m per nasal cannula. Initial blood culture positive for Clostridium perfringens. Follow-up blood cultures revealing no growth. White count 14.3. Hemoglobin 11.9. Platelets 165. Sodium 138. Potassium 3.7. Bicarb 44. BUN 60. Creatinine 0.96. Glucose 161. She remains on antibiotics in the form of Unasyn. Continued on bronchodilators and steroids. NicoDerm patch in place. The patient is seen today 04/17/2023 in follow-up on the selective care unit. Currently sitting up at the bedside. Awake and alert in no acute distress. Maintaining O2 saturations in the 90s on 5 L/m per nasal cannula. She still has a loose nonproductive cough. Today with some wheezing. Follow-up blood culture reveals no growth. Blood sugar 132. She remains on antibiotics in the form of Unasyn. Continued on bronchodilators and steroids. NicoDerm patch in place. The patient is seen today 04/18/2023 in follow-up on the selective care unit. She is currently sitting up in bed. Awake and alert in no acute distress. Maintaining good O2 saturations in the mid 90s on 5 L/m per nasal cannula. Denies any worsening shortness of breath, cough or congestion. She still has some dyspnea with conversation. Dyspnea with minimal exertion. Follow-up blood cultures revealed no growth. She remains on Unasyn. Continued on bronchodilators and prednisone. Remains on oral diuretics. NicoDerm patch in place. Objective - Vital Signs Vital signs: Vital Signs Temp 98.4 F 04/18/23 08:00 Pulse 92 04/18/23 11:53 Resp 16 04/18/23 08:00 BP 129/66 04/18/23 08:00 Pulse Ox 96 04/18/23 08:34 FiO2 40 04/11/23 21:09 Intake & Output 04/17/23 04/18/23 04/18/23 18:59 06:59 18:59 Intake Total 780 180 Output Total 1500 1 Balance -720 179 Weight 84 kg Intake: Oral 780 180 Output: Urine 1500 Urine/Stool Mix 1 Other: Voiding Method Toilet Toilet # Voids 1 2 - Exam GENERAL EXAM: Alert, pleasant 62-year-old female, on 5 L nasal cannula, comfortable in no apparent distress. HEAD: Normocephalic. EYES: Normal reaction of pupils, equal size. NOSE: Clear with pink turbinates. THROAT: No erythema or exudates. NECK: No masses, no JVD. CHEST: No chest wall deformity. LUNGS: Equal air entry with faint crackles in the posterior bases. End expiratory wheeze. CVS: S1 and S2 normal with no audible murmur, regular rhythm. ABDOMEN: No hepatosplenomegaly, normal bowel sounds, no guarding or rigidity. SPINE: No scoliosis or deformity SKIN: No rashes CENTRAL NERVOUS SYSTEM: Expressive aphasia, no significant weakness noted. No focal deficits, tone is normal in all 4 extremities. EXTREMITIES: There is no peripheral edema. No clubbing, no cyanosis. Peripheral pulses are intact. - Labs CBC & Chem 7: 04/16/23 07:42 04/16/23 07:42 Labs: Abnormal Lab Results - Last 24 Hours (Table) 04/17/23 04/17/23 04/18/23 Range/Units 16:41 19:43 11:52 POC Glucose (mg/dL) 448 H 319 H 323 H (70-110) mg/dL Assessment and Plan Assessment: Acute exacerbation of chronic obstructive pulmonary disease, no evidence of pneumonia. The patient is a chronic smoker and she is oxygen dependent. CT angiogram ruled out central pulmonary embolism. There is evidence of cardiomegaly. Mild pulmonary vascular congestion. Bilateral atelectasis. No focal lobar consolidation. Currently on oral Lasix Acute on chronic hypoxemic respiratory failure, currently on 5 L of O2 nasal cannula Altered mental status. Most likely this is related to the underlying hypoxemia and the patient was severely hypoxic prior to her hospital admission, improved awake and alert Bacteremia secondary to Clostridium perfringens, currently on Unasyn Mild transaminitis of unclear etiology Chronic and ongoing tobacco dependence History of diabetes mellitus History of hyperlipidemia Hypertension Osteoarthritis. History of gout Plan: The patient was seen and evaluated Medications reviewed Continue oxygen at 5 L/m per nasal cannula Antibiotic coverage per ID service Continued on bronchodilators, prednisone taper Again educated regarding the importance of complete smoking cessation NicoDerm patch in place Plan is for home with home care Antibiotics per ID services I have personally seen and examined the patient, performed the documentation and the assessment and plan as written. Number of minutes spent on the visit: 10.
[2023-04-18 14:47] VITALS: BP 117/65
[2023-04-18 16:17] LABS: Glucose,Whole Blood 181 mg/dL (70-110)
[2023-04-18 17:48] VITALS: PULSE 94
--- NOTE | 2023-04-18 23:26 | P.DS ---
Providers Date of admission: 04/08/23 22:53 Attending physician: Arthur Ponce MD Consults: 04/08/23 22:53 Consult Physician Routine Consulting Provider: Subha Esquivel Consult Reason/Comments: CHF, COPD exacerbation Do you want consulting provider notified?: Yes 04/12/23 09:35 Consult Physician Routine Consulting Provider: Nelida Francis Consult Reason/Comments: Bacteremia Do you want consulting provider notified?: Yes Primary care physician: Shun Simmons [facility] Course: Final Diagnosis Acute COPD exacerbation, Tracheobronchitis Acute on chronic hypoxemic hypercapnic respiratory failure baseline 2 L oxygen Sepsis and bacteremia with Clostridium perfringens Acute Metabolic Encephalopathy, resolved likely due to hypoxemia Elevated D-Dimer, CTA negative for pulmonary embolism Chronic and ongoing tobacco dependence Diabetes Mellitus type 2 with hyperglycemia History of hyperlipidemia Hypertension Osteoarthritis. History of gout Seziure disorder Full Code Discharge Disposition Patient is stable for discharge home with homecare consultation. Patient will complete course of oral antibiotics with augmentin twice a day for 7 days and follow up with Dr. Francis on discharge. Patient to complete oral prednisone burst and taper and follow up with pulmonary on discharge as well. Patient has been weaned down to 3L of oxygen via nasal cannula which patient wears 2 to 3 L of oxygen at home as needed. Blood glucose has remained elevated with A1C of 8.7 in addition to oral agents patient will be discharged on levemir BID and recommend to monitor blood glucose to keep log for f/u with PCP on discharge. Patient to continue on nicotine patch taper at 21 mg for 4 additional days and to transition to the 14 mg patch. Patient has been started on metoprolol 12.5 mg BID. Lasix has been increased to twice a day on discharge. Recommend to repeat labs in 2 to 3 days. Follow up with PCP Dr. Shun Simmons in 1 to 2 days. Hospital Course This is a pleasant 62 year old female with medical history of COPD, chronic hypoxic respiratory failure oxygen dependent, current smoker, hypertension, diabetes mellitus and seizure disorder. Patient presents to the hospital with altered mentation and shortness of breath. Patient was admitted for acute COPD exacerbation and started on IV steroids with pulmonary consultation. chest CT angiography performed on admission which reveals no central pulmonary embolism, there is mild pulmonary vascular congestion. proBNP 4000. Negative for covid, influenza or RSV. Venous blood gas reveals hypercapnia and patient was treated with BiPAP. Patient did not tolerate the BIPAP well and was continued on 4-5 L of oxygen via nasal cannula. The BiPAP did irritate the patients creating excoriation to the left cheek. Patients blood cultures came back showing gram positive and finalized to clostridium perfringens which patient was treated in the hospital with IV unasyn and infectious disease was consulted. Repeat blood culture is negative and patient has been recommended for short course of oral augmentin to complete antibiotic therapy. Patient did have abdominal pelvis CT done to rule out intra-abdominal source of infection which is negative for abscess, free air or inflammatory process to acct for symptoms. There is severe degenerative disc disease throughout the lumbar spine. correlate for basilar interstitial pneumonitis. ID felt bacteremia from abdominal source as patient was constipated on admission which has resolved. Currently alert x 3 and reporting improved shortness of breath. Has scattered coarse ronchi throughout no wheezing or crackles noted on exam. S1 S2 auscultated, abdomen is currently soft and nontender. patient denies nausea, vomiting or diarrhea and has been tolerating diet. Patient is weaned from 5L down to 2-3L of oxygen maintaining saturations of 91-92%. Patient was initially recommended for subacute rehab, had clinically improved and less SOB with activity and patient able to perform transfer with supervision and able to tolerate activity and safe for DC home with homecare services. Discharge home with the above mentioned recommendations. Please see medication reconciliation for a list of current medication. Thank you for allowing us to participate in the care of this patient. The impression and plan of care has been dictated by Marla Lopez, Nurse Practitioner as directed. Dr. Elena MD I have performed a history and physical examination and medical decision making of this patient, discussed the same with the dictator, and agree with the dictators assessment and plan as written, documented as a scribe. Based on total visit time, I have performed more than 50% of this visit. Patient Condition at Discharge: Stable Plan - Discharge Summary Discharge Rx Participant: Yes New Discharge Prescriptions: New Amoxic-Pot Clav 875-125Mg [Augmentin 875-125] 1 tab PO Q12HR 7 Days #14 tab predniSONE [Deltasone] 40 mg PO DIRECTED 10 Days #30 tab Insulin Detemir [Levemir Flexpen] 8 units SQ BID #3 each Metoprolol Tartrate [Lopressor] 12.5 mg PO BID #60 tab Nicotine 21Mg/24Hr Patch [Habitrol] 1 patch TRANSDERM DAILY #4 patch Continue Cyclobenzaprine [Flexeril] 10 mg PO HS Omeprazole [PriLOSEC] 20 mg PO DAILY Fenofibrate 160 mg PO DAILY allopurinoL [Allopurinol] 100 mg PO DAILY Glimepiride [Amaryl] 8 mg PO DAILY rOPINIRole HCL [Requip] 0.25 mg PO HS Atorvastatin [Lipitor] 80 mg PO HS Ergocalciferol (Vitamin D2) [Drisdol (50,000 Iu)] 1,250 mcg PO MO levETIRAcetam [Keppra] 1,500 mg PO BID HYDROcodone/APAP 5-325MG [[place] 5-325] 1 tab PO Q6HR PRN PRN Reason: Pain Triamcinolone 0.1% Cream [Kenalog 0.1% Cream] 1 applicatio TOPICAL BID Potassium Chloride 10 meq PO DAILY Pregabalin [Lyrica] 150 mg PO BID Magnesium Oxide [Magox 400] 400 mg PO BID metFORMIN HCL [Glucophage] 1,000 mg PO BID Empagliflozin [Jardiance] 25 mg PO DAILY Changed Furosemide [Lasix] 40 mg PO 0900,1600 #60 tab Discharge Medication List Cyclobenzaprine [Flexeril] 10 mg PO HS 07/11/14 [History] Omeprazole [PriLOSEC] 20 mg PO DAILY 08/05/14 [History] Fenofibrate 160 mg PO DAILY 05/27/16 [History] allopurinoL [Allopurinol] 100 mg PO DAILY 05/27/16 [History] Glimepiride [Amaryl] 8 mg PO DAILY 06/28/17 [History] rOPINIRole HCL [Requip] 0.25 mg PO HS 06/02/18 [History] Atorvastatin [Lipitor] 80 mg PO HS 01/21/22 [History] Empagliflozin [Jardiance] 25 mg PO DAILY 01/21/22 [History] Ergocalciferol (Vitamin D2) [Drisdol (50,000 Iu)] 1,250 mcg PO MO 01/21/22 [History] Magnesium Oxide [Magox 400] 400 mg PO BID 01/21/22 [History] Pregabalin [Lyrica] 150 mg PO BID 01/21/22 [History] metFORMIN HCL [Glucophage] 1,000 mg PO BID 01/21/22 [History] HYDROcodone/APAP 5-325MG [Seno[place] 5-325] 1 tab PO Q6HR PRN 04/08/23 [History] Potassium Chloride 10 meq PO DAILY 04/08/23 [History] Triamcinolone 0.1% Cream [Kenalog 0.1% Cream] 1 applicatio TOPICAL BID 04/08/23 [History] levETIRAcetam [Keppra] 1,500 mg PO BID 04/08/23 [History] Amoxic-Pot Clav 875-125Mg [Augmentin 875-125] 1 tab PO Q12HR 7 Days #14 tab 04/18/23 [Rx] Furosemide [Lasix] 40 mg PO 0900,1600 #60 tab 04/18/23 [Rx] Insulin Detemir [Levemir Flexpen] 8 units SQ BID #3 each 04/18/23 [Rx] Metoprolol Tartrate [Lopressor] 12.5 mg PO BID #60 tab 04/18/23 [Rx] Nicotine 21Mg/24Hr Patch [Habitrol] 1 patch TRANSDERM DAILY #4 patch 04/18/23 [Rx] predniSONE [Deltasone] 40 mg PO DIRECTED 10 Days #30 tab 04/18/23 [Rx] Follow up Appointment(s)/Referral(s): Nader Patel DO [Doctor of Osteopathic Medicine] - 04/27/23 9:00 am [facility], [NON-STAFF] - Shun Simmons DO [Primary Care Provider] - 1-2 days Nelida Francis MD [STAFF PHYSICIAN] - 05/03/23 3:00 pm Ambulatory/Diagnostic Orders: Basic Metabolic Panel [LAB.AMB] Time Frame: 3 Days, Location: None Selected Complete Blood Count w/diff [LAB.AMB] Time Frame: 3 Days, Location: None Selected Patient Instructions/Handouts: Heart Failure (DC), COPD (Chronic Obstructive Pulmonary Disease) (DC) Activity/Diet/Wound Care/Special Instructions: Continue oral antibiotics for 7 days Complete steroid burst and taper Repeat labs in 2 to 3 days Continue incentive spirometer and continue oxygen support wean as tolerated Monitor pulse oximeter and keep log for follow up Continue to monitor blood glucose twice a day or as previous and keep log for follow up with PCP. Levemir has been added for glycemic control subcutaneous injection twice a day morning and at night (12 hrs apart). Monitor for hypoglycemia Cleanse area with alcohol prior to the Subcuteanous injection. Appropriate sites included 2 in out from the umbilicus in diameter/lower abdomen, in the back of the arm into the fat/tissue layer. [place] for the levemir pen are single use, do not reuse and dispose of as appropriate, your pharmacy can guide on the protocol. Follow up with pulmonary in the office Follow up with your PCP Dr Simmons on discharge. Discharge/Stand Alone Forms: Who Do I Call?, Community Resources, Personal Principal Consulting Engineer Discharge Disposition: HOME SELF-CARE
== END 2023-04-18 18:06 | disposition home health service (06) | DRG 720 ==
LOC: EC 18:17 → 3SCARD 22:53
PROVIDERS: ADMIT Internal Medicine; ATTEND Internal Medicine
PROC: 5A09357 Assistance with Respiratory Ventilation, Less than 24 Consecutive Hours, Continuous Positive Airway Pressure (ICD-10-PCS; principal; 2023-04-11)
DX: A41.4 Sepsis due to anaerobes (principal); B96.7 Clostridium perfringens [C. perfringens] as the cause of diseases classified elsewhere; E11.649 Type 2 diabetes mellitus with hypoglycemia without coma; E78.5 Hyperlipidemia, unspecified; E87.6 Hypokalemia; F17.210 Nicotine dependence, cigarettes, uncomplicated; Z99.81 Dependence on supplemental oxygen; G93.41 Metabolic encephalopathy; I50.9 Heart failure, unspecified; I11.0 Hypertensive heart disease with heart failure; K21.9 Gastro-esophageal reflux disease without esophagitis; G40.909 Epilepsy, unspecified, not intractable, without status epilepticus; M19.90 Unspecified osteoarthritis, unspecified site; R65.20 Severe sepsis without septic shock; J20.9 Acute bronchitis, unspecified; J43.9 Emphysema, unspecified; M10.9 Gout, unspecified; J96.22 Acute and chronic respiratory failure with hypercapnia; J96.21 Acute and chronic respiratory failure with hypoxia; R79.1 Abnormal coagulation profile; M51.36 Other intervertebral disc degeneration, lumbar region; H40.9 Unspecified glaucoma; Z20.822 Contact with and (suspected) exposure to COVID-19; Z88.5 Allergy status to narcotic agent; Z71.3 Dietary counseling and surveillance; Z79.84 Long term (current) use of oral hypoglycemic drugs; Z79.899 Other long term (current) drug therapy; Z28.21 Immunization not carried out because of patient refusal
CPT/HCPCS: 36415; 71045; 71046; 71275; 74176; 80048; 80053; 82803; 83036; 83605; 83735; 83880; 84145; 84484; 85025; 85027; 85379; 85610; 85730; 86140; 87040; 87636; 93005; 94640; 94660; 94760; 96374; 96375; 99291; 99406

== ENCOUNTER 2023-05-10 21:33 | Inpatient (IN) | payer OTHER ==
--- NOTE | 2023-05-10 21:51 | ED ---
General Adult HPI - General Stated complaint: SOB Time Seen by Provider: 05/10/23 21:38 - History of Present Illness Initial comments: This patient is 62-year-old woman who presents with complaint that she is feeling like her COPD is flaring up. She states she is short of breath. She has not noted fever or chills. No change in cough. She does have a small amount of sputum at baseline. No leg pain or swelling. No change in urination or bowel movements. No chest pain -: hour(s) Severity scale (1-10): 0 Consistency: constant Improves with: none Worsens with: none Associated Symptoms: shortness of breath - Related Data Home Medications Medication Instructions Recorded Confirmed Cyclobenzaprine [Flexeril] 10 mg PO HS 07/11/14 05/11/23 Omeprazole [PriLOSEC] 20 mg PO DAILY 08/05/14 05/11/23 Fenofibrate 160 mg PO DAILY 05/27/16 05/11/23 allopurinoL [Allopurinol] 100 mg PO DAILY 05/27/16 05/11/23 Glimepiride [Amaryl] 8 mg PO DAILY 06/28/17 05/11/23 rOPINIRole HCL [Requip] 0.25 mg PO HS 06/02/18 05/11/23 Atorvastatin [Lipitor] 80 mg PO HS 01/21/22 05/11/23 Empagliflozin [Jardiance] 25 mg PO DAILY 01/21/22 05/11/23 Ergocalciferol (Vitamin D2) 1,250 mcg PO MO 01/21/22 05/11/23 [Drisdol (50,000 Iu)] Magnesium Oxide [Magox 400] 400 mg PO BID 01/21/22 05/11/23 Pregabalin [Lyrica] 150 mg PO BID 01/21/22 05/11/23 metFORMIN HCL [Glucophage] 1,000 mg PO BID 01/21/22 05/11/23 HYDROcodone/APAP 5-325MG [[place] 1 tab PO Q6HR PRN 04/08/23 05/11/23 5-325] Potassium Chloride 10 meq PO DAILY 04/08/23 05/11/23 Triamcinolone 0.1% Cream [Kenalog 1 applic TOPICAL BID 04/08/23 05/11/23 0.1% Cream] levETIRAcetam [Keppra] 1,500 mg PO BID 04/08/23 05/11/23 Furosemide [Lasix] 40 mg PO BID@0900,1600 05/11/23 05/11/23 Previous Rx's Medication Instructions Recorded Insulin Detemir [Levemir Flexpen] 8 units SQ BID #3 each 04/18/23 Metoprolol Tartrate [Lopressor] 12.5 mg PO BID #60 tab 04/18/23 Nicotine 21Mg/24Hr Patch [Habitrol] 1 patch TRANSDERM DAILY #4 patch 04/18/23 Budesonide-Formot 160-4.5 Mcg 2 puff INHALATION RT-BID 30 Days 05/13/23 [Symbicort 160-4.5 Mcg Inhaler] #1 each methylPREDNISolone Dose Pack 4 mg PO DIRECTED #21 tab 05/13/23 [Medrol Dose Pack] Allergies Allergy/AdvReac Type Severity Reaction Status Date / Time codeine AdvReac Severe Abdominal Verified 05/11/23 06:52 Pain Review of Systems ROS Statement: Those systems with pertinent positive or pertinent negative responses have been documented in the HPI. ROS Other: All systems not noted in ROS Statement are negative. Constitutional: Denies: fever, chills Respiratory: Reports: cough, dyspnea, wheezes. Denies: hemoptysis Cardiovascular: Denies: chest pain, palpitations, orthopnea, edema, syncope Gastrointestinal: Denies: abdominal pain, vomiting, diarrhea Genitourinary: Denies: dysuria Skin: Denies: rash Neurological: Denies: headache, weakness Past Medical History Past Medical History: COPD, Diabetes Mellitus, Eye Disorder, GERD/Reflux, Hyperlipidemia, Hypertension, Osteoarthritis (OA) Additional Past Medical History / Comment(s): glaucoma. "Knees have been giving out." DDD. gout, lower back and left hip pain History of Any Multi-Drug Resistant Organisms: None Reported Past Surgical History: Back Surgery, Section, Cholecystectomy, Tubal Ligation Additional Past Surgical History / Comment(s): MARBIN PLACED FOR SCOLIOSIS as child. mult left breast biopsy, Past Anesthesia/Blood Transfusion Reactions: No Reported Reaction Past Psychological History: No Psychological Hx Reported Additional Psychological History / Comment(s): . Smoking Status: Current every day smoker Past Alcohol Use History: None Reported Additional Past Alcohol Use History / Comment(s): Has been smoking since 14 yrs old, > 1 PPD. Past Drug Use History: None Reported Additional Drug Use History / Comment(s): . - Past Family History Brother(s) Family Medical History: Diabetes Mellitus Mother Family Medical History: Cancer Father Family Medical History: Cancer General Exam General appearance: alert, in no apparent distress Head exam: Present: atraumatic, normocephalic Eye exam: Present: normal appearance. Absent: scleral icterus, conjunctival injection Neck exam: Present: normal inspection Respiratory exam: Present: wheezes. Absent: normal lung sounds bilaterally, respiratory distress, rales, rhonchi, stridor, accessory muscle use, decreased breath sounds, prolonged expiratory Cardiovascular Exam: Present: regular rate, normal rhythm, normal heart sounds. Absent: systolic murmur, diastolic murmur, rubs, gallop GI/Abdominal exam: Present: soft. Absent: distended, tenderness, guarding, rebound, rigid, mass Extremities exam: Present: normal inspection Back exam: Present: normal inspection. Absent: CVA tenderness (R), CVA tenderness (L) Neurological exam: Present: alert Skin exam: Present: warm, dry, intact, normal color. Absent: rash Course Vital Signs 05/10/23 05/10/23 05/10/23 21:59 23:24 23:45 Temperature 98 F Pulse Rate 97 96 96 Pulse Rate [ Pulse Oximetery ] Respiratory 20 Rate Blood Pressure 130/78 Blood Pressure [Left Arm] O2 Sat by Pulse 92 L Oximetry 05/11/23 05/11/23 05/11/23 00:14 00:30 01:00 Temperature Pulse Rate 93 Pulse Rate [ Pulse Oximetery ] Respiratory 20 Rate Blood Pressure Blood Pressure [Left Arm] O2 Sat by Pulse 86 L 93 L 94 L Oximetry 05/11/23 05/11/23 05/11/23 01:30 02:00 02:30 Temperature Pulse Rate 94 92 91 Pulse Rate [ Pulse Oximetery ] Respiratory Rate Blood Pressure 149/97 143/81 118/76 Blood Pressure [Left Arm] O2 Sat by Pulse 96 93 L Oximetry 05/11/23 05/11/23 05/11/23 03:00 03:30 04:00 Temperature Pulse Rate 89 84 Pulse Rate [ Pulse Oximetery ] Respiratory 20 Rate Blood Pressure 127/86 145/87 135/96 Blood Pressure [Left Arm] O2 Sat by Pulse 90 L Oximetry 05/11/23 05/11/23 05/11/23 04:30 05:00 05:30 Temperature Pulse Rate 86 85 93 Pulse Rate [ Pulse Oximetery ] Respiratory 18 Rate Blood Pressure 159/85 139/81 134/92 Blood Pressure [Left Arm] O2 Sat by Pulse 70 L Oximetry 05/11/23 05/11/23 06:18 07:00 Temperature 98.3 F Pulse Rate 87 Pulse Rate [ 97 Pulse Oximetery ] Respiratory 18 22 Rate Blood Pressure 138/81 Blood Pressure 141/88 [Left Arm] O2 Sat by Pulse 94 L 98 Oximetry EKG Findings - EKG Comments: EKG Findings:: The patient has a tachycardic supraventricular rhythm which appears to be sinus with ectopic atrial beats. - EKG Results: EKG: interpreted by ERMD - Blocks, [place], Hypertrophy, ST Abn: Repolarization changes or abnormalities: nonspecific abnormality, ST segment, and/or T wave Medical Decision Making - Medical Decision Making The patient had chest x-ray which I interpreted as showing a possible pneumonia, no infiltrate or congestive heart failure. Was pt. sent in by a medical professional or institution (, PA, EPIC PRELUDE ANALYST, urgent care, hospital, or usp...) When possible be specific @ -[No] Did you speak to anyone other than the patient for history (EMS, parent, family, police, friend...)? What history was obtained from this source @ -[No] Did you review nursing and triage notes (agree or disagree)? Why? @ -[I reviewed and agree with nursing and triage notes] Were old charts reviewed (outside hosp., previous admission, EMS record, old EKG, old radiological studies, urgent care reports/EKG's, usp records)? Report findings @ -[No old charts were reviewed] Differential Diagnosis (chest pain, altered mental status, abdominal pain women, abdominal pain men, vaginal bleeding, weakness, fever, dyspnea, syncope, headache, dizziness, GI bleed, back pain, seizure, CVA, palpatations, mental health, musculoskeletal)? @ -[Differential Dyspnea: Coronary syndrome, arrhythmia, tamponade, asthma, COPD, pulmonary embolism, pneumonia, pneumothorax, pulmonary effusion, anaphylaxis, diabetic ketoacidosis, flailed chest, pulmonary contusion, diaphragmatic rupture, anemia, neuromuscular, this is not meant to be an all-inclusive list. EKG interpreted by me (3pts min.). @ -[As above] X-rays interpreted by me (1pt min.). @ -As above CT interpreted by me (1pt min.). @ -[None done] U/S interpreted by me (1pt. min.). @ -[None done] What testing was considered but not performed or refused? (CT, X-rays, U/S, labs)? Why? @ -[None] What meds were considered but not given or refused? Why? @ -[None] Did you discuss the management of the patient with other professionals (professionals i.e. Dr., PA, EPIC PRELUDE ANALYST, lab, RT, psych nurse, perinatal social worker, patrol sergeant, teacher, food safety officer, correctional case manager)? Give summary @ -[Case is discussed with admitting physician service Was smoking cessation discussed for >3mins.? @ -[No] Was critical care preformed (if so, how long)? @ -[No] Were there social determinants of health that impacted care today? How? (Homelessness, low income, unemployed, alcoholism, drug addiction, transportation, low edu. Level, literacy, decrease access to med. care, shelter, rehab)? @ -[No] Was there de-escalation of care discussed even if they declined (Discuss DNR or withdrawal of care, Hospice)? DNR status @ -[No] What co-morbidities impacted this encounter? (DM, HTN, Smoking, COPD, CAD, Cancer, CVA, ARF, Chemo, Hep., AIDS, mental health diagnosis, sleep apnea, morbid obesity)? @ -[None] Was patient admitted / discharged? Hospital course, mention meds given and route, prescriptions, significant lab abnormalities, going to OR and other pertinent info. @ -[Patient is evaluated and will be admitted for COPD exacerbation, based on the x-ray there may be pneumonia as well, and the patient started on antibiotic therapy. Patient be admitted for further treatment and for pulmonology consultation. Undiagnosed new problem with uncertain prognosis? @ -[No] Drug Therapy requiring intensive monitoring for toxicity (Heparin, Nitro, Insulin, Cardizem)? @ -[No] Were any procedures done? @ -[No] Diagnosis/symptom? @ -[Acute exacerbation of COPD Possible pneumonia, acute Acute, or Chronic, or Acute on Chronic? @ -[ Uncomplicated (without systemic symptoms) or Complicated (systemic symptoms)? @ -[Uncomplicated Side effects of treatment? @ -[No] Exacerbation, Progression, or Severe Exacerbation? @ -[No] Poses a threat to life or bodily function? How? (Chest pain, [place], ID, pneumonia, PE, COPD, DKA, ARF, appy, cholecystitis, CVA, Diverticulitis, Homicidal, [place]ayan icidal, threat to staff... and all critical care pts) @ -[No] - Lab Data Result diagrams: 05/12/23 06:46 05/13/23 05:29 Lab Results 05/10/23 05/10/23 05/10/23 Range/Units 21:35 21:59 21:59 WBC 6.4 (3.8-10.6) k/uL RBC 5.07 (3.80-5.40) m/uL Hgb 11.2 L (11.4-16.0) gm/dL Hct 39.0 (34.0-46.0) % MCV 76.9 L (80.0-100.0) fL MCH 22.0 L (25.0-35.0) pg MCHC 28.6 L (31.0-37.0) g/dL RDW 22.2 H (11.5-15.5) % Plt Count 148 L (150-450) k/uL MPV 8.6 Neutrophils % (Manual) 59 % Band Neuts % (Manual) 2 % Lymphocytes % (Manual) 31 % Monocytes % (Manual) 8 % Eosinophils % (Manual) 1 % Neutrophils # (Manual) 3.90 (1.3-7.7) k/uL Lymphocytes # (Manual) 1.98 (1.0-4.8) k/uL Monocytes # (Manual) 0.51 (0-1.0) k/uL Eosinophils # (Manual) 0.06 (0-0.7) k/uL Nucleated RBCs 2 H (0-0) /100 WBC Manual Slide Review Performed Large Platelets Present Polychromasia Present Hypochromasia Marked Poikilocytosis Moderate Anisocytosis Moderate Microcytosis Moderate PT 12.7 H (9.0-12.0) sec INR 1.2 H (<1.2) APTT 22.3 (22.0-30.0) sec VBG pH 7.48 H (7.31-7.41) VBG pCO2 54 H (37-51) mmHg VBG HCO3 40 H (24-28) mmol/L Sodium (137-145) mmol/L Potassium (3.5-5.1) mmol/L Chloride (98-107) mmol/L Carbon Dioxide (22-30) mmol/L Anion Gap mmol/L BUN (7-17) mg/dL Creatinine (0.52-1.04) mg/dL Est GFR (CKD-EPI)AfAm (>60 ml/min/1.73 sqM) Est GFR (CKD-EPI)NonAf (>60 ml/min/1.73 sqM) Glucose (74-99) mg/dL Plasma Lactic Acid Jon (0.7-2.0) mmol/L Calcium (8.4-10.2) mg/dL Total Bilirubin (0.2-1.3) mg/dL AST (14-36) U/L ALT (4-34) U/L Alkaline Phosphatase (38-126) U/L Troponin I (0.000-0.034) ng/mL NT-Pro-B Natriuret Pep pg/mL Total Protein (6.3-8.2) g/dL Albumin (3.5-5.0) g/dL Serum Alcohol mg/dL 05/10/23 05/10/23 05/10/23 Range/Units 21:59 21:59 21:59 WBC (3.8-10.6) k/uL RBC (3.80-5.40) m/uL Hgb (11.4-16.0) gm/dL Hct (34.0-46.0) % MCV (80.0-100.0) fL MCH (25.0-35.0) pg MCHC (31.0-37.0) g/dL RDW (11.5-15.5) % Plt Count (150-450) k/uL MPV Neutrophils % (Manual) % Band Neuts % (Manual) % Lymphocytes % (Manual) % Monocytes % (Manual) % Eosinophils % (Manual) % Neutrophils # (Manual) (1.3-7.7) k/uL Lymphocytes # (Manual) (1.0-4.8) k/uL Monocytes # (Manual) (0-1.0) k/uL Eosinophils # (Manual) (0-0.7) k/uL Nucleated RBCs (0-0) /100 WBC Manual Slide Review Large Platelets Polychromasia Hypochromasia Poikilocytosis Anisocytosis Microcytosis PT (9.0-12.0) sec INR (<1.2) APTT (22.0-30.0) sec VBG pH (7.31-7.41) VBG pCO2 (37-51) mmHg VBG HCO3 (24-28) mmol/L Sodium 141 (137-145) mmol/L Potassium 3.1 L (3.5-5.1) mmol/L Chloride 94 L (98-107) mmol/L Carbon Dioxide 39 H (22-30) mmol/L Anion Gap 8 mmol/L BUN 20 H (7-17) mg/dL Creatinine 0.78 (0.52-1.04) mg/dL Est GFR (CKD-EPI)AfAm >90 (>60 ml/min/1.73 sqM) Est GFR (CKD-EPI)NonAf 81 (>60 ml/min/1.73 sqM) Glucose 158 H (74-99) mg/dL Plasma Lactic Acid Jon 1.2 (0.7-2.0) mmol/L Calcium 8.0 L (8.4-10.2) mg/dL Total Bilirubin 0.5 (0.2-1.3) mg/dL AST 27 (14-36) U/L ALT 17 (4-34) U/L Alkaline Phosphatase 56 (38-126) U/L Troponin I <0.012 (0.000-0.034) ng/mL NT-Pro-B Natriuret Pep pg/mL Total Protein 5.6 L (6.3-8.2) g/dL Albumin 3.4 L (3.5-5.0) g/dL Serum Alcohol <10 mg/dL 05/10/23 Range/Units 21:59 WBC (3.8-10.6) k/uL RBC (3.80-5.40) m/uL Hgb (11.4-16.0) gm/dL Hct (34.0-46.0) % MCV (80.0-100.0) fL MCH (25.0-35.0) pg MCHC (31.0-37.0) g/dL RDW (11.5-15.5) % Plt Count (150-450) k/uL MPV Neutrophils % (Manual) % Band Neuts % (Manual) % Lymphocytes % (Manual) % Monocytes % (Manual) % Eosinophils % (Manual) % Neutrophils # (Manual) (1.3-7.7) k/uL Lymphocytes # (Manual) (1.0-4.8) k/uL Monocytes # (Manual) (0-1.0) k/uL Eosinophils # (Manual) (0-0.7) k/uL Nucleated RBCs (0-0) /100 WBC Manual Slide Review Large Platelets Polychromasia Hypochromasia Poikilocytosis Anisocytosis Microcytosis PT (9.0-12.0) sec INR (<1.2) APTT (22.0-30.0) sec VBG pH (7.31-7.41) VBG pCO2 (37-51) mmHg VBG HCO3 (24-28) mmol/L Sodium (137-145) mmol/L Potassium (3.5-5.1) mmol/L Chloride (98-107) mmol/L Carbon Dioxide (22-30) mmol/L Anion Gap mmol/L BUN (7-17) mg/dL Creatinine (0.52-1.04) mg/dL Est GFR (CKD-EPI)AfAm (>60 ml/min/1.73 sqM) Est GFR (CKD-EPI)NonAf (>60 ml/min/1.73 sqM) Glucose (74-99) mg/dL Plasma Lactic Acid Jon (0.7-2.0) mmol/L Calcium (8.4-10.2) mg/dL Total Bilirubin (0.2-1.3) mg/dL AST (14-36) U/L ALT (4-34) U/L Alkaline Phosphatase (38-126) U/L Troponin I (0.000-0.034) ng/mL NT-Pro-B Natriuret Pep 8520 pg/mL Total Protein (6.3-8.2) g/dL Albumin (3.5-5.0) g/dL Serum Alcohol mg/dL Disposition Clinical Impression: COPD (chronic obstructive pulmonary disease) Narrative: Possible pneumonia Disposition: ADMITTED IP TO THIS HOSP Condition: Fair Is patient prescribed a controlled substance at d/c from ED?: No
[2023-05-10 22:15] LABS: INR 1.2 (<1.2); Partial Thromboplastin Time 22.3 sec (22.0-30.0); Prothrombin Time 12.7 sec (9.0-12.0)
[2023-05-10] MEDS ORDERED: ALBUTEROL NEBULIZED 2.5 MG/3 ML INHALATION STA (22:15)
[2023-05-10] MEDS ORDERED: IPRATROPIUM-ALBUTEROL 3 ML NEB INHALATION STA (22:16)
[2023-05-10 22:19] LABS: ALT 17 U/L (4-34); AST 27 U/L (14-36); African American GFR (CKD) >90 (>60 ml/min/1.73 sqM); Albumin 3.4 g/dL (3.5-5.0); Alcohol <10 mg/dL; Alkaline Phosphatase 56 U/L (38-126); Blood Urea Nitrogen 20 mg/dL (7-17); Chloride 94 mmol/L (98-107); Glucose 158 mg/dL (74-99); Non-African American GFR(CKD) 81 (>60 ml/min/1.73 sqM); Potassium 3.1 mmol/L (3.5-5.1); Sodium 141 mmol/L (137-145); Total Bilirubin 0.5 mg/dL (0.2-1.3); Total Protein 5.6 g/dL (6.3-8.2)
[2023-05-10 22:25] LABS: Anion Gap 8 mmol/L; Carbon Dioxide 39 mmol/L (22-30)
[2023-05-10 22:51] LABS: Anisocytosis Moderate; HGB 11.2 gm/dL (11.4-16.0); Hypochromasia Marked; MCHC 28.6 g/dL (31.0-37.0); MCV 76.9 fL (80.0-100.0); Mean Platelet Volume 8.6; Microcytosis Moderate; Platelet Count 148 k/uL (150-450); Poikilocytosis Moderate; RBC 5.07 m/uL (3.80-5.40); RDW 22.2 % (11.5-15.5)
[2023-05-10] MEDS ORDERED: POTASSIUM CHLORIDE ER 20 MEQ TAB.ER PO STA (23:29)
[2023-05-11 00:01] LABS: VBG PH 7.48 (7.31-7.41)
--- NOTE | 2023-05-11 00:11 | XR ---
EXAMINATION TYPE: XR chest 2V DATE OF EXAM: 05/11/2023 COMPARISON: 04/15/2023 INDICATION: Difficulty breathing TECHNIQUE: Frontal and lateral views of the chest are obtained. FINDINGS: The heart size is prominent. The pulmonary vasculature is normal. There is a posterior infiltrate on the lateral projection. Mild diffuse increased lung markings are o n the frontal projection.. IMPRESSION: 1. Posterior consolidation, correlate for pneumonia. 2. Diffuse increased lung markings on the AP projection. Findings are worsening over the interval. Fo llow-up is recommended. 3. Cardiomegaly
[2023-05-11 00:46] LABS: Band Neutrophils % 2 %; Eosinophils # (M) 0.06 k/uL (0-0.7); Lymphocytes # (M) 1.98 k/uL (1.0-4.8); Monocytes # (M) 0.51 k/uL (0-1.0); Neutrophils % (M) 59 %; Nucleated Red Blood Cells 2 /100 WBC (0-0); Total Cells Counted 200; WBC 6.4 k/uL (3.8-10.6)
[2023-05-11 00:47] LABS: Polychromasia Present
[2023-05-11] MEDS ORDERED: PNEUMONIA PROTOCOL UTILIZED 1 EACH MISC PO PRN (00:47)
[2023-05-11] MEDS ORDERED: IPRATROPIUM-ALBUTEROL 3 ML NEB INHALATION PRN (00:47)
[2023-05-11 00:48] LABS: Large Platelets Present
[2023-05-11 07:40] LABS: VBG PH 7.38 (7.31-7.41)
[2023-05-11] MEDS: ALBUTEROL NEBULIZED 2.5 MG/3 ML INHALATION SCH ×4 (08:39→20:52)
[2023-05-11] MEDS ORDERED: Magnesium Replacement Protocol 1 EACH MISC MISCELLANE PRN (10:41)
[2023-05-11] MEDS ORDERED: Potassium Replacement Protocol 1 EACH MISC MISCELLANE PRN (10:41)
--- NOTE | 2023-05-11 11:32 | HP ---
HISTORY AND PHYSICAL CHIEF COMPLAINT: Shortness of breath. HISTORY OF PRESENT ILLNESS: This is a 62-year-old woman with a past medical history of COPD, was complaining of shortness of breath for the past several days. The chest x-ray showed evidence of CHF also. BNP is also elevated. The patient is receiving IV Lasix. Cardiology and Pulmonary consultation felt there is no history of any fever, rigors, or chills at this time. PAST MEDICAL HISTORY: Reviewed, include COPD, diabetes mellitus type 2. Rest of the history and rest of the chart is also reviewed. MEDICATIONS: Reviewed include Requip. Dose and rest of medications noted. ALLERGIES: Codeine. FAMILY HISTORY: History of cervical cancer in the family. SOCIAL HISTORY: History of smoking. REVIEW OF SYSTEMS: Fourteen-point review is negative except as mentioned earlier. PHYSICAL EXAMINATION: VITAL SIGNS: Pulse is 97, blood pressure 141/80, respirations 20. HEENT: Conjunctivae normal. NECK: No jugular venous distention. CARDIOVASCULAR: S1 and S2. RESPIRATORY: The patient with diffuse scattered rhonchi and crackles. Expiratory wheezing. ABDOMEN: Soft, obese. LEGS: Minimal bilateral leg edema. NERVOUS SYSTEM: No focal deficits. SKIN: No ulcers or rashes. JOINTS: No active deforming arthropathy. LABORATORY DATA: Labs are reviewed. Chest x-ray reviewed personally. VBG reviewed personally. ASSESSMENT: 1. Shortness of breath, possibly multifactorial with chronic obstructive pulmonary disease acute exacerbation and congestive heart failure acute exacerbation. Ejection fraction unknown. 2. Elevated procalcitonin. 3. Hypokalemia. 4. Diabetes mellitus, type 2. 5. Hypertension. 6. Hyperlipidemia. 7. Multiple medical problems. RECOMMENDATION: This is a 62-year-old woman who presented with multiple complex medical problems. We will initiate intensive bronchodilators, IV steroids, broad-spectrum antibiotics, Lasix. Cardiology and Pulmonology consultations and 2D echo with Doppler. Prognosis guarded because of multiple complex medical issues. Further recommendations to follow. See orders for further details. MMODL / IJN: [id number] /
[2023-05-11] MEDS ORDERED: DEXTROSE 50% SYRINGE 50 ML IVP PRN ×4 (12:05→13:39)
[2023-05-11] MEDS: IPRATROPIUM-ALBUTEROL 3 ML NEB INHALATION SCH ×3 (12:14→20:52)
[2023-05-11] MEDS: methylPREDNISolone SOD SUCCI 125 MG/2 ML VIAL IV SCH ×3 (12:24→23:40)
[2023-05-11] MEDS: FUROSEMIDE 10 MG/ML 4 ML VIAL IV SCH ×3 (12:24→23:40)
[2023-05-11 12:46] LABS: Glucose,Whole Blood 488 mg/dL (70-110)
[2023-05-11 14:16] LABS: Glucose,Whole Blood >600 mg/dL (70-110)
[2023-05-11] MEDS ORDERED: INSULIN ASPART (NovoLOG) 100 UNIT/ML VIAL SQ ONE ×2 (14:16→15:32)
--- NOTE | 2023-05-11 14:58 | P.CNPUL ---
History of Present Illness Consult date: 05/11/23 Requesting physician: Lauren Rios Reason for consult: dyspnea, COPD Chief complaint: Shortness of breath History of present illness: This is a very pleasant 62-year-old female patient, known history of COPD, maintain on home oxygen, chronic and ongoing tobacco dependence, diabetes mellitus, hyperlipidemia, hypertension, osteoarthritis, gout. He's had multiple admissions for altered mental status and hypoxemia. She is a poor historian. He was sent into the emergency room yesterday after having complaints of shortness of breath. She states her states that she was not breathing r ight and she seems a bit confused. Chest x-ray shows posterior consolidation, diffuse increased lung markings suggestive of worsening congestion. She has saturation 86% on room air initially. Currently in the 90s on 4 L nasal cannula. White count 6.4. Hemoglobin 11.2. Platelets 148. Sodium 141. Potassium 3.1. Bicarb 39. BUN 20. Creatinine 0.78. Glucose 158. Pro- calcitonin 0.19. Serum alcohol level less than 10. ProBNP 8520. Troponin negative 1. She's been initiated on DuoNeb inhalations, IV Solu-Medrol. Initiated on Lasix 40 mg IV every 8 hours. Heparin for DVT prophylaxis. NicoDerm patch in place. Antibiotics in the form of ceftriaxone and azithromycin. She is seen today in consultation on the regular medical floor. She is awake and alert in no acute distress. Sitting up in bed. Asking to go home. Denies any worsening shortness of breath, cough or congestion. Review of Systems REVIEW OF SYSTEMS: CONSTITUTIONAL: Denies any recent significant weight loss or weight gain. EYES: Denies change in vision. EARS, NOSE, MOUTH, THROAT: Denies headaches, denies sore throat. CARDIOVASCULAR: Denies chest pain, palpitations or syncopal episodes. RESPIRATORY: Positive for shortness of breath, cough, congestion no hemoptysis. GASTROINTESTINAL: Denies change in appetite, denies abdominal pain GENITOURINARY: Denies hematuria, denies infections. MUSKULOSKELETAL: Denies pain, denies swelling. INTEGUMENTARY: Denies rash, denies eczema. NEUROLOGICAL: Denies recent memory loss, no recent seizure activity. PSYCHIATRIC: Denies anxiety, denies depression. HEMATOLOGIC/LYMPHATIC: Denies anemia, denies enlarged lymph nodes. Past Medical History Past Medical History: COPD, Diabetes Mellitus, Eye Disorder, GERD/Reflux, Hyperlipidemia, Hypertension, Osteoarthritis (OA) Additional Past Medical History / Comment(s): glaucoma. "Knees have been giving out." DDD. gout, lower back and left hip pain History of Any Multi-Drug Resistant Organisms: None Reported Past Surgical History: Back Surgery, Section, Cholecystectomy, Tubal Ligation Additional Past Surgical History / Comment(s): MARBIN PLACED FOR SCOLIOSIS as child. mult left breast biopsy, Past Anesthesia/Blood Transfusion Reactions: No Reported Reaction Past Psychological History: No Psychological Hx Reported Additional Psychological History / Comment(s): . Smoking Status: Current every day smoker Past Alcohol Use History: None Reported Additional Past Alcohol Use History / Comment(s): Has been smoking since 14 yrs old, > 1 PPD. Past Drug Use History: None Reported Additional Drug Use History / Comment(s): . - Past Family History Brother(s) Family Medical History: Diabetes Mellitus Mother Family Medical History: Cancer Father Family Medical History: Cancer Medications and Allergies Home Medications Medication Instructions Recorded Confirmed Type Cyclobenzaprine [Flexeril] 10 mg PO HS 07/11/14 05/11/23 History Omeprazole [PriLOSEC] 20 mg PO DAILY 08/05/14 05/11/23 History Fenofibrate 160 mg PO DAILY 05/27/16 05/11/23 History allopurinoL [Allopurinol] 100 mg PO DAILY 05/27/16 05/11/23 History Glimepiride [Amaryl] 8 mg PO DAILY 06/28/17 05/11/23 History rOPINIRole HCL [Requip] 0.25 mg PO HS 06/02/18 05/11/23 History Atorvastatin [Lipitor] 80 mg PO HS 01/21/22 05/11/23 History Empagliflozin [Jardiance] 25 mg PO DAILY 01/21/22 05/11/23 History Ergocalciferol (Vitamin D2) 1,250 mcg PO MO 01/21/22 05/11/23 History [Drisdol (50,000 Iu)] Magnesium Oxide [Magox 400] 400 mg PO BID 01/21/22 05/11/23 History Pregabalin [Lyrica] 150 mg PO BID 01/21/22 05/11/23 History metFORMIN HCL [Glucophage] 1,000 mg PO BID 01/21/22 05/11/23 History HYDROcodone/APAP 5-325MG [[place] 1 tab PO Q6HR PRN 04/08/23 05/11/23 History 5-325] Potassium Chloride 10 meq PO DAILY 04/08/23 05/11/23 History Triamcinolone 0.1% Cream [Kenalog 1 applic TOPICAL BID 04/08/23 05/11/23 History 0.1% Cream] levETIRAcetam [Keppra] 1,500 mg PO BID 04/08/23 05/11/23 History Insulin Detemir [Levemir Flexpen] 8 units SQ BID #3 each 04/18/23 05/11/23 Rx Metoprolol Tartrate [Lopressor] 12.5 mg PO BID #60 tab 04/18/23 05/11/23 Rx Nicotine 21Mg/24Hr Patch [Habitrol] 1 patch TRANSDERM DAILY #4 patch 04/18/23 05/11/23 Rx Furosemide [Lasix] 40 mg PO BID@0900,1600 05/11/23 05/11/23 History Allergies Allergy/AdvReac Type Severity Reaction Status Date / Time codeine AdvReac Severe Abdominal Verified 05/11/23 06:52 Pain Physical Exam Vitals: Vital Signs Temp Pulse Pulse Resp BP BP Pulse Ox 05/11/23 08:50 91 05/11/23 08:41 88 93 L 05/11/23 07:00 98.3 F 97 22 141/88 98 05/11/23 06:18 87 18 138/81 94 L 05/11/23 05:30 93 18 134/92 70 L 05/11/23 05:00 85 139/81 05/11/23 04:30 86 159/85 05/11/23 04:00 135/96 05/11/23 03:30 84 145/87 05/11/23 03:00 89 20 127/86 90 L 05/11/23 02:30 91 118/76 93 L 05/11/23 02:00 92 143/81 96 05/11/23 01:30 94 149/97 05/11/23 01:00 94 L 05/11/23 00:30 93 L 05/11/23 00:14 93 20 86 L 05/10/23 23:45 96 05/10/23 23:24 96 05/10/23 21:59 98 F 97 20 130/78 92 L Intake and Output 05/10/23 05/11/23 05/11/23 22:59 06:59 14:59 Intake Total 118 Balance 118 Intake: Oral 118 Other: Weight 81.647 kg 81.647 kg GENERAL EXAM: Alert, pleasant, confused 62-year-old female, on 4 L nasal cannula, comfortable in no apparent distress. HEAD: Normocephalic. EYES: Normal reaction of pupils, equal size. NOSE: Clear with pink turbinates. THROAT: Edentulous. No erythema or exudates. NECK: No masses, no JVD. CHEST: No chest wall deformity. LUNGS: Equal air entry with coarse rhonchi, diminished. CVS: S1 and S2 normal with no audible murmur, regular rhythm. ABDOMEN: No hepatosplenomegaly, normal bowel sounds, no guarding or rigidity. SPINE: No scoliosis or deformity SKIN: No rashes CENTRAL NERVOUS SYSTEM: No focal deficits, tone is normal in all 4 extremities. EXTREMITIES: There is no peripheral edema. No clubbing, no cyanosis. Peripheral pulses are intact. Results - Laboratory Findings CBC and BMP: 05/10/23 21:59 05/11/23 06:07 PT/INR, D-dimer PT 12.7 sec (9.0-12.0) H 05/10/23 21:59 INR 1.2 (<1.2) H 05/10/23 21:59 Abnormal lab findings: Abnormal Labs 05/10/23 05/10/23 05/10/23 21:35 21:59 21:59 Hgb 11.2 L MCV 76.9 L MCH 22.0 L MCHC 28.6 L RDW 22.2 H Plt Count 148 L Nucleated RBCs 2 H PT 12.7 H INR 1.2 H VBG pH 7.48 H VBG pCO2 54 H VBG HCO3 40 H Potassium Chloride Carbon Dioxide BUN Glucose POC Glucose (mg/dL) Calcium Total Protein Albumin Procalcitonin 05/10/23 05/11/23 05/11/23 21:59 01:33 06:07 Hgb MCV MCH MCHC RDW Plt Count Nucleated RBCs PT INR VBG pH VBG pCO2 66 H VBG HCO3 38 H Potassium 3.1 L Chloride 94 L Carbon Dioxide 39 H BUN 20 H Glucose 158 H POC Glucose (mg/dL) Calcium 8.0 L Total Protein 5.6 L Albumin 3.4 L Procalcitonin 0.19 H 05/11/23 05/11/23 05/11/23 06:07 12:41 14:15 Hgb MCV MCH MCHC RDW Plt Count Nucleated RBCs PT INR VBG pH VBG pCO2 VBG HCO3 Potassium 3.3 L Chloride Carbon Dioxide BUN Glucose POC Glucose (mg/dL) 488 H >600 H Calcium Total Protein Albumin Procalcitonin - Diagnostic Findings Chest x-ray: image reviewed Assessment and Plan Assessment: Acute on chronic hypoxemic respiratory failure secondary to an acute exacerbation of diastolic congestive heart failure Acute on chronic hypoxemic respiratory failure secondary to an acute exac erbation of chronic obstructive pulmonary disease Recent multiple admissions for COPD exacerbations, altered mental status, hypoxemia at home History of oxygen dependent chronic obstructive place disease History of 50 years of chronic and ongoing tobacco dependence Diabetes mellitus Hyperlipidemia Hypertension Osteoarthritis. History of gout Plan: The patient was seen and evaluated Chest x-ray, labs and medications reviewed Continue DuoNeb inhalations, Solu-Medrol Add Symbicort Titrate the oxygen his FiO2 as tolerated Continue antibiotics Continue with IV diuretics Social work regarding recurrent admissions We will continue to follow and make further recommendations based on her cl inical status I have personally seen and examined the patient, performed the documentation and the assessment and plan as written. Number of minutes spent on the visit: 20.
[2023-05-11 15:27] LABS: Glucose,Whole Blood 515 mg/dL (70-110)
[2023-05-11] MEDS ORDERED: INSULIN DETEMIR (LEVEMIR) 100 UNIT/ML SYR SQ STA (15:33)
[2023-05-11 17:23] LABS: Glucose,Whole Blood 257 mg/dL (70-110)
[2023-05-11] MEDS: INSULIN ASPART (NovoLOG) 100 UNIT/ML VIAL SQ SCH ×3 (17:45→21:36)
[2023-05-11] MEDS: metFORMIN 500 MG TAB PO SCH (18:08)
[2023-05-11] MEDS: POTASSIUM CHLORIDE ER 20 MEQ TAB.ER PO SCH ×2 (18:08→19:58)
[2023-05-11 20:19] LABS: Glucose,Whole Blood 244 mg/dL (70-110)
[2023-05-11] MEDS ORDERED: INSULIN DETEMIR (LEVEMIR) 100 UNIT/ML SYR SQ SCH (21:00)
[2023-05-11] MEDS: INSULIN DETEMIR (LEVEMIR) 100 UNIT/ML SYR SQ SCH (21:35)
[2023-05-11] MEDS: PREGABALIN 75 MG CAP PO SCH (21:35)
[2023-05-11] MEDS: MAGNESIUM OXIDE 400 MG TAB PO SCH (21:36)
[2023-05-11] MEDS: ATORVASTATIN 80 MG TAB PO SCH (21:36)
[2023-05-11] MEDS: METOPROLOL TARTRATE 12.5 MG TAB PO SCH (21:36)
[2023-05-11] MEDS: HEPARIN SODIUM,PORCINE/PF 5,000 UNIT/0.5 ML SYRINGE SQ SCH (21:36)
[2023-05-11] MEDS: CYCLOBENZAPRINE 10 MG TAB PO SCH (21:36)
[2023-05-12 06:11] LABS: Glucose,Whole Blood 303 mg/dL (70-110)
[2023-05-12] MEDS: INSULIN DETEMIR (LEVEMIR) 100 UNIT/ML SYR SQ SCH ×2 (06:23→20:57)
[2023-05-12] MEDS: INSULIN ASPART (NovoLOG) 100 UNIT/ML VIAL SQ SCH ×7 (06:23→20:57)
[2023-05-12] MEDS: methylPREDNISolone SOD SUCCI 125 MG/2 ML VIAL IV SCH (06:23)
[2023-05-12] MEDS: PANTOPRAZOLE 40 MG TABLET PO SCH (06:32)
--- NOTE | 2023-05-12 07:02 | XR ---
EXAMINATION TYPE: XR chest 1V portable DATE OF EXAM: 05/12/2023 6:40 AM COMPARISON: Chest radiographs from 05/10/2023 TECHNIQUE: XR chest 1V portable Portable AP radiograph of the chest. CLINICAL INDICATION:Female, 62 years old with history of chf, short of breath; FINDINGS: Patient is rotated which limits evaluation. Lungs/Pleura: There is no evidence of pleural effusion, focal consolidation, or pneumothorax. Pulmonary vascularity: Slightly decreased pulmonary vascular congestion. Heart/mediastinum: Cardiomediastinal silhouette is enlarged and stable. Atherosclerotic calcificatio ns are seen in the aorta. Musculoskeletal: No acute osseous pathology. Spinal stabilization levi redemonstrated. IMPRESSION: Cardiomegaly with decreased pulmonary vascular congestion when compared to prior exam.
[2023-05-12] MEDS: IPRATROPIUM-ALBUTEROL 3 ML NEB INHALATION SCH ×4 (07:43→19:46)
[2023-05-12] MEDS: ALBUTEROL NEBULIZED 2.5 MG/3 ML INHALATION SCH ×2 (07:44→10:52)
[2023-05-12] MEDS: HEPARIN SODIUM,PORCINE/PF 5,000 UNIT/0.5 ML SYRINGE SQ SCH ×2 (08:17→20:16)
[2023-05-12] MEDS: allopurinoL 100 MG TAB PO SCH (08:18)
[2023-05-12] MEDS: GLIMEPIRIDE 4 MG TAB PO SCH (08:18)
[2023-05-12] MEDS: FUROSEMIDE 10 MG/ML 4 ML VIAL IV SCH ×2 (08:18→20:16)
[2023-05-12] MEDS: FENOFIBRATE 160 MG TAB PO SCH (08:18)
[2023-05-12] MEDS: metFORMIN 500 MG TAB PO SCH ×2 (08:18→17:50)
[2023-05-12] MEDS: POTASSIUM CHLORIDE ER 10 MEQ TAB.ER.PRT PO SCH (08:18)
[2023-05-12] MEDS: DAPAGLIFLOZIN PROPANEDIOL 10 MG TABLET PO SCH (08:19)
[2023-05-12] MEDS: AZITHROMYCIN 500 MG TAB PO SCH (08:19)
[2023-05-12] MEDS: METOPROLOL TARTRATE 12.5 MG TAB PO SCH ×2 (08:19→20:16)
[2023-05-12] MEDS: NICOTINE 21MG/24HR PATCH TRANSDERM SCH (08:20)
[2023-05-12] MEDS: MAGNESIUM OXIDE 400 MG TAB PO SCH ×2 (08:21→20:16)
[2023-05-12] MEDS: HYDROcodone/APAP 5-325MG 1 EACH TAB PO PRN (08:29)
[2023-05-12] MEDS: methylPREDNISolone 4 MG TAB TAPER PO SCH (08:29)
[2023-05-12] MEDS: PREGABALIN 75 MG CAP PO SCH ×2 (08:29→20:16)
--- NOTE | 2023-05-12 10:26 | P.CRDCN ---
History of Present Illness Consult date: 05/11/23 History of present illness: HISTORY OF PRESENT ILLNESS: This is a 62-year-old female with a past medical history significant for COPD, diabetes, hypertension, hyperlipidemia, and nicotine dependence. Patient does not follow with a human resources consultant. We have been asked to see the patient in consultation for congestive heart failure. Patient examined at the bedside. Patient states she presented to the hospital with a chief complaint of shortness of breath. The patient states that her noticed she was having more difficulty in breathing than she normally does. She also was lethargic at home. This morning the patient reports mild shortness of breath. She denies chest pain or pressure. Patient was started on IV Lasix 40 mg every 12 hours. * EKG reveals sinus tachycardia with no signs of acute ischemia * Chest xray posterior consolidation, correlate for pneumonia. Diffuse increased lung markings on AP projection. Cardiomegaly * Laboratory data: WBC 6.4. Hemoglobin 11.2. Platelet count 148. Sodium 141. Potassium 3.3. BUN 20. Creatinine 0.87. Lactic acid 1.2. Troponin negative 1. ProBNP 8520. Her calcitonin 0.19. * Current home cardiac medications include Lipitor 80 mg at night, Lasix 40 mg twice a day, metoprolol tartrate 12.5 mg twice a day * Most recent echocardiogram obtained in July 2022 revealed ejection fraction 65%. REVIEW OF SYSTEMS: At the time of my exam: CONSTITUTIONAL: Denies fever or chills. HEENT: Denies blurred vision, vision changes, or eye pain. Denies hemoptysis CARDIOVASCULAR: Denies chest pain. Denies orthopnea. Denies PND. Denies palpitations RESPIRATORY: Denies shortness of breath. GASTROINTESTINAL: Denies abdominal pain. Denies nausea or vomiting. HEMATOLOGIC: Denies bleeding disorders. GENITOURINARY: Denies any blood in urine. SKIN: Denies pruitis. Denies rash. PHYSICAL EXAM: VITAL SIGNS: Reviewed. GENERAL: Well-developed in no acute distress. HEENT: Head is normocephalic. Pupils are equal, round. Sclerae anicteric. Mucous membranes of the mouth are moist. Neck supple. No JVD or thyromegaly LUNGS: Respirations even and unlabored. Lungs diminished bilaterally HEART: Regular rate and rhythm. S1 and S2 heard. ABDOMEN: Soft. Nondistended. Nontender. EXTREMITIES: Normal range of motion. No clubbing or cyanosis. Peripheral pulses intact. Trace lower extremity edema NEUROLOGIC: Awake and alert. Oriented x 3. ASSESSMENT: Shortness of breath Acute COPD exacerbation Acute on chronic heart failure with preserved ejection fraction Hypertension Hyperlipidemia Diabetes Nicotine dependence PLAN: Obtain 2-D echo to assess cardiac structure and function Resume home cardiac medications Decrease IV Lasix to 40 mg every 12 hours Daily weights, accurate I&O, and monitoring of kidney function Further recommendations pending patient's course Nurse practitioner note has been reviewed by physician. Signing provider agrees with the documented findings, assessment, and plan of care. Past Medical History Past Medical History: COPD, Diabetes Mellitus, Eye Disorder, GERD/Reflux, Hyperlipidemia, Hypertension, Osteoarthritis (OA) Additional Past Medical History / Comment(s): glaucoma. "Knees have been giving out." DDD. gout, lower back and left hip pain History of Any Multi-Drug Resistant Organisms: None Reported Past Surgical History: Back Surgery, Section, Cholecystectomy, Tubal Ligation Additional Past Surgical History / Comment(s): MARBIN PLACED FOR SCOLIOSIS as child. mult left breast biopsy, Past Anesthesia/Blood Transfusion Reactions: No Reported Reaction Past Psychological History: No Psychological Hx Reported Additional Psychological History / Comment(s): . Smoking Status: Current every day smoker Past Alcohol Use History: None Reported Additional Past Alcohol Use History / Comment(s): Has been smoking since 14 yrs old, > 1 PPD. Past Drug Use History: None Reported Additional Drug Use History / Comment(s): . - Past Family History Brother(s) Family Medical History: Diabetes Mellitus Mother Family Medical History: Cancer Father Family Medical History: Cancer Medications and Allergies Home Medications Medication Instructions Recorded Confirmed Type Cyclobenzaprine [Flexeril] 10 mg PO HS 07/11/14 05/11/23 History Omeprazole [PriLOSEC] 20 mg PO DAILY 08/05/14 05/11/23 History Fenofibrate 160 mg PO DAILY 05/27/16 05/11/23 History allopurinoL [Allopurinol] 100 mg PO DAILY 05/27/16 05/11/23 History Glimepiride [Amaryl] 8 mg PO DAILY 06/28/17 05/11/23 History rOPINIRole HCL [Requip] 0.25 mg PO HS 06/02/18 05/11/23 History Atorvastatin [Lipitor] 80 mg PO HS 01/21/22 05/11/23 History Empagliflozin [Jardiance] 25 mg PO DAILY 01/21/22 05/11/23 History Ergocalciferol (Vitamin D2) 1,250 mcg PO MO 01/21/22 05/11/23 History [Drisdol (50,000 Iu)] Magnesium Oxide [Magox 400] 400 mg PO BID 01/21/22 05/11/23 History Pregabalin [Lyrica] 150 mg PO BID 01/21/22 05/11/23 History metFORMIN HCL [Glucophage] 1,000 mg PO BID 01/21/22 05/11/23 History HYDROcodone/APAP 5-325MG [[place] 1 tab PO Q6HR PRN 04/08/23 05/11/23 History 5-325] Potassium Chloride 10 meq PO DAILY 04/08/23 05/11/23 History Triamcinolone 0.1% Cream [Kenalog 1 applic TOPICAL BID 04/08/23 05/11/23 History 0.1% Cream] levETIRAcetam [Keppra] 1,500 mg PO BID 04/08/23 05/11/23 History Insulin Detemir [Levemir Flexpen] 8 units SQ BID #3 each 04/18/23 05/11/23 Rx Metoprolol Tartrate [Lopressor] 12.5 mg PO BID #60 tab 04/18/23 05/11/23 Rx Nicotine 21Mg/24Hr Patch [Habitrol] 1 patch TRANSDERM DAILY #4 patch 04/18/23 05/11/23 Rx Furosemide [Lasix] 40 mg PO BID@0900,1600 05/11/23 05/11/23 History Allergies Allergy/AdvReac Type Severity Reaction Status Date / Time codeine AdvReac Severe Abdominal Verified 05/11/23 06:52 Pain Physical Exam Vitals: Vital Signs Temp Pulse Pulse Resp BP BP Pulse Ox 05/11/23 08:50 91 05/11/23 08:41 88 93 L 05/11/23 07:00 98.3 F 97 22 141/88 98 05/11/23 06:18 87 18 138/81 94 L 05/11/23 05:30 93 18 134/92 70 L 05/11/23 05:00 85 139/81 05/11/23 04:30 86 159/85 05/11/23 04:00 135/96 05/11/23 03:30 84 145/87 05/11/23 03:00 89 20 127/86 90 L 05/11/23 02:30 91 118/76 93 L 05/11/23 02:00 92 143/81 96 05/11/23 01:30 94 149/97 05/11/23 01:00 94 L 05/11/23 00:30 93 L 05/11/23 00:14 93 20 86 L 05/10/23 23:45 96 05/10/23 23:24 96 05/10/23 21:59 98 F 97 20 130/78 92 L Intake and Output 05/10/23 05/11/23 05/11/23 22:59 06:59 14:59 Other: Weight 81.647 kg 81.647 kg Results 05/10/23 21:59 05/11/23 06:07 Cardiac Enzymes 05/10/23 05/10/23 Range/Units 21:59 21:59 AST 27 (14-36) U/L Troponin I <0.012 (0.000-0.034) ng/mL Coagulation 05/10/23 Range/Units 21:59 PT 12.7 H (9.0-12.0) sec APTT 22.3 (22.0-30.0) sec CBC 05/10/23 Range/Units 21:59 WBC 6.4 (3.8-10.6) k/uL RBC 5.07 (3.80-5.40) m/uL Hgb 11.2 L (11.4-16.0) gm/dL Hct 39.0 (34.0-46.0) % Plt Count 148 L (150-450) k/uL Comprehensive Metabolic Panel 05/10/23 05/11/23 Range/Units 21:59 06:07 Sodium 141 (137-145) mmol/L Potassium 3.1 L 3.3 L (3.5-5.1) mmol/L Chloride 94 L (98-107) mmol/L Carbon Dioxide 39 H (22-30) mmol/L BUN 20 H (7-17) mg/dL Creatinine 0.78 (0.52-1.04) mg/dL Glucose 158 H (74-99) mg/dL Calcium 8.0 L (8.4-10.2) mg/dL AST 27 (14-36) U/L ALT 17 (4-34) U/L Alkaline Phosphatase 56 (38-126) U/L Total Protein 5.6 L (6.3-8.2) g/dL Albumin 3.4 L (3.5-5.0) g/dL Current Medications Generic Name Dose Route Start Last Admin Trade Name Freq PRN Reason Stop Dose Admin Albuterol Sulfate 2.5 mg 05/11/23 08:00 05/11/23 08:39 Albuterol Nebulized 2.5 Mg/3 Ml INHALATION 2.5 mg RT-QID HAYDEN Administration Albuterol/Ipratropium 3 ml 05/11/23 00:47 Ipratropium-Albuterol 3 Ml Neb INHALATION RT-Q4H PRN shortness of breath Azithromycin 500 mg 05/12/23 09:00 Azithromycin 500 Mg Tab PO 05/13/23 09:01 DAILY HAYDEN Protocol Miscellaneous Information 1 each 05/11/23 00:47 Pneumonia Protocol Utilized 1 Each Misc PO ONCE PRN Per Protocol Sodium Chloride 10 ml 05/11/23 09:00 Sodium Chloride 0.9% Flush 10 Ml Syringe IV BID HAYDEN Intake and Output 05/10/23 05/11/23 05/11/23 22:59 06:59 14:59 Other: Weight 81.647 kg 81.647 kg Patient Weight 05/12/23 06:59 Weight 81.647 kg 05/10/23 21:59 05/11/23 06:07
--- NOTE | 2023-05-12 11:47 | P.PN ---
Subjective Progress Note Date: 05/12/23 This is a very pleasant 62-year-old female patient, known history of COPD, maintain on home oxygen, chronic and ongoing tobacco dependence, diabetes mellitus, hyperlipidemia, hypertension, osteoarthritis, gout. He's had multiple admissions for altered mental status and hypoxemia. She is a poor historian. He was sent into the emergency room yesterday after having complaints of shortness of breath. She states her states that she was not breathing right and she seems a bit confused. Chest x-ray shows posterior consolidation, diffuse increased lung markings suggestive of worsening congestion. She has saturation 86% on room air initially. Currently in the 90s on 4 L nasal cannula. White count 6.4. Hemoglobin 11.2. Platelets 148. Sodium 141. Potassium 3.1. Bicarb 39. BUN 20. Creatinine 0.78. Glucose 158. Pro- calcitonin 0.19. Serum alcohol level less than 10. ProBNP 8520. Troponin negative 1. She's been initiated on DuoNeb inhalations, IV Solu-Medrol. Initiated on Lasix 40 mg IV every 8 hours. Heparin for DVT prophylaxis. NicoDerm patch in place. Antibiotics in the form of ceftriaxone and azithromycin. She is seen today in consultation on the regular medical floor. She is awake and alert in no acute distress. Sitting up in bed. Asking to go home. Denies any worsening shortness of breath, cough or congestion. The patient is seen today 05/12/2023 in follow-up on the regular medical floor. She is sitting up in bed. Awake and alert in no acute distress. Maintaining good O2 saturations in the mid 90s on 4 L/m per nasal cannula. Chest x-ray shows cardiomegaly with decreased pulmonary vascular congestion compared to previous. She continues with some dry crackles in the posterior bases. Continued on IV diuretics. Continue Solu-Medrol. Pro-calcitonin 0.19. She is currently on ceftriaxone and azithromycin. She remains on DuoNeb inhalations, albuterol inhalations. NicoDerm patch in place. Objective - Vital Signs Vital signs: Vital Signs Temp 97.8 F 05/12/23 07:00 Pulse 86 05/12/23 11:04 Resp 18 05/12/23 07:00 BP 136/85 05/12/23 07:00 Pulse Ox 96 05/12/23 07:44 FiO2 Intake & Output 05/11/23 05/12/23 05/12/23 18:59 06:59 18:59 Intake Total 236 Output Total 1200 2009 Balance -964 -2010 Weight 81.647 kg Intake: Oral 236 Output: Urine 1200 2009 Other: Voiding Method External Catheter External Catheter - Exam GENERAL EXAM: Alert, 62-year-old female, on 4 L nasal cannula, in no apparent distress. HEAD: Normocephalic. EYES: Normal reaction of pupils, equal size. NOSE: Clear with pink turbinates. THROAT: Edentulous. No erythema or exudates. NECK: No masses, no JVD. CHEST: No chest wall deformity. LUNGS: Equal air entry with faint crackles in the posterior bases. CVS: S1 and S2 normal with no audible murmur, regular rhythm. ABDOMEN: No hepatosplenomegaly, normal bowel sounds, no guarding or rigidity. SPINE: No scoliosis or deformity SKIN: No rashes CENTRAL NERVOUS SYSTEM: No focal deficits, tone is normal in all 4 extremities. EXTREMITIES: There is no peripheral edema. No clubbing, no cyanosis. Peripheral pulses are intact. - Labs CBC & Chem 7: 05/10/23 21:59 05/11/23 06:07 Labs: Abnormal Lab Results - Last 24 Hours (Table) 05/11/23 05/11/23 05/11/23 Range/Units 12:41 14:15 15:26 POC Glucose (mg/dL) 488 H >600 H 515 H (70-110) mg/dL 05/11/23 05/11/23 05/12/23 Range/Units 17:20 20:17 06:09 POC Glucose (mg/dL) 257 H 244 H 303 H (70-110) mg/dL Assessment and Plan Assessment: Acute on chronic hypoxemic respiratory failure secondary to an acute exacerbation of diastolic congestive heart failure Acute on chronic hypoxemic respiratory failure secondary to an acute exacerbation of chronic obstructive pulmonary disease Recent multiple admissions for COPD exacerbations, altered mental status, hypoxemia at home History of oxygen dependent chronic obstructive place disease History of 50 years of chronic and ongoing tobacco dependence Diabetes mellitus Hyperlipidemia Hypertension Osteoarthritis. History of gout Plan: The patient was seen and evaluated Chest x-ray, labs and medications reviewed Procalcitonin 0.19 Discontinue ceftriaxone Continue azithromycin Discontinue Solu-Medrol Initiate Medrol Dosepak Continue diuretics Educated regarding the importance of complete smoking cessation NicoDerm patch in place Probable discharge in a.m. We will continue to follow I have personally seen and examined the patient, performed the documentation and the assessment and plan as written. Number of minutes spent on the visit: 10.
[2023-05-12 12:34] LABS: Glucose,Whole Blood 328 mg/dL (70-110)
[2023-05-12 13:06] LABS: Basophils # (A) 0.02 X 10*3/uL (0.00-0.10); Basophils % (A) 0.3 %; Eosinophils # (A) 0 X 10*3/uL (0.04-0.35); Eosinophils % (A) 0 %; HCT 45.1 % (37.2-46.3); HGB 11.9 d/dL (12.0-15.0); Hypochromasia (M) 2+; Lymphocytes # (A) 1.15 X 10*3/uL (0.90-5.00); Lymphocytes % (A) 18.5 %; MCH 21.4 pg (27.0-32.0); MCHC 26.4 d/dL (32.0-37.0); MCV 81.3 FL (80.0-97.0); Monocytes # (A) 0.14 X 10*3/uL (0.20-1.00); Monocytes % (A) 2.3 %; NRBC Per 100 WBC 0.04 X 10*3/uL (0.00-0.01); Neutrophils # (A) 4.84 X 10*3/uL (1.80-7.70); Neutrophils % (A) 77.8 %; Platelet Count 193 X 10*3/uL (140-440); Polychromasia 2+; RBC 5.55 X 10*6/uL (4.10-5.20); WBC 6.22 X 10*3/uL (4.50-10.00)
--- NOTE | 2023-05-12 13:15 | CA ---
Transthoracic Echo Report Name: Aundrea Bustillo Age: 62 Gender: F : 1960 Exam Date: 05/11/2023 11:50 Exam Location: [facility] Ht (in): 62 Wt (lb): 180 Ordering Physician: Lauren Rios MD Attending/Referring Phys: Director Of Recreation Therapy Gregorio Crowder Procedure CPT: Indications: chf Cardiac Hx: Technical Quality: Fair Contrast 1: Total Dose (mL): Contrast 2: Total Dose (mL): MEASUREMENTS (Male / Female) Normal Values FINDINGS Left Ventricle Normal LV size and wall thickness. Left ventricular ejection fraction is estimated at 55-60 %. Right Ventricle Moderate right ventricular dilatation. RVSP= 44mmhg. Right Atrium Normal right atrial size. Left Atrium Normal left atrial size. Mitral Valve Posterior MAC. Aortic Valve Trileaflet aortic valve. No aortic valve stenosis or regurgitation. Tricuspid Valve Tricuspid valve not well visualized. Moderate TR. Pulmonic Valve Pulmonic valve not well visualized. No pulmonic regurgitation. Pericardium Normal pericardium. Aorta Normal size aortic root and proximal ascending aorta. CONCLUSIONS Preserved LV size and systolic function Mildly dilated right ventricle Moderate tricuspid regurgitation Previewed by: Dr. Louis Miller MD (Electronically Signed) Final Date: 12 May 2023 13:14
[2023-05-12 14:29] LABS: BUN/Creat Ratio 21.78 Ratio (12.00-20.00); Blood Urea Nitrogen 19.6 mg/dL (9.0-27.0); Calcium 9.8 mg/dL (8.7-10.3); Carbon Dioxide 28.8 mmol/L (21.6-31.8); Chloride 101 mmol/L (96-109); Glucose 249 mg/dL (70-110); Magnesium 2.1 mg/dL (1.5-2.4); Potassium 4.4 mmol/L (3.5-5.5); Sodium 146 mmol/L (135-145)
[2023-05-12 15:59] VITALS: BMI 32.9
[2023-05-12 17:19] LABS: Glucose,Whole Blood 269 mg/dL (70-110)
[2023-05-12] MEDS: SYMBICORT 160-4.5 MCG INHALER INHALATION SCH (19:46)
[2023-05-12 20:12] LABS: Glucose,Whole Blood 212 mg/dL (70-110)
[2023-05-12] MEDS: CYCLOBENZAPRINE 10 MG TAB PO SCH (20:16)
[2023-05-12] MEDS: ATORVASTATIN 80 MG TAB PO SCH (20:16)
[2023-05-13 03:40] VITALS: RESP 18
[2023-05-13 06:04] LABS: Glucose,Whole Blood 68 mg/dL (70-110)
[2023-05-13] MEDS: INSULIN ASPART (NovoLOG) 100 UNIT/ML VIAL SQ SCH ×2 (06:06→08:10)
[2023-05-13] MEDS: INSULIN DETEMIR (LEVEMIR) 100 UNIT/ML SYR SQ SCH (06:06)
[2023-05-13] MEDS: PANTOPRAZOLE 40 MG TABLET PO SCH (06:28)
[2023-05-13 06:29] LABS: Glucose,Whole Blood 103 mg/dL (70-110)
--- NOTE | 2023-05-13 06:30 | P.PN ---
Subjective Progress Note Date: 05/12/23 This is a pleasant 62-year-old female who was recently admitted with increasing shortness of breath secondary to acute CHF exacerbation as well as COPD exacerbation. Patient being followed by pulmonary along with cardiology and 2-D echo pending. Patient is continued on IV Lasix along with DuoNeb treatments and has been transitioned to oral steroids. Patient is maintained on oxygen. Nasal cannula at 4 L and she chronically wears in the outpatient setting. Patient is also a poorly controlled diabetic who reports she only takes pills at home. Recommend close outpatient follow-up with primary care provider to discuss medication adjustments. Patient is afebrile denies chest pain or palpitations. Patient denies worsening shortness of breath and continues to ask when she can go home. Review of systems: Constitutional: No reports of fatigue, fever, or chills Cardiovascular: No reports of chest pain or palpitations Respiratory: No reports of worsening shortness of breath or cough GI: No reports of nausea, no reports of vomiting, no diarrhea : No reports of dysuria or retention Neurovascular: No reports of generalized weakness All medications have been reviewed PHYSICAL EXAMINATION: GENERAL: The patient is alert and oriented x4, Well developed, well nourished. Obese. HEENT: Pupils are round and equally reacting to light. EOMI. no scleral icterus. No conjunctival pallor. Normocephalic, atraumatic. No pharyngeal erythema. No thyromegaly. CARDIOVASCULAR: S1 and S2 muffled PULMONARY: diminished breath sounds bilaterally with no coarse scattered rhonchi as well as some faint crackles at the bases noted. Wheezing improved ABDOMEN: soft. Nontender on exam. obese. non-distended, normoactive bowel sounds. No palpable organomegaly. MUSCULOSKELETAL: No joint swelling or deformity. EXTREMITIES: No cyanosis, clubbing, or pedal edema. NEUROLOGICAL: Gross neurological examination did not reveal any focal deficits. SKIN: No rashes. Assessment: Shortness of breath, possibly multifactorial with chronic obstructive pulmonary disease acute exacerbation and congestive heart failure acute exacerbation History of congestive heart failure with preserved EF Hypokalemia, improved Diabetes mellitus, type II uncontrolled with hyperglycemia History of hypertension History of hyperlipidemia Obesity with BMI of 32.9 GI prophylaxis DVT prophylaxis Full code Plan: Recommend to continue with current medications and management with cardiology and pulmonary following. Patient maintained on breathing treatments and has been transitioned oral steroids Cardiology following and 2-D echo ordered and pending and patient is continued on IV Lasix and will continue to twice daily and follow up on repeat labs Continue with oxygen supplementation as she chronically wears this the outpatient setting Recommend continue monitoring Accu-Cheks before meals and at bedtime we'll c ontinue with sliding scale, pre-meal insulin, and long acting. Patient is extremely noncompliant with diabetes management and would benefit from diabetes education. Will provide resources on discharge. Will follow-up with repeat labs in the a.m. and continue to monitor closely Encouraged to increase activity as tolerated Possible discharge in the next 24-48 hours. The impression and plan of care has been dictated by Roseanna Austin, nurse practitioner as directed. Dr. Mitchell MC I have performed a history and examination and MDM of this patient, discussed the same with the dictator, and agree with the dictator's assessment and plan as written ,documented as a scribe. Based on total visit time, I have performed more than 50% of the visit. Any additional findings or plans will be noted. Objective - Vital Signs Vital signs: Vital Signs Temp 97.8 F 05/12/23 07:00 Pulse 88 05/12/23 07:55 Resp 18 05/12/23 07:00 BP 136/85 05/12/23 07:00 Pulse Ox 96 05/12/23 07:44 FiO2 Intake & Output 05/11/23 05/12/23 05/12/23 18:59 06:59 18:59 Intake Total 236 Output Total 1200 2009 Balance -96 Weight 81.647 kg Intake: Oral 236 Output: Urine 1200 2009 Other: Voiding Method External Catheter External Catheter - Labs CBC & Chem 7: 05/12/23 06:46 05/12/23 06:46 Labs: Abnormal Lab Results - Last 24 Hours (Table) 05/11/23 05/11/23 05/11/23 Range/Units 12:41 14:15 15:26 POC Glucose (mg/dL) 488 H >600 H 515 H (70-110) mg/dL 05/11/23 05/11/23 05/12/23 Range/Units 17:20 20:17 06:09 POC Glucose (mg/dL) 257 H 244 H 303 H (70-110) mg/dL
[2023-05-13 08:04] VITALS: BP 115/77; TEMP 98.1
[2023-05-13] MEDS: metFORMIN 500 MG TAB PO SCH (08:10)
[2023-05-13] MEDS: PREGABALIN 75 MG CAP PO SCH (08:11)
[2023-05-13] MEDS: methylPREDNISolone 4 MG TAB TAPER PO SCH (08:11)
[2023-05-13] MEDS: FENOFIBRATE 160 MG TAB PO SCH (08:11)
[2023-05-13] MEDS: GLIMEPIRIDE 4 MG TAB PO SCH (08:11)
[2023-05-13] MEDS: MAGNESIUM OXIDE 400 MG TAB PO SCH (08:11)
[2023-05-13] MEDS: DAPAGLIFLOZIN PROPANEDIOL 10 MG TABLET PO SCH (08:11)
[2023-05-13] MEDS: METOPROLOL TARTRATE 12.5 MG TAB PO SCH (08:12)
[2023-05-13] MEDS: POTASSIUM CHLORIDE ER 10 MEQ TAB.ER.PRT PO SCH (08:12)
[2023-05-13] MEDS: NICOTINE 21MG/24HR PATCH TRANSDERM SCH (08:12)
[2023-05-13] MEDS: allopurinoL 100 MG TAB PO SCH (08:12)
[2023-05-13] MEDS: AZITHROMYCIN 500 MG TAB PO SCH (08:13)
[2023-05-13] MEDS: HEPARIN SODIUM,PORCINE/PF 5,000 UNIT/0.5 ML SYRINGE SQ SCH (08:13)
[2023-05-13] MEDS: HYDROcodone/APAP 5-325MG 1 EACH TAB PO PRN (08:19)
[2023-05-13] MEDS: SYMBICORT 160-4.5 MCG INHALER INHALATION SCH (08:20)
[2023-05-13] MEDS: IPRATROPIUM-ALBUTEROL 3 ML NEB INHALATION SCH ×2 (08:20→11:49)
[2023-05-13 08:36] VITALS: PULSE 80
[2023-05-13] MEDS ORDERED: FUROSEMIDE 40 MG TAB PO SCH (09:00)
[2023-05-13 09:55] LABS: Calcium 9.5 mg/dL (8.7-10.3); Carbon Dioxide 35.1 mmol/L (21.6-31.8); Chloride 100 mmol/L (96-109); Glucose 52 mg/dL (70-110); Potassium 4.1 mmol/L (3.5-5.5); Sodium 145 mmol/L (135-145)
--- NOTE | 2023-05-13 12:35 | P.PN ---
Subjective HISTORY OF PRESENT ILLNESS: This is a 62-year-old female with a past medical history significant for COPD, diabetes, hypertension, hyperlipidemia, and nicotine dependence. 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 We have been asked to see the patient in consultation for congestive heart failure. Patient examined at the bedside. Patient states she presented to the hospital with a chief complaint of shortness of breath. The patient states that her noticed she was having more difficulty in breathing than she normally does. She also was lethargic at home. This morning the patient reports mild shortness of breath. She denies chest pain or pressure. Patient was started on IV Lasix 40 mg every 12 hours. * EKG reveals sinus tachycardia with no signs of acute ischemia * Chest xray posterior consolidation, correlate for pneumonia. Diffuse increased lung markings on AP projection. Cardiomegaly * Laboratory data: WBC 6.4. Hemoglobin 11.2. Platelet count 148. Sodium 141. Potassium 3.3. BUN 20. Creatinine 0.87. Lactic acid 1.2. Troponin negative 1. ProBNP 8520. Her calcitonin 0.19. * Current home cardiac medications include Lipitor 80 mg at night, Lasix 40 mg twice a day, metoprolol tartrate 12.5 mg twice a day * Most recent echocardiogram obtained in July 2022 revealed ejection fracti on 65%. 05/13/2023 Patient examined this morning at the bedside. Patient denies chest pain or pressure. She reports her shortness of breath has improved. Vital signs are stable. Echocardiogram reveals ejection fraction 55-60% PHYSICAL EXAM: VITAL SIGNS: Reviewed. GENERAL: Well-developed in no acute distress. HEENT: Head is normocephalic. Pupils are equal, round. Sclerae anicteric. Mucous membranes of the mouth are moist. Neck supple. No JVD or thyromegaly LUNGS: Respirations even and unlabored. Lungs diminished bilaterally HEART: Regular rate and rhythm. S1 and S2 heard. ABDOMEN: Soft. Nondistended. Nontender. EXTREMITIES: Normal range of motion. No clubbing or cyanosis. Peripheral pulses intact. Trace lower extremity edema NEUROLOGIC: Awake and alert. Oriented x 3. ASSESSMENT: Shortness of breath Acute COPD exacerbation Acute on chronic heart failure with preserved ejection fraction Hypertension Hyperlipidemia Diabetes Nicotine dependence PLAN: Continue current cardiac medications Discontinue IV Lasix Resume home dose of oral Lasix Patient is stable from a cardiac standpoint We'll sign off. Please reconsult if needed. Nurse practitioner note has been reviewed by physician. Signing provider agrees with the documented findings, assessment, and plan of care. Objective - Vital Signs Vital signs: Vital Signs Temp 98.1 F 05/13/23 07:00 Pulse 80 05/13/23 08:36 Resp 18 05/13/23 07:00 BP 115/77 05/13/23 07:00 Pulse Ox 98 05/13/23 02:48 FiO2 Intake & Output 05/12/23 05/13/23 05/13/23 18:59 06:59 18:59 Intake Total 240 Output Total 1400 700 Balance -1160 -700 Weight 81.647 kg Intake: Oral 240 Output: Urine 1400 700 Other: Voiding Method External Catheter External Catheter External Catheter # Bowel Movements 1 - Labs CBC & Chem 7: 05/12/23 06:46 05/13/23 05:29 Labs: Abnormal Lab Results - Last 24 Hours (Table) 05/12/23 05/12/23 05/12/23 Range/Units 06:46 06:46 06:46 RBC 5.55 H (4.10-5.20) X 10*6/uL Hgb 11.9 L (12.0-15.0) d/dL MCH 21.4 L (27.0-32.0) pg MCHC 26.4 L (32.0-37.0) d/dL RDW 25.0 H (11.5-14.5) % Monocytes # 0.14 L (0.20-1.00) X 10*3/uL Eosinophils # 0 L (0.04-0.35) X 10*3/uL NRBC/100 WBC Diff 0.04 H (0.00-0.01) X 10*3/uL Polychromasia 2+ A Hypochromasia (manual) 2+ A Sodium 146 H (135-145) mmol/L Carbon Dioxide (21.6-31.8) mmol/L Anion Gap 16.20 H (4.00-12.00) mmol/L BUN (9.0-27.0) mg/dL BUN/Creatinine Ratio 21.78 H (12.00-20.00) Ratio Glucose 249 H (70-110) mg/dL POC Glucose (mg/dL) (70-110) mg/dL Hemoglobin A1c 9.0 H (<=6.0) % 05/12/23 05/12/23 05/12/23 Range/Units 12:31 17:10 20:11 RBC (4.10-5.20) X 10*6/uL Hgb (12.0-15.0) d/dL MCH (27.0-32.0) pg MCHC (32.0-37.0) d/dL RDW (11.5-14.5) % Monocytes # (0.20-1.00) X 10*3/uL Eosinophils # (0.04-0.35) X 10*3/uL NRBC/100 WBC Diff (0.00-0.01) X 10*3/uL Polychromasia Hypochromasia (manual) Sodium (135-145) mmol/L Carbon Dioxide (21.6-31.8) mmol/L Anion Gap (4.00-12.00) mmol/L BUN (9.0-27.0) mg/dL BUN/Creatinine Ratio (12.00-20.00) Ratio Glucose (70-110) mg/dL POC Glucose (mg/dL) 328 H 269 H 212 H (70-110) mg/dL Hemoglobin A1c (<=6.0) % 05/13/23 05/13/23 Range/Units 05:29 06:02 RBC (4.10-5.20) X 10*6/uL Hgb (12.0-15.0) d/dL MCH (27.0-32.0) pg MCHC (32.0-37.0) d/dL RDW (11.5-14.5) % Monocytes # (0.20-1.00) X 10*3/uL Eosinophils # (0.04-0.35) X 10*3/uL NRBC/100 WBC Diff (0.00-0.01) X 10*3/uL Polychromasia Hypochromasia (manual) Sodium (135-145) mmol/L Carbon Dioxide 35.1 H (21.6-31.8) mmol/L Anion Gap (4.00-12.00) mmol/L BUN 35.0 H (9.0-27.0) mg/dL BUN/Creatinine Ratio 35.00 H (12.00-20.00) Ratio Glucose 52 L (70-110) mg/dL POC Glucose (mg/dL) 68 L (70-110) mg/dL Hemoglobin A1c (<=6.0) % Microbiology - Last 24 Hours (Table) 05/11/23 01:15 Blood Culture - Preliminary Blood
--- NOTE | 2023-05-13 13:32 | P.PN ---
Subjective Progress Note Date: 05/13/23 This is a very pleasant 62-year-old female patient, known history of COPD, maintain on home oxygen, chronic and ongoing tobacco dependence, diabetes mellitus, hyperlipidemia, hypertension, osteoarthritis, gout. He's had multiple admissions for altered mental status and hypoxemia. She is a poor historian. He was sent into the emergency room yesterday after having complaints of shortness of breath. She states her states that she was not breathing right and she seems a bit confused. Chest x-ray shows posterior consolidation, diffuse increased lung markings suggestive of worsening congestion. She has saturation 86% on room air initially. Currently in the 90s on 4 L nasal cannula. White count 6.4. Hemoglobin 11.2. Platelets 148. Sodium 141. Potassium 3.1. Bicarb 39. BUN 20. Creatinine 0.78. Glucose 158. Pro- calcitonin 0.19. Serum alcohol level less than 10. ProBNP 8520. Troponin negative 1. She's been initiated on DuoNeb inhalations, IV Solu-Medrol. Initiated on Lasix 40 mg IV every 8 hours. Heparin for DVT prophylaxis. NicoDerm patch in place. Antibiotics in the form of ceftriaxone and azithromycin. She is seen today in consultation on the regular medical floor. She is awake and alert in no acute distress. Sitting up in bed. Asking to go home. Denies any worsening shortness of breath, cough or congestion. The patient is seen today 05/12/2023 in follow-up on the regular medical floor. She is sitting up in bed. Awake and alert in no acute distress. Maintaining good O2 saturations in the mid 90s on 4 L/m per nasal cannula. Chest x-ray shows cardiomegaly with decreased pulmonary vascular congestion compared to previous. She continues with some dry crackles in the posterior bases. Continued on IV diuretics. Continue Solu-Medrol. Pro-calcitonin 0.19. She is currently on ceftriaxone and azithromycin. She remains on DuoNeb inhalations, albuterol inhalations. NicoDerm patch in place. The patient is seen today 05/13/2023 in follow-up on the regular medical floor. She is awake and alert in no acute distress. Maintaining good O2 saturations in the 90s on 2 L/m per nasal cannula. Afebrile. Hemodynamically stable. Blood cultures reveal no growth. Sodium 135. Potassium 4.1. Bicarb 35. BUN 35. Creatinine 1.0. Glucose 103. She is continued on DuoNeb inhalations, Symbicort, Medrol Dosepak. Heparin for DVT prophylaxis. Transitioned to oral diuretics. Antibiotics in the form of azithromycin. Objective - Vital Signs Vital signs: Vital Signs Temp 98.1 F 05/13/23 07:00 Pulse 80 05/13/23 08:36 Resp 18 05/13/23 07:00 BP 115/77 05/13/23 07:00 Pulse Ox 98 05/13/23 02:48 FiO2 Intake & Output 05/12/23 05/13/23 05/13/23 18:59 06:59 18:59 Intake Total 240 Output Total 1400 700 Balance -1160 -700 Weight 81.647 kg Intake: Oral 240 Output: Urine 1400 700 Other: Voiding Method External Catheter External Catheter External Catheter # Bowel Movements 1 - Exam GENERAL EXAM: Alert, 62-year-old female, on 2 L nasal cannula, in no apparent distress. HEAD: Normocephalic. EYES: Normal reaction of pupils, equal size. NOSE: Clear with pink turbinates. THROAT: Edentulous. No erythema or exudates. NECK: No masses, no JVD. CHEST: No chest wall deformity. LUNGS: Equal air entry with faint crackles in the posterior bases. CVS: S1 and S2 normal with no audible murmur, regular rhythm. ABDOMEN: No hepatosplenomegaly, normal bowel sounds, no guarding or rigidity. SPINE: No scoliosis or deformity SKIN: No rashes CENTRAL NERVOUS SYSTEM: No focal deficits, tone is normal in all 4 extremities. EXTREMITIES: There is no peripheral edema. No clubbing, no cyanosis. Peripheral pulses are intact. - Labs CBC & Chem 7: 05/12/23 06:46 05/13/23 05:29 Labs: Abnormal Lab Results - Last 24 Hours (Table) 05/12/23 05/12/23 05/12/23 Range/Units 06:46 06:46 17:10 Sodium 146 H (135-145) mmol/L Carbon Dioxide (21.6-31.8) mmol/L Anion Gap 16.20 H (4.00-12.00) mmol/L BUN (9.0-27.0) mg/dL BUN/Creatinine Ratio 21.78 H (12.00-20.00) Ratio Glucose 249 H (70-110) mg/dL POC Glucose (mg/dL) 269 H (70-110) mg/dL Hemoglobin A1c 9.0 H (<=6.0) % 05/12/23 05/13/23 05/13/23 Range/Units 20:11 05:29 06:02 Sodium (135-145) mmol/L Carbon Dioxide 35.1 H (21.6-31.8) mmol/L Anion Gap (4.00-12.00) mmol/L BUN 35.0 H (9.0-27.0) mg/dL BUN/Creatinine Ratio 35.00 H (12.00-20.00) Ratio Glucose 52 L (70-110) mg/dL POC Glucose (mg/dL) 212 H 68 L (70-110) mg/dL Hemoglobin A1c (<=6.0) % Microbiology - Last 24 Hours (Table) 05/11/23 01:15 Blood Culture - Preliminary Blood Assessment and Plan Assessment: Acute on chronic hypoxemic respiratory failure secondary to an acute exacerbation of diastolic congestive heart failure Acute on chronic hypoxemic respiratory failure secondary to an acute exacerbation of chronic obstructive pulmonary disease Recent multiple admissions for COPD exacerbations, altered mental status, hypoxemia at home Oxygen dependent chronic obstructive place disease History of 50 years of chronic and ongoing tobacco dependence Diabetes mellitus Hyperlipidemia Hypertension Osteoarthritis. History of gout Plan: The patient was seen and evaluated Labs and medications reviewed Complete azithromycin Continue Medrol Dosepak Continue diuretics Educated regarding the importance of complete smoking cessation NicoDerm patch in place Cleared for discharge from the pulmonary standpoint Follow-up in our office in 1 week I have personally seen and examined the patient, performed the documentation and the assessment and plan as written. Number of minutes spent on the visit: 10.
[2023-05-16] MEDS ORDERED: ERGOCALCIFEROL 1,250 MCG (50,000 IU) CAPSULE PO SCH (09:00)
--- NOTE | 2023-05-16 14:09 | P.DS ---
Providers Date of admission: 05/11/23 00:47 Expected date of discharge: 05/13/23 Attending physician: Lauren Rios Consults: 05/11/23 09:45 Consult Physician Urgent Consulting Provider: Nader Patel Consult Reason/Comments: copd Do you want consulting provider notified?: Yes 05/11/23 10:11 Consult Physician Urgent Consulting Provider: Pérez Yang Consult Reason/Comments: chf Do you want consulting provider notified?: Yes Primary care physician: Shun Simmons Hospital Course: Final diagnosis Shortness of breath, possibly multifactorial with chronic obstructive pulmonary disease acute exacerbation and congestive heart failure acute exacerbation History of congestive heart failure with preserved EF Hypokalemia, improved Diabetes mellitus, type II uncontrolled with hyperglycemia History of hypertension History of hyperlipidemia Noncompliance with medications and follow-up Obesity with BMI of 32.9 GI prophylaxis DVT prophylaxis Full code Discharge disposition Patient is being discharged in a stable condition with guarded prognosis to home with home care. Patient will follow-up with Dr. Simmons in the outpatient setting upon discharge. Patient is to continue with prednisone taper and close outpatient follow-up with pulmonary and cardiology as scheduled. Total time taken is greater than 35 minutes. Hospital course This is a 62-year-old female who was recently admitted with shortness of breath found to have CHF as well as COPD exacerbation. Blood sugars significantly uncontrolled maintained on IV steroids and is continued on insulin therapy. Patient normally reports she only takes oral diabetic agents but does have insulin at home as she does get elevated blood sugars when on steroid therapy. Patient showing some improvement on IV Lasix and will continue oral Lasix dosing and prednisone taper and close outpatient follow-up. Patient is extremely noncompliant with medications and follow-up in high risk for readmissions. Patient has had multiple hospitalizations for this. Patient has been cleared by consultations. Please refer to consultation note for further HPI. Currently no reports of chest pain, shortness of breath, or palpitations. Patient is afebrile. No reports of nausea or vomiting and patient is tolerating diet. Patient will be discharged home today. Guarded prognosis. Physical exam: Gen: This is a 62-year-old female who is awake, alert and oriented 3, well- developed, well-nourished, obese HEENT: Head is atraumatic, normocephalic. Pupils equal, round. Sclerae is anicteric. NECK: Supple. No JVD. No lymphadenopathy. No thyromegaly. LUNGS: Diminished breath sounds bilaterally with some scattered rhonchi. No intercostal retractions. HEART: S1, S2 are muffled ABDOMEN: Soft. Obese. Bowel sounds are present. No masses. No tenderness. EXTREMITIES: No pedal edema. No calf tenderness. NEUROLOGICAL: Patient is awake, alert and oriented x3. Cranial nerves 2 through 12 are grossly intact. Please refer to medication reconciliation sheet for a list of medications. The impression and plan of care has been dictated by Roseanna Austin, Nurse Practitioner as directed. Dr. Mitchell MD I have performed a history and examination and MDM of this patient, discussed the same with the dictator, and agree with the dictator's assessment and plan as written ,documented as a scribe. Based on total visit time, I have performed more than 50% of the visit. Patient Condition at Discharge: Fair Plan - Discharge Summary New Discharge Prescriptions: New methylPREDNISolone Dose Pack [Medrol Dose Pack] 4 mg PO DIRECTED #21 tab Budesonide-Formot 160-4.5 Mcg [Symbicort 160-4.5 Mcg Inhaler] 2 puff INHALATION RT-BID 30 Days #1 each Continue Cyclobenzaprine [Flexeril] 10 mg PO HS Omeprazole [PriLOSEC] 20 mg PO DAILY Fenofibrate 160 mg PO DAILY allopurinoL [Allopurinol] 100 mg PO DAILY Glimepiride [Amaryl] 8 mg PO DAILY rOPINIRole HCL [Requip] 0.25 mg PO HS Atorvastatin [Lipitor] 80 mg PO HS Ergocalciferol (Vitamin D2) [Drisdol (50,000 Iu)] 1,250 mcg PO MO levETIRAcetam [Keppra] 1,500 mg PO BID HYDROcodone/APAP 5-325MG [[place] 5-325] 1 tab PO Q6HR PRN PRN Reason: Pain Triamcinolone 0.1% Cream [Kenalog 0.1% Cream] 1 applic TOPICAL BID Potassium Chloride 10 meq PO DAILY Insulin Detemir [Levemir Flexpen] 8 units SQ BID #3 each Metoprolol Tartrate [Lopressor] 12.5 mg PO BID #60 tab Furosemide [Lasix] 40 mg PO BID@0900,1600 Pregabalin [Lyrica] 150 mg PO BID Magnesium Oxide [Magox 400] 400 mg PO BID metFORMIN HCL [Glucophage] 1,000 mg PO BID Empagliflozin [Jardiance] 25 mg PO DAILY Nicotine 21Mg/24Hr Patch [Habitrol] 1 patch TRANSDERM DAILY #4 patch Discharge Medication List Cyclobenzaprine [Flexeril] 10 mg PO HS 07/11/14 [History] Omeprazole [PriLOSEC] 20 mg PO DAILY 08/05/14 [History] Fenofibrate 160 mg PO DAILY 05/27/16 [History] allopurinoL [Allopurinol] 100 mg PO DAILY 05/27/16 [History] Glimepiride [Amaryl] 8 mg PO DAILY 06/28/17 [History] rOPINIRole HCL [Requip] 0.25 mg PO HS 06/02/18 [History] Atorvastatin [Lipitor] 80 mg PO HS 01/21/22 [History] Empagliflozin [Jardiance] 25 mg PO DAILY 01/21/22 [History] Ergocalciferol (Vitamin D2) [Drisdol (50,000 Iu)] 1,250 mcg PO MO 01/21/22 [History] Magnesium Oxide [Magox 400] 400 mg PO BID 01/21/22 [History] Pregabalin [Lyrica] 150 mg PO BID 01/21/22 [History] metFORMIN HCL [Glucophage] 1,000 mg PO BID 01/21/22 [History] HYDROcodone/APAP 5-325MG [[place] 5-325] 1 tab PO Q6HR PRN 04/08/23 [History] Potassium Chloride 10 meq PO DAILY 04/08/23 [History] Triamcinolone 0.1% Cream [Kenalog 0.1% Cream] 1 applic TOPICAL BID 04/08/23 [Hi story] levETIRAcetam [Keppra] 1,500 mg PO BID 04/08/23 [History] Insulin Detemir [Levemir Flexpen] 8 units SQ BID #3 each 04/18/23 [Rx] Metoprolol Tartrate [Lopressor] 12.5 mg PO BID #60 tab 04/18/23 [Rx] Nicotine 21Mg/24Hr Patch [Habitrol] 1 patch TRANSDERM DAILY #4 patch 04/18/23 [Rx] Furosemide [Lasix] 40 mg PO BID@0900,1600 05/11/23 [History] Budesonide-Formot 160-4.5 Mcg [Symbicort 160-4.5 Mcg Inhaler] 2 puff INHALATION RT-BID 30 Days #1 each 05/13/23 [Rx] methylPREDNISolone Dose Pack [Medrol Dose Pack] 4 mg PO DIRECTED #21 tab 05/13/23 [Rx] Follow up Appointment(s)/Referral(s): Nader Patel DO [Doctor of Osteopathic Medicine] - 06/09/23 1:30 pm [facility], [NON-STAFF] - Shun Simmons DO [Primary Care Provider] - 1-2 days Patient Instructions/Handouts: Heart Failure (DC) Activity/Diet/Wound Care/Special Instructions: Activity Limited until follow-up Follow-up with primary care provider on discharge Continue taking medications as prescribed Closely monitor your blood sugars and keep a diary of all readings for primary follow-up Continue with inhalers and follow up with pulmonary in 1-2 weeks Follow-up cardiology in the outpatient setting Continue diabetic heart healthy diet Avoid tobacco use and exposure Discharge Disposition: HOME WITH HOME HEALTH SERVICES
== END 2023-05-13 12:17 | disposition home health service (06) | DRG 140 ==
LOC: EC 21:33 → 6NMEDSUR 05-11 00:47 → OBSVTOIN 05-11 00:47 → 6NMEDSUR 05-11 06:30
PROVIDERS: ADMIT Hospitalist; ATTEND Hospitalist
DX: J44.1 Chronic obstructive pulmonary disease with (acute) exacerbation (principal); I11.0 Hypertensive heart disease with heart failure; J96.21 Acute and chronic respiratory failure with hypoxia; I50.33 Acute on chronic diastolic (congestive) heart failure; E11.65 Type 2 diabetes mellitus with hyperglycemia; Z79.4 Long term (current) use of insulin; E87.6 Hypokalemia; E78.5 Hyperlipidemia, unspecified; M19.90 Unspecified osteoarthritis, unspecified site; H40.9 Unspecified glaucoma; K21.9 Gastro-esophageal reflux disease without esophagitis; M10.9 Gout, unspecified; M25.552 Pain in left hip; R41.82 Altered mental status, unspecified; M41.9 Scoliosis, unspecified; E66.9 Obesity, unspecified; Z68.32 Body mass index [BMI] 32.0-32.9, adult; F17.210 Nicotine dependence, cigarettes, uncomplicated; Z71.6 Tobacco abuse counseling; Z99.81 Dependence on supplemental oxygen; Z79.84 Long term (current) use of oral hypoglycemic drugs; Z79.899 Other long term (current) drug therapy; Z88.5 Allergy status to narcotic agent; Z71.3 Dietary counseling and surveillance
CPT/HCPCS: 36415; 71045; 71046; 80048; 80053; 80320; 82803; 83036; 83605; 83735; 83880; 84132; 84145; 84484; 85025; 85610; 85730; 87040; 93005; 93306; 94640; 94760; 96365; 96366; 99285

== ENCOUNTER 2023-06-11 20:29 | Emergency (ER) | payer OTHER ==
[2023-06-11 20:49] VITALS: TEMP 97.9
[2023-06-11] MEDS ORDERED: FUROSEMIDE 10 MG/ML 4 ML VIAL IV STA (22:18)
--- NOTE | 2023-06-11 22:27 | ED ---
General Adult HPI - General Chief complaint: Extremity Problem,Nontraumatic Stated complaint: Leg Pain Time Seen by Provider: 06/11/23 21:48 Source: patient, RN notes reviewed Mode of arrival: wheelchair Limitations: no limitations - History of Present Illness Initial comments: 62-year-old female with past medical history significant for chronic back pain and COPD presents to the emergency department with a chief complaint of bilateral lower extremity edema. She reports that she was recently diagnosed with CHF recently. She reports she is supposed be taking her Lasix daily however she has not and she is taking it intermittently when she remembers. She denies any dizziness, lightheadedness, shortness of breath, dyspnea, chest pain, palpitations. She denies any trauma or injury. She does report that she has limited mobility due to some of her chronic conditions. She wears oxygen at home. She describes her conditions is chronic in nature. - Related Data Home Medications Medication Instructions Recorded Confirmed Cyclobenzaprine [Flexeril] 10 mg PO HS 07/11/14 05/11/23 Omeprazole [PriLOSEC] 20 mg PO DAILY 08/05/14 05/11/23 Fenofibrate 160 mg PO DAILY 05/27/16 05/11/23 allopurinoL [Allopurinol] 100 mg PO DAILY 05/27/16 05/11/23 Glimepiride [Amaryl] 8 mg PO DAILY 06/28/17 05/11/23 rOPINIRole HCL [Requip] 0.25 mg PO HS 06/02/18 05/11/23 Atorvastatin [Lipitor] 80 mg PO HS 01/21/22 05/11/23 Empagliflozin [Jardiance] 25 mg PO DAILY 01/21/22 05/11/23 Ergocalciferol (Vitamin D2) 1,250 mcg PO MO 01/21/22 05/11/23 [Drisdol (50,000 Iu)] Magnesium Oxide [Magox 400] 400 mg PO BID 01/21/22 05/11/23 Pregabalin [Lyrica] 150 mg PO BID 01/21/22 05/11/23 metFORMIN HCL [Glucophage] 1,000 mg PO BID 01/21/22 05/11/23 HYDROcodone/APAP 5-325MG [[place] 1 tab PO Q6HR PRN 04/08/23 05/11/23 5-325] Potassium Chloride 10 meq PO DAILY 04/08/23 05/11/23 Triamcinolone 0.1% Cream [Kenalog 1 applic TOPICAL BID 04/08/23 05/11/23 0.1% Cream] levETIRAcetam [Keppra] 1,500 mg PO BID 04/08/23 05/11/23 Furosemide [Lasix] 40 mg PO BID@0900,1600 05/11/23 05/11/23 Previous Rx's Medication Instructions Recorded Insulin Detemir [Levemir Flexpen] 8 units SQ BID #3 each 04/18/23 Metoprolol Tartrate [Lopressor] 12.5 mg PO BID #60 tab 04/18/23 Nicotine 21Mg/24Hr Patch [Habitrol] 1 patch TRANSDERM DAILY #4 patch 04/18/23 Budesonide-Formot 160-4.5 Mcg 2 puff INHALATION RT-BID 30 Days 05/13/23 [Symbicort 160-4.5 Mcg Inhaler] #1 each methylPREDNISolone Dose Pack 4 mg PO DIRECTED #21 tab 05/13/23 [Medrol Dose Pack] Allergies Allergy/AdvReac Type Severity Reaction Status Date / Time codeine AdvReac Severe Abdominal Verified 05/11/23 06:52 Pain Review of Systems ROS Statement: Those systems with pertinent positive or pertinent negative responses have been documented in the HPI. ROS Other: All systems not noted in ROS Statement are negative. Past Medical History Past Medical History: Heart Failure, COPD, Diabetes Mellitus, Eye Disorder, GERD/Reflux, Hyperlipidemia, Hypertension, Osteoarthritis (OA) Additional Past Medical History / Comment(s): glaucoma. "Knees have been giving out." DDD. gout, lower back and left hip pain History of Any Multi-Drug Resistant Organisms: None Reported Past Surgical History: Back Surgery, Section, Cholecystectomy, Tubal Ligation Additional Past Surgical History / Comment(s): MARBIN PLACED FOR SCOLIOSIS as child. mult left breast biopsy, Past Anesthesia/Blood Transfusion Reactions: No Reported Reaction Past Psychological History: No Psychological Hx Reported Smoking Status: Current every day smoker Past Alcohol Use History: None Reported Past Drug Use History: None Reported - Past Family History Brother(s) Family Medical History: Diabetes Mellitus Mother Family Medical History: Cancer Father Family Medical History: Cancer General Exam - General Exam Comments Initial Comments: General: Alert, in no acute distress, she appears disheveled Head: atraumatic normocephalic. Eyes PERRL, EOMI intact, mucous membranes moist Respiratory: Lungs clear to auscultation bilaterally Cardiovascular: Rate regular rate and rhythm Abdominal: Soft without guarding or rebound Extremities: Normal inspection with full range of motion and normal capillary refill, plus bilateral pitting edema to lower extremities Neuroogic: alert and oriented 3, CN II-XII intact, able to ambulate with steady gait Skin: warm dry and intact with normal color Limitations: no limitations Course Vital Signs 06/11/23 06/11/23 06/11/23 20:46 21:56 23:15 Temperature 97.9 F Pulse Rate 102 H 101 H 104 H Respiratory 18 18 20 Rate Blood Pressure 104/66 115/63 O2 Sat by Pulse 94 L 92 L 93 L Oximetry Medical Decision Making - Medical Decision Making Was pt. sent in by a medical professional or institution (, PA, SERVICE WRITER, urgent care, hospital, or long-term...) When possible be specific @ -[No] Did you speak to anyone other than the patient for history (EMS, parent, family, police, friend...)? What history was obtained from this source @ - Did you review nursing and triage notes (agree or disagree)? Why? @ -[I reviewed and agree with nursing and triage notes] Were old charts reviewed (outside hosp., previous admission, EMS record, old EKG, old radiological studies, urgent care reports/EKG's, long-term records)? Report findings @ -[No old charts were reviewed] Differential Diagnosis (chest pain, altered mental status, abdominal pain women, abdominal pain men, vaginal bleeding, weakness, fever, dyspnea, syncope, headache, dizziness, GI bleed, back pain, seizure, CVA, palpatations, mental health, musculoskeletal)? @ -[not applicable] EKG interpreted by me (3pts min.). @ -[As above] X-rays interpreted by me (1pt min.). @Mild cardiomegaly, no evidence of pleural consolidation CT interpreted by me (1pt min.). @ -[None done] U/S interpreted by me (1pt. min.). @ -[None done] What testing was considered but not performed or refused? (CT, X-rays, U/S, labs)? Why? @ -[None] What meds were considered but not given or refused? Why? @ -[None] Did you discuss the management of the patient with other professionals (prof montanez i.e. , PA, SERVICE WRITER, lab, RT, psych nurse, manager social work, trip motor operator, teacher, stream control officer, director case)? Give summary @ -[No] Was smoking cessation discussed for >3mins.? @ -[No] Was critical care preformed (if so, how long)? @ -[No] Were there social determinants of health that impacted care today? How? (Homelessness, low income, unemployed, alcoholism, drug addiction, trans portation, low edu. Level, literacy, decrease access to med. care, intermediate, rehab)? @ -[No] Was there de-escalation of care discussed even if they declined (Discuss DNR or withdrawal of care, Hospice)? DNR status @ -[No] What co-morbidities impacted this encounter? (DM, HTN, Smoking, COPD, CAD, Cancer, CVA, ARF, Chemo, Hep., AIDS, mental health diagnosis, sleep apnea, morbid obesity)? @ -[None] Was patient admitted / discharged? Hospital course, mention meds given and route, prescriptions, significant lab abnormalities, going to OR and other pertinent info. @ -Discharge. This is a pleasant 62-year-old female with past medical history significant for CHF presents the emergency department with bilateral leg swelling. Physical exam reveals bilateral lower extremity 2+ pitting edema. Patient's oxygen saturation is 93% on 3 L however this isn't her baseline. She has not had any acute respiratory distress. Chest x-ray reveals mild cardiomegaly, marbin within the thoracic spine is evident Labs remarkable for WBC 12.5, hemoglobin 10.9 PT 12.6, sodium 140, potassium 2.6 BUNs 18, creatinine 0.74. Troponin 0.012o BNP 5000 Discuss results in detail with the patient verbalized understanding and all questions were addressed. She was given 40 mg IV Lasix with symptomatic relief in the emergency department she is agreeable with the plan for discharge at this time. She'll be discharged home in stable condition. Patient educated on the importance of taking Lasix as prescribed. Return precautions were discussed. Case discussed with FEDERICO MorrisP who agrees with plan of care Undiagnosed new problem with uncertain prognosis? @ -[No] Drug Therapy requiring intensive monitoring for toxicity (Heparin, Nitro, Insulin, Cardizem)? @ -[No] Were any procedures done? @ -[No] Diagnosis/symptom? @ -Exacerbation of CHF Bilater leg edema Acute, or Chronic, or Acute on Chronic? @ -Acute Uncomplicated (without systemic symptoms) or Complicated (systemic symptoms)? @ -Uncomplicated Side effects of treatment? @ -[No] Exacerbation, Progression, or Severe Exacerbation? @ -[No] Poses a threat to life or bodily function? How? (Chest pain, USA, MS, pneumonia, PE, COPD, DKA, ARF, appy, cholecystitis, CVA, Diverticulitis, Homicidal, Suicidal, threat to staff... and all critical care pts) @ -moderate likelihood - Lab Data Result diagrams: 06/11/23 23:04 06/11/23 23:04 Lab Results 06/11/23 06/11/23 06/11/23 Range/Units 23:04 23:04 23:04 WBC 12.5 H (3.8-10.6) k/uL RBC 4.82 (3.80-5.40) m/uL Hgb 10.9 L (11.4-16.0) gm/dL Hct 36.3 (34.0-46.0) % MCV 75.3 L (80.0-100.0) fL MCH 22.7 L (25.0-35.0) pg MCHC 30.1 L (31.0-37.0) g/dL RDW 21.5 H (11.5-15.5) % Plt Count 265 (150-450) k/uL MPV 8.9 Neutrophils % 70 % Lymphocytes % 21 % Monocytes % 6 % Eosinophils % 3 % Basophils % 0 % Neutrophils # 8.7 H (1.3-7.7) k/uL Lymphocytes # 2.6 (1.0-4.8) k/uL Monocytes # 0.7 (0-1.0) k/uL Eosinophils # 0.3 (0-0.7) k/uL Basophils # 0.0 (0-0.2) k/uL Hypochromasia Marked Poikilocytosis Moderate Anisocytosis Moderate Microcytosis Moderate PT 12.6 H (9.0-12.0) sec INR 1.2 H (<1.2) APTT 25.0 (22.0-30.0) sec Sodium 140 (137-145) mmol/L Potassium 3.6 (3.5-5.1) mmol/L Chloride 95 L (98-107) mmol/L Carbon Dioxide 39 H (22-30) mmol/L Anion Gap 6 mmol/L BUN 18 H (7-17) mg/dL Creatinine 0.74 (0.52-1.04) mg/dL Est GFR (CKD-EPI)AfAm >90 (>60 ml/min/1.73 sqM) Est GFR (CKD-EPI)NonAf 87 (>60 ml/min/1.73 sqM) Glucose 93 (74-99) mg/dL Calcium 8.1 L (8.4-10.2) mg/dL Total Bilirubin 0.4 (0.2-1.3) mg/dL AST 31 (14-36) U/L ALT 14 (4-34) U/L Alkaline Phosphatase 55 (38-126) U/L Troponin I (0.000-0.034) ng/mL NT-Pro-B Natriuret Pep 5000 pg/mL Total Protein 5.9 L (6.3-8.2) g/dL Albumin 3.2 L (3.5-5.0) g/dL 06/11/23 Range/Units 23:04 WBC (3.8-10.6) k/uL RBC (3.80-5.40) m/uL Hgb (11.4-16.0) gm/dL Hct (34.0-46.0) % MCV (80.0-100.0) fL MCH (25.0-35.0) pg MCHC (31.0-37.0) g/dL RDW (11.5-15.5) % Plt Count (150-450) k/uL MPV Neutrophils % % Lymphocytes % % Monocytes % % Eosinophils % % Basophils % % Neutrophils # (1.3-7.7) k/uL Lymphocytes # (1.0-4.8) k/uL Monocytes # (0-1.0) k/uL Eosinophils # (0-0.7) k/uL Basophils # (0-0.2) k/uL Hypochromasia Poikilocytosis Anisocytosis Microcytosis PT (9.0-12.0) sec INR (<1.2) APTT (22.0-30.0) sec Sodium (137-145) mmol/L Potassium (3.5-5.1) mmol/L Chloride (98-107) mmol/L Carbon Dioxide (22-30) mmol/L Anion Gap mmol/L BUN (7-17) mg/dL Creatinine (0.52-1.04) mg/dL Est GFR (CKD-EPI)AfAm (>60 ml/min/1.73 sqM) Est GFR (CKD-EPI)NonAf (>60 ml/min/1.73 sqM) Glucose (74-99) mg/dL Calcium (8.4-10.2) mg/dL Total Bilirubin (0.2-1.3) mg/dL AST (14-36) U/L ALT (4-34) U/L Alkaline Phosphatase (38-126) U/L Troponin I <0.012 (0.000-0.034) ng/mL NT-Pro-B Natriuret Pep pg/mL Total Protein (6.3-8.2) g/dL Albumin (3.5-5.0) g/dL Disposition Clinical Impression: CHF (congestive heart failure), Lower extremity edema Disposition: HOME SELF-CARE Condition: Stable Additional Instructions: Please take Lasix as prescribed Please return to the nearest emergency department if worsening shortness of breath Is patient prescribed a controlled substance at d/c from ED?: No Referrals: Shun Simmons DO [Primary Care Provider] - 1-2 days Time of Disposition: 00:05
[2023-06-11 23:16] LABS: Anisocytosis Moderate; Basophils % (A) 0 %; Eosinophils # (A) 0.3 k/uL (0-0.7); Eosinophils % (A) 3 %; HCT 36.3 % (34.0-46.0); HGB 10.9 gm/dL (11.4-16.0); Hypochromasia Marked; Lymphocytes # (A) 2.6 k/uL (1.0-4.8); Lymphocytes % (A) 21 %; MCH 22.7 pg (25.0-35.0); MCHC 30.1 g/dL (31.0-37.0); MCV 75.3 fL (80.0-100.0); Mean Platelet Volume 8.9; Microcytosis Moderate; Monocytes # (A) 0.7 k/uL (0-1.0); Monocytes % (A) 6 %; Neutrophils # (A) 8.7 k/uL (1.3-7.7); Neutrophils % (A) 70 %; Platelet Count 265 k/uL (150-450); Poikilocytosis Moderate; RBC 4.82 m/uL (3.80-5.40); RDW 21.5 % (11.5-15.5); WBC 12.5 k/uL (3.8-10.6)
[2023-06-11 23:24] VITALS: BP 115/63; PULSE 104; RESP 20
[2023-06-11 23:25] LABS: ALT 14 U/L (4-34); AST 31 U/L (14-36); African American GFR (CKD) >90 (>60 ml/min/1.73 sqM); Albumin 3.2 g/dL (3.5-5.0); Alkaline Phosphatase 55 U/L (38-126); Anion Gap 6 mmol/L; Blood Urea Nitrogen 18 mg/dL (7-17); Calcium 8.1 mg/dL (8.4-10.2); Carbon Dioxide 39 mmol/L (22-30); Chloride 95 mmol/L (98-107); Glucose 93 mg/dL (74-99); INR 1.2 (<1.2); Non-African American GFR(CKD) 87 (>60 ml/min/1.73 sqM); Potassium 3.6 mmol/L (3.5-5.1); Prothrombin Time 12.6 sec (9.0-12.0); Sodium 140 mmol/L (137-145); Total Bilirubin 0.4 mg/dL (0.2-1.3); Total Protein 5.9 g/dL (6.3-8.2)
--- NOTE | 2023-06-11 23:33 | XR ---
EXAMINATION TYPE: XR chest 2V DATE OF EXAM: 06/11/2023 COMPARISON: 05/12/2023 INDICATION: Short of breath TECHNIQUE: Frontal and lateral views of the chest are obtained. FINDINGS: The heart size is mildly prominent. The pulmonary vasculature is normal. The lungs are clear. [place] within the thoracic spine is evident IMPRESSION: 1. Mild cardiomegaly
[2023-06-11 23:34] LABS: NT-Pro-B-Type Natriuretic Pept 5000 pg/mL
== END 2023-06-12 00:12 | disposition home or self-care (01) ==
LOC: EC 20:29
DX: R22.43 Localized swelling, mass and lump, lower limb, bilateral (principal); I11.0 Hypertensive heart disease with heart failure; I50.9 Heart failure, unspecified; J44.9 Chronic obstructive pulmonary disease, unspecified; E11.9 Type 2 diabetes mellitus without complications; K21.9 Gastro-esophageal reflux disease without esophagitis; E78.5 Hyperlipidemia, unspecified; M19.90 Unspecified osteoarthritis, unspecified site; F17.200 Nicotine dependence, unspecified, uncomplicated; Z88.5 Allergy status to narcotic agent; Z79.84 Long term (current) use of oral hypoglycemic drugs; Z79.899 Other long term (current) drug therapy
CPT/HCPCS: 36415; 93005; 83880; 80053; 84484; 85025; 85610; 85730; 71046; 99284; 96374; J1940

== ENCOUNTER 2023-06-14 13:14 | Emergency (ER) | payer OTHER ==
[2023-06-14 13:22] VITALS: RESP 18; TEMP 99
--- NOTE | 2023-06-14 14:09 | ED ---
General Adult HPI - General Chief complaint: Neuro Symptoms/Deficit Stated complaint: Arm fells numb (Left) SOB Time Seen by Provider: 06/14/23 13:27 Source: patient Mode of arrival: wheelchair - History of Present Illness Initial comments: Dictation was produced using [employer] dictation software. please excuse any grammatical, word or spelling errors. Chief Complaint: Weakness History of Present Illness: 62-year-old female past medical history heart failure COPD presents to the emergency department for weakness. Patient has chronic neck pain secondary to long-standing history of scoliosis. Patient scoliosis surgery as a child. She continues to abuse tobacco. Denies any pain complaints. States that she was weak. Denies any abdominal pain. No chest pain or shortness of breath. Patient has multiple comorbidities. The ROS documented in this emergency department record has been reviewed and confirmed by me. Those systems with pertinent positive or negative responses have been documented in the HPI. All other systems are other negative and/or noncontributory. - Related Data Home Medications Medication Instructions Recorded Confirmed Cyclobenzaprine [Flexeril] 10 mg PO HS 07/11/14 05/11/23 Omeprazole [PriLOSEC] 20 mg PO DAILY 08/05/14 05/11/23 Fenofibrate 160 mg PO DAILY 05/27/16 05/11/23 allopurinoL [Allopurinol] 100 mg PO DAILY 05/27/16 05/11/23 Glimepiride [Amaryl] 8 mg PO DAILY 06/28/17 05/11/23 rOPINIRole HCL [Requip] 0.25 mg PO HS 06/02/18 05/11/23 Atorvastatin [Lipitor] 80 mg PO HS 01/21/22 05/11/23 Empagliflozin [Jardiance] 25 mg PO DAILY 01/21/22 05/11/23 Ergocalciferol (Vitamin D2) 1,250 mcg PO MO 01/21/22 05/11/23 [Drisdol (50,000 Iu)] Magnesium Oxide [Magox 400] 400 mg PO BID 01/21/22 05/11/23 Pregabalin [Lyrica] 150 mg PO BID 01/21/22 05/11/23 metFORMIN HCL [Glucophage] 1,000 mg PO BID 01/21/22 05/11/23 HYDROcodone/APAP 5-325MG [[place] 1 tab PO Q6HR PRN 04/08/23 05/11/23 5-325] Potassium Chloride 10 meq PO DAILY 04/08/23 05/11/23 Triamcinolone 0.1% Cream [Kenalog 1 applic TOPICAL BID 04/08/23 05/11/23 0.1% Cream] levETIRAcetam [Keppra] 1,500 mg PO BID 04/08/23 05/11/23 Furosemide [Lasix] 40 mg PO BID@0900,1600 05/11/23 05/11/23 Previous Rx's Medication Instructions Recorded Insulin Detemir [Levemir Flexpen] 8 units SQ BID #3 each 04/18/23 Metoprolol Tartrate [Lopressor] 12.5 mg PO BID #60 tab 04/18/23 Nicotine 21Mg/24Hr Patch [Habitrol] 1 patch TRANSDERM DAILY #4 patch 04/18/23 Budesonide-Formot 160-4.5 Mcg 2 puff INHALATION RT-BID 30 Days 05/13/23 [Symbicort 160-4.5 Mcg Inhaler] #1 each methylPREDNISolone Dose Pack 4 mg PO DIRECTED #21 tab 05/13/23 [Medrol Dose Pack] Allergies Allergy/AdvReac Type Severity Reaction Status Date / Time codeine AdvReac Severe Abdominal Verified 05/11/23 06:52 Pain Review of Systems ROS Statement: Those systems with pertinent positive or pertinent negative responses have been documented in the HPI. ROS Other: All systems not noted in ROS Statement are negative. Past Medical History Past Medical History: Heart Failure, COPD, Diabetes Mellitus, Eye Disorder, GERD /Reflux, Hyperlipidemia, Hypertension, Osteoarthritis (OA) Additional Past Medical History / Comment(s): glaucoma. "Knees have been giving out." DDD. gout, lower back and left hip pain History of Any Multi-Drug Resistant Organisms: None Reported Past Surgical History: Back Surgery, Section, Cholecystectomy, Tubal Ligation Additional Past Surgical History / Comment(s): MARBIN PLACED FOR SCOLIOSIS as child. mult left breast biopsy, Past Anesthesia/Blood Transfusion Reactions: No Reported Reaction Past Psychological History: No Psychological Hx Reported Smoking Status: Current every day smoker Past Alcohol Use History: None Reported Past Drug Use History: None Reported - Past Family History Brother(s) Family Medical History: Diabetes Mellitus Mother Family Medical History: Cancer Father Family Medical History: Cancer General Exam - General Exam Comments Initial Comments: PHYSICAL EXAM: General Impression: Alert and oriented x3, not in acute distress HEENT: Normocephalic atraumatic, extra-ocular movements intact, pupils equal and reactive to light bilaterally, mucous membranes moist. Cardiovascular: Heart regular rate and rhythm Chest: Able to complete full sentences, no retractions, no tachypnea Abdomen: abdomen soft, non-tender, non-distended, no organomegaly Musculoskeletal: Pulses present and equal in all extremities, no peripheral edema Motor: no focal deficits noted Neurological: CN II-XII grossly intact, no focal motor or sensory deficits noted Skin: Intact with no visualized rashes Psych: Normal affect and mood Course Vital Signs 06/14/23 13:17 Temperature 99.0 F Pulse Rate 113 H Respiratory 18 Rate Blood Pressure 118/73 O2 Sat by Pulse 90 L Oximetry Medical Decision Making - Medical Decision Making Was pt. sent in by a medical professional or institution (, PA, STEAM PRESSER, urgent care, hospital, or senior living...) When possible be specific @ -No Did you speak to anyone other than the patient for history (EMS, parent, family, police, friend...)? What history was obtained from this source @ -No Did you review nursing and triage notes (agree or disagree)? Why? @ -I reviewed and agree with nursing and triage notes Were old charts reviewed (outside hosp., previous admission, EMS record, old EKG, old radiological studies, urgent care reports/EKG's, senior living records)? Report findings @ -No old charts were reviewed Differential Diagnosis (chest pain, altered mental status, abdominal pain women, abdominal pain men, vaginal bleeding, musculoskeletal, weakness, fever, dyspnea, syncope, headache, dizziness, GI bleed, back pain, seizure, CVA, palpatations, mental health)? @ -Differential Weakness: Hypoglycemia, shock, sepsis, hyponatremia, anemia, infection, [place], ETOH, adverse medicine reaction, overdose, stroke, this is not meant to be an all-inclusive list. EKG interpreted by me (3pts min.). @ -My EKG interpretation: Ventricular rate 111, sinus tachycardia,. 152, QRS 84, QTC 400. No KS prolongation, no QTC prolongation, no ST or T-wave changes noted. EKG compared to 06/12/2023 showing no changes. Overall, this EKG is unremarkable X-rays interpreted by me (1pt min.). @ -None done CT interpreted by me (1pt min.). @ -None done U/S interpreted by me (1pt. min.). @ -None done What testing was considered but not performed or refused? (CT, X-rays, U/S, labs)? Why? @ -None What meds were considered but not given or refused? Why? @ -None Did you discuss the management of the patient with other professionals (professionals i.e. DrBrianna, PA, STEAM PRESSER, lab, RT, psych nurse, social welfare administrator, health diagnostics teacher, teacher, department of natural resources officer, supportive employment case manager)? Give summary @ -No Was smoking cessation discussed for >3mins.? @ -No Was critical care preformed (if so, how long)? @ -No Were there social determinants of health that impacted care today? How? (Homelessness, low income, unemployed, alcoholism, drug addiction, transportation, low edu. Level, literacy, decrease access to med. care, half-way, rehab)? @ -No Was there de-escalation of care discussed even if they declined (Discuss DNR or withdrawal of care, Hospice)? DNR status @ -No What co-morbidities impacted this encounter? (DM, HTN, Smoking, COPD, CAD, Cancer, CVA, ARF, Chemo, Hep., AIDS, mental health diagnosis, sleep apnea, morbid obesity)? @ -Tobacco abuse, obesity, COPD Was patient admitted / discharged? Hospital course, mention meds given and route, prescriptions, significant lab abnormalities, going to OR and other pertinent info. @ -62-year-old obese female who continues to smoke tobacco presents to the ER for weakness. She denies me that she has any shortness of breath or chest pain. States that her main complaint secondary to generalized weakness is left neck pain shows a history of scoliosis surgery. She has seen a pain specialist in the past for pain injections. Vital signs shows mild tachycardia. Patient has history of tachycardia. Patient not dyspneic. Pulse oximetry upon arrival is 90% Rhett S likely an error. Repeat pulse oximetry is within acceptable limits. Laboratory evaluation obtained. CBC, coag panel metabolic panel within acceptable limits. Troponin negative. Urinalysis negative. Patient given morphine. Discharged told to follow-up with primary care doctor and pain specialist. Undiagnosed new problem with uncertain prognosis? @ -No Drug Therapy requiring intensive monitoring for toxicity (Heparin, Nitro, Insulin, Cardizem)? @ -No Were any procedures done? @ -No Diagnosis/symptom? Acute, or Chronic, or Acute on Chronic? Uncomplicated (without systemic symptoms) or Complicated (systemic symptoms)? @ -1. Generalized weakness, 2. Acute on Chronic neck pain Side effects of treatment? @ -No Exacerbation, Progression, or Severe Exacerbation? @ -No Poses a threat to life or bodily function? How? (Chest pain, [place], [place], pneumonia, PE, COPD, DKA, ARF, appy, cholecystitis, CVA, Diverticulitis, Homicidal, Suicidal, threat to staff... and all critical care pts) @ -No - Lab Data Result diagrams: 06/14/23 14:05 06/14/23 14:05 Lab Results 06/14/23 06/14/23 06/14/23 Range/Units 14:05 14:05 14:05 WBC 12.5 H (3.8-10.6) k/uL RBC 4.87 (3.80-5.40) m/uL Hgb 10.9 L (11.4-16.0) gm/dL Hct 36.3 (34.0-46.0) % MCV 74.5 L (80.0-100.0) fL MCH 22.4 L (25.0-35.0) pg MCHC 30.1 L (31.0-37.0) g/dL RDW 21.1 H (11.5-15.5) % Plt Count 365 (150-450) k/uL MPV 10.2 Neutrophils % 69 % Lymphocytes % 22 % Monocytes % 6 % Eosinophils % 1 % Basophils % 0 % Neutrophils # 8.6 H (1.3-7.7) k/uL Lymphocytes # 2.7 (1.0-4.8) k/uL Monocytes # 0.8 (0-1.0) k/uL Eosinophils # 0.2 (0-0.7) k/uL Basophils # 0.0 (0-0.2) k/uL Hypochromasia Marked Poikilocytosis Moderate Anisocytosis Moderate Microcytosis Marked PT 14.1 H (9.0-12.0) sec INR 1.4 H (<1.2) APTT 24.1 (22.0-30.0) sec Sodium 139 (137-145) mmol/L Potassium 3.9 (3.5-5.1) mmol/L Chloride 92 L (98-107) mmol/L Carbon Dioxide 39 H (22-30) mmol/L Anion Gap 8 mmol/L BUN 18 H (7-17) mg/dL Creatinine 0.75 (0.52-1.04) mg/dL Est GFR (CKD-EPI)AfAm >90 (>60 ml/min/1.73 sqM) Est GFR (CKD-EPI)NonAf 85 (>60 ml/min/1.73 sqM) Glucose 93 (74-99) mg/dL Calcium 8.3 L (8.4-10.2) mg/dL Total Bilirubin 0.4 (0.2-1.3) mg/dL AST 31 (14-36) U/L ALT 15 (4-34) U/L Alkaline Phosphatase 54 (38-126) U/L Troponin I (0.000-0.034) ng/mL NT-Pro-B Natriuret Pep 5050 pg/mL Total Protein 6.3 (6.3-8.2) g/dL Albumin 3.5 (3.5-5.0) g/dL Urine Color Urine Appearance (Clear) Urine pH (5.0-8.0) Ur Specific [place] (1.001-1.035) Urine Protein (Negative) Urine Glucose (UA) (Negative) Urine Ketones (Negative) Urine Blood (Negative) Urine Nitrite (Negative) Urine Bilirubin (Negative) Urine Urobilinogen (<2.0) mg/dL Ur Leukocyte Esterase (Negative) 06/14/23 06/14/23 Range/Units 14:05 14:05 WBC (3.8-10.6) k/uL RBC (3.80-5.40) m/uL Hgb (11.4-16.0) gm/dL Hct (34.0-46.0) % MCV (80.0-100.0) fL MCH (25.0-35.0) pg MCHC (31.0-37.0) g/dL RDW (11.5-15.5) % Plt Count (150-450) k/uL MPV Neutrophils % % Lymphocytes % % Monocytes % % Eosinophils % % Basophils % % Neutrophils # (1.3-7.7) k/uL Lymphocytes # (1.0-4.8) k/uL Monocytes # (0-1.0) k/uL Eosinophils # (0-0.7) k/uL Basophils # (0-0.2) k/uL Hypochromasia Poikilocytosis Anisocytosis Microcytosis PT (9.0-12.0) sec INR (<1.2) APTT (22.0-30.0) sec Sodium (137-145) mmol/L Potassium (3.5-5.1) mmol/L Chloride (98-107) mmol/L Carbon Dioxide (22-30) mmol/L Anion Gap mmol/L BUN (7-17) mg/dL Creatinine (0.52-1.04) mg/dL Est GFR (CKD-EPI)AfAm (>60 ml/min/1.73 sqM) Est GFR (CKD-EPI)NonAf (>60 ml/min/1.73 sqM) Glucose (74-99) mg/dL Calcium (8.4-10.2) mg/dL Total Bilirubin (0.2-1.3) mg/dL AST (14-36) U/L ALT (4-34) U/L Alkaline Phosphatase (38-126) U/L Troponin I <0.012 (0.000-0.034) ng/mL NT-Pro-B Natriuret Pep pg/mL Total Protein (6.3-8.2) g/dL Albumin (3.5-5.0) g/dL Urine Color Colorless Urine Appearance Clear (Clear) Urine pH 8.0 (5.0-8.0) Ur Specific [place] 1.005 (1.001-1.035) Urine Protein Negative (Negative) Urine Glucose (UA) 2+ H (Negative) Urine Ketones Negative (Negative) Urine Blood Negative (Negative) Urine Nitrite Negative (Negative) Urine Bilirubin Negative (Negative) Urine Urobilinogen <2.0 (<2.0) mg/dL Ur Leukocyte Esterase Negative (Negative) Disposition Clinical Impression: Neck pain Disposition: HOME SELF-CARE Condition: Fair Instructions (If sedation given, give patient instructions): Chronic Neck Pain (DC) Is patient prescribed a controlled substance at d/c from ED?: No Referrals: Shun Simmons DO [Primary Care Provider] - 1-2 days Time of Disposition: 15:30
[2023-06-14 14:29] LABS: Anisocytosis Moderate; Basophils % (A) 0 %; Eosinophils # (A) 0.2 k/uL (0-0.7); Eosinophils % (A) 1 %; HCT 36.3 % (34.0-46.0); HGB 10.9 gm/dL (11.4-16.0); Hypochromasia Marked; Lymphocytes # (A) 2.7 k/uL (1.0-4.8); Lymphocytes % (A) 22 %; MCH 22.4 pg (25.0-35.0); MCHC 30.1 g/dL (31.0-37.0); MCV 74.5 fL (80.0-100.0); Mean Platelet Volume 10.2; Microcytosis Marked; Monocytes # (A) 0.8 k/uL (0-1.0); Monocytes % (A) 6 %; Neutrophils # (A) 8.6 k/uL (1.3-7.7); Neutrophils % (A) 69 %; Platelet Count 365 k/uL (150-450); Poikilocytosis Moderate; RBC 4.87 m/uL (3.80-5.40); RDW 21.1 % (11.5-15.5); WBC 12.5 k/uL (3.8-10.6)
[2023-06-14 14:33] LABS: Appearance,Urine Clear (Clear); Bilirubin,Urine Negative (Negative); Blood,Urine Negative (Negative); Color,Urine Colorless; Glucose,Urine (UA) 2+ (Negative); Ketones,Urine Negative (Negative); Leukocyte Esterase,Urine Negative (Negative); Nitrite,Urine Negative (Negative); Protein,Urine Negative (Negative); Specific Gravity,Urine 1.005 (1.001-1.035); Urobilinogen,Urine <2.0 mg/dL (<2.0)
[2023-06-14 14:42] LABS: ALT 15 U/L (4-34); AST 31 U/L (14-36); African American GFR (CKD) >90 (>60 ml/min/1.73 sqM); Albumin 3.5 g/dL (3.5-5.0); Alkaline Phosphatase 54 U/L (38-126); Anion Gap 8 mmol/L; Blood Urea Nitrogen 18 mg/dL (7-17); Calcium 8.3 mg/dL (8.4-10.2); Carbon Dioxide 39 mmol/L (22-30); Chloride 92 mmol/L (98-107); Glucose 93 mg/dL (74-99); INR 1.4 (<1.2); Non-African American GFR(CKD) 85 (>60 ml/min/1.73 sqM); Partial Thromboplastin Time 24.1 sec (22.0-30.0); Potassium 3.9 mmol/L (3.5-5.1); Prothrombin Time 14.1 sec (9.0-12.0); Sodium 139 mmol/L (137-145); Total Bilirubin 0.4 mg/dL (0.2-1.3); Total Protein 6.3 g/dL (6.3-8.2)
[2023-06-14 14:49] LABS: NT-Pro-B-Type Natriuretic Pept 5050 pg/mL
[2023-06-14] MEDS ORDERED: MORPHINE SULFATE 4 MG/ML SYRINGE IV STA (15:21)
[2023-06-14] MEDS ORDERED: HYDROmorphone 0.5 MG/0.5 ML SYRINGE IVP STA (16:52)
[2023-06-14 17:06] VITALS: BP 118/79; PULSE 110
== END 2023-06-14 17:07 | disposition home or self-care (01) ==
LOC: EC 13:14
DX: G89.29 Other chronic pain (principal); M54.2 Cervicalgia; R53.1 Weakness; R00.0 Tachycardia, unspecified; E11.9 Type 2 diabetes mellitus without complications; I11.0 Hypertensive heart disease with heart failure; I50.9 Heart failure, unspecified; J44.9 Chronic obstructive pulmonary disease, unspecified; E78.5 Hyperlipidemia, unspecified; K21.9 Gastro-esophageal reflux disease without esophagitis; F17.200 Nicotine dependence, unspecified, uncomplicated; Z79.84 Long term (current) use of oral hypoglycemic drugs; Z79.899 Other long term (current) drug therapy; Z88.5 Allergy status to narcotic agent
CPT/HCPCS: 36415; 93005; 83880; 80053; 84484; 85025; 85610; 85730; 81003; 99284; 96374; 96375; J2270; J1170

== ENCOUNTER 2023-06-16 02:37 | Inpatient (IN) | payer OTHER ==
--- NOTE | 2023-06-16 03:10 | ED ---
General Adult HPI - General Chief complaint: Shortness of Breath Stated complaint: SOB Time Seen by Provider: 06/16/23 02:39 Source: patient, EMS, RN notes reviewed, old records reviewed Mode of arrival: EMS Limitations: no limitations - History of Present Illness Initial comments: 61-year-old female with increasing dyspnea, she has had some increased cough. She also reports bilateral lower extremity edema. She has history of both COPD and CHF. She denies central chest pain. She does report subjective fever. Patient is slow to respond but able to answer all questions. - Related Data Home Medications Medication Instructions Recorded Confirmed Cyclobenzaprine [Flexeril] 10 mg PO HS 07/11/14 05/11/23 Omeprazole [PriLOSEC] 20 mg PO DAILY 08/05/14 05/11/23 Fenofibrate 160 mg PO DAILY 05/27/16 05/11/23 allopurinoL [Allopurinol] 100 mg PO DAILY 05/27/16 05/11/23 Glimepiride [Amaryl] 8 mg PO DAILY 06/28/17 05/11/23 rOPINIRole HCL [Requip] 0.25 mg PO HS 06/02/18 05/11/23 Atorvastatin [Lipitor] 80 mg PO HS 01/21/22 05/11/23 Empagliflozin [Jardiance] 25 mg PO DAILY 01/21/22 05/11/23 Ergocalciferol (Vitamin D2) 1,250 mcg PO MO 01/21/22 05/11/23 [Drisdol (50,000 Iu)] Magnesium Oxide [Magox 400] 400 mg PO BID 01/21/22 05/11/23 Pregabalin [Lyrica] 150 mg PO BID 01/21/22 05/11/23 metFORMIN HCL [Glucophage] 1,000 mg PO BID 01/21/22 05/11/23 HYDROcodone/APAP 5-325MG [[place] 1 tab PO Q6HR PRN 04/08/23 05/11/23 5-325] Potassium Chloride 10 meq PO DAILY 04/08/23 05/11/23 Triamcinolone 0.1% Cream [Kenalog 1 applic TOPICAL BID 04/08/23 05/11/23 0.1% Cream] levETIRAcetam [Keppra] 1,500 mg PO BID 04/08/23 05/11/23 Furosemide [Lasix] 40 mg PO BID@0900,1600 05/11/23 05/11/23 Previous Rx's Medication Instructions Recorded Insulin Detemir [Levemir Flexpen] 8 units SQ BID #3 each 04/18/23 Metoprolol Tartrate [Lopressor] 12.5 mg PO BID #60 tab 04/18/23 Nicotine 21Mg/24Hr Patch [Habitrol] 1 patch TRANSDERM DAILY #4 patch 04/18/23 Budesonide-Formot 160-4.5 Mcg 2 puff INHALATION RT-BID 30 Days 05/13/23 [Symbicort 160-4.5 Mcg Inhaler] #1 each methylPREDNISolone Dose Pack 4 mg PO DIRECTED #21 tab 05/13/23 [Medrol Dose Pack] Allergies Allergy/AdvReac Type Severity Reaction Status Date / Time codeine AdvReac Severe Abdominal Verified 05/11/23 06:52 Pain Review of Systems ROS Statement: Those systems with pertinent positive or pertinent negative responses have been documented in the HPI. ROS Other: All systems not noted in ROS Statement are negative. Past Medical History Past Medical History: Heart Failure, COPD, Diabetes Mellitus, Eye Disorder, GERD/Reflux, Hyperlipidemia, Hypertension, Osteoarthritis (OA) Additional Past Medical History / Comment(s): glaucoma. "Knees have been giving out." DDD. gout, lower back and left hip pain History of Any Multi-Drug Resistant Organisms: None Reported Past Surgical History: Back Surgery, Section, Cholecystectomy, Tubal Ligation Additional Past Surgical History / Comment(s): MARBIN PLACED FOR SCOLIOSIS as ch ild. mult left breast biopsy, Past Anesthesia/Blood Transfusion Reactions: No Reported Reaction Past Psychological History: No Psychological Hx Reported Smoking Status: Current every day smoker Past Alcohol Use History: None Reported Past Drug Use History: None Reported - Past Family History Brother(s) Family Medical History: Diabetes Mellitus Mother Family Medical History: Cancer Father Family Medical History: Cancer General Exam General appearance: lethargic Head exam: Present: atraumatic, normocephalic Eye exam: Present: normal appearance, PERRL Respiratory exam: Present: wheezes, decreased breath sounds. Absent: respiratory distress Cardiovascular Exam: Present: regular rate, normal rhythm GI/Abdominal exam: Present: soft. Absent: distended, tenderness Extremities exam: Present: pedal edema. Absent: calf tenderness Neurological exam: Present: alert, oriented X3, CN II-XII intact. Absent: motor sensory deficit Psychiatric exam: Present: normal affect, normal mood Skin exam: Present: warm, dry, intact. Absent: cyanosis, diaphoretic Course Vital Signs 06/16/23 06/16/23 02:39 04:08 Temperature 100.7 F H Pulse Rate 106 H 103 H Respiratory 20 18 Rate Blood Pressure 112/68 114/74 O2 Sat by Pulse 96 94 L Oximetry Medical Decision Making - Medical Decision Making Was pt. sent in by a medical professional or institution (, PA, CORRESPONDENCE SECTION SUPERVISOR, urgent care, hospital, or usp...) When possible be specific @ -No Did you speak to anyone other than the patient for history (EMS, parent, family, police, friend...)? What history was obtained from this source @ -No Did you review nursing and triage notes (agree or disagree)? Why? @ -I reviewed and agree with nursing and triage notes Were old charts reviewed (outside hosp., previous admission, EMS record, old EKG, old radiological studies, urgent care reports/EKG's, usp records)? Report findings @ -No old charts were reviewed Differential Diagnosis (chest pain, altered mental status, abdominal pain women, abdominal pain men, vaginal bleeding, weakness, fever, dyspnea, syncope, headache, dizziness, GI bleed, back pain, seizure, CVA, palpatations, mental health, musculoskeletal)? @ -[Differential Dyspnea: Coronary syndrome, arrhythmia, tamponade, asthma, COPD, pulmonary embolism, pneumonia, pneumothorax, pulmonary effusion, anaphylaxis, diabetic ketoacidosis, flailed chest, pulmonary contusion, diaphragmatic rupture, anemia, neuromuscular, this is not meant to be an all-inclusive list. EKG interpreted by me (3pts min.). @ EKG: Sinus tachycardia rate of 106, ID interval 161, QRS duration 89, QTC 421, no ST segment elevation. X-rays interpreted by me (1pt min.). @ -[Chest x-ray showing cardiomegaly and increased pulmonary vascular congestion. CT interpreted by me (1pt min.). @ -None done U/S interpreted by me (1pt. min.). @ -None done What testing was considered but not performed or refused? (CT, X-rays, U/S, labs)? Why? @ -None What meds were considered but not given or refused? Why? @ -None Did you discuss the management of the patient with other professionals (professionals i.e. , PA, CORRESPONDENCE SECTION SUPERVISOR, lab, RT, psych nurse, secondary social studies teacher, ruffler, teacher, special officer automat, comp field case manager)? Give summary @ -[EMH Was smoking cessation discussed for >3mins.? @ -No Was critical care preformed (if so, how long)? @ -No Were there social determinants of health that impacted care today? How? (Homelessness, low income, unemployed, alcoholism, drug addiction, transportation, low edu. Level, literacy, decrease access to med. care, half-way, rehab)? @ -No Was there de-escalation of care discussed even if they declined (Discuss DNR or withdrawal of care, Hospice)? DNR status @ -No What co-morbidities impacted this encounter? (DM, HTN, Smoking, COPD, CAD, Cancer, CVA, ARF, Chemo, Hep., AIDS, mental health diagnosis, sleep apnea, morbid obesity)? @ -COPD, CHF Was patient admitted / discharged? Hospital course, mention meds given and route, prescriptions, significant lab abnormalities, going to OR and other pertinent info. @Patient will be admitted for multifactorial dyspnea, COPD, CHF. She has a mild leukocytosis at 11, hemoglobin is 10.8 which is an elevated BUN at 10,000. She is covered for both CHF and COPD with possible developing pneumonia. Undiagnosed new problem with uncertain prognosis? @ -No Drug Therapy requiring intensive monitoring for toxicity (Heparin, Nitro, Insulin, Cardizem)? @ -No Were any procedures done? @ -No Diagnosis/symptom? @COPD, CHF Acute, or Chronic, or Acute on Chronic? @ -[Acute on chronic Uncomplicated (without systemic symptoms) or Complicated (systemic symptoms)? @ -default Side effects of treatment? @ -No Exacerbation, Progression, or Severe Exacerbation? @ -No Poses a threat to life or bodily function? How? (Chest pain, [place], [place], pneumonia, PE, COPD, DKA, ARF, appy, cholecystitis, CVA, Diverticulitis, Homicidal, Suicidal, threat to staff... and all critical care pts) @ -[Yes, hypoxic respiratory failure - Lab Data Result diagrams: 06/16/23 03:16 06/16/23 03:16 Lab Results 06/16/23 06/16/23 06/16/23 Range/Units 03:16 03:16 03:16 WBC 11.2 H (3.8-10.6) k/uL RBC 4.88 (3.80-5.40) m/uL Hgb 10.8 L (11.4-16.0) gm/dL Hct 36.5 (34.0-46.0) % MCV 74.9 L (80.0-100.0) fL MCH 22.2 L (25.0-35.0) pg MCHC 29.6 L (31.0-37.0) g/dL RDW 21.1 H (11.5-15.5) % Plt Count 285 (150-450) k/uL MPV 8.6 Neutrophils % 67 % Lymphocytes % 23 % Monocytes % 7 % Eosinophils % 2 % Basophils % 1 % Neutrophils # 7.5 (1.3-7.7) k/uL Lymphocytes # 2.5 (1.0-4.8) k/uL Monocytes # 0.8 (0-1.0) k/uL Eosinophils # 0.2 (0-0.7) k/uL Basophils # 0.1 (0-0.2) k/uL Hypochromasia Marked Poikilocytosis Moderate Anisocytosis Moderate Microcytosis Moderate PT (9.0-12.0) sec INR (<1.2) APTT (22.0-30.0) sec Sodium 141 (137-145) mmol/L Potassium 3.5 (3.5-5.1) mmol/L Chloride 90 L (98-107) mmol/L Carbon Dioxide 36 H (22-30) mmol/L Anion Gap 15 mmol/L BUN 22 H (7-17) mg/dL Creatinine 1.04 (0.52-1.04) mg/dL Est GFR (CKD-EPI)AfAm 66 (>60 ml/min/1.73 sqM) Est GFR (CKD-EPI)NonAf 57 (>60 ml/min/1.73 sqM) Glucose 70 L (74-99) mg/dL Plasma Lactic Acid Jon 2.1 H* (0.7-2.0) mmol/L Calcium 7.8 L (8.4-10.2) mg/dL Total Bilirubin 0.4 (0.2-1.3) mg/dL AST 43 H (14-36) U/L ALT 17 (4-34) U/L Alkaline Phosphatase 50 (38-126) U/L Troponin I (0.000-0.034) ng/mL NT-Pro-B Natriuret Pep 76428 pg/mL Total Protein 6.1 L (6.3-8.2) g/dL Albumin 3.5 (3.5-5.0) g/dL Influenza Type A (PCR) (Not Detectd) Influenza Type B (PCR) (Not Detectd) RSV (PCR) (Not Detectd) SARS-CoV-2 (PCR) (Not Detectd) 06/16/23 06/16/23 06/16/23 Range/Units 03:16 03:16 04:02 WBC (3.8-10.6) k/uL RBC (3.80-5.40) m/uL Hgb (11.4-16.0) gm/dL Hct (34.0-46.0) % MCV (80.0-100.0) fL MCH (25.0-35.0) pg MCHC (31.0-37.0) g/dL RDW (11.5-15.5) % Plt Count (150-450) k/uL MPV Neutrophils % % Lymphocytes % % Monocytes % % Eosinophils % % Basophils % % Neutrophils # (1.3-7.7) k/uL Lymphocytes # (1.0-4.8) k/uL Monocytes # (0-1.0) k/uL Eosinophils # (0-0.7) k/uL Basophils # (0-0.2) k/uL Hypochromasia Poikilocytosis Anisocytosis Microcytosis PT 14.7 H (9.0-12.0) sec INR 1.5 H (<1.2) APTT 24.3 (22.0-30.0) sec Sodium (137-145) mmol/L Potassium (3.5-5.1) mmol/L Chloride (98-107) mmol/L Carbon Dioxide (22-30) mmol/L Anion Gap mmol/L BUN (7-17) mg/dL Creatinine (0.52-1.04) mg/dL Est GFR (CKD-EPI)AfAm (>60 ml/min/1.73 sqM) Est GFR (CKD-EPI)NonAf (>60 ml/min/1.73 sqM) Glucose (74-99) mg/dL Plasma Lactic Acid Jon (0.7-2.0) mmol/L Calcium (8.4-10.2) mg/dL Total Bilirubin (0.2-1.3) mg/dL AST (14-36) U/L ALT (4-34) U/L Alkaline Phosphatase (38-126) U/L Troponin I 0.021 (0.000-0.034) ng/mL NT-Pro-B Natriuret Pep pg/mL Total Protein (6.3-8.2) g/dL Albumin (3.5-5.0) g/dL Influenza Type A (PCR) Not Detected (Not Detectd) Influenza Type B (PCR) Not Detected (Not Detectd) RSV (PCR) Not Detected (Not Detectd) SARS-CoV-2 (PCR) Not Detected (Not Detectd) Disposition Clinical Impression: CHF (congestive heart failure), COPD (chronic obstructive pulmonary disease) Disposition: ADMITTED IP TO THIS HOSP Condition: Stable Is patient prescribed a controlled substance at d/c from ED?: No Referrals: Shun Simmons DO [Primary Care Provider] - 1-2 days Time of Disposition: 05:42
[2023-06-16 03:39] LABS: Anisocytosis Moderate; Basophils # (A) 0.1 k/uL (0-0.2); Basophils % (A) 1 %; Eosinophils # (A) 0.2 k/uL (0-0.7); Eosinophils % (A) 2 %; HCT 36.5 % (34.0-46.0); HGB 10.8 gm/dL (11.4-16.0); Hypochromasia Marked; Lymphocytes # (A) 2.5 k/uL (1.0-4.8); Lymphocytes % (A) 23 %; MCH 22.2 pg (25.0-35.0); MCHC 29.6 g/dL (31.0-37.0); MCV 74.9 fL (80.0-100.0); Mean Platelet Volume 8.6; Microcytosis Moderate; Monocytes # (A) 0.8 k/uL (0-1.0); Monocytes % (A) 7 %; Neutrophils # (A) 7.5 k/uL (1.3-7.7); Neutrophils % (A) 67 %; Platelet Count 285 k/uL (150-450); Poikilocytosis Moderate; RBC 4.88 m/uL (3.80-5.40); RDW 21.1 % (11.5-15.5); WBC 11.2 k/uL (3.8-10.6)
[2023-06-16 03:52] LABS: ALT 17 U/L (4-34); AST 43 U/L (14-36); African American GFR (CKD) 66 (>60 ml/min/1.73 sqM); Albumin 3.5 g/dL (3.5-5.0); Alkaline Phosphatase 50 U/L (38-126); Blood Urea Nitrogen 22 mg/dL (7-17); Calcium 7.8 mg/dL (8.4-10.2); Chloride 90 mmol/L (98-107); Glucose 70 mg/dL (74-99); Non-African American GFR(CKD) 57 (>60 ml/min/1.73 sqM); Potassium 3.5 mmol/L (3.5-5.1); Sodium 141 mmol/L (137-145); Total Bilirubin 0.4 mg/dL (0.2-1.3); Total Protein 6.1 g/dL (6.3-8.2)
[2023-06-16 03:59] LABS: NT-Pro-B-Type Natriuretic Pept 10900 pg/mL
[2023-06-16 04:00] LABS: Anion Gap 15 mmol/L; Carbon Dioxide 36 mmol/L (22-30)
[2023-06-16 04:28] LABS: INR 1.5 (<1.2); Partial Thromboplastin Time 24.3 sec (22.0-30.0); Prothrombin Time 14.7 sec (9.0-12.0)
[2023-06-16] MEDS ORDERED: FUROSEMIDE 10 MG/ML 4 ML VIAL IV STA (05:34)
[2023-06-16] MEDS ORDERED: AZITHROMYCIN 500 MG in SODIUM CHLORIDE 0.9% 250 ML IVPB STA (05:38)
[2023-06-16] MEDS ORDERED: NALOXONE 0.4 MG/ML 1 ML VIAL IVP PRN (05:39)
[2023-06-16] MEDS ORDERED: IPRATROPIUM-ALBUTEROL 3 ML NEB INHALATION PRN (05:39)
--- NOTE | 2023-06-16 06:43 | XR ---
EXAMINATION TYPE: XR chest 2V DATE OF EXAM: 06/16/2023 3:53 AM COMPARISON: Chest radiographs from 06/11/2023 TECHNIQUE: XR chest 2V Frontal and lateral views of the chest. CLINICAL INDICATION:Female, 62 years old with history of difficulty breathing; FINDINGS: Patient is rotated which limits evaluation. Lungs/Pleura: There is no evidence of pleural effusion, focal consolidation, or pneumothorax. Pulmonary vascularity: Mild pulmonary vascular congestion. Heart/mediastinum: Cardiomediastinal silhouette is enlarged and stable. Musculoskeletal: No acute osseous pathology. Spinal stabilization rods redemonstrated. IMPRESSION: Cardiomegaly and mild pulmonary vascular congestion. Correlate with BNP for congestive heart failure.
[2023-06-16] MEDS: methylPREDNISolone SOD SUCCI 125 MG/2 ML VIAL IV SCH ×4 (07:33→23:09)
[2023-06-16] MEDS ORDERED: DEXTROSE 50% SYRINGE 50 ML IVP STA (09:17)
[2023-06-16 09:21] LABS: Glucose,Whole Blood 38 mg/dL (70-110)
[2023-06-16] MEDS: IPRATROPIUM-ALBUTEROL 3 ML NEB INHALATION SCH ×4 (09:34→19:39)
[2023-06-16 09:36] LABS: Glucose,Whole Blood 120 mg/dL (70-110)
[2023-06-16] MEDS ORDERED: LORazepam 2 MG/ML INJ IV STA (10:35)
[2023-06-16 10:41] LABS: Appearance,Urine Clear (Clear); Bilirubin,Urine Negative (Negative); Blood,Urine Negative (Negative); Color,Urine Yellow; Glucose,Urine (UA) 2+ (Negative); Ketones,Urine Negative (Negative); Leukocyte Esterase,Urine Negative (Negative); Nitrite,Urine Negative (Negative); Protein,Urine Negative (Negative); Specific Gravity,Urine 1.015 (1.001-1.035); Urobilinogen,Urine <2.0 mg/dL (<2.0)
[2023-06-16] MEDS ORDERED: DEXTROSE 50% SYRINGE 50 ML IVP PRN ×2 (10:49)
[2023-06-16 10:53] LABS: Glucose,Whole Blood 101 mg/dL (70-110)
[2023-06-16 11:19] LABS: ABG Base Excess 18.1 mmol/L; ABG Oxygen Saturation 91.4 % (94-97); ABG PH 7.28 (7.35-7.45); ABG PO2 76 mmHg (83-108); ABG TCO2 48 mmol/L (19-24); Allen Test Performed? Yes
--- NOTE | 2023-06-16 11:19 | CT ---
EXAMINATION TYPE: CT brain wo con DATE OF EXAM: 06/16/2023 COMPARISON: 09/14/2022 INDICATION: altered mental status DLP: 1099.4 mGycm, Automated exposure control for dose reduction was used. CONTRAST: None CT of the brain is performed utilizing 3 mm thick sections through the posterior fossa and 3 mm thick sections through the remaining calvarium. Study is performed within 24 hours of arrival to the hosp [facility]. No abnormal hyperdensity is present to suggest an acute intracranial hemorrhage. No mass lesion is evident. Minimal physiologic basal ganglion calcifications present. No acute infarcts are evident. Ventricles and sulci are appropriate for the patient age. Paranasal sinuses and mastoid air cells within the [id number] are clear. IMPRESSIONS: 1. No acute intracranial process. Follow-up MRI can be performed as clinically indicated.
[2023-06-16 11:22] LABS: ABG HCO3 45 mmol/L (21-25); ABG PCO2 95 mmHg (35-45)
--- NOTE | 2023-06-16 12:07 | HP ---
HISTORY AND PHYSICAL CHIEF COMPLAINT: Shortness of breath. HISTORY OF PRESENT ILLNESS: This is a 62-year-old woman with a past medical history of COPD, CHF, was admitted to [facility] with shortness of breath. The patient also has lower extremity edema. Subsequently, the patient had some subjective fever also, but the chest x-ray on admission, which I reviewed personally, showed possible CHF and COPD. The patient became progressively confused and combative, and the patient was closely monitored. At this time, the patient is on 5 L nasal cannula. Currently, the patient is confused, unable to give a coherent history. Most of the history taken by discussion with staff and review of chart at this time. PAST MEDICAL HISTORY: Reviewed, include COPD, CHF. Rest of the history and rest of the chart are also reviewed. HOME MEDICATIONS: Reviewed, include Requip. Dose and rest of the medications reviewed. ALLERGIES: Codeine. Family history, social history, and review of systems could not be taken. The patient with history of current smoking per chart. PHYSICAL EXAMINATION: VITAL SIGNS: Pulse is 99, blood pressure 111/82, respirations 22, temperature pulse ox 94% on 5 L. HEENT: Conjunctivae normal. NECK: No jugular venous distention. CARDIOVASCULAR: S1, S2 muffled. RESPIRATION: Breath sounds diminished at the bases. Bilateral scattered rhonchi. Expiratory wheezing also present. ABDOMEN: Soft, obese. LEGS: No edema. No swelling. NERVOUS SYSTEM: No focal deficits. LABORATORY DATA: Reviewed. ASSESSMENT: 1. Shortness of breath, possible chronic obstructive pulmonary disease and congestive heart failure acute exacerbation with acute hypoxic respiratory failure. 2. Acute metabolic encephalopathy. 3. Increased WBC. 4. Diabetes mellitus, type 2. 5. Gastroesophageal reflux disease. 6. Hypertension. 7. Hyperlipidemia. RECOMMENDATIONS: I recommend to continue intensive bronchodilator treatment. Otherwise, the viral titers are negative. Empiric antibiotics. Procalcitonin, ABG, CT scan of the brain. Cardiology and Pulmonology consultations. Cautious diuresis. Prognosis is extremely guarded because of multiple complex medical issues. Follow recommendations will follow. See orders for details. The patient might require an ICU admission. MMODL / IJN: [id number] /
[2023-06-16] MEDS: INSULIN ASPART (NovoLOG) 100 UNIT/ML VIAL SQ SCH ×3 (12:08→20:52)
[2023-06-16] MEDS ORDERED: Potassium Replacement Protocol 1 EACH MISC MISCELLANE PRN (12:21)
[2023-06-16 12:40] LABS: Glucose,Whole Blood 102 mg/dL (70-110)
[2023-06-16] MEDS: FORMOTEROL FUMARATE 20 MCG/2 ML NEBU INHALATION SCH ×2 (12:43→19:38)
[2023-06-16] MEDS: BUDESONIDE 1 MG/2 ML NEBU INHALATION SCH ×2 (12:43→19:38)
[2023-06-16] MEDS: POTASSIUM CHLORIDE 10 MEQ in WATER FOR INJECTION 1 100ML.BAG IVPB SCH ×8 (12:49→23:09)
[2023-06-16] MEDS: FUROSEMIDE 10 MG/ML 4 ML VIAL IV SCH ×3 (12:49→23:10)
--- NOTE | 2023-06-16 12:52 | P.CNPUL ---
History of Present Illness Consult date: 06/16/23 Requesting physician: Lauren Rios Reason for consult: dyspnea, COPD Chief complaint: Cough and shortness of breath History of present illness: This is a 62-year-old female, familiar to our service, patient was seen actually a month ago during her last admission at [facility]. Patient is known to have history of chronic diastolic congestive heart failure, COPD, glaucoma, chronic low back pain, hypertension, degenerative joint disease, chronic hypoxic respiratory failure on home oxygen, chronic and ongoing tobacco dependence, type 2 diabetes, dyslipidemia, patient had multiple admissions in the past with altered mental status and hypoxemia as well as hypercapnia. Could not get much history from the patient. Apparently the patient was brought into the ER with complaints of cough and shortness of breath. Apparently upon arrival the patient was extremely agitated, and that 3 people to hold him down, and the patient was given 1 dose of Ativan, and when I evaluated the patient she was clearly obtunded, could not even arouse the patient with deep painful stimuli, hence I recommended placing the patient on BiPAP, ABG prior to placement on BiPAP showed a significant hypercapnia, pCO2 of 95 pH of 7.28 and pO2 was 76. This was on 50% FiO2. I recommended that the patient goes on BiPAP, and instead of admitting the patient to the medical floor, and recommended admitting the patient to the ICU setting. Chest x-ray showed evidence of pulmonary edema labs showed significantly elevated BNP level, relatively normal CBC with a hemoglobin of 10.8, WBC count 11.2, basic metabolic profile was relatively normal. Bicarb was noted to be 36 indicative of chronic hypercapnia and metabolic compensation. BNP level was 10,900, influenza RSV and COVID-19 screening were made Review of Systems ROS unobtainable: due to mental status Past Medical History Past Medical History: Heart Failure, COPD, Diabetes Mellitus, Eye Disorder, GERD/Reflux, Hyperlipidemia, Hypertension, Osteoarthritis (OA) Additional Past Medical History / Comment(s): glaucoma. "Knees have been giving out." DDD. gout, lower back and left hip pain History of Any Multi-Drug Resistant Organisms: None Reported Past Surgical History: Back Surgery, Section, Cholecystectomy, Tubal Ligation Additional Past Surgical History / Comment(s): MARBIN PLACED FOR SCOLIOSIS as child. mult left breast biopsy, Past Anesthesia/Blood Transfusion Reactions: No Reported Reaction Past Psychological History: No Psychological Hx Reported Smoking Status: Current every day smoker Past Alcohol Use History: None Reported Past Drug Use History: None Reported - Past Family History Brother(s) Family Medical History: Diabetes Mellitus Mother Family Medical History: Cancer Father Family Medical History: Cancer Medications and Allergies Home Medications Medication Instructions Recorded Confirmed Type Cyclobenzaprine [Flexeril] 10 mg PO HS 07/11/14 06/16/23 History Omeprazole [PriLOSEC] 20 mg PO DAILY 08/05/14 06/16/23 History Fenofibrate 160 mg PO DAILY 05/27/16 06/16/23 History allopurinoL [Allopurinol] 100 mg PO DAILY 05/27/16 06/16/23 History Glimepiride [Amaryl] 8 mg PO DAILY 06/28/17 06/16/23 History rOPINIRole HCL [Requip] 0.25 mg PO HS 06/02/18 06/16/23 History Atorvastatin [Lipitor] 80 mg PO HS 01/21/22 06/16/23 History Empagliflozin [Jardiance] 25 mg PO DAILY 01/21/22 06/16/23 History Ergocalciferol (Vitamin D2) 1,250 mcg PO MO 01/21/22 06/16/23 History [Drisdol (50,000 Iu)] Magnesium Oxide [Magox 400] 400 mg PO BID 01/21/22 06/16/23 History Pregabalin [Lyrica] 150 mg PO BID 01/21/22 06/16/23 History metFORMIN HCL [Glucophage] 1,000 mg PO BID 01/21/22 06/16/23 History HYDROcodone/APAP 5-325MG [[place] 1 tab PO Q6HR PRN 04/08/23 06/16/23 History 5-325] Potassium Chloride 10 meq PO DAILY 04/08/23 06/16/23 History Triamcinolone 0.1% Cream [Kenalog 1 applic TOPICAL BID 04/08/23 06/16/23 History 0.1% Cream] levETIRAcetam [Keppra] 1,500 mg PO BID 04/08/23 06/16/23 History Insulin Detemir [Levemir Flexpen] 8 units SQ BID #3 each 04/18/23 06/16/23 Rx Metoprolol Tartrate [Lopressor] 12.5 mg PO BID #60 tab 04/18/23 06/16/23 Rx Nicotine 21Mg/24Hr Patch [Habitrol] 1 patch TRANSDERM DAILY #4 patch 04/18/23 06/16/23 Rx Furosemide [Lasix] 40 mg PO DAILY 05/11/23 06/16/23 History Budesonide-Formot 160-4.5 Mcg 2 puff INHALATION RT-BID 30 Days 05/13/23 06/16/23 Rx [Symbicort 160-4.5 Mcg Inhaler] #1 each Allergies Allergy/AdvReac Type Severity Reaction Status Date / Time codeine AdvReac Severe Abdominal Verified 06/16/23 08:08 Pain Physical Exam Vitals: Vital Signs Temp Pulse Resp BP Pulse Ox FiO2 06/16/23 12:21 96 14 100/67 89 L 06/16/23 11:43 100 13 124/69 92 L 06/16/23 11:32 40 06/16/23 11:23 102 H 22 132/74 93 L 06/16/23 09:43 101 H 06/16/23 09:35 99 06/16/23 08:00 97.1 F L 99 22 111/84 94 L 06/16/23 06:16 102 H 06/16/23 06:10 102 H 06/16/23 06:00 102 H 18 128/79 95 06/16/23 04:08 103 H 18 114/74 94 L 06/16/23 02:39 100.7 F H 106 H 20 112/68 96 Intake and Output 06/15/23 06/16/23 06/16/23 22:59 06:59 14:59 Other: Weight 83.007 kg Physical Exam: Revealed a 62-year-old female in no distress however the patient is noted to be obtunded, could not be arousable even with deep painful stimuli Head: Atraumatic, normocephalic HEENT:[Neck is supple.] [No neck masses.] [No thyromegaly.] [No JVD.] Chest: Symmetrical chest expansion diminished breath sound bilaterally and crackles noted. Cardiac Exam: Distant S1 and S2, no S3 gallop, 2/6 systolic murmur thought the precordium. Abdomen: [Obese, Soft, nontender, no megaly, no rebound, no guarding, normal bowel sounds.] Extremities: Trace of edema, no clubbing, no cyanosis..] Neurological Exam: Could not assess, patient is obtunded, however apparently prior to Ativan given the patient was extremely restless and agitated and took many people to hold him down. Psychiatric: Could not assess. Results - Laboratory Findings CBC and BMP: 06/16/23 03:16 06/16/23 03:16 ABG ABG pH 7.28 (7.35-7.45) L 06/16/23 11:15 ABG pCO2 95 mmHg (35-45) H* 06/16/23 11:15 ABG pO2 76 mmHg (83-108) L 06/16/23 11:15 ABG O2 Saturation 91.4 % (94-97) L 06/16/23 11:15 PT/INR, D-dimer PT 14.7 sec (9.0-12.0) H 06/16/23 04:02 INR 1.5 (<1.2) H 06/16/23 04:02 Abnormal lab findings: Abnormal Labs 06/16/23 06/16/23 06/16/23 03:16 03:16 03:16 WBC 11.2 H Hgb 10.8 L MCV 74.9 L MCH 22.2 L MCHC 29.6 L RDW 21.1 H PT INR ABG pH ABG pCO2 ABG pO2 ABG HCO3 ABG Total CO2 ABG O2 Saturation Chloride 90 L Carbon Dioxide 36 H BUN 22 H Glucose 70 L POC Glucose (mg/dL) Plasma Lactic Acid Jon 2.1 H* Calcium 7.8 L AST 43 H Total Protein 6.1 L Urine Glucose (UA) 06/16/23 06/16/23 06/16/23 04:02 09:14 09:34 WBC Hgb MCV MCH MCHC RDW PT 14.7 H INR 1.5 H ABG pH ABG pCO2 ABG pO2 ABG HCO3 ABG Total CO2 ABG O2 Saturation Chloride Carbon Dioxide BUN Glucose POC Glucose (mg/dL) 38 L 120 H Plasma Lactic Acid Jon Calcium AST Total Protein Urine Glucose (UA) 06/16/23 06/16/23 10:00 11:15 WBC Hgb MCV MCH MCHC RDW PT INR ABG pH 7.28 L ABG pCO2 95 H* ABG pO2 76 L ABG HCO3 45 H* ABG Total CO2 48 H ABG O2 Saturation 91.4 L Chloride Carbon Dioxide BUN Glucose POC Glucose (mg/dL) Plasma Lactic Acid Jon Calcium AST Total Protein Urine Glucose (UA) 2+ H - Diagnostic Findings Chest x-ray: image reviewed (I have noted in HPI) Additional studies: CT of the brain showed no acute intracranial process Assessment and Plan Assessment: Impression: Acute on chronic hypoxic and hypercapnic respiratory failure Acute on chronic diastolic congestive heart failure Severe underlying COPD with chronic hypercapnia, presently seems to be in active Acute metabolic encephalopathy secondary mostly to hypercapnia Chronic ongoing tobacco dependence Type 2 diabetes without complications Dyslipidemia Benign essential hypertension Degenerative joint disease, history of gout Recommendation: After seeing the patient in the ER, I'm recommending that the patient goes to the ICU consider going to the floor Patient to be placed on BiPAP 12 6/100% and FiO2 to be titrated down maintaining O2 saturation just above 90% Continue Lasix 40 mg IV push every 8 hours Continue Rocephin empirically, cultures are pending including blood cultures and urine cultures also continue Zithromax empirically Continue GI prophylaxis/Protonix Insulin as per protocol/Accu-Cheks with sliding scale coverage Continue methylprednisolone Continue updrafts/DuoNeb and Pulmicort. Repeat ABG after 1 hour of BiPAP We will continue to follow Patient is critically ill, definitely needs ICU admission considering her profound hypercapnia. Time with Patient: Greater than 30
[2023-06-16] MEDS ORDERED: LORazepam 2 MG/ML INJ IV PRN ×2 (14:10→14:11)
[2023-06-16 14:46] LABS: ABG Base Excess 20.2 mmol/L; ABG Oxygen Saturation 92.9 % (94-97); ABG PH 7.36 (7.35-7.45); ABG PO2 75 mmHg (83-108); ABG TCO2 48 mmol/L (19-24); Allen Test Performed? Yes
[2023-06-16 14:47] LABS: ABG PCO2 81 mmHg (35-45)
[2023-06-16 14:48] LABS: ABG HCO3 46 mmol/L (21-25)
[2023-06-16 17:42] LABS: Glucose,Whole Blood 108 mg/dL (70-110)
[2023-06-16 20:16] LABS: Glucose,Whole Blood 114 mg/dL (70-110)
[2023-06-16] MEDS: HEPARIN SODIUM,PORCINE 5,000 UNIT/ML 1 ML VIAL SQ SCH (20:44)
[2023-06-16] MEDS: MAGNESIUM OXIDE 400 MG TAB PO SCH (20:50)
[2023-06-16] MEDS: INSULIN DETEMIR (LEVEMIR) 100 UNIT/ML SYR SQ SCH (20:50)
[2023-06-16] MEDS: METOPROLOL TARTRATE 12.5 MG TAB PO SCH (20:50)
[2023-06-16] MEDS: ATORVASTATIN 80 MG TAB PO SCH (20:51)
[2023-06-16] MEDS: levETIRAcetam IV 1,500 MG in SALINE 1 100ML.BAG IVPB SCH (20:53)
[2023-06-16] MEDS ORDERED: levETIRAcetam IV 1,500 MG in SODIUM CHLORIDE 0.9% 250 ML IVPB SCH (21:00)
[2023-06-17 05:18] LABS: Anisocytosis Moderate; Basophils % (A) 0 %; Eosinophils % (A) 0 %; HCT 36.7 % (34.0-46.0); HGB 10.8 gm/dL (11.4-16.0); Hypochromasia Marked; Lymphocytes % (A) 11 %; MCH 22.5 pg (25.0-35.0); MCHC 29.3 g/dL (31.0-37.0); MCV 76.6 fL (80.0-100.0); Mean Platelet Volume 9.3; Microcytosis Moderate; Monocytes # (A) 0.3 k/uL (0-1.0); Monocytes % (A) 4 %; Neutrophils # (A) 7.5 k/uL (1.3-7.7); Neutrophils % (A) 84 %; Platelet Count 358 k/uL (150-450); Poikilocytosis Moderate; RBC 4.79 m/uL (3.80-5.40); RDW 20.8 % (11.5-15.5); WBC 8.9 k/uL (3.8-10.6)
[2023-06-17 05:31] LABS: ALT 16 U/L (4-34); AST 40 U/L (14-36); African American GFR (CKD) >90 (>60 ml/min/1.73 sqM); Albumin 3.3 g/dL (3.5-5.0); Alkaline Phosphatase 52 U/L (38-126); Blood Urea Nitrogen 18 mg/dL (7-17); Calcium 7.9 mg/dL (8.4-10.2); Chloride 89 mmol/L (98-107); Glucose 122 mg/dL (74-99); Magnesium 1.3 mg/dL (1.6-2.3); Non-African American GFR(CKD) >90 (>60 ml/min/1.73 sqM); Potassium 3.7 mmol/L (3.5-5.1); Sodium 141 mmol/L (137-145); Total Bilirubin 0.7 mg/dL (0.2-1.3); Total Protein 5.8 g/dL (6.3-8.2)
[2023-06-17 05:38] LABS: Anion Gap 11 mmol/L
[2023-06-17 05:46] LABS: Carbon Dioxide 41 mmol/L (22-30)
[2023-06-17 06:27] LABS: Glucose,Whole Blood 125 mg/dL (70-110)
[2023-06-17] MEDS: methylPREDNISolone SOD SUCCI 125 MG/2 ML VIAL IV SCH ×3 (06:56→17:13)
[2023-06-17] MEDS ORDERED: Potassium Replacement Protocol 1 EACH MISC MISCELLANE PRN (07:15)
[2023-06-17] MEDS ORDERED: Magnesium Replacement Protocol 1 EACH MISC MISCELLANE PRN (07:17)
[2023-06-17] MEDS: INSULIN DETEMIR (LEVEMIR) 100 UNIT/ML SYR SQ SCH ×2 (07:18→21:25)
[2023-06-17] MEDS: INSULIN ASPART (NovoLOG) 100 UNIT/ML VIAL SQ SCH ×4 (07:18→21:00)
[2023-06-17] MEDS: IPRATROPIUM-ALBUTEROL 3 ML NEB INHALATION SCH ×4 (07:37→18:37)
[2023-06-17] MEDS: FORMOTEROL FUMARATE 20 MCG/2 ML NEBU INHALATION SCH ×2 (07:37→18:37)
[2023-06-17] MEDS: BUDESONIDE 1 MG/2 ML NEBU INHALATION SCH ×2 (07:38→18:38)
[2023-06-17] MEDS: allopurinoL 100 MG TAB PO SCH (08:22)
[2023-06-17] MEDS: FENOFIBRATE 160 MG TAB PO SCH (08:22)
[2023-06-17] MEDS: MAGNESIUM OXIDE 400 MG TAB PO SCH ×2 (08:23→21:10)
[2023-06-17] MEDS: METOPROLOL TARTRATE 12.5 MG TAB PO SCH ×2 (08:23→21:10)
[2023-06-17] MEDS ORDERED: LORazepam 2 MG/ML INJ IV STA (08:53)
[2023-06-17] MEDS: POTASSIUM CHLORIDE 10 MEQ in WATER FOR INJECTION 1 100ML.BAG IVPB SCH ×4 (09:09→17:13)
[2023-06-17] MEDS: DEXMEDETOMIDINE/0.9% NACL(PMX) 400 MCG in EMPTY BAG 1 BAG IV SCH ×2 (09:09→14:35)
--- NOTE | 2023-06-17 09:42 | P.CRDCN ---
History of Present Illness Consult date: 06/17/23 Consult reason: congestive heart failure History of present illness: The patient is a 62-year-old female past medical history of COPD, diabetes, h ypertension, hyperlipidemia, and diastolic heart failure, who was admitted to the hospital with worsening shortness of breath as well as mental status changes. She was found to be hypoxic and has been placed on BiPAP. The patient had a similar admission back in May for congestive heart failure and COPD exacerbation. DIAGNOSTICS: EKG shows sinus tachycardia with nonspecific ST and T wave abnormalities Chest x-ray shows cardiomegaly and mild pulmonary vascular congestion Computed tomography scan of the brain shows no acute intracranial process Echocardiogram on 05/11/2023 showed preserved LV function with mildly dilated RV and moderate tricuspid regurgitation Lab data: WBC 8.9, hemoglobin 10.8, hematocrit 36.7, platelet 358, sodium 141, potassium 3.7, carbon dioxide 41, BUN 18, creatinine 0.68, hemoglobin A1c 7.6, magnesium 1.3, AST 40, ALT 16, ALP 52, BNP 10,000 REVIEW OF SYSTEMS: Unable to report due to mental status. PHYSICAL EXAMINATION: This is a 62-year-old female. In mild respiratory distress and agitated. HEENT: Head is atraumatic, normocephalic. Pupils are equal, round.There is no jugular venous distention. CHEST EXAMINATION: Lungs are coarse to auscultation. No chest wall tenderness is noted on palpation or with deep breathing. HEART EXAMINATION: Heart regular rate and rhythm. S1, S2 heard. No murmurs, gallops or rub. ABDOMEN: Soft, nontender. Bowel sounds are heard. No organomegaly noted. EXTREMITIES: 2+ peripheral pulses with no evidence of peripheral edema. NEUROLOGIC EXAMINATION: Patient is awake, alert and oriented x1. FINAL ASSESSMENT AND PLAN: Acute hypoxic and hypercapnic respiratory failure Acute on chronic diastolic congestive heart failure Severe COPD with chronic hypercapnia Acute metabolic encephalopathy Current smoker Diabetes mellitus Dyslipidemia Hypertension PLAN: Resume home oral medications Continue IV Lasix Aggressive pulmonary hygiene Further recommendations based on clinical course I am dictating on behalf of Dr Louis Miller's history/physical and assessment/plan. Past Medical History Past Medical History: Heart Failure, COPD, Diabetes Mellitus, Eye Disorder, GERD/Reflux, Hyperlipidemia, Hypertension, Osteoarthritis (OA) Additional Past Medical History / Comment(s): glaucoma. "Knees have been giving out." DDD. gout, lower back and left hip pain History of Any Multi-Drug Resistant Organisms: None Reported Past Surgical History: Back Surgery, Section, Cholecystectomy, Tubal Ligation Additional Past Surgical History / Comment(s): MARBIN PLACED FOR SCOLIOSIS as child. mult left breast biopsy, Past Anesthesia/Blood Transfusion Reactions: No Reported Reaction Past Psychological History: No Psychological Hx Reported Smoking Status: Current every day smoker Past Alcohol Use History: None Reported Past Drug Use History: None Reported - Past Family History Brother(s) Family Medical History: Diabetes Mellitus Mother Family Medical History: Cancer Father Family Medical History: Cancer Medications and Allergies Home Medications Medication Instructions Recorded Confirmed Type Cyclobenzaprine [Flexeril] 10 mg PO HS 07/11/14 06/16/23 History Omeprazole [PriLOSEC] 20 mg PO DAILY 08/05/14 06/16/23 History Fenofibrate 160 mg PO DAILY 05/27/16 06/16/23 History allopurinoL [Allopurinol] 100 mg PO DAILY 05/27/16 06/16/23 History Glimepiride [Amaryl] 8 mg PO DAILY 06/28/17 06/16/23 History rOPINIRole HCL [Requip] 0.25 mg PO HS 06/02/18 06/16/23 History Atorvastatin [Lipitor] 80 mg PO HS 01/21/22 06/16/23 History Empagliflozin [Jardiance] 25 mg PO DAILY 01/21/22 06/16/23 History Ergocalciferol (Vitamin D2) 1,250 mcg PO MO 01/21/22 06/16/23 History [Drisdol (50,000 Iu)] Magnesium Oxide [Magox 400] 400 mg PO BID 01/21/22 06/16/23 History Pregabalin [Lyrica] 150 mg PO BID 01/21/22 06/16/23 History metFORMIN HCL [Glucophage] 1,000 mg PO BID 01/21/22 06/16/23 History HYDROcodone/APAP 5-325MG [Revelo 1 tab PO Q6HR PRN 04/08/23 06/16/23 History 5-325] Potassium Chloride 10 meq PO DAILY 04/08/23 06/16/23 History Triamcinolone 0.1% Cream [Kenalog 1 applic TOPICAL BID 04/08/23 06/16/23 History 0.1% Cream] levETIRAcetam [Keppra] 1,500 mg PO BID 04/08/23 06/16/23 History Insulin Detemir [Levemir Flexpen] 8 units SQ BID #3 each 04/18/23 06/16/23 Rx Metoprolol Tartrate [Lopressor] 12.5 mg PO BID #60 tab 04/18/23 06/16/23 Rx Nicotine 21Mg/24Hr Patch [Habitrol] 1 patch TRANSDERM DAILY #4 patch 04/18/23 06/16/23 Rx Furosemide [Lasix] 40 mg PO DAILY 05/11/23 06/16/23 History Budesonide-Formot 160-4.5 Mcg 2 puff INHALATION RT-BID 30 Days 05/13/23 06/16/23 Rx [Symbicort 160-4.5 Mcg Inhaler] #1 each Allergies Allergy/AdvReac Type Severity Reaction Status Date / Time codeine AdvReac Severe Abdominal Verified 06/16/23 08:08 Pain Physical Exam Vitals: Vital Signs Temp Pulse Resp BP Pulse Ox FiO2 06/17/23 08:04 92 06/17/23 07:53 86 06/17/23 07:52 84 06/17/23 07:40 85 06/17/23 07:38 40 06/17/23 07:00 95 17 109/64 91 L 40 06/17/23 06:30 88 14 109/64 85 L 06/17/23 06:00 87 13 110/63 90 L 50 06/17/23 05:30 93 12 110/63 92 L 50 06/17/23 05:00 98.1 F 103 H 23 116/73 93 L 06/17/23 04:30 96 20 116/73 89 L 50 06/17/23 04:00 96 26 H 121/71 94 L 06/17/23 03:30 94 17 121/71 93 L 06/17/23 03:09 50 06/17/23 03:00 87 12 117/69 89 L 06/17/23 02:30 97 12 117/69 91 L 06/17/23 02:00 92 12 111/93 90 L 06/17/23 01:30 96 12 111/93 90 L 06/17/23 01:00 91 13 119/68 92 L 06/17/23 00:30 96 11 L 119/68 94 L 06/17/23 00:11 90 12 119/68 88 L 06/17/23 00:00 98.0 F 92 12 121/67 90 L 50 06/16/23 23:30 104 H 11 L 121/67 93 L 06/16/23 23:27 50 06/16/23 23:00 101 H 12 127/84 90 L 06/16/23 22:30 105 H 16 127/84 90 L 06/16/23 22:00 101 H 11 L 133/86 91 L 06/16/23 21:30 105 H 20 133/86 92 L 06/16/23 21:00 101 H 12 127/74 93 L 06/16/23 20:30 98.2 F 105 H 18 127/74 06/16/23 20:00 96 20 120/64 93 L 06/16/23 19:54 98 06/16/23 19:45 92 06/16/23 19:44 104 H 06/16/23 19:41 97 50 06/16/23 19:30 96 21 120/64 93 L 06/16/23 19:00 92 20 126/68 93 L 06/16/23 18:00 92 12 118/71 89 L 06/16/23 17:00 93 16 123/66 91 L 06/16/23 16:00 98.4 F 93 16 128/73 91 L 50 06/16/23 15:58 50 06/16/23 15:15 101 H 18 06/16/23 15:01 107 H 18 50 06/16/23 15:00 98 16 127/71 88 L 06/16/23 14:00 92 14 142/81 88 L 50 06/16/23 13:06 102 H 06/16/23 13:00 101 H 12 130/81 93 L 06/16/23 12:43 101 H 06/16/23 12:40 98.3 F 100 29 H 90 L 40 06/16/23 12:30 96 14 100/67 89 L 06/16/23 11:43 100 13 124/69 92 L 06/16/23 11:32 40 06/16/23 11:23 102 H 22 132/74 93 L 06/16/23 09:43 101 H 06/16/23 09:35 99 Intake and Output 08/10/23 08/11/23 08/11/23 22:59 06:59 14:59 Intake Total 600 100 Output Total 1465 970 75 Balance -865 -870 -75 Intake: Intake, IV Titration 600 100 Amount Potassium Chloride 10 meq 400 100 In Water For Injection 1 100ml.bag @ 100 mls/hr IVPB Q1HR [facility] Rx#: [id number] Potassium Chloride 10 meq 100 In Water For Injection 1 100ml.bag @ 100 mls/hr IVPB Q1HR [facility] Rx#: [id number] levETIRAcetam IV 1,500 mg 100 In Saline 1 100ml.bag @ 400 mls/hr IVPB Q12HR [facility] Rx#:[id number] Output: Urine 1465 970 75 Other: Voiding Method Indwelling Catheter Indwelling Catheter Weight 90.8 kg Results 06/17/23 04:31 06/17/23 04:31 Cardiac Enzymes 06/17/23 Range/Units 04:31 AST 40 H (14-36) U/L CBC 06/17/23 Range/Units 04:31 WBC 8.9 (3.8-10.6) k/uL RBC 4.79 (3.80-5.40) m/uL Hgb 10.8 L (11.4-16.0) gm/dL Hct 36.7 (34.0-46.0) % Plt Count 358 (150-450) k/uL Comprehensive Metabolic Panel 06/16/23 06/17/23 Range/Units 18:30 04:31 Sodium 141 (137-145) mmol/L Potassium 3.3 L 3.7 (3.5-5.1) mmol/L Chloride 89 L (98-107) mmol/L Carbon Dioxide 41 H* (22-30) mmol/L BUN 18 H (7-17) mg/dL Creatinine 0.68 (0.52-1.04) mg/dL Glucose 122 H (74-99) mg/dL Calcium 7.9 L (8.4-10.2) mg/dL AST 40 H (14-36) U/L ALT 16 (4-34) U/L Alkaline Phosphatase 52 (38-126) U/L Total Protein 5.8 L (6.3-8.2) g/dL Albumin 3.3 L (3.5-5.0) g/dL Current Medications Generic Name Dose Route Start Last Admin Trade Name Freq PRN Reason Stop Dose Admin Albuterol/Ipratropium 3 ml 06/16/23 05:39 06/16/23 06:04 Ipratropium-Albuterol 3 Ml Neb INHALATION 3 ml RT-Q2H PRN Administration Shortness Of Breath Or Wheezing Albuterol/Ipratropium 3 ml 06/16/23 08:00 06/17/23 07:37 Ipratropium-Albuterol 3 Ml Neb INHALATION 3 ml RT-QID [facility] Administration Allopurinol 100 mg 06/17/23 09:00 06/17/23 08:22 Allopurinol 100 Mg Tab PO Not Given DAILY [facility] Atorvastatin Calcium 80 mg 06/16/23 21:00 06/16/23 20:51 Atorvastatin 80 Mg Tab PO Not Given HS [facility] Budesonide 1 mg 06/16/23 12:00 06/17/23 07:38 Budesonide 1 Mg/2 Ml Nebu INHALATION 1 mg RT-BID [facility] Administration Dextrose/Water 25 ml 06/16/23 10:49 Dextrose 50% Syringe 50 Ml IVP PER PROTOCOL PRN Hypoglycemia Protocol Dextrose/Water 50 ml 06/16/23 10:49 Dextrose 50% Syringe 50 Ml IVP PER PROTOCOL PRN Hypoglycemia Protocol Ergocalciferol 1,250 mcg 06/20/23 09:00 Ergocalciferol 1,250 Mcg (50,000 Iu) Capsule PO MO [facility] Fenofibrate 160 mg 06/17/23 09:00 06/17/23 08:22 Fenofibrate 160 Mg Tab PO Not Given DAILY [facility] Formoterol Fumarate 20 mcg 06/16/23 12:00 06/17/23 07:37 Formoterol Fumarate 20 Mcg/2 Ml Nebu INHALATION 20 mcg RT-BID [facility] Administration Furosemide 40 mg 06/16/23 12:00 06/16/23 23:10 Furosemide 10 Mg/Ml 4 Ml Vial IV 40 mg Q8HR [facility] Administration Heparin Sodium (Porcine) 5,000 unit 06/16/23 21:00 06/16/23 20:44 Heparin Sodium,Porcine 5,000 Unit/Ml 1 Ml Vial SQ 5,000 unit Q12HR [facility] Administration Ceftriaxone Sodium 2 gm/ 50 mls @ 100 mls/hr 06/17/23 09:00 Sodium Chloride IVPB Q24HR [facility] Protocol Levetiracetam 1,500 mg/ IV 100 mls @ 400 mls/hr 06/16/23 21:00 06/16/23 20:53 Solution IVPB 400 mls/hr Q12HR [facility] Administration Magnesium Sulfate/Dextrose 1 100 mls @ 100 mls/hr 06/17/23 07:30 gm/ IV Solution IVPB 06/17/23 11:29 Q1H [facility] Protocol Dexmedetomidine HCl 400 mcg/ 100 mls @ 4.54 mls/hr 06/17/23 09:00 06/17/23 09:09 IV Solution IV 0.2 mcg/kg/hr .Q22H2M [facility] 4.54 mls/hr Administration Protocol 0.2 MCG/KG/HR Insulin Aspart 0 unit 06/16/23 12:30 06/17/23 07:18 Insulin Aspart (Novolog) 100 Unit/Ml Vial SQ Not Given ACHS [facility] Protocol Insulin Detemir 8 unit 06/16/23 21:00 06/17/23 07:18 Insulin Detemir (Levemir) 100 Unit/Ml Syr SQ Not Given BID@0730,2100 [facility] Magnesium Oxide 400 mg 06/16/23 21:00 06/17/23 08:23 Magnesium Oxide 400 Mg Tab PO Not Given BID [facility] Methylprednisolone Sodium Succinate 60 mg 06/16/23 06:00 06/17/23 06:56 Methylprednisolone Sod Succi 125 Mg/2 Ml Vial IV 60 mg Q6HR [facility] Administration Metoprolol Tartrate 12.5 mg 06/16/23 21:00 06/17/23 08:23 Metoprolol Tartrate 12.5 Mg Tab PO Not Given BID [facility] Miscellaneous Information 1 each 06/16/23 12:21 Potassium Replacement Protocol 1 Each Mis MISCELLANE DAILY PRN Per Protocol Protocol Miscellaneous Information 1 each 06/17/23 07:15 Potassium Replacement Protocol 1 Each [facility] MISCELLANE DAILY PRN Per Protocol Protocol Miscellaneous Information 1 each 06/17/23 07:17 Magnesium Replacement Protocol 1 Each [facility] MISCELLANE DAILY PRN Per Protocol Protocol Naloxone HCl 0.2 mg 06/16/23 05:39 Naloxone 0.4 Mg/Ml 1 Ml Vial IVP Q2M PRN Opioid Reversal Nicotine 1 patch 06/17/23 09:00 Nicotine 21mg/24hr Patch TRANSDERM DAILY [facility] Pantoprazole Sodium 40 mg 06/17/23 09:00 Pantoprazole 40 Mg/10 Ml Vial IVP DAILY [facility] Potassium Chloride 10 meq 06/17/23 09:00 Potassium Chloride Er 10 Meq Tab.Er.Prt PO DAILY [facility] Intake and Output 06/16/23 06/17/23 06/17/23 22:59 06:59 14:59 Intake Total 600 100 Output Total 1465 970 75 Balance -865 -870 -75 Intake: Intake, IV Titration 600 100 Amount Potassium Chloride 10 meq 400 100 In Water For Injection 1 100ml.bag @ 100 mls/hr IVPB Q1HR [facility] Rx#: [id number] Potassium Chloride 10 meq 100 In Water For Injection 1 100ml.bag @ 100 mls/hr IVPB Q1HR [facility] Rx#: [id number] levETIRAcetam IV 1,500 mg 100 In Saline 1 100ml.bag @ 400 mls/hr IVPB Q12HR [facility] Rx#:[id number] Output: Urine 1465 970 75 Other: Voiding Method Indwelling Catheter Indwelling Catheter Weight 90.8 kg 06/17/23 04:31 06/17/23 04:31
--- NOTE | 2023-06-17 10:00 | P.PN ---
Subjective Progress Note Date: 06/17/23 Principal diagnosis: Acute on chronic hypoxic and hypercapnic respiratory failure This is a 62-year-old female, familiar to our service, patient was seen actually a month ago during her last admission at [facility]. Patient is known to have history of chronic diastolic congestive heart failure, COPD, glaucoma, chronic low back pain, hypertension, degenerative joint disease, chronic hypoxic respiratory failure on home oxygen, chronic and ongoing tobacco dependence, type 2 diabetes, dyslipidemia, patient had multiple admissions in the past with altered mental status and hypoxemia as well as hypercapnia. Could not get much history from the patient. Apparently the patient was brought into the ER with complaints of cough and shortness of breath. Apparently upon arrival the patient was extremely agitated, and that 3 people to hold him down, and the patient was given 1 dose of Ativan, and when I evaluated the patient she was clearly obtunded, could not even arouse the patient with deep painful stimuli, hence I recommended placing the patient on BiPAP, ABG prior to placement on BiPAP showed a significant hypercapnia, pCO2 of 95 pH of 7.28 and pO2 was 76. This was on 50% FiO2. I recommended that the patient goes on BiPAP, and instead of admitting the patient to the medical floor, and recommended admitting the patient to the ICU setting. Chest x-ray showed evidence of pulmonary edema labs showed significantly elevated BNP level, relatively normal CBC with a hemoglobin of 10.8, WBC count 11.2, basic metabolic profile was relatively normal. Bicarb was noted to be 36 indicative of chronic hypercapnia and metabolic compensation. BNP level was 10,900, influenza RSV and COVID-19 screening were made Reevaluated today on 06/17/2023, patient remains in the ICU, on BiPAP 10/12/40%, patient is lethargic nonetheless she is arousable with deep painful stimuli. She is in normal sinus rhythm, blood pressure 109/64, does not seem to be in any distress. WBC count is 8.9 hemoglobin 10.8 electrolytes are relatively normal except bicarb is 41 renal profile is normal. CT brain is unremarkable from admission. Chest x-ray showed cardiomegaly and mild pulmonary vascular congestion, patient had elevated BNP level of 10,900. She also had elevated pro calcitonin of 0.201 admission. Still receiving diuretics and antibiotics since admission she is on Rocephin and Zithromax Objective - Vital Signs Vital signs: Vital Signs Temp 98.1 F 06/17/23 05:00 Pulse 92 06/17/23 08:04 Resp 17 06/17/23 07:00 BP 109/64 06/17/23 07:00 Pulse Ox 91 L 06/17/23 07:00 FiO2 40 06/17/23 07:38 Intake & Output 06/16/23 06/17/23 06/17/23 18:59 06:59 18:59 Intake Total 500 400 Output Total 2495 1540 75 Balance -1994 Weight 90.8 kg Intake: Intake, IV Titration 500 400 Amount Potassium Chloride 10 meq 500 200 In Water For Injection 1 100ml.bag @ 100 mls/hr IVPB Q1HR [facility] Rx#: [id number] Potassium Chloride 10 meq 100 In Water For Injection 1 100ml.bag @ 100 mls/hr IVPB Q1HR [facility] Rx#: [id number] levETIRAcetam IV 1,500 mg 100 In Saline 1 100ml.bag @ 400 mls/hr IVPB Q12HR [facility] Rx#:[id number] Output: Urine 2495 1540 75 Other: Voiding Method Indwelling Catheter Indwelling Catheter - Exam Physical Exam: Revealed a 62-year-old female in no distress, on BiPAP, arousable with deep painful stimuli. Head: Atraumatic, normocephalic HEENT:[Neck is supple.] [No neck masses.] [No thyromegaly.] [No JVD.] Chest: Symmetrical chest expansion diminished breath sound bilaterally and crackles noted. Cardiac Exam: Distant S1 and S2, no S3 gallop, 2/6 systolic murmur thought the precordium. Abdomen: [Obese, Soft, nontender, no megaly, no rebound, no guarding, normal bowel sounds.] Extremities: Trace of edema, no clubbing, no cyanosis..] Neurological Exam: Could not fully assess, patient is on BiPAP, arousable with deep painful stimuli only. Psychiatric: Could not assess. - Labs CBC & Chem 7: 06/17/23 04:31 06/17/23 04:31 Labs: Abnormal Lab Results - Last 24 Hours (Table) 06/16/23 06/16/23 06/16/23 Range/Units 03:16 10:00 11:15 Hgb (11.4-16.0) gm/dL MCV (80.0-100.0) fL MCH (25.0-35.0) pg MCHC (31.0-37.0) g/dL RDW (11.5-15.5) % ABG pH 7.28 L (7.35-7.45) ABG pCO2 95 H* (35-45) mmHg ABG pO2 76 L (83-108) mmHg ABG HCO3 45 H* (21-25) mmol/L ABG Total CO2 48 H (19-24) mmol/L ABG O2 Saturation 91.4 L (94-97) % Potassium (3.5-5.1) mmol/L Chloride (98-107) mmol/L Carbon Dioxide (22-30) mmol/L BUN (7-17) mg/dL Glucose (74-99) mg/dL POC Glucose (mg/dL) (70-110) mg/dL Hemoglobin A1c (<=6.0) % Calcium (8.4-10.2) mg/dL Magnesium (1.6-2.3) mg/dL AST (14-36) U/L Total Protein (6.3-8.2) g/dL Albumin (3.5-5.0) g/dL Procalcitonin 0.20 H (0.02-0.09) ng/mL Urine Glucose (UA) 2+ H (Negative) 06/16/23 06/16/23 06/16/23 Range/Units 14:43 18:30 20:15 Hgb (11.4-16.0) gm/dL MCV (80.0-100.0) fL MCH (25.0-35.0) pg MCHC (31.0-37.0) g/dL RDW (11.5-15.5) % ABG pH (7.35-7.45) ABG pCO2 81 H* (35-45) mmHg ABG pO2 75 L (83-108) mmHg ABG HCO3 46 H* (21-25) mmol/L ABG Total CO2 48 H (19-24) mmol/L ABG O2 Saturation 92.9 L (94-97) % Potassium 3.3 L (3.5-5.1) mmol/L Chloride (98-107) mmol/L Carbon Dioxide (22-30) mmol/L BUN (7-17) mg/dL Glucose (74-99) mg/dL POC Glucose (mg/dL) 114 H (70-110) mg/dL Hemoglobin A1c (<=6.0) % Calcium (8.4-10.2) mg/dL Magnesium (1.6-2.3) mg/dL AST (14-36) U/L Total Protein (6.3-8.2) g/dL Albumin (3.5-5.0) g/dL Procalcitonin (0.02-0.09) ng/mL Urine Glucose (UA) (Negative) 06/17/23 06/17/23 06/17/23 Range/Units 04:31 04:31 04:31 Hgb 10.8 L (11.4-16.0) gm/dL MCV 76.6 L (80.0-100.0) fL MCH 22.5 L (25.0-35.0) pg MCHC 29.3 L (31.0-37.0) g/dL RDW 20.8 H (11.5-15.5) % ABG pH (7.35-7.45) ABG pCO2 (35-45) mmHg ABG pO2 (83-108) mmHg ABG HCO3 (21-25) mmol/L ABG Total CO2 (19-24) mmol/L ABG O2 Saturation (94-97) % Potassium (3.5-5.1) mmol/L Chloride 89 L (98-107) mmol/L Carbon Dioxide 41 H* (22-30) mmol/L BUN 18 H (7-17) mg/dL Glucose 122 H (74-99) mg/dL POC Glucose (mg/dL) (70-110) mg/dL Hemoglobin A1c 7.6 H (<=6.0) % Calcium 7.9 L (8.4-10.2) mg/dL Magnesium 1.3 L (1.6-2.3) mg/dL AST 40 H (14-36) U/L Total Protein 5.8 L (6.3-8.2) g/dL Albumin 3.3 L (3.5-5.0) g/dL Procalcitonin (0.02-0.09) ng/mL Urine Glucose (UA) (Negative) 06/17/23 Range/Units 06:26 Hgb (11.4-16.0) gm/dL MCV (80.0-100.0) fL MCH (25.0-35.0) pg MCHC (31.0-37.0) g/dL RDW (11.5-15.5) % ABG pH (7.35-7.45) ABG pCO2 (35-45) mmHg ABG pO2 (83-108) mmHg ABG HCO3 (21-25) mmol/L ABG Total CO2 (19-24) mmol/L ABG O2 Saturation (94-97) % Potassium (3.5-5.1) mmol/L Chloride (98-107) mmol/L Carbon Dioxide (22-30) mmol/L BUN (7-17) mg/dL Glucose (74-99) mg/dL POC Glucose (mg/dL) 125 H (70-110) mg/dL Hemoglobin A1c (<=6.0) % Calcium (8.4-10.2) mg/dL Magnesium (1.6-2.3) mg/dL AST (14-36) U/L Total Protein (6.3-8.2) g/dL Albumin (3.5-5.0) g/dL Procalcitonin (0.02-0.09) ng/mL Urine Glucose (UA) (Negative) Assessment and Plan Assessment: Impression: Acute on chronic hypoxic and hypercapnic respiratory failure Acute on chronic diastolic congestive heart failure Cannot rule out underlying pneumonia especially with elevated pro calcitonin level and she does have diastolic congestive heart failure Severe underlying COPD with chronic hypercapnia, presently seems to be in active Acute metabolic encephalopathy secondary mostly to hypercapnia Chronic ongoing tobacco dependence Type 2 diabetes without complications Dyslipidemia Benign essential hypertension Degenerative joint disease, history of gout Recommendation: Continue BiPAP Continue methylprednisolone Continue updrafts/DuoNeb and Pulmicort. Continue antibiotics and diuretics Continue to monitor in the ICU we will continue to follow continue GI and DVT prophylaxis Time with Patient: Less than 30
[2023-06-17] MEDS: levETIRAcetam IV 1,500 MG in SALINE 1 100ML.BAG IVPB SCH ×2 (10:02→21:29)
[2023-06-17] MEDS: POTASSIUM CHLORIDE ER 10 MEQ TAB.ER.PRT PO SCH (10:02)
[2023-06-17] MEDS: MAGNESIUM SULFATE-D5W PMX 1 GM in DEXTROSE/WATER 1 100ML.BAG IVPB SCH ×4 (10:06→14:36)
[2023-06-17] MEDS: HEPARIN SODIUM,PORCINE 5,000 UNIT/ML 1 ML VIAL SQ SCH ×2 (10:07→21:29)
[2023-06-17] MEDS: FUROSEMIDE 10 MG/ML 4 ML VIAL IV SCH ×2 (10:07→16:19)
[2023-06-17] MEDS: PANTOPRAZOLE 40 MG/10 ML VIAL IVP SCH (10:07)
[2023-06-17] MEDS: NICOTINE 21MG/24HR PATCH TRANSDERM SCH (10:07)
[2023-06-17] MEDS ORDERED: HALOPERIDOL LACTATE 5 MG/ML 1 ML VIAL IVP STA (11:56)
[2023-06-17] MEDS ORDERED: HALOPERIDOL LACTATE 5 MG/ML 1 ML VIAL IVP PRN (12:18)
[2023-06-17 12:23] LABS: Glucose,Whole Blood 160 mg/dL (70-110)
--- NOTE | 2023-06-17 14:56 | PN ---
PROGRESS NOTE DATE OF SERVICE: 06/17/2023 SUBJECTIVE: This 62-year-old woman was admitted with shortness with COPD acute exacerbation, acute hypoxic respiratory failure, also had significant hypercarbia. The patient continues to be confused. The patient needed IV Haldol for sedation at this time. The patient is on BiPAP. Dr. Hanley is following the patient, patient is closely monitored in ICU. The patient is unable to provide a coherent history. The patient is sedated and extremely confused and combative also at this time. PAST MEDICAL HISTORY: Could not be taken. CURRENT MEDICATIONS: Reviewed. PHYSICAL EXAMINATION: VITAL SIGNS: Pulse is 95, blood pressure 109/65, respirations 17, pulse ox 91% on BiPAP. HEENT: Conjunctivae normal. CARDIOVASCULAR: S1, S2. RESPIRATIONS: Few scattered rhonchi. ABDOMEN: Soft, obese. LEGS: No edema, no calf. LABORATORY DATA: Reviewed. ASSESSMENT: 1. COPD and CHF acute exacerbation with acute hypoxic respiratory failure, hypercarbic respiratory failure. 2. Acute metabolic encephalopathy. 3. Change in mental status. 4. Increased WBC. 5. Diabetes mellitus, type 2. 6. GERD. 7. Hypertension. 8. Hyperlipidemia. 9. Multiple medical issues. 10.Acute on chronic diastolic dysfunction. RECOMMENDATIONS: Recommended to continue symptomatic treatment, otherwise at this time I would recommend continue the bronchodilators. Continue with empiric antibiotics, IV steroids, p.r.n. Haldol . Cardiology pulmonology following the patient. The patient is on empiric IV Lasix. A 2D echo done last month showed preserved LV size and systolic function. We will repeat a chest x-ray in the morning and continue to monitor. Further recommendations to follow. MMODL / IJN: [id number] /
[2023-06-17 16:09] LABS: Glucose,Whole Blood 189 mg/dL (70-110)
[2023-06-17] MEDS: HALOPERIDOL LACTATE 5 MG/ML 1 ML VIAL IVP PRN ×2 (17:14→21:28)
[2023-06-17 20:07] LABS: Glucose,Whole Blood 168 mg/dL (70-110)
[2023-06-17] MEDS: ATORVASTATIN 80 MG TAB PO SCH (21:10)
[2023-06-17] MEDS: MORPHINE SULFATE 2 MG/ML SYRINGE IVP PRN (23:57)
[2023-06-18] MEDS: methylPREDNISolone SOD SUCCI 125 MG/2 ML VIAL IV SCH ×4 (00:02→17:56)
[2023-06-18] MEDS: FUROSEMIDE 10 MG/ML 4 ML VIAL IV SCH ×3 (00:03→15:47)
[2023-06-18] MEDS: DEXMEDETOMIDINE/0.9% NACL(PMX) 400 MCG in EMPTY BAG 1 BAG IV SCH ×2 (00:08→09:23)
[2023-06-18] MEDS: MORPHINE SULFATE 2 MG/ML SYRINGE IVP PRN ×4 (03:45→17:57)
[2023-06-18 04:42] LABS: Anisocytosis Moderate; Basophils % (A) 0 %; Eosinophils % (A) 0 %; HCT 36.5 % (34.0-46.0); HGB 10.7 gm/dL (11.4-16.0); Hypochromasia Marked; Lymphocytes # (A) 0.7 k/uL (1.0-4.8); Lymphocytes % (A) 13 %; MCH 22.4 pg (25.0-35.0); MCHC 29.4 g/dL (31.0-37.0); MCV 76.3 fL (80.0-100.0); Mean Platelet Volume 8.2; Microcytosis Moderate; Monocytes # (A) 0.3 k/uL (0-1.0); Monocytes % (A) 5 %; Neutrophils # (A) 4.3 k/uL (1.3-7.7); Neutrophils % (A) 80 %; Platelet Count 271 k/uL (150-450); Poikilocytosis Slight; RBC 4.79 m/uL (3.80-5.40); RDW 20.5 % (11.5-15.5); WBC 5.4 k/uL (3.8-10.6)
[2023-06-18 04:49] LABS: African American GFR (CKD) >90 (>60 ml/min/1.73 sqM); Anion Gap 10 mmol/L; Blood Urea Nitrogen 27 mg/dL (7-17); Calcium 8.3 mg/dL (8.4-10.2); Carbon Dioxide 40 mmol/L (22-30); Chloride 89 mmol/L (98-107); Glucose 150 mg/dL (74-99); Magnesium 1.9 mg/dL (1.6-2.3); Non-African American GFR(CKD) >90 (>60 ml/min/1.73 sqM); Sodium 139 mmol/L (137-145)
[2023-06-18 06:51] LABS: Glucose,Whole Blood 153 mg/dL (70-110)
--- NOTE | 2023-06-18 06:59 | XR ---
EXAMINATION TYPE: XR chest 1V portable DATE OF EXAM: 06/18/2023 HISTORY: Shortness of breath. COMPARISON: 06/16/2023 TECHNIQUE: Single view of the chest is submitted. FINDINGS: Demonstrated are scattered senescent parenchymal change. Improvement in pulmonary venous congestion. Persistent right basilar infiltrate, atelectasis and/or p leural effusion. Left Basilar opacity noted as well. The heart is stable. Hilar and mediastinal structures are within normal limits. Degenerative changes are seen of the dorsal spine. IMPRESSION: 1. Improvement in pulmonary venous congestion. Persistent right basilar infiltrate, atelectasis and/ or pleural effusion. Left Basilar opacity noted as well.
[2023-06-18] MEDS: INSULIN DETEMIR (LEVEMIR) 100 UNIT/ML SYR SQ SCH ×2 (07:00→20:20)
[2023-06-18] MEDS: INSULIN ASPART (NovoLOG) 100 UNIT/ML VIAL SQ SCH ×4 (07:01→20:28)
[2023-06-18] MEDS: IPRATROPIUM-ALBUTEROL 3 ML NEB INHALATION SCH ×4 (07:35→19:35)
[2023-06-18] MEDS: BUDESONIDE 1 MG/2 ML NEBU INHALATION SCH ×2 (07:35→19:35)
[2023-06-18] MEDS: FORMOTEROL FUMARATE 20 MCG/2 ML NEBU INHALATION SCH ×2 (07:35→19:34)
[2023-06-18] MEDS ORDERED: MAGNESIUM SULFATE-D5W PMX 1 GM in DEXTROSE/WATER 1 100ML.BAG IVPB ONE (08:00)
[2023-06-18] MEDS: levETIRAcetam IV 1,500 MG in SALINE 1 100ML.BAG IVPB SCH ×2 (09:16→20:28)
[2023-06-18] MEDS: NICOTINE 21MG/24HR PATCH TRANSDERM SCH (09:29)
[2023-06-18] MEDS: MAGNESIUM OXIDE 400 MG TAB PO SCH ×2 (09:30→20:28)
[2023-06-18] MEDS: allopurinoL 100 MG TAB PO SCH (09:30)
[2023-06-18] MEDS: PANTOPRAZOLE 40 MG/10 ML VIAL IVP SCH (09:30)
[2023-06-18] MEDS: FENOFIBRATE 160 MG TAB PO SCH (09:30)
[2023-06-18] MEDS: HEPARIN SODIUM,PORCINE 5,000 UNIT/ML 1 ML VIAL SQ SCH ×2 (09:30→20:28)
[2023-06-18] MEDS: METOPROLOL TARTRATE 12.5 MG TAB PO SCH ×2 (09:30→20:28)
[2023-06-18] MEDS: POTASSIUM CHLORIDE ER 10 MEQ TAB.ER.PRT PO SCH (09:30)
--- NOTE | 2023-06-18 09:35 | P.PN ---
Subjective Progress Note Date: 06/18/23 Principal diagnosis: Acute on chronic hypoxic and hypercapnic respiratory failure This is a 62-year-old female, familiar to our service, patient was seen actually a month ago during her last admission at [facility]. Patient is known to have history of chronic diastolic congestive heart failure, COPD, glaucoma, chronic low back pain, hypertension, degenerative joint disease, chronic hypoxic respiratory failure on home oxygen, chronic and ongoing tobacco dependence, type 2 diabetes, dyslipidemia, patient had multiple admissions in the past with altered mental status and hypoxemia as well as hypercapnia. Could not get much history from the patient. Apparently the patient was brought into the ER with complaints of cough and shortness of breath. Apparently upon arrival the patient was extremely agitated, and that 3 people to hold him down, and the patient was given 1 dose of Ativan, and when I evaluated the patient she was clearly obtunded, could not even arouse the patient with deep painful stimuli, hence I recommended placing the patient on BiPAP, ABG prior to placement on BiPAP showed a significant hypercapnia, pCO2 of 95 pH of 7.28 and pO2 was 76. This was on 50% FiO2. I recommended that the patient goes on BiPAP, and instead of admitting the patient to the medical floor, and recommended admitting the patient to the ICU setting. Chest x-ray showed evidence of pulmonary edema labs showed significantly elevated BNP level, relatively normal CBC with a hemoglobin of 10.8, WBC count 11.2, basic metabolic profile was relatively normal. Bicarb was noted to be 36 indicative of chronic hypercapnia and metabolic compensation. BNP level was 10,900, influenza RSV and COVID-19 screening were made Reevaluated today on 06/17/2023, patient remains in the ICU, on BiPAP 10/12/40%, patient is lethargic nonetheless she is arousable with deep painful stimuli. She is in normal sinus rhythm, blood pressure 109/64, does not seem to be in any distress. WBC count is 8.9 hemoglobin 10.8 electrolytes are relatively normal except bicarb is 41 renal profile is normal. CT brain is unremarkable from admission. Chest x-ray showed cardiomegaly and mild pulmonary vascular congestion, patient had elevated BNP level of 10,900. She also had elevated pro calcitonin of 0.201 admission. Still receiving diuretics and antibiotics since admission she is on Rocephin and Zithromax Reevaluated today on , patient remains in the ICU, on BiPAP, 10/11/40%. Patient is also on Precedex at 0.2 mcg/kg/hour, she received Haldol yesterday because she was getting quite agitated in spite of Precedex. This morning I was able to awaken the patient, seems to be pleasant and appropriate, hence we'll try the patient on a nasal cannula and set of BiPAP. WBC count is 5.4 hemoglobin 10.7 electrodes are normal renal profile is normal. Patient is relatively asymptomatic but according to the nurses she has intermittent episodes of confusion and agitation nonetheless I plan to keep her on Precedex today, and I plan to keep her in the ICU today. Objective - Vital Signs Vital signs: Vital Signs Temp 97.8 F 06/18/23 04:00 Pulse 87 06/18/23 08:18 Resp 10 L 06/18/23 07:00 BP 109/57 06/18/23 07:00 Pulse Ox 88 L 06/18/23 08:20 FiO2 40 06/18/23 07:35 Intake & Output 06/17/23 06/18/23 06/18/23 18:59 06:59 18:59 Intake Total 1101.999 195.460 17.669 Output Total 1665 1150 80 Balance -563.001 -954.540 -62.331 Weight 93.9 kg Intake: IV 100 levETIRAcetam IV 1,500 mg 100 In Saline 1 100ml.bag @ 400 mls/hr IVPB Q12HR [facility] Rx#:[id number] Intake, IV Titration 1101.999 95.460 17.669 Amount Dexmedetomidine/0.9% NaCl 101.999 95.460 17.669 (Pmx) 400 mcg In Empty Bag 1 bag @ 0.2 MCG/KG/HR 4.54 mls/hr IV .Q22H2M [facility] Rx#:[id number] Magnesium Sulfate-D5w Pmx 400 1 gm In Dextrose/Water 1 100ml.bag @ 100 mls/hr IVPB Q1H [facility] Rx#: [id number] Potassium Chloride 10 meq 200 In Water For Injection 1 100ml.bag @ 100 mls/hr IVPB Q1H [facility] Rx#: [id number] Potassium Chloride 10 meq 200 In Water For Injection 1 100ml.bag @ 100 mls/hr IVPB Q1H [facility] Rx#: [id number] cefTRIAXone 2 gm In 100 Sodium Chloride 0.9% 50 ml @ 100 mls/hr IVPB Q24HR [facility] Rx#:[id number] levETIRAcetam IV 1,500 mg 100 In Saline 1 100ml.bag @ 400 mls/hr IVPB Q12HR [facility] Rx#:[id number] Output: Urine 1665 1150 80 Other: Voiding Method Indwelling Catheter Indwelling Catheter - Exam Physical Exam: Revealed a 62-year-old female in no distress, on BiPAP, Head: Atraumatic, normocephalic HEENT:[Neck is supple.] [No neck masses.] [No thyromegaly.] [No JVD.] Chest: Symmetrical chest expansion diminished breath sound bilaterally and crackles noted. Cardiac Exam: Distant S1 and S2, no S3 gallop, 2/6 systolic murmur thought the precordium. Abdomen: [Obese, Soft, nontender, no megaly, no rebound, no guarding, normal bowel sounds.] Extremities: Trace of edema, no clubbing, no cyanosis..] Neurological Exam: Awake, pleasant, no gross focal neurologic deficit Psychiatric: Normal mood affect and normal mental status examination - Labs CBC & Chem 7: 06/18/23 03:48 06/18/23 03:48 Labs: Abnormal Lab Results - Last 24 Hours (Table) 06/17/23 06/17/23 06/17/23 Range/Units 12:19 16:07 20:05 Hgb (11.4-16.0) gm/dL MCV (80.0-100.0) fL MCH (25.0-35.0) pg MCHC (31.0-37.0) g/dL RDW (11.5-15.5) % Lymphocytes # (1.0-4.8) k/uL Chloride (98-107) mmol/L Carbon Dioxide (22-30) mmol/L BUN (7-17) mg/dL Glucose (74-99) mg/dL POC Glucose (mg/dL) 160 H 189 H 168 H (70-110) mg/dL Calcium (8.4-10.2) mg/dL 06/18/23 06/18/23 06/18/23 Range/Units 03:48 03:48 06:49 Hgb 10.7 L (11.4-16.0) gm/dL MCV 76.3 L (80.0-100.0) fL MCH 22.4 L (25.0-35.0) pg MCHC 29.4 L (31.0-37.0) g/dL RDW 20.5 H (11.5-15.5) % Lymphocytes # 0.7 L (1.0-4.8) k/uL Chloride 89 L (98-107) mmol/L Carbon Dioxide 40 H (22-30) mmol/L BUN 27 H (7-17) mg/dL Glucose 150 H (74-99) mg/dL POC Glucose (mg/dL) 153 H (70-110) mg/dL Calcium 8.3 L (8.4-10.2) mg/dL Microbiology - Last 24 Hours (Table) 06/16/23 05:54 Blood Culture - Preliminary Blood Assessment and Plan Assessment: Impression: Acute on chronic hypoxic and hypercapnic respiratory failure Acute on chronic diastolic congestive heart failure Cannot rule out underlying pneumonia especially with elevated pro calcitonin level and she does have diastolic congestive heart failure Severe underlying COPD with chronic hypercapnia Acute metabolic encephalopathy secondary mostly to hypercapnia Chronic ongoing tobacco dependence Type 2 diabetes without complications Dyslipidemia Benign essential hypertension Degenerative joint disease, history of gout Recommendation: Continue BiPAP, may consider trials of nasal cannula Continue methylprednisolone Continue Haldol and Precedex to control her agitation. Continue updrafts/DuoNeb and Pulmicort. Continue antibiotics and diuretics Continue to monitor in the ICU we will continue to follow continue GI and DVT prophylaxis Time with Patient: Less than 30
[2023-06-18 11:10] LABS: Glucose,Whole Blood 129 mg/dL (70-110)
[2023-06-18] MEDS: HALOPERIDOL LACTATE 5 MG/ML 1 ML VIAL IVP PRN ×3 (11:57→20:27)
--- NOTE | 2023-06-18 12:20 | P.PN ---
Subjective Progress Note Date: 06/18/23 The patient is a 62-year-old female who is currently admitted to the hospital with shortness of breath and acute mental status changes. She was found to be in hypoxic respiratory failure and was started on BiPAP. She has been agitated and combative against her BiPAP and is therefore sedated on Precedex. GENERAL: Well-appearing, well-nourished and in no acute distress. Currently on BiPAP NECK: Supple without JVD or thyromegaly. LUNGS: Breath sounds diminished to auscultation bilaterally. Respiration equal and unlabored. No wheezes. Fine crackles noted in the bases HEART: Regular rate and rhythm without murmurs, rubs or gallops. S1 and S2 heard. EXTREMITIES: Normal range of motion, no edema. No clubbing or cyanosis. Peripheral pulses intact and strong. TELEMETRY: Sinus rhythm overnight IMPRESSION: Acute hypoxic and hypercapnic respiratory failure Acute on chronic diastolic congestive heart failure Severe COPD with chronic hypercapnia Acute metabolic encephalopathy Current smoker Diabetes mellitus Dyslipidemia Hypertension PLAN: Start low-dose Aldactone Discontinue potassium Continue aggressive pulmonary hygiene Further recommendations. Based on clinical course I am dictating on behalf of Dr Louis Miller's history/physical and assessment/plan. Objective - Vital Signs Vital signs: Vital Signs Temp 97.8 F 06/18/23 04:00 Pulse 93 06/18/23 11:46 Resp 10 L 06/18/23 07:00 BP 109/57 06/18/23 07:00 Pulse Ox 88 L 06/18/23 08:20 FiO2 40 06/18/23 11:33 Intake & Output 06/17/23 06/18/23 06/18/23 18:59 06:59 18:59 Intake Total 1101.999 195.460 267.669 Output Total 1665 1150 475 Balance -563.001 -954.540 -207.331 Weight 93.9 kg Intake: IV 100 250 Magnesium Sulfate-D5w Pmx 100 1 gm In Dextrose/Water 1 100ml.bag @ 100 mls/hr IVPB ONCE ONE Rx#: [id number] cefTRIAXone 2 gm In 50 Sodium Chloride 0.9% 50 ml @ 100 mls/hr IVPB Q24HR [facility] Rx#:[id number] levETIRAcetam IV 1,500 mg 100 100 In Saline 1 100ml.bag @ 400 mls/hr IVPB Q12HR [facility] Rx#:[id number] Intake, IV Titration 1101.999 95.460 17.669 Amount Dexmedetomidine/0.9% NaCl 101.999 95.460 17.669 (Pmx) 400 mcg In Empty Bag 1 bag @ 0.2 MCG/KG/HR 4.54 mls/hr IV .Q22H2M [facility] Rx#:[id number] Magnesium Sulfate-D5w Pmx 400 1 gm In Dextrose/Water 1 100ml.bag @ 100 mls/hr IVPB Q1H [facility] Rx#: [id number] Potassium Chloride 10 meq 200 In Water For Injection 1 100ml.bag @ 100 mls/hr IVPB Q1H [facility] Rx#: [id number] Potassium Chloride 10 meq 200 In Water For Injection 1 100ml.bag @ 100 mls/hr IVPB Q1H [facility] Rx#: [id number] cefTRIAXone 2 gm In 100 Sodium Chloride 0.9% 50 ml @ 100 mls/hr IVPB Q24HR [facility] Rx#:[id number] levETIRAcetam IV 1,500 mg 100 In Saline 1 100ml.bag @ 400 mls/hr IVPB Q12HR [facility] Rx#:[id number] Output: Urine 1665 1150 475 Other: Voiding Method Indwelling Catheter Indwelling Catheter - Labs CBC & Chem 7: 06/18/23 03:48 06/18/23 03:48 Labs: Abnormal Lab Results - Last 24 Hours (Table) 06/17/23 06/17/23 06/17/23 Range/Units 12:19 16:07 20:05 Hgb (11.4-16.0) gm/dL MCV (80.0-100.0) fL MCH (25.0-35.0) pg MCHC (31.0-37.0) g/dL RDW (11.5-15.5) % Lymphocytes # (1.0-4.8) k/uL Chloride (98-107) mmol/L Carbon Dioxide (22-30) mmol/L BUN (7-17) mg/dL Glucose (74-99) mg/dL POC Glucose (mg/dL) 160 H 189 H 168 H (70-110) mg/dL Calcium (8.4-10.2) mg/dL 06/18/23 06/18/2323 Range/Units 03:48 03:48 06:49 Hgb 10.7 L (11.4-16.0) gm/dL MCV 76.3 L (80.0-100.0) fL MCH 22.4 L (25.0-35.0) pg MCHC 29.4 L (31.0-37.0) g/dL RDW 20.5 H (11.5-15.5) % Lymphocytes # 0.7 L (1.0-4.8) k/uL Chloride 89 L (98-107) mmol/L Carbon Dioxide 40 H (22-30) mmol/L BUN 27 H (7-17) mg/dL Glucose 150 H (74-99) mg/dL POC Glucose (mg/dL) 153 H (70-110) mg/dL Calcium 8.3 L (8.4-10.2) mg/dL 06/18/23 Range/Units 11:09 Hgb (11.4-16.0) gm/dL MCV (80.0-100.0) fL MCH (25.0-35.0) pg MCHC (31.0-37.0) g/dL RDW (11.5-15.5) % Lymphocytes # (1.0-4.8) k/uL Chloride (98-107) mmol/L Carbon Dioxide (22-30) mmol/L BUN (7-17) mg/dL Glucose (74-99) mg/dL POC Glucose (mg/dL) 129 H (70-110) mg/dL Calcium (8.4-10.2) mg/dL Microbiology - Last 24 Hours (Table) 06/16/23 05:54 Blood Culture - Preliminary Blood
[2023-06-18] MEDS: SPIRONOLACTONE 25 MG TAB PO SCH (15:49)
[2023-06-18 16:11] LABS: Glucose,Whole Blood 156 mg/dL (70-110)
[2023-06-18 20:07] LABS: Glucose,Whole Blood 184 mg/dL (70-110)
[2023-06-18] MEDS: ATORVASTATIN 80 MG TAB PO SCH (20:28)
--- NOTE | 2023-06-18 21:53 | PN ---
PROGRESS NOTE DATE OF SERVICE: 06/17/2023 SUBJECTIVE: This is a 62-year-old woman, who was admitted with COPD acute exacerbation, acute hypoxic hypercarbic respiratory failure, is on BiPAP, the sensorium has slightly improved. The patient has swinging and had abnormal behavior. The patient also has some pleural effusion or haziness in the right lower lobe. PAST MEDICAL HISTORY: Reviewed. REVIEW OF SYSTEMS: Could not be taken. CURRENT MEDICATIONS: Reviewed include Rocephin, dose and rest of medications noted. PHYSICAL EXAMINATION: VITAL SIGNS: Pulse is 93, blood pressure 140/97, respirations 20. HEENT: Conjunctivae normal. NECK: No JVD. CARDIOVASCULAR: S1, S2. RESPIRATIONS: Breath sounds diminished at the bases. Bilateral scattered rhonchi. ABDOMEN: Soft, obese. NERVOUS SYSTEM: Nonfocal. LABORATORY DATA: Reviewed. ASSESSMENT: 1. Chronic obstructive pulmonary disease and congestive heart failure acute exacerbation with acute hypoxic respiratory failure with hypercarbic respiratory failure. 2. Acute metabolic encephalopathy. 3. Change in mental status. 4. Increased WBC. 5. Diabetes mellitus, type 2. 6. Gastroesophageal reflux disease. 7. Hypertension. 8. Hyperlipidemia. 9. Multiple medical issues. 10.Acute on chronic diastolic dysfunction. RECOMMENDATIONS: Recommend to continue current medications. Continue symptomatic treatment. Otherwise, we will continue to monitor. Repeat labs. Empiric antibiotics. The cultures are negative so far. Guarded prognosis. Further recommendations to follow. NT proBNP is elevated and a 2D echo done recently showed preserved LV size and function. I would recommend to continue with Lasix and continue to monitor. Guarded prognosis. Further recommendations to follow. See orders for further details. MMODL / IJN: [id number] /
[2023-06-19] MEDS: FUROSEMIDE 10 MG/ML 4 ML VIAL IV SCH ×3 (00:14→15:56)
[2023-06-19] MEDS: methylPREDNISolone SOD SUCCI 125 MG/2 ML VIAL IV SCH ×4 (00:14→17:49)
[2023-06-19] MEDS: HALOPERIDOL LACTATE 5 MG/ML 1 ML VIAL IVP PRN ×2 (00:14→06:03)
[2023-06-19] MEDS: DEXMEDETOMIDINE/0.9% NACL(PMX) 400 MCG in EMPTY BAG 1 BAG IV SCH ×3 (01:10→22:11)
[2023-06-19] MEDS: MORPHINE SULFATE 2 MG/ML SYRINGE IVP PRN ×3 (01:21→20:31)
[2023-06-19 04:26] LABS: African American GFR (CKD) >90 (>60 ml/min/1.73 sqM); Blood Urea Nitrogen 31 mg/dL (7-17); Calcium 8.4 mg/dL (8.4-10.2); Chloride 89 mmol/L (98-107); Glucose 165 mg/dL (74-99); Magnesium 1.7 mg/dL (1.6-2.3); Non-African American GFR(CKD) >90 (>60 ml/min/1.73 sqM); Potassium 3.9 mmol/L (3.5-5.1); Sodium 141 mmol/L (137-145)
[2023-06-19 04:32] LABS: Anion Gap 16 mmol/L; Carbon Dioxide 36 mmol/L (22-30)
[2023-06-19 04:36] LABS: Anisocytosis Moderate; Basophils % (A) 0 %; Eosinophils % (A) 0 %; HCT 35.9 % (34.0-46.0); HGB 10.7 gm/dL (11.4-16.0); Hypochromasia Marked; Lymphocytes # (A) 0.6 k/uL (1.0-4.8); Lymphocytes % (A) 7 %; MCH 22.6 pg (25.0-35.0); MCHC 29.8 g/dL (31.0-37.0); MCV 75.8 fL (80.0-100.0); Mean Platelet Volume 9.2; Microcytosis Moderate; Monocytes # (A) 0.3 k/uL (0-1.0); Monocytes % (A) 4 %; Neutrophils # (A) 6.8 k/uL (1.3-7.7); Neutrophils % (A) 88 %; Platelet Count 288 k/uL (150-450); Poikilocytosis Moderate; RBC 4.74 m/uL (3.80-5.40); RDW 20.7 % (11.5-15.5); WBC 7.7 k/uL (3.8-10.6)
[2023-06-19] MEDS ORDERED: MAGNESIUM SULFATE-D5W PMX 1 GM in DEXTROSE/WATER 1 100ML.BAG IVPB ONE (04:54)
[2023-06-19 06:38] LABS: Glucose,Whole Blood 191 mg/dL (70-110)
[2023-06-19] MEDS: INSULIN ASPART (NovoLOG) 100 UNIT/ML VIAL SQ SCH ×4 (06:48→20:32)
[2023-06-19] MEDS: INSULIN DETEMIR (LEVEMIR) 100 UNIT/ML SYR SQ SCH ×2 (06:49→20:53)
--- NOTE | 2023-06-19 08:26 | XR ---
EXAMINATION TYPE: XR chest 1V portable DATE OF EXAM: 06/19/2023 HISTORY: Shortness of breath. COMPARISON: 06/18/2023 TECHNIQUE: Single view of the chest is submitted. FINDINGS: Demonstrated are scattered senescent parenchymal change. There is improved pulmonary venous congestion. Basilar atelectasis or infiltrates with small effusion s persist. The heart is stable. Hilar and mediastinal structures are within normal limits. Degenerative changes are seen of the dorsal spine. IMPRESSION: 1. There is improved pulmonary venous congestion. Basilar atelectasis or infiltrates with small effu sions persist.
[2023-06-19] MEDS: BUDESONIDE 1 MG/2 ML NEBU INHALATION SCH ×2 (09:24→20:34)
[2023-06-19] MEDS: IPRATROPIUM-ALBUTEROL 3 ML NEB INHALATION SCH ×4 (09:25→20:34)
[2023-06-19] MEDS: FORMOTEROL FUMARATE 20 MCG/2 ML NEBU INHALATION SCH ×2 (09:25→20:34)
[2023-06-19 09:36] LABS: ABG Base Excess 17.3 mmol/L; ABG Oxygen Saturation 95.3 % (94-97); ABG PCO2 68 mmHg (35-45); ABG PO2 82 mmHg (83-108); ABG TCO2 44 mmol/L (19-24); Allen Test Performed? Yes
[2023-06-19 09:39] LABS: ABG HCO3 42 mmol/L (21-25)
[2023-06-19] MEDS: PANTOPRAZOLE 40 MG/10 ML VIAL IVP SCH (10:03)
[2023-06-19] MEDS: NICOTINE 21MG/24HR PATCH TRANSDERM SCH (10:05)
[2023-06-19] MEDS: METOPROLOL TARTRATE 12.5 MG TAB PO SCH ×2 (10:06→20:33)
[2023-06-19] MEDS: MAGNESIUM OXIDE 400 MG TAB PO SCH ×2 (10:06→20:53)
[2023-06-19] MEDS: SPIRONOLACTONE 25 MG TAB PO SCH (10:06)
[2023-06-19] MEDS: allopurinoL 100 MG TAB PO SCH (10:06)
[2023-06-19] MEDS: HEPARIN SODIUM,PORCINE 5,000 UNIT/ML 1 ML VIAL SQ SCH ×2 (10:06→20:32)
[2023-06-19] MEDS: levETIRAcetam IV 1,500 MG in SALINE 1 100ML.BAG IVPB SCH ×2 (10:10→20:40)
[2023-06-19 11:25] LABS: Glucose,Whole Blood 161 mg/dL (70-110)
[2023-06-19] MEDS: FENOFIBRATE 160 MG TAB PO SCH (11:38)
--- NOTE | 2023-06-19 11:51 | P.PN ---
Subjective Progress Note Date: 06/19/23 Principal diagnosis: Acute on chronic hypoxic and hypercapnic respiratory failure This is a 62-year-old female, familiar to our service, patient was seen actually a month ago during her last admission at [facility]. Patient is known to have history of chronic diastolic congestive heart failure, COPD, glaucoma, chronic low back pain, hypertension, degenerative joint disease, chronic hypoxic respiratory failure on home oxygen, chronic and ongoing tobacco dependence, type 2 diabetes, dyslipidemia, patient had multiple admissions in the past with altered mental status and hypoxemia as well as hypercapnia. Could not get much history from the patient. Apparently the patient was brought into the ER with complaints of cough and shortness of breath. Apparently upon arrival the patient was extremely agitated, and that 3 people to hold him down, and the patient was given 1 dose of Ativan, and when I evaluated the patient she was clearly obtunded, could not even arouse the patient with deep painful stimuli, hence I recommended placing the patient on BiPAP, ABG prior to placement on BiPAP showed a significant hypercapnia, pCO2 of 95 pH of 7.28 and pO2 was 76. This was on 50% FiO2. I recommended that the patient goes on BiPAP, and instead of admitting the patient to the medical floor, and recommended admitting the patient to the ICU setting. Chest x-ray showed evidence of pulmonary edema labs showed significantly elevated BNP level, relatively normal CBC with a hemoglobin of 10.8, WBC count 11.2, basic metabolic profile was relatively normal. Bicarb was noted to be 36 indicative of chronic hypercapnia and metabolic compensation. BNP level was 10,900, influenza RSV and COVID-19 screening were made Reevaluated today on 06/17/2023, patient remains in the ICU, on BiPAP 10/12/40%, patient is lethargic nonetheless she is arousable with deep painful stimuli. She is in normal sinus rhythm, blood pressure 109/64, does not seem to be in any distress. WBC count is 8.9 hemoglobin 10.8 electrolytes are relatively normal except bicarb is 41 renal profile is normal. CT brain is unremarkable from admission. Chest x-ray showed cardiomegaly and mild pulmonary vascular congestion, patient had elevated BNP level of 10,900. She also had elevated pro calcitonin of 0.201 admission. Still receiving diuretics and antibiotics since admission she is on Rocephin and Zithromax Reevaluated today on , patient remains in the ICU, on BiPAP, 12/5/40%. Patient is also on Precedex at 0.2 mcg/kg/hour, she received Haldol yesterday because she was getting quite agitated in spite of Precedex. This morning I was able to awaken the patient, seems to be pleasant and appropriate, hence we'll try the patient on a nasal cannula and set of BiPAP. WBC count is 5.4 hemoglobin 10.7 electrodes are normal renal profile is normal. Patient is relatively asymptomatic but according to the nurses she has intermittent episodes of confusion and agitation nonetheless I plan to keep her on Precedex today, and I plan to keep her in the ICU today. Reevaluated today on 06/19/2023, patient remains in ICU, remains on 12/5/40%, ABG today showed a pO2 of 82 pCO2 67 pH of 7.40. Patient remains on Precedex at 0.5 mcg/kg/h remains calm, and hopefully we can eventually transitioned the patient to nasal cannula, we continue to try on a daily basis to see if she could tolerate coming off BiPAP. The ABG this morning seems to be reassuring is that of than expected. MHC count 7.7 hemoglobin is 10.7. Basic metabolic profile and renal profile is normal bicarb is 36. Chest x-ray is showing improvement with pulmonary venous congestion, minimal right basilar atelectasis and small effusion is possible. Objective - Vital Signs Vital signs: Vital Signs Temp 97.7 F 06/19/23 04:00 Pulse 84 06/19/23 11:00 Resp 14 06/19/23 11:00 BP 117/67 06/19/23 11:00 Pulse Ox 95 06/19/23 11:00 FiO2 40 06/19/23 11:00 Intake & Output 06/18/23 06/19/23 06/19/23 18:59 06:59 18:59 Intake Total 437.669 299.589 40 Output Total 1525 1430 210 Balance -1087.331 -1130.411 -170 Weight 93.7 kg Intake: IV 320 210 40 0.9 KVO 70 110 40 Magnesium Sulfate-D5w Pmx 100 1 gm In Dextrose/Water 1 100ml.bag @ 100 mls/hr IVPB ONCE ONE Rx#: [id number] cefTRIAXone 2 gm In 50 Sodium Chloride 0.9% 50 ml @ 100 mls/hr IVPB Q24HR [facility] Rx#:[id number] levETIRAcetam IV 1,500 mg 100 100 In Saline 1 100ml.bag @ 400 mls/hr IVPB Q12HR [facility] Rx#:[id number] Intake, IV Titration 117.669 89.589 Amount Dexmedetomidine/0.9% NaCl 117.669 89.589 (Pmx) 400 mcg In Empty Bag 1 bag @ 0.2 MCG/KG/HR 4.54 mls/hr IV .Q22H2M [facility] Rx#:[id number] Output: Urine 1525 1430 210 Other: Voiding Method Indwelling Catheter Indwelling Catheter Indwelling Catheter # Bowel Movements 1 - Exam Physical Exam: Revealed a 62-year-old female in no distress, on BiPAP, Head: Atraumatic, normocephalic HEENT:[Neck is supple.] [No neck masses.] [No thyromegaly.] [No JVD.] Chest: Symmetrical chest expansion diminished breath sound bilaterally and crackles noted. Cardiac Exam: Distant S1 and S2, no S3 gallop, 2/6 systolic murmur thought the precordium. Abdomen: [Obese, Soft, nontender, no megaly, no rebound, no guarding, normal bowel sounds.] Extremities: Trace of edema, no clubbing, no cyanosis..] Neurological Exam: Awake, pleasant, no gross focal neurologic deficit Psychiatric: Normal mood affect and normal mental status examination - Labs CBC & Chem 7: 06/19/23 03:55 06/19/23 03:55 Labs: Abnormal Lab Results - Last 24 Hours (Table) 06/18/23 06/18/23 06/19/23 Range/Units 16:10 20:06 03:55 Hgb 10.7 L (11.4-16.0) gm/dL MCV 75.8 L (80.0-100.0) fL MCH 22.6 L (25.0-35.0) pg MCHC 29.8 L (31.0-37.0) g/dL RDW 20.7 H (11.5-15.5) % Lymphocytes # 0.6 L (1.0-4.8) k/uL ABG pCO2 (35-45) mmHg ABG pO2 (83-108) mmHg ABG HCO3 (21-25) mmol/L ABG Total CO2 (19-24) mmol/L Chloride (98-107) mmol/L Carbon Dioxide (22-30) mmol/L BUN (7-17) mg/dL Glucose (74-99) mg/dL POC Glucose (mg/dL) 156 H 184 H (70-110) mg/dL 06/19/23 06/19/23 06/19/23 Range/Units 03:55 06:36 09:34 Hgb (11.4-16.0) gm/dL MCV (80.0-100.0) fL MCH (25.0-35.0) pg MCHC (31.0-37.0) g/dL RDW (11.5-15.5) % Lymphocytes # (1.0-4.8) k/uL ABG pCO2 68 H (35-45) mmHg ABG pO2 82 L (83-108) mmHg ABG HCO3 42 H* (21-25) mmol/L ABG Total CO2 44 H (19-24) mmol/L Chloride 89 L (98-107) mmol/L Carbon Dioxide 36 H (22-30) mmol/L BUN 31 H (7-17) mg/dL Glucose 165 H (74-99) mg/dL POC Glucose (mg/dL) 191 H (70-110) mg/dL 06/19/23 Range/Units 11:24 Hgb (11.4-16.0) gm/dL MCV (80.0-100.0) fL MCH (25.0-35.0) pg MCHC (31.0-37.0) g/dL RDW (11.5-15.5) % Lymphocytes # (1.0-4.8) k/uL ABG pCO2 (35-45) mmHg ABG pO2 (83-108) mmHg ABG HCO3 (21-25) mmol/L ABG Total CO2 (19-24) mmol/L Chloride (98-107) mmol/L Carbon Dioxide (22-30) mmol/L BUN (7-17) mg/dL Glucose (74-99) mg/dL POC Glucose (mg/dL) 161 H (70-110) mg/dL Microbiology - Last 24 Hours (Table) 06/16/23 05:54 Blood Culture - Preliminary Blood Assessment and Plan Assessment: Impression: Acute on chronic hypoxic and hypercapnic respiratory failure Acute on chronic diastolic congestive heart failure Cannot rule out underlying pneumonia especially with elevated pro calcitonin level and she does have diastolic congestive heart failure Severe underlying COPD with chronic hypercapnia Acute metabolic encephalopathy secondary mostly to hypercapnia Chronic ongoing tobacco dependence Type 2 diabetes without complications Dyslipidemia Benign essential hypertension Degenerative joint disease, history of gout Recommendation: Continue BiPAP, continue intermittently to try on nasal cannula Continue steroids. Continue Haldol and Precedex to control her agitation. Continue updrafts/DuoNeb and Pulmicort. Continue antibiotics and diuretics Continue to monitor in the ICU we will continue to follow continue GI and DVT prophylaxis Time with Patient: Less than 30
--- NOTE | 2023-06-19 12:19 | P.PN ---
Subjective Progress Note Date: 06/19/23 The patient is a 62-year-old female who is currently admitted to the hospital with shortness of breath and acute mental status changes. She was found to be in hypoxic respiratory failure and was started on BiPAP. She has been agitated and combative against her BiPAP and is therefore sedated on Precedex. Yesterday the patient was started on Aldactone. The patient is currently resting on BiPAP. According to nursing staff she still gets agitated when aroused. GENERAL: Well-appearing, well-nourished and in no acute distress. Currently on BiPAP NECK: Supple without JVD or thyromegaly. LUNGS: Breath sounds diminished to auscultation bilaterally. Respiration equal and unlabored. No wheezes. Fine crackles noted in the bases HEART: Regular rate and rhythm without murmurs, rubs or gallops. S1 and S2 heard. EXTREMITIES: Normal range of motion, no edema. No clubbing or cyanosis. Peripheral pulses intact and strong. TELEMETRY: Sinus rhythm overnight LABS: WBC 7.7, hemoglobin 10.7, hematocrit 35.9, platelet 288, sodium 141, potassium 3.9, BUN 31, creatinine 0.62, magnesium 1.7 IMPRESSION: Acute hypoxic and hypercapnic respiratory failure Acute on chronic diastolic congestive heart failure Severe COPD with chronic hypercapnia Acute metabolic encephalopathy Current smoker Diabetes mellitus Dyslipidemia Hypertension PLAN: Continue maximal medical treatment Continue aggressive pulmonary hygiene No further recommendations from the cardiac standpoint I am dictating on behalf of Dr Louis Miller's history/physical and assessment/plan. Objective - Vital Signs Vital signs: Vital Signs Temp 97.7 F 06/19/23 04:00 Pulse 70 06/19/23 11:52 Resp 19 06/19/23 11:52 BP 117/67 06/19/23 11:00 Pulse Ox 95 06/19/23 11:00 FiO2 40 06/19/23 11:54 Intake & Output 06/18/23 06/19/23 06/19/23 18:59 06:59 18:59 Intake Total 437.669 299.589 200 Output Total 1525 1430 535 Balance -1087.331 -1130.411 -335 Weight 93.7 kg Intake: IV 320 210 200 0.9 KVO 70 110 50 Magnesium Sulfate-D5w Pmx 100 1 gm In Dextrose/Water 1 100ml.bag @ 100 mls/hr IVPB ONCE ONE Rx#: [id number] cefTRIAXone 2 gm In 50 50 Sodium Chloride 0.9% 50 ml @ 100 mls/hr IVPB Q24HR [facility] Rx#:[id number] levETIRAcetam IV 1,500 mg 100 100 100 In Saline 1 100ml.bag @ 400 mls/hr IVPB Q12HR [facility] Rx#:[id number] Intake, IV Titration 117.669 89.589 Amount Dexmedetomidine/0.9% NaCl 117.669 89.589 (Pmx) 400 mcg In Empty Bag 1 bag @ 0.2 MCG/KG/HR 4.54 mls/hr IV .Q22H2M [facility] Rx#:[id number] Output: Urine 1525 1430 535 Other: Voiding Method Indwelling Catheter Indwelling Catheter Indwelling Catheter # Bowel Movements 1 - Labs CBC & Chem 7: 06/19/23 03:55 06/19/23 03:55 Labs: Abnormal Lab Results - Last 24 Hours (Table) 06/18/23 06/18/23 06/19/23 Range/Units 16:10 20:06 03:55 Hgb 10.7 L (11.4-16.0) gm/dL MCV 75.8 L (80.0-100.0) fL MCH 22.6 L (25.0-35.0) pg MCHC 29.8 L (31.0-37.0) g/dL RDW 20.7 H (11.5-15.5) % Lymphocytes # 0.6 L (1.0-4.8) k/uL ABG pCO2 (35-45) mmHg ABG pO2 (83-108) mmHg ABG HCO3 (21-25) mmol/L ABG Total CO2 (19-24) mmol/L Chloride (98-107) mmol/L Carbon Dioxide (22-30) mmol/L BUN (7-17) mg/dL Glucose (74-99) mg/dL POC Glucose (mg/dL) 156 H 184 H (70-110) mg/dL 06/19/23 06/19/23 06/19/23 Range/Units 03:55 06:36 09:34 Hgb (11.4-16.0) gm/dL MCV (80.0-100.0) fL MCH (25.0-35.0) pg MCHC (31.0-37.0) g/dL RDW (11.5-15.5) % Lymphocytes # (1.0-4.8) k/uL ABG pCO2 68 H (35-45) mmHg ABG pO2 82 L (83-108) mmHg ABG HCO3 42 H* (21-25) mmol/L ABG Total CO2 44 H (19-24) mmol/L Chloride 89 L (98-107) mmol/L Carbon Dioxide 36 H (22-30) mmol/L BUN 31 H (7-17) mg/dL Glucose 165 H (74-99) mg/dL POC Glucose (mg/dL) 191 H (70-110) mg/dL 06/19/23 Range/Units 11:24 Hgb (11.4-16.0) gm/dL MCV (80.0-100.0) fL MCH (25.0-35.0) pg MCHC (31.0-37.0) g/dL RDW (11.5-15.5) % Lymphocytes # (1.0-4.8) k/uL ABG pCO2 (35-45) mmHg ABG pO2 (83-108) mmHg ABG HCO3 (21-25) mmol/L ABG Total CO2 (19-24) mmol/L Chloride (98-107) mmol/L Carbon Dioxide (22-30) mmol/L BUN (7-17) mg/dL Glucose (74-99) mg/dL POC Glucose (mg/dL) 161 H (70-110) mg/dL Microbiology - Last 24 Hours (Table) 06/16/23 05:54 Blood Culture - Preliminary Blood
[2023-06-19 16:21] LABS: Glucose,Whole Blood 168 mg/dL (70-110)
[2023-06-19 20:23] LABS: Glucose,Whole Blood 205 mg/dL (70-110)
[2023-06-19] MEDS: ATORVASTATIN 80 MG TAB PO SCH (20:53)
[2023-06-20] MEDS: FUROSEMIDE 10 MG/ML 4 ML VIAL IV SCH ×4 (00:39→23:46)
[2023-06-20] MEDS: methylPREDNISolone SOD SUCCI 125 MG/2 ML VIAL IV SCH ×5 (00:39→23:46)
--- NOTE | 2023-06-20 03:05 | PN ---
PROGRESS NOTE DATE OF SERVICE: 06/18/2023 SUBJECTIVE: This is a 62-year-old woman who was admitted with COPD acute exacerbation, was also confused. The patient is on BiPAP. Sensorium appears to be slightly better today with a portable chest x-ray done today which I reviewed personally and showed some right lower lobe infiltrate/atelectasis. PAST MEDICAL HISTORY: Reviewed. REVIEW OF SYSTEMS: Could not be taken. CURRENT MEDICATIONS: Reviewed include Rocephin, doses and rest of medications noted. PHYSICAL EXAMINATION: VITAL SIGNS: Pulse 75, blood pressure , respirations 15. HEENT: Conjunctivae normal. NECK: No JVD. CARDIOVASCULAR: S1, S2. RESPIRATIONS: . ABDOMEN: Soft obese legs. NERVOUS SYSTEM: Nonfocal. LABORATORY DATA: Reviewed. This pCO2 is 68 in the ABG. The cultures are negative so far. ASSESSMENT: 1. Chronic obstructive pulmonary disease acute exacerbation and congestive heart failure acute exacerbation with acute hypoxic hypercarbic respiratory failure. 2. Acute metabolic encephalopathy secondary to above. 3. Acute change in mental status. 4. Increased WBC. 5. Diabetes mellitus, type 2. 6. Gastroesophageal reflux disease. 7. Hypertension. 8. Hyperlipidemia. 9. Acute on chronic diastolic dysfunction and congestive heart failure. 10.Multiple medical issues. RECOMMENDATIONS: Recommend to continue current management with diuretics, repeat labs, continue with BiPAP. Ensure oxygenation. Closely follow with Pulmonary. Prognosis guarded. Further recommendations to follow. MMODL / IJN: [id number] /
[2023-06-20] MEDS: DEXMEDETOMIDINE/0.9% NACL(PMX) 400 MCG in EMPTY BAG 1 BAG IV SCH (04:25)
[2023-06-20 04:27] LABS: Anisocytosis Moderate; Basophils % (A) 0 %; Eosinophils % (A) 1 %; HCT 38.5 % (34.0-46.0); HGB 10.8 gm/dL (11.4-16.0); Hypochromasia Marked; Lymphocytes # (A) 0.5 k/uL (1.0-4.8); Lymphocytes % (A) 10 %; MCH 21.7 pg (25.0-35.0); MCV 77.6 fL (80.0-100.0); Mean Platelet Volume 8.5; Microcytosis Moderate; Monocytes # (A) 0.3 k/uL (0-1.0); Monocytes % (A) 5 %; Neutrophils # (A) 3.9 k/uL (1.3-7.7); Neutrophils % (A) 83 %; Platelet Count 245 k/uL (150-450); Poikilocytosis Slight; RBC 4.95 m/uL (3.80-5.40); RDW 20.4 % (11.5-15.5); WBC 4.7 k/uL (3.8-10.6)
[2023-06-20 04:58] LABS: African American GFR (CKD) >90 (>60 ml/min/1.73 sqM); Blood Urea Nitrogen 31 mg/dL (7-17); Calcium 8.7 mg/dL (8.4-10.2); Chloride 90 mmol/L (98-107); Glucose 166 mg/dL (74-99); Magnesium 1.7 mg/dL (1.6-2.3); Non-African American GFR(CKD) >90 (>60 ml/min/1.73 sqM); Potassium 3.4 mmol/L (3.5-5.1); Sodium 144 mmol/L (137-145)
[2023-06-20 06:29] LABS: Glucose,Whole Blood 214 mg/dL (70-110)
[2023-06-20] MEDS: INSULIN ASPART (NovoLOG) 100 UNIT/ML VIAL SQ SCH ×3 (06:36→17:41)
[2023-06-20] MEDS: INSULIN DETEMIR (LEVEMIR) 100 UNIT/ML SYR SQ SCH (06:37)
[2023-06-20 06:53] LABS: Anion Gap 17 mmol/L; Carbon Dioxide 37 mmol/L (22-30)
--- NOTE | 2023-06-20 07:29 | XR ---
EXAMINATION TYPE: XR chest 1V portable DATE OF EXAM: 06/20/2023 5:42 AM COMPARISON: Chest radiographs from 06/19/2023. TECHNIQUE: XR chest 1V portable Frontal view of the chest. CLINICAL INDICATION:Female, 62 years old with history of assess lungs; FINDINGS: Lungs/Pleura: No evidence of focal consolidation or pneumothorax. Blunting of the costophrenic angles is present. Pulmonary vascularity: Unremarkable. Heart/mediastinum: Cardiomediastinal silhouette is prominent in size. Musculoskeletal: No acute osseous pathology. Fixation hardware in the spine with dextroscoliosis. IMPRESSION: Relatively stable exam is thought to be layering pleural effusions.
[2023-06-20] MEDS: IPRATROPIUM-ALBUTEROL 3 ML NEB INHALATION SCH ×4 (07:54→20:36)
[2023-06-20] MEDS: BUDESONIDE 1 MG/2 ML NEBU INHALATION SCH ×2 (07:54→20:36)
[2023-06-20] MEDS: FORMOTEROL FUMARATE 20 MCG/2 ML NEBU INHALATION SCH ×2 (07:55→20:36)
--- NOTE | 2023-06-20 08:19 | P.PN ---
Subjective Progress Note Date: 06/20/23 Principal diagnosis: Heart failure The patient is a 62-year-old female patient with heart failure with preserved ejection fraction as well as chronic obstructive pulmonary disease as well as obesity as well as multiple comorbid conditions including diabetes and hypertension and dyslipidemia was admitted to the hospital with acute hypoxic respiratory failure secondary to COPD exacerbation and CHF exacerbation. June 202022 The patient was seen and evaluated this morning. She is stable hemodynamically and not on any vasopressors patient continues to be hypoxic on BiPAP. She continues to diurese very well. Currently she is on Lasix IV. From the cardiovascular standpoint overview, I would suggest continue the current medical regimen including the current dose of Lasix IV. Her kidney function remains stable. Her GFR remains above 90. The chest x-ray continues to show evidence of volume overload with bilateral pleural effusion. The examination is remarkable for diminished breathing sounds bilaterally. Assessment Acute hypoxic respiratory failure COPD exacerbation Heart failure exacerbation secondary to heart failure with a preserved ejection fraction Metabolic encephalopathy Multiple comorbid conditions including diabetes and hypertension and dyslipi demia Plan Continue the current dose of Lasix IV Continue monitor the kidney function and electrolytes Follow-up with the patient Objective - Vital Signs Vital signs: Vital Signs Temp 97.8 F 06/20/23 04:00 Pulse 86 06/20/23 08:12 Resp 14 06/20/23 07:00 BP 135/76 06/20/23 07:00 Pulse Ox 94 L 06/20/23 07:00 FiO2 40 06/20/23 07:57 Intake & Output 06/19/23 06/20/23 06/20/23 18:59 06:59 18:59 Intake Total 335.305 392.648 10 Output Total 1625 1320 120 Balance -1289.695 -927.352 -110 Weight 92.2 kg Intake: IV 300 200 10 0.9 KVO 150 200 10 cefTRIAXone 2 gm In 50 Sodium Chloride 0.9% 50 ml @ 100 mls/hr IVPB Q24HR [facility] Rx#:[id number] levETIRAcetam IV 1,500 mg 100 In Saline 1 100ml.bag @ 400 mls/hr IVPB Q12HR [facility] Rx#:[id number] Intake, IV Titration 35.305 192.648 Amount Dexmedetomidine/0.9% NaCl 35.305 192.648 (Pmx) 400 mcg In Empty Bag 1 bag @ 0.2 MCG/KG/HR 4.54 mls/hr IV .Q22H2M [facility] Rx#:[id number] Output: Urine 1625 1320 120 Other: Voiding Method Indwelling Catheter Indwelling Catheter # Bowel Movements 1 - Labs CBC & Chem 7: 06/20/23 03:25 06/20/23 03:25 Labs: Abnormal Lab Results - Last 24 Hours (Table) 06/19/23 06/19/23 06/19/23 Range/Units 09:34 11:24 16:20 Hgb (11.4-16.0) gm/dL MCV (80.0-100.0) fL MCH (25.0-35.0) pg MCHC (31.0-37.0) g/dL RDW (11.5-15.5) % Lymphocytes # (1.0-4.8) k/uL ABG pCO2 68 H (35-45) mmHg ABG pO2 82 L (83-108) mmHg ABG HCO3 42 H* (21-25) mmol/L ABG Total CO2 44 H (19-24) mmol/L Potassium (3.5-5.1) mmol/L Chloride (98-107) mmol/L Carbon Dioxide (22-30) mmol/L BUN (7-17) mg/dL Glucose (74-99) mg/dL POC Glucose (mg/dL) 161 H 168 H (70-110) mg/dL 06/19/23 06/20/23 06/20/23 Range/Units 20:21 03:25 03:25 Hgb 10.8 L (11.4-16.0) gm/dL MCV 77.6 L (80.0-100.0) fL MCH 21.7 L (25.0-35.0) pg MCHC 28.0 L (31.0-37.0) g/dL RDW 20.4 H (11.5-15.5) % Lymphocytes # 0.5 L (1.0-4.8) k/uL ABG pCO2 (35-45) mmHg ABG pO2 (83-108) mmHg ABG HCO3 (21-25) mmol/L ABG Total CO2 (19-24) mmol/L Potassium 3.4 L (3.5-5.1) mmol/L Chloride 90 L (98-107) mmol/L Carbon Dioxide 37 H (22-30) mmol/L BUN 31 H (7-17) mg/dL Glucose 166 H (74-99) mg/dL POC Glucose (mg/dL) 205 H (70-110) mg/dL 06/20/23 Range/Units 06:27 Hgb (11.4-16.0) gm/dL MCV (80.0-100.0) fL MCH (25.0-35.0) pg MCHC (31.0-37.0) g/dL RDW (11.5-15.5) % Lymphocytes # (1.0-4.8) k/uL ABG pCO2 (35-45) mmHg ABG pO2 (83-108) mmHg ABG HCO3 (21-25) mmol/L ABG Total CO2 (19-24) mmol/L Potassium (3.5-5.1) mmol/L Chloride (98-107) mmol/L Carbon Dioxide (22-30) mmol/L BUN (7-17) mg/dL Glucose (74-99) mg/dL POC Glucose (mg/dL) 214 H (70-110) mg/dL Microbiology - Last 24 Hours (Table) 06/16/23 05:54 Blood Culture - Preliminary Blood
[2023-06-20] MEDS ORDERED: ERGOCALCIFEROL 1,250 MCG (50,000 IU) CAPSULE PO SCH (09:00)
[2023-06-20] MEDS: MAGNESIUM OXIDE 400 MG TAB PO SCH ×2 (09:59→20:21)
[2023-06-20] MEDS: SPIRONOLACTONE 25 MG TAB PO SCH (09:59)
[2023-06-20] MEDS: METOPROLOL TARTRATE 12.5 MG TAB PO SCH ×2 (09:59→20:21)
[2023-06-20] MEDS: HEPARIN SODIUM,PORCINE 5,000 UNIT/ML 1 ML VIAL SQ SCH ×2 (10:00→20:28)
[2023-06-20] MEDS: PANTOPRAZOLE 40 MG/10 ML VIAL IVP SCH (10:00)
[2023-06-20] MEDS: NICOTINE 21MG/24HR PATCH TRANSDERM SCH (10:00)
[2023-06-20] MEDS: levETIRAcetam IV 500 MG/5 ML VIAL IVP SCH ×2 (10:00→20:28)
[2023-06-20] MEDS: allopurinoL 100 MG TAB PO SCH (10:00)
[2023-06-20] MEDS: FENOFIBRATE 160 MG TAB PO SCH (10:21)
--- NOTE | 2023-06-20 10:28 | P.PN ---
Subjective Progress Note Date: 06/20/23 This is a 62-year-old female, familiar to our service, patient was seen actually a month ago during her last admission at [facility]. Patient is known to have history of chronic diastolic congestive heart failure, COPD, glaucoma, chronic low back pain, hypertension, degenerative joint disease, chronic hypoxic respiratory failure on home oxygen, chronic and ongoing tobacco dependence, type 2 diabetes, dyslipidemia, patient had multiple admissions in the past with altered mental status and hypoxemia as well as hypercapnia. Could not get much history from the patient. Apparently the patient was brought into the ER with complaints of cough and shortness of breath. Apparently upon arrival the patient was extremely agitated, and that 3 people to hold him down, and the patient was given 1 dose of Ativan, and when I evaluated the patient she was clearly obtunded, could not even arouse the patient with deep painful stimuli, hence I recommended placing the patient on BiPAP, ABG prior to placement on BiPAP showed a significant hypercapnia, pCO2 of 95 pH of 7.28 and pO2 was 76. This was on 50% FiO2. I recommended that the patient goes on BiPAP, and instead of admitting the patient to the medical floor, and recommended admitting the patient to the ICU setting. Chest x-ray showed evidence of pulmonary edema labs showed significantly elevated BNP level, relatively normal CBC with a hemoglobin of 10.8, WBC count 11.2, basic metabolic profile was relatively normal. Bicarb was noted to be 36 indicative of chronic hypercapnia and metabolic compensation. BNP level was 10,900, influenza RSV and COVID-19 screening were made Reevaluated today on 06/17/2023, patient remains in the ICU, on BiPAP 12//40%, patient is lethargic nonetheless she is arousable with deep painful stimuli. She is in normal sinus rhythm, blood pressure 109/64, does not seem to be in any distress. WBC count is 8.9 hemoglobin 10.8 electrolytes are relatively normal except bicarb is 41 renal profile is normal. CT brain is unremarkable from admission. Chest x-ray showed cardiomegaly and mild pulmonary vascular congestion, patient had elevated BNP level of 10,900. She also had elevated pro calcitonin of 0.201 admission. Still receiving diuretics and antibiotics since admission she is on Rocephin and Zithromax Reevaluated today on , patient remains in the ICU, on BiPAP, 12/5/40%. Patient is also on Precedex at 0.2 mcg/kg/hour, she received Haldol yesterday because she was getting quite agitated in spite of Precedex. This morning I was able to awaken the patient, seems to be pleasant and appropriate, hence we'll try the patient on a nasal cannula and set of BiPAP. WBC count is 5.4 hemoglobin 10.7 electrodes are normal renal profile is normal. Patient is relatively asymptomatic but according to the nurses she has intermittent episodes of confusion and agitation nonetheless I plan to keep her on Precedex today, and I plan to keep her in the ICU today. Reevaluated today on 06/19/2023, patient remains in ICU, remains on 12/5/40%, ABG today showed a pO2 of 82 pCO2 67 pH of 7.40. Patient remains on Precedex at 0.5 mcg/kg/h remains calm, and hopefully we can eventually transitioned the patient to nasal cannula, we continue to try on a daily basis to see if she could tolerate coming off BiPAP. The ABG this morning seems to be reassuring is that of than expected. MHC count 7.7 hemoglobin is 10.7. Basic metabolic profile and renal profile is normal bicarb is 36. Chest x-ray is showing improvement with pulmonary venous congestion, minimal right basilar atelectasis and small effusion is possible. The patient is seen today 06/20/2023 in follow-up in the intensive care unit. She remains on BiPAP 12/ on 40% FiO2. She remains confused to time and place. risk mgr at the bedside. Her Precedex infusion is currently off. Blood culture reveals no growth. White count 4.7. Hemoglobin 10.8. Platelets 245. Sodium 144. Potassium 3.4. Bicarb 37. BUN 31. Creatinine 0.58. Glucose 166. He is continued on DuoNeb inhalations, Pulmicort and Perforomist inhalations, IV Solu-Medrol. She also remains on IV diuretics. Currently in a -2.2 L balance. NicoDerm patch in place. She is continued on ceftriaxone. Heparin for DVT prophylaxis. Chest x-ray remains stable with some trace to small bilateral pleural effusions. Objective - Vital Signs Vital signs: Vital Signs Temp 97.8 F 06/20/23 04:00 Pulse 98 06/20/23 08:21 Resp 14 06/20/23 07:00 BP 135/76 06/20/23 07:00 Pulse Ox 94 L 06/20/23 07:00 FiO2 40 06/20/23 07:57 Intake & Output 06/19/23 06/20/23 06/20/23 18:59 06:59 18:59 Intake Total 335.305 392.648 255.675 Output Total 1625 1320 120 Balance -1289.695 -927.352 135.675 Weight 92.2 kg Intake: IV 300 200 10 0.9 KVO 150 200 10 cefTRIAXone 2 gm In 50 Sodium Chloride 0.9% 50 ml @ 100 mls/hr IVPB Q24HR [facility] Rx#:[id number] levETIRAcetam IV 1,500 mg 100 In Saline 1 100ml.bag @ 400 mls/hr IVPB Q12HR [facility] Rx#:[id number] Intake, IV Titration 35.305 192.648 5.675 Amount Dexmedetomidine/0.9% NaCl 35.305 192.648 5.675 (Pmx) 400 mcg In Empty Bag 1 bag @ 0.2 MCG/KG/HR 4.54 mls/hr IV .Q22H2M [facility] Rx#:[id number] Oral 240 Output: Urine 1625 1320 120 Other: Voiding Method Indwelling Catheter Indwelling Catheter # Bowel Movements 1 - Exam GENERAL EXAM: Alert, confused 62-year-old female on BiPAP 12/5 and 40% FiO2, comfortable in no apparent distress. HEAD: Normocephalic. EYES: Normal reaction of pupils, equal size. NOSE: Clear with pink turbinates. THROAT: No erythema or exudates. NECK: No masses, no JVD. CHEST: No chest wall deformity. LUNGS: Equal air entry with faint crackles in the posterior bases. CVS: S1 and S2 normal with no audible murmur, regular rhythm. ABDOMEN: No hepatosplenomegaly, normal bowel sounds, no guarding or rigidity. SPINE: No scoliosis or deformity SKIN: No rashes CENTRAL NERVOUS SYSTEM: No focal deficits, tone is normal in all 4 extremities. EXTREMITIES: There is no peripheral edema. No clubbing, no cyanosis. Peripheral pulses are intact. - Labs CBC & Chem 7: 06/20/23 03:25 06/20/23 03:25 Labs: Abnormal Lab Results - Last 24 Hours (Table) 06/19/23 06/19/23 06/19/23 Range/Units 11:24 16:20 20:21 Hgb (11.4-16.0) gm/dL MCV (80.0-100.0) fL MCH (25.0-35.0) pg MCHC (31.0-37.0) g/dL RDW (11.5-15.5) % Lymphocytes # (1.0-4.8) k/uL Potassium (3.5-5.1) mmol/L Chloride (98-107) mmol/L Carbon Dioxide (22-30) mmol/L BUN (7-17) mg/dL Glucose (74-99) mg/dL POC Glucose (mg/dL) 161 H 168 H 205 H (70-110) mg/dL 06/20/23 06/20/23 06/20/23 Range/Units 03:25 03:25 06:27 Hgb 10.8 L (11.4-16.0) gm/dL MCV 77.6 L (80.0-100.0) fL MCH 21.7 L (25.0-35.0) pg MCHC 28.0 L (31.0-37.0) g/dL RDW 20.4 H (11.5-15.5) % Lymphocytes # 0.5 L (1.0-4.8) k/uL Potassium 3.4 L (3.5-5.1) mmol/L Chloride 90 L (98-107) mmol/L Carbon Dioxide 37 H (22-30) mmol/L BUN 31 H (7-17) mg/dL Glucose 166 H (74-99) mg/dL POC Glucose (mg/dL) 214 H (70-110) mg/dL Microbiology - Last 24 Hours (Table) 06/16/23 05:54 Blood Culture - Preliminary Blood Assessment and Plan Assessment: Acute on chronic hypoxic and hypercapnic respiratory failure secondary to diastolic congestive heart failure and chronic obstructive pulmonary disease exacerbations Acute on chronic diastolic congestive heart failure Cannot rule out underlying pneumonia especially with elevated pro calcitonin level and she does have diastolic congestive heart failure Severe underlying COPD with chronic hypercapnia Acute metabolic encephalopathy secondary mostly to hypercapnia Chronic ongoing tobacco dependence Type 2 diabetes without complications Dyslipidemia Benign essential hypertension Degenerative joint disease History of gout Plan: The patient was seen and evaluated Chest x-ray, labs and medications reviewed Trial the patient off BiPAP and on 2 L nasal cannula Try to stay off Precedex Continue Haldol as needed Continue diuretics, bronchodilators, steroids NicoDerm patch is in place Educated regarding the importance of complete smoking cessation We will continue to follow and make further recommendations based on her clinical status I have personally seen and examined the patient, performed the documentation and the assessment and plan as written. Number of minutes spent on the visit: 10.
[2023-06-20] MEDS: POTASSIUM CHLORIDE ER 20 MEQ TAB.ER PO SCH ×2 (11:00→12:00)
--- NOTE | 2023-06-20 11:08 | P.PN ---
Subjective This is a pleasant 62 years old female with multiple medical problems as below who was admitted for acute hypoxic respiratory and hypercapnic respiratory failure secondary to suspected pneumonia because of the elevated Pro-calcitonin With exacerbation of her chronic obstructive pulmonary disease and acute on chronic diastolic CHF. She is currently covered with ceftriaxone, IV Lasix 40 mg every 8 hours and IV Solu-Medrol 60 mg. Currently she is on BiPAP with a setting of 12/5 and FiO2 of 40%, we will try to get her off the BiPAP today. Cardoza in place with good urine output. She is alert awake oriented 1, she knows she is in [place], she is sleepy and lethargic. Objective - Vital Signs Vital signs: Vital Signs Temp 97.7 F 06/20/23 08:00 Pulse 105 H 06/20/23 10:00 Resp 19 06/20/23 10:00 BP 150/77 06/20/23 10:00 Pulse Ox 87 L 06/20/23 10:00 FiO2 40 06/20/23 07:57 Intake & Output 06/19/23 06/20/23 06/20/23 18:59 06:59 18:59 Intake Total 335.305 392.648 315.675 Output Total 1625 1320 420 Balance -1289.695 -927.352 -104.325 Weight 92.2 kg Intake: IV 300 200 70 0.9 KVO 150 200 20 cefTRIAXone 2 gm In 50 50 Sodium Chloride 0.9% 50 ml @ 100 mls/hr IVPB Q24HR [facility] Rx#:[id number] levETIRAcetam IV 1,500 mg 100 In Saline 1 100ml.bag @ 400 mls/hr IVPB Q12HR [facility] Rx#:[id number] Intake, IV Titration 35.305 192.648 5.675 Amount Dexmedetomidine/0.9% NaCl 35.305 192.648 5.675 (Pmx) 400 mcg In Empty Bag 1 bag @ 0.2 MCG/KG/HR 4.54 mls/hr IV .Q22H2M [facility] Rx#:[id number] Oral 240 Output: Urine 1625 1320 420 Other: Voiding Method Indwelling Catheter Indwelling Catheter Indwelling Catheter # Bowel Movements 1 - Exam -GENERAL: The patient is alert and oriented x1, not in any acute distress. Well developed, well nourished. Lethargic HEENT: Pupils are round and equally reacting to light. EOMI. No scleral icterus. No conjunctival pallor. Normocephalic, atraumatic. No pharyngeal erythema. No thyromegaly. CARDIOVASCULAR: S1 and S2 present. No murmurs, rubs, or gallops. -PULMONARY: Chest is clear to auscultation, no wheezing , no crackles. Mildly tachypneic on BiPAP ABDOMEN: Soft, nontender, nondistended, normoactive bowel sounds. No palpable organomegaly. MUSCULOSKELETAL: No joint swelling or deformity. EXTREMITIES: No cyanosis, clubbing, or pedal edema. NEUROLOGICAL: Gross neurological examination did not reveal any focal deficits. SKIN: No rashes. no petechiae. - Labs CBC & Chem 7: 06/20/23 03:25 06/20/23 03:25 Labs: Abnormal Lab Results - Last 24 Hours (Table) 06/19/23 06/19/23 06/19/23 Range/Units 11:24 16:20 20:21 Hgb (11.4-16.0) gm/dL MCV (80.0-100.0) fL MCH (25.0-35.0) pg MCHC (31.0-37.0) g/dL RDW (11.5-15.5) % Lymphocytes # (1.0-4.8) k/uL Potassium (3.5-5.1) mmol/L Chloride (98-107) mmol/L Carbon Dioxide (22-30) mmol/L BUN (7-17) mg/dL Glucose (74-99) mg/dL POC Glucose (mg/dL) 161 H 168 H 205 H (70-110) mg/dL 06/20/23 06/20/23 06/20/23 Range/Units 03:25 03:25 06:27 Hgb 10.8 L (11.4-16.0) gm/dL MCV 77.6 L (80.0-100.0) fL MCH 21.7 L (25.0-35.0) pg MCHC 28.0 L (31.0-37.0) g/dL RDW 20.4 H (11.5-15.5) % Lymphocytes # 0.5 L (1.0-4.8) k/uL Potassium 3.4 L (3.5-5.1) mmol/L Chloride 90 L (98-107) mmol/L Carbon Dioxide 37 H (22-30) mmol/L BUN 31 H (7-17) mg/dL Glucose 166 H (74-99) mg/dL POC Glucose (mg/dL) 214 H (70-110) mg/dL Microbiology - Last 24 Hours (Table) 06/16/23 05:54 Blood Culture - Preliminary Blood Assessment and Plan Assessment: Acute COPD exacerbation Acute on chronic diastolic CHF with a preserved ejection fraction Acute hypoxic hypercapnic respiratory failure and suspected infection with acute tracheal bronchitis versus early pneumonia given her elevated procalcitonin History of seizure Plan: Continue with IV Solu-Medrol Continue with IV Lasix Continue with ceftriaxone Pulmonary and cardiology consult Labs and medication were reviewed.. Continue same treatment. Continue with symptomatic treatment. Resume home medication. Monitor labs and vitals. DVT and GI prophylaxis. Further recommendations as per clinical course of the patient DVT prophylaxis: Subcutaneous heparin GI Prophylaxis: Ppi PT/OT: Pending Prognosis is guarded
[2023-06-20 11:45] LABS: Glucose,Whole Blood 249 mg/dL (70-110)
[2023-06-20] MEDS: HYDROcodone/APAP 5-325MG 1 EACH TAB PO PRN ×2 (12:55→18:47)
[2023-06-20 16:14] LABS: Glucose,Whole Blood 420 mg/dL (70-110)
[2023-06-20] MEDS ORDERED: INSULIN ASPART (NovoLOG) 100 UNIT/ML VIAL SQ ONE ×2 (18:36→18:48)
[2023-06-20 18:40] LABS: Glucose,Whole Blood 508 mg/dL (70-110)
[2023-06-20] MEDS ORDERED: DEXTROSE 50% SYRINGE 50 ML IVP PRN ×2 (18:45)
[2023-06-20] MEDS ORDERED: INSULIN ASPART (NovoLOG) 100 UNIT/ML VIAL SQ SCH (18:46)
[2023-06-20] MEDS ORDERED: INSULIN DETEMIR (LEVEMIR) 100 UNIT/ML SYR SQ ONE (19:00)
[2023-06-20 20:03] LABS: Glucose,Whole Blood 501 mg/dL (70-110)
[2023-06-20] MEDS: ATORVASTATIN 80 MG TAB PO SCH (20:21)
[2023-06-20] MEDS: INSULIN REGULAR 100 UNIT in SODIUM CHLORIDE 0.9% 100 ML IV SCH (20:42)
[2023-06-20] MEDS ORDERED: INSULIN DETEMIR (LEVEMIR) 100 UNIT/ML SYR SQ SCH (21:00)
[2023-06-20 21:35] LABS: Glucose,Whole Blood 370 mg/dL (70-110)
[2023-06-20] MEDS: MORPHINE SULFATE 2 MG/ML SYRINGE IVP PRN (21:44)
[2023-06-20 22:30] LABS: Glucose,Whole Blood 294 mg/dL (70-110)
[2023-06-20 23:52] LABS: Glucose,Whole Blood 221 mg/dL (70-110)
[2023-06-21] MEDS: HYDROcodone/APAP 5-325MG 1 EACH TAB PO PRN ×4 (00:03→22:25)
[2023-06-21 01:03] LABS: Glucose,Whole Blood 143 mg/dL (70-110)
[2023-06-21 02:04] LABS: Glucose,Whole Blood 108 mg/dL (70-110)
[2023-06-21 03:12] LABS: Glucose,Whole Blood 116 mg/dL (70-110)
[2023-06-21 03:52] LABS: Glucose,Whole Blood 151 mg/dL (70-110)
[2023-06-21 04:25] LABS: Anisocytosis Moderate; Basophils % (A) 0 %; Eosinophils % (A) 0 %; HCT 36.4 % (34.0-46.0); HGB 10.8 gm/dL (11.4-16.0); Hypochromasia Marked; Lymphocytes # (A) 0.4 k/uL (1.0-4.8); Lymphocytes % (A) 4 %; MCH 22.2 pg (25.0-35.0); MCHC 29.7 g/dL (31.0-37.0); MCV 74.8 fL (80.0-100.0); Mean Platelet Volume 8.8; Microcytosis Moderate; Monocytes # (A) 0.8 k/uL (0-1.0); Monocytes % (A) 9 %; Neutrophils # (A) 7.6 k/uL (1.3-7.7); Neutrophils % (A) 84 %; Platelet Count 292 k/uL (150-450); Poikilocytosis Moderate; RBC 4.87 m/uL (3.80-5.40); RDW 20.6 % (11.5-15.5)
[2023-06-21 04:49] LABS: African American GFR (CKD) >90 (>60 ml/min/1.73 sqM); Blood Urea Nitrogen 34 mg/dL (7-17); Calcium 8.8 mg/dL (8.4-10.2); Chloride 88 mmol/L (98-107); Glucose 132 mg/dL (74-99); Non-African American GFR(CKD) >90 (>60 ml/min/1.73 sqM); Potassium 3.5 mmol/L (3.5-5.1); Sodium 143 mmol/L (137-145)
[2023-06-21 04:56] LABS: Anion Gap 4 mmol/L
[2023-06-21 05:03] LABS: Carbon Dioxide 51 mmol/L (22-30)
[2023-06-21 05:11] LABS: Glucose,Whole Blood 180 mg/dL (70-110)
[2023-06-21 06:06] LABS: Glucose,Whole Blood 218 mg/dL (70-110)
[2023-06-21] MEDS: methylPREDNISolone SOD SUCCI 125 MG/2 ML VIAL IV SCH (06:29)
[2023-06-21] MEDS: POTASSIUM CHLORIDE ER 20 MEQ TAB.ER PO SCH ×2 (06:44→08:15)
[2023-06-21 06:49] LABS: Glucose,Whole Blood 205 mg/dL (70-110)
--- NOTE | 2023-06-21 07:37 | P.PN ---
Subjective Progress Note Date: 06/21/23 Principal diagnosis: Heart failure The patient is a 62-year-old female patient with heart failure with preserved ejection fraction as well as chronic obstructive pulmonary disease as well as obesity as well as multiple comorbid conditions including diabetes and hypertension and dyslipidemia was admitted to the hospital with acute hypoxic respiratory failure secondary to COPD exacerbation and CHF exacerbation. June 202022 The patient was seen and evaluated this morning. She is stable hemodynamically and not on any vasopressors patient continues to be hypoxic on BiPAP. She continues to diurese very well. Currently she is on Lasix IV. From the cardiovascular standpoint overview, I would suggest continue the current medical regimen including the current dose of Lasix IV. Her kidney function remains stable. Her GFR remains above 90. The chest x-ray continues to show evidence of volume overload with bilateral pleural effusion. June 212022 The patient was seen and evaluated this morning. She seems to be better overall. Hemodynamically she remained stable and not on any vasopressors. She continues to be on oxygen. Her CO2 has been in the the chest x-ray showed bilateral pleural effusions slightly worse on the right than the left. I am going to decrease the dose of Lasix given the increasing CO2 as well as she is not in overt volume overload. Down the line would switch her to oral Lasix. Beside that because she is tachycardic results of beta lg. The examination is remarkable for diminished breathing sounds bilaterally. Assessment Acute hypoxic respiratory failure COPD exacerbation Heart failure exacerbation secondary to heart failure with a preserved ejection fraction Metabolic encephalopathy Multiple comorbid conditions including diabetes and hypertension and dyslipidemia Plan Decrease the dose of Lasix IV Continue monitor the kidney function and electrolytes Follow-up with the patient Objective - Vital Signs Vital signs: Vital Signs Temp 97.9 F 06/21/23 04:00 Pulse 93 06/21/23 07:00 Resp 18 06/21/23 07:00 BP 150/81 06/21/23 07:00 Pulse Ox 92 L 06/21/23 07:00 FiO2 40 06/20/23 07:57 Intake & Output 06/20/23 06/21/23 06/21/23 18:59 06:59 18:59 Intake Total 875.675 644.300 2.154 Output Total 2120 1540 Balance -1244.325 -895.700 2.154 Weight 87 kg Intake: IV 110 60 0.9 KVO 20 Invasive Line 3 20 30 Invasive Line 4 20 30 cefTRIAXone 2 gm In 50 Sodium Chloride 0.9% 50 ml @ 100 mls/hr IVPB Q24HR [facility] Rx#:[id number] Intake, IV Titration 5.675 44.300 2.154 Amount Dexmedetomidine/0.9% NaCl 5.675 (Pmx) 400 mcg In Empty Bag 1 bag @ 0.2 MCG/KG/HR 4.54 mls/hr IV .Q22H2M [facility] Rx#:[id number] Insulin Regular 100 unit 44.300 2.154 In Sodium Chloride 0.9% 100 ml @ Titrate IV .Q0M [facility] Rx#:[id number] Oral 760 540 Output: Urine 2120 1540 Other: Voiding Method Indwelling Catheter Indwelling Catheter # Bowel Movements 5 - Labs CBC & Chem 7: 06/21/23 03:48 06/21/23 03:48 Labs: Abnormal Lab Results - Last 24 Hours (Table) 06/20/23 06/20/23 06/20/23 Range/Units 03:25 11:44 16:12 Hgb (11.4-16.0) gm/dL MCV (80.0-100.0) fL MCH (25.0-35.0) pg MCHC (31.0-37.0) g/dL RDW (11.5-15.5) % Lymphocytes # (1.0-4.8) k/uL Chloride (98-107) mmol/L Carbon Dioxide (22-30) mmol/L BUN (7-17) mg/dL Glucose (74-99) mg/dL POC Glucose (mg/dL) 249 H 420 H (70-110) mg/dL Hemoglobin A1c 8.2 H (<=6.0) % 06/20/23 06/20/23 06/20/23 Range/Units 18:39 20:02 21:34 Hgb (11.4-16.0) gm/dL MCV (80.0-100.0) fL MCH (25.0-35.0) pg MCHC (31.0-37.0) g/dL RDW (11.5-15.5) % Lymphocytes # (1.0-4.8) k/uL Chloride (98-107) mmol/L Carbon Dioxide (22-30) mmol/L BUN (7-17) mg/dL Glucose (74-99) mg/dL POC Glucose (mg/dL) 508 H 501 H 370 H (70-110) mg/dL Hemoglobin A1c (<=6.0) % 06/20/23 06/20/23 06/21/23 Range/Units 22:28 23:51 01:02 Hgb (11.4-16.0) gm/dL MCV (80.0-100.0) fL MCH (25.0-35.0) pg MCHC (31.0-37.0) g/dL RDW (11.5-15.5) % Lymphocytes # (1.0-4.8) k/uL Chloride (98-107) mmol/L Carbon Dioxide (22-30) mmol/L BUN (7-17) mg/dL Glucose (74-99) mg/dL POC Glucose (mg/dL) 294 H 221 H 143 H (70-110) mg/dL Hemoglobin A1c (<=6.0) % 06/21/23 06/21/23 06/21/23 Range/Units 03:10 03:48 03:48 Hgb 10.8 L (11.4-16.0) gm/dL MCV 74.8 L (80.0-100.0) fL MCH 22.2 L (25.0-35.0) pg MCHC 29.7 L (31.0-37.0) g/dL RDW 20.6 H (11.5-15.5) % Lymphocytes # 0.4 L (1.0-4.8) k/uL Chloride 88 L (98-107) mmol/L Carbon Dioxide 51 H* (22-30) mmol/L BUN 34 H (7-17) mg/dL Glucose 132 H (74-99) mg/dL POC Glucose (mg/dL) 116 H (70-110) mg/dL Hemoglobin A1c (<=6.0) % 06/21/23 06/21/23 06/21/23 Range/Units 03:50 05:10 06:04 Hgb (11.4-16.0) gm/dL MCV (80.0-100.0) fL MCH (25.0-35.0) pg MCHC (31.0-37.0) g/dL RDW (11.5-15.5) % Lymphocytes # (1.0-4.8) k/uL Chloride (98-107) mmol/L Carbon Dioxide (22-30) mmol/L BUN (7-17) mg/dL Glucose (74-99) mg/dL POC Glucose (mg/dL) 151 H 180 H 218 H (70-110) mg/dL Hemoglobin A1c (<=6.0) % 06/21/23 Range/Units 06:48 Hgb (11.4-16.0) gm/dL MCV (80.0-100.0) fL MCH (25.0-35.0) pg MCHC (31.0-37.0) g/dL RDW (11.5-15.5) % Lymphocytes # (1.0-4.8) k/uL Chloride (98-107) mmol/L Carbon Dioxide (22-30) mmol/L BUN (7-17) mg/dL Glucose (74-99) mg/dL POC Glucose (mg/dL) 205 H (70-110) mg/dL Hemoglobin A1c (<=6.0) %
[2023-06-21] MEDS: IPRATROPIUM-ALBUTEROL 3 ML NEB INHALATION SCH ×4 (07:41→20:20)
[2023-06-21] MEDS: BUDESONIDE 1 MG/2 ML NEBU INHALATION SCH ×2 (07:41→20:19)
[2023-06-21] MEDS: FORMOTEROL FUMARATE 20 MCG/2 ML NEBU INHALATION SCH ×2 (07:41→20:19)
[2023-06-21 07:58] LABS: Glucose,Whole Blood 279 mg/dL (70-110)
[2023-06-21] MEDS: NICOTINE 21MG/24HR PATCH TRANSDERM SCH (08:14)
[2023-06-21] MEDS: PANTOPRAZOLE 40 MG/10 ML VIAL IVP SCH (08:14)
[2023-06-21] MEDS: FUROSEMIDE 10 MG/ML 4 ML VIAL IV SCH ×2 (08:14→20:29)
[2023-06-21] MEDS: allopurinoL 100 MG TAB PO SCH (08:15)
[2023-06-21] MEDS: METOPROLOL TARTRATE 25 MG TAB PO SCH ×2 (08:15→20:29)
[2023-06-21] MEDS: SPIRONOLACTONE 25 MG TAB PO SCH (08:15)
[2023-06-21] MEDS: levETIRAcetam IV 500 MG/5 ML VIAL IVP SCH ×2 (08:15→20:29)
[2023-06-21] MEDS: MAGNESIUM OXIDE 400 MG TAB PO SCH ×2 (08:15→20:29)
[2023-06-21] MEDS: FENOFIBRATE 160 MG TAB PO SCH (08:15)
[2023-06-21] MEDS: HEPARIN SODIUM,PORCINE 5,000 UNIT/ML 1 ML VIAL SQ SCH ×2 (08:16→20:30)
--- NOTE | 2023-06-21 08:16 | XR ---
EXAMINATION TYPE: XR chest 1V portable DATE OF EXAM: 06/21/2023 6:00 AM COMPARISON: Chest radiographs from 06/20/2023 TECHNIQUE: XR chest 1V portable Portable AP radiograph of the chest. CLINICAL INDICATION:Female, 62 years old with history of assess lungs; FINDINGS: Lungs/Pleura: No evidence of focal consolidation or pneumothorax. Blunting of the costophrenic angles is again present. Pulmonary vascularity: Mild pulmonary vascular congestion. Heart/mediastinum: Cardiomediastinal silhouette is prominent in size. Musculoskeletal: No acute osseous pathology. Fixation hardware in the spine with dextroscoliosis. IMPRESSION: Mild pulmonary vascular congestion with cardiomegaly and small bilateral pleural effusions.
[2023-06-21 09:03] LABS: Glucose,Whole Blood 303 mg/dL (70-110)
[2023-06-21 10:14] LABS: Glucose,Whole Blood 283 mg/dL (70-110)
[2023-06-21 11:05] LABS: Glucose,Whole Blood 235 mg/dL (70-110)
--- NOTE | 2023-06-21 11:17 | P.PN ---
Subjective Progress Note Date: 06/21/23 This is a 62-year-old female, familiar to our service, patient was seen actually a month ago during her last admission at [facility]. Patient is known to have history of chronic diastolic congestive heart failure, COPD, glaucoma, chronic low back pain, hypertension, degenerative joint disease, chronic hypoxic respiratory failure on home oxygen, chronic and ongoing tobacco dependence, type 2 diabetes, dyslipidemia, patient had multiple admissions in the past with altered mental status and hypoxemia as well as hypercapnia. Could not get much history from the patient. Apparently the patient was brought into the ER with complaints of cough and shortness of breath. Apparently upon arrival the patient was extremely agitated, and that 3 people to hold him down, and the patient was given 1 dose of Ativan, and when I evaluated the patient she was clearly obtunded, could not even arouse the patient with deep painful stimuli, hence I recommended placing the patient on BiPAP, ABG prior to placement on BiPAP showed a significant hypercapnia, pCO2 of 95 pH of 7.28 and pO2 was 76. This was on 50% FiO2. I recommended that the patient goes on BiPAP, and instead of admitting the patient to the medical floor, and recommended admitting the patient to the ICU setting. Chest x-ray showed evidence of pulmonary edema labs showed significantly elevated BNP level, relatively normal CBC with a hemoglobin of 10.8, WBC count 11.2, basic metabolic profile was relatively normal. Bicarb was noted to be 36 indicative of chronic hypercapnia and metabolic compensation. BNP level was 10,900, influenza RSV and COVID-19 screening were made Reevaluated today on 06/17/2023, patient remains in the ICU, on BiPAP 12//40%, patient is lethargic nonetheless she is arousable with deep painful stimuli. She is in normal sinus rhythm, blood pressure 109/64, does not seem to be in any distress. WBC count is 8.9 hemoglobin 10.8 electrolytes are relatively normal except bicarb is 41 renal profile is normal. CT brain is unremarkable from admission. Chest x-ray showed cardiomegaly and mild pulmonary vascular congestion, patient had elevated BNP level of 10,900. She also had elevated pro calcitonin of 0.201 admission. Still receiving diuretics and antibiotics since admission she is on Rocephin and Zithromax Reevaluated today on , patient remains in the ICU, on BiPAP, 12/5/40%. Patient is also on Precedex at 0.2 mcg/kg/hour, she received Haldol yesterday because she was getting quite agitated in spite of Precedex. This morning I was able to awaken the patient, seems to be pleasant and appropriate, hence we'll try the patient on a nasal cannula and set of BiPAP. WBC count is 5.4 hemoglobin 10.7 electrodes are normal renal profile is normal. Patient is relatively asymptomatic but according to the nurses she has intermittent episodes of confusion and agitation nonetheless I plan to keep her on Precedex today, and I plan to keep her in the ICU today. Reevaluated today on 06/19/2023, patient remains in ICU, remains on 12/5/40%, ABG today showed a pO2 of 82 pCO2 67 pH of 7.40. Patient remains on Precedex at 0.5 mcg/kg/h remains calm, and hopefully we can eventually transitioned the patient to nasal cannula, we continue to try on a daily basis to see if she could tolerate coming off BiPAP. The ABG this morning seems to be reassuring is that of than expected. MHC count 7.7 hemoglobin is 10.7. Basic metabolic profile and renal profile is normal bicarb is 36. Chest x-ray is showing improvement with pulmonary venous congestion, minimal right basilar atelectasis and small effusion is possible. The patient is seen today 06/20/2023 in follow-up in the intensive care unit. She remains on BiPAP 12/5 on 40% FiO2. She remains confused to time and place. casket liner at the bedside. Her Precedex infusion is currently off. Blood culture reveals no growth. White count 4.7. Hemoglobin 10.8. Platelets 245. Sodium 144. Potassium 3.4. Bicarb 37. BUN 31. Creatinine 0.58. Glucose 166. He is continued on DuoNeb inhalations, Pulmicort and Perforomist inhalations, IV Solu-Medrol. She also remains on IV diuretics. Currently in a -2.2 L balance. NicoDerm patch in place. She is continued on ceftriaxone. Heparin for DVT prophylaxis. Chest x-ray remains stable with some trace to small bilateral pleural effusions. The patient is seen today 06/21/2023 in follow-up in the intensive care unit. She is much more awake and alert today. Cooperative. casket liner remains at the bedside. She remains off Precedex. She is sitting up in bed. Maintaining O2 saturations in the 90s on 5 L/m per nasal cannula. She did utilize BiPAP last night 10/11 on 40% FiO2. She does have home oxygen. She is hyperglycemic and currently on insulin drip at 4.75 units per hour. Chest x-ray shows mild pulmonary vascular congestion with cardiomegaly and small bilateral effusions. Blood culture reveals no growth. Blood sugar 235. White count 9.0. Hemoglobin 10.8. Sodium 143. Potassium 3.5. Bicarb 51. BUN 34. Creatinine 0.66. Calcium 8.8. She remains on DuoNeb inhalations, Pulmicort and Perforomist inhalations, IV Solu-Medrol, IV diuretics. NicoDerm patch in place. She is currently in a -2.1 L balance. Objective - Vital Signs Vital signs: Vital Signs Temp 97.2 F L 06/21/23 08:00 Pulse 84 06/21/23 10:00 Resp 19 06/21/23 10:00 BP 144/91 06/21/23 10:00 Pulse Ox 89 L 06/21/23 10:00 FiO2 40 06/20/23 07:57 Intake & Output 06/20/23 06/21/23 06/21/23 18:59 06:59 18:59 Intake Total 875.675 644.300 379.628 Output Total 2120 1540 1000 Balance -1244.325 -895.700 -620.372 Weight 87 kg Intake: IV 110 60 120 0.9 KVO 20 Invasive Line 3 20 30 10 Invasive Line 4 20 30 10 cefTRIAXone 2 gm In 50 100 Sodium Chloride 0.9% 50 ml @ 100 mls/hr IVPB Q24HR [facility] Rx#:[id number] Intake, IV Titration 5.675 44.300 19.628 Amount Dexmedetomidine/0.9% NaCl 5.675 (Pmx) 400 mcg In Empty Bag 1 bag @ 0.2 MCG/KG/HR 4.54 mls/hr IV .Q22H2M [facility] Rx#:[id number] Insulin Regular 100 unit 44.300 19.628 In Sodium Chloride 0.9% 100 ml @ Titrate IV .Q0M [facility] Rx#:[id number] Oral 760 540 240 Output: Urine 2120 1540 1000 Other: Voiding Method Indwelling Catheter Indwelling Catheter Indwelling Catheter # Bowel Movements 5 - Exam GENERAL EXAM: Alert, less confused 62-year-old female on 5 L high flow nasal cannula alternating with BiPAP 12/5 and 40% FiO2, comfortable in no apparent distress. HEAD: Normocephalic. EYES: Normal reaction of pupils, equal size. NOSE: Clear with pink turbinates. THROAT: No erythema or exudates. NECK: No masses, no JVD. CHEST: No chest wall deformity. LUNGS: Equal air entry with faint crackles in the posterior bases. CVS: S1 and S2 normal with no audible murmur, regular rhythm. ABDOMEN: No hepatosplenomegaly, normal bowel sounds, no guarding or rigidity. SPINE: No scoliosis or deformity SKIN: No rashes CENTRAL NERVOUS SYSTEM: No focal deficits, tone is normal in all 4 extremities. EXTREMITIES: There is no peripheral edema. No clubbing, no cyanosis. Peripheral pulses are intact. - Labs CBC & Chem 7: 06/21/23 03:48 06/21/23 03:48 Labs: Abnormal Lab Results - Last 24 Hours (Table) 06/20/23 06/20/23 06/20/23 Range/Units 03:25 11:44 16:12 Hgb (11.4-16.0) gm/dL MCV (80.0-100.0) fL MCH (25.0-35.0) pg MCHC (31.0-37.0) g/dL RDW (11.5-15.5) % Lymphocytes # (1.0-4.8) k/uL Chloride (98-107) mmol/L Carbon Dioxide (22-30) mmol/L BUN (7-17) mg/dL Glucose (74-99) mg/dL POC Glucose (mg/dL) 249 H 420 H (70-110) mg/dL Hemoglobin A1c 8.2 H (<=6.0) % 06/20/23 06/20/23 06/20/23 Range/Units 18:39 20:02 21:34 Hgb (11.4-16.0) gm/dL MCV (80.0-100.0) fL MCH (25.0-35.0) pg MCHC (31.0-37.0) g/dL RDW (11.5-15.5) % Lymphocytes # (1.0-4.8) k/uL Chloride (98-107) mmol/L Carbon Dioxide (22-30) mmol/L BUN (7-17) mg/dL Glucose (74-99) mg/dL POC Glucose (mg/dL) 508 H 501 H 370 H (70-110) mg/dL Hemoglobin A1c (<=6.0) % 06/20/23 06/20/23 06/21/23 Range/Units 22:28 23:51 01:02 Hgb (11.4-16.0) gm/dL MCV (80.0-100.0) fL MCH (25.0-35.0) pg MCHC (31.0-37.0) g/dL RDW (11.5-15.5) % Lymphocytes # (1.0-4.8) k/uL Chloride (98-107) mmol/L Carbon Dioxide (22-30) mmol/L BUN (7-17) mg/dL Glucose (74-99) mg/dL POC Glucose (mg/dL) 294 H 221 H 143 H (70-110) mg/dL Hemoglobin A1c (<=6.0) % 06/21/23 06/21/23 06/21/23 Range/Units 03:10 03:48 03:48 Hgb 10.8 L (11.4-16.0) gm/dL MCV 74.8 L (80.0-100.0) fL MCH 22.2 L (25.0-35.0) pg MCHC 29.7 L (31.0-37.0) g/dL RDW 20.6 H (11.5-15.5) % Lymphocytes # 0.4 L (1.0-4.8) k/uL Chloride 88 L (98-107) mmol/L Carbon Dioxide 51 H* (22-30) mmol/L BUN 34 H (7-17) mg/dL Glucose 132 H (74-99) mg/dL POC Glucose (mg/dL) 116 H (70-110) mg/dL Hemoglobin A1c (<=6.0) % 06/21/23 06/21/23 06/21/23 Range/Units 03:50 05:10 06:04 Hgb (11.4-16.0) gm/dL MCV (80.0-100.0) fL MCH (25.0-35.0) pg MCHC (31.0-37.0) g/dL RDW (11.5-15.5) % Lymphocytes # (1.0-4.8) k/uL Chloride (98-107) mmol/L Carbon Dioxide (22-30) mmol/L BUN (7-17) mg/dL Glucose (74-99) mg/dL POC Glucose (mg/dL) 151 H 180 H 218 H (70-110) mg/dL Hemoglobin A1c (<=6.0) % 06/21/23 06/21/23 06/21/23 Range/Units 06:48 07:57 09:01 Hgb (11.4-16.0) gm/dL MCV (80.0-100.0) fL MCH (25.0-35.0) pg MCHC (31.0-37.0) g/dL RDW (11.5-15.5) % Lymphocytes # (1.0-4.8) k/uL Chloride (98-107) mmol/L Carbon Dioxide (22-30) mmol/L BUN (7-17) mg/dL Glucose (74-99) mg/dL POC Glucose (mg/dL) 205 H 279 H 303 H (70-110) mg/dL Hemoglobin A1c (<=6.0) % 06/21/23 06/21/23 Range/Units 10:11 11:03 Hgb (11.4-16.0) gm/dL MCV (80.0-100.0) fL MCH (25.0-35.0) pg MCHC (31.0-37.0) g/dL RDW (11.5-15.5) % Lymphocytes # (1.0-4.8) k/uL Chloride (98-107) mmol/L Carbon Dioxide (22-30) mmol/L BUN (7-17) mg/dL Glucose (74-99) mg/dL POC Glucose (mg/dL) 283 H 235 H (70-110) mg/dL Hemoglobin A1c (<=6.0) % Assessment and Plan Assessment: Acute on chronic hypoxic and hypercapnic respiratory failure secondary to diastolic congestive heart failure and chronic obstructive pulmonary disease exacerbations Acute on chronic diastolic congestive heart failure Cannot rule out underlying pneumonia especially with elevated pro calcitonin level and she does have diastolic congestive heart failure Severe underlying COPD with chronic hypercapnia Acute metabolic encephalopathy secondary mostly to hypercapnia Chronic ongoing tobacco dependence Type 2 diabetes without complications Dyslipidemia Benign essential hypertension Degenerative joint disease History of gout Plan: The patient was seen and evaluated Chest x-ray, labs and medications reviewed Currently on 5 L nasal cannula More awake and alert, cooperative today Remains off Precedex Continue Haldol as needed Continue diuretics, bronchodilators Titrate down the Solu-Medrol Titrate the insulin drip as needed NicoDerm patch is in place Educated regarding the importance of complete smoking cessation We will continue to follow I have personally seen and examined the patient, performed the documentation and the assessment and plan as written. Number of minutes spent on the visit: 10.
--- NOTE | 2023-06-21 11:49 | P.PN ---
Subjective This is a pleasant 62 years old female with multiple medical problems as below who was admitted for acute hypoxic respiratory and hypercapnic respiratory failure secondary to suspected pneumonia because of the elevated Pro-calcitonin With exacerbation of her chronic obstructive pulmonary disease and acute on chronic diastolic CHF. She is currently covered with ceftriaxone, IV Lasix 40 mg every 8 hours and IV Solu-Medrol 60 mg. Currently she is on BiPAP with a setting of 12/5 and FiO2 of 40%, we will try to get her off the BiPAP today. Cardoza in place with good urine output. She is alert awake oriented 1, she knows she is in [place], she is sleepy and lethargic. 06/21/2023 Patient is more awake and comfortable and breathing much easier today. She is less dependent on BiPAP and this morning she is only on nasal cannula at 3 L/m with oxygen saturation at 86-89 which is within the goals set by pulmonary service 85-90%. She denies chest pain and denies any other new complaints Vitals and labs look stable. She remains on ceftriaxone and IV Lasix was lowered to 40 mg twice daily instead of 3 times a day. On IV Solu-Medrol 60 mg lowered to 40 mg daily Patient was started on insulin drip yesterday for uncontrolled glucose as she was nothing by mouth, not taken her diabetes medication and on steroids. Today we will try to discontinue the insulin drip and start her on MRI 8 mg daily, metformin 1000 mg twice a day which are her home medication. Also increase her Levemir 8 units twice a day and 210 units twice a day. Active Medications Generic Name Dose Route Start Last Admin Trade Name Anand PRN Reason Stop Dose Admin Hydrocodone Bitart/Acetaminophen 1 each 06/20/23 11:03 06/21/23 06:30 Hydrocodone/Apap 5-325mg 1 Each Tab PO 1 each Q6HR PRN Administration Pain Albuterol/Ipratropium 3 ml 06/16/23 05:39 06/16/23 06:04 Ipratropium-Albuterol 3 Ml Neb INHALATION 3 ml RT-Q2H PRN Administration Shortness Of Breath Or Wheezing Albuterol/Ipratropium 3 ml 06/16/23 08:00 06/21/23 11:24 Ipratropium-Albuterol 3 Ml Neb INHALATION 3 ml RT-QID [facility] Administration Allopurinol 100 mg 06/17/23 09:00 06/21/23 08:15 Allopurinol 100 Mg Tab PO 100 mg DAILY [facility] Administration Atorvastatin Calcium 80 mg 06/16/23 21:00 06/20/23 20:21 Atorvastatin 80 Mg Tab PO 80 mg HS [facility] Administration Budesonide 1 mg 06/16/23 12:00 06/21/23 07:41 Budesonide 1 Mg/2 Ml Nebu INHALATION 1 mg RT-BID [facility] Administration Cyclobenzaprine HCl 10 mg 06/21/23 21:00 Cyclobenzaprine 10 Mg Tab PO HS [facility] Dextrose/Water 25 ml 06/16/23 10:49 Dextrose 50% Syringe 50 Ml IVP PER PROTOCOL PRN Hypoglycemia Protocol Dextrose/Water 50 ml 06/16/23 10:49 Dextrose 50% Syringe 50 Ml IVP PER PROTOCOL PRN Hypoglycemia Protocol Dextrose/Water 25 ml 06/20/23 18:45 Dextrose 50% Syringe 50 Ml IVP PER PROTOCOL PRN Hypoglycemia Protocol Dextrose/Water 50 ml 06/20/23 18:45 Dextrose 50% Syringe 50 Ml IVP PER PROTOCOL PRN Hypoglycemia Protocol Ergocalciferol 1,250 mcg 06/20/23 09:00 06/20/23 10:21 Ergocalciferol 1,250 Mcg (50,000 Iu) Capsule PO 1,250 mcg MO [facility] Administration Fenofibrate 160 mg 06/17/23 09:00 06/21/23 08:15 Fenofibrate 160 Mg Tab PO 160 mg DAILY [facility] Administration Formoterol Fumarate 20 mcg 06/16/23 12:00 06/21/23 07:41 Formoterol Fumarate 20 Mcg/2 Ml Nebu INHALATION 20 mcg RT-BID [facility] Administration Furosemide 40 mg 06/21/23 09:00 06/21/23 08:14 Furosemide 10 Mg/Ml 4 Ml Vial IV 40 mg Q12HR [facility] Administration Glimepiride 8 mg 06/21/23 11:45 Glimepiride 4 Mg Tab PO DAILY [facility] Haloperidol Lactate 4 mg 06/17/23 16:13 06/19/23 06:03 Haloperidol Lactate 5 Mg/Ml 1 Ml Vial IVP 4 mg Q4H PRN Administration Agitation or Acute Psychosis Heparin Sodium (Porcine) 5,000 unit 06/16/23 21:00 06/21/23 08:16 Heparin Sodium,Porcine 5,000 Unit/Ml 1 Ml Vial SQ 5,000 unit Q12HR [facility] Administration Ceftriaxone Sodium 2 gm/ 50 mls @ 100 mls/hr 06/17/23 09:00 06/21/23 08:15 Sodium Chloride IVPB 100 mls/hr Q24HR [facility] Administration Protocol Insulin Human Regular 100 unit 100 mls @ 0 mls/hr 06/20/23 20:30 06/21/23 11:11 / Sodium Chloride IV 10.75 units/hr .Q0M [facility] 10.75 mls/hr Titration Protocol Titrate Insulin Detemir 10 unit 06/21/23 11:45 Insulin Detemir (Levemir) 100 Unit/Ml Syr SQ BID [facility] Levetiracetam 1,500 mg 06/20/23 09:00 06/21/23 08:15 Levetiracetam Iv 500 Mg/5 Ml Vial IVP 1,500 mg Q12HR [facility] Administration Magnesium Oxide 400 mg 06/16/23 21:00 06/21/23 08:15 Magnesium Oxide 400 Mg Tab PO 400 mg BID [facility] Administration Methylprednisolone Sodium Succinate 40 mg 06/21/23 16:00 Methylprednisolone Sod Succi 40 Mg/Ml 1 Ml Vial IV Q8HR [facility] Metoprolol Tartrate 25 mg 06/21/23 09:00 06/21/23 08:15 Metoprolol Tartrate 25 Mg Tab PO 25 mg BID [facility] Administration Miscellaneous Information 1 each 06/16/23 12:21 Potassium Replacement Protocol 1 Each Mis MISCELLANE DAILY PRN Per Protocol Protocol Miscellaneous Information 1 each 06/17/23 07:15 Potassium Replacement Protocol 1 Each [facility] [place] DAILY PRN Per Protocol Protocol Miscellaneous Information 1 each 06/17/23 07:17 Magnesium Replacement Protocol 1 Each Mis MISCELLANE DAILY PRN Per Protocol Protocol Morphine Sulfate 1 mg 06/17/23 23:42 06/20/23 21:44 Morphine Sulfate 2 Mg/Ml Syringe IVP 1 mg Q4HR PRN Administration Pain Naloxone HCl 0.2 mg 06/16/23 05:39 Naloxone 0.4 Mg/Ml 1 Ml Vial IVP Q2M PRN Opioid Reversal Nicotine 1 patch 06/17/23 09:00 06/21/23 08:14 Nicotine 21mg/24hr Patch TRANSDERM 1 patch DAILY [facility] Administration Non-Formulary Medication 1,000 mg 06/21/23 11:45 Metformin Hcl [Glucophage] PO BID [facility] Pantoprazole Sodium 40 mg 06/17/23 09:00 06/21/23 08:14 Pantoprazole 40 Mg/10 Ml Vial IVP 40 mg DAILY [facility] Administration Spironolactone 25 mg 06/18/23 12:30 06/21/23 08:15 Spironolactone 25 Mg Tab PO 25 mg DAILY [facility] Administration Objective - Vital Signs Vital signs: Vital Signs Temp 97.2 F L 06/21/23 08:00 Pulse 90 06/21/23 11:35 Resp 19 06/21/23 10:00 BP 144/91 06/21/23 10:00 Pulse Ox 89 L 06/21/23 10:00 FiO2 40 06/20/23 07:57 Intake & Output 06/20/23 06/21/23 06/21/23 18:59 06:59 18:59 Intake Total 875.675 644.300 388.403 Output Total 2120 1540 1000 Balance -1244.325 -895.700 -611.597 Weight 87 kg Intake: IV 110 60 120 0.9 KVO 20 Invasive Line 3 20 30 10 Invasive Line 4 20 30 10 cefTRIAXone 2 gm In 50 100 Sodium Chloride 0.9% 50 ml @ 100 mls/hr IVPB Q24HR [facility] Rx#:[id number] Intake, IV Titration 5.675 44.300 28.403 Amount Dexmedetomidine/0.9% NaCl 5.675 (Pmx) 400 mcg In Empty Bag 1 bag @ 0.2 MCG/KG/HR 4.54 mls/hr IV .Q22H2M [facility] Rx#:[id number] Insulin Regular 100 unit 44.300 28.403 In Sodium Chloride 0.9% 100 ml @ Titrate IV .Q0M [facility] Rx#:[id number] Oral 760 540 240 Output: Urine 2120 1540 1000 Other: Voiding Method Indwelling Catheter Indwelling Catheter Indwelling Catheter # Bowel Movements 5 - Exam GENERAL: The patient is alert and oriented x3, not in any acute distress. Well developed, well nourished. HEENT: Pupils are round and equally reacting to light. EOMI. No scleral icterus. No conjunctival pallor. Normocephalic, atraumatic. No pharyngeal erythema. No thyromegaly. CARDIOVASCULAR: S1 and S2 present. No murmurs, rubs, or gallops. -PULMONARY: Chest is clear to auscultation, no wheezing , no crackles. Mildly tachypneic, no BiPAP ABDOMEN: Soft, nontender, nondistended, normoactive bowel sounds. No palpable organomegaly. MUSCULOSKELETAL: No joint swelling or deformity. EXTREMITIES: No cyanosis, clubbing, or pedal edema. NEUROLOGICAL: Gross neurological examination did not reveal any focal deficits. SKIN: No rashes. no petechiae. - Labs CBC & Chem 7: 06/21/23 03:48 06/21/23 03:48 Labs: Abnormal Lab Results - Last 24 Hours (Table) 06/20/23 06/20/23 06/20/23 Range/Units 03:25 11:44 16:12 Hgb (11.4-16.0) gm/dL MCV (80.0-100.0) fL MCH (25.0-35.0) pg MCHC (31.0-37.0) g/dL RDW (11.5-15.5) % Lymphocytes # (1.0-4.8) k/uL Chloride (98-107) mmol/L Carbon Dioxide (22-30) mmol/L BUN (7-17) mg/dL Glucose (74-99) mg/dL POC Glucose (mg/dL) 249 H 420 H (70-110) mg/dL Hemoglobin A1c 8.2 H (<=6.0) % 06/20/23 06/20/23 06/20/23 Range/Units 18:39 20:02 21:34 Hgb (11.4-16.0) gm/dL MCV (80.0-100.0) fL MCH (25.0-35.0) pg MCHC (31.0-37.0) g/dL RDW (11.5-15.5) % Lymphocytes # (1.0-4.8) k/uL Chloride (98-107) mmol/L Carbon Dioxide (22-30) mmol/L BUN (7-17) mg/dL Glucose (74-99) mg/dL POC Glucose (mg/dL) 508 H 501 H 370 H (70-110) mg/dL Hemoglobin A1c (<=6.0) % 06/20/23 06/20/23 06/21/23 Range/Units 22:28 23:51 01:02 Hgb (11.4-16.0) gm/dL MCV (80.0-100.0) fL MCH (25.0-35.0) pg MCHC (31.0-37.0) g/dL RDW (11.5-15.5) % Lymphocytes # (1.0-4.8) k/uL Chloride (98-107) mmol/L Carbon Dioxide (22-30) mmol/L BUN (7-17) mg/dL Glucose (74-99) mg/dL POC Glucose (mg/dL) 294 H 221 H 143 H (70-110) mg/dL Hemoglobin A1c (<=6.0) % 06/21/23 06/21/23 06/21/23 Range/Units 03:10 03:48 03:48 Hgb 10.8 L (11.4-16.0) gm/dL MCV 74.8 L (80.0-100.0) fL MCH 22.2 L (25.0-35.0) pg MCHC 29.7 L (31.0-37.0) g/dL RDW 20.6 H (11.5-15.5) % Lymphocytes # 0.4 L (1.0-4.8) k/uL Chloride 88 L (98-107) mmol/L Carbon Dioxide 51 H* (22-30) mmol/L BUN 34 H (7-17) mg/dL Glucose 132 H (74-99) mg/dL POC Glucose (mg/dL) 116 H (70-110) mg/dL Hemoglobin A1c (<=6.0) % 06/21/23 06/21/23 06/21/23 Range/Units 03:50 05:10 06:04 Hgb (11.4-16.0) gm/dL MCV (80.0-100.0) fL MCH (25.0-35.0) pg MCHC (31.0-37.0) g/dL RDW (11.5-15.5) % Lymphocytes # (1.0-4.8) k/uL Chloride (98-107) mmol/L Carbon Dioxide (22-30) mmol/L BUN (7-17) mg/dL Glucose (74-99) mg/dL POC Glucose (mg/dL) 151 H 180 H 218 H (70-110) mg/dL Hemoglobin A1c (<=6.0) % 06/21/23 06/21/23 06/21/23 Range/Units 06:48 07:57 09:01 Hgb (11.4-16.0) gm/dL MCV (80.0-100.0) fL MCH (25.0-35.0) pg MCHC (31.0-37.0) g/dL RDW (11.5-15.5) % Lymphocytes # (1.0-4.8) k/uL Chloride (98-107) mmol/L Carbon Dioxide (22-30) mmol/L BUN (7-17) mg/dL Glucose (74-99) mg/dL POC Glucose (mg/dL) 205 H 279 H 303 H (70-110) mg/dL Hemoglobin A1c (<=6.0) % 06/21/23 06/21/23 Range/Units 10:11 11:03 Hgb (11.4-16.0) gm/dL MCV (80.0-100.0) fL MCH (25.0-35.0) pg MCHC (31.0-37.0) g/dL RDW (11.5-15.5) % Lymphocytes # (1.0-4.8) k/uL Chloride (98-107) mmol/L Carbon Dioxide (22-30) mmol/L BUN (7-17) mg/dL Glucose (74-99) mg/dL POC Glucose (mg/dL) 283 H 235 H (70-110) mg/dL Hemoglobin A1c (<=6.0) % Assessment and Plan Assessment: Acute COPD exacerbation Acute on chronic diastolic CHF with a preserved ejection fraction Acute hypoxic hypercapnic respiratory failure and suspected infection with acute tracheal bronchitis versus early pneumonia given her elevated procalcitonin History of seizure Possible acute tracheobronchitis with elevated pro-calcitonin Plan: Continue with IV Solu-Medrol Continue with IV Lasix Continue with ceftriaxone Pulmonary and cardiology consult Labs and medication were reviewed.. Continue same treatment. Continue with symptomatic treatment. Resume home medication. Monitor labs and vitals. DVT and GI prophylaxis. Further recommendations as per clinical course of the patient DVT prophylaxis: Subcutaneous heparin GI Prophylaxis: Ppi PT/OT: Pending Prognosis is guarded
[2023-06-21 12:28] LABS: Glucose,Whole Blood 175 mg/dL (70-110)
[2023-06-21] MEDS: INSULIN REGULAR 100 UNIT in SODIUM CHLORIDE 0.9% 100 ML IV SCH (12:34)
[2023-06-21 13:23] LABS: Glucose,Whole Blood 228 mg/dL (70-110)
[2023-06-21] MEDS: GLIMEPIRIDE 4 MG TAB PO SCH (13:23)
[2023-06-21] MEDS: INSULIN DETEMIR (LEVEMIR) 100 UNIT/ML SYR SQ SCH ×2 (13:23→20:29)
[2023-06-21] MEDS: metFORMIN 500 MG TAB PO SCH ×2 (13:34→16:37)
[2023-06-21 16:09] LABS: Glucose,Whole Blood 225 mg/dL (70-110)
[2023-06-21] MEDS: methylPREDNISolone SOD SUCCI 40 MG/ML 1 ML VIAL IV SCH ×2 (17:25→23:53)
[2023-06-21 20:23] LABS: Glucose,Whole Blood 235 mg/dL (70-110)
[2023-06-21] MEDS: CYCLOBENZAPRINE 10 MG TAB PO SCH (20:29)
[2023-06-21] MEDS: MELATONIN 3 MG TABLET PO SCH (20:29)
[2023-06-21] MEDS: ATORVASTATIN 80 MG TAB PO SCH (20:29)
[2023-06-21] MEDS: INSULIN ASPART (NovoLOG) 100 UNIT/ML VIAL SQ SCH (20:30)
[2023-06-22] MEDS: HYDROcodone/APAP 5-325MG 1 EACH TAB PO PRN ×2 (03:55→20:18)
[2023-06-22 04:04] LABS: Anisocytosis Moderate; Basophils % (A) 0 %; Eosinophils % (A) 0 %; HCT 37.8 % (34.0-46.0); HGB 11.1 gm/dL (11.4-16.0); Hypochromasia Marked; Lymphocytes # (A) 0.5 k/uL (1.0-4.8); Lymphocytes % (A) 6 %; MCH 22.1 pg (25.0-35.0); MCHC 29.4 g/dL (31.0-37.0); MCV 75.1 fL (80.0-100.0); Mean Platelet Volume 9.1; Microcytosis Moderate; Monocytes # (A) 0.4 k/uL (0-1.0); Monocytes % (A) 5 %; Neutrophils # (A) 7.5 k/uL (1.3-7.7); Neutrophils % (A) 88 %; Platelet Count 240 k/uL (150-450); Poikilocytosis Moderate; RBC 5.03 m/uL (3.80-5.40); RDW 20.5 % (11.5-15.5); WBC 8.6 k/uL (3.8-10.6)
[2023-06-22 04:14] LABS: African American GFR (CKD) >90 (>60 ml/min/1.73 sqM); Blood Urea Nitrogen 32 mg/dL (7-17); Calcium 8.7 mg/dL (8.4-10.2); Chloride 86 mmol/L (98-107); Glucose 184 mg/dL (74-99); Magnesium 1.3 mg/dL (1.6-2.3); Non-African American GFR(CKD) >90 (>60 ml/min/1.73 sqM); Potassium 3.9 mmol/L (3.5-5.1); Sodium 139 mmol/L (137-145)
[2023-06-22 04:20] LABS: Anion Gap 6 mmol/L
[2023-06-22 04:23] LABS: Carbon Dioxide 47 mmol/L (22-30)
[2023-06-22] MEDS ORDERED: POTASSIUM CHLORIDE ER 20 MEQ TAB.ER PO SCH (06:00)
[2023-06-22 06:39] LABS: Glucose,Whole Blood 210 mg/dL (70-110)
[2023-06-22] MEDS: INSULIN DETEMIR (LEVEMIR) 100 UNIT/ML SYR SQ SCH ×2 (06:41→20:30)
[2023-06-22] MEDS: metFORMIN 500 MG TAB PO SCH ×2 (06:41→16:13)
[2023-06-22] MEDS: INSULIN ASPART (NovoLOG) 100 UNIT/ML VIAL SQ SCH ×4 (06:41→20:21)
[2023-06-22] MEDS: IPRATROPIUM-ALBUTEROL 3 ML NEB INHALATION SCH ×4 (08:35→21:24)
[2023-06-22] MEDS: BUDESONIDE 1 MG/2 ML NEBU INHALATION SCH ×2 (08:36→21:24)
[2023-06-22] MEDS: FORMOTEROL FUMARATE 20 MCG/2 ML NEBU INHALATION SCH ×2 (08:36→21:24)
[2023-06-22] MEDS: levETIRAcetam IV 500 MG/5 ML VIAL IVP SCH ×2 (09:00→20:21)
[2023-06-22] MEDS: MAGNESIUM SULFATE-D5W PMX 1 GM in DEXTROSE/WATER 1 100ML.BAG IVPB SCH ×2 (09:00→09:12)
[2023-06-22] MEDS: PANTOPRAZOLE 40 MG/10 ML VIAL IVP SCH (09:01)
[2023-06-22] MEDS: FENOFIBRATE 160 MG TAB PO SCH (09:01)
[2023-06-22] MEDS: METOPROLOL TARTRATE 25 MG TAB PO SCH ×2 (09:01→20:19)
[2023-06-22] MEDS: allopurinoL 100 MG TAB PO SCH (09:01)
[2023-06-22] MEDS: methylPREDNISolone SOD SUCCI 40 MG/ML 1 ML VIAL IV SCH ×2 (09:01→16:13)
[2023-06-22] MEDS: FUROSEMIDE 10 MG/ML 4 ML VIAL IV SCH ×2 (09:01→20:21)
[2023-06-22] MEDS: SPIRONOLACTONE 25 MG TAB PO SCH (09:01)
[2023-06-22] MEDS: GLIMEPIRIDE 4 MG TAB PO SCH (09:01)
[2023-06-22] MEDS: NICOTINE 21MG/24HR PATCH TRANSDERM SCH (09:01)
[2023-06-22] MEDS: HEPARIN SODIUM,PORCINE 5,000 UNIT/ML 1 ML VIAL SQ SCH ×2 (09:01→20:21)
[2023-06-22] MEDS: MAGNESIUM OXIDE 400 MG TAB PO SCH ×2 (09:12→20:19)
--- NOTE | 2023-06-22 10:28 | P.PN ---
Subjective Progress Note Date: 06/22/23 This is a 62-year-old female, familiar to our service, patient was seen actually a month ago during her last admission at [facility]. Patient is known to have history of chronic diastolic congestive heart failure, COPD, glaucoma, chronic low back pain, hypertension, degenerative joint disease, chronic hypoxic respiratory failure on home oxygen, chronic and ongoing tobacco dependence, type 2 diabetes, dyslipidemia, patient had multiple admissions in the past with altered mental status and hypoxemia as well as hypercapnia. Could not get much history from the patient. Apparently the patient was brought into the ER with complaints of cough and shortness of breath. Apparently upon arrival the patient was extremely agitated, and that 3 people to hold him down, and the patient was given 1 dose of Ativan, and when I evaluated the patient she was clearly obtunded, could not even arouse the patient with deep painful stimuli, hence I recommended placing the patient on BiPAP, ABG prior to placement on BiPAP showed a significant hypercapnia, pCO2 of 95 pH of 7.28 and pO2 was 76. This was on 50% FiO2. I recommended that the patient goes on BiPAP, and instead of admitting the patient to the medical floor, and recommended admitting the patient to the ICU setting. Chest x-ray showed evidence of pulmonary edema labs showed significantly elevated BNP level, relatively normal CBC with a hemoglobin of 10.8, WBC count 11.2, basic metabolic profile was relatively normal. Bicarb was noted to be 36 indicative of chronic hypercapnia and metabolic compensation. BNP level was 10,900, influenza RSV and COVID-19 screening were made Reevaluated today on 06/17/2023, patient remains in the ICU, on BiPAP 12//40%, patient is lethargic nonetheless she is arousable with deep painful stimuli. She is in normal sinus rhythm, blood pressure 109/64, does not seem to be in any distress. WBC count is 8.9 hemoglobin 10.8 electrolytes are relatively normal except bicarb is 41 renal profile is normal. CT brain is unremarkable from admission. Chest x-ray showed cardiomegaly and mild pulmonary vascular congestion, patient had elevated BNP level of 10,900. She also had elevated pro calcitonin of 0.201 admission. Still receiving diuretics and antibiotics since admission she is on Rocephin and Zithromax Reevaluated today on , patient remains in the ICU, on BiPAP, 12/5/40%. Patient is also on Precedex at 0.2 mcg/kg/hour, she received Haldol yesterday because she was getting quite agitated in spite of Precedex. This morning I was able to awaken the patient, seems to be pleasant and appropriate, hence we'll try the patient on a nasal cannula and set of BiPAP. WBC count is 5.4 hemoglobin 10.7 electrodes are normal renal profile is normal. Patient is relatively asymptomatic but according to the nurses she has intermittent episodes of confusion and agitation nonetheless I plan to keep her on Precedex today, and I plan to keep her in the ICU today. Reevaluated today on 06/19/2023, patient remains in ICU, remains on 12/5/40%, ABG today showed a pO2 of 82 pCO2 67 pH of 7.40. Patient remains on Precedex at 0.5 mcg/kg/h remains calm, and hopefully we can eventually transitioned the patient to nasal cannula, we continue to try on a daily basis to see if she could tolerate coming off BiPAP. The ABG this morning seems to be reassuring is that of than expected. MHC count 7.7 hemoglobin is 10.7. Basic metabolic profile and renal profile is normal bicarb is 36. Chest x-ray is showing improvement with pulmonary venous congestion, minimal right basilar atelectasis and small effusion is possible. The patient is seen today 06/20/2023 in follow-up in the intensive care unit. She remains on BiPAP 12/5 on 40% FiO2. She remains confused to time and place. racquet maker at the bedside. Her Precedex infusion is currently off. Blood culture reveals no growth. White count 4.7. Hemoglobin 10.8. Platelets 245. Sodium 144. Potassium 3.4. Bicarb 37. BUN 31. Creatinine 0.58. Glucose 166. He is continued on DuoNeb inhalations, Pulmicort and Perforomist inhalations, IV Solu-Medrol. She also remains on IV diuretics. Currently in a -2.2 L balance. NicoDerm patch in place. She is continued on ceftriaxone. Heparin for DVT prophylaxis. Chest x-ray remains stable with some trace to small bilateral pleural effusions. The patient is seen today 06/21/2023 in follow-up in the intensive care unit. She is much more awake and alert today. Cooperative. racquet maker remains at the bedside. She remains off Precedex. She is sitting up in bed. Maintaining O2 saturations in the 90s on 5 L/m per nasal cannula. She did utilize BiPAP last night 12/5 on 40% FiO2. She does have home oxygen. She is hyperglycemic and currently on insulin drip at 4.75 units per hour. Chest x-ray shows mild pulmonary vascular congestion with cardiomegaly and small bilateral effusions. Blood culture reveals no growth. Blood sugar 235. White count 9.0. Hemoglobin 10.8. Sodium 143. Potassium 3.5. Bicarb 51. BUN 34. Creatinine 0.66. Calcium 8.8. She remains on DuoNeb inhalations, Pulmicort and Perforomist inhalations, IV Solu-Medrol, IV diuretics. NicoDerm patch in place. She is currently in a -2.1 L balance. The patient is seen today 06/22/2023 in follow-up in the intensive care unit. She is currently sitting up in a chair at the bedside. Awake and alert and oriented. Cooperative. Maintaining O2 saturations in the 90s on 1.5 L/m per n keyana cannula. She did utilize BiPAP 12/5 and 40% FiO2 throughout the night. No IV fluids. She remains on DuoNeb inhalations, Pulmicort and Perforomist inhalations, Solu-Medrol. Remains on IV diuretics. Remains on ceftriaxone. NicoDerm patch in place. Chest x-ray showing improvement there is still some mild pulmonary vascular congestion with cardiomegaly and small bilateral pleural effusions. Blood culture revealed no growth. White count 8.6. Hemoglobin 11.1. Platelets 240. Sodium 139. Potassium 3.9. Bicarb 47. BUN 32. Creatinine 0.68. Glucose 184. Objective - Vital Signs Vital signs: Vital Signs Temp 97.9 F 06/21/23 16:00 Pulse 103 H 06/22/23 09:10 Resp 24 06/22/23 06:00 BP 157/92 06/22/23 06:00 Pulse Ox 91 L 06/22/23 08:36 FiO2 40 06/20/23 07:57 Intake & Output 06/21/23 06/22/23 06/22/23 18:59 06:59 18:59 Intake Total 958.296 20 270 Output Total 1870 1375 75 Balance -911.704 -1355 195 Weight 90 kg Intake: IV 170 20 20 Invasive Line 3 30 10 10 Invasive Line 4 40 10 10 cefTRIAXone 2 gm In 100 Sodium Chloride 0.9% 50 ml @ 100 mls/hr IVPB Q24HR [facility] Rx#:[id number] Intake, IV Titration 48.296 250 Amount Insulin Regular 100 unit 48.296 In Sodium Chloride 0.9% 100 ml @ Titrate IV .Q0M [facility] Rx#:[id number] Magnesium Sulfate-D5w Pmx 200 1 gm In Dextrose/Water 1 100ml.bag @ 100 mls/hr IVPB Q1H [facility] Rx#: [id number] cefTRIAXone 2 gm In 50 Sodium Chloride 0.9% 50 ml @ 100 mls/hr IVPB Q24HR [facility] Rx#:[id number] Oral 740 Output: Urine 1870 1375 75 Other: Voiding Method Indwelling Catheter Indwelling Catheter Indwelling Catheter - Exam GENERAL EXAM: Alert, oriented 62-year-old female up in a chair, on 1.5 L nasal cannula alternating with BiPAP 12/5 and 40% FiO2, comfortable in no apparent distress. HEAD: Normocephalic. EYES: Normal reaction of pupils, equal size. NOSE: Clear with pink turbinates. THROAT: No erythema or exudates. NECK: No masses, no JVD. CHEST: No chest wall deformity. LUNGS: Equal air entry with faint crackles in the posterior bases. CVS: S1 and S2 normal with no audible murmur, regular rhythm. ABDOMEN: No hepatosplenomegaly, normal bowel sounds, no guarding or rigidity. SPINE: No scoliosis or deformity SKIN: No rashes CENTRAL NERVOUS SYSTEM: No focal deficits, tone is normal in all 4 extremities. EXTREMITIES: There is no peripheral edema. No clubbing, no cyanosis. Peripheral pulses are intact. - Labs CBC & Chem 7: 06/22/23 03:45 06/22/23 03:45 Labs: Abnormal Lab Results - Last 24 Hours (Table) 06/21/23 06/21/23 06/21/23 Range/Units 11:03 12:26 13:22 Hgb (11.4-16.0) gm/dL MCV (80.0-100.0) fL MCH (25.0-35.0) pg MCHC (31.0-37.0) g/dL RDW (11.5-15.5) % Lymphocytes # (1.0-4.8) k/uL Chloride (98-107) mmol/L Carbon Dioxide (22-30) mmol/L BUN (7-17) mg/dL Glucose (74-99) mg/dL POC Glucose (mg/dL) 235 H 175 H 228 H (70-110) mg/dL Hemoglobin A1c (<=6.0) % Magnesium (1.6-2.3) mg/dL 06/21/23 06/21/23 06/22/23 Range/Units 16:07 20:21 03:45 Hgb (11.4-16.0) gm/dL MCV (80.0-100.0) fL MCH (25.0-35.0) pg MCHC (31.0-37.0) g/dL RDW (11.5-15.5) % Lymphocytes # (1.0-4.8) k/uL Chloride (98-107) mmol/L Carbon Dioxide (22-30) mmol/L BUN (7-17) mg/dL Glucose (74-99) mg/dL POC Glucose (mg/dL) 225 H 235 H (70-110) mg/dL Hemoglobin A1c 7.6 H (<=6.0) % Magnesium (1.6-2.3) mg/dL 06/22/23 06/22/23 06/22/23 Range/Units 03:45 03:45 06:37 Hgb 11.1 L (11.4-16.0) gm/dL MCV 75.1 L (80.0-100.0) fL MCH 22.1 L (25.0-35.0) pg MCHC 29.4 L (31.0-37.0) g/dL RDW 20.5 H (11.5-15.5) % Lymphocytes # 0.5 L (1.0-4.8) k/uL Chloride 86 L (98-107) mmol/L Carbon Dioxide 47 H* (22-30) mmol/L BUN 32 H (7-17) mg/dL Glucose 184 H (74-99) mg/dL POC Glucose (mg/dL) 210 H (70-110) mg/dL Hemoglobin A1c (<=6.0) % Magnesium 1.3 L (1.6-2.3) mg/dL Microbiology - Last 24 Hours (Table) 06/16/23 05:54 Blood Culture - Final Blood Assessment and Plan Assessment: Acute on chronic hypoxic and hypercapnic respiratory failure secondary to diastolic congestive heart failure and chronic obstructive pulmonary disease exacerbations Acute on chronic diastolic congestive heart failure Cannot rule out underlying pneumonia especially with elevated pro calcitonin level continued on ceftriaxone Severe underlying COPD with chronic hypercapnia Acute metabolic encephalopathy secondary mostly to hypercapnia Chronic ongoing tobacco dependence Type 2 diabetes without complications Dyslipidemia Benign essential hypertension Degenerative joint disease History of gout Plan: The patient was seen and evaluated Chest x-ray, labs and medications reviewed Currently on 1.5 L nasal cannula More awake and alert, cooperative today Continue diuretics, bronchodilators and steroids NicoDerm patch is in place Transfer out of the ICU today We will continue to follow I have personally seen and examined the patient, performed the documentation and the assessment and plan as written. Number of minutes spent on the visit: 10.
--- NOTE | 2023-06-22 10:50 | XR ---
EXAMINATION TYPE: XR chest 2V DATE OF EXAM: 06/22/2023 COMPARISON: 06/21/2023 INDICATION: Pleural effusions tip seen TECHNIQUE: Frontal and lateral views of the chest are obtained. FINDINGS: The heart size is normal. The pulmonary vasculature is normal. Small right pleural effusion is present. Some atelectasis may be at the right diaphragm as well. Cons ider pneumonia.. IMPRESSION: 1. Small to Moderate right pleural effusion with some adjacent infiltrate. Correlate for atelectasis and pneumonia.
[2023-06-22 10:59] LABS: Glucose,Whole Blood 157 mg/dL (70-110)
--- NOTE | 2023-06-22 11:21 | P.PN ---
Subjective This is a pleasant 62 years old female with multiple medical problems as below who was admitted for acute hypoxic respiratory and hypercapnic respiratory failure secondary to suspected pneumonia because of the elevated Pro-calcitonin With exacerbation of her chronic obstructive pulmonary disease and acute on chronic diastolic CHF. She is currently covered with ceftriaxone, IV Lasix 40 mg every 8 hours and IV Solu-Medrol 60 mg. Currently she is on BiPAP with a setting of 12/5 and FiO2 of 40%, we will try to get her off the BiPAP today. Cardoza in place with good urine output. She is alert awake oriented 1, she knows she is in [place], she is sleepy and lethargic. 06/21/2023 Patient is more awake and comfortable and breathing much easier today. She is less dependent on BiPAP and this morning she is only on nasal cannula at 3 L/m with oxygen saturation at 86-89 which is within the goals set by pulmonary service 85-90%. She denies chest pain and denies any other new complaints Vitals and labs look stable. She remains on ceftriaxone and IV Lasix was lowered to 40 mg twice daily instead of 3 times a day. On IV Solu-Medrol 60 mg lowered to 40 mg daily Patient was started on insulin drip yesterday for uncontrolled glucose as she was nothing by mouth, not taken her diabetes medication and on steroids. Today we will try to discontinue the insulin drip and start her on MRI 8 mg daily, metformin 1000 mg twice a day which are her home medication. Also increase her Levemir 8 units twice a day and 210 units twice a day. 06/22/2023 Patient today keep improving and feels better, sitting in chair fully awake, get a breathing treatment. Her respiratory symptoms improving and oxygen requirement down to 1.5 L/m Patient remains on ceftriaxone, Lasix, IV Solu-Medrol 40 mg Patient is planned to be transferred to the general medical floor today Objective - Vital Signs Vital signs: Vital Signs Temp 97.9 F 06/21/23 16:00 Pulse 103 H 06/22/23 09:10 Resp 24 06/22/23 06:00 BP 157/92 06/22/23 06:00 Pulse Ox 91 L 06/22/23 08:36 FiO2 40 06/20/23 07:57 Intake & Output 06/21/23 06/22/23 06/22/23 18:59 06:59 18:59 Intake Total 958.296 20 270 Output Total 1870 1375 75 Balance -911.704 -1355 195 Weight 90 kg Intake: IV 170 20 20 Invasive Line 3 30 10 10 Invasive Line 4 40 10 10 cefTRIAXone 2 gm In 100 Sodium Chloride 0.9% 50 ml @ 100 mls/hr IVPB Q24HR [facility] Rx#:[id number] Intake, IV Titration 48.296 250 Amount Insulin Regular 100 unit 48.296 In Sodium Chloride 0.9% 100 ml @ Titrate IV .Q0M [facility] Rx#:[id number] Magnesium Sulfate-D5w Pmx 200 1 gm In Dextrose/Water 1 100ml.bag @ 100 mls/hr IVPB Q1H [facility] Rx#: [id number] cefTRIAXone 2 gm In 50 Sodium Chloride 0.9% 50 ml @ 100 mls/hr IVPB Q24HR [facility] Rx#:[id number] Oral 740 Output: Urine 1870 1375 75 Other: Voiding Method Indwelling Catheter Indwelling Catheter Indwelling Catheter - Exam GENERAL: The patient is alert and oriented x3, not in any acute distress. Well developed, well nourished. HEENT: Pupils are round and equally reacting to light. EOMI. No scleral icterus. No conjunctival pallor. Normocephalic, atraumatic. No pharyngeal erythema. No thyromegaly. CARDIOVASCULAR: S1 and S2 present. No murmurs, rubs, or gallops. -PULMONARY: Chest is clear to auscultation, no wheezing , no crackles. Mildly t achypneic, no BiPAP ABDOMEN: Soft, nontender, nondistended, normoactive bowel sounds. No palpable o rganomegaly. MUSCULOSKELETAL: No joint swelling or deformity. EXTREMITIES: No cyanosis, clubbing, or pedal edema. NEUROLOGICAL: Gross neurological examination did not reveal any focal deficits. SKIN: No rashes. no petechiae. - Labs CBC & Chem 7: 06/22/23 03:45 06/22/23 03:45 Labs: Abnormal Lab Results - Last 24 Hours (Table) 06/21/23 06/21/23 06/21/23 Range/Units 12:26 13:22 16:07 Hgb (11.4-16.0) gm/dL MCV (80.0-100.0) fL MCH (25.0-35.0) pg MCHC (31.0-37.0) g/dL RDW (11.5-15.5) % Lymphocytes # (1.0-4.8) k/uL Chloride (98-107) mmol/L Carbon Dioxide (22-30) mmol/L BUN (7-17) mg/dL Glucose (74-99) mg/dL POC Glucose (mg/dL) 175 H 228 H 225 H (70-110) mg/dL Hemoglobin A1c (<=6.0) % Magnesium (1.6-2.3) mg/dL 06/21/23 06/22/23 06/22/23 Range/Units 20:21 03:45 03:45 Hgb 11.1 L (11.4-16.0) gm/dL MCV 75.1 L (80.0-100.0) fL MCH 22.1 L (25.0-35.0) pg MCHC 29.4 L (31.0-37.0) g/dL RDW 20.5 H (11.5-15.5) % Lymphocytes # 0.5 L (1.0-4.8) k/uL Chloride (98-107) mmol/L Carbon Dioxide (22-30) mmol/L BUN (7-17) mg/dL Glucose (74-99) mg/dL POC Glucose (mg/dL) 235 H (70-110) mg/dL Hemoglobin A1c 7.6 H (<=6.0) % Magnesium (1.6-2.3) mg/dL 06/22/23 06/22/23 06/22/23 Range/Units 03:45 06:37 10:57 Hgb (11.4-16.0) gm/dL MCV (80.0-100.0) fL MCH (25.0-35.0) pg MCHC (31.0-37.0) g/dL RDW (11.5-15.5) % Lymphocytes # (1.0-4.8) k/uL Chloride 86 L (98-107) mmol/L Carbon Dioxide 47 H* (22-30) mmol/L BUN 32 H (7-17) mg/dL Glucose 184 H (74-99) mg/dL POC Glucose (mg/dL) 210 H 157 H (70-110) mg/dL Hemoglobin A1c (<=6.0) % Magnesium 1.3 L (1.6-2.3) mg/dL Microbiology - Last 24 Hours (Table) 06/16/23 05:54 Blood Culture - Final Blood Assessment and Plan Assessment: Acute COPD exacerbation Acute on chronic diastolic CHF with a preserved ejection fraction Acute hypoxic hypercapnic respiratory failure and suspected infection with acute tracheal bronchitis versus early pneumonia given her elevated procalcitonin History of seizure Possible acute tracheobronchitis with elevated pro-calcitonin Plan: Continue with IV Solu-Medrol Continue with IV Lasix Continue with ceftriaxone Pulmonary and cardiology consult Labs and medication were reviewed.. Continue same treatment. Continue with symptomatic treatment. Resume home medication. Monitor labs and vitals. DVT and GI prophylaxis. Further recommendations as per clinical course of the patient DVT prophylaxis: Subcutaneous heparin GI Prophylaxis: Ppi PT/OT: Pending Prognosis is guarded
--- NOTE | 2023-06-22 13:52 | P.PN ---
Subjective Progress Note Date: 06/22/23 Principal diagnosis: Heart failure The patient is a 62-year-old female patient with heart failure with preserved ejection fraction as well as chronic obstructive pulmonary disease as well as obesity as well as multiple comorbid conditions including diabetes and hypertension and dyslipidemia was admitted to the hospital with acute hypoxic respiratory failure secondary to COPD exacerbation and CHF exacerbation. June 202022 The patient was seen and evaluated this morning. She is stable hemodynamically and not on any vasopressors patient continues to be hypoxic on BiPAP. She continues to diurese very well. Currently she is on Lasix IV. From the cardiovascular standpoint overview, I would suggest continue the current medical regimen including the current dose of Lasix IV. Her kidney function remains stable. Her GFR remains above 90. The chest x-ray continues to show evidence of volume overload with bilateral pleural effusion. June 212022 The patient was seen and evaluated this morning. She seems to be better overall. Hemodynamically she remained stable and not on any vasopressors. She continues to be on oxygen. Her CO2 has been in the the chest x-ray showed bilateral pleural effusions slightly worse on the right than the left. I am going to decrease the dose of Lasix given the increasing CO2 as well as she is not in overt volume overload. Down the line would switch her to oral Lasix. Beside that because she is tachycardic results of beta lg. June 222022 The patient was seen and evaluated. She remains stable. The dose of Lasix has decreased yesterday. Kidney function remains stable. The patient be transferred out of the intensive care unit. No symptoms of chest pain or chest discomfort. The examination is remarkable for diminished breathing sounds bilaterally. Assessment Acute hypoxic respiratory failure COPD exacerbation Heart failure exacerbation secondary to heart failure with a preserved ejection fraction Metabolic encephalopathy Multiple comorbid conditions including diabetes and hypertension and d yslipidemia Plan Continue the current medical regimen Continue monitor the kidney function and electrolytes Follow-up with the patient Objective - Vital Signs Vital signs: Vital Signs Temp 97.9 F 06/21/23 16:00 Pulse 90 06/22/23 11:58 Resp 24 06/22/23 06:00 BP 157/92 06/22/23 06:00 Pulse Ox 91 L 06/22/23 08:36 FiO2 40 06/20/23 07:57 Intake & Output 08/15/23 08/16/23 08/16/23 18:59 06:59 18:59 Intake Total 958.296 20 270 Output Total 1870 1375 75 Balance -911.704 -1355 195 Weight 90 kg Intake: IV 170 20 20 Invasive Line 3 30 10 10 Invasive Line 4 40 10 10 cefTRIAXone 2 gm In 100 Sodium Chloride 0.9% 50 ml @ 100 mls/hr IVPB Q24HR [facility] Rx#:[id number] Intake, IV Titration 48.296 250 Amount Insulin Regular 100 unit 48.296 In Sodium Chloride 0.9% 100 ml @ Titrate IV .Q0M [facility] Rx#:[id number] Magnesium Sulfate-D5w Pmx 200 1 gm In Dextrose/Water 1 100ml.bag @ 100 mls/hr IVPB Q1H [facility] Rx#: [id number] cefTRIAXone 2 gm In 50 Sodium Chloride 0.9% 50 ml @ 100 mls/hr IVPB Q24HR [facility] Rx#:[id number] Oral 740 Output: Urine 1870 1375 75 Other: Voiding Method Indwelling Catheter Indwelling Catheter Indwelling Catheter # Bowel Movements 3 - Labs CBC & Chem 7: 06/22/23 03:45 06/22/23 03:45 Labs: Abnormal Lab Results - Last 24 Hours (Table) 06/21/23 06/21/23 06/22/23 Range/Units 16:07 20:21 03:45 Hgb (11.4-16.0) gm/dL MCV (80.0-100.0) fL MCH (25.0-35.0) pg MCHC (31.0-37.0) g/dL RDW (11.5-15.5) % Lymphocytes # (1.0-4.8) k/uL Chloride (98-107) mmol/L Carbon Dioxide (22-30) mmol/L BUN (7-17) mg/dL Glucose (74-99) mg/dL POC Glucose (mg/dL) 225 H 235 H (70-110) mg/dL Hemoglobin A1c 7.6 H (<=6.0) % Magnesium (1.6-2.3) mg/dL 06/22/23 06/22/23 06/22/23 Range/Units 03:45 03:45 06:37 Hgb 11.1 L (11.4-16.0) gm/dL MCV 75.1 L (80.0-100.0) fL MCH 22.1 L (25.0-35.0) pg MCHC 29.4 L (31.0-37.0) g/dL RDW 20.5 H (11.5-15.5) % Lymphocytes # 0.5 L (1.0-4.8) k/uL Chloride 86 L (98-107) mmol/L Carbon Dioxide 47 H* (22-30) mmol/L BUN 32 H (7-17) mg/dL Glucose 184 H (74-99) mg/dL POC Glucose (mg/dL) 210 H (70-110) mg/dL Hemoglobin A1c (<=6.0) % Magnesium 1.3 L (1.6-2.3) mg/dL 06/22/23 Range/Units 10:57 Hgb (11.4-16.0) gm/dL MCV (80.0-100.0) fL MCH (25.0-35.0) pg MCHC (31.0-37.0) g/dL RDW (11.5-15.5) % Lymphocytes # (1.0-4.8) k/uL Chloride (98-107) mmol/L Carbon Dioxide (22-30) mmol/L BUN (7-17) mg/dL Glucose (74-99) mg/dL POC Glucose (mg/dL) 157 H (70-110) mg/dL Hemoglobin A1c (<=6.0) % Magnesium (1.6-2.3) mg/dL Microbiology - Last 24 Hours (Table) 06/16/23 05:54 Blood Culture - Final Blood
[2023-06-22 14:07] VITALS: BMI 36.3
[2023-06-22 16:12] LABS: Glucose,Whole Blood 170 mg/dL (70-110)
[2023-06-22 20:03] LABS: Glucose,Whole Blood 298 mg/dL (70-110)
[2023-06-22] MEDS: ATORVASTATIN 80 MG TAB PO SCH (20:18)
[2023-06-22] MEDS: CYCLOBENZAPRINE 10 MG TAB PO SCH (20:19)
[2023-06-22] MEDS: MELATONIN 3 MG TABLET PO SCH (20:19)
[2023-06-23] MEDS: methylPREDNISolone SOD SUCCI 40 MG/ML 1 ML VIAL IV SCH ×3 (00:42→15:58)
[2023-06-23 04:21] LABS: African American GFR (CKD) >90 (>60 ml/min/1.73 sqM); Blood Urea Nitrogen 38 mg/dL (7-17); Calcium 8.9 mg/dL (8.4-10.2); Chloride 87 mmol/L (98-107); Glucose 243 mg/dL (74-99); Magnesium 1.5 mg/dL (1.6-2.3); Non-African American GFR(CKD) >90 (>60 ml/min/1.73 sqM); Potassium 4.1 mmol/L (3.5-5.1); Sodium 135 mmol/L (137-145)
[2023-06-23 04:28] LABS: Anion Gap 6 mmol/L; Carbon Dioxide 42 mmol/L (22-30)
[2023-06-23] MEDS: MAGNESIUM SULFATE-D5W PMX 1 GM in DEXTROSE/WATER 1 100ML.BAG IVPB SCH ×2 (04:59→06:00)
[2023-06-23 06:51] LABS: Glucose,Whole Blood 354 mg/dL (70-110)
[2023-06-23] MEDS: INSULIN DETEMIR (LEVEMIR) 100 UNIT/ML SYR SQ SCH ×2 (06:55→20:33)
[2023-06-23] MEDS: INSULIN ASPART (NovoLOG) 100 UNIT/ML VIAL SQ SCH ×4 (06:55→20:32)
[2023-06-23] MEDS: metFORMIN 500 MG TAB PO SCH ×2 (06:55→17:47)
[2023-06-23] MEDS: FORMOTEROL FUMARATE 20 MCG/2 ML NEBU INHALATION SCH ×2 (07:58→21:30)
[2023-06-23] MEDS: IPRATROPIUM-ALBUTEROL 3 ML NEB INHALATION SCH ×4 (07:58→21:30)
[2023-06-23] MEDS: BUDESONIDE 1 MG/2 ML NEBU INHALATION SCH ×2 (07:58→21:30)
--- NOTE | 2023-06-23 08:17 | P.PN ---
Subjective Progress Note Date: 06/23/23 Principal diagnosis: Heart failure The patient is a 62-year-old female patient with heart failure with preserved ejection fraction as well as chronic obstructive pulmonary disease as well as obesity as well as multiple comorbid conditions including diabetes and hypertension and dyslipidemia was admitted to the hospital with acute hypoxic respiratory failure secondary to COPD exacerbation and CHF exacerbation. June 202022 The patient was seen and evaluated this morning. She is stable hemodynamically and not on any vasopressors patient continues to be hypoxic on BiPAP. She continues to diurese very well. Currently she is on Lasix IV. From the cardiovascular standpoint overview, I would suggest continue the current medical regimen including the current dose of Lasix IV. Her kidney function remains stable. Her GFR remains above 90. The chest x-ray continues to show evidence of volume overload with bilateral pleural effusion. June 212022 The patient was seen and evaluated this morning. She seems to be better overall. Hemodynamically she remained stable and not on any vasopressors. She continues to be on oxygen. Her CO2 has been in the the chest x-ray showed bilateral pleural effusions slightly worse on the right than the left. I am going to decrease the dose of Lasix given the increasing CO2 as well as she is not in overt volume overload. Down the line would switch her to oral Lasix. Beside that because she is tachycardic results of beta lg. June 222022 The patient was seen and evaluated. She remains stable. The dose of Lasix has decreased yesterday. Kidney function remains stable. The patient be transferred out of the intensive care unit. No symptoms of chest pain or chest discomfort. June 232022 The patient was seen and evaluated this morning. She still symptomatic in term of shortness of breath. She still hypoxic as well. She continues to be on Lasix IV at 40 twice a day and the kidney function remains stable. The chest x- ray continues to show findings consistent with heart failure as well. From the cardiac standpoint of view I would continue the current medical regimen and follow-up with the patient. The patient can be transferred out of the intensive care unit. The examination is remarkable for diminished breathing sounds bilaterally. Assessment Acute hypoxic respiratory failure COPD exacerbation Heart failure exacerbation secondary to heart failure with a preserved ejection fraction Metabolic encephalopathy Multiple comorbid conditions including diabetes and hypertension and dyslipidemia Plan Continue the current medical regimen Continue monitor the kidney function and electrolytes Follow-up with the patient The patient can be transferred out of the ICU Objective - Vital Signs Vital signs: Vital Signs Temp 98 F 06/23/23 02:00 Pulse 84 06/23/23 08:11 Resp 14 06/23/23 02:00 BP 131/85 06/23/23 02:00 Pulse Ox 90 L 06/23/23 08:02 FiO2 40 06/20/23 07:57 Intake & Output 06/22/23 06/23/23 06/23/23 18:59 06:59 18:59 Intake Total 270 20 Output Total 1275 725 Balance -1005 -705 Weight 90 kg 90.3 kg Intake: IV 20 20 Invasive Line 3 10 10 Invasive Line 4 10 10 Intake, IV Titration 250 Amount Magnesium Sulfate-D5w Pmx 200 1 gm In Dextrose/Water 1 100ml.bag @ 100 mls/hr IVPB Q1H [facility] Rx#: [id number] cefTRIAXone 2 gm In 50 Sodium Chloride 0.9% 50 ml @ 100 mls/hr IVPB Q24HR [facility] Rx#:[id number] Output: Urine 1275 725 Other: Voiding Method Indwelling Catheter Toilet # Voids 3 # Bowel Movements 5 1 - Labs CBC & Chem 7: 06/22/23 03:45 06/23/23 03:52 Labs: Abnormal Lab Results - Last 24 Hours (Table) 06/22/23 06/22/23 06/22/23 Range/Units 03:45 10:57 16:10 Sodium (137-145) mmol/L Chloride (98-107) mmol/L Carbon Dioxide (22-30) mmol/L BUN (7-17) mg/dL Glucose (74-99) mg/dL POC Glucose (mg/dL) 157 H 170 H (70-110) mg/dL Hemoglobin A1c 7.6 H (<=6.0) % Magnesium (1.6-2.3) mg/dL 06/22/23 06/23/23 06/23/23 Range/Units 20:01 03:52 06:50 Sodium 135 L (137-145) mmol/L Chloride 87 L (98-107) mmol/L Carbon Dioxide 42 H* (22-30) mmol/L BUN 38 H (7-17) mg/dL Glucose 243 H (74-99) mg/dL POC Glucose (mg/dL) 298 H 354 H (70-110) mg/dL Hemoglobin A1c (<=6.0) % Magnesium 1.5 L (1.6-2.3) mg/dL
[2023-06-23] MEDS: NICOTINE 21MG/24HR PATCH TRANSDERM SCH (09:26)
[2023-06-23] MEDS: GLIMEPIRIDE 4 MG TAB PO SCH (09:27)
[2023-06-23] MEDS: FENOFIBRATE 160 MG TAB PO SCH (09:27)
[2023-06-23] MEDS: MAGNESIUM OXIDE 400 MG TAB PO SCH ×2 (09:27→20:50)
[2023-06-23] MEDS: PANTOPRAZOLE 40 MG/10 ML VIAL IVP SCH (09:27)
[2023-06-23] MEDS: allopurinoL 100 MG TAB PO SCH (09:27)
[2023-06-23] MEDS: METOPROLOL TARTRATE 25 MG TAB PO SCH ×2 (09:28→20:50)
[2023-06-23] MEDS: HEPARIN SODIUM,PORCINE 5,000 UNIT/ML 1 ML VIAL SQ SCH ×2 (09:28→20:33)
[2023-06-23] MEDS: SPIRONOLACTONE 25 MG TAB PO SCH (09:28)
[2023-06-23] MEDS: FUROSEMIDE 10 MG/ML 4 ML VIAL IV SCH ×2 (09:31→20:33)
[2023-06-23] MEDS: levETIRAcetam IV 500 MG/5 ML VIAL IVP SCH ×2 (09:32→20:42)
--- NOTE | 2023-06-23 10:23 | P.PN ---
Subjective Progress Note Date: 06/23/23 This is a 62-year-old female, familiar to our service, patient was seen actually a month ago during her last admission at [facility]. Patient is known to have history of chronic diastolic congestive heart failure, COPD, glaucoma, chronic low back pain, hypertension, degenerative joint disease, chronic hypoxic respiratory failure on home oxygen, chronic and ongoing tobacco dependence, type 2 diabetes, dyslipidemia, patient had multiple admissions in the past with altered mental status and hypoxemia as well as hypercapnia. Could not get much history from the patient. Apparently the patient was brought into the ER with complaints of cough and shortness of breath. Apparently upon arrival the patient was extremely agitated, and that 3 people to hold him down, and the patient was given 1 dose of Ativan, and when I evaluated the patient she was clearly obtunded, could not even arouse the patient with deep painful stimuli, hence I recommended placing the patient on BiPAP, ABG prior to placement on BiPAP showed a significant hypercapnia, pCO2 of 95 pH of 7.28 and pO2 was 76. This was on 50% FiO2. I recommended that the patient goes on BiPAP, and instead of admitting the patient to the medical floor, and recommended admitting the patient to the ICU setting. Chest x-ray showed evidence of pulmonary edema labs showed significantly elevated BNP level, relatively normal CBC with a hemoglobin of 10.8, WBC count 11.2, basic metabolic profile was relatively normal. Bicarb was noted to be 36 indicative of chronic hypercapnia and metabolic compensation. BNP level was 10,900, influenza RSV and COVID-19 screening were made Reevaluated today on 06/17/2023, patient remains in the ICU, on BiPAP 12//40%, patient is lethargic nonetheless she is arousable with deep painful stimuli. She is in normal sinus rhythm, blood pressure 109/64, does not seem to be in any distress. WBC count is 8.9 hemoglobin 10.8 electrolytes are relatively normal except bicarb is 41 renal profile is normal. CT brain is unremarkable from admission. Chest x-ray showed cardiomegaly and mild pulmonary vascular congestion, patient had elevated BNP level of 10,900. She also had elevated pro calcitonin of 0.201 admission. Still receiving diuretics and antibiotics since admission she is on Rocephin and Zithromax Reevaluated today on , patient remains in the ICU, on BiPAP, 12/5/40%. Patient is also on Precedex at 0.2 mcg/kg/hour, she received Haldol yesterday because she was getting quite agitated in spite of Precedex. This morning I was able to awaken the patient, seems to be pleasant and appropriate, hence we'll try the patient on a nasal cannula and set of BiPAP. WBC count is 5.4 hemoglobin 10.7 electrodes are normal renal profile is normal. Patient is relatively asymptomatic but according to the nurses she has intermittent episodes of confusion and agitation nonetheless I plan to keep her on Precedex today, and I plan to keep her in the ICU today. Reevaluated today on 06/19/2023, patient remains in ICU, remains on 12/5/40%, ABG today showed a pO2 of 82 pCO2 67 pH of 7.40. Patient remains on Precedex at 0.5 mcg/kg/h remains calm, and hopefully we can eventually transitioned the patient to nasal cannula, we continue to try on a daily basis to see if she could tolerate coming off BiPAP. The ABG this morning seems to be reassuring is that of than expected. MHC count 7.7 hemoglobin is 10.7. Basic metabolic profile and renal profile is normal bicarb is 36. Chest x-ray is showing improvement with pulmonary venous congestion, minimal right basilar atelectasis and small effusion is possible. The patient is seen today 06/20/2023 in follow-up in the intensive care unit. She remains on BiPAP 12/5 on 40% FiO2. She remains confused to time and place. house sitter at the bedside. Her Precedex infusion is currently off. Blood culture reveals no growth. White count 4.7. Hemoglobin 10.8. Platelets 245. Sodium 144. Potassium 3.4. Bicarb 37. BUN 31. Creatinine 0.58. Glucose 166. He is continued on DuoNeb inhalations, Pulmicort and Perforomist inhalations, IV Solu-Medrol. She also remains on IV diuretics. Currently in a -2.2 L balance. NicoDerm patch in place. She is continued on ceftriaxone. Heparin for DVT prophylaxis. Chest x-ray remains stable with some trace to small bilateral pleural effusions. The patient is seen today 06/21/2023 in follow-up in the intensive care unit. She is much more awake and alert today. Cooperative. house sitter remains at the bedside. She remains off Precedex. She is sitting up in bed. Maintaining O2 saturations in the 90s on 5 L/m per nasal cannula. She did utilize BiPAP last night 12/5 on 40% FiO2. She does have home oxygen. She is hyperglycemic and currently on insulin drip at 4.75 units per hour. Chest x-ray shows mild pulmonary vascular congestion with cardiomegaly and small bilateral effusions. Blood culture reveals no growth. Blood sugar 235. White count 9.0. Hemoglobin 10.8. Sodium 143. Potassium 3.5. Bicarb 51. BUN 34. Creatinine 0.66. Calcium 8.8. She remains on DuoNeb inhalations, Pulmicort and Perforomist inhalations, IV Solu-Medrol, IV diuretics. NicoDerm patch in place. She is currently in a -2.1 L balance. The patient is seen today 06/22/2023 in follow-up in the intensive care unit. She is currently sitting up in a chair at the bedside. Awake and alert and oriented. Cooperative. Maintaining O2 saturations in the 90s on 1.5 L/m per n keyana cannula. She did utilize BiPAP 12/5 and 40% FiO2 throughout the night. No IV fluids. She remains on DuoNeb inhalations, Pulmicort and Perforomist inhalations, Solu-Medrol. Remains on IV diuretics. Remains on ceftriaxone. NicoDerm patch in place. Chest x-ray showing improvement there is still some mild pulmonary vascular congestion with cardiomegaly and small bilateral pleural effusions. Blood culture revealed no growth. White count 8.6. Hemoglobin 11.1. Platelets 240. Sodium 139. Potassium 3.9. Bicarb 47. BUN 32. Creatinine 0.68. Glucose 184. Patient seen today 06/23/2023 in follow-up in the intensive care unit. She has a regular medical floor overflow. She is sitting up in a chair at the bedside. She is awake and alert in no acute distress. She is maintaining O2 saturation in low 90s on room air. Normal saline at KVO. She does not utilize BiPAP last night. She is continued on DuoNeb inhalations, Pulmicort from scintillations, Solu-Medrol. She remains on IV diuretics. Heparin for DVT prophylaxis. Haldol as needed. NicoDerm patch in place. She remains in a -1.7 L balance. 2135. Potassium 4.1. Bicarb 42. BUN 38. Creatinine 0.54. Glucose 243. Objective - Vital Signs Vital signs: Vital Signs Temp 98.1 F 06/23/23 08:00 Pulse 84 06/23/23 08:19 Resp 16 06/23/23 08:00 BP 143/86 06/23/23 08:00 Pulse Ox 90 L 06/23/23 08:02 FiO2 40 06/20/23 07:57 Intake & Output 06/22/23 06/23/23 06/23/23 18:59 06:59 18:59 Intake Total 270 20 Output Total 1275 725 Balance -1005 -705 Weight 90 kg 90.3 kg Intake: IV 20 20 Invasive Line 3 10 10 Invasive Line 4 10 10 Intake, IV Titration 250 Amount Magnesium Sulfate-D5w Pmx 200 1 gm In Dextrose/Water 1 100ml.bag @ 100 mls/hr IVPB Q1H [facility] Rx#: [id number] cefTRIAXone 2 gm In 50 Sodium Chloride 0.9% 50 ml @ 100 mls/hr IVPB Q24HR [facility] Rx#:[id number] Output: Urine 1275 725 Other: Voiding Method Indwelling Catheter Toilet # Voids 3 # Bowel Movements 5 1 - Exam GENERAL EXAM: Alert, cooperative 62-year-old female, up in a chair, on room air, comfortable in no apparent distress. HEAD: Normocephalic. EYES: Normal reaction of pupils, equal size. NOSE: Clear with pink turbinates. THROAT: No erythema or exudates. NECK: No masses, no JVD. CHEST: No chest wall deformity. LUNGS: Equal air entry with faint crackles in the posterior bases. CVS: S1 and S2 normal with no audible murmur, regular rhythm. ABDOMEN: No hepatosplenomegaly, normal bowel sounds, no guarding or rigidity. SPINE: No scoliosis or deformity SKIN: No rashes CENTRAL NERVOUS SYSTEM: No focal deficits, tone is normal in all 4 extremities. EXTREMITIES: There is no peripheral edema. No clubbing, no cyanosis. Peripheral pulses are intact. - Labs CBC & Chem 7: 06/22/23 03:45 06/23/23 03:52 Labs: Abnormal Lab Results - Last 24 Hours (Table) 06/22/23 06/22/23 06/22/23 Range/Units 10:57 16:10 20:01 Sodium (137-145) mmol/L Chloride (98-107) mmol/L Carbon Dioxide (22-30) mmol/L BUN (7-17) mg/dL Glucose (74-99) mg/dL POC Glucose (mg/dL) 157 H 170 H 298 H (70-110) mg/dL Magnesium (1.6-2.3) mg/dL 06/23/23 06/23/23 Range/Units 03:52 06:50 Sodium 135 L (137-145) mmol/L Chloride 87 L (98-107) mmol/L Carbon Dioxide 42 H* (22-30) mmol/L BUN 38 H (7-17) mg/dL Glucose 243 H (74-99) mg/dL POC Glucose (mg/dL) 354 H (70-110) mg/dL Magnesium 1.5 L (1.6-2.3) mg/dL Assessment and Plan Assessment: Acute on chronic hypoxic and hypercapnic respiratory failure secondary to diastolic congestive heart failure and chronic obstructive pulmonary disease exacerbations Acute on chronic diastolic congestive heart failure Cannot rule out underlying pneumonia especially with elevated pro calcitonin level continued on ceftriaxone Severe underlying COPD with chronic hypercapnia Acute metabolic encephalopathy secondary mostly to hypercapnia Chronic ongoing tobacco dependence Type 2 diabetes without complications Dyslipidemia Benign essential hypertension Degenerative joint disease History of gout Plan: The patient was seen and evaluated Labs and medications reviewed Currently on room air Continue diuretics, bronchodilators and steroids NicoDerm patch is in place Continued on IV diuretics Remains a regular medical floor overflow We will continue to follow I have personally seen and examined the patient, performed the documentation and the assessment and plan as written. Number of minutes spent on the visit: 10.
[2023-06-23 11:28] LABS: Glucose,Whole Blood 61 mg/dL (70-110)
[2023-06-23 12:04] LABS: Glucose,Whole Blood 65 mg/dL (70-110)
[2023-06-23 12:46] LABS: Glucose,Whole Blood 168 mg/dL (70-110)
[2023-06-23 16:36] LABS: Glucose,Whole Blood 103 mg/dL (70-110)
--- NOTE | 2023-06-23 17:55 | P.PN ---
Subjective This is a pleasant 62 years old female with multiple medical problems as below who was admitted for acute hypoxic respiratory and hypercapnic respiratory failure secondary to suspected pneumonia because of the elevated Pro-calcitonin With exacerbation of her chronic obstructive pulmonary disease and acute on chronic diastolic CHF. She is currently covered with ceftriaxone, IV Lasix 40 mg every 8 hours and IV Solu-Medrol 60 mg. Currently she is on BiPAP with a setting of 12/5 and FiO2 of 40%, we will try to get her off the BiPAP today. Cardoza in place with good urine output. She is alert awake oriented 1, she knows she is in [place], she is sleepy and lethargic. 06/21/2023 Patient is more awake and comfortable and breathing much easier today. She is less dependent on BiPAP and this morning she is only on nasal cannula at 3 L/m with oxygen saturation at 86-89 which is within the goals set by pulmonary service 85-90%. She denies chest pain and denies any other new complaints Vitals and labs look stable. She remains on ceftriaxone and IV Lasix was lowered to 40 mg twice daily instead of 3 times a day. On IV Solu-Medrol 60 mg lowered to 40 mg daily Patient was started on insulin drip yesterday for uncontrolled glucose as she was nothing by mouth, not taken her diabetes medication and on steroids. Today we will try to discontinue the insulin drip and start her on MRI 8 mg daily, metformin 1000 mg twice a day which are her home medication. Also increase her Levemir 8 units twice a day and 210 units twice a day. 06/22/2023 Patient today keep improving and feels better, sitting in chair fully awake, get a breathing treatment. Her respiratory symptoms improving and oxygen requirement down to 1.5 L/m Patient remains on ceftriaxone, Lasix, IV Solu-Medrol 40 mg Patient is planned to be transferred to the general medical floor today 06/23/2023 Patient is awake alert, breathing quietly, she is on 1 L oxygen via nasal cannula. She was getting her breathing treatment in the morning but feeling generally improved. Patient is planned to be transferred to be transferred to the [facility] once bed is available She is kept on IV Solu-Medrol 40 mg and IV Lasix 40 mg twice daily. Her sugar was on the low side this morning at 61, currently improved to 103 therefore we are going to lower her insulin 10 units twice a day into home dose of 8 units twice a day She is currently on ceftriaxone for elevated procalcitonin and suspected pulmonary airway infection therefore we are going to check pro-calcitonin and if it's improved back to normal then may consider to stop antibiotic Objective - Vital Signs Vital signs: Vital Signs Temp 98.1 F 06/23/23 08:00 Pulse 85 06/23/23 11:59 Resp 16 06/23/23 08:00 BP 143/86 06/23/23 08:00 Pulse Ox 90 L 06/23/23 08:02 FiO2 40 06/20/23 07:57 Intake & Output 06/22/23 06/23/23 06/23/23 18:59 06:59 18:59 Intake Total 270 20 20 Output Total 1275 725 Balance -1005 -705 20 Weight 90 kg 90.3 kg Intake: IV 20 20 20 Invasive Line 3 10 10 10 Invasive Line 4 10 10 10 Intake, IV Titration 250 Amount Magnesium Sulfate-D5w Pmx 200 1 gm In Dextrose/Water 1 100ml.bag @ 100 mls/hr IVPB Q1H [facility] Rx#: [id number] cefTRIAXone 2 gm In 50 Sodium Chloride 0.9% 50 ml @ 100 mls/hr IVPB Q24HR [facility] Rx#:[id number] Output: Urine 1275 725 Other: Voiding Method Indwelling Catheter Toilet Toilet # Voids 3 # Bowel Movements 5 1 - Exam GENERAL: The patient is alert and oriented x3, not in any acute distress. Well developed, well nourished. HEENT: Pupils are round and equally reacting to light. EOMI. No scleral icterus. No conjunctival pallor. Normocephalic, atraumatic. No pharyngeal erythema. No thyromegaly. CARDIOVASCULAR: S1 and S2 present. No murmurs, rubs, or gallops. -PULMONARY: Chest is clear to auscultation, no wheezing , no crackles. Mildly tachypneic, no BiPAP ABDOMEN: Soft, nontender, nondistended, normoactive bowel sounds. No palpable organomegaly. MUSCULOSKELETAL: No joint swelling or deformity. EXTREMITIES: No cyanosis, clubbing, or pedal edema. NEUROLOGICAL: Gross neurological examination did not reveal any focal deficits. SKIN: No rashes. no petechiae. - Labs CBC & Chem 7: 06/22/23 03:45 06/23/23 03:52 Labs: Abnormal Lab Results - Last 24 Hours (Table) 06/22/23 06/22/23 06/23/23 Range/Units 16:10 20:01 03:52 Sodium 135 L (137-145) mmol/L Chloride 87 L (98-107) mmol/L Carbon Dioxide 42 H* (22-30) mmol/L BUN 38 H (7-17) mg/dL Glucose 243 H (74-99) mg/dL POC Glucose (mg/dL) 170 H 298 H (70-110) mg/dL Magnesium 1.5 L (1.6-2.3) mg/dL 06/23/23 06/23/23 06/23/23 Range/Units 06:50 11:27 12:02 Sodium (137-145) mmol/L Chloride (98-107) mmol/L Carbon Dioxide (22-30) mmol/L BUN (7-17) mg/dL Glucose (74-99) mg/dL POC Glucose (mg/dL) 354 H 61 L 65 L (70-110) mg/dL Magnesium (1.6-2.3) mg/dL 06/23/23 Range/Units 12:44 Sodium (137-145) mmol/L Chloride (98-107) mmol/L Carbon Dioxide (22-30) mmol/L BUN (7-17) mg/dL Glucose (74-99) mg/dL POC Glucose (mg/dL) 168 H (70-110) mg/dL Magnesium (1.6-2.3) mg/dL Assessment and Plan Assessment: Acute COPD exacerbation Acute on chronic diastolic CHF with a preserved ejection fraction Acute hypoxic hypercapnic respiratory failure and suspected infection with acute tracheal bronchitis versus early pneumonia given her elevated procalcitonin History of seizure Possible acute tracheobronchitis with elevated pro-calcitonin Plan: Continue with IV Solu-Medrol Continue with IV Lasix Continue with ceftriaxone but check pro-calcitonin Pulmonary and cardiology consult Labs and medication were reviewed.. Continue same treatment. Continue with symptomatic treatment. Resume home medication. Monitor labs and vitals. DVT and GI prophylaxis. Further recommendations as per clinical course of the patient DVT prophylaxis: Subcutaneous heparin GI Prophylaxis: Ppi PT/OT: Pending Prognosis is guarded
[2023-06-23 20:30] LABS: Glucose,Whole Blood 200 mg/dL (70-110)
[2023-06-23] MEDS: ATORVASTATIN 80 MG TAB PO SCH (20:33)
[2023-06-23] MEDS: CYCLOBENZAPRINE 10 MG TAB PO SCH (20:33)
[2023-06-23] MEDS: MELATONIN 3 MG TABLET PO SCH (20:50)
[2023-06-24] MEDS: methylPREDNISolone SOD SUCCI 40 MG/ML 1 ML VIAL IV SCH ×2 (00:07→09:19)
[2023-06-24 04:35] LABS: Anisocytosis Moderate; Basophils % (A) 0 %; Eosinophils % (A) 0 %; HCT 37.5 % (34.0-46.0); HGB 11.1 gm/dL (11.4-16.0); Hypochromasia Marked; Lymphocytes # (A) 0.5 k/uL (1.0-4.8); Lymphocytes % (A) 6 %; MCH 22.2 pg (25.0-35.0); MCHC 29.5 g/dL (31.0-37.0); MCV 75.3 fL (80.0-100.0); Mean Platelet Volume 9.3; Microcytosis Moderate; Monocytes # (A) 0.4 k/uL (0-1.0); Monocytes % (A) 5 %; Neutrophils # (A) 7.3 k/uL (1.3-7.7); Neutrophils % (A) 87 %; Platelet Count 219 k/uL (150-450); Poikilocytosis Slight; RBC 4.99 m/uL (3.80-5.40); RDW 20.4 % (11.5-15.5); WBC 8.3 k/uL (3.8-10.6)
[2023-06-24 04:44] LABS: African American GFR (CKD) >90 (>60 ml/min/1.73 sqM); Blood Urea Nitrogen 33 mg/dL (7-17); Calcium 9.3 mg/dL (8.4-10.2); Chloride 88 mmol/L (98-107); Glucose 179 mg/dL (74-99); Magnesium 1.4 mg/dL (1.6-2.3); Non-African American GFR(CKD) >90 (>60 ml/min/1.73 sqM); Potassium 4.4 mmol/L (3.5-5.1); Sodium 133 mmol/L (137-145)
[2023-06-24 04:47] LABS: INR 1.3 (<1.2); Prothrombin Time 13.5 sec (9.0-12.0)
[2023-06-24 04:50] LABS: Anion Gap 10 mmol/L; Carbon Dioxide 35 mmol/L (22-30)
[2023-06-24] MEDS: MAGNESIUM SULFATE-D5W PMX 1 GM in DEXTROSE/WATER 1 100ML.BAG IVPB SCH ×2 (05:19→06:15)
[2023-06-24 05:37] LABS: Glucose,Whole Blood 232 mg/dL (70-110)
[2023-06-24] MEDS: INSULIN DETEMIR (LEVEMIR) 100 UNIT/ML SYR SQ SCH (06:14)
[2023-06-24] MEDS: INSULIN ASPART (NovoLOG) 100 UNIT/ML VIAL SQ SCH ×2 (06:14→12:02)
[2023-06-24] MEDS: FORMOTEROL FUMARATE 20 MCG/2 ML NEBU INHALATION SCH (07:49)
[2023-06-24] MEDS: BUDESONIDE 1 MG/2 ML NEBU INHALATION SCH (07:49)
[2023-06-24] MEDS: IPRATROPIUM-ALBUTEROL 3 ML NEB INHALATION SCH ×3 (07:49→15:22)
--- NOTE | 2023-06-24 08:12 | P.PN ---
Subjective Progress Note Date: 06/24/23 Principal diagnosis: Heart failure The patient is a 62-year-old female patient with heart failure with preserved ejection fraction as well as chronic obstructive pulmonary disease as well as obesity as well as multiple comorbid conditions including diabetes and hypertension and dyslipidemia was admitted to the hospital with acute hypoxic respiratory failure secondary to COPD exacerbation and CHF exacerbation. June 202022 The patient was seen and evaluated this morning. She is stable hemodynamically and not on any vasopressors patient continues to be hypoxic on BiPAP. She continues to diurese very well. Currently she is on Lasix IV. From the cardiovascular standpoint overview, I would suggest continue the current medical regimen including the current dose of Lasix IV. Her kidney function remains stable. Her GFR remains above 90. The chest x-ray continues to show evidence of volume overload with bilateral pleural effusion. June 212022 The patient was seen and evaluated this morning. She seems to be better overall. Hemodynamically she remained stable and not on any vasopressors. She continues to be on oxygen. Her CO2 has been in the the chest x-ray showed bilateral pleural effusions slightly worse on the right than the left. I am going to decrease the dose of Lasix given the increasing CO2 as well as she is not in overt volume overload. Down the line would switch her to oral Lasix. Beside that because she is tachycardic results of beta lg. June 222022 The patient was seen and evaluated. She remains stable. The dose of Lasix has decreased yesterday. Kidney function remains stable. The patient be transferred out of the intensive care unit. No symptoms of chest pain or chest discomfort. June 232022 The patient was seen and evaluated this morning. She still symptomatic in term of shortness of breath. She still hypoxic as well. She continues to be on Lasix IV at 40 twice a day and the kidney function remains stable. The chest x- ray continues to show findings consistent with heart failure as well. From the cardiac standpoint of view I would continue the current medical regimen and follow-up with the patient. The patient can be transferred out of the intensive care unit. June 242022 The patient was seen and evaluated this morning. She stated that she is feeling better. Her mentation has definitely improved. She continues to be on oxygen at 2 L right now. She still have diminished breathing sounds bilaterally on examination. She reports no pain in the chest. She has mild bilateral lower extremity edema as well. The kidney function remains stable on the current dose of Lasix IV. I'm going to continue the Lasix IV for additional 24-hour and monitor the kidney function and electrolytes and follow-up with the patient. Also obtain a chest x-ray. The examination is remarkable for diminished breathing sounds bilaterally. Also she has mild bilateral lower extremities Assessment Acute hypoxic respiratory failure COPD exacerbation Heart failure exacerbation secondary to heart failure with a preserved ejection fraction Metabolic encephalopathy Multiple comorbid conditions including diabetes and hypertension and dyslipidemia Plan Continue the current medical regimen including the current dose of Lasix IV for additional 24 hours Obtain a chest x-ray Continue monitor the kidney function and electrolytes Follow-up with the patient The patient can be transferred out of the ICU Objective - Vital Signs Vital signs: Vital Signs Temp 98.8 F 06/24/23 02:00 Pulse 92 06/24/23 08:07 Resp 18 06/24/23 02:00 BP 111/68 06/24/23 02:00 Pulse Ox 96 06/24/23 07:52 FiO2 40 06/20/23 07:57 Intake & Output 06/23/23 06/24/23 06/24/23 18:59 06:59 18:59 Intake Total 570 20 Output Total 1600 Balance 570 -1580 Weight 87.6 kg Intake: IV 20 20 Invasive Line 3 10 10 Invasive Line 4 10 10 Intake, IV Titration 50 Amount cefTRIAXone 2 gm In 50 Sodium Chloride 0.9% 50 ml @ 100 mls/hr IVPB Q24HR [facility] Rx#:[id number] Oral 500 Output: Urine 1600 Other: Voiding Method Toilet Bedside Commode Incontinent # Voids 1 # Bowel Movements 1 - Labs CBC & Chem 7: 06/24/23 04:06 06/24/23 04:06 Labs: Abnormal Lab Results - Last 24 Hours (Table) 06/23/23 06/23/23 06/23/23 Range/Units 11:27 12:02 12:44 Hgb (11.4-16.0) gm/dL MCV (80.0-100.0) fL MCH (25.0-35.0) pg MCHC (31.0-37.0) g/dL RDW (11.5-15.5) % Lymphocytes # (1.0-4.8) k/uL PT (9.0-12.0) sec INR (<1.2) Sodium (137-145) mmol/L Chloride (98-107) mmol/L Carbon Dioxide (22-30) mmol/L BUN (7-17) mg/dL Glucose (74-99) mg/dL POC Glucose (mg/dL) 61 L 65 L 168 H (70-110) mg/dL Magnesium (1.6-2.3) mg/dL 06/23/23 06/24/23 06/24/23 Range/Units 20:28 04:06 04:06 Hgb 11.1 L (11.4-16.0) gm/dL MCV 75.3 L (80.0-100.0) fL MCH 22.2 L (25.0-35.0) pg MCHC 29.5 L (31.0-37.0) g/dL RDW 20.4 H (11.5-15.5) % Lymphocytes # 0.5 L (1.0-4.8) k/uL PT (9.0-12.0) sec INR (<1.2) Sodium 133 L (137-145) mmol/L Chloride 88 L (98-107) mmol/L Carbon Dioxide 35 H (22-30) mmol/L BUN 33 H (7-17) mg/dL Glucose 179 H (74-99) mg/dL POC Glucose (mg/dL) 200 H (70-110) mg/dL Magnesium 1.4 L (1.6-2.3) mg/dL 06/24/23 06/24/23 Range/Units 04:06 05:35 Hgb (11.4-16.0) gm/dL MCV (80.0-100.0) fL MCH (25.0-35.0) pg MCHC (31.0-37.0) g/dL RDW (11.5-15.5) % Lymphocytes # (1.0-4.8) k/uL PT 13.5 H (9.0-12.0) sec INR 1.3 H (<1.2) Sodium (137-145) mmol/L Chloride (98-107) mmol/L Carbon Dioxide (22-30) mmol/L BUN (7-17) mg/dL Glucose (74-99) mg/dL POC Glucose (mg/dL) 232 H (70-110) mg/dL Magnesium (1.6-2.3) mg/dL
[2023-06-24] MEDS: MAGNESIUM OXIDE 400 MG TAB PO SCH (09:17)
[2023-06-24] MEDS: allopurinoL 100 MG TAB PO SCH (09:17)
[2023-06-24] MEDS: FENOFIBRATE 160 MG TAB PO SCH (09:17)
[2023-06-24] MEDS: metFORMIN 500 MG TAB PO SCH (09:17)
[2023-06-24] MEDS: GLIMEPIRIDE 4 MG TAB PO SCH (09:17)
[2023-06-24] MEDS: SPIRONOLACTONE 25 MG TAB PO SCH (09:17)
[2023-06-24] MEDS: METOPROLOL TARTRATE 25 MG TAB PO SCH (09:17)
[2023-06-24] MEDS: FUROSEMIDE 10 MG/ML 4 ML VIAL IV SCH (09:18)
[2023-06-24] MEDS: levETIRAcetam IV 500 MG/5 ML VIAL IVP SCH (09:18)
[2023-06-24] MEDS: HEPARIN SODIUM,PORCINE 5,000 UNIT/ML 1 ML VIAL SQ SCH (09:18)
[2023-06-24] MEDS: PANTOPRAZOLE 40 MG/10 ML VIAL IVP SCH (09:18)
[2023-06-24] MEDS: NICOTINE 21MG/24HR PATCH TRANSDERM SCH (09:19)
--- NOTE | 2023-06-24 09:56 | P.PN ---
Subjective Progress Note Date: 06/24/23 This is a 62-year-old female, familiar to our service, patient was seen actually a month ago during her last admission at [facility]. Patient is known to have history of chronic diastolic congestive heart failure, COPD, glaucoma, chronic low back pain, hypertension, degenerative joint disease, chronic hypoxic respiratory failure on home oxygen, chronic and ongoing tobacco dependence, type 2 diabetes, dyslipidemia, patient had multiple admissions in the past with altered mental status and hypoxemia as well as hypercapnia. Could not get much history from the patient. Apparently the patient was brought into the ER with complaints of cough and shortness of breath. Apparently upon arrival the patient was extremely agitated, and that 3 people to hold him down, and the patient was given 1 dose of Ativan, and when I evaluated the patient she was clearly obtunded, could not even arouse the patient with deep painful stimuli, hence I recommended placing the patient on BiPAP, ABG prior to placement on BiPAP showed a significant hypercapnia, pCO2 of 95 pH of 7.28 and pO2 was 76. This was on 50% FiO2. I recommended that the patient goes on BiPAP, and instead of admitting the patient to the medical floor, and recommended admitting the patient to the ICU setting. Chest x-ray showed evidence of pulmonary edema labs showed significantly elevated BNP level, relatively normal CBC with a hemoglobin of 10.8, WBC count 11.2, basic metabolic profile was relatively normal. Bicarb was noted to be 36 indicative of chronic hypercapnia and metabolic compensation. BNP level was 10,900, influenza RSV and COVID-19 screening were made Reevaluated today on 06/17/2023, patient remains in the ICU, on BiPAP 12//40%, patient is lethargic nonetheless she is arousable with deep painful stimuli. She is in normal sinus rhythm, blood pressure 109/64, does not seem to be in any distress. WBC count is 8.9 hemoglobin 10.8 electrolytes are relatively normal except bicarb is 41 renal profile is normal. CT brain is unremarkable from admission. Chest x-ray showed cardiomegaly and mild pulmonary vascular congestion, patient had elevated BNP level of 10,900. She also had elevated pro calcitonin of 0.201 admission. Still receiving diuretics and antibiotics since admission she is on Rocephin and Zithromax Reevaluated today on , patient remains in the ICU, on BiPAP, 12/5/40%. Patient is also on Precedex at 0.2 mcg/kg/hour, she received Haldol yesterday because she was getting quite agitated in spite of Precedex. This morning I was able to awaken the patient, seems to be pleasant and appropriate, hence we'll try the patient on a nasal cannula and set of BiPAP. WBC count is 5.4 hemoglobin 10.7 electrodes are normal renal profile is normal. Patient is relatively asymptomatic but according to the nurses she has intermittent episodes of confusion and agitation nonetheless I plan to keep her on Precedex today, and I plan to keep her in the ICU today. Reevaluated today on 06/19/2023, patient remains in ICU, remains on 12/5/40%, ABG today showed a pO2 of 82 pCO2 67 pH of 7.40. Patient remains on Precedex at 0.5 mcg/kg/h remains calm, and hopefully we can eventually transitioned the patient to nasal cannula, we continue to try on a daily basis to see if she could tolerate coming off BiPAP. The ABG this morning seems to be reassuring is that of than expected. MHC count 7.7 hemoglobin is 10.7. Basic metabolic profile and renal profile is normal bicarb is 36. Chest x-ray is showing improvement with pulmonary venous congestion, minimal right basilar atelectasis and small effusion is possible. The patient is seen today 06/20/2023 in follow-up in the intensive care unit. She remains on BiPAP 12/5 on 40% FiO2. She remains confused to time and place. nanny babysitter at the bedside. Her Precedex infusion is currently off. Blood culture reveals no growth. White count 4.7. Hemoglobin 10.8. Platelets 245. Sodium 144. Potassium 3.4. Bicarb 37. BUN 31. Creatinine 0.58. Glucose 166. He is continued on DuoNeb inhalations, Pulmicort and Perforomist inhalations, IV Solu-Medrol. She also remains on IV diuretics. Currently in a -2.2 L balance. NicoDerm patch in place. She is continued on ceftriaxone. Heparin for DVT prophylaxis. Chest x-ray remains stable with some trace to small bilateral pleural effusions. The patient is seen today 06/21/2023 in follow-up in the intensive care unit. She is much more awake and alert today. Cooperative. nanny babysitter remains at the bedside. She remains off Precedex. She is sitting up in bed. Maintaining O2 saturations in the 90s on 5 L/m per nasal cannula. She did utilize BiPAP last night 12/5 on 40% FiO2. She does have home oxygen. She is hyperglycemic and currently on insulin drip at 4.75 units per hour. Chest x-ray shows mild pulmonary vascular congestion with cardiomegaly and small bilateral effusions. Blood culture reveals no growth. Blood sugar 235. White count 9.0. Hemoglobin 10.8. Sodium 143. Potassium 3.5. Bicarb 51. BUN 34. Creatinine 0.66. Calcium 8.8. She remains on DuoNeb inhalations, Pulmicort and Perforomist inhalations, IV Solu-Medrol, IV diuretics. NicoDerm patch in place. She is currently in a -2.1 L balance. The patient is seen today 06/22/2023 in follow-up in the intensive care unit. She is currently sitting up in a chair at the bedside. Awake and alert and oriented. Cooperative. Maintaining O2 saturations in the 90s on 1.5 L/m per n keyana cannula. She did utilize BiPAP 12/5 and 40% FiO2 throughout the night. No IV fluids. She remains on DuoNeb inhalations, Pulmicort and Perforomist inhalations, Solu-Medrol. Remains on IV diuretics. Remains on ceftriaxone. NicoDerm patch in place. Chest x-ray showing improvement there is still some mild pulmonary vascular congestion with cardiomegaly and small bilateral pleural effusions. Blood culture revealed no growth. White count 8.6. Hemoglobin 11.1. Platelets 240. Sodium 139. Potassium 3.9. Bicarb 47. BUN 32. Creatinine 0.68. Glucose 184. Patient seen today 06/23/2023 in follow-up in the intensive care unit. She has a regular medical floor overflow. She is sitting up in a chair at the bedside. She is awake and alert in no acute distress. She is maintaining O2 saturation in low 90s on room air. Normal saline at KVO. She does not utilize BiPAP last night. She is continued on DuoNeb inhalations, Pulmicort from scintillations, Solu-Medrol. She remains on IV diuretics. Heparin for DVT prophylaxis. Haldol as needed. NicoDerm patch in place. She remains in a -1.7 L balance. 2135. Potassium 4.1. Bicarb 42. BUN 38. Creatinine 0.54. Glucose 243. The patient is seen today 06/24/2023 in follow-up in the intensive care unit. She remains a regular medical floor overflow. She is sitting up at the bedside. Awake and alert in no acute distress. Maintaining O2 saturations in the 90s on 1 L/m per nasal cannula. No IV fluids. Chest x-ray shows a small right pleural effusion with adjacent atelectasis. Blood cultures reveal no growth. White c ount 8.3. Hematoma 0.1. Sodium 133. Potassium 4.4. Bicarb 35. BUN 33. Creatinine 0.61. Glucose 179. She remains on DuoNeb inhalations, Pulmicort and Perforomist inhalations, Solu-Medrol. Antibiotics in the form of ceftriaxone. Heparin for DVT prophylaxis. Remains on Lasix 40 mg IV every 12 hours. Currently in a -1.0 L balance. Objective - Vital Signs Vital signs: Vital Signs Temp 98.8 F 06/24/23 02:00 Pulse 92 06/24/23 08:07 Resp 18 06/24/23 02:00 BP 111/68 06/24/23 02:00 Pulse Ox 96 06/24/23 07:52 FiO2 40 06/20/23 07:57 Intake & Output 06/23/23 06/24/23 06/24/23 18:59 06:59 18:59 Intake Total 570 20 Output Total 1600 Balance 570 -1580 Weight 87.6 kg Intake: IV 20 20 Invasive Line 3 10 10 Invasive Line 4 10 10 Intake, IV Titration 50 Amount cefTRIAXone 2 gm In 50 Sodium Chloride 0.9% 50 ml @ 100 mls/hr IVPB Q24HR [facility] Rx#:[id number] Oral 500 Output: Urine 1600 Other: Voiding Method Toilet Bedside Commode Incontinent # Voids 1 # Bowel Movements 1 - Exam GENERAL EXAM: Alert, 62-year-old female, on room air, comfortable in no apparent distress. HEAD: Normocephalic. EYES: Normal reaction of pupils, equal size. NOSE: Clear with pink turbinates. THROAT: No erythema or exudates. NECK: No masses, no JVD. CHEST: No chest wall deformity. LUNGS: Equal air entry with faint crackles in the posterior bases. CVS: S1 and S2 normal with no audible murmur, regular rhythm. ABDOMEN: No hepatosplenomegaly, normal bowel sounds, no guarding or rigidity. SPINE: No scoliosis or deformity SKIN: No rashes CENTRAL NERVOUS SYSTEM: No focal deficits, tone is normal in all 4 extremities. EXTREMITIES: There is no peripheral edema. No clubbing, no cyanosis. Peripheral pulses are intact. - Labs CBC & Chem 7: 06/24/23 04:06 06/24/23 04:06 Labs: Abnormal Lab Results - Last 24 Hours (Table) 06/23/23 06/23/23 06/23/23 Range/Units 11:27 12:02 12:44 Hgb (11.4-16.0) gm/dL MCV (80.0-100.0) fL MCH (25.0-35.0) pg MCHC (31.0-37.0) g/dL RDW (11.5-15.5) % Lymphocytes # (1.0-4.8) k/uL PT (9.0-12.0) sec INR (<1.2) Sodium (137-145) mmol/L Chloride (98-107) mmol/L Carbon Dioxide (22-30) mmol/L BUN (7-17) mg/dL Glucose (74-99) mg/dL POC Glucose (mg/dL) 61 L 65 L 168 H (70-110) mg/dL Magnesium (1.6-2.3) mg/dL 06/23/23 06/24/23 06/24/23 Range/Units 20:28 04:06 04:06 Hgb 11.1 L (11.4-16.0) gm/dL MCV 75.3 L (80.0-100.0) fL MCH 22.2 L (25.0-35.0) pg MCHC 29.5 L (31.0-37.0) g/dL RDW 20.4 H (11.5-15.5) % Lymphocytes # 0.5 L (1.0-4.8) k/uL PT (9.0-12.0) sec INR (<1.2) Sodium 133 L (137-145) mmol/L Chloride 88 L (98-107) mmol/L Carbon Dioxide 35 H (22-30) mmol/L BUN 33 H (7-17) mg/dL Glucose 179 H (74-99) mg/dL POC Glucose (mg/dL) 200 H (70-110) mg/dL Magnesium 1.4 L (1.6-2.3) mg/dL 06/24/23 06/24/23 Range/Units 04:06 05:35 Hgb (11.4-16.0) gm/dL MCV (80.0-100.0) fL MCH (25.0-35.0) pg MCHC (31.0-37.0) g/dL RDW (11.5-15.5) % Lymphocytes # (1.0-4.8) k/uL PT 13.5 H (9.0-12.0) sec INR 1.3 H (<1.2) Sodium (137-145) mmol/L Chloride (98-107) mmol/L Carbon Dioxide (22-30) mmol/L BUN (7-17) mg/dL Glucose (74-99) mg/dL POC Glucose (mg/dL) 232 H (70-110) mg/dL Magnesium (1.6-2.3) mg/dL Assessment and Plan Assessment: Acute on chronic hypoxic and hypercapnic respiratory failure secondary to di astolic congestive heart failure and chronic obstructive pulmonary disease exacerbations Acute on chronic diastolic congestive heart failure Cannot rule out underlying pneumonia especially with elevated pro calcitonin level continued on ceftriaxone Severe underlying COPD with chronic hypercapnia Acute metabolic encephalopathy secondary mostly to hypercapnia Chronic ongoing tobacco dependence Type 2 diabetes without complications Dyslipidemia Benign essential hypertension Degenerative joint disease History of gout Plan: The patient was seen and evaluated Chest x-ray, labs and medications reviewed Currently stable and on room air Continue the current treatment plan We will continue to follow I have personally seen and examined the patient, performed the documentation and the assessment and plan as written. Number of minutes spent on the visit: 10.
--- NOTE | 2023-06-24 10:02 | XR ---
EXAMINATION TYPE: XR chest 1V DATE OF EXAM: 06/24/2023 HISTORY: Shortness of breath. COMPARISON: 06/22/2023 TECHNIQUE: Single view of the chest is submitted. FINDINGS: Demonstrated are scattered senescent parenchymal change. Patchy density left medial lung base may reflect developing pneumonia. Chronic elevation right hemidi aphragm. The heart is stable. Hilar and mediastinal structures are within normal limits. Degenerative changes are seen of the dorsal spine. IMPRESSION: 1. Patchy density left medial lung base may reflect developing pneumonia.
[2023-06-24] MEDS ORDERED: MAGNESIUM SULFATE-D5W PMX 1 GM in DEXTROSE/WATER 1 100ML.BAG IVPB ONE (10:46)
[2023-06-24 11:34] LABS: Glucose,Whole Blood 263 mg/dL (70-110)
[2023-06-24 15:28] VITALS: BP 137/82; PULSE 87; RESP 18; TEMP 98.4
== END 2023-06-24 15:29 | disposition home or self-care (01) | DRG 194 ==
LOC: EC 02:37 → 3SCARD 05:40 → 2SICU 11:21
PROVIDERS: ADMIT Hospitalist; ATTEND Hospitalist
PROC: 5A09457 Assistance with Respiratory Ventilation, 24-96 Consecutive Hours, Continuous Positive Airway Pressure (ICD-10-PCS; principal; 2023-06-16)
DX: I11.0 Hypertensive heart disease with heart failure (principal); I50.33 Acute on chronic diastolic (congestive) heart failure; J96.21 Acute and chronic respiratory failure with hypoxia; J96.22 Acute and chronic respiratory failure with hypercapnia; G93.41 Metabolic encephalopathy; J44.1 Chronic obstructive pulmonary disease with (acute) exacerbation; J18.9 Pneumonia, unspecified organism; J44.0 Chronic obstructive pulmonary disease with (acute) lower respiratory infection; E11.65 Type 2 diabetes mellitus with hyperglycemia; G40.909 Epilepsy, unspecified, not intractable, without status epilepticus; Z79.4 Long term (current) use of insulin; Z20.822 Contact with and (suspected) exposure to COVID-19; J98.11 Atelectasis; K21.9 Gastro-esophageal reflux disease without esophagitis; M41.9 Scoliosis, unspecified; M19.90 Unspecified osteoarthritis, unspecified site; E78.5 Hyperlipidemia, unspecified; G89.29 Other chronic pain; M54.50 Low back pain, unspecified; H40.9 Unspecified glaucoma; M10.9 Gout, unspecified; M25.552 Pain in left hip; E66.9 Obesity, unspecified; Z68.35 Body mass index [BMI] 35.0-35.9, adult; F17.210 Nicotine dependence, cigarettes, uncomplicated; Z71.6 Tobacco abuse counseling; Z99.81 Dependence on supplemental oxygen; Z79.51 Long term (current) use of inhaled steroids; Z79.84 Long term (current) use of oral hypoglycemic drugs; Z79.899 Other long term (current) drug therapy; Z71.3 Dietary counseling and surveillance; Z88.5 Allergy status to narcotic agent
CPT/HCPCS: 36415; 36600; 70450; 71045; 71046; 80048; 80053; 81003; 82805; 83036; 83605; 83735; 83880; 84132; 84145; 84484; 85025; 85610; 85730; 87040; 87636; 93005; 94640; 94660; 94760; 96365; 96366; 96367; 96375; 96376; 99285

== ENCOUNTER 2023-08-03 10:26 | Inpatient (IN) | payer MEDICARE, OTHER ==
[2023-08-03] MEDS ORDERED: HYDROmorphone 1 MG/ML 1 ML SYRINGE IVP STA (10:46)
[2023-08-03 11:27] LABS: Anisocytosis Moderate; Basophils # (A) 0.1 k/uL (0-0.2); Basophils % (A) 0 %; Eosinophils % (A) 0 %; HCT 38.1 % (34.0-46.0); HGB 11.1 gm/dL (11.4-16.0); Hypochromasia Marked; Lymphocytes % (A) 9 %; MCH 23.1 pg (25.0-35.0); MCV 79.7 fL (80.0-100.0); Mean Platelet Volume 9.1; Microcytosis Moderate; Monocytes # (A) 0.9 k/uL (0-1.0); Monocytes % (A) 8 %; Neutrophils # (A) 9.8 k/uL (1.3-7.7); Neutrophils % (A) 82 %; Poikilocytosis Moderate; RBC 4.78 m/uL (3.80-5.40); RDW 21.6 % (11.5-15.5)
[2023-08-03 11:36] LABS: Platelet Count 483 k/uL (150-450)
--- NOTE | 2023-08-03 11:39 | CT ---
EXAMINATION TYPE: CT brain cspine wo con DATE OF EXAM: 08/03/2023 COMPARISON: 06/16/2023 HISTORY: ams, unresponsive CT DLP: 1498.5 mGycm Automated exposure control for dose reduction was used. TECHNIQUE: CT scan of the head and cervical spine are performed without contrast. FINDINGS: There is no acute intracranial hemorrhage, mass effect, or midline shift identified. The ventricles and sulci are within normal limits in size. The globes are intact and the visualized sin uses are clear. Basal ganglia calcifications noted. Intracranial atherosclerotic changes. Cervical spine is visualized in its entirety from C1 through upper thoracic levels and demonstrates s atisfactory alignment without evidence of acute fracture or dislocation. Prevertebral soft tissue ap pears within normal limits. The C1-C2 articulation is unremarkable. Groundglass changes involving bilateral lung apices with peripheral sparing some pleural paraseptal s een carotid artery. There is loss of cervical lordosis with kyphosis. Multilevel facet arthropathy with fusion of the fac ets involving the cervicothoracic junction. There is multilevel foraminal stenosis. Most marked at C5 -6 and C6-C7. IMPRESSION: 1. There is no acute fracture or dislocation evident in the cervical spine. Multilevel degenerative d isc disease and facet arthropathy with foraminal encroachment and canal stenosis. Recommend follow-up MRI. 2. No acute intracranial hemorrhage, mass effect, or midline shift is seen.
--- NOTE | 2023-08-03 11:47 | XR ---
EXAMINATION TYPE: XR hand complete RT DATE OF EXAM: 08/03/2023 COMPARISON: None HISTORY: Fall TECHNIQUE: 3V right hand FINDINGS: No acute fracture or dislocation is evident. Degenerative joint changes throughout the carp al junction with some mild sclerosis of the distal scaphoid. Carpal metacarpal junction degenerative joint change is present. Remaining joint spaces are preserved. Soft tissues are normal. Follow up exams in 7-10 days from acute trauma for continued pain IMPRESSION: 1. Degenerative joint changes within the wrist. 2. No acute osseous abnormality right hand
[2023-08-03 11:48] LABS: INR 1.9 (<1.2); Prothrombin Time 18.6 sec (9.0-12.0)
--- NOTE | 2023-08-03 11:49 | XR ---
EXAMINATION TYPE: XR Hip RT and AP Pelvis DATE OF EXAM: 08/03/2023 COMPARISON: None HISTORY: Fall, pain TECHNIQUE: 2 view right hip supplemented with AP pelvis FINDINGS: No acute fracture or dislocation is evident. Femoral heads articulate with the acetabulum. Symphysis pubis and sacroiliac joints are normal. Degenerative disc changes are within the lower lumb ar spine Left femoral head articulates with the acetabulum. No acute fractures are evident. IMPRESSION: 1. No acute osseous abnormality right hip
--- NOTE | 2023-08-03 11:50 | XR ---
EXAMINATION TYPE: XR chest 2V DATE OF EXAM: 08/03/2023 COMPARISON: 06/24/2023 INDICATION: Altered mental status, fall TECHNIQUE: Frontal and lateral views of the chest are obtained. FINDINGS: The heart size is normal. The pulmonary vasculature is normal. Smiled increased densities at the lung bases. Correlate for atelectasis or pneumonia. Fixation levi wi thin the mid thoracic spine is present. IMPRESSION: 1. Bibasilar infiltrates. Correlate for atelectasis or pneumonia. Follow-up can be performed.
[2023-08-03 11:53] LABS: ALT 25 U/L (4-34); AST 59 U/L (14-36); Acetaminophen <10.0 ug/mL; African American GFR (CKD) >90 (>60 ml/min/1.73 sqM); Albumin 3.2 g/dL (3.5-5.0); Alcohol <10 mg/dL; Alkaline Phosphatase 72 U/L (38-126); Blood Urea Nitrogen 38 mg/dL (7-17); Calcium 8.7 mg/dL (8.4-10.2); Chloride 85 mmol/L (98-107); Glucose 172 mg/dL (74-99); Non-African American GFR(CKD) >90 (>60 ml/min/1.73 sqM); Potassium 3.5 mmol/L (3.5-5.1); Sodium 141 mmol/L (137-145); Total Bilirubin 0.9 mg/dL (0.2-1.3); Total Protein 5.7 g/dL (6.3-8.2)
[2023-08-03 11:59] LABS: Partial Thromboplastin Time 21.9 sec (22.0-30.0)
[2023-08-03 12:10] LABS: Appearance,Urine Clear (Clear); Bacteria,Urine Rare /hpf; Bilirubin,Urine Negative (Negative); Blood,Urine Negative (Negative); Color,Urine Yellow; Glucose,Urine (UA) 3+ (Negative); Hyaline Casts,Urine 6 /lpf (0-2); Ketones,Urine Trace (Negative); Leukocyte Esterase,Urine Negative (Negative); Nitrite,Urine Negative (Negative); Protein,Urine 1+ (Negative); RBC,Urine <1 /hpf (0-5); Specific Gravity,Urine 1.018 (1.001-1.035); Squamous Epithelial Cell,Urine 4 /hpf (0-4); Urobilinogen,Urine <2.0 mg/dL (<2.0); WBC,Urine 3 /hpf (0-5)
[2023-08-03 12:16] LABS: VBG PH 7.41 (7.31-7.41)
[2023-08-03 12:17] LABS: Amphetamine Screen,Urine Not Detected (NotDetected); Barbiturate Screen,Urine Not Detected (NotDetected); Benzodiazepines Screen,Urine Not Detected (NotDetected); Cocaine Screen,Urine Not Detected (NotDetected); Methadone Screen, Urine Not Detected (NotDetected); Oxycodone Screen, Urine Not Detected (NotDetected); Phencyclidine Screen,Urine Not Detected (NotDetected); Tricyclic Antidepressant,Urine Not Detected (NotDetected); Urn Cannabinoid Scrn Not Detected (NotDetected)
[2023-08-03 12:18] LABS: Opiate Screen,Urine Detected (NotDetected)
--- NOTE | 2023-08-03 12:23 | ED ---
Altered Mental Status HPI - General Chief Complaint: Altered Mental Status Stated Complaint: AMS Time Seen by Provider: 08/03/23 11:00 Source: patient, EMS Mode of arrival: EMS Limitations: altered mental status - History of Present Illness Initial Comments: 63-year-old female past history of COPD, heart failure on 2 L home O2 who presents to the emergency department with altered mental status. EMS provided the history. States that the patient fell in the middle the night. She was found on her bedroom floor. had to go to the neighbors to ask them to call EMS. He did not do so until this morning. Reportedly the patient laid on the ground over night. She does have bruising noted to the left hip and right hand. Patient comes in yelling complaining of right hip pain. Cannot provide any further history. Patient visibly unkept. HPI is limited because the patient's current condition - Related Data Home Medications Medication Instructions Recorded Confirmed Cyclobenzaprine [Flexeril] 10 mg PO HS 07/11/14 08/03/23 Omeprazole [PriLOSEC] 20 mg PO DAILY 08/05/14 08/03/23 Fenofibrate 160 mg PO DAILY 05/27/16 08/03/23 allopurinoL [Allopurinol] 100 mg PO DAILY 05/27/16 08/03/23 Glimepiride [Amaryl] 8 mg PO DAILY 06/28/17 08/03/23 rOPINIRole HCL [Requip] 0.25 mg PO HS 06/02/18 08/03/23 Atorvastatin [Lipitor] 80 mg PO HS 01/21/22 08/03/23 Empagliflozin [Jardiance] 25 mg PO DAILY 01/21/22 08/03/23 Ergocalciferol (Vitamin D2) 1,250 mcg PO MO 01/21/22 08/03/23 [Drisdol (50,000 Iu)] Magnesium Oxide [Magox 400] 400 mg PO BID 01/21/22 08/03/23 Pregabalin [Lyrica] 150 mg PO BID 01/21/22 08/03/23 metFORMIN HCL [Glucophage] 1,000 mg PO BID 01/21/22 08/03/23 HYDROcodone/APAP 5-325MG [[place] 1 tab PO BID PRN 04/08/23 08/03/23 5-325] Potassium Chloride 10 meq PO DAILY 04/08/23 08/03/23 levETIRAcetam [Keppra] 1,500 mg PO BID 04/08/23 08/03/23 Albuterol Inhaler [Ventolin Hfa 2 puff INHALATION RT-Q6H PRN 08/03/23 08/03/23 Inhaler] Previous Rx's Medication Instructions Recorded Insulin Detemir [Levemir Flexpen] 8 units SQ BID #3 each 04/18/23 Nicotine 21Mg/24Hr Patch [Habitrol] 1 patch TRANSDERM DAILY #4 patch 04/18/23 Budesonide-Formot 160-4.5 Mcg 2 puff INHALATION RT-BID 30 Days 05/13/23 [Symbicort 160-4.5 Mcg Inhaler] #1 each Furosemide [Lasix] 40 mg PO DAILY #60 tab 06/24/23 Metoprolol Tartrate [Lopressor] 25 mg PO BID #60 tab 06/24/23 Spironolactone [Aldactone] 25 mg PO DAILY #30 tab 06/24/23 Allergies Allergy/AdvReac Type Severity Reaction Status Date / Time codeine AdvReac Severe Abdominal Verified 08/03/23 12:16 Pain Review of Systems ROS Statement: Those systems with pertinent positive or pertinent negative responses have been documented in the HPI. ROS Other: All systems not noted in ROS Statement are negative. Past Medical History Past Medical History: Heart Failure, COPD, Diabetes Mellitus, Eye Disorder, GERD/Reflux, Hyperlipidemia, Hypertension, Osteoarthritis (OA) Additional Past Medical History / Comment(s): glaucoma. "Knees have been giving out." DDD. gout, lower back and left hip pain History of Any Multi-Drug Resistant Organisms: None Reported Past Surgical History: Back Surgery, Section, Cholecystectomy, Tubal Ligation Additional Past Surgical History / Comment(s): MARBIN PLACED FOR SCOLIOSIS as child. mult left breast biopsy, Past Anesthesia/Blood Transfusion Reactions: No Reported Reaction Past Psychological History: No Psychological Hx Reported Smoking Status: Current every day smoker Past Alcohol Use History: None Reported Past Drug Use History: None Reported - Past Family History Brother(s) Family Medical History: Diabetes Mellitus Mother Family Medical History: Cancer Father Family Medical History: Cancer General Exam Limitations: altered mental status General appearance: lethargic Head exam: Present: atraumatic, normocephalic, normal inspection Eye exam: Present: normal appearance, PERRL, EOMI. Absent: scleral icterus, conjunctival injection, periorbital swelling ENT exam: Present: mucous membranes dry Neck exam: Present: normal inspection. Absent: tenderness, meningismus, ly mphadenopathy Respiratory exam: Present: wheezes, decreased breath sounds Cardiovascular Exam: Present: tachycardia GI/Abdominal exam: Present: soft, normal bowel sounds. Absent: distended, tenderness, guarding, rebound, rigid Extremities exam: Present: other (Ecchymosis over the left hip and right hand. Patient has extreme tenderness to palpation of the right hip) Neurological exam: Present: altered Psychiatric exam: Present: agitated, anxious Skin exam: Present: warm, dry, intact, normal color. Absent: rash Course Vital Signs 08/03/23 08/03/23 08/03/23 10:54 14:20 14:21 Temperature 97.7 F Pulse Rate Pulse Rate [ 112 H Pulse Oximetery ] Respiratory 16 Rate Blood Pressure [Right Arm] O2 Sat by Pulse 93 L Oximetry Fraction of 40 40 Inspired Oxygen (FIO2) 08/03/23 08/03/23 08/03/23 15:19 16:10 16:15 Temperature 97.6 F Pulse Rate 93 Pulse Rate [ 93 93 Pulse Oximetery ] Respiratory 12 12 Rate Blood Pressure 138/95 133/77 [Right Arm] O2 Sat by Pulse 97 95 Oximetry Fraction of 40 40 Inspired Oxygen (FIO2) 08/03/23 08/03/23 08/03/23 16:25 16:34 16:47 Temperature Pulse Rate 93 Pulse Rate [ 90 Pulse Oximetery ] Respiratory 13 Rate Blood Pressure 132/71 [Right Arm] O2 Sat by Pulse 98 Oximetry Fraction of 35 35 Inspired Oxygen (FIO2) 08/03/23 08/03/23 08/03/23 18:14 18:50 19:46 Temperature Pulse Rate 89 Pulse Rate [ 89 95 Pulse Oximetery ] Respiratory 15 11 L Rate Blood Pressure 119/59 114/68 [Right Arm] O2 Sat by Pulse 97 96 Oximetry Fraction of 35 35 35 Inspired Oxygen (FIO2) 08/03/23 08/03/23 08/03/23 19:58 19:59 20:00 Temperature 97.4 F L Pulse Rate 86 Pulse Rate [ 82 Pulse Oximetery ] Respiratory 13 Rate Blood Pressure 120/107 [Right Arm] O2 Sat by Pulse 92 L 95 Oximetry Fraction of 35 35 Inspired Oxygen (FIO2) 08/04/23 08/04/23 08/04/23 00:00 00:25 00:36 Temperature Pulse Rate 84 84 Pulse Rate [ 83 Pulse Oximetery ] Respiratory 12 Rate Blood Pressure 126/82 [Right Arm] O2 Sat by Pulse 90 L Oximetry Fraction of 35 35 Inspired Oxygen (FIO2) 08/04/23 08/04/23 08/04/23 02:00 03:41 03:51 Temperature Pulse Rate 79 90 Pulse Rate [ 83 Pulse Oximetery ] Respiratory 12 Rate Blood Pressure [Right Arm] O2 Sat by Pulse Oximetry Fraction of 35 Inspired Oxygen (FIO2) 08/04/23 08/04/23 08/04/23 04:00 08:29 08:45 Temperature Pulse Rate 82 82 Pulse Rate [ 79 Pulse Oximetery ] Respiratory 12 Rate Blood Pressure 118/79 [Right Arm] O2 Sat by Pulse 93 L 100 Oximetry Fraction of 35 50 Inspired Oxygen (FIO2) 08/04/23 08/04/23 08/04/23 09:42 12:00 12:47 Temperature Pulse Rate 82 Pulse Rate [ 92 90 Pulse Oximetery ] Respiratory 13 15 Rate Blood Pressure 148/72 147/69 [Right Arm] O2 Sat by Pulse 92 L 95 93 L Oximetry Fraction of Inspired Oxygen (FIO2) 08/04/23 08/04/23 08/04/23 13:00 15:19 15:32 Temperature Pulse Rate 82 89 89 Pulse Rate [ Pulse Oximetery ] Respiratory Rate Blood Pressure [Right Arm] O2 Sat by Pulse Oximetry Fraction of Inspired Oxygen (FIO2) 08/04/23 08/04/23 15:39 15:45 Temperature 98.4 F Pulse Rate Pulse Rate [ 90 90 Pulse Oximetery ] Respiratory 18 18 Rate Blood Pressure 118/65 [Right Arm] O2 Sat by Pulse 96 Oximetry Fraction of Inspired Oxygen (FIO2) Medical Decision Making - Medical Decision Making Was pt. sent in by a medical professional or institution (, PA, COMMERCIAL CONSTRUCTION ESTIMATOR, urgent care, hospital, or residential...) When possible be specific @ -No Did you speak to anyone other than the patient for history (EMS, parent, family, police, friend...)? What history was obtained from this source @ -EMS Did you review nursing and triage notes (agree or disagree)? Why? @ -I reviewed and agree with nursing and triage notes Were old charts reviewed (outside hosp., previous admission, EMS record, old EKG, old radiological studies, urgent care reports/EKG's, residential records)? Report findings @ -old charts were reviewed. I reviewed patient's discharge summary from one month ago Differential Diagnosis (chest pain, altered mental status, abdominal pain women, abdominal pain men, vaginal bleeding, weakness, fever, dyspnea, syncope, headache, dizziness, GI bleed, back pain, seizure, CVA, palpatations, mental health, musculoskeletal)? @ -Differential Altered Mental Status: Hypoglycemia, DKA, hypercapnia, ETOH, overdose, CO poisoning, trauma, myxedema coma, HTN encephalopathy, infection, encephalitis, psychosis, intercranial hemorrhage, hepatic encephalopathy, meningitis, CVA, this is not meant to be an all-inclusive list EKG interpreted by me (3pts min.). @ -Yes and demonstrates sinus tachycardia with a rate of 111. IA interval 159. QRS 85. QTC is 352. No acute ST segment elevations or depressions X-rays interpreted by me (1pt min.). @ -Yes and demonstrates atelectasis versus pneumonia CT interpreted by me (1pt min.). @ -Yes and demonstrates no acute intracranial process U/S interpreted by me (1pt. min.). @ -None done What testing was considered but not performed or refused? (CT, X-rays, U/S, labs)? Why? @ -None What meds were considered but not given or refused? Why? @ -None Did you discuss the management of the patient with other professionals (professionals i.e. , PA, COMMERCIAL CONSTRUCTION ESTIMATOR, lab, RT, psych nurse, child protective services social worker, wool scourer, teacher, accounts officer, case maker)? Give summary @ -Spoke with Dr. Patel and Dr. Ponce for admission Was smoking cessation discussed for >3mins.? @ -No Was critical care preformed (if so, how long)? @ -yes, 40 minutes for bipap management Were there social determinants of health that impacted care today? How? (Homelessness, low income, unemployed, alcoholism, drug addiction, transportation, low edu. Level, literacy, decrease access to med. care, intermediate, rehab)? @ -No Was there de-escalation of care discussed even if they declined (Discuss DNR or withdrawal of care, Hospice)? DNR status @ -No What co-morbidities impacted this encounter? (DM, HTN, Smoking, COPD, CAD, Cancer, CVA, ARF, Chemo, Hep., AIDS, mental health diagnosis, sleep apnea, morbid obesity)? @ -COPD, CHF Was patient admitted / discharged? Hospital course, mention meds given and route, prescriptions, significant lab abnormalities, going to OR and other pertinent info. @ -Upon arrival patient was placed into trauma 4. Thorough history and physical exam is performed. IV is established. Laboratory studies were conducted.Laboratory studies are remarkable for a CO2 of 75. Lactic acid of 5.5. Troponin 0.037. Chest x-ray demonstrates pneumonia versus atelectasis. X-ray of the hand and hip are negative for acute process. CT of the brain is negative for acute process. Patient is placed on BiPAP due to high CO2 levels. ABG will be obtained one hour after BiPAP administration. Recommended admission. Dr. chato hanson present to the emergency department and evaluates the patient. Patient is being admitted to the floor in stable condition with guarded prognosis Undiagnosed new problem with uncertain prognosis? @ -No Drug Therapy requiring intensive monitoring for toxicity (Heparin, Nitro, Insulin, Cardizem)? @ -No Were any procedures done? @ -No Diagnosis/symptom? @ -Acute encephalopathy, acute exacerbation of chronic respiratory failure, BiPAP dependent respiratory failure, hypercarbia, fall Acute, or Chronic, or Acute on Chronic? @ -Acute Uncomplicated (without systemic symptoms) or Complicated (systemic symptoms)? @ -Complicated Side effects of treatment? @ -No Exacerbation, Progression, or Severe Exacerbation? @ -yes Poses a threat to life or bodily function? How? (Chest pain, [place], [place], pneumonia, PE, COPD, DKA, ARF, appy, cholecystitis, CVA, Diverticulitis, Homicidal, Suicidal, threat to staff... and all critical care pts) @ -Yes patient is suffering from respiratory failure - Lab Data Result diagrams: 08/05/23 11:15 08/05/23 07:44 Lab Results 08/03/23 08/03/23 08/03/23 Range/Units 10:48 10:48 10:48 WBC 12.0 H (3.8-10.6) k/uL RBC 4.78 (3.80-5.40) m/uL Hgb 11.1 L (11.4-16.0) gm/dL Hct 38.1 (34.0-46.0) % MCV 79.7 L (80.0-100.0) fL MCH 23.1 L (25.0-35.0) pg MCHC 29.0 L (31.0-37.0) g/dL RDW 21.6 H (11.5-15.5) % Plt Count 483 H D (150-450) k/uL MPV 9.1 Neutrophils % 82 % Lymphocytes % 9 % Monocytes % 8 % Eosinophils % 0 % Basophils % 0 % Neutrophils # 9.8 H (1.3-7.7) k/uL Lymphocytes # 1.0 (1.0-4.8) k/uL Monocytes # 0.9 (0-1.0) k/uL Eosinophils # 0.0 (0-0.7) k/uL Basophils # 0.1 (0-0.2) k/uL Hypochromasia Marked Poikilocytosis Moderate Anisocytosis Moderate Microcytosis Moderate PT 18.6 H (9.0-12.0) sec INR 1.9 H (<1.2) APTT 21.9 L (22.0-30.0) sec VBG pH (7.31-7.41) VBG pCO2 (37-51) mmHg VBG HCO3 (24-28) mmol/L Sodium 141 (137-145) mmol/L Potassium 3.5 (3.5-5.1) mmol/L Chloride 85 L (98-107) mmol/L Carbon Dioxide 42 H* (22-30) mmol/L Anion Gap 14 mmol/L BUN 38 H (7-17) mg/dL Creatinine 0.69 (0.52-1.04) mg/dL Est GFR (CKD-EPI)AfAm >90 (>60 ml/min/1.73 sqM) Est GFR (CKD-EPI)NonAf >90 (>60 ml/min/1.73 sqM) Glucose 172 H (74-99) mg/dL Lactic Ac Sepsis Rflx Plasma Lactic Acid Jon (0.7-2.0) mmol/L Calcium 8.7 (8.4-10.2) mg/dL Total Bilirubin 0.9 (0.2-1.3) mg/dL AST 59 H (14-36) U/L ALT 25 (4-34) U/L Alkaline Phosphatase 72 (38-126) U/L Troponin I (0.000-0.034) ng/mL Total Protein 5.7 L (6.3-8.2) g/dL Albumin 3.2 L (3.5-5.0) g/dL Urine Color Urine Appearance (Clear) Urine pH (5.0-8.0) Ur Specific [place] (1.001-1.035) Urine Protein (Negative) Urine Glucose (UA) (Negative) Urine Ketones (Negative) Urine Blood (Negative) Urine Nitrite (Negative) Urine Bilirubin (Negative) Urine Urobilinogen (<2.0) mg/dL Ur Leukocyte Esterase (Negative) Urine RBC (0-5) /hpf Urine WBC (0-5) /hpf Ur Squamous Epith Cells (0-4) /hpf Urine Bacteria (None) /hpf Hyaline Casts (0-2) /lpf Urine Opiates Screen (NotDetected) Ur Oxycodone Screen (NotDetected) Urine Methadone Screen (NotDetected) Ur Propoxyphene Screen (NotDetected) Acetaminophen <10.0 ug/mL Ur Barbiturates Screen (NotDetected) U Tricyclic Antidepress (NotDetected) Ur Phencyclidine Scrn (NotDetected) Ur Amphetamines Screen (NotDetected) U Methamphetamines Scrn (NotDetected) U Benzodiazepines Scrn (NotDetected) Urine Cocaine Screen (NotDetected) U Marijuana (THC) Screen (NotDetected) Serum Alcohol <10 mg/dL 08/03/23 08/03/23 08/03/23 Range/Units 10:48 10:48 10:48 WBC (3.8-10.6) k/uL RBC (3.80-5.40) m/uL Hgb (11.4-16.0) gm/dL Hct (34.0-46.0) % MCV (80.0-100.0) fL MCH (25.0-35.0) pg MCHC (31.0-37.0) g/dL RDW (11.5-15.5) % Plt Count (150-450) k/uL MPV Neutrophils % % Lymphocytes % % Monocytes % % Eosinophils % % Basophils % % Neutrophils # (1.3-7.7) k/uL Lymphocytes # (1.0-4.8) k/uL Monocytes # (0-1.0) k/uL Eosinophils # (0-0.7) k/uL Basophils # (0-0.2) k/uL Hypochromasia Poikilocytosis Anisocytosis Microcytosis PT (9.0-12.0) sec INR (<1.2) APTT (22.0-30.0) sec VBG pH 7.41 (7.31-7.41) VBG pCO2 75 H* (37-51) mmHg VBG HCO3 47 H (24-28) mmol/L Sodium (137-145) mmol/L Potassium (3.5-5.1) mmol/L Chloride (98-107) mmol/L Carbon Dioxide (22-30) mmol/L Anion Gap mmol/L BUN (7-17) mg/dL Creatinine (0.52-1.04) mg/dL Est GFR (CKD-EPI)AfAm (>60 ml/min/1.73 sqM) Est GFR (CKD-EPI)NonAf (>60 ml/min/1.73 sqM) Glucose (74-99) mg/dL Lactic Ac Sepsis Rflx Plasma Lactic Acid Jon 5.5 H* (0.7-2.0) mmol/L Calcium (8.4-10.2) mg/dL Total Bilirubin (0.2-1.3) mg/dL AST (14-36) U/L ALT (4-34) U/L Alkaline Phosphatase (38-126) U/L Troponin I 0.037 H* (0.000-0.034) ng/mL Total Protein (6.3-8.2) g/dL Albumin (3.5-5.0) g/dL Urine Color Urine Appearance (Clear) Urine pH (5.0-8.0) Ur Specific [place] (1.001-1.035) Urine Protein (Negative) Urine Glucose (UA) (Negative) Urine Ketones (Negative) Urine Blood (Negative) Urine Nitrite (Negative) Urine Bilirubin (Negative) Urine Urobilinogen (<2.0) mg/dL Ur Leukocyte Esterase (Negative) Urine RBC (0-5) /hpf Urine WBC (0-5) /hpf Ur Squamous Epith Cells (0-4) /hpf Urine Bacteria (None) /hpf Hyaline Casts (0-2) /lpf Urine Opiates Screen (NotDetected) Ur Oxycodone Screen (NotDetected) Urine Methadone Screen (NotDetected) Ur Propoxyphene Screen (NotDetected) Acetaminophen ug/mL Ur Barbiturates Screen (NotDetected) U Tricyclic Antidepress (NotDetected) Ur Phencyclidine Scrn (NotDetected) Ur Amphetamines Screen (NotDetected) U Methamphetamines Scrn (NotDetected) U Benzodiazepines Scrn (NotDetected) Urine Cocaine Screen (NotDetected) U Marijuana (THC) Screen (NotDetected) Serum Alcohol mg/dL 08/03/23 08/03/23 Range/Units 11:16 12:30 WBC (3.8-10.6) k/uL RBC (3.80-5.40) m/uL Hgb (11.4-16.0) gm/dL Hct (34.0-46.0) % MCV (80.0-100.0) fL MCH (25.0-35.0) pg MCHC (31.0-37.0) g/dL RDW (11.5-15.5) % Plt Count (150-450) k/uL MPV Neutrophils % % Lymphocytes % % Monocytes % % Eosinophils % % Basophils % % Neutrophils # (1.3-7.7) k/uL Lymphocytes # (1.0-4.8) k/uL Monocytes # (0-1.0) k/uL Eosinophils # (0-0.7) k/uL Basophils # (0-0.2) k/uL Hypochromasia Poikilocytosis Anisocytosis Microcytosis PT (9.0-12.0) sec INR (<1.2) APTT (22.0-30.0) sec VBG pH (7.31-7.41) VBG pCO2 (37-51) mmHg VBG HCO3 (24-28) mmol/L Sodium (137-145) mmol/L Potassium (3.5-5.1) mmol/L Chloride (98-107) mmol/L Carbon Dioxide (22-30) mmol/L Anion Gap mmol/L BUN (7-17) mg/dL Creatinine (0.52-1.04) mg/dL Est GFR (CKD-EPI)AfAm (>60 ml/min/1.73 sqM) Est GFR (CKD-EPI)NonAf (>60 ml/min/1.73 sqM) Glucose (74-99) mg/dL Lactic Ac Sepsis Rflx Y Plasma Lactic Acid Jon (0.7-2.0) mmol/L Calcium (8.4-10.2) mg/dL Total Bilirubin (0.2-1.3) mg/dL AST (14-36) U/L ALT (4-34) U/L Alkaline Phosphatase (38-126) U/L Troponin I (0.000-0.034) ng/mL Total Protein (6.3-8.2) g/dL Albumin (3.5-5.0) g/dL Urine Color Yellow Urine Appearance Clear (Clear) Urine pH 7.0 (5.0-8.0) Ur Specific [place] 1.018 (1.001-1.035) Urine Protein 1+ H (Negative) Urine Glucose (UA) 3+ H (Negative) Urine Ketones Trace H (Negative) Urine Blood Negative (Negative) Urine Nitrite Negative (Negative) Urine Bilirubin Negative (Negative) Urine Urobilinogen <2.0 (<2.0) mg/dL Ur Leukocyte Esterase Negative (Negative) Urine RBC <1 (0-5) /hpf Urine WBC 3 (0-5) /hpf Ur Squamous Epith Cells 4 (0-4) /hpf Urine Bacteria Rare H (None) /hpf Hyaline Casts 6 H (0-2) /lpf Urine Opiates Screen Detected H (NotDetected) Ur Oxycodone Screen Not Detected (NotDetected) Urine Methadone Screen Not Detected (NotDetected) Ur Propoxyphene Screen Not Detected (NotDetected) Acetaminophen ug/mL Ur Barbiturates Screen Not Detected (NotDetected) U Tricyclic Antidepress Not Detected (NotDetected) Ur Phencyclidine Scrn Not Detected (NotDetected) Ur Amphetamines Screen Not Detected (NotDetected) U Methamphetamines Scrn Not Detected (NotDetected) U Benzodiazepines Scrn Not Detected (NotDetected) Urine Cocaine Screen Not Detected (NotDetected) U Marijuana (THC) Screen Not Detected (NotDetected) Serum Alcohol mg/dL Disposition Clinical Impression: Acute encephalopathy, Hypercarbia, Lactic acidosis, BiPAP (biphasic positive airway pressure) dependence Disposition: ADMITTED IP TO THIS HOSP Condition: Serious Is patient prescribed a controlled substance at d/c from ED?: No Time of Disposition: 14:43 Decision to Admit Reason: Admit from EC Decision Date: 08/03/23 Decision Time: 14:43
[2023-08-03 12:30] LABS: Anion Gap 14 mmol/L; Carbon Dioxide 42 mmol/L (22-30)
[2023-08-03] MEDS ORDERED: NALOXONE 0.4 MG/ML 1 ML VIAL IV PRN (14:43)
[2023-08-03 14:55] LABS: Glucose,Whole Blood 220 mg/dL (70-110)
[2023-08-03] MEDS: IPRATROPIUM-ALBUTEROL 3 ML NEB INHALATION SCH ×2 (16:13→19:45)
[2023-08-03 16:18] LABS: ABG Oxygen Saturation 92.2 % (94-97); ABG PH 7.38 (7.35-7.45); ABG PO2 73 mmHg (83-108); ABG TCO2 60 mmol/L (19-24); Allen Test Performed? Yes
[2023-08-03 16:25] LABS: ABG PCO2 96 mmHg (35-45)
[2023-08-03 16:26] LABS: ABG HCO3 57 mmol/L (21-25)
[2023-08-03 17:00] LABS: Creatine Kinase 77 U/L (30-135)
[2023-08-03 17:10] LABS: NT-Pro-B-Type Natriuretic Pept 7440 pg/mL
[2023-08-03 17:54] LABS: ABG Oxygen Saturation 85.2 % (94-97); ABG PH 7.44 (7.35-7.45); ABG TCO2 58 mmol/L (19-24); Allen Test Performed? Yes
[2023-08-03 17:57] LABS: ABG HCO3 56 mmol/L (21-25); ABG PCO2 83 mmHg (35-45); ABG PO2 56 mmHg (83-108)
[2023-08-03 17:58] LABS: ABG Base Excess 31.2 mmol/L
[2023-08-03] MEDS ORDERED: DEXTROSE 50% SYRINGE 50 ML IVP PRN ×2 (20:29)
[2023-08-03] MEDS ORDERED: ASPIRIN 300 MG SUPP RECTAL SCH (20:45)
[2023-08-03] MEDS ORDERED: levETIRAcetam IV 1,500 MG in SODIUM CHLORIDE 0.9% 250 ML IVPB SCH (21:00)
[2023-08-03 21:35] LABS: Glucose,Whole Blood 159 mg/dL (70-110)
[2023-08-03] MEDS: methylPREDNISolone SOD SUCCI 125 MG/2 ML VIAL IV SCH (21:48)
[2023-08-03] MEDS: levETIRAcetam IV 500 MG/5 ML VIAL IVP SCH (21:48)
[2023-08-03] MEDS: FUROSEMIDE 10 MG/ML 4 ML VIAL IV SCH (21:49)
[2023-08-03] MEDS: INSULIN ASPART (NovoLOG) 100 UNIT/ML VIAL SQ SCH (21:49)
[2023-08-03] MEDS: FAMOTIDINE 20 MG/2 ML VIAL IV SCH (21:50)
--- NOTE | 2023-08-03 23:32 | P.HPIM ---
History of Present Illness This is a pleasant 63 years old female with past medical history of Heart Failure, COPD, Diabetes Mellitus, Eye Disorder, GERD/Reflux, Hyperlipidemia, Hypertension, Osteoarthritis Presents with recurrent falls and altered mental status. Patient cannot provide information was obtained from staff records. On admission she was awake but confused. She could not provide information she wakes up to verbal stimuli answered to her question and then go back to sleep. No family at bedside. Patient presents from home with altered mental status, and she was found on the floor and there is big bruise in the left upper thigh and lower trunk and also in her right hand. X-ray were negative for fractures in these areas. Patient has evidence of wheezing and prolonged expiration on exam She is tachycardic 112, she is saturating 93% on room air and she is afebrile showing mild leukocytosis of 12,000, anemia with 11.1. Elevated platelet count 483. INR 1.9. PH 7.41 pCO2 is 75. Sodium 141, lactic acid is elevated 5.5, creatinine 0.6. Troponin 0.03. Urine analysis is not suspicious for infection Acetaminophen and serum alcohol levels are low. Urine drug screen is negative. EKG showing sinus tachycardia at 111 Chest x-ray showing bilateral basal infiltrates suspicious for pneumonia versus atelectasis. I reviewed the chest x-ray by myself and she has bilateral distal fluffy infiltrates suspicious for pneumonia versus CHF Hip and pelvis x-ray: No fracture And x-ray: No acute osseous deformity CT of the head and neck: No acute fracture or dislocation of the cervical spine. Multilevel degenerative disease. No acute intracranial hemorrhage mass effect or midline shift Review of Systems ROS unobtainable: due to mental status Past Medical History Past Medical History: Heart Failure, COPD, Diabetes Mellitus, Eye Disorder, GERD/Reflux, Hyperlipidemia, Hypertension, Osteoarthritis (OA) Additional Past Medical History / Comment(s): glaucoma. "Knees have been giving out." DDD. gout, lower back and left hip pain History of Any Multi-Drug Resistant Organisms: None Reported Past Surgical History: Back Surgery, Section, Cholecystectomy, Tubal Ligation Additional Past Surgical History / Comment(s): MARBIN PLACED FOR SCOLIOSIS as child. mult left breast biopsy, Past Anesthesia/Blood Transfusion Reactions: No Reported Reaction Past Psychological History: No Psychological Hx Reported Smoking Status: Current every day smoker Past Alcohol Use History: None Reported Past Drug Use History: None Reported - Past Family History Brother(s) Family Medical History: Diabetes Mellitus Mother Family Medical History: Cancer Father Family Medical History: Cancer Medications and Allergies Home Medications Medication Instructions Recorded Confirmed Type Cyclobenzaprine [Flexeril] 10 mg PO HS 07/11/14 08/03/23 History Omeprazole [PriLOSEC] 20 mg PO DAILY 08/05/14 08/03/23 History Fenofibrate 160 mg PO DAILY 05/27/16 08/03/23 History allopurinoL [Allopurinol] 100 mg PO DAILY 05/27/16 08/03/23 History Glimepiride [Amaryl] 8 mg PO DAILY 06/28/17 08/03/23 History rOPINIRole HCL [Requip] 0.25 mg PO HS 06/02/18 08/03/23 History Atorvastatin [Lipitor] 80 mg PO HS 01/21/22 08/03/23 History Empagliflozin [Jardiance] 25 mg PO DAILY 01/21/22 08/03/23 History Ergocalciferol (Vitamin D2) 1,250 mcg PO MO 01/21/22 08/03/23 History [Drisdol (50,000 Iu)] Magnesium Oxide [Magox 400] 400 mg PO BID 01/21/22 08/03/23 History Pregabalin [Lyrica] 150 mg PO BID 01/21/22 08/03/23 History metFORMIN HCL [Glucophage] 1,000 mg PO BID 01/21/22 08/03/23 History HYDROcodone/APAP 5-325MG [[place] 1 tab PO BID PRN 04/08/23 08/03/23 History 5-325] Potassium Chloride 10 meq PO DAILY 04/08/23 08/03/23 History levETIRAcetam [Keppra] 1,500 mg PO BID 04/08/23 08/03/23 History Insulin Detemir [Levemir Flexpen] 8 units SQ BID #3 each 04/18/23 08/03/23 Rx Nicotine 21Mg/24Hr Patch [Habitrol] 1 patch TRANSDERM DAILY #4 patch 04/18/23 08/03/23 Rx Budesonide-Formot 160-4.5 Mcg 2 puff INHALATION RT-BID 30 Days 05/13/23 08/03/23 Rx [Symbicort 160-4.5 Mcg Inhaler] #1 each Furosemide [Lasix] 40 mg PO DAILY #60 tab 06/24/23 08/03/23 Rx Metoprolol Tartrate [Lopressor] 25 mg PO BID #60 tab 06/24/23 08/03/23 Rx Spironolactone [Aldactone] 25 mg PO DAILY #30 tab 06/24/23 08/03/23 Rx Albuterol Inhaler [Ventolin Hfa 2 puff INHALATION RT-Q6H PRN 08/03/23 08/03/23 History Inhaler] Allergies Allergy/AdvReac Type Severity Reaction Status Date / Time codeine AdvReac Severe Abdominal Verified 08/03/23 12:16 Pain Physical Exam Vitals: Vital Signs Temp Pulse Resp Pulse Ox 08/03/23 10:54 97.7 F 112 H 16 93 L Intake and Output 08/02/23 08/03/23 08/03/23 22:59 06:59 14:59 Output Total 350 Balance -350 Output: Urine 350 Uretheral (Cardoza) 350 Other: Weight 90.718 kg -GENERAL: The patient confused and very drowsy, she opens eyes to verbal stimuli and go back to sleep, not in any acute distress. Well developed, well nourished. HEENT: Pupils are round and equally reacting to light. EOMI. No scleral icterus. No conjunctival pallor. Normocephalic, atraumatic. No pharyngeal erythema. No thyromegaly. CARDIOVASCULAR: S1 and S2 present. No murmurs, rubs, or gallops. PULMONARY: Chest is clear to auscultation, no wheezing , no crackles. ABDOMEN: Soft, nontender, nondistended, normoactive bowel sounds. No palpable organomegaly. MUSCULOSKELETAL: No joint swelling or deformity. EXTREMITIES: No cyanosis, clubbing, or pedal edema. NEUROLOGICAL: Gross neurological examination did not reveal any focal deficits. -SKIN: No rashes. no petechiae. The bruise over the left upper thigh and buttock and right hand Results CBC & Chem 7: 08/03/23 10:48 08/03/23 10:48 Labs: Abnormal Lab Results - Last 24 Hours (Table) 08/03/23 08/03/23 08/03/23 Range/Units 10:48 10:48 10:48 WBC 12.0 H (3.8-10.6) k/uL Hgb 11.1 L (11.4-16.0) gm/dL MCV 79.7 L (80.0-100.0) fL MCH 23.1 L (25.0-35.0) pg MCHC 29.0 L (31.0-37.0) g/dL RDW 21.6 H (11.5-15.5) % Plt Count 483 H D (150-450) k/uL Neutrophils # 9.8 H (1.3-7.7) k/uL PT 18.6 H (9.0-12.0) sec INR 1.9 H (<1.2) APTT 21.9 L (22.0-30.0) sec VBG pCO2 (37-51) mmHg VBG HCO3 (24-28) mmol/L Chloride 85 L (98-107) mmol/L Carbon Dioxide 42 H* (22-30) mmol/L BUN 38 H (7-17) mg/dL Glucose 172 H (74-99) mg/dL Plasma Lactic Acid Jon (0.7-2.0) mmol/L AST 59 H (14-36) U/L Troponin I (0.000-0.034) ng/mL Total Protein 5.7 L (6.3-8.2) g/dL Albumin 3.2 L (3.5-5.0) g/dL Urine Protein (Negative) Urine Glucose (UA) (Negative) Urine Ketones (Negative) Urine Bacteria (None) /hpf Hyaline Casts (0-2) /lpf Urine Opiates Screen (NotDetected) 08/03/23 08/03/23 08/03/23 Range/Units 10:48 10:48 10:48 WBC (3.8-10.6) k/uL Hgb (11.4-16.0) gm/dL MCV (80.0-100.0) fL MCH (25.0-35.0) pg MCHC (31.0-37.0) g/dL RDW (11.5-15.5) % Plt Count (150-450) k/uL Neutrophils # (1.3-7.7) k/uL PT (9.0-12.0) sec INR (<1.2) APTT (22.0-30.0) sec VBG pCO2 75 H* (37-51) mmHg VBG HCO3 47 H (24-28) mmol/L Chloride (98-107) mmol/L Carbon Dioxide (22-30) mmol/L BUN (7-17) mg/dL Glucose (74-99) mg/dL Plasma Lactic Acid Jon 5.5 H* (0.7-2.0) mmol/L AST (14-36) U/L Troponin I 0.037 H* (0.000-0.034) ng/mL Total Protein (6.3-8.2) g/dL Albumin (3.5-5.0) g/dL Urine Protein (Negative) Urine Glucose (UA) (Negative) Urine Ketones (Negative) Urine Bacteria (None) /hpf Hyaline Casts (0-2) /lpf Urine Opiates Screen (NotDetected) 08/03/23 Range/Units 11:16 WBC (3.8-10.6) k/uL Hgb (11.4-16.0) gm/dL MCV (80.0-100.0) fL MCH (25.0-35.0) pg MCHC (31.0-37.0) g/dL RDW (11.5-15.5) % Plt Count (150-450) k/uL Neutrophils # (1.3-7.7) k/uL PT (9.0-12.0) sec INR (<1.2) APTT (22.0-30.0) sec VBG pCO2 (37-51) mmHg VBG HCO3 (24-28) mmol/L Chloride (98-107) mmol/L Carbon Dioxide (22-30) mmol/L BUN (7-17) mg/dL Glucose (74-99) mg/dL Plasma Lactic Acid Jon (0.7-2.0) mmol/L AST (14-36) U/L Troponin I (0.000-0.034) ng/mL Total Protein (6.3-8.2) g/dL Albumin (3.5-5.0) g/dL Urine Protein 1+ H (Negative) Urine Glucose (UA) 3+ H (Negative) Urine Ketones Trace H (Negative) Urine Bacteria Rare H (None) /hpf Hyaline Casts 6 H (0-2) /lpf Urine Opiates Screen Detected H (NotDetected) Assessment and Plan Assessment: Acute CHF exacerbation Acute COPD exacerbation Data troponin most likely secondary to hypoxia rule out cardiac causes Diabetes mellitus Hypertension Hyperlipidemia Obesity with BMI of 34.3. Plan: Continue with BiPAP therapy IV Lasix IV Solu-Medrol Aspirin is a started Cardiology and pulmonary consult Labs and medication were reviewed.. Continue same treatment. Continue with symptomatic treatment. Resume home medication. Monitor labs and vitals. DVT and GI prophylaxis. Further recommendations as per clinical course of the patient DVT prophylaxis: Subcutaneous heparin GI Prophylaxis: Pepcid PT/OT: Pending Prognosis is guarded
[2023-08-04] MEDS: IPRATROPIUM-ALBUTEROL 3 ML NEB INHALATION SCH ×6 (00:25→21:12)
[2023-08-04] MEDS: HEPARIN SODIUM,PORCINE 5,000 UNIT/ML 1 ML VIAL SQ SCH ×4 (01:02→23:39)
[2023-08-04] MEDS: INSULIN ASPART (NovoLOG) 100 UNIT/ML VIAL SQ SCH ×5 (01:04→20:42)
[2023-08-04] MEDS: methylPREDNISolone SOD SUCCI 125 MG/2 ML VIAL IV SCH ×5 (01:04→23:39)
[2023-08-04 01:05] LABS: Glucose,Whole Blood 177 mg/dL (70-110)
[2023-08-04] MEDS ORDERED: AZITHROMYCIN 500 MG in SODIUM CHLORIDE 0.9% 250 ML IVPB ONE ×2 (04:30→12:00)
--- NOTE | 2023-08-04 04:41 | P.CNPUL ---
History of Present Illness Consult date: 08/04/23 Requesting physician: Arthur Ponce Reason for consult: dyspnea Chief complaint: Altered mental status and fall History of present illness: I am seeing this patient in new consultation today is 08/04/2023 for acute hypoxemic and hypercapnic respiratory failure on BiPAP. Shis is currently in the emergency room, awaiting a bed on the Cardiac floor. Patient is a 62-year-old white female with past medical history significant for oxygen dependent COPD, congestive heart failure, hypertension, dyslipidemia, type 2 diabetes mellitus, glaucoma, chronic low back pain, and chronic and ongoing tobacco dependence. She has had multiple recent hospital admissions this year for similar issues. Patient is currently lethargic, and I'm unable to elicit much information from her. Apparently, the patient was brought into the hospital by EMS after being found down on the bed room floor at her home. She was confused and possibly remained there overnight. She does have bruising on her left hip and right arm. Patient had an extensive workup on arrival to the emergency room. CT of the brain and C-spine without contrast showed no acute intracranial hemorrhage or mass effect, no fracture or dislocation of the C-spine. X-rays of the right hip and and right hand showed no acute fractures. Patient is currently sitting up in bed, she is lethargic, on BiPAP with settings 16/5 and FiO2 of 35%. respi ratory rate is currently 12 breaths per minute, and she achieves tidal volumes around 600 ml. She opens her eyes to vigorous verbal stimulation, but quickly goes back to sleep. Most recent ABG shows pO2 of 56, pCO2 83, and pH of 7.44. Chest x-ray on arrival showed bibasilar atelectasis versus infiltrate. There was cardiomegaly with mild pulmonary vascular congestion. CBC shows some mild leukocytosis with a WBC count of 12, hemoglobin 11.1, hematocrit 38.1, platelets 483. BMP shows sodium of 141, potassium 3.5, chloride 85, serum bicarb 42, BUN 38, creatinine 0.69, glucose 172. Procalcitonin level was elevated at 0.26. Troponin was mildly elevated and trending up at 0.037, 0.125, and 0.141 respectively. NT proBNP was elevated at 7400. Urinalysis not concerning for UTI. Urine toxicology screen positive for opiates. Patient's prognosis is guarded related to above-mentioned comorbidities. Review of Systems ROS unobtainable: due to mental status Past Medical History Past Medical History: Heart Failure, COPD, Diabetes Mellitus, Eye Disorder, GERD/Reflux, Hyperlipidemia, Hypertension, Osteoarthritis (OA) Additional Past Medical History / Comment(s): glaucoma. "Knees have been giving out." DDD. gout, lower back and left hip pain History of Any Multi-Drug Resistant Organisms: None Reported Past Surgical History: Back Surgery, Section, Cholecystectomy, Tubal Ligation Additional Past Surgical History / Comment(s): MARBIN PLACED FOR SCOLIOSIS as child. mult left breast biopsy, Past Anesthesia/Blood Transfusion Reactions: No Reported Reaction Past Psychological History: No Psychological Hx Reported Smoking Status: Current every day smoker Past Alcohol Use History: None Reported Additional Past Alcohol Use History / Comment(s): Has been smoking since 14 yrs old, > 1 PPD. Past Drug Use History: None Reported - Past Family History Brother(s) Family Medical History: Diabetes Mellitus Mother Family Medical History: Cancer Father Family Medical History: Cancer Medications and Allergies Home Medications Medication Instructions Recorded Confirmed Type Cyclobenzaprine [Flexeril] 10 mg PO HS 07/11/14 08/03/23 History Omeprazole [PriLOSEC] 20 mg PO DAILY 08/05/14 08/03/23 History Fenofibrate 160 mg PO DAILY 05/27/16 08/03/23 History allopurinoL [Allopurinol] 100 mg PO DAILY 05/27/16 08/03/23 History Glimepiride [Amaryl] 8 mg PO DAILY 06/28/17 08/03/23 History rOPINIRole HCL [Requip] 0.25 mg PO HS 06/02/18 08/03/23 History Atorvastatin [Lipitor] 80 mg PO HS 01/21/22 08/03/23 History Empagliflozin [Jardiance] 25 mg PO DAILY 01/21/22 08/03/23 History Ergocalciferol (Vitamin D2) 1,250 mcg PO MO 01/21/22 08/03/23 History [Drisdol (50,000 Iu)] Magnesium Oxide [Magox 400] 400 mg PO BID 01/21/22 08/03/23 History Pregabalin [Lyrica] 150 mg PO BID 01/21/22 08/03/23 History metFORMIN HCL [Glucophage] 1,000 mg PO BID 01/21/22 08/03/23 History HYDROcodone/APAP 5-325MG [[place] 1 tab PO BID PRN 04/08/23 08/03/23 History 5-325] Potassium Chloride 10 meq PO DAILY 04/08/23 08/03/23 History levETIRAcetam [Keppra] 1,500 mg PO BID 04/08/23 08/03/23 History Insulin Detemir [Levemir Flexpen] 8 units SQ BID #3 each 04/18/23 08/03/23 Rx Nicotine 21Mg/24Hr Patch [Habitrol] 1 patch TRANSDERM DAILY #4 patch 04/18/23 08/03/23 Rx Budesonide-Formot 160-4.5 Mcg 2 puff INHALATION RT-BID 30 Days 05/13/23 08/03/23 Rx [Symbicort 160-4.5 Mcg Inhaler] #1 each Furosemide [Lasix] 40 mg PO DAILY #60 tab 06/24/23 08/03/23 Rx Metoprolol Tartrate [Lopressor] 25 mg PO BID #60 tab 06/24/23 08/03/23 Rx Spironolactone [Aldactone] 25 mg PO DAILY #30 tab 06/24/23 08/03/23 Rx Albuterol Inhaler [Ventolin Hfa 2 puff INHALATION RT-Q6H PRN 08/03/23 08/03/23 History Inhaler] Allergies Allergy/AdvReac Type Severity Reaction Status Date / Time codeine AdvReac Severe Abdominal Verified 08/03/23 12:16 Pain Physical Exam Vitals: Vital Signs Temp Pulse Pulse Resp BP Pulse Ox FiO2 08/04/23 03:41 79 35 08/04/23 02:00 83 12 08/04/23 00:36 84 08/04/23 00:25 84 35 08/04/23 00:00 83 12 126/82 90 L 35 08/03/23 20:00 97.4 F L 82 13 120/107 95 35 08/03/23 19:59 92 L 35 08/03/23 19:58 86 08/03/23 19:46 89 35 08/03/23 18:50 95 11 L 114/68 96 35 08/03/23 18:14 89 15 119/59 97 35 08/03/23 16:47 90 13 132/71 98 35 08/03/23 16:34 35 08/03/23 16:25 93 08/03/23 16:15 93 08/03/23 16:10 93 12 133/77 95 40 08/03/23 15:19 97.6 F 93 12 138/95 97 40 08/03/23 14:21 40 08/03/23 14:20 40 08/03/23 10:54 97.7 F 112 H 16 93 L Intake and Output 08/03/23 08/03/23 08/04/23 14:59 22:59 06:59 Output Total 350 300 Balance -350 -300 Output: Urine 350 300 Uretheral (Cardoza) 350 Other: Voiding Method Indwelling Catheter Indwelling Catheter Weight 90.718 kg 90.718 kg GENERAL EXAM: Lethargic, 63-year-old white female, who is disheveled, on BiPAP HEAD: Normocephalic and atraumatic EYES: Normal reaction of pupils, equal size. NOSE: Clear with pink turbinates. THROAT: No erythema or exudates. NECK: No masses, no JVD. CHEST: No chest wall deformity. LUNGS: Equal air entry with markedly diminished lung sounds throughout and mild expiratory wheezes. On BiPAP. No conversational dyspnea or accessory muscle use.. CVS: S1 and S2 normal with no audible murmur, regular rhythm. No extra heart so unds ABDOMEN: No hepatosplenomegaly, active bowel sounds, no guarding or rigidity. SPINE: No scoliosis or deformity SKIN: Ecchymosis of left hip and right forearm. CENTRAL NERVOUS SYSTEM: No focal deficits, tone is normal in all 4 extremities. EXTREMITIES: There is 2-3+ bilateral lower extremity pitting edema. No clubbing, or cyanosis. Peripheral pulses are intact. Results - Laboratory Findings CBC and BMP: 08/03/23 10:48 08/03/23 10:48 ABG ABG pH 7.44 (7.35-7.45) 08/03/23 17:50 ABG pCO2 83 mmHg (35-45) H* 08/03/23 17:50 ABG pO2 56 mmHg (83-108) L* 08/03/23 17:50 ABG O2 Saturation 85.2 % (94-97) L 08/03/23 17:50 PT/INR, D-dimer PT 18.6 sec (9.0-12.0) H 08/03/23 10:48 INR 1.9 (<1.2) H 08/03/23 10:48 Abnormal lab findings: Abnormal Labs 08/03/23 08/03/23 08/03/23 10:48 10:48 10:48 WBC 12.0 H Hgb 11.1 L MCV 79.7 L MCH 23.1 L MCHC 29.0 L RDW 21.6 H Plt Count 483 H D Neutrophils # 9.8 H PT 18.6 H INR 1.9 H APTT 21.9 L ABG pCO2 ABG pO2 ABG HCO3 ABG Total CO2 ABG O2 Saturation VBG pCO2 VBG HCO3 Chloride 85 L Carbon Dioxide 42 H* BUN 38 H Glucose 172 H POC Glucose (mg/dL) Plasma Lactic Acid Jon AST 59 H Troponin I Total Protein 5.7 L Albumin 3.2 L Procalcitonin Urine Protein Urine Glucose (UA) Urine Ketones Urine Bacteria Hyaline Casts Urine Opiates Screen 08/03/23 08/03/23 08/03/23 10:48 10:48 10:48 WBC Hgb MCV MCH MCHC RDW Plt Count Neutrophils # PT INR APTT ABG pCO2 ABG pO2 ABG HCO3 ABG Total CO2 ABG O2 Saturation VBG pCO2 75 H* VBG HCO3 47 H Chloride Carbon Dioxide BUN Glucose POC Glucose (mg/dL) Plasma Lactic Acid Jon 5.5 H* AST Troponin I 0.037 H* Total Protein Albumin Procalcitonin Urine Protein Urine Glucose (UA) Urine Ketones Urine Bacteria Hyaline Casts Urine Opiates Screen 08/03/23 08/03/23 08/03/23 11:16 14:51 15:24 WBC Hgb MCV MCH MCHC RDW Plt Count Neutrophils # PT INR APTT ABG pCO2 ABG pO2 ABG HCO3 ABG Total CO2 ABG O2 Saturation VBG pCO2 VBG HCO3 Chloride Carbon Dioxide BUN Glucose POC Glucose (mg/dL) 220 H Plasma Lactic Acid Jon AST Troponin I 0.125 H* Total Protein Albumin Procalcitonin Urine Protein 1+ H Urine Glucose (UA) 3+ H Urine Ketones Trace H Urine Bacteria Rare H Hyaline Casts 6 H Urine Opiates Screen Detected H 08/03/23 08/03/23 08/03/23 16:14 17:50 18:23 WBC Hgb MCV MCH MCHC RDW Plt Count Neutrophils # PT INR APTT ABG pCO2 96 H* 83 H* ABG pO2 73 L 56 L* ABG HCO3 57 H* 56 H* ABG Total CO2 60 H 58 H ABG O2 Saturation 92.2 L 85.2 L VBG pCO2 VBG HCO3 Chloride Carbon Dioxide BUN Glucose POC Glucose (mg/dL) Plasma Lactic Acid Jon AST Troponin I 0.141 H* Total Protein Albumin Procalcitonin Urine Protein Urine Glucose (UA) Urine Ketones Urine Bacteria Hyaline Casts Urine Opiates Screen 08/03/23 08/03/23 08/04/23 18:23 21:33 01:03 WBC Hgb MCV MCH MCHC RDW Plt Count Neutrophils # PT INR APTT ABG pCO2 ABG pO2 ABG HCO3 ABG Total CO2 ABG O2 Saturation VBG pCO2 VBG HCO3 Chloride Carbon Dioxide BUN Glucose POC Glucose (mg/dL) 159 H 177 H Plasma Lactic Acid Jon AST Troponin I Total Protein Albumin Procalcitonin 0.26 H Urine Protein Urine Glucose (UA) Urine Ketones Urine Bacteria Hyaline Casts Urine Opiates Screen - Diagnostic Findings Chest x-ray: image reviewed Assessment and Plan Assessment: Acute hypoxemic and hypercapnic respiratory failure currently on BiPAP, Chest x- ray on arrival showed bibasilar atelectasis versus infiltrates. There was cardiomegaly with mild pulmonary vascular congestion. NT proBNP was elevated at 7400 Acute exacerbation of chronic obstructive pulmonary disease Acute exacerbation of diastolic congestive heart failure Frequent falls Altered mental status, probably related to metabolic encephalopathy and hypercapnic respiratory failure Chronic hypoxemic respiratory failure Chronic ongoing nicotine dependence Diabetes mellitus type 2 Benign essential hypertension Hyperlipidemia Osteoarthritis Plan: Patient's medications, labs, chest x-ray reviewed Continue DuoNeb inhalations and IV Solu-Medrol Add formoterol and budesonide inhalation Continue BiPAP with current settings Procalcitonin level was elevated at 0.26, empiric antibiotics added Continue with IV diuretics Patient has had frequent hospital admissions, I'm unsure if she is able to take care of herself at home, and may benefit from placement. Patient's overall prognosis is guarded We will continue to follow I have personally seen and examined the patient, performed the documentation and the assessment and plan as written. Number of minutes spent on the visit:20 Time with Patient: Greater than 30
[2023-08-04] MEDS ORDERED: HALOPERIDOL LACTATE 5 MG/ML 1 ML VIAL IVP PRN (05:28)
[2023-08-04] MEDS ORDERED: HALOPERIDOL LACTATE 5 MG/ML 1 ML VIAL IVP ONE (05:29)
[2023-08-04 05:57] LABS: ABG Base Excess 27.6 mmol/L; ABG Oxygen Saturation 87.7 % (94-97); ABG PH 7.46 (7.35-7.45); ABG TCO2 54 mmol/L (19-24); Allen Test Performed? Yes; Glucose,Whole Blood 173 mg/dL (70-110)
[2023-08-04 06:04] LABS: ABG HCO3 52 mmol/L (21-25); ABG PCO2 73 mmHg (35-45); ABG PO2 57 mmHg (83-108)
[2023-08-04] MEDS ORDERED: SYMBICORT 160-4.5 MCG INHALER INHALATION SCH (08:00)
[2023-08-04 08:15] LABS: African American GFR (CKD) >90 (>60 ml/min/1.73 sqM); Blood Urea Nitrogen 33 mg/dL (7-17); Calcium 8.4 mg/dL (8.4-10.2); Chloride 86 mmol/L (98-107); Creatine Kinase 36 U/L (30-135); Glucose 146 mg/dL (74-99); Non-African American GFR(CKD) >90 (>60 ml/min/1.73 sqM); Sodium 141 mmol/L (137-145)
[2023-08-04 08:22] LABS: Anion Gap 13 mmol/L
--- NOTE | 2023-08-04 08:28 | P.PN ---
Subjective This is a pleasant 63 years old female with past medical history of Heart Failure, COPD, Diabetes Mellitus, Eye Disorder, GERD/Reflux, Hyperlipidemia, Hypertension, Osteoarthritis Presents with recurrent falls and altered mental status. Patient cannot provide information was obtained from staff records. On admission she was awake but confused. She could not provide information she wakes up to verbal stimuli answered to her question and then go back to sleep. No family at bedside. Patient presents from home with altered mental status, and she was found on the floor and there is big bruise in the left upper thigh and lower trunk and also i n her right hand. X-ray were negative for fractures in these areas. Patient has evidence of wheezing and prolonged expiration on exam She is tachycardic 112, she is saturating 93% on room air and she is afebrile showing mild leukocytosis of 12,000, anemia with 11.1. Elevated platelet count 483. INR 1.9. PH 7.41 pCO2 is 75. Sodium 141, lactic acid is elevated 5.5, creatinine 0.6. Troponin 0.03. Urine analysis is not suspicious for infection Acetaminophen and serum alcohol levels are low. Urine drug screen is negative. EKG showing sinus tachycardia at 111 Chest x-ray showing bilateral basal infiltrates suspicious for pneumonia versus atelectasis. I reviewed the chest x-ray by myself and she has bilateral distal fluffy infiltrates suspicious for pneumonia versus CHF Hip and pelvis x-ray: No fracture And x-ray: No acute osseous deformity CT of the head and neck: No acute fracture or dislocation of the cervical spine. Multilevel degenerative disease. No acute intracranial hemorrhage mass effect or midline shift 08/04/2023 earlier this morning I received a call from the bedside nurse while the patient was on 25 in the emergency room (on hold for 3 S. floor) the patient was agitated and trying to take her mask. We gave her Haldol and that's help her come down, and asked her to check her ABG showing hypoxia with pO2 about 57 therefore we increase her FiO2 and the BiPAP from 35% into the new level of 60%. Currently lying in bed the confused and cannot provide information problem because of her hypoxia and the Haldol she received in the emergency room. She is afebrile and other Vitas looks stable. Labs from today Are still pending. She remains on ceftriaxone, Zithromax, IV Lasix 40 mg daily and Solu-Medrol at 60 mg. Also she is receiving aspirin 150 mg rectally. We will discontinue subcutaneous heparin because of her high INR 1.9 for chemotherapy and keep monitoring. Review of system: Patient cannot provide information Active Medications Generic Name Dose Route Start Last Admin Trade Name Freq PRN Reason Stop Dose Admin Albuterol/Ipratropium 3 ml 08/03/23 16:00 08/04/23 03:41 Ipratropium-Albuterol 3 Ml Neb INHALATION 3 ml RT-Q4H HAYDEN Administration Allopurinol 100 mg 08/04/23 09:00 Allopurinol 100 Mg Tab PO DAILY HAYDEN Aspirin 150 mg 08/04/23 09:00 Aspirin 300 Mg Supp RECTAL DAILY HAYDEN Budesonide 1 mg 08/04/23 08:00 Budesonide 1 Mg/2 Ml Nebu INHALATION RT-BID HAYDEN Dextrose/Water 25 ml 08/03/23 20:29 Dextrose 50% Syringe 50 Ml IVP PER PROTOCOL PRN Hypoglycemia Protocol Dextrose/Water 50 ml 08/03/23 20:29 Dextrose 50% Syringe 50 Ml IVP PER PROTOCOL PRN Hypoglycemia Protocol Famotidine 20 mg 08/03/23 21:00 08/03/23 21:50 Famotidine 20 Mg/2 Ml Vial IV 20 mg Q12HR HAYDEN Administration Formoterol Fumarate 20 mcg 08/04/23 08:00 Formoterol Fumarate 20 Mcg/2 Ml Nebu INHALATION RT-BID HAYDEN Furosemide 40 mg 08/03/23 20:45 08/03/23 21:49 Furosemide 10 Mg/Ml 4 Ml Vial IV 40 mg DAILY HAYDEN Administration Heparin Sodium (Porcine) 5,000 unit 08/04/23 00:00 08/04/23 01:02 Heparin Sodium,Porcine 5,000 Unit/Ml 1 Ml Vial SQ Not Given Q8HR HAYDEN Ceftriaxone Sodium 1 gm/ 50 mls @ 100 mls/hr 08/04/23 04:30 08/04/23 06:04 Sodium Chloride IVPB 100 mls/hr Q24H HAYDEN Administration Protocol Azithromycin 500 mg/ Sodium 250 mls @ 250 mls/hr 08/04/23 12:00 Chloride IVPB 08/04/23 12:59 ONCE ONE Protocol Insulin Aspart 0 unit 08/03/23 20:30 08/04/23 06:05 Insulin Aspart (Novolog) 100 Unit/Ml Vial SQ 1 unit Q6HR HAYDEN Administration Protocol Levetiracetam 1,500 mg 08/03/23 21:00 08/03/23 21:48 Levetiracetam Iv 500 Mg/5 Ml Vial IVP 1,500 mg Q12HR HAYDEN Administration Methylprednisolone Sodium Succinate 60 mg 08/03/23 20:45 08/04/23 06:05 Methylprednisolone Sod Succi 125 Mg/2 Ml Vial IV 60 mg Q6HR HAYDEN Administration Naloxone HCl 0.2 mg 08/03/23 14:43 Naloxone 0.4 Mg/Ml 1 Ml Vial IV Q2M PRN Opioid Reversal Objective - Vital Signs Vital signs: Vital Signs Temp 97.4 F L 08/03/23 20:00 Pulse 79 08/04/23 04:00 Resp 12 08/04/23 04:00 BP 118/79 08/04/23 04:00 Pulse Ox 93 L 08/04/23 04:00 FiO2 35 08/04/23 04:00 Intake & Output 08/03/23 08/04/23 08/04/23 18:59 06:59 18:59 Output Total 658 462 6407 Balance -350 -300 -1700 Weight 90.718 kg 90.718 kg Output: Urine [id number] Uretheral ([place]ardo[place]) 350 Other: Voiding Method Indwelling Catheter Indwelling Catheter - Exam -GENERAL: The patient is sleepy this morning (she got intravenous hold off for agitated 1-2 hours earlier). On BiPAP HEENT: Pupils are round and equally reacting to light. EOMI. No scleral icterus. No conjunctival pallor. Normocephalic, atraumatic. No pharyngeal erythema. No thyromegaly. CARDIOVASCULAR: S1 and S2 present. No murmurs, rubs, or gallops. -PULMONARY: Chest is clear to auscultation, bilateral limited air entry, expiratory wheezing , no crackles. ABDOMEN: Soft, nontender, nondistended, normoactive bowel sounds. No palpable organomegaly. MUSCULOSKELETAL: No joint swelling or deformity. EXTREMITIES: No cyanosis, clubbing, or pedal edema. NEUROLOGICAL: Gross neurological examination did not reveal any focal deficits. -SKIN: No rashes. no petechiae. Bruise on the left hip and buttock area and right hand stable - Labs CBC & Chem 7: 08/03/23 10:48 08/03/23 10:48 Labs: Abnormal Lab Results - Last 24 Hours (Table) 08/03/23 08/03/23 08/03/23 Range/Units 10:48 10:48 10:48 WBC 12.0 H (3.8-10.6) k/uL Hgb 11.1 L (11.4-16.0) gm/dL MCV 79.7 L (80.0-100.0) fL MCH 23.1 L (25.0-35.0) pg MCHC 29.0 L (31.0-37.0) g/dL RDW 21.6 H (11.5-15.5) % Plt Count 483 H D (150-450) k/uL Neutrophils # 9.8 H (1.3-7.7) k/uL PT 18.6 H (9.0-12.0) sec INR 1.9 H (<1.2) APTT 21.9 L (22.0-30.0) sec ABG pH (7.35-7.45) ABG pCO2 (35-45) mmHg ABG pO2 (83-108) mmHg ABG HCO3 (21-25) mmol/L ABG Total CO2 (19-24) mmol/L ABG O2 Saturation (94-97) % VBG pCO2 (37-51) mmHg VBG HCO3 (24-28) mmol/L Chloride 85 L (98-107) mmol/L Carbon Dioxide 42 H* (22-30) mmol/L BUN 38 H (7-17) mg/dL Glucose 172 H (74-99) mg/dL POC Glucose (mg/dL) (70-110) mg/dL Plasma Lactic Acid Jon (0.7-2.0) mmol/L AST 59 H (14-36) U/L Troponin I (0.000-0.034) ng/mL Total Protein 5.7 L (6.3-8.2) g/dL Albumin 3.2 L (3.5-5.0) g/dL Procalcitonin (0.02-0.09) ng/mL Urine Protein (Negative) Urine Glucose (UA) (Negative) Urine Ketones (Negative) Urine Bacteria (None) /hpf Hyaline Casts (0-2) /lpf Urine Opiates Screen (NotDetected) 0908/03/23 08/03/23 Range/Units 10:48 10:48 10:48 WBC (3.8-10.6) k/uL Hgb (11.4-16.0) gm/dL MCV (80.0-100.0) fL MCH (25.0-35.0) pg MCHC (31.0-37.0) g/dL RDW (11.5-15.5) % Plt Count (150-450) k/uL Neutrophils # (1.3-7.7) k/uL PT (9.0-12.0) sec INR (<1.2) APTT (22.0-30.0) sec ABG pH (7.35-7.45) ABG pCO2 (35-45) mmHg ABG pO2 (83-108) mmHg ABG HCO3 (21-25) mmol/L ABG Total CO2 (19-24) mmol/L ABG O2 Saturation (94-97) % VBG pCO2 75 H* (37-51) mmHg VBG HCO3 47 H (24-28) mmol/L Chloride (98-107) mmol/L Carbon Dioxide (22-30) mmol/L BUN (7-17) mg/dL Glucose (74-99) mg/dL POC Glucose (mg/dL) (70-110) mg/dL Plasma Lactic Acid Jon 5.5 H* (0.7-2.0) mmol/L AST (14-36) U/L Troponin I 0.037 H* (0.000-0.034) ng/mL Total Protein (6.3-8.2) g/dL Albumin (3.5-5.0) g/dL Procalcitonin (0.02-0.09) ng/mL Urine Protein (Negative) Urine Glucose (UA) (Negative) Urine Ketones (Negative) Urine Bacteria (None) /hpf Hyaline Casts (0-2) /lpf Urine Opiates Screen (NotDetected) 08/03/23 08/03/23 08/03/23 Range/Units 11:16 14:51 15:24 WBC (3.8-10.6) k/uL Hgb (11.4-16.0) gm/dL MCV (80.0-100.0) fL MCH (25.0-35.0) pg MCHC (31.0-37.0) g/dL RDW (11.5-15.5) % Plt Count (150-450) k/uL Neutrophils # (1.3-7.7) k/uL PT (9.0-12.0) sec INR (<1.2) APTT (22.0-30.0) sec ABG pH (7.35-7.45) ABG pCO2 (35-45) mmHg ABG pO2 (83-108) mmHg ABG HCO3 (21-25) mmol/L ABG Total CO2 (19-24) mmol/L ABG O2 Saturation (94-97) % VBG pCO2 (37-51) mmHg VBG HCO3 (24-28) mmol/L Chloride (98-107) mmol/L Carbon Dioxide (22-30) mmol/L BUN (7-17) mg/dL Glucose (74-99) mg/dL POC Glucose (mg/dL) 220 H (70-110) mg/dL Plasma Lactic Acid Jon (0.7-2.0) mmol/L AST (14-36) U/L Troponin I 0.125 H* (0.000-0.034) ng/mL Total Protein (6.3-8.2) g/dL Albumin (3.5-5.0) g/dL Procalcitonin (0.02-0.09) ng/mL Urine Protein 1+ H (Negative) Urine Glucose (UA) 3+ H (Negative) Urine Ketones Trace H (Negative) Urine Bacteria Rare H (None) /hpf Hyaline Casts 6 H (0-2) /lpf Urine Opiates Screen Detected H (NotDetected) 08/03/23 08/03/23 08/03/23 Range/Units 16:14 17:50 18:23 WBC (3.8-10.6) k/uL Hgb (11.4-16.0) gm/dL MCV (80.0-100.0) fL MCH (25.0-35.0) pg MCHC (31.0-37.0) g/dL RDW (11.5-15.5) % Plt Count (150-450) k/uL Neutrophils # (1.3-7.7) k/uL PT (9.0-12.0) sec INR (<1.2) APTT (22.0-30.0) sec ABG pH (7.35-7.45) ABG pCO2 96 H* 83 H* (35-45) mmHg ABG pO2 73 L 56 L* (83-108) mmHg ABG HCO3 57 H* 56 H* (21-25) mmol/L ABG Total CO2 60 H 58 H (19-24) mmol/L ABG O2 Saturation 92.2 L 85.2 L (94-97) % VBG pCO2 (37-51) mmHg VBG HCO3 (24-28) mmol/L Chloride (98-107) mmol/L Carbon Dioxide (22-30) mmol/L BUN (7-17) mg/dL Glucose (74-99) mg/dL POC Glucose (mg/dL) (70-110) mg/dL Plasma Lactic Acid Jon (0.7-2.0) mmol/L AST (14-36) U/L Troponin I 0.141 H* (0.000-0.034) ng/mL Total Protein (6.3-8.2) g/dL Albumin (3.5-5.0) g/dL Procalcitonin (0.02-0.09) ng/mL Urine Protein (Negative) Urine Glucose (UA) (Negative) Urine Ketones (Negative) Urine Bacteria (None) /hpf Hyaline Casts (0-2) /lpf Urine Opiates Screen (NotDetected) 08/03/23 08/03/23 08/04/23 Range/Units 18:23 21:33 01:03 WBC (3.8-10.6) k/uL Hgb (11.4-16.0) gm/dL MCV (80.0-100.0) fL MCH (25.0-35.0) pg MCHC (31.0-37.0) g/dL RDW (11.5-15.5) % Plt Count (150-450) k/uL Neutrophils # (1.3-7.7) k/uL PT (9.0-12.0) sec INR (<1.2) APTT (22.0-30.0) sec ABG pH (7.35-7.45) ABG pCO2 (35-45) mmHg ABG pO2 (83-108) mmHg ABG HCO3 (21-25) mmol/L ABG Total CO2 (19-24) mmol/L ABG O2 Saturation (94-97) % VBG pCO2 (37-51) mmHg VBG HCO3 (24-28) mmol/L Chloride (98-107) mmol/L Carbon Dioxide (22-30) mmol/L BUN (7-17) mg/dL Glucose (74-99) mg/dL POC Glucose (mg/dL) 159 H 177 H (70-110) mg/dL Plasma Lactic Acid Jon (0.7-2.0) mmol/L AST (14-36) U/L Troponin I (0.000-0.034) ng/mL Total Protein (6.3-8.2) g/dL Albumin (3.5-5.0) g/dL Procalcitonin 0.26 H (0.02-0.09) ng/mL Urine Protein (Negative) Urine Glucose (UA) (Negative) Urine Ketones (Negative) Urine Bacteria (None) /hpf Hyaline Casts (0-2) /lpf Urine Opiates Screen (NotDetected) 08/04/23 08/04/23 Range/Units 05:55 05:55 WBC (3.8-10.6) k/uL Hgb (11.4-16.0) gm/dL MCV (80.0-100.0) fL MCH (25.0-35.0) pg MCHC (31.0-37.0) g/dL RDW (11.5-15.5) % Plt Count (150-450) k/uL Neutrophils # (1.3-7.7) k/uL PT (9.0-12.0) sec INR (<1.2) APTT (22.0-30.0) sec ABG pH 7.46 H (7.35-7.45) ABG pCO2 73 H* (35-45) mmHg ABG pO2 57 L* (83-108) mmHg ABG HCO3 52 H* (21-25) mmol/L ABG Total CO2 54 H (19-24) mmol/L ABG O2 Saturation 87.7 L (94-97) % VBG pCO2 (37-51) mmHg VBG HCO3 (24-28) mmol/L Chloride (98-107) mmol/L Carbon Dioxide (22-30) mmol/L BUN (7-17) mg/dL Glucose (74-99) mg/dL POC Glucose (mg/dL) 173 H (70-110) mg/dL Plasma Lactic Acid Jon (0.7-2.0) mmol/L AST (14-36) U/L Troponin I (0.000-0.034) ng/mL Total Protein (6.3-8.2) g/dL Albumin (3.5-5.0) g/dL Procalcitonin (0.02-0.09) ng/mL Urine Protein (Negative) Urine Glucose (UA) (Negative) Urine Ketones (Negative) Urine Bacteria (None) /hpf Hyaline Casts (0-2) /lpf Urine Opiates Screen (NotDetected) Assessment and Plan Assessment: Acute CHF exacerbation Acute COPD exacerbation elevated troponin most likely secondary to hypoxia rule out cardiac causes coagulopathy with INR 1.9 on admission Diabetes mellitus Hypertension Hyperlipidemia Obesity with BMI of 34.3. Plan: Continue with BiPAP therapy IV Lasix IV Solu-Medrol Aspirin is a started Cardiology and pulmonary consult monitor INR Labs and medication were reviewed.. Continue same treatment. Continue with symptomatic treatment. Resume home medication. Monitor labs and vitals. DVT and GI prophylaxis. Further recommendations as per clinical course of the patient DVT prophylaxis: hold Subcutaneous heparin or high inr GI Prophylaxis: Pepcid PT/OT: deferred Prognosis is guarded
[2023-08-04] MEDS: FORMOTEROL FUMARATE 20 MCG/2 ML NEBU INHALATION SCH ×2 (08:29→21:12)
[2023-08-04] MEDS: BUDESONIDE 1 MG/2 ML NEBU INHALATION SCH ×2 (08:29→21:12)
[2023-08-04 08:34] LABS: Carbon Dioxide 42 mmol/L (22-30); Potassium 2.6 mmol/L (3.5-5.1)
[2023-08-04 08:41] LABS: Anisocytosis Moderate; Basophils % (A) 0 %; Eosinophils % (A) 0 %; HCT 36.5 % (34.0-46.0); HGB 10.6 gm/dL (11.4-16.0); Hypochromasia Marked; Lymphocytes # (A) 0.5 k/uL (1.0-4.8); Lymphocytes % (A) 4 %; MCH 23.2 pg (25.0-35.0); MCHC 29.2 g/dL (31.0-37.0); MCV 79.6 fL (80.0-100.0); Mean Platelet Volume 9.6; Microcytosis Moderate; Monocytes # (A) 0.4 k/uL (0-1.0); Monocytes % (A) 3 %; Neutrophils # (A) 12.3 k/uL (1.3-7.7); Neutrophils % (A) 92 %; Platelet Count 350 k/uL (150-450); Poikilocytosis Slight; RBC 4.58 m/uL (3.80-5.40); RDW 21.5 % (11.5-15.5); WBC 13.4 k/uL (3.8-10.6)
[2023-08-04] MEDS: FAMOTIDINE 20 MG/2 ML VIAL IV SCH ×2 (09:47→20:42)
[2023-08-04] MEDS: levETIRAcetam IV 500 MG/5 ML VIAL IVP SCH ×2 (09:47→20:42)
[2023-08-04] MEDS: FUROSEMIDE 10 MG/ML 4 ML VIAL IV SCH (09:47)
[2023-08-04] MEDS: ASPIRIN 300 MG SUPP RECTAL SCH (09:48)
[2023-08-04] MEDS: allopurinoL 100 MG TAB PO SCH (09:49)
[2023-08-04] MEDS ORDERED: Potassium Replacement Protocol 1 EACH MISC MISCELLANE PRN (10:23)
[2023-08-04] MEDS ORDERED: Magnesium Replacement Protocol 1 EACH MISC MISCELLANE PRN (10:23)
--- NOTE | 2023-08-04 12:09 | P.CRDCN ---
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 Patient was brought into the hospital due to altered mental status and she had a fall during the middle of the night. The patient apparently laid on the ground overnight. She was initially complaining of right hip pain. Patient is now seen on BiPAP but not responsive to verbal stimuli. Patient was seen in the emergency center waiting for a bed on the cardiac stepdown unit. We have been asked to evaluate the patient for elevated troponin. ER chart has been reviewed. No complaints of chest pain. She has started treatment for COPD exacerbation and acute on chronic hypoxic and hypercapnic respiratory failure. EKG sinus rhythm with no acute ST changes. Chest x-ray: Bibasilar infiltrates correlate for atelectasis or pneumonia. WBC 13.4, hemoglobin 10.6, platelet count 350. Potassium 2.6, sodium 141 CO2 42, BUN 33 and creatinine 0.6. Blood sugar 146. Hemoglobin A1c 7.4. Troponins 0.037, 0.125, 0.141. ProBNP 7440. Pro-calcitonin 0.26. Urine drug screen positive for opiates. Acetaminophen negative and serum alcohol negative. Home cardiac medications: Atorvastatin 80 mg at bedtime, Lasix 40 mg daily, magnesium oxide 400 mg twice daily, Lopressor 25 mg twice daily, spironolactone 25 mg daily. Echocardiogram obtained 05/11/2023 revealed preserved LV size and systolic function. Mildly dilated right ventricle. Moderate tricuspid regurgitation. Review Of Systems: At the time of my evaluation: Constitutional: No fever, no chills. No weakness, fatigue or lethargy. EENT: No headache. No dizziness. Lungs: No shortness of breath, cough, no sputum production. No wheezing. Cardiovascular: No chest pain, no lower extremity edema. No palpitations. No paroxysmal nocturnal dyspnea. No orthopnea. No lightheadedness or dizziness. No syncopal episodes. Abdominal: No abdominal pain. No nausea, vomiting. No diarrhea. No constipation. No bloody or tarry stools. Genitourinary: No dysuria.. No urinary retention. Musculoskeletal: No myalgias. No muscle weakness, no frequent falls. No back pain. No neck pain. Integumentary: No wounds. No rash. No unusual bruising. Neurologic: No aphasia. No facial droop. No change in mentation. No head injury. No headache. Physical examination: Gen: This is a obese 63-year-old female on ER stretcher VS: reviewed HEENT: Head is atraumatic, normocephalic. Pupils equal, round. Sclerae is anicteric. NECK: Supple. No JVD. . LUNGS: Diminished air entry. No intercostal retractions. HEART: Regular rate and rhythm. No murmur. ABDOMEN: Soft No tenderness. EXTREMITIES: No pedal edema. No calf tenderness. NEUROLOGICAL: Patient is obtunded. Assessment: Elevated troponins, type II myocardia ischemia secondary to COPD exacerbation and respiratory failure Acute hypoxic and hypercapnic respiratory failure on BiPAP Acute exacerbation of COPD Possible component of acute diastolic heart failure Metabolic encephalopathy Tobacco use and dependence Diabetes mellitus type 2 Hypertension Hyperlipidemia Plan: Resume patient's home cardiac medications No need to repeat echocardiogram Cardiology will sign off this case and follow on an as-needed basis. Please reconsult for any new concerns. Patient may follow-up in the office in one to 2 weeks. Thank you kindly for this consultation. Nurse practitioner note has been reviewed, I agree with documented findings and plan of care. Patient was seen and examined. Past Medical History Past Medical History: Heart Failure, COPD, Diabetes Mellitus, Eye Disorder, GERD/Reflux, Hyperlipidemia, Hypertension, Osteoarthritis (OA) Additional Past Medical History / Comment(s): glaucoma. "Knees have been giving out." DDD. gout, lower back and left hip pain History of Any Multi-Drug Resistant Organisms: None Reported Past Surgical History: Back Surgery, Section, Cholecystectomy, Tubal Ligation Additional Past Surgical History / Comment(s): MARBIN PLACED FOR SCOLIOSIS as child. mult left breast biopsy, Past Anesthesia/Blood Transfusion Reactions: No Reported Reaction Past Psychological History: No Psychological Hx Reported Smoking Status: Current every day smoker Past Alcohol Use History: None Reported Additional Past Alcohol Use History / Comment(s): Has been smoking since 14 yrs old, > 1 PPD. Past Drug Use History: None Reported - Past Family History Brother(s) Family Medical History: Diabetes Mellitus Mother Family Medical History: Cancer Father Family Medical History: Cancer Medications and Allergies Home Medications Medication Instructions Recorded Confirmed Type Cyclobenzaprine [Flexeril] 10 mg PO HS 07/11/14 08/03/23 History Omeprazole [PriLOSEC] 20 mg PO DAILY 08/05/14 08/03/23 History Fenofibrate 160 mg PO DAILY 05/27/16 08/03/23 History allopurinoL [Allopurinol] 100 mg PO DAILY 05/27/16 08/03/23 History Glimepiride [Amaryl] 8 mg PO DAILY 06/28/17 08/03/23 History rOPINIRole HCL [Requip] 0.25 mg PO HS 06/02/18 08/03/23 History Atorvastatin [Lipitor] 80 mg PO HS 01/21/22 08/03/23 History Empagliflozin [Jardiance] 25 mg PO DAILY 01/21/22 08/03/23 History Ergocalciferol (Vitamin D2) 1,250 mcg PO MO 01/21/22 08/03/23 History [Drisdol (50,000 Iu)] Magnesium Oxide [Magox 400] 400 mg PO BID 01/21/22 08/03/23 History Pregabalin [Lyrica] 150 mg PO BID 01/21/22 08/03/23 History metFORMIN HCL [Glucophage] 1,000 mg PO BID 01/21/22 08/03/23 History HYDROcodone/APAP 5-325MG [[place] 1 tab PO BID PRN 04/08/23 08/03/23 History 5-325] Potassium Chloride 10 meq PO DAILY 04/08/23 08/03/23 History levETIRAcetam [Keppra] 1,500 mg PO BID 04/08/23 08/03/23 History Insulin Detemir [Levemir Flexpen] 8 units SQ BID #3 each 04/18/23 08/03/23 Rx Nicotine 21Mg/24Hr Patch [Habitrol] 1 patch TRANSDERM DAILY #4 patch 04/18/23 08/03/23 Rx Budesonide-Formot 160-4.5 Mcg 2 puff INHALATION RT-BID 30 Days 05/13/23 08/03/23 Rx [Symbicort 160-4.5 Mcg Inhaler] #1 each Furosemide [Lasix] 40 mg PO DAILY #60 tab 06/24/23 08/03/23 Rx Metoprolol Tartrate [Lopressor] 25 mg PO BID #60 tab 06/24/23 08/03/23 Rx Spironolactone [Aldactone] 25 mg PO DAILY #30 tab 06/24/23 08/03/23 Rx Albuterol Inhaler [Ventolin Hfa 2 puff INHALATION RT-Q6H PRN 08/03/23 08/03/23 History Inhaler] Allergies Allergy/AdvReac Type Severity Reaction Status Date / Time codeine AdvReac Severe Abdominal Verified 08/03/23 12:16 Pain Physical Exam Vitals: Vital Signs Temp Pulse Pulse Resp BP Pulse Ox FiO2 08/04/23 04:00 79 12 118/79 93 L 35 08/04/23 03:51 90 08/04/23 03:41 79 35 08/04/23 02:00 83 12 08/04/23 00:36 84 08/04/23 00:25 84 35 08/04/23 00:00 83 12 126/82 90 L 35 08/03/23 20:00 97.4 F L 82 13 120/107 95 35 08/03/23 19:59 92 L 35 08/03/23 19:58 86 08/03/23 19:46 89 35 08/03/23 18:50 95 11 L 114/68 96 35 08/03/23 18:14 89 15 119/59 97 35 08/03/23 16:47 90 13 132/71 98 35 08/03/23 16:34 35 08/03/23 16:25 93 08/03/23 16:15 93 08/03/23 16:10 93 12 133/77 95 40 08/03/23 15:19 97.6 F 93 12 138/95 97 40 08/03/23 14:21 40 08/03/23 14:20 40 08/03/23 10:54 97.7 F 112 H 16 93 L Intake and Output 08/03/23 08/04/23 08/04/23 22:59 06:59 14:59 Output Total 300 1700 Balance -300 -1700 Output: Urine 300 1700 Other: Voiding Method Indwelling Catheter Indwelling Catheter Weight 90.718 kg Results 08/04/23 07:50 08/04/23 07:50 Cardiac Enzymes 08/03/23 08/03/23 08/03/23 Range/Units 10:48 10:48 15:24 AST 59 H (14-36) U/L Troponin I 0.037 H* 0.125 H* (0.000-0.034) ng/mL 08/03/23 Range/Units 18:23 AST (14-36) U/L Troponin I 0.141 H* (0.000-0.034) ng/mL Coagulation 08/03/23 Range/Units 10:48 PT 18.6 H (9.0-12.0) sec APTT 21.9 L (22.0-30.0) sec CBC 08/03/23 Range/Units 10:48 WBC 12.0 H (3.8-10.6) k/uL RBC 4.78 (3.80-5.40) m/uL Hgb 11.1 L (11.4-16.0) gm/dL Hct 38.1 (34.0-46.0) % Plt Count 483 H D (150-450) k/uL Comprehensive Metabolic Panel 08/03/23 Range/Units 10:48 Sodium 141 (137-145) mmol/L Potassium 3.5 (3.5-5.1) mmol/L Chloride 85 L (98-107) mmol/L Carbon Dioxide 42 H* (22-30) mmol/L BUN 38 H (7-17) mg/dL Creatinine 0.69 (0.52-1.04) mg/dL Glucose 172 H (74-99) mg/dL Calcium 8.7 (8.4-10.2) mg/dL AST 59 H (14-36) U/L ALT 25 (4-34) U/L Alkaline Phosphatase 72 (38-126) U/L Total Protein 5.7 L (6.3-8.2) g/dL Albumin 3.2 L (3.5-5.0) g/dL Current Medications Generic Name Dose Route Start Last Admin Trade Name Freq PRN Reason Stop Dose Admin Albuterol/Ipratropium 3 ml 08/03/23 16:00 08/04/23 03:41 Ipratropium-Albuterol 3 Ml Neb INHALATION 3 ml RT-Q4H HAYDEN Administration Allopurinol 100 mg 08/04/23 09:00 Allopurinol 100 Mg Tab PO DAILY HAYDEN Aspirin 150 mg 08/04/23 09:00 Aspirin 300 Mg Supp RECTAL DAILY HAYDEN Budesonide 1 mg 08/04/23 08:00 Budesonide 1 Mg/2 Ml Nebu INHALATION RT-BID HAYDEN Dextrose/Water 25 ml 08/03/23 20:29 Dextrose 50% Syringe 50 Ml IVP PER PROTOCOL PRN Hypoglycemia Protocol Dextrose/Water 50 ml 08/03/23 20:29 Dextrose 50% Syringe 50 Ml IVP PER PROTOCOL PRN Hypoglycemia Protocol Famotidine 20 mg 08/03/23 21:00 08/03/23 21:50 Famotidine 20 Mg/2 Ml Vial IV 20 mg Q12HR HAYDEN Administration Formoterol Fumarate 20 mcg 08/04/23 08:00 Formoterol Fumarate 20 Mcg/2 Ml Nebu INHALATION RT-BID HAYDEN Furosemide 40 mg 08/03/23 20:45 08/03/23 21:49 Furosemide 10 Mg/Ml 4 Ml Vial IV 40 mg DAILY HAYDEN Administration Heparin Sodium (Porcine) 5,000 unit 08/04/23 00:00 08/04/23 01:02 Heparin Sodium,Porcine 5,000 Unit/Ml 1 Ml Vial SQ Not Given Q8HR [facility] Ceftriaxone Sodium 1 gm/ 50 mls @ 100 mls/hr 08/04/23 04:30 08/04/23 06:04 Sodium Chloride IVPB 100 mls/hr Q24H [facility] Administration Protocol Azithromycin 500 mg/ Sodium 250 mls @ 250 mls/hr 08/04/23 12:00 Chloride IVPB 08/04/23 12:59 ONCE ONE Protocol Insulin Aspart 0 unit 08/03/23 20:30 08/04/23 06:05 Insulin Aspart (Novolog) 100 Unit/Ml Vial SQ 1 unit Q6HR [facility] Administration Protocol Levetiracetam 1,500 mg 08/03/23 21:00 08/03/23 21:48 Levetiracetam Iv 500 Mg/5 Ml Vial IVP 1,500 mg Q12HR [facility] Administration Methylprednisolone Sodium Succinate 60 mg 08/03/23 20:45 08/04/23 06:05 Methylprednisolone Sod Succi 125 Mg/2 Ml Vial IV 60 mg Q6HR [facility] Administration Naloxone HCl 0.2 mg 08/03/23 14:43 Naloxone 0.4 Mg/Ml 1 Ml Vial IV Q2M PRN Opioid Reversal Intake and Output 08/03/23 08/04/23 08/04/23 22:59 06:59 14:59 Output Total 300 1700 Balance -300 -1700 Output: Urine 300 1700 Other: Voiding Method Indwelling Catheter Indwelling Catheter Weight 90.718 kg 08/03/23 10:48 08/03/23 10:48
[2023-08-04] MEDS: POTASSIUM CHLORIDE 10 MEQ in WATER FOR INJECTION 1 100ML.BAG IVPB SCH ×6 (12:36→20:45)
[2023-08-04 12:39] LABS: Glucose,Whole Blood 135 mg/dL (70-110)
[2023-08-04 16:35] LABS: Magnesium 1.3 mg/dL (1.6-2.3)
[2023-08-04 16:38] LABS: Potassium 2.7 mmol/L (3.5-5.1)
[2023-08-04 16:54] LABS: Glucose,Whole Blood 190 mg/dL (70-110)
[2023-08-04 19:53] LABS: Glucose,Whole Blood 345 mg/dL (70-110)
[2023-08-04 23:38] LABS: Glucose,Whole Blood 306 mg/dL (70-110)
[2023-08-05] MEDS: IPRATROPIUM-ALBUTEROL 3 ML NEB INHALATION SCH ×6 (00:48→21:47)
[2023-08-05 02:15] LABS: % Iron Saturation 6.11 (12.00-45.00); Ferritin 12.5 ng/mL (10.0-291.0); Iron 22 UG/DL (50-170); Total Iron Binding Capacity 360 UG/DL (228-460)
[2023-08-05 06:18] LABS: Glucose,Whole Blood 262 mg/dL (70-110)
[2023-08-05] MEDS: INSULIN ASPART (NovoLOG) 100 UNIT/ML VIAL SQ SCH ×4 (06:58→21:21)
[2023-08-05] MEDS: methylPREDNISolone SOD SUCCI 125 MG/2 ML VIAL IV SCH ×3 (06:58→17:31)
[2023-08-05] MEDS: BUDESONIDE 1 MG/2 ML NEBU INHALATION SCH ×2 (08:33→21:47)
[2023-08-05] MEDS: FORMOTEROL FUMARATE 20 MCG/2 ML NEBU INHALATION SCH ×2 (08:33→21:47)
[2023-08-05] MEDS: FAMOTIDINE 20 MG/2 ML VIAL IV SCH ×2 (09:12→21:30)
[2023-08-05] MEDS: HEPARIN SODIUM,PORCINE 5,000 UNIT/ML 1 ML VIAL SQ SCH ×2 (09:13→15:57)
[2023-08-05] MEDS: levETIRAcetam IV 500 MG/5 ML VIAL IVP SCH ×2 (09:13→21:27)
[2023-08-05] MEDS: FUROSEMIDE 10 MG/ML 4 ML VIAL IV SCH (09:13)
[2023-08-05 10:15] LABS: INR 1.3 (<1.2); Prothrombin Time 13.2 sec (9.0-12.0)
[2023-08-05 10:23] LABS: African American GFR (CKD) >90 (>60 ml/min/1.73 sqM); Blood Urea Nitrogen 36 mg/dL (7-17); Calcium 8.4 mg/dL (8.4-10.2); Chloride 86 mmol/L (98-107); Creatine Kinase 30 U/L (30-135); Glucose 216 mg/dL (74-99); Magnesium 1.5 mg/dL (1.6-2.3); Non-African American GFR(CKD) >90 (>60 ml/min/1.73 sqM); Potassium 3.6 mmol/L (3.5-5.1); Sodium 140 mmol/L (137-145)
[2023-08-05 10:33] LABS: Anion Gap 15 mmol/L
[2023-08-05 11:06] LABS: Carbon Dioxide 39 mmol/L (22-30)
[2023-08-05 11:26] LABS: Anisocytosis Moderate; Basophils % (A) 0 %; Eosinophils % (A) 0 %; HCT 36.8 % (34.0-46.0); HGB 10.4 gm/dL (11.4-16.0); Hypochromasia Marked; Lymphocytes # (A) 0.3 k/uL (1.0-4.8); Lymphocytes % (A) 4 %; MCH 23.1 pg (25.0-35.0); MCHC 28.3 g/dL (31.0-37.0); MCV 81.9 fL (80.0-100.0); Mean Platelet Volume 8.2; Microcytosis Slight; Monocytes # (A) 0.4 k/uL (0-1.0); Monocytes % (A) 4 %; Neutrophils # (A) 7.7 k/uL (1.3-7.7); Neutrophils % (A) 91 %; Platelet Count 183 k/uL (150-450); Poikilocytosis Moderate; RDW 21.1 % (11.5-15.5); WBC 8.5 k/uL (3.8-10.6)
[2023-08-05 12:22] LABS: Glucose,Whole Blood 244 mg/dL (70-110)
[2023-08-05] MEDS: allopurinoL 100 MG TAB PO SCH (12:29)
--- NOTE | 2023-08-05 13:04 | P.PN ---
Subjective Progress Note Date: 08/05/23 Principal diagnosis: Shortness of breath. I am seeing this patient in new consultation today is 08/04/2023 for acute hypoxemic and hypercapnic respiratory failure on BiPAP. Shijen is currently in the emergency room, awaiting a bed on the Cardiac floor. Patient is a 62-year-old white female with past medical history significant for oxygen dependent COPD, congestive heart failure, hypertension, dyslipidemia, type 2 diabetes mellitus, glaucoma, chronic low back pain, and chronic and ongoing tobacco dependence. She has had multiple recent hospital admissions this year for similar issues. Patient is currently lethargic, and I'm unable to elicit much information from her. Apparently, the patient was brought into the hospital by EMS after being found down on the bed room floor at her home. She was confused and possibly remained there overnight. She does have bruising on her left hip and right arm. Patient had an extensive workup on arrival to the emergency room. CT of the brain and C-spine without contrast showed no acute intracranial hemorrhage or mass effect, no fracture or dislocation of the C-spine. X-rays of the right hip and and right hand showed no acute fractures. Patient is currently sitting up in bed, she is lethargic, on BiPAP with settings 16/5 and FiO2 of 35%. respiratory rate is currently 12 breaths per minute, and she achieves tidal volumes around 600 ml. She opens her eyes to vigorous verbal stimulation, but quickly goes back to sleep. Most recent ABG shows pO2 of 56, pCO2 83, and pH of 7.44. Chest x-ray on arrival showed bibasilar atelectasis versus infiltrate. There was cardiomegaly with mild pulmonary vascular congestion. CBC shows some mild leukocytosis with a WBC count of 12, hemoglobin 11.1, hematocrit 38.1, platelets 483. BMP shows sodium of 141, potassium 3.5, chloride 85, serum bicarb 42, BUN 38, creatinine 0.69, glucose 172. Procalcitonin level was elevated at 0.26. Troponin was mildly elevated and trending up at 0.037, 0.125, and 0.141 respectively. NT proBNP was elevated at 7400. Urinalysis not concerning for UTI. Urine toxicology screen positive for opiates. Patient's prognosis is guarded related to above-mentioned comorbidities. Progress note dated 08/05/2023. The patient is seen today in room 367. Currently, the patient's on BiPAP, with settings of 17/5, and 50%. The patient continues on Rocephin, and azithromycin. She has a history of oxygen-dependent COPD, CHF, hypertension, hyperlipidemia, diabetes, glaucoma, chronic low back pain, and chronic and ongoing tobacco dependence. The patient was seen yesterday in consultation. Currently labs include a white count 8.5, hemoglobin 10.4, hematocrit 36.8, and a normal platelet count. Sodium 140, potassium 3.6, chlorides 86, CO2 39, BUN 36, creatinine 0.61. Chest x-ray revealed bibasilar infiltrates or atelectasis. N- terminal proBNP was elevated at greater than 7000. Pro-calcitonin level was elevated at 0.26. Objective - Vital Signs Vital signs: Vital Signs Temp 98.7 F 08/05/23 11:46 Pulse 100 08/05/23 12:13 Resp 16 08/05/23 11:46 BP 123/82 08/05/23 11:46 Pulse Ox 96 08/05/23 11:46 FiO2 50 08/05/23 11:46 Intake & Output 08/04/23 08/05/23 08/05/23 18:59 06:59 18:59 Output Total 1700 400 950 Balance -1700 -400 -950 Output: Urine 1700 400 950 Other: Voiding Method Indwelling Catheter Indwelling Catheter Indwelling Catheter - Exam No acute distress, oriented 3. Currently on BiPAP. No obvious respiratory distress. HEENT examination is grossly unremarkable. Neck supple. Full range of motion. No adenopathy thyromegaly or neck vein distention. Cardiovascular examination reveals regular rhythm rate. S1-S2 normal. No S3 or S4. No discernible murmur noted. Heart sounds are distant. Heart rate 100 bpm. Lungs reveal coarse bilateral inspiratory and expiratory rhonchi and wheezes. Breath sounds equal. Minimal basilar crackles. Saturations are 96%. Abdomen soft bowel sounds are heard. No masses or tenderness. Extremities are intact. No cyanosis clubbing or edema. Skin is without rash or lesion. Neurologic examination is brief but nonfocal. - Labs CBC & Chem 7: 08/05/23 11:15 08/05/23 07:44 Labs: Abnormal Lab Results - Last 24 Hours (Table) 08/04/23 08/04/23 08/04/23 Range/Units 07:50 15:53 16:51 Hgb (11.4-16.0) gm/dL MCH (25.0-35.0) pg MCHC (31.0-37.0) g/dL RDW (11.5-15.5) % Lymphocytes # (1.0-4.8) k/uL PT (9.0-12.0) sec INR (<1.2) APTT (22.0-30.0) sec Potassium 2.7 L* (3.5-5.1) mmol/L Chloride (98-107) mmol/L Carbon Dioxide (22-30) mmol/L BUN (7-17) mg/dL Glucose (74-99) mg/dL POC Glucose (mg/dL) 190 H (70-110) mg/dL Magnesium 1.3 L (1.6-2.3) mg/dL Iron 22 L (50-170) UG/DL % Saturation 6.11 L (12.00-45.00) 08/04/23 08/04/23 08/05/23 Range/Units 19:51 23:37 06:17 Hgb (11.4-16.0) gm/dL MCH (25.0-35.0) pg MCHC (31.0-37.0) g/dL RDW (11.5-15.5) % Lymphocytes # (1.0-4.8) k/uL PT (9.0-12.0) sec INR (<1.2) APTT (22.0-30.0) sec Potassium (3.5-5.1) mmol/L Chloride (98-107) mmol/L Carbon Dioxide (22-30) mmol/L BUN (7-17) mg/dL Glucose (74-99) mg/dL POC Glucose (mg/dL) 345 H 306 H 262 H (70-110) mg/dL Magnesium (1.6-2.3) mg/dL Iron (50-170) UG/DL % Saturation (12.00-45.00) 08/05/23 08/05/23 08/05/23 Range/Units 07:44 07:44 11:15 Hgb 10.4 L (11.4-16.0) gm/dL MCH 23.1 L (25.0-35.0) pg MCHC 28.3 L (31.0-37.0) g/dL RDW 21.1 H (11.5-15.5) % Lymphocytes # 0.3 L (1.0-4.8) k/uL PT 13.2 H (9.0-12.0) sec INR 1.3 H (<1.2) APTT 20.0 L (22.0-30.0) sec Potassium (3.5-5.1) mmol/L Chloride 86 L (98-107) mmol/L Carbon Dioxide 39 H (22-30) mmol/L BUN 36 H (7-17) mg/dL Glucose 216 H (74-99) mg/dL POC Glucose (mg/dL) (70-110) mg/dL Magnesium 1.5 L (1.6-2.3) mg/dL Iron (50-170) UG/DL % Saturation (12.00-45.00) 08/05/23 Range/Units 12:19 Hgb (11.4-16.0) gm/dL MCH (25.0-35.0) pg MCHC (31.0-37.0) g/dL RDW (11.5-15.5) % Lymphocytes # (1.0-4.8) k/uL PT (9.0-12.0) sec INR (<1.2) APTT (22.0-30.0) sec Potassium (3.5-5.1) mmol/L Chloride (98-107) mmol/L Carbon Dioxide (22-30) mmol/L BUN (7-17) mg/dL Glucose (74-99) mg/dL POC Glucose (mg/dL) 244 H (70-110) mg/dL Magnesium (1.6-2.3) mg/dL Iron (50-170) UG/DL % Saturation (12.00-45.00) Assessment and Plan Assessment: Acute hypoxemic and hypercapnic respiratory failure currently on BiPAP, Chest x- ray on arrival showed bibasilar atelectasis versus infiltrates. There was cardiomegaly with mild pulmonary vascular congestion. NT proBNP was elevated at 7400. Acute exacerbation of chronic obstructive pulmonary disease. Acute exacerbation of diastolic congestive heart failure. Frequent falls. Altered mental status, probably related to metabolic encephalopathy and hypercapnic respiratory failure. Chronic hypoxemic respiratory failure. Chronic ongoing nicotine dependence. Diabetes mellitus type 2. Benign essential hypertension. Hyperlipidemia. Osteoarthritis. Plan: Plan dated 08/05/2023. The patient is seen today in room 367. She remains on BiPAP, with settings of 17/5, and 50%. The patient also remains on Rocephin and azithromycin for possible pneumonia. The patient's N-terminal proBNP was greater than 7000. Likely her acute hypoxemic respiratory failure is multifactorial, in part related to COPD exacerbation, fluid overload, and possible pneumonia. We will continue to follow and make recommendations along the way. Prognosis is guarded. She does feel better today. Time with Patient: Less than 30
[2023-08-05] MEDS ORDERED: Magnesium Replacement Protocol 1 EACH MISC MISCELLANE PRN (14:21)
--- NOTE | 2023-08-05 15:25 | P.PN ---
Subjective Progress Note Date: 08/05/23 63 years old female with past medical history of Heart Failure, COPD, Diabetes Mellitus, Eye Disorder, GERD/Reflux, Hyperlipidemia, Hypertension, Osteoarthritis Presents with recurrent falls and altered mental status. Patient cannot provide information was obtained from staff records. On admission she was awake but confused. She could not provide information she wakes up to verbal stimuli answered to her question and then go back to sleep. No family at bedside. Patient presents from home with altered mental status, and she was found on the floor and there is big bruise in the left upper thigh and lower trunk and also in her right hand. X-ray were negative for fractures in these areas. Patient has evidence of wheezing and prolonged expiration on exam She is tachycardic 112, she is saturating 93% on room air and she is afebrile showing mild leukocytosis of 12,000, anemia with 11.1. Elevated platelet count 483. INR 1.9. PH 7.41 pCO2 is 75. Sodium 141, lactic acid is elevated 5.5, creatinine 0.6. Troponin 0.03. Urine analysis is not suspicious for infection Acetaminophen and serum alcohol levels are low. Urine drug screen is negative. EKG showing sinus tachycardia at 111 Chest x-ray showing bilateral basal infiltrates suspicious for pneumonia versus atelectasis. I reviewed the chest x-ray by myself and she has bilateral distal fluffy infiltrates suspicious for pneumonia versus CHF Hip and pelvis x-ray: No fracture And x-ray: No acute osseous deformity CT of the head and neck: No acute fracture or dislocation of the cervical spine. Multilevel degenerative disease. No acute intracranial hemorrhage mass effect or midline shift Objective - Vital Signs Vital signs: Vital Signs Temp 98 F 08/04/23 20:00 Pulse 92 08/05/23 09:05 Resp 13 08/05/23 04:00 BP 109/68 08/05/23 04:00 Pulse Ox 91 L 08/05/23 04:00 FiO2 50 08/05/23 08:33 Intake & Output 08/04/23 08/05/23 08/05/23 18:59 06:59 18:59 Output Total 1700 400 Balance -1700 -400 Output: Urine 1700 400 Other: Voiding Method Indwelling Catheter Indwelling Catheter - Exam GENERAL: The patient is confused , no follow commands, not answering question,, not in any acute distress. Well developed, well nourished. HEENT: Pupils are round and equally reacting to light. EOMI. No scleral icterus. No conjunctival pallor. Normocephalic, atraumatic. No pharyngeal erythema. No thyromegaly. CARDIOVASCULAR: S1 and S2 present. No murmurs, rubs, or gallops. PULMONARY: Chest is clear to auscultation, no wheezing , no crackles. ABDOMEN: Soft, nontender, nondistended, normoactive bowel sounds. No palpable organomegaly. MUSCULOSKELETAL: No joint swelling or deformity. EXTREMITIES: No cyanosis, clubbing, or pedal edema. -NEUROLOGICAL: right hemiparensis with increased tone, exam is limited by the pt condition. SKIN: No rashes. no petechiae. - Labs CBC & Chem 7: 08/05/23 11:15 08/05/23 07:44 Labs: Abnormal Lab Results - Last 24 Hours (Table) 08/04/23 08/04/23 08/04/23 Range/Units 07:50 07:50 12:38 Potassium (3.5-5.1) mmol/L POC Glucose (mg/dL) 135 H (70-110) mg/dL Hemoglobin A1c 7.4 H (<=6.0) % Magnesium (1.6-2.3) mg/dL Iron 22 L (50-170) UG/DL % Saturation 6.11 L (12.00-45.00) 08/04/23 08/04/23 08/04/23 Range/Units 15:53 16:51 19:51 Potassium 2.7 L* (3.5-5.1) mmol/L POC Glucose (mg/dL) 190 H 345 H (70-110) mg/dL Hemoglobin A1c (<=6.0) % Magnesium 1.3 L (1.6-2.3) mg/dL Iron (50-170) UG/DL % Saturation (12.00-45.00) 08/04/23 08/05/23 Range/Units 23:37 06:17 Potassium (3.5-5.1) mmol/L POC Glucose (mg/dL) 306 H 262 H (70-110) mg/dL Hemoglobin A1c (<=6.0) % Magnesium (1.6-2.3) mg/dL Iron (50-170) UG/DL % Saturation (12.00-45.00) Assessment and Plan Assessment: Acute CHF exacerbation Acute COPD exacerbation elevated troponin most likely secondary to hypoxia rule out cardiac causes coagulopathy with INR 1.9 on admission Diabetes mellitus Hypertension Hyperlipidemia Obesity with BMI of 34.3. Plan: Continue with BiPAP therapy IV Lasix IV Solu-Medrol Aspirin is a started Cardiology and pulmonary consult monitor INR Labs and medication were reviewed.. Continue same treatment. Continue with symptomatic treatment. Resume home medication. Monitor labs and vitals. DVT and GI prophylaxis. Further recommendations as per clinical course of the jenny ent DVT prophylaxis: hold Subcutaneous heparin or high inr GI Prophylaxis: Pepcid PT/OT: deferred Prognosis is guarded
[2023-08-05] MEDS: ASPIRIN 300 MG SUPP RECTAL SCH (15:26)
[2023-08-05] MEDS: MAGNESIUM SULFATE-D5W PMX 1 GM in DEXTROSE/WATER 1 100ML.BAG IVPB SCH ×2 (15:56→17:33)
[2023-08-05 17:09] LABS: Glucose,Whole Blood 382 mg/dL (70-110)
[2023-08-05 20:12] LABS: Glucose,Whole Blood 459 mg/dL (70-110)
[2023-08-05] MEDS ORDERED: INSULIN ASPART (NovoLOG) 100 UNIT/ML VIAL SQ ONE (20:43)
[2023-08-05] MEDS ORDERED: INSULIN DETEMIR (LEVEMIR) 100 UNIT/ML SYR SQ SCH (21:00)
[2023-08-06] MEDS: HEPARIN SODIUM,PORCINE 5,000 UNIT/ML 1 ML VIAL SQ SCH ×4 (00:11→23:11)
[2023-08-06 00:21] LABS: Glucose,Whole Blood 334 mg/dL (70-110)
[2023-08-06] MEDS: IPRATROPIUM-ALBUTEROL 3 ML NEB INHALATION SCH ×7 (00:32→23:58)
[2023-08-06] MEDS: methylPREDNISolone SOD SUCCI 125 MG/2 ML VIAL IV SCH ×5 (00:36→23:11)
[2023-08-06] MEDS: INSULIN ASPART (NovoLOG) 100 UNIT/ML VIAL SQ SCH ×9 (00:36→20:26)
[2023-08-06 05:56] LABS: Glucose,Whole Blood 278 mg/dL (70-110)
[2023-08-06] MEDS: FORMOTEROL FUMARATE 20 MCG/2 ML NEBU INHALATION SCH ×2 (07:55→21:15)
[2023-08-06] MEDS: BUDESONIDE 1 MG/2 ML NEBU INHALATION SCH ×2 (07:55→21:15)
[2023-08-06] MEDS ORDERED: INSULIN ASPART (NovoLOG) 100 UNIT/ML VIAL SQ SCH (08:15)
[2023-08-06] MEDS: levETIRAcetam IV 500 MG/5 ML VIAL IVP SCH ×2 (09:10→20:25)
[2023-08-06] MEDS: allopurinoL 100 MG TAB PO SCH (09:11)
[2023-08-06] MEDS: FUROSEMIDE 10 MG/ML 4 ML VIAL IV SCH (09:11)
[2023-08-06] MEDS: FAMOTIDINE 20 MG/2 ML VIAL IV SCH ×2 (09:11→20:25)
[2023-08-06 09:50] LABS: Anisocytosis Moderate; Basophils % (A) 0 %; Eosinophils % (A) 0 %; HCT 37.8 % (34.0-46.0); HGB 10.4 gm/dL (11.4-16.0); Hypochromasia Marked; Lymphocytes # (A) 0.5 k/uL (1.0-4.8); Lymphocytes % (A) 4 %; MCHC 27.6 g/dL (31.0-37.0); MCV 83.1 fL (80.0-100.0); Mean Platelet Volume 10.2; Microcytosis Slight; Monocytes # (A) 0.4 k/uL (0-1.0); Monocytes % (A) 4 %; Neutrophils # (A) 9.7 k/uL (1.3-7.7); Neutrophils % (A) 91 %; Platelet Count 285 k/uL (150-450); Poikilocytosis Moderate; RBC 4.55 m/uL (3.80-5.40); RDW 21.3 % (11.5-15.5); WBC 10.7 k/uL (3.8-10.6)
[2023-08-06 10:04] LABS: African American GFR (CKD) >90 (>60 ml/min/1.73 sqM); Blood Urea Nitrogen 29 mg/dL (7-17); Calcium 8.8 mg/dL (8.4-10.2); Chloride 82 mmol/L (98-107); Glucose 446 mg/dL (74-99); Magnesium 1.7 mg/dL (1.6-2.3); Non-African American GFR(CKD) >90 (>60 ml/min/1.73 sqM); Potassium 2.9 mmol/L (3.5-5.1); Sodium 137 mmol/L (137-145)
[2023-08-06 10:10] LABS: Anion Gap 8 mmol/L
[2023-08-06 10:19] LABS: Carbon Dioxide 47 mmol/L (22-30)
[2023-08-06] MEDS ORDERED: INSULIN DETEMIR (LEVEMIR) 100 UNIT/ML SYR SQ SCH (10:45)
[2023-08-06 11:59] LABS: Glucose,Whole Blood 498 mg/dL (70-110)
[2023-08-06] MEDS: NICOTINE 21MG/24HR PATCH TRANSDERM SCH (12:08)
[2023-08-06] MEDS: ASPIRIN 325 MG TAB PO SCH (12:08)
[2023-08-06] MEDS: ASPIRIN 300 MG SUPP RECTAL SCH (12:13)
--- NOTE | 2023-08-06 13:32 | P.PN ---
Subjective Progress Note Date: 08/06/23 Principal diagnosis: Shortness of breath. I am seeing this patient in new consultation today is 08/04/2023 for acute hypoxemic and hypercapnic respiratory failure on BiPAP. Shijen is currently in the emergency room, awaiting a bed on the Cardiac floor. Patient is a 62-year-old white female with past medical history significant for oxygen dependent COPD, congestive heart failure, hypertension, dyslipidemia, type 2 diabetes mellitus, glaucoma, chronic low back pain, and chronic and ongoing tobacco dependence. She has had multiple recent hospital admissions this year for similar issues. Patient is currently lethargic, and I'm unable to elicit much information from her. Apparently, the patient was brought into the hospital by EMS after being found down on the bed room floor at her home. She was confused and possibly remained there overnight. She does have bruising on her left hip and right arm. Patient had an extensive workup on arrival to the emergency room. CT of the brain and C-spine without contrast showed no acute intracranial hemorrhage or mass effect, no fracture or dislocation of the C-spine. X-rays of the right hip and and right hand showed no acute fractures. Patient is currently sitting up in bed, she is lethargic, on BiPAP with settings 16/5 and FiO2 of 35%. respiratory rate is currently 12 breaths per minute, and she achieves tidal volumes around 600 ml. She opens her eyes to vigorous verbal stimulation, but quickly goes back to sleep. Most recent ABG shows pO2 of 56, pCO2 83, and pH of 7.44. Chest x-ray on arrival showed bibasilar atelectasis versus infiltrate. There was cardiomegaly with mild pulmonary vascular congestion. CBC shows some mild leukocytosis with a WBC count of 12, hemoglobin 11.1, hematocrit 38.1, platelets 483. BMP shows sodium of 141, potassium 3.5, chloride 85, serum bicarb 42, BUN 38, creatinine 0.69, glucose 172. Procalcitonin level was elevated at 0.26. Troponin was mildly elevated and trending up at 0.037, 0.125, and 0.141 respectively. NT proBNP was elevated at 7400. Urinalysis not concerning for UTI. Urine toxicology screen positive for opiates. Patient's prognosis is guarded related to above-mentioned comorbidities. Progress note dated 08/05/2023. The patient is seen today in room 367. Currently, the patient's on BiPAP, with settings of 17/5, and 50%. The patient continues on Rocephin, and azithromycin. She has a history of oxygen-dependent COPD, CHF, hypertension, hyperlipidemia, diabetes, glaucoma, chronic low back pain, and chronic and ongoing tobacco dependence. The patient was seen yesterday in consultation. Currently labs include a white count 8.5, hemoglobin 10.4, hematocrit 36.8, and a normal platelet count. Sodium 140, potassium 3.6, chlorides 86, CO2 39, BUN 36, creatinine 0.61. Chest x-ray revealed bibasilar infiltrates or atelectasis. N- terminal proBNP was elevated at greater than 7000. Pro-calcitonin level was elevated at 0.26. Progress note dated 08/06/2023. The patient is seen today in room 367. Currently, the patient's on 4 L of oxygen. She is receiving saline at 10 mL an hour. She didn't use BiPAP last night, with settings of 17/5, and 40%. She is much more awake and alert. She has a history of COPD, which is oxygen dependent, congestive heart failure, hypertension, hyperlipidemia, diabetes mellitus, chronic low back pain, and ongoing tobacco use, and nicotine dependence. White count 10.7, hemoglobin 10.4, hematocrit 37.8, platelet count 285,000. Sodium 137, potassium 2.9, chlorides 82, CO2 47, BUN 29, and creatinine 0.68. Objective - Vital Signs Vital signs: Vital Signs Temp 98.1 F 08/06/23 11:21 Pulse 100 08/06/23 11:21 Resp 16 08/06/23 11:21 BP 125/76 08/06/23 11:21 Pulse Ox 92 L 08/06/23 11:21 FiO2 50 08/06/23 04:47 Intake & Output 08/05/23 08/06/23 08/06/23 18:59 06:59 18:59 Intake Total 840 120 Output Total 950 550 525 Balance -110 -550 -405 Intake: Oral 840 120 Output: Urine 950 550 525 Other: Voiding Method Indwelling Catheter Indwelling Catheter - Exam No acute distress, oriented 3. Currently on 4 L of oxygen. Much more awake and alert. Sitting up in bed. HEENT examination is grossly unremarkable. Neck supple. Full range of motion. No adenopathy thyromegaly or neck vein distention. Cardiovascular examination reveals regular rhythm rate. S1-S2 normal. No S3 or S4. No discernible murmur noted. Heart sounds are distant. Heart rate 96 bpm. Lungs reveal coarse bilateral inspiratory and expiratory rhonchi and wheezes. Breath sounds equal. Minimal basilar crackles. 4 L saturation is 92%. Abdomen soft bowel sounds are heard. No masses or tenderness. Extremities are intact. No cyanosis clubbing or edema. Skin is without rash or lesion. Neurologic examination is brief but nonfocal. - Labs CBC & Chem 7: 08/06/23 08:53 08/06/23 08:53 Labs: Abnormal Lab Results - Last 24 Hours (Table) 08/05/23 08/05/23 08/06/23 Range/Units 16:53 20:11 00:20 WBC (3.8-10.6) k/uL Hgb (11.4-16.0) gm/dL MCH (25.0-35.0) pg MCHC (31.0-37.0) g/dL RDW (11.5-15.5) % Neutrophils # (1.3-7.7) k/uL Lymphocytes # (1.0-4.8) k/uL Potassium (3.5-5.1) mmol/L Chloride (98-107) mmol/L Carbon Dioxide (22-30) mmol/L BUN (7-17) mg/dL Glucose (74-99) mg/dL POC Glucose (mg/dL) 382 H 459 H 334 H (70-110) mg/dL 08/06/23 08/06/23 08/06/23 Range/Units 05:55 08:53 08:53 WBC 10.7 H (3.8-10.6) k/uL Hgb 10.4 L (11.4-16.0) gm/dL MCH 23.0 L (25.0-35.0) pg MCHC 27.6 L (31.0-37.0) g/dL RDW 21.3 H (11.5-15.5) % Neutrophils # 9.7 H (1.3-7.7) k/uL Lymphocytes # 0.5 L (1.0-4.8) k/uL Potassium 2.9 L (3.5-5.1) mmol/L Chloride 82 L (98-107) mmol/L Carbon Dioxide 47 H* (22-30) mmol/L BUN 29 H (7-17) mg/dL Glucose 446 H (74-99) mg/dL POC Glucose (mg/dL) 278 H (70-110) mg/dL 08/06/23 Range/Units 11:52 WBC (3.8-10.6) k/uL Hgb (11.4-16.0) gm/dL MCH (25.0-35.0) pg MCHC (31.0-37.0) g/dL RDW (11.5-15.5) % Neutrophils # (1.3-7.7) k/uL Lymphocytes # (1.0-4.8) k/uL Potassium (3.5-5.1) mmol/L Chloride (98-107) mmol/L Carbon Dioxide (22-30) mmol/L BUN (7-17) mg/dL Glucose (74-99) mg/dL POC Glucose (mg/dL) 498 H (70-110) mg/dL Assessment and Plan Assessment: Acute hypoxemic and hypercapnic respiratory failure currently on BiPAP, Chest x- ray on arrival showed bibasilar atelectasis versus infiltrates. There was cardiomegaly with mild pulmonary vascular congestion. NT proBNP was elevated at 7400. Acute exacerbation of chronic obstructive pulmonary disease. Acute exacerbation of diastolic congestive heart failure. Frequent falls. Altered mental status, probably related to metabolic encephalopathy and hypercapnic respiratory failure. Chronic hypoxemic respiratory failure. Chronic ongoing nicotine dependence. Diabetes mellitus type 2. Benign essential hypertension. Hyperlipidemia. Osteoarthritis. Plan: Plan dated 08/05/2023. The patient is seen today in room 367. She remains on BiPAP, with settings of 17/5, and 50%. The patient also remains on Rocephin and azithromycin for possible pneumonia. The patient's N-terminal proBNP was greater than 7000. Likely her acute hypoxemic respiratory failure is multifactorial, in part related to COPD exacerbation, fluid overload, and possible pneumonia. We will continue to follow and make recommendations along the way. Prognosis is guarded. She does feel better today. Plan dated 08/06/2023. The patient is seen today in room 367. She's currently on O2 by nasal cannula at 4 L. Saturations are 92%. The patient did use BiPAP last night, with settings of 17/5, and 40%. The patient is awake and alert, and sitting up in bed. She has no particular complaints. She feels like her breathing is at baseline. Labs, x-rays, and medications are reviewed. The patient's overall prognosis remains guarded. We will continue to see the patient and make recommendations along the way. Time with Patient: Less than 30
[2023-08-06] MEDS ORDERED: Potassium Replacement Protocol 1 EACH MISC MISCELLANE PRN (17:00)
[2023-08-06 17:05] LABS: Glucose,Whole Blood 428 mg/dL (70-110)
[2023-08-06] MEDS: POTASSIUM CHLORIDE ER 20 MEQ TAB.ER PO SCH ×2 (17:12→20:25)
[2023-08-06 20:05] LABS: Glucose,Whole Blood 434 mg/dL (70-110)
[2023-08-06] MEDS: INSULIN DETEMIR (LEVEMIR) 100 UNIT/ML SYR SQ SCH (20:26)
--- NOTE | 2023-08-06 20:36 | P.PN ---
Subjective Progress Note Date: 08/06/23 63 years old female with past medical history of Heart Failure, COPD, Diabetes Mellitus, Eye Disorder, GERD/Reflux, Hyperlipidemia, Hypertension, Osteoarthritis Presents with recurrent falls and altered mental status. Patient cannot provide information was obtained from staff records. On admission she was awake but confused. She could not provide information she wakes up to verbal stimuli answered to her question and then go back to sleep. No family at bedside. Patient presents from home with altered mental status, and she was found on the floor and there is big bruise in the left upper thigh and lower trunk and also in her right hand. X-ray were negative for fractures in these areas. Patient has evidence of wheezing and prolonged expiration on exam She is tachycardic 112, she is saturating 93% on room air and she is afebrile showing mild leukocytosis of 12,000, anemia with 11.1. Elevated platelet count 483. INR 1.9. PH 7.41 pCO2 is 75. Sodium 141, lactic acid is elevated 5.5, creatinine 0.6. Troponin 0.03. Urine analysis is not suspicious for infection Acetaminophen and serum alcohol levels are low. Urine drug screen is negative. EKG showing sinus tachycardia at 111 Chest x-ray showing bilateral basal infiltrates suspicious for pneumonia versus atelectasis. I reviewed the chest x-ray by myself and she has bilateral distal fluffy infiltrates suspicious for pneumonia versus CHF Hip and pelvis x-ray: No fracture And x-ray: No acute osseous deformity CT of the head and neck: No acute fracture or dislocation of the cervical spine. Multilevel degenerative disease. No acute intracranial hemorrhage mass effect or midline shift 08/06/2023 Patient is seen and evaluated in room at bedside; Currently, the patient's on 4 L of oxygen. She is receiving saline at 10 mL an hour. She didn't use BiPAP last night, with settings of 17/5, and 40%. She is much more awake and alert. She has a history of COPD, which is oxygen dependent, congestive heart failure, hypertension, hyperlipidemia, diabetes mellitus, chronic low back pain, and ongoing tobacco use, and nicotine dependence. -- White count 10.7, hemoglobin 10.4, hematocrit 37.8, platelet count 285,000. Sodium 137, potassium 2.9, chlorides 82, CO2 47, BUN 29, and creatinine 0.68. Objective - Vital Signs Vital signs: Vital Signs Temp 97.0 F L 08/06/23 08:00 Pulse 80 08/06/23 08:14 Resp 18 08/06/23 08:00 BP 125/60 08/06/23 08:00 Pulse Ox 92 L 08/06/23 08:00 FiO2 50 08/06/23 04:47 Intake & Output 08/05/23 08/06/23 08/06/23 18:59 06:59 18:59 Intake Total 840 120 Output Total 950 550 Balance -110 -550 120 Intake: Oral 840 120 Output: Urine 950 550 Other: Voiding Method Indwelling Catheter Indwelling Catheter - Exam GENERAL: The patient is confused , no follow commands, not answering question,, not in any acute distress. Well developed, well nourished. HEENT: Pupils are round and equally reacting to light. EOMI. No scleral icterus. No conjunctival pallor. Normocephalic, atraumatic. No pharyngeal erythema. No thyromegaly. CARDIOVASCULAR: S1 and S2 present. No murmurs, rubs, or gallops. PULMONARY: Chest is clear to auscultation, no wheezing , no crackles. ABDOMEN: Soft, nontender, nondistended, normoactive bowel sounds. No palpable organomegaly. MUSCULOSKELETAL: No joint swelling or deformity. EXTREMITIES: No cyanosis, clubbing, or pedal edema. -NEUROLOGICAL: right hemiparensis with increased tone, exam is limited by the pt condition. SKIN: No rashes. no petechiae. - Labs CBC & Chem 7: 08/06/23 08:53 08/06/23 08:53 Labs: Abnormal Lab Results - Last 24 Hours (Table) 08/05/23 08/05/23 08/05/23 Range/Units 07:44 11:15 12:19 WBC (3.8-10.6) k/uL Hgb 10.4 L (11.4-16.0) gm/dL MCH 23.1 L (25.0-35.0) pg MCHC 28.3 L (31.0-37.0) g/dL RDW 21.1 H (11.5-15.5) % Neutrophils # (1.3-7.7) k/uL Lymphocytes # 0.3 L (1.0-4.8) k/uL Potassium (3.5-5.1) mmol/L Chloride 86 L (98-107) mmol/L Carbon Dioxide 39 H (22-30) mmol/L BUN 36 H (7-17) mg/dL Glucose 216 H (74-99) mg/dL POC Glucose (mg/dL) 244 H (70-110) mg/dL Magnesium 1.5 L (1.6-2.3) mg/dL 08/05/23 08/05/23 08/06/23 Range/Units 16:53 20:11 00:20 WBC (3.8-10.6) k/uL Hgb (11.4-16.0) gm/dL MCH (25.0-35.0) pg MCHC (31.0-37.0) g/dL RDW (11.5-15.5) % Neutrophils # (1.3-7.7) k/uL Lymphocytes # (1.0-4.8) k/uL Potassium (3.5-5.1) mmol/L Chloride (98-107) mmol/L Carbon Dioxide (22-30) mmol/L BUN (7-17) mg/dL Glucose (74-99) mg/dL POC Glucose (mg/dL) 382 H 459 H 334 H (70-110) mg/dL Magnesium (1.6-2.3) mg/dL 08/06/23 08/06/23 08/06/23 Range/Units 05:55 08:53 08:53 WBC 10.7 H (3.8-10.6) k/uL Hgb 10.4 L (11.4-16.0) gm/dL MCH 23.0 L (25.0-35.0) pg MCHC 27.6 L (31.0-37.0) g/dL RDW 21.3 H (11.5-15.5) % Neutrophils # 9.7 H (1.3-7.7) k/uL Lymphocytes # 0.5 L (1.0-4.8) k/uL Potassium 2.9 L (3.5-5.1) mmol/L Chloride 82 L (98-107) mmol/L Carbon Dioxide 47 H* (22-30) mmol/L BUN 29 H (7-17) mg/dL Glucose 446 H (74-99) mg/dL POC Glucose (mg/dL) 278 H (70-110) mg/dL Magnesium (1.6-2.3) mg/dL Assessment and Plan Assessment: Acute CHF exacerbation Acute COPD exacerbation elevated troponin most likely secondary to hypoxia rule out cardiac causes coagulopathy with INR 1.9 on admission Diabetes mellitus Hypertension Hyperlipidemia Obesity with BMI of 34.3. Plan: Continue with BiPAP therapy IV Lasix IV Solu-Medrol Aspirin is a started Cardiology and pulmonary consult monitor INR Labs and medication were reviewed.. Continue same treatment. Continue with symptomatic treatment. Resume home medication. Monitor labs and vitals. DVT and GI prophylaxis. Further recommendations as per clinical course of the patient DVT prophylaxis: hold Subcutaneous heparin or high inr GI Prophylaxis: Pepcid PT/OT: deferred Prognosis is guarded
[2023-08-07] MEDS: IPRATROPIUM-ALBUTEROL 3 ML NEB INHALATION SCH ×6 (04:17→23:39)
[2023-08-07] MEDS: methylPREDNISolone SOD SUCCI 125 MG/2 ML VIAL IV SCH ×4 (05:00→23:14)
[2023-08-07 06:22] LABS: Glucose,Whole Blood 307 mg/dL (70-110)
[2023-08-07] MEDS: INSULIN ASPART (NovoLOG) 100 UNIT/ML VIAL SQ SCH ×8 (06:29→21:05)
[2023-08-07] MEDS: levETIRAcetam IV 500 MG/5 ML VIAL IVP SCH ×2 (08:27→20:47)
[2023-08-07] MEDS: HEPARIN SODIUM,PORCINE 5,000 UNIT/ML 1 ML VIAL SQ SCH ×3 (08:28→23:14)
[2023-08-07] MEDS: FUROSEMIDE 10 MG/ML 4 ML VIAL IV SCH (08:28)
[2023-08-07] MEDS: FAMOTIDINE 20 MG/2 ML VIAL IV SCH ×2 (08:28→20:18)
[2023-08-07] MEDS: ASPIRIN 325 MG TAB PO SCH ×2 (08:29→16:45)
[2023-08-07] MEDS: NICOTINE 21MG/24HR PATCH TRANSDERM SCH (08:29)
[2023-08-07] MEDS: allopurinoL 100 MG TAB PO SCH ×2 (08:29→16:45)
[2023-08-07 08:52] LABS: Anisocytosis Moderate; Basophils % (A) 0 %; Eosinophils % (A) 0 %; HCT 33.3 % (34.0-46.0); HGB 9.8 gm/dL (11.4-16.0); Hypochromasia Marked; Lymphocytes # (A) 0.2 k/uL (1.0-4.8); Lymphocytes % (A) 3 %; MCH 23.3 pg (25.0-35.0); MCHC 29.4 g/dL (31.0-37.0); Mean Platelet Volume 9.9; Microcytosis Moderate; Monocytes # (A) 0.3 k/uL (0-1.0); Monocytes % (A) 4 %; Neutrophils # (A) 7.6 k/uL (1.3-7.7); Neutrophils % (A) 93 %; Platelet Count 201 k/uL (150-450); Poikilocytosis Moderate; RBC 4.22 m/uL (3.80-5.40); RDW 21.8 % (11.5-15.5); WBC 8.1 k/uL (3.8-10.6)
[2023-08-07] MEDS: BUDESONIDE 1 MG/2 ML NEBU INHALATION SCH ×2 (08:58→20:37)
[2023-08-07] MEDS: FORMOTEROL FUMARATE 20 MCG/2 ML NEBU INHALATION SCH ×2 (08:58→20:37)
[2023-08-07] MEDS: MORPHINE SULFATE 4 MG/ML SYRINGE IVP PRN (09:03)
[2023-08-07 09:36] LABS: African American GFR (CKD) >90 (>60 ml/min/1.73 sqM); Blood Urea Nitrogen 26 mg/dL (7-17); Calcium 8.4 mg/dL (8.4-10.2); Chloride 85 mmol/L (98-107); Glucose 284 mg/dL (74-99); Non-African American GFR(CKD) >90 (>60 ml/min/1.73 sqM); Sodium 138 mmol/L (137-145)
[2023-08-07] MEDS ORDERED: LORazepam 2 MG/ML INJ IV STA (09:41)
[2023-08-07 09:43] LABS: Anion Gap 6 mmol/L
[2023-08-07 09:53] LABS: Carbon Dioxide 47 mmol/L (22-30)
[2023-08-07] MEDS ORDERED: HALOPERIDOL LACTATE 5 MG/ML 1 ML VIAL IVP ONE (10:12)
[2023-08-07 11:59] LABS: Glucose,Whole Blood 383 mg/dL (70-110)
[2023-08-07] MEDS: HALOPERIDOL LACTATE 5 MG/ML 1 ML VIAL IVP PRN ×3 (13:24→20:48)
--- NOTE | 2023-08-07 13:43 | P.PN ---
Subjective Progress Note Date: 08/07/23 I am seeing this patient in new consultation today is 08/04/2023 for acute hypoxemic and hypercapnic respiratory failure on BiPAP. Shijen is currently in the emergency room, awaiting a bed on the Cardiac floor. Patient is a 62-year-old white female with past medical history significant for oxygen dependent COPD, congestive heart failure, hypertension, dyslipidemia, type 2 diabetes mellitus, glaucoma, chronic low back pain, and chronic and ongoing tobacco dependence. She has had multiple recent hospital admissions this year for similar issues. Patient is currently lethargic, and I'm unable to elicit much information from her. Apparently, the patient was brought into the hospital by EMS after being f ound down on the bed room floor at her home. She was confused and possibly remained there overnight. She does have bruising on her left hip and right arm. Patient had an extensive workup on arrival to the emergency room. CT of the brain and C-spine without contrast showed no acute intracranial hemorrhage or mass effect, no fracture or dislocation of the C-spine. X-rays of the right hip and and right hand showed no acute fractures. Patient is currently sitting up in bed, she is lethargic, on BiPAP with settings 16/5 and FiO2 of 35%. respiratory rate is currently 12 breaths per minute, and she achieves tidal volumes around 600 ml. She opens her eyes to vigorous verbal stimulation, but qu ickly goes back to sleep. Most recent ABG shows pO2 of 56, pCO2 83, and pH of 7.44. Chest x-ray on arrival showed bibasilar atelectasis versus infiltrate. There was cardiomegaly with mild pulmonary vascular congestion. CBC shows some mild leukocytosis with a WBC count of 12, hemoglobin 11.1, hematocrit 38.1, platelets 483. BMP shows sodium of 141, potassium 3.5, chloride 85, serum bicarb 42, BUN 38, creatinine 0.69, glucose 172. Procalcitonin level was elevated at 0.26. Troponin was mildly elevated and trending up at 0.037, 0.125, and 0.141 respectively. NT proBNP was elevated at 7400. Urinalysis not concerning for UTI. Urine toxicology screen positive for opiates. Patient's prognosis is guarded related to above-mentioned comorbidities. Progress note dated 08/05/2023. The patient is seen today in room 367. Currently, the patient's on BiPAP, with settings of 17/5, and 50%. The patient continues on Rocephin, and azithromycin. She has a history of oxygen-dependent COPD, CHF, hypertension, hyperlipidemia, diabetes, glaucoma, chronic low back pain, and chronic and ongoing tobacco dependence. The patient was seen yesterday in consultation. Currently labs include a white count 8.5, hemoglobin 10.4, hematocrit 36.8, and a normal platelet count. Sodium 140, potassium 3.6, chlorides 86, CO2 39, BUN 36, creatinine 0.61. Chest x-ray revealed bibasilar infiltrates or atelectasis. N- terminal proBNP was elevated at greater than 7000. Pro-calcitonin level was elevated at 0.26. Progress note dated 08/06/2023. The patient is seen today in room 367. Currently, the patient's on 4 L of oxygen. She is receiving saline at 10 mL an hour. She didn't use BiPAP last night, with settings of 17/5, and 40%. She is much more awake and alert. She has a history of COPD, which is oxygen dependent, congestive heart failure, hypertension, hyperlipidemia, diabetes mellitus, chronic low back pain, and ongoing tobacco use, and nicotine dependence. White count 10.7, hemoglobin 10.4, hematocrit 37.8, platelet count 285,000. Sodium 137, potassium 2.9, chlorides 82, CO2 47, BUN 29, and creatinine 0.68. The patient is seen today 08/07/2023 in follow-up on the selective care unit. She is currently resting comfortably in bed. She was quite agitated and restless and combative earlier this morning. She would not keep the BiPAP mask on. She required Haldol, Ativan, morphine and eventually settled down and is currently on the BiPAP 17/5 and 40% FiO2. Unable to obtain arterial blood gases. Her bicarb on the electrolyte profile is 47. White count 8.1. Hemoglobin 9.8. Platelets 201. Sodium 138. Potassium 3.0. BUN 26. Creatinine 0.52. Glucose 284. She is continued on DuoNeb inhalations, Pulmicort and Perforomist inhalations, IV Solu-Medrol. NicoDerm patches in place. Remains on IV diuretics. Currently in a -1.2 L balance. Heparin for DVT prophylaxis. Objective - Vital Signs Vital signs: Vital Signs Temp 99.2 F 08/07/23 08:00 Pulse 88 08/07/23 08:00 Resp 20 08/07/23 08:00 BP 153/70 08/07/23 08:00 Pulse Ox 92 L 08/07/23 08:00 FiO2 40 08/07/23 11:13 Intake & Output 08/06/23 08/07/23 08/07/23 18:59 06:59 18:59 Intake Total 900 240 Output Total 525 1600 1800 Balance 375 -1600 -1560 Intake: Oral 900 240 Output: Urine 525 1600 1800 Other: Voiding Method Indwelling Catheter Indwelling Catheter - Exam GENERAL EXAM: Currently calm, cooperative 63-year-old female, on BiPAP, fairly comfortable in no apparent distress. HEAD: Normocephalic. EYES: Normal reaction of pupils, equal size. NOSE: Clear with pink turbinates. THROAT: No erythema or exudates. NECK: No masses, no JVD. CHEST: No chest wall deformity. LUNGS: Equal air entry with bilateral end expiratory wheeze, diminished. CVS: S1 and S2 normal with no audible murmur, regular rhythm. ABDOMEN: No hepatosplenomegaly, normal bowel sounds, no guarding or rigidity. SPINE: No scoliosis or deformity SKIN: No rashes CENTRAL NERVOUS SYSTEM: No focal deficits, tone is normal in all 4 extremities. EXTREMITIES: There is no peripheral edema. No clubbing, no cyanosis. Peripheral pulses are intact. - Labs CBC & Chem 7: 08/07/23 07:22 08/07/23 07:22 Labs: Abnormal Lab Results - Last 24 Hours (Table) 08/06/23 08/06/23 08/07/23 Range/Units 17:04 20:03 06:21 Hgb (11.4-16.0) gm/dL Hct (34.0-46.0) % MCV (80.0-100.0) fL MCH (25.0-35.0) pg MCHC (31.0-37.0) g/dL RDW (11.5-15.5) % Lymphocytes # (1.0-4.8) k/uL Potassium (3.5-5.1) mmol/L Chloride (98-107) mmol/L Carbon Dioxide (22-30) mmol/L BUN (7-17) mg/dL Glucose (74-99) mg/dL POC Glucose (mg/dL) 428 H 434 H 307 H (70-110) mg/dL 08/07/23 08/07/23 08/07/23 Range/Units 07:22 07:22 11:57 Hgb 9.8 L (11.4-16.0) gm/dL Hct 33.3 L (34.0-46.0) % MCV 79.0 L (80.0-100.0) fL MCH 23.3 L (25.0-35.0) pg MCHC 29.4 L (31.0-37.0) g/dL RDW 21.8 H (11.5-15.5) % Lymphocytes # 0.2 L (1.0-4.8) k/uL Potassium 3.0 L (3.5-5.1) mmol/L Chloride 85 L (98-107) mmol/L Carbon Dioxide 47 H* (22-30) mmol/L BUN 26 H (7-17) mg/dL Glucose 284 H (74-99) mg/dL POC Glucose (mg/dL) 383 H (70-110) mg/dL Assessment and Plan Assessment: Acute hypoxemic and hypercapnic respiratory failure currently on BiPAP, Chest x- ray on arrival showed bibasilar atelectasis versus infiltrates. There was cardiomegaly with mild pulmonary vascular congestion. NT proBNP was elevated at 7400. Altered mental status secondary to hypercapnic respiratory failure Acute exacerbation of chronic obstructive pulmonary disease Acute exacerbation of diastolic congestive heart failure Frequent falls Altered mental status, probably related to metabolic encephalopathy and hypercapnic respiratory failure Chronic hypoxemic respiratory failure Chronic ongoing nicotine dependence Diabetes mellitus type 2 Benign essential hypertension Hyperlipidemia Osteoarthritis Poor overall functional performance based on the above-mentioned multiple comorbidities Plan: The patient was seen and evaluated Required significant sedation Suspect altered mental status secondary to hypercapnia Continue with the BiPAP support for now Continue the current medications We will continue to follow I have personally seen and examined the patient, performed the documentation and the assessment and plan as written. Number of minutes spent on the visit: 10.
[2023-08-07 14:19] LABS: Ferritin 18.8 ng/mL (10.0-291.0)
[2023-08-07 16:47] LABS: Glucose,Whole Blood 316 mg/dL (70-110)
[2023-08-07] MEDS ORDERED: Potassium Replacement Protocol 1 EACH MISC MISCELLANE PRN (17:10)
--- NOTE | 2023-08-07 17:35 | P.PN ---
Subjective Progress Note Date: 08/07/23 63 years old female with past medical history of Heart Failure, COPD, Diabetes Mellitus, Eye Disorder, GERD/Reflux, Hyperlipidemia, Hypertension, Osteoarthritis Presents with recurrent falls and altered mental status. Patient cannot provide information was obtained from staff records. On admission she was awake but confused. She could not provide information she wakes up to verbal stimuli answered to her question and then go back to sleep. No family at bedside. Patient presents from home with altered mental status, and she was found on the floor and there is big bruise in the left upper thigh and lower trunk and also in her right hand. X-ray were negative for fractures in these areas. Patient has evidence of wheezing and prolonged expiration on exam She is tachycardic 112, she is saturating 93% on room air and she is afebrile showing mild leukocytosis of 12,000, anemia with 11.1. Elevated platelet count 483. INR 1.9. PH 7.41 pCO2 is 75. Sodium 141, lactic acid is elevated 5.5, creatinine 0.6. Troponin 0.03. Urine analysis is not suspicious for infection Acetaminophen and serum alcohol levels are low. Urine drug screen is negative. EKG showing sinus tachycardia at 111 Chest x-ray showing bilateral basal infiltrates suspicious for pneumonia versus atelectasis. I reviewed the chest x-ray by myself and she has bilateral distal fluffy infiltrates suspicious for pneumonia versus CHF Hip and pelvis x-ray: No fracture And x-ray: No acute osseous deformity CT of the head and neck: No acute fracture or dislocation of the cervical spine. Multilevel degenerative disease. No acute intracranial hemorrhage mass effect or midline shift 08/06/2023 Patient is seen and evaluated in room at bedside; Currently, the patient's on 4 L of oxygen. She is receiving saline at 10 mL an hour. She didn't use BiPAP last night, with settings of 17/5, and 40%. She is much more awake and alert. She has a history of COPD, which is oxygen dependent, congestive heart failure, hypertension, hyperlipidemia, diabetes mellitus, chronic low back pain, and ongoing tobacco use, and nicotine dependence. -- White count 10.7, hemoglobin 10.4, hematocrit 37.8, platelet count 285,000. Sodium 137, potassium 2.9, chlorides 82, CO2 47, BUN 29, and creatinine 0.68. 08/07/2023 Patient is seen and evaluated in follow-up on the selective care unit. She is currently resting comfortably in bed. She was quite agitated and restless and combative earlier this morning. She would not keep the BiPAP mask on. She required Haldol, Ativan, morphine and eventually settled down and is currently on the BiPAP 17/5 and 40% FiO2. Unable to obtain arterial blood gases. Her bicarb on the electrolyte profile is 47. White count 8.1. Hemoglobin 9.8. Platelets 201. Sodium 138. Potassium 3.0. BUN 26. Creatinine 0.52. Glucose 284. She is continued on DuoNeb inhalations, Pulmicort and Perforomist inhalations, IV Solu-Medrol. NicoDerm patches in place. Remains on IV diuretics. Currently in a -1.2 L balance. Heparin for DVT prophylaxis. -- Patient has been combative and restless; we will add Haldol 2 mg IV every 4 hours when necessary -- Altered mental status likely related to hypercapnia; patient is noncompliant with BiPAP - Currently resting comfortably with BiPAP Objective - Vital Signs Vital signs: Vital Signs Temp 98.4 F 08/07/23 04:00 Pulse 76 08/07/23 04:33 Resp 21 08/07/23 04:00 BP 138/70 08/07/23 04:00 Pulse Ox 92 L 08/07/23 04:00 FiO2 50 08/06/23 04:47 Intake & Output 08/06/23 08/07/23 08/07/23 18:59 06:59 18:59 Intake Total 900 240 Output Total 525 1600 1100 Balance 803 -1600 860 Intake: Oral 900 240 Output: Urine 525 1600 1100 Other: Voiding Method Indwelling Catheter - Exam GENERAL: The patient is confused , no follow commands, not answering question,, not in any acute distress. Well developed, well nourished. HEENT: Pupils are round and equally reacting to light. EOMI. No scleral icterus. No conjunctival pallor. Normocephalic, atraumatic. No pharyngeal erythema. No thyromegaly. CARDIOVASCULAR: S1 and S2 present. No murmurs, rubs, or gallops. PULMONARY: Chest is clear to auscultation, no wheezing , no crackles. ABDOMEN: Soft, nontender, nondistended, normoactive bowel sounds. No palpable organomegaly. MUSCULOSKELETAL: No joint swelling or deformity. EXTREMITIES: No cyanosis, clubbing, or pedal edema. -NEUROLOGICAL: right hemiparensis with increased tone, exam is limited by the pt condition. SKIN: No rashes. no petechiae. - Labs CBC & Chem 7: 08/07/23 07:22 08/07/23 07:22 Labs: Abnormal Lab Results - Last 24 Hours (Table) 08/06/23 08/06/23 08/06/23 Range/Units 11:52 17:04 20:03 Hgb (11.4-16.0) gm/dL Hct (34.0-46.0) % MCV (80.0-100.0) fL MCH (25.0-35.0) pg MCHC (31.0-37.0) g/dL RDW (11.5-15.5) % Lymphocytes # (1.0-4.8) k/uL Potassium (3.5-5.1) mmol/L Chloride (98-107) mmol/L Carbon Dioxide (22-30) mmol/L BUN (7-17) mg/dL Glucose (74-99) mg/dL POC Glucose (mg/dL) 498 H 428 H 434 H (70-110) mg/dL 08/07/23 08/07/23 08/07/23 Range/Units 06:21 07:22 07:22 Hgb 9.8 L (11.4-16.0) gm/dL Hct 33.3 L (34.0-46.0) % MCV 79.0 L (80.0-100.0) fL MCH 23.3 L (25.0-35.0) pg MCHC 29.4 L (31.0-37.0) g/dL RDW 21.8 H (11.5-15.5) % Lymphocytes # 0.2 L (1.0-4.8) k/uL Potassium 3.0 L (3.5-5.1) mmol/L Chloride 85 L (98-107) mmol/L Carbon Dioxide 47 H* (22-30) mmol/L BUN 26 H (7-17) mg/dL Glucose 284 H (74-99) mg/dL POC Glucose (mg/dL) 307 H (70-110) mg/dL Assessment and Plan Assessment: Acute CHF exacerbation Acute COPD exacerbation elevated troponin most likely secondary to hypoxia rule out cardiac causes coagulopathy with INR 1.9 on admission Diabetes mellitus Hypertension Hyperlipidemia Obesity with BMI of 34.3. Plan: Continue with BiPAP therapy IV Lasix IV Solu-Medrol Aspirin is a started Cardiology and pulmonary consult monitor INR Labs and medication were reviewed.. Continue same treatment. Continue with symptomatic treatment. Resume home medication. Monitor labs and vitals. DVT and GI prophylaxis. Further recommendations as per clinical course of the patient DVT prophylaxis: hold Subcutaneous heparin or high inr GI Prophylaxis: Pepcid PT/OT: deferred Prognosis is guarded
[2023-08-07] MEDS: POTASSIUM CHLORIDE 10 MEQ in WATER FOR INJECTION 1 100ML.BAG IVPB SCH ×4 (17:36→23:14)
[2023-08-07] MEDS ORDERED: POTASSIUM CHLORIDE 10 MEQ in WATER FOR INJECTION 1 100ML.BAG IVPB SCH (18:00)
[2023-08-07] MEDS: INSULIN DETEMIR (LEVEMIR) 100 UNIT/ML SYR SQ SCH (20:48)
[2023-08-07 21:07] LABS: Glucose,Whole Blood 278 mg/dL (70-110)
[2023-08-08] MEDS: IPRATROPIUM-ALBUTEROL 3 ML NEB INHALATION SCH ×5 (03:53→21:01)
[2023-08-08] MEDS: methylPREDNISolone SOD SUCCI 125 MG/2 ML VIAL IV SCH ×4 (04:31→23:44)
[2023-08-08] MEDS: INSULIN ASPART (NovoLOG) 100 UNIT/ML VIAL SQ SCH ×8 (05:56→21:18)
[2023-08-08 05:58] LABS: Glucose,Whole Blood 146 mg/dL (70-110)
[2023-08-08] MEDS: allopurinoL 100 MG TAB PO SCH (07:42)
[2023-08-08] MEDS: HEPARIN SODIUM,PORCINE 5,000 UNIT/ML 1 ML VIAL SQ SCH ×3 (07:42→23:44)
[2023-08-08] MEDS: ASPIRIN 325 MG TAB PO SCH (07:42)
[2023-08-08] MEDS: FAMOTIDINE 20 MG/2 ML VIAL IV SCH ×2 (07:42→21:15)
[2023-08-08] MEDS: FUROSEMIDE 10 MG/ML 4 ML VIAL IV SCH (07:42)
[2023-08-08] MEDS: NICOTINE 21MG/24HR PATCH TRANSDERM SCH (07:43)
[2023-08-08] MEDS: levETIRAcetam IV 500 MG/5 ML VIAL IVP SCH ×2 (07:43→21:14)
[2023-08-08] MEDS: HALOPERIDOL LACTATE 5 MG/ML 1 ML VIAL IVP PRN (08:03)
[2023-08-08] MEDS: FORMOTEROL FUMARATE 20 MCG/2 ML NEBU INHALATION SCH ×2 (08:25→21:01)
[2023-08-08] MEDS: BUDESONIDE 1 MG/2 ML NEBU INHALATION SCH ×2 (08:25→21:01)
[2023-08-08 10:41] LABS: African American GFR (CKD) >90 (>60 ml/min/1.73 sqM); Blood Urea Nitrogen 27 mg/dL (7-17); Calcium 8.2 mg/dL (8.4-10.2); Chloride 86 mmol/L (98-107); Glucose 435 mg/dL (74-99); Non-African American GFR(CKD) >90 (>60 ml/min/1.73 sqM); Potassium 3.4 mmol/L (3.5-5.1); Sodium 137 mmol/L (137-145)
[2023-08-08 10:47] LABS: Anion Gap 8 mmol/L
[2023-08-08 11:14] LABS: Carbon Dioxide 43 mmol/L (22-30)
[2023-08-08 11:31] LABS: Glucose,Whole Blood 420 mg/dL (70-110)
--- NOTE | 2023-08-08 13:51 | P.PN ---
Subjective Progress Note Date: 08/08/23 I am seeing this patient in new consultation today is 08/04/2023 for acute hypoxemic and hypercapnic respiratory failure on BiPAP. Shijen is currently in the emergency room, awaiting a bed on the Cardiac floor. Patient is a 62-year-old white female with past medical history significant for oxygen dependent COPD, congestive heart failure, hypertension, dyslipidemia, type 2 diabetes mellitus, glaucoma, chronic low back pain, and chronic and ongoing tobacco dependence. She has had multiple recent hospital admissions this year for similar issues. Patient is currently lethargic, and I'm unable to elicit much information from her. Apparently, the patient was brought into the hospital by EMS after being found down on the bed room floor at her home. She was confused and possibly remained there overnight. She does have bruising on her left hip and right arm. Patient had an extensive workup on arrival to the emergency room. CT of the brain and C-spine without contrast showed no acute intracranial hemorrhage or mass effect, no fracture or dislocation of the C-spine. X-rays of the right hip and and right hand showed no acute fractures. Patient is currently sitting up in bed, she is lethargic, on BiPAP with settings 16/5 and FiO2 of 35%. respiratory rate is currently 12 breaths per minute, and she achieves tidal volumes around 600 ml. She opens her eyes to vigorous verbal stimulation, but q uickly goes back to sleep. Most recent ABG shows pO2 of 56, pCO2 83, and pH of 7.44. Chest x-ray on arrival showed bibasilar atelectasis versus infiltrate. There was cardiomegaly with mild pulmonary vascular congestion. CBC shows some mild leukocytosis with a WBC count of 12, hemoglobin 11.1, hematocrit 38.1, platelets 483. BMP shows sodium of 141, potassium 3.5, chloride 85, serum bicarb 42, BUN 38, creatinine 0.69, glucose 172. Procalcitonin level was elevated at 0.26. Troponin was mildly elevated and trending up at 0.037, 0.125, and 0.141 respectively. NT proBNP was elevated at 7400. Urinalysis not concerning for UTI. Urine toxicology screen positive for opiates. Patient's prognosis is guarded related to above-mentioned comorbidities. Progress note dated 08/05/2023. The patient is seen today in room 367. Currently, the patient's on BiPAP, with settings of 17/5, and 50%. The patient continues on Rocephin, and azithromycin. She has a history of oxygen-dependent COPD, CHF, hypertension, hyperlipidemia, diabetes, glaucoma, chronic low back pain, and chronic and ongoing tobacco dependence. The patient was seen yesterday in consultation. Currently labs include a white count 8.5, hemoglobin 10.4, hematocrit 36.8, and a normal platelet count. Sodium 140, potassium 3.6, chlorides 86, CO2 39, BUN 36, creatinine 0.61. Chest x-ray revealed bibasilar infiltrates or atelectasis. N- terminal proBNP was elevated at greater than 7000. Pro-calcitonin level was elevated at 0.26. Progress note dated 08/06/2023. The patient is seen today in room 367. Currently, the patient's on 4 L of oxygen. She is receiving saline at 10 mL an hour. She didn't use BiPAP last night, with settings of 17/5, and 40%. She is much more awake and alert. She has a history of COPD, which is oxygen dependent, congestive heart failure, hypertension, hyperlipidemia, diabetes mellitus, chronic low back pain, and ongoing tobacco use, and nicotine dependence. White count 10.7, hemoglobin 10.4, hematocrit 37.8, platelet count 285,000. Sodium 137, potassium 2.9, chlorides 82, CO2 47, BUN 29, and creatinine 0.68. The patient is seen today 08/07/2023 in follow-up on the selective care unit. She is currently resting comfortably in bed. She was quite agitated and restless and combative earlier this morning. She would not keep the BiPAP mask on. She required Haldol, Ativan, morphine and eventually settled down and is currently on the BiPAP 17/5 and 40% FiO2. Unable to obtain arterial blood gases. Her bicarb on the electrolyte profile is 47. White count 8.1. Hemoglobin 9.8. Platelets 201. Sodium 138. Potassium 3.0. BUN 26. Creatinine 0.52. Glucose 284. She is continued on DuoNeb inhalations, Pulmicort and Perforomist inhalations, IV Solu-Medrol. NicoDerm patches in place. Remains on IV diuretics. Currently in a -1.2 L balance. Heparin for DVT prophylaxis. On today's evaluation of , the patient is using the BiPAP on and off during the day and she is alternating it with an oxygen at 4 L per minute nasal cannula. Earlier this morning, the patient has breakfast and she had to come off the BiPAP and she is back on a BiPAP for now. She is diuresing well and the patient remains on IV Lasix 40 mg every 24 hours. The patient has produced ex cellent urine output and the patient has been in a negative fluid balance of 1.9 L for today. Awake and alert and communicating. Serum bicarbs of 43, BUN is at 27 with a creatinine of 0.6, sodiums of 137. On her blood work, the patient is showed some metabolic alkalosis. The patient would benefit from Diamox. She remains on bronchodilators. She remains on systemic steroids and the patient is currently on IV Solu-Medrol 60 mg every 6 hours. She is also on Levemir insulin 20 units at bedtime and 10 units of NovoLog with meals. A follow-up chest x-ray will be obtained within next 24 hours. Objective - Vital Signs Vital signs: Vital Signs Temp 97.9 F 08/08/23 07:41 Pulse 80 08/08/23 08:51 Resp 19 08/08/23 07:41 BP 170/84 08/08/23 07:41 Pulse Ox 96 08/08/23 07:41 FiO2 40 08/08/23 08:25 Intake & Output 08/07/23 08/08/23 08/08/23 18:59 06:59 18:59 Intake Total 240 480 Output Total 1800 400 Balance -1560 -400 480 Weight 80 kg Intake: Oral 240 480 Output: Urine 1800 400 Other: Voiding Method Indwelling Catheter Indwelling Catheter - Exam GENERAL EXAM: Currently calm, cooperative 63-year-old female, on BiPAP, fairly comfortable in no apparent distress. HEAD: Normocephalic. EYES: Normal reaction of pupils, equal size. NOSE: Clear with pink turbinates. THROAT: No erythema or exudates. NECK: No masses, no JVD. CHEST: No chest wall deformity. LUNGS: Equal air entry with bilateral end expiratory wheeze, diminished. CVS: S1 and S2 normal with no audible murmur, regular rhythm. ABDOMEN: No hepatosplenomegaly, normal bowel sounds, no guarding or rigidity. SPINE: No scoliosis or deformity SKIN: No rashes CENTRAL NERVOUS SYSTEM: No focal deficits, tone is normal in all 4 extremities. EXTREMITIES: There is no peripheral edema. No clubbing, no cyanosis. Peripheral pulses are intact. - Labs CBC & Chem 7: 08/07/23 07:22 08/08/23 09:13 Labs: Abnormal Lab Results - Last 24 Hours (Table) 08/06/23 08/07/23 08/07/23 Range/Units 08:53 11:57 16:45 POC Glucose (mg/dL) 383 H 316 H (70-110) mg/dL Iron 38 L (50-170) UG/DL 08/07/23 08/08/23 Range/Units 21:02 05:56 POC Glucose (mg/dL) 278 H 146 H (70-110) mg/dL Iron (50-170) UG/DL Assessment and Plan Plan: Acute hypoxemic and hypercapnic respiratory failure currently on BiPAP, Chest x- ray on arrival showed bibasilar atelectasis versus infiltrates. There was cardiomegaly with mild pulmonary vascular congestion. NT proBNP was elevated at 7400. The patient's clinically improving Altered mental status secondary to hypercapnic respiratory failure, improved Acute exacerbation of chronic obstructive pulmonary disease, improving Acute exacerbation of diastolic congestive heart failure, currently being diuresed with IV Lasix with excellent urine output Frequent falls Altered mental status, probably related to metabolic encephalopathy and hypercapnic respiratory failure Chronic hypoxemic respiratory failure Chronic ongoing nicotine dependence Diabetes mellitus type 2 Benign essential hypertension Hyperlipidemia Osteoarthritis Poor overall functional performance based on the above-mentioned multiple comorbidities Plan: Patient is doing well. Clinically improving. Continue BiPAP on and off during the day at the same settings Continue diuretics with IV Lasix and the patient is a negative fluid balance We'll give the patient 2 doses of Diamox every 12 hours 500 mg each Repeat chest x-ray in the morning Continue bronchodilators and steroids Continue antibiotic coverage Continue the current medications We will continue to follow
[2023-08-08] MEDS: POTASSIUM CHLORIDE ER 20 MEQ TAB.ER PO SCH ×3 (14:59→18:11)
--- NOTE | 2023-08-08 15:05 | P.PN ---
Subjective Progress Note Date: 08/08/23 This is a 63-year-old female with history of heart failure and COPD as well as diabetes mellitus. Patient comes into the hospital for recurrent falls and altered mental status she does have a large bruise on her left upper thigh and lower trunk. Patient is currently on the selective unit she has been restless and combative and agitated she does require Haldol for sedation. She continues on the BiPAP with an FiO2 of 40%. Patient is being considered for possible intensive care unit/mechanical intubation if she does not improve. CO2 is slightly improved today of 43, blood glucoses up in the 400s. Patient continues on sliding scale insulin with 10 units with meals and at bedtime as well as 20 units of Levemir at bedtime. Continues on high dose of IV Solu-Medrol 60 mg every 6 hours as well as IV Lasix daily. Pulmonary is following closely. Review of Systems Unable to completely review of systems at this time patient is sedated and on BiPAP PHYSICAL EXAMINATION: GENERAL: Sedated on BiPAP restless and thrashing, not in any acute distress. Well developed, well nourished. HEENT: Pupils are round and equally reacting to light. EOMI. No scleral icterus. No conjunctival pallor. Normocephalic, atraumatic. No pharyngeal erythema. No thyromegaly. CARDIOVASCULAR: S1 and S2 present. No murmurs, rubs, or gallops. PULMONARY: Chest is clear to auscultation, no wheezing or crackles. ABDOMEN: Soft, nontender, nondistended, normoactive bowel sounds. No palpable organomegaly. MUSCULOSKELETAL: No joint swelling or deformity. EXTREMITIES: No cyanosis, clubbing, or pedal edema. NEUROLOGICAL: Gross neurological examination did not reveal any focal deficits. Diffuse weakness SKIN: No rashes. Large bruise to the left thigh/buttock/trunk Assessment Acute CHF exacerbation diastolic dysfunction with EF of 55-60% on IV Lasix Acute COPD exacerbation Acute on chronic hypoxemic and hypercapnic respiratory failure requiring 40% FiO2 BiPAP patient is maintained on 4-5 L of home oxygen. Elevated troponin secondary to type II WI from demand ischemia/x-ray failure from a COPD exacerbation Altered mental status due to a metabolic encephalopathy secondary to hypercarbia Coagulopathy with INR 1.9 on admission down to 1.3. Steroid induced hyperglycemia Diabetes mellitus Hypertension Hyperlipidemia Obesity with BMI of 34.3. GI prophylaxis DVT prophylaxis Full Code Plan Continue with BiPAP therapy IV Lasix daily IV Solu-Medrol Pulmonary following closely Continue accuchecks ACHS and sliding/scheduled insulin. Levemir will be increased. PT/OT consultation Repeat labs in AM.. The impression and plan of care has been dictated by Marla Lopez, Nurse Practitioner as directed. Dr. Elena MD I have performed a history and physical examination and medical decision making of this patient, discussed the same with the dictator, and agree with the dictators assessment and plan as written, documented as a scribe. Based on total visit time, I have performed more than 50% of this visit. Objective - Vital Signs Vital signs: Vital Signs Temp 97.9 F 08/08/23 07:41 Pulse 80 08/08/23 08:51 Resp 19 08/08/23 07:41 BP 170/84 08/08/23 07:41 Pulse Ox 96 08/08/23 07:41 FiO2 40 08/08/23 08:25 Intake & Output 08/07/23 08/08/23 08/08/23 18:59 06:59 18:59 Intake Total 240 480 Output Total 1800 400 Balance -1560 -400 480 Weight 80 kg Intake: Oral 240 480 Output: Urine 1800 400 Other: Voiding Method Indwelling Catheter Indwelling Catheter - Labs CBC & Chem 7: 08/07/23 07:22 08/08/23 09:13 Labs: Abnormal Lab Results - Last 24 Hours (Table) 08/06/23 08/07/23 08/07/23 Range/Units 08:53 11:57 16:45 POC Glucose (mg/dL) 383 H 316 H (70-110) mg/dL Iron 38 L (50-170) UG/DL 08/07/23 08/08/23 Range/Units 21:02 05:56 POC Glucose (mg/dL) 278 H 146 H (70-110) mg/dL Iron (50-170) UG/DL Assessment and Plan Time with Patient: Less than 30
[2023-08-08 16:39] LABS: Glucose,Whole Blood 364 mg/dL (70-110)
[2023-08-08 20:12] LABS: Glucose,Whole Blood 442 mg/dL (70-110)
[2023-08-08] MEDS ORDERED: INSULIN DETEMIR (LEVEMIR) 100 UNIT/ML SYR SQ SCH (21:00)
[2023-08-08] MEDS ORDERED: INSULIN ASPART (NovoLOG) 100 UNIT/ML VIAL SQ ONE (21:15)
[2023-08-08] MEDS: MORPHINE SULFATE 4 MG/ML SYRINGE IVP PRN (22:00)
[2023-08-09] MEDS: IPRATROPIUM-ALBUTEROL 3 ML NEB INHALATION SCH ×6 (00:13→21:32)
[2023-08-09] MEDS: methylPREDNISolone SOD SUCCI 125 MG/2 ML VIAL IV SCH ×4 (05:06→23:34)
[2023-08-09 05:58] LABS: Glucose,Whole Blood 354 mg/dL (70-110)
[2023-08-09] MEDS: INSULIN ASPART (NovoLOG) 100 UNIT/ML VIAL SQ SCH ×8 (06:11→20:50)
[2023-08-09] MEDS: NICOTINE 21MG/24HR PATCH TRANSDERM SCH (08:25)
[2023-08-09] MEDS: levETIRAcetam IV 500 MG/5 ML VIAL IVP SCH ×2 (08:26→20:51)
[2023-08-09] MEDS: HEPARIN SODIUM,PORCINE 5,000 UNIT/ML 1 ML VIAL SQ SCH ×2 (08:26→23:34)
[2023-08-09] MEDS: allopurinoL 100 MG TAB PO SCH (08:26)
[2023-08-09] MEDS: ASPIRIN 325 MG TAB PO SCH (08:26)
[2023-08-09] MEDS: FAMOTIDINE 20 MG/2 ML VIAL IV SCH ×2 (08:26→20:51)
[2023-08-09] MEDS: FUROSEMIDE 10 MG/ML 4 ML VIAL IV SCH (08:26)
[2023-08-09] MEDS: BUDESONIDE 1 MG/2 ML NEBU INHALATION SCH ×2 (08:45→21:32)
[2023-08-09] MEDS: FORMOTEROL FUMARATE 20 MCG/2 ML NEBU INHALATION SCH ×2 (08:45→21:32)
[2023-08-09 09:21] LABS: African American GFR (CKD) >90 (>60 ml/min/1.73 sqM); Anion Gap 7 mmol/L; Blood Urea Nitrogen 27 mg/dL (7-17); Calcium 8.7 mg/dL (8.4-10.2); Carbon Dioxide 35 mmol/L (22-30); Chloride 96 mmol/L (98-107); Glucose 302 mg/dL (74-99); Non-African American GFR(CKD) 89 (>60 ml/min/1.73 sqM); Potassium 3.6 mmol/L (3.5-5.1); Sodium 138 mmol/L (137-145)
[2023-08-09] MEDS ORDERED: POTASSIUM CHLORIDE ER 20 MEQ TAB.ER PO STA (09:34)
--- NOTE | 2023-08-09 10:07 | XR ---
EXAMINATION TYPE: XR chest 1V DATE OF EXAM: 08/09/2023 COMPARISON: 08/03/2023 HISTORY: 63-year-old female CHF follow-up TECHNIQUE: Single frontal view of the chest is obtained. FINDINGS: Moderate cardiomegaly. Dextroconvexed scoliosis with a left-sided Butler levi redemonst rated. Rightward patient rotation. Interstitial density shows some improvement. There may be underlyi ng [id number] effusions which are similar. IMPRESSION: Mild pulmonary vascular congestion may be slightly improved. Ongoing small to moderate b ilateral pleural effusions with adjacent atelectasis and/or consolidation.
[2023-08-09 11:21] LABS: Glucose,Whole Blood 463 mg/dL (70-110)
[2023-08-09] MEDS ORDERED: INSULIN ASPART (NovoLOG) 100 UNIT/ML VIAL SQ ONE (11:46)
--- NOTE | 2023-08-09 12:38 | P.PN ---
Subjective Progress Note Date: 08/09/23 I am seeing this patient in new consultation today is 08/04/2023 for acute hypoxemic and hypercapnic respiratory failure on BiPAP. Shijen is currently in the emergency room, awaiting a bed on the Cardiac floor. Patient is a 62-year-old white female with past medical history significant for oxygen dependent COPD, congestive heart failure, hypertension, dyslipidemia, type 2 diabetes mellitus, glaucoma, chronic low back pain, and chronic and ongoing tobacco dependence. She has had multiple recent hospital admissions this year for similar issues. Patient is currently lethargic, and I'm unable to elicit much information from her. Apparently, the patient was brought into the hospital by EMS after being found down on the bed room floor at her home. She was confused and possibly remained there overnight. She does have bruising on her left hip and right arm. Patient had an extensive workup on arrival to the emergency room. CT of the brain and C-spine without contrast showed no acute intracranial hemorrhage or mass effect, no fracture or dislocation of the C-spine. X-rays of the right hip and and right hand showed no acute fractures. Patient is currently sitting up in bed, she is lethargic, on BiPAP with settings 16/5 and FiO2 of 35%. respiratory rate is currently 12 breaths per minute, and she achieves tidal volumes around 600 ml. She opens her eyes to vigorous verbal stimulation, but q uickly goes back to sleep. Most recent ABG shows pO2 of 56, pCO2 83, and pH of 7.44. Chest x-ray on arrival showed bibasilar atelectasis versus infiltrate. There was cardiomegaly with mild pulmonary vascular congestion. CBC shows some mild leukocytosis with a WBC count of 12, hemoglobin 11.1, hematocrit 38.1, platelets 483. BMP shows sodium of 141, potassium 3.5, chloride 85, serum bicarb 42, BUN 38, creatinine 0.69, glucose 172. Procalcitonin level was elevated at 0.26. Troponin was mildly elevated and trending up at 0.037, 0.125, and 0.141 respectively. NT proBNP was elevated at 7400. Urinalysis not concerning for UTI. Urine toxicology screen positive for opiates. Patient's prognosis is guarded related to above-mentioned comorbidities. Progress note dated 08/05/2023. The patient is seen today in room 367. Currently, the patient's on BiPAP, with settings of 17/5, and 50%. The patient continues on Rocephin, and azithromycin. She has a history of oxygen-dependent COPD, CHF, hypertension, hyperlipidemia, diabetes, glaucoma, chronic low back pain, and chronic and ongoing tobacco dependence. The patient was seen yesterday in consultation. Currently labs include a white count 8.5, hemoglobin 10.4, hematocrit 36.8, and a normal platelet count. Sodium 140, potassium 3.6, chlorides 86, CO2 39, BUN 36, creatinine 0.61. Chest x-ray revealed bibasilar infiltrates or atelectasis. N- terminal proBNP was elevated at greater than 7000. Pro-calcitonin level was elevated at 0.26. Progress note dated 08/06/2023. The patient is seen today in room 367. Currently, the patient's on 4 L of oxygen. She is receiving saline at 10 mL an hour. She didn't use BiPAP last night, with settings of 17/5, and 40%. She is much more awake and alert. She has a history of COPD, which is oxygen dependent, congestive heart failure, hypertension, hyperlipidemia, diabetes mellitus, chronic low back pain, and ongoing tobacco use, and nicotine dependence. White count 10.7, hemoglobin 10.4, hematocrit 37.8, platelet count 285,000. Sodium 137, potassium 2.9, chlorides 82, CO2 47, BUN 29, and creatinine 0.68. The patient is seen today 08/07/2023 in follow-up on the selective care unit. She is currently resting comfortably in bed. She was quite agitated and restless and combative earlier this morning. She would not keep the BiPAP mask on. She required Haldol, Ativan, morphine and eventually settled down and is currently on the BiPAP 17/5 and 40% FiO2. Unable to obtain arterial blood gases. Her bicarb on the electrolyte profile is 47. White count 8.1. Hemoglobin 9.8. Platelets 201. Sodium 138. Potassium 3.0. BUN 26. Creatinine 0.52. Glucose 284. She is continued on DuoNeb inhalations, Pulmicort and Perforomist inhalations, IV Solu-Medrol. NicoDerm patches in place. Remains on IV diuretics. Currently in a -1.2 L balance. Heparin for DVT prophylaxis. On today's evaluation of , the patient is using the BiPAP on and off during the day and she is alternating it with an oxygen at 4 L per minute nasal cannula. Earlier this morning, the patient has breakfast and she had to come off the BiPAP and she is back on a BiPAP for now. She is diuresing well and the patient remains on IV Lasix 40 mg every 24 hours. The patient has produced ex cellent urine output and the patient has been in a negative fluid balance of 1.9 L for today. Awake and alert and communicating. Serum bicarbs of 43, BUN is at 27 with a creatinine of 0.6, sodiums of 137. On her blood work, the patient is showed some metabolic alkalosis. The patient would benefit from Diamox. She remains on bronchodilators. She remains on systemic steroids and the patient is currently on IV Solu-Medrol 60 mg every 6 hours. She is also on Levemir insulin 20 units at bedtime and 10 units of NovoLog with meals. A follow-up chest x-ray will be obtained within next 24 hours. On today's evaluation of 08/09/2023, the patient is doing well. She was able to come off the BiPAP to nasal cannula and she continues to use the BiPAP on and off during the day. The patient while on the BiPAP is at a pressure of 17/5. Once off the BiPAP, the patient is utilizing oxygen at 3 L/m nasal cannula. She continues to produce excellent amount of urine output while being on IV Lasix. She was also given 2 doses of Diamox and the patient's serum bicarb is down to 35, sodium is at 138, potassium is at 3.8. The patient is currently on 3 L of oxygen by nasal cannula with a pulse ox of 97% and she is communicating effectively and she has no specific complaints. Mental status is also improved. The menstrual with balance over the past 24 hours is -1.9 L and the patient is headed for another at least 2 L negative fluid balance over the next 24 hours. She is on IV Rocephin as a and panic antibiotic coverage. She remains on IV Solu-Medrol. She remains on Lasix 40 mg IV every 24 hours. Potassium is being replaced. The chest x-ray showing improvement in the volume status in the interstitial edema bilaterally and there is improvement aeration bilaterally. Objective - Vital Signs Vital signs: Vital Signs Temp 98.7 F 08/09/23 07:49 Pulse 88 08/09/23 09:05 Resp 14 08/09/23 07:49 BP 132/80 08/09/23 07:49 Pulse Ox 97 08/09/23 08:46 FiO2 40 08/09/23 07:49 Intake & Output 08/08/23 08/09/23 08/09/23 18:59 06:59 18:59 Intake Total 1080 110 Output Total 1200 1850 600 Balance -120 -1850 -490 Weight 83.5 kg Intake: Oral 1080 110 Output: Urine 1200 1850 600 Other: Voiding Method Indwelling Catheter Indwelling Catheter - Exam GENERAL EXAM: Currently calm, cooperative 63-year-old female, on 3 L of oxygen nasal cannula, calm and comfortable. HEAD: Normocephalic. EYES: Normal reaction of pupils, equal size. NOSE: Clear with pink turbinates. THROAT: No erythema or exudates. NECK: No masses, no JVD. CHEST: No chest wall deformity. LUNGS: Equal air entry with bilateral end expiratory wheeze, diminished. CVS: S1 and S2 normal with no audible murmur, regular rhythm. ABDOMEN: No hepatosplenomegaly, normal bowel sounds, no guarding or rigidity. SPINE: No scoliosis or deformity SKIN: No rashes CENTRAL NERVOUS SYSTEM: No focal deficits, tone is normal in all 4 extremities. EXTREMITIES: There is no peripheral edema. No clubbing, no cyanosis. Peripheral pulses are intact. - Labs CBC & Chem 7: 08/07/23 07:22 08/09/23 08:32 Labs: Abnormal Lab Results - Last 24 Hours (Table) 08/08/23 08/08/23 08/08/23 Range/Units 09:13 11:29 16:37 Potassium 3.4 L (3.5-5.1) mmol/L Chloride 86 L (98-107) mmol/L Carbon Dioxide 43 H* (22-30) mmol/L BUN 27 H (7-17) mg/dL Glucose 435 H (74-99) mg/dL POC Glucose (mg/dL) 420 H 364 H (70-110) mg/dL Calcium 8.2 L (8.4-10.2) mg/dL 1008/09/23 08/09/23 Range/Units 20:11 05:54 08:32 Potassium (3.5-5.1) mmol/L Chloride 96 L (98-107) mmol/L Carbon Dioxide 35 H (22-30) mmol/L BUN 27 H (7-17) mg/dL Glucose 302 H (74-99) mg/dL POC Glucose (mg/dL) 442 H 354 H (70-110) mg/dL Calcium (8.4-10.2) mg/dL Assessment and Plan Plan: Acute hypoxemic and hypercapnic respiratory failure currently on BiPAP, Chest x- ray on arrival showed bibasilar atelectasis versus infiltrates. There was cardiomegaly with mild pulmonary vascular congestion. NT proBNP was elevated at 7400. The patient's clinically improving, the patient is currently off the BiPAP and she is using the BiPAP on and off during the day. Otherwise she is back on oxygen at 3 L/m nasal cannula. Chest x-ray continues to improve. The patient is a negative fluid balance and she is receiving IV Lasix Altered mental status secondary to hypercapnic respiratory failure, improved Acute exacerbation of chronic obstructive pulmonary disease, improving Acute exacerbation of diastolic congestive heart failure, currently being diuresed with IV Lasix with excellent urine output Frequent falls Altered mental status, probably related to metabolic encephalopathy and hypercapnic respiratory failure Chronic hypoxemic respiratory failure Chronic ongoing nicotine dependence Diabetes mellitus type 2 Benign essential hypertension Hyperlipidemia Osteoarthritis Poor overall functional performance based on the above-mentioned multiple comorbidities Plan: Patient is doing well. Clinically improving. Continue IV Lasix for another 24 hours Diamox was given Continue BiPAP on and off during the day at the same settings Continue diuretics with IV Lasix and the patient is a negative fluid balance Repeat chest x-ray in the morning shows improvement in the volume status Continue bronchodilators and steroids We'll start tapering the steroids as of tomorrow Continue antibiotic coverage Continue the current medications We will continue to follow
[2023-08-09 13:50] VITALS: BMI 31.6
--- NOTE | 2023-08-09 15:26 | P.PN ---
Subjective Progress Note Date: 08/09/23 This is a 63-year-old female with history of heart failure and COPD as well as diabetes mellitus. Patient comes into the hospital for recurrent falls and altered mental status she does have a large bruise on her left upper thigh and lower trunk. Patient is currently on the selective unit she has been restless and combative and agitated she does require Haldol for sedation. She continues on the BiPAP with an FiO2 of 40%. Patient is being considered for possible intensive care unit/mechanical intubation if she does not improve. CO2 is slightly improved today of 43, blood glucoses up in the 400s. Patient continues on sliding scale insulin with 10 units with meals and at bedtime as well as 20 units of Levemir at bedtime. Continues on high dose of IV Solu-Medrol 60 mg every 6 hours as well as IV Lasix daily. Pulmonary is following closely. 08/09/2023 Patient is evaluated today sitting up in chair. Patient has improved since yesterday and currently off BiPAP. She is wearing 4L of oxygen via nasal cannula. She is alert x 3. Her lungs are tight no wheezing auscultated. Remains on IV ceftriaxone empirically. CO2 down to 35. Remains hyperglycemic 300-400s secondary to high dose steroid use. Chest xray today showing mild pulmonary vascular congestion may be slightly improved. Small to moderate bilateral pleural effusions with adj. atelectasis and/or consolidation. Patient remains on IV lasix. Review of Systems Constitutional: Denied any fatigue denied any fever. Cardio vascular: denied any chest pain, palpitations Gastrointestinal: denied any nausea, vomiting, diarrhea Pulmonary: Denied any shortness of breath cough Neurologic denied any new focal deficits All inpatient medications were reviewed and appropriate changes in these medications as dictated in the interval history and assessment and plan. PHYSICAL EXAMINATION: GENERAL: Sedated on BiPAP restless and thrashing, not in any acute distress. Well developed, well nourished. HEENT: Pupils are round and equally reacting to light. EOMI. No scleral icterus. No conjunctival pallor. Normocephalic, atraumatic. No pharyngeal erythema. No thyromegaly. CARDIOVASCULAR: S1 and S2 present. No murmurs, rubs, or gallops. PULMONARY: Lungs are diminished with minimal aeration. ABDOMEN: Soft, nontender, nondistended, normoactive bowel sounds. No palpable organomegaly. MUSCULOSKELETAL: No joint swelling or deformity. EXTREMITIES: No cyanosis, clubbing, or pedal edema. NEUROLOGICAL: Gross neurological examination did not reveal any focal deficits. Diffuse weakness SKIN: No rashes. Large bruise to the left thigh/buttock/trunk Assessment Acute CHF exacerbation diastolic dysfunction with EF of 55-60% on IV Lasix Acute COPD exacerbation Acute on chronic hypoxemic and hypercapnic respiratory failure requiring 40% F iO2 BiPAP patient is maintained on 4-5 L of home oxygen. Elevated troponin secondary to type II LA from demand ischemia/x-ray failure from a COPD exacerbation Altered mental status due to a metabolic encephalopathy secondary to hypercarbia Coagulopathy with INR 1.9 on admission down to 1.3. Steroid induced hyperglycemia Diabetes mellitus Hypertension Hyperlipidemia Obesity with BMI of 34.3. GI prophylaxis DVT prophylaxis Full Code Plan Continue with BiPAP therapy prn weaned back to home oxygen 4L nasal cannula IV Lasix daily IV Solu-Medrol Pulmonary following closely Continue accuchecks ACHS and sliding/scheduled insulin. Levemir will be increased. PT/OT consultation Repeat labs in AM. Possible D/C home in the next 24 hours The impression and plan of care has been dictated by Marla Lopez, Nurse Practitioner as directed. Dr. Elena MD I have performed a history and physical examination and medical decision making of this patient, discussed the same with the dictator, and agree with the dictators assessment and plan as written, documented as a scribe. Based on total visit time, I have performed more than 50% of this visit. Objective - Vital Signs Vital signs: Vital Signs Temp 98.7 F 08/09/23 07:49 Pulse 88 08/09/23 09:05 Resp 14 08/09/23 07:49 BP 132/80 08/09/23 07:49 Pulse Ox 97 08/09/23 08:46 FiO2 40 08/09/23 07:49 Intake & Output 08/08/23 08/09/23 08/09/23 18:59 06:59 18:59 Intake Total 1080 Output Total 1200 1850 Balance -120 -1850 Weight 83.5 kg Intake: Oral 1080 Output: Urine 1200 1850 Other: Voiding Method Indwelling Catheter Indwelling Catheter - Labs CBC & Chem 7: 08/07/23 07:22 08/09/23 08:32 Labs: Abnormal Lab Results - Last 24 Hours (Table) 08/08/23 08/08/23 08/08/23 Range/Units 09:13 11:29 16:37 Potassium 3.4 L (3.5-5.1) mmol/L Chloride 86 L (98-107) mmol/L Carbon Dioxide 43 H* (22-30) mmol/L BUN 27 H (7-17) mg/dL Glucose 435 H (74-99) mg/dL POC Glucose (mg/dL) 420 H 364 H (70-110) mg/dL Calcium 8.2 L (8.4-10.2) mg/dL 08/08/23 08/09/23 08/09/23 Range/Units 20:11 05:54 08:32 Potassium (3.5-5.1) mmol/L Chloride 96 L (98-107) mmol/L Carbon Dioxide 35 H (22-30) mmol/L BUN 27 H (7-17) mg/dL Glucose 302 H (74-99) mg/dL POC Glucose (mg/dL) 442 H 354 H (70-110) mg/dL Calcium (8.4-10.2) mg/dL Assessment and Plan Time with Patient: Less than 30
[2023-08-09 16:32] LABS: Glucose,Whole Blood 287 mg/dL (70-110)
[2023-08-09 20:21] LABS: Glucose,Whole Blood 377 mg/dL (70-110)
[2023-08-09] MEDS: INSULIN DETEMIR (LEVEMIR) 100 UNIT/ML SYR SQ SCH (21:12)
[2023-08-09] MEDS: MORPHINE SULFATE 4 MG/ML SYRINGE IVP PRN (22:25)
[2023-08-10] MEDS: IPRATROPIUM-ALBUTEROL 3 ML NEB INHALATION SCH ×6 (00:40→21:15)
[2023-08-10] MEDS: MORPHINE SULFATE 4 MG/ML SYRINGE IVP PRN ×2 (02:57→23:53)
[2023-08-10] MEDS: methylPREDNISolone SOD SUCCI 125 MG/2 ML VIAL IV SCH ×2 (05:15→11:39)
[2023-08-10 06:25] LABS: Glucose,Whole Blood 310 mg/dL (70-110)
[2023-08-10] MEDS: INSULIN ASPART (NovoLOG) 100 UNIT/ML VIAL SQ SCH ×8 (07:02→20:57)
[2023-08-10 08:10] LABS: Anisocytosis Moderate; Basophils % (A) 0 %; Eosinophils % (A) 0 %; HCT 35.9 % (34.0-46.0); HGB 10.6 gm/dL (11.4-16.0); Hypochromasia Marked; Lymphocytes # (A) 0.2 k/uL (1.0-4.8); Lymphocytes % (A) 2 %; MCH 23.6 pg (25.0-35.0); MCHC 29.6 g/dL (31.0-37.0); Mean Platelet Volume 9.4; Microcytosis Moderate; Monocytes # (A) 0.3 k/uL (0-1.0); Monocytes % (A) 2 %; Neutrophils # (A) 11.4 k/uL (1.3-7.7); Neutrophils % (A) 95 %; Platelet Count 211 k/uL (150-450); Poikilocytosis Moderate; RBC 4.49 m/uL (3.80-5.40)
[2023-08-10] MEDS: levETIRAcetam IV 500 MG/5 ML VIAL IVP SCH (08:29)
[2023-08-10] MEDS: HEPARIN SODIUM,PORCINE 5,000 UNIT/ML 1 ML VIAL SQ SCH ×3 (08:29→23:53)
[2023-08-10] MEDS: NICOTINE 21MG/24HR PATCH TRANSDERM SCH (08:30)
[2023-08-10] MEDS: ASPIRIN 325 MG TAB PO SCH (08:30)
[2023-08-10] MEDS: allopurinoL 100 MG TAB PO SCH (08:30)
[2023-08-10 08:31] LABS: African American GFR (CKD) >90 (>60 ml/min/1.73 sqM); Anion Gap 6 mmol/L; Blood Urea Nitrogen 29 mg/dL (7-17); Calcium 9.1 mg/dL (8.4-10.2); Carbon Dioxide 29 mmol/L (22-30); Chloride 101 mmol/L (98-107); Glucose 293 mg/dL (74-99); Magnesium 1.6 mg/dL (1.6-2.3); Non-African American GFR(CKD) >90 (>60 ml/min/1.73 sqM); Potassium 4.5 mmol/L (3.5-5.1); Sodium 136 mmol/L (137-145)
[2023-08-10] MEDS: FUROSEMIDE 10 MG/ML 4 ML VIAL IV SCH (08:36)
[2023-08-10] MEDS: FAMOTIDINE 20 MG/2 ML VIAL IV SCH ×2 (08:37→20:57)
[2023-08-10] MEDS ORDERED: levETIRAcetam 500 MG TAB PO SCH (09:00)
[2023-08-10] MEDS: BUDESONIDE 1 MG/2 ML NEBU INHALATION SCH ×2 (09:16→21:15)
[2023-08-10] MEDS: FORMOTEROL FUMARATE 20 MCG/2 ML NEBU INHALATION SCH ×2 (09:16→21:15)
[2023-08-10] MEDS: MAGNESIUM SULFATE-D5W PMX 1 GM in DEXTROSE/WATER 1 100ML.BAG IVPB SCH ×2 (11:39→13:22)
[2023-08-10] MEDS ORDERED: INSULIN ASPART (NovoLOG) 100 UNIT/ML VIAL SQ ONE (11:54)
--- NOTE | 2023-08-10 12:13 | P.DS ---
Providers Date of admission: 08/03/23 14:43 Attending physician: Arthur Ponce MD Consults: 08/03/23 14:43 Consult Physician Urgent Consulting Provider: Louis Miller Consult Reason/Comments: elevated trop Do you want consulting provider notified?: Yes 08/03/23 20:28 Consult Physician Urgent Consulting Provider: Nader Patel Consult Reason/Comments: bipap Do you want consulting provider notified?: Already Contacted Primary care physician: Shun Simmons Hospital Course: Final Diagnosis Acute CHF exacerbation diastolic dysfunction with EF of 55-60% treated with IV lasix Acute COPD exacerbation Acute on chronic hypoxemic and hypercapnic respiratory failure requiring 40% FiO2 BiPAP patient is maintained on 4-5 L of home oxygen. Elevated troponin secondary to type II CA from demand ischemia/x-ray failure from a COPD exacerbation Altered mental status due to a metabolic encephalopathy secondary to hypercarbia Coagulopathy with INR 1.9 on admission down to 1.3. Steroid induced hyperglycemia Diabetes mellitus Hypertension Hyperlipidemia Obesity with BMI of 34.3. GI prophylaxis DVT prophylaxis Full Code Discharge Disposition patient is stable for discharge to subacute rehab. Boucher catheter has been discontinued. Monitor for urinary retention. Patient has been weaned back down to her home oxygen dose of 4-5L nasal cannula. Patient to follow up with Dr. Simmons on discharge, and follow up with Dr. Esquivel in 1 to 2 weeks. Patient will need sleep study outpatient for evaluation of obstructive sleep apnea. BiPAP can be used as needed the the rehab 10/13 with 40% FiO2. Recommend to repeat labs in 2 to 3 days. Hospital Course This is a pleasant 63 years old female with past medical history of Heart Failure, COPD, Diabetes Mellitus, Eye Disorder, GERD/Reflux, Hyperlipidemia, Hypertension, Osteoarthritis. Patient comes into the hospital for recurrent falls and altered mental status as well as dyspnea and was found to be hypoxic. She does have a large bruise on her left upper thigh and lower trunk. X-ray were negative for fractures in these areas. PH 7.41 pCO2 is 75. Mild leukocytosis as well as tachycardia and lactic acidosis of 5.5. Troponin elevation of 0.141 and proBNP of 7440. Chest x-ray showing bilateral basal infiltrates suspicious for pneumonia versus atelectasis. CT of the head and neck: No acute fracture or dislocation of the cervical spine. Multilevel degenerative disease. No acute intracranial hemorrhage mass effect or midline shift. Patient was admitted to the hospital under medicine with pulmonary and cardiology consutlation. Patient was placed on BiPAP 40% FiO2. Patient was considered for possible intensive care unit/mechanical intubation, however CO2 levels improved and today have normalized. Patient was treated with high dose of IV solumedrol, IV lasix and empiric antibiotics with IV ceftrixone for the acute COPD exacerbation. Patient had procalcitonin level of 0.26 which not suggestive of bacterial infection did complete 7 days of IV ceftriaxone and will not require antibiotics on discharge. Electrolytes are improve sodium 136, potassium 4.5, BUN 29, creatinine 0.52, Blood glucose has been in the 300-400s due to the high dose of steroids. Expected to improve with prednisone taper and levemir will need to be adjusted. Patient had indwelling boucher catheter placed while she was on the BiPAP due to the severe respiratory distress. This will be continued prior to discharge. White count is 12.0. Afebrile. Currently alert x 3. Has been cleared for discharge and patient is a 2 person assist and will require subacute rehab on discharge. Patient was reluctant for rehab. Pulmonary has okay for patient to use BiPAP as needed overnight at the rehab facility. 12/7 with 40% FiO2 and will not require BiPAP on discharge from rehab but will continue on home oxygen. Pulmonary will see the patient in the office for sleep study and further recommendations. Cardiology has cleared the patient felt the troponin elevation was due to supply demand ischemia. Patient is given oral prednisone taper for discharge and will continue on inhaled symbicort BID with albuterol as needed. Today patient denies shortness of breath, no chest pain. No nausea vomiting or diarrhea. Patients lungs are diminished no wheezing or crackles noted. S1 S2 auscultated. Abdomen is soft and nontender. Patient will be discharge to rehab. Please see medication reconciliation for a list of current medication. Thank you for allowing us to participate in the care of this patient. The impression and plan of care has been dictated by Marla Lopez, Nurse Practitioner as directed. Dr. Elena MD I have performed a history and physical examination and medical decision making of this patient, discussed the same with the dictator, and agree with the dictators assessment and plan as written, documented as a scribe. Based on total visit time, I have performed more than 50% of this visit. Patient Condition at Discharge: Fair Plan - Discharge Summary Discharge Rx Participant: Yes New Discharge Prescriptions: New Ipratropium-Albuterol Nebulize [Duoneb 0.5 mg-3 mg/3 ml Soln] 3 ml INHALATION RT-Q4H each predniSONE 0 mg PO DIRECTED 14 Days #47 tab Continue Cyclobenzaprine [Flexeril] 10 mg PO HS Omeprazole [PriLOSEC] 20 mg PO DAILY Fenofibrate 160 mg PO DAILY allopurinoL [Allopurinol] 100 mg PO DAILY Glimepiride [Amaryl] 8 mg PO DAILY rOPINIRole HCL [Requip] 0.25 mg PO HS Atorvastatin [Lipitor] 80 mg PO HS Ergocalciferol (Vitamin D2) [Drisdol (50,000 Iu)] 1,250 mcg PO MO levETIRAcetam [Keppra] 1,500 mg PO BID Budesonide-Formot 160-4.5 Mcg [Symbicort 160-4.5 Mcg Inhaler] 2 puff INHALATION RT-BID 30 Days #1 each Metoprolol Tartrate [Lopressor] 25 mg PO BID #60 tab Albuterol Inhaler [Ventolin Hfa Inhaler] 2 puff INHALATION RT-Q6H PRN PRN Reason: Shortness Of Breath Or Wheezing HYDROcodone/APAP 5-325MG [[place] 5-325] 1 tab PO BID PRN #4 tab PRN Reason: Pain Magnesium Oxide [Magox 400] 400 mg PO BID metFORMIN HCL [Glucophage] 1,000 mg PO BID Empagliflozin [Jardiance] 25 mg PO DAILY Nicotine 21Mg/24Hr Patch [Habitrol] 1 patch TRANSDERM DAILY #4 patch Spironolactone [Aldactone] 25 mg PO DAILY #30 tab Furosemide [Lasix] 40 mg PO DAILY #60 tab Pregabalin [Lyrica] 150 mg PO BID #4 cap Changed Insulin Detemir [Levemir Flexpen] 8 units SQ HS #35 each Discontinued Potassium Chloride 10 meq PO DAILY Discharge Medication List Cyclobenzaprine [Flexeril] 10 mg PO HS 07/11/14 [History] Omeprazole [PriLOSEC] 20 mg PO DAILY 08/05/14 [History] Fenofibrate 160 mg PO DAILY 05/27/16 [History] allopurinoL [Allopurinol] 100 mg PO DAILY 05/27/16 [History] Glimepiride [Amaryl] 8 mg PO DAILY 06/28/17 [History] rOPINIRole HCL [Requip] 0.25 mg PO HS 06/02/18 [History] Atorvastatin [Lipitor] 80 mg PO HS 01/21/22 [History] Empagliflozin [Jardiance] 25 mg PO DAILY 01/21/22 [History] Ergocalciferol (Vitamin D2) [Drisdol (50,000 Iu)] 1,250 mcg PO MO 01/21/22 [History] Magnesium Oxide [Magox 400] 400 mg PO BID 01/21/22 [History] metFORMIN HCL [Glucophage] 1,000 mg PO BID 01/21/22 [History] levETIRAcetam [Keppra] 1,500 mg PO BID 04/08/23 [History] Nicotine 21Mg/24Hr Patch [Habitrol] 1 patch TRANSDERM DAILY #4 patch 04/18/23 [Rx] Budesonide-Formot 160-4.5 Mcg [Symbicort 160-4.5 Mcg Inhaler] 2 puff INHALATION RT-BID 30 Days #1 each 05/13/23 [Rx] Furosemide [Lasix] 40 mg PO DAILY #60 tab 06/24/23 [Rx] Metoprolol Tartrate [Lopressor] 25 mg PO BID #60 tab 06/24/23 [Rx] Spironolactone [Aldactone] 25 mg PO DAILY #30 tab 06/24/23 [Rx] Albuterol Inhaler [Ventolin Hfa Inhaler] 2 puff INHALATION RT-Q6H PRN 08/03/23 [History] HYDROcodone/APAP 5-325MG [[place] 5-325] 1 tab PO BID PRN #4 tab 08/10/23 [Rx] Insulin Detemir [Levemir Flexpen] 8 units SQ HS #35 each 08/10/23 [Rx] Ipratropium-Albuterol Nebulize [Duoneb 0.5 mg-3 mg/3 ml Soln] 3 ml INHALATION RT-Q4H each 08/10/23 [Rx] Pregabalin [Lyrica] 150 mg PO BID #4 cap 08/10/23 [Rx] predniSONE 0 mg PO DIRECTED 14 Days #47 tab 08/10/23 [Rx] Follow up Appointment(s)/Referral(s): Shun Simmons DO [Primary Care Provider] - 1-2 days Subha Esquivel MD [STAFF PHYSICIAN] - 1 Week Ambulatory/Diagnostic Orders: Basic Metabolic Panel [LAB.AMB] Location: None Selected Complete Blood Count w/diff [LAB.AMB] Time Frame: 3 Days, Location: None Selecte d Activity/Diet/Wound Care/Special Instructions: Oral Prednisone taper 40 mg daily x 5 days, 40 mg daily x 3 days, 30 mg daily x 3 days, 20 mg daily x 3 days Patient to use BiPAP HS as needed with settings of 12/7 40% FiO2 patient to see Dr. Esquivel in the office in 1 to 2 weeks for sleep study and further recommendations. Recommend to repeat labs in 2 to 3 days. Discharge Disposition: TRANSFER TO SNF/ECF
--- NOTE | 2023-08-10 16:23 | P.PN ---
Subjective Progress Note Date: 08/10/23 I am seeing this patient in new consultation today is 08/04/2023 for acute hypoxemic and hypercapnic respiratory failure on BiPAP. Shijen is currently in the emergency room, awaiting a bed on the Cardiac floor. Patient is a 62-year-old white female with past medical history significant for oxygen dependent COPD, congestive heart failure, hypertension, dyslipidemia, type 2 diabetes mellitus, glaucoma, chronic low back pain, and chronic and ongoing tobacco dependence. She has had multiple recent hospital admissions this year for similar issues. Patient is currently lethargic, and I'm unable to elicit much information from her. Apparently, the patient was brought into the hospital by EMS after being found down on the bed room floor at her home. She was confused and possibly remained there overnight. She does have bruising on her left hip and right arm. Patient had an extensive workup on arrival to the emergency room. CT of the brain and C-spine without contrast showed no acute intracranial hemorrhage or mass effect, no fracture or dislocation of the C-spine. X-rays of the right hip and and right hand showed no acute fractures. Patient is currently sitting up in bed, she is lethargic, on BiPAP with settings 16/5 and FiO2 of 35%. respiratory rate is currently 12 breaths per minute, and she achieves tidal volumes around 600 ml. She opens her eyes to vigorous verbal stimulation, but q uickly goes back to sleep. Most recent ABG shows pO2 of 56, pCO2 83, and pH of 7.44. Chest x-ray on arrival showed bibasilar atelectasis versus infiltrate. There was cardiomegaly with mild pulmonary vascular congestion. CBC shows some mild leukocytosis with a WBC count of 12, hemoglobin 11.1, hematocrit 38.1, platelets 483. BMP shows sodium of 141, potassium 3.5, chloride 85, serum bicarb 42, BUN 38, creatinine 0.69, glucose 172. Procalcitonin level was elevated at 0.26. Troponin was mildly elevated and trending up at 0.037, 0.125, and 0.141 respectively. NT proBNP was elevated at 7400. Urinalysis not concerning for UTI. Urine toxicology screen positive for opiates. Patient's prognosis is guarded related to above-mentioned comorbidities. Progress note dated 08/05/2023. The patient is seen today in room 367. Currently, the patient's on BiPAP, with settings of 17/5, and 50%. The patient continues on Rocephin, and azithromycin. She has a history of oxygen-dependent COPD, CHF, hypertension, hyperlipidemia, diabetes, glaucoma, chronic low back pain, and chronic and ongoing tobacco dependence. The patient was seen yesterday in consultation. Currently labs include a white count 8.5, hemoglobin 10.4, hematocrit 36.8, and a normal platelet count. Sodium 140, potassium 3.6, chlorides 86, CO2 39, BUN 36, creatinine 0.61. Chest x-ray revealed bibasilar infiltrates or atelectasis. N- terminal proBNP was elevated at greater than 7000. Pro-calcitonin level was elevated at 0.26. Progress note dated 08/06/2023. The patient is seen today in room 367. Currently, the patient's on 4 L of oxygen. She is receiving saline at 10 mL an hour. She didn't use BiPAP last night, with settings of 17/5, and 40%. She is much more awake and alert. She has a history of COPD, which is oxygen dependent, congestive heart failure, hypertension, hyperlipidemia, diabetes mellitus, chronic low back pain, and ongoing tobacco use, and nicotine dependence. White count 10.7, hemoglobin 10.4, hematocrit 37.8, platelet count 285,000. Sodium 137, potassium 2.9, chlorides 82, CO2 47, BUN 29, and creatinine 0.68. The patient is seen today 08/07/2023 in follow-up on the selective care unit. She is currently resting comfortably in bed. She was quite agitated and restless and combative earlier this morning. She would not keep the BiPAP mask on. She required Haldol, Ativan, morphine and eventually settled down and is currently on the BiPAP 17/5 and 40% FiO2. Unable to obtain arterial blood gases. Her bicarb on the electrolyte profile is 47. White count 8.1. Hemoglobin 9.8. Platelets 201. Sodium 138. Potassium 3.0. BUN 26. Creatinine 0.52. Glucose 284. She is continued on DuoNeb inhalations, Pulmicort and Perforomist inhalations, IV Solu-Medrol. NicoDerm patches in place. Remains on IV diuretics. Currently in a -1.2 L balance. Heparin for DVT prophylaxis. On today's evaluation of , the patient is using the BiPAP on and off during the day and she is alternating it with an oxygen at 4 L per minute nasal cannula. Earlier this morning, the patient has breakfast and she had to come off the BiPAP and she is back on a BiPAP for now. She is diuresing well and the patient remains on IV Lasix 40 mg every 24 hours. The patient has produced ex cellent urine output and the patient has been in a negative fluid balance of 1.9 L for today. Awake and alert and communicating. Serum bicarbs of 43, BUN is at 27 with a creatinine of 0.6, sodiums of 137. On her blood work, the patient is showed some metabolic alkalosis. The patient would benefit from Diamox. She remains on bronchodilators. She remains on systemic steroids and the patient is currently on IV Solu-Medrol 60 mg every 6 hours. She is also on Levemir insulin 20 units at bedtime and 10 units of NovoLog with meals. A follow-up chest x-ray will be obtained within next 24 hours. On today's evaluation of 08/09/2023, the patient is doing well. She was able to come off the BiPAP to nasal cannula and she continues to use the BiPAP on and off during the day. The patient while on the BiPAP is at a pressure of 17/5. Once off the BiPAP, the patient is utilizing oxygen at 3 L/m nasal cannula. She continues to produce excellent amount of urine output while being on IV Lasix. She was also given 2 doses of Diamox and the patient's serum bicarb is down to 35, sodium is at 138, potassium is at 3.8. The patient is currently on 3 L of oxygen by nasal cannula with a pulse ox of 97% and she is communicating effectively and she has no specific complaints. Mental status is also improved. The menstrual with balance over the past 24 hours is -1.9 L and the patient is headed for another at least 2 L negative fluid balance over the next 24 hours. She is on IV Rocephin as a and panic antibiotic coverage. She remains on IV Solu-Medrol. She remains on Lasix 40 mg IV every 24 hours. Potassium is being replaced. The chest x-ray showing improvement in the volume status in the interstitial edema bilaterally and there is improvement aeration bilaterally. On today's evaluation of 08/10/2023, the patient is on 3 L of oxygen by nasal cannula. She is off the BiPAP. She is doing well. She remains on Lasix 40 mg IV every 24 hours. She remains in negative fluid balance. She has no specific complaints. Continues to have some edema lower oximetry is bilaterally. BUN is 29 with a creatinine of 0.5 and a WBC thousand 12. I was able to wean her down to 2 L and the pulse ox remained at 97%. The fluid balance is negative and the patient has been negative fluid balance of 1.9 L over the past 24 hours. The chest x-ray from yesterday continued to show mild pulmonary vascular congestion although the x-ray findings have improved. She has no specific complaints. No altered mentation. She is on bronchodilators. She is on Pulmicort Respules. She is on IV Solu-Medrol 60 mg every 6 hours which will be discontinued and the patient will be started on a prednisone burst taper. She will need obviously rehabilitation. The remains of being made. Objective - Vital Signs Vital signs: Vital Signs Temp 97.4 F L 08/10/23 08:00 Pulse 84 08/10/23 09:42 Resp 16 08/10/23 08:30 BP 147/85 08/10/23 08:00 Pulse Ox 97 08/10/23 08:00 FiO2 40 08/10/23 02:49 Intake & Output 08/09/23 08/10/23 08/10/23 18:59 06:59 18:59 Intake Total 620 180 Output Total 600 1625 Balance 20 -1625 180 Weight 83.5 kg 79.5 kg Intake: Oral 620 180 Output: Urine 600 1625 Other: Voiding Method Indwelling Catheter Indwelling Catheter Indwelling Catheter # Bowel Movements 1 - Exam GENERAL EXAM: Currently calm, cooperative 63-year-old female, on 2 L of oxygen nasal cannula, calm and comfortable. HEAD: Normocephalic. EYES: Normal reaction of pupils, equal size. NOSE: Clear with pink turbinates. THROAT: No erythema or exudates. NECK: No masses, no JVD. CHEST: No chest wall deformity. LUNGS: Equal air entry with bilateral end expiratory wheeze, diminished. CVS: S1 and S2 normal with no audible murmur, regular rhythm. ABDOMEN: No hepatosplenomegaly, normal bowel sounds, no guarding or rigidity. SPINE: No scoliosis or deformity SKIN: No rashes CENTRAL NERVOUS SYSTEM: No focal deficits, tone is normal in all 4 extremities. EXTREMITIES: There is no peripheral edema. No clubbing, no cyanosis. Peripheral pulses are intact. - Labs CBC & Chem 7: 08/10/23 07:20 08/10/23 07:20 Labs: Abnormal Lab Results - Last 24 Hours (Table) 08/09/23 08/09/23 08/09/23 Range/Units 11:19 16:28 20:20 WBC (3.8-10.6) k/uL Hgb (11.4-16.0) gm/dL MCH (25.0-35.0) pg MCHC (31.0-37.0) g/dL RDW (11.5-15.5) % Neutrophils # (1.3-7.7) k/uL Lymphocytes # (1.0-4.8) k/uL Sodium (137-145) mmol/L BUN (7-17) mg/dL Glucose (74-99) mg/dL POC Glucose (mg/dL) 463 H 287 H 377 H (70-110) mg/dL 08/10/23 08/10/23 08/10/23 Range/Units 06:23 07:20 07:20 WBC 12.0 H (3.8-10.6) k/uL Hgb 10.6 L (11.4-16.0) gm/dL MCH 23.6 L (25.0-35.0) pg MCHC 29.6 L (31.0-37.0) g/dL RDW 22.0 H (11.5-15.5) % Neutrophils # 11.4 H (1.3-7.7) k/uL Lymphocytes # 0.2 L (1.0-4.8) k/uL Sodium 136 L (137-145) mmol/L BUN 29 H (7-17) mg/dL Glucose 293 H (74-99) mg/dL POC Glucose (mg/dL) 310 H (70-110) mg/dL Assessment and Plan Plan: Acute hypoxemic and hypercapnic respiratory failure currently on BiPAP, Chest x- ray on arrival showed bibasilar atelectasis versus infiltrates. There was cardiomegaly with mild pulmonary vascular congestion. NT proBNP was elevated at 7400. The patient's clinically improving, the patient is currently off the BiPAP and she is using the BiPAP on and off during the day. Chest x-ray continues to improve. The patient is a negative fluid balance and she is receiving IV Lasix, the patient continues to be a negative fluid balance and oxygen is improved and the patient is currently on 2 L of oxygen by nasal cannula with a pulse ox of 97%. Chest x-ray from yesterday showed improvement in the volume status. Altered mental status secondary to hypercapnic respiratory failure, improved Acute exacerbation of chronic obstructive pulmonary disease, improving Acute exacerbation of diastolic congestive heart failure, currently being diuresed with IV Lasix with excellent urine output Frequent falls Altered mental status, probably related to metabolic encephalopathy and hypercapnic respiratory failure Chronic hypoxemic respiratory failure Chronic ongoing nicotine dependence Diabetes mellitus type 2 Benign essential hypertension Hyperlipidemia Osteoarthritis Poor overall functional performance based on the above-mentioned multiple comorbidities Plan: Discontinue the IV Solu-Medrol and start the patient a prednisone burst taper Oxygenation is improved and the patient is currently on 2 L of oxygen nasal cannula Patient is doing well. Clinically improving. Continue IV Lasix for another 24 hours, for another 24 hours Diamox was given yesterday and the patient's serum bicarb is currently at 29 Continue BiPAP on and off during the day at the same settings Repeat chest x-ray in the morning Continue antibiotic coverage Continue the current medications We will continue to follow Will likely need an ECF and rehabilitation
[2023-08-10 16:39] LABS: Glucose,Whole Blood 518 mg/dL (70-110)
[2023-08-10 16:39] LABS: Glucose,Whole Blood >600 mg/dL (70-110)
[2023-08-10 16:39] LABS: Glucose,Whole Blood 356 mg/dL (70-110)
[2023-08-10 20:04] LABS: Glucose,Whole Blood 339 mg/dL (70-110)
[2023-08-10] MEDS: levETIRAcetam 500 MG TAB PO SCH (20:56)
[2023-08-10] MEDS: INSULIN DETEMIR (LEVEMIR) 100 UNIT/ML SYR SQ SCH (20:58)
[2023-08-11] MEDS: IPRATROPIUM-ALBUTEROL 3 ML NEB INHALATION SCH ×4 (00:12→11:47)
[2023-08-11 06:11] LABS: Glucose,Whole Blood 60 mg/dL (70-110)
[2023-08-11] MEDS: INSULIN ASPART (NovoLOG) 100 UNIT/ML VIAL SQ SCH ×4 (06:27→12:38)
[2023-08-11 06:42] LABS: Glucose,Whole Blood 136 mg/dL (70-110)
--- NOTE | 2023-08-11 08:01 | XR ---
EXAMINATION TYPE: XR chest 1V DATE OF EXAM: 08/11/2023 COMPARISON: 08/09/2023 HISTORY: 63-year-old female follow-up CHF TECHNIQUE: Single frontal view of the chest is obtained. FINDINGS: Left-sided hearing levi extending across the distal convex scoliosis of the thoracolumbar spine. Heart remains enlarged. Tortuous ectatic thoracic aorta. Interstitial prominence persists. Blunting costop hrenic angles redemonstrated. IMPRESSION: Stable exam. Mild cardiomegaly and possible mild pulmonary vascular congestion. Trace ef fusions with adjacent atelectasis and/or consolidation.
[2023-08-11 08:11] LABS: African American GFR (CKD) >90 (>60 ml/min/1.73 sqM); Anion Gap 6 mmol/L; Blood Urea Nitrogen 32 mg/dL (7-17); Calcium 8.8 mg/dL (8.4-10.2); Carbon Dioxide 30 mmol/L (22-30); Chloride 101 mmol/L (98-107); Glucose 137 mg/dL (74-99); Non-African American GFR(CKD) >90 (>60 ml/min/1.73 sqM); Potassium 4.5 mmol/L (3.5-5.1); Sodium 137 mmol/L (137-145)
[2023-08-11] MEDS: BUDESONIDE 1 MG/2 ML NEBU INHALATION SCH (08:22)
[2023-08-11] MEDS: FORMOTEROL FUMARATE 20 MCG/2 ML NEBU INHALATION SCH (08:41)
[2023-08-11] MEDS ORDERED: predniSONE 20 MG TAB PO SCH (09:00)
[2023-08-11] MEDS: ASPIRIN 325 MG TAB PO SCH (09:01)
[2023-08-11] MEDS: HEPARIN SODIUM,PORCINE 5,000 UNIT/ML 1 ML VIAL SQ SCH (09:02)
[2023-08-11] MEDS: FUROSEMIDE 10 MG/ML 4 ML VIAL IV SCH (09:02)
[2023-08-11] MEDS: levETIRAcetam 500 MG TAB PO SCH (09:02)
[2023-08-11] MEDS: FAMOTIDINE 20 MG/2 ML VIAL IV SCH (09:02)
[2023-08-11] MEDS: allopurinoL 100 MG TAB PO SCH (09:02)
[2023-08-11] MEDS: NICOTINE 21MG/24HR PATCH TRANSDERM SCH (09:02)
[2023-08-11 10:30] VITALS: BP 140/92; RESP 18; TEMP 98.8
[2023-08-11 11:34] LABS: Glucose,Whole Blood 181 mg/dL (70-110)
[2023-08-11 12:09] VITALS: PULSE 92
--- NOTE | 2023-08-11 12:36 | P.PN ---
Subjective Progress Note Date: 08/11/23 I am seeing this patient in new consultation today is 08/04/2023 for acute hypoxemic and hypercapnic respiratory failure on BiPAP. Shijen is currently in the emergency room, awaiting a bed on the Cardiac floor. Patient is a 62-year-old white female with past medical history significant for oxygen dependent COPD, congestive heart failure, hypertension, dyslipidemia, type 2 diabetes mellitus, glaucoma, chronic low back pain, and chronic and ongoing tobacco dependence. She has had multiple recent hospital admissions this year for similar issues. Patient is currently lethargic, and I'm unable to elicit much information from her. Apparently, the patient was brought into the hospital by EMS after being found down on the bed room floor at her home. She was confused and possibly remained there overnight. She does have bruising on her left hip and right arm. Patient had an extensive workup on arrival to the emergency room. CT of the brain and C-spine without contrast showed no acute intracranial hemorrhage or mass effect, no fracture or dislocation of the C-spine. X-rays of the right hip and and right hand showed no acute fractures. Patient is currently sitting up in bed, she is lethargic, on BiPAP with settings 16/5 and FiO2 of 35%. respiratory rate is currently 12 breaths per minute, and she achieves tidal volumes around 600 ml. She opens her eyes to vigorous verbal stimulation, but q uickly goes back to sleep. Most recent ABG shows pO2 of 56, pCO2 83, and pH of 7.44. Chest x-ray on arrival showed bibasilar atelectasis versus infiltrate. There was cardiomegaly with mild pulmonary vascular congestion. CBC shows some mild leukocytosis with a WBC count of 12, hemoglobin 11.1, hematocrit 38.1, platelets 483. BMP shows sodium of 141, potassium 3.5, chloride 85, serum bicarb 42, BUN 38, creatinine 0.69, glucose 172. Procalcitonin level was elevated at 0.26. Troponin was mildly elevated and trending up at 0.037, 0.125, and 0.141 respectively. NT proBNP was elevated at 7400. Urinalysis not concerning for UTI. Urine toxicology screen positive for opiates. Patient's prognosis is guarded related to above-mentioned comorbidities. Progress note dated 08/05/2023. The patient is seen today in room 367. Currently, the patient's on BiPAP, with settings of 17/5, and 50%. The patient continues on Rocephin, and azithromycin. She has a history of oxygen-dependent COPD, CHF, hypertension, hyperlipidemia, diabetes, glaucoma, chronic low back pain, and chronic and ongoing tobacco dependence. The patient was seen yesterday in consultation. Currently labs include a white count 8.5, hemoglobin 10.4, hematocrit 36.8, and a normal platelet count. Sodium 140, potassium 3.6, chlorides 86, CO2 39, BUN 36, creatinine 0.61. Chest x-ray revealed bibasilar infiltrates or atelectasis. N- terminal proBNP was elevated at greater than 7000. Pro-calcitonin level was elevated at 0.26. Progress note dated 08/06/2023. The patient is seen today in room 367. Currently, the patient's on 4 L of oxygen. She is receiving saline at 10 mL an hour. She didn't use BiPAP last night, with settings of 17/5, and 40%. She is much more awake and alert. She has a history of COPD, which is oxygen dependent, congestive heart failure, hypertension, hyperlipidemia, diabetes mellitus, chronic low back pain, and ongoing tobacco use, and nicotine dependence. White count 10.7, hemoglobin 10.4, hematocrit 37.8, platelet count 285,000. Sodium 137, potassium 2.9, chlorides 82, CO2 47, BUN 29, and creatinine 0.68. The patient is seen today 08/07/2023 in follow-up on the selective care unit. She is currently resting comfortably in bed. She was quite agitated and restless and combative earlier this morning. She would not keep the BiPAP mask on. She required Haldol, Ativan, morphine and eventually settled down and is currently on the BiPAP 17/5 and 40% FiO2. Unable to obtain arterial blood gases. Her bicarb on the electrolyte profile is 47. White count 8.1. Hemoglobin 9.8. Platelets 201. Sodium 138. Potassium 3.0. BUN 26. Creatinine 0.52. Glucose 284. She is continued on DuoNeb inhalations, Pulmicort and Perforomist inhalations, IV Solu-Medrol. NicoDerm patches in place. Remains on IV diuretics. Currently in a -1.2 L balance. Heparin for DVT prophylaxis. On today's evaluation of , the patient is using the BiPAP on and off during the day and she is alternating it with an oxygen at 4 L per minute nasal cannula. Earlier this morning, the patient has breakfast and she had to come off the BiPAP and she is back on a BiPAP for now. She is diuresing well and the patient remains on IV Lasix 40 mg every 24 hours. The patient has produced ex cellent urine output and the patient has been in a negative fluid balance of 1.9 L for today. Awake and alert and communicating. Serum bicarbs of 43, BUN is at 27 with a creatinine of 0.6, sodiums of 137. On her blood work, the patient is showed some metabolic alkalosis. The patient would benefit from Diamox. She remains on bronchodilators. She remains on systemic steroids and the patient is currently on IV Solu-Medrol 60 mg every 6 hours. She is also on Levemir insulin 20 units at bedtime and 10 units of NovoLog with meals. A follow-up chest x-ray will be obtained within next 24 hours. On today's evaluation of 08/09/2023, the patient is doing well. She was able to come off the BiPAP to nasal cannula and she continues to use the BiPAP on and off during the day. The patient while on the BiPAP is at a pressure of 17/5. Once off the BiPAP, the patient is utilizing oxygen at 3 L/m nasal cannula. She continues to produce excellent amount of urine output while being on IV Lasix. She was also given 2 doses of Diamox and the patient's serum bicarb is down to 35, sodium is at 138, potassium is at 3.8. The patient is currently on 3 L of oxygen by nasal cannula with a pulse ox of 97% and she is communicating effectively and she has no specific complaints. Mental status is also improved. The menstrual with balance over the past 24 hours is -1.9 L and the patient is headed for another at least 2 L negative fluid balance over the next 24 hours. She is on IV Rocephin as a and panic antibiotic coverage. She remains on IV Solu-Medrol. She remains on Lasix 40 mg IV every 24 hours. Potassium is being replaced. The chest x-ray showing improvement in the volume status in the interstitial edema bilaterally and there is improvement aeration bilaterally. On today's evaluation of 08/10/2023, the patient is on 3 L of oxygen by nasal cannula. She is off the BiPAP. She is doing well. She remains on Lasix 40 mg IV every 24 hours. She remains in negative fluid balance. She has no specific complaints. Continues to have some edema lower oximetry is bilaterally. BUN is 29 with a creatinine of 0.5 and a WBC thousand 12. I was able to wean her down to 2 L and the pulse ox remained at 97%. The fluid balance is negative and the patient has been negative fluid balance of 1.9 L over the past 24 hours. The chest x-ray from yesterday continued to show mild pulmonary vascular congestion although the x-ray findings have improved. She has no specific complaints. No altered mentation. She is on bronchodilators. She is on Pulmicort Respules. She is on IV Solu-Medrol 60 mg every 6 hours which will be discontinued and the patient will be started on a prednisone burst taper. She will need obviously rehabilitation. The remains of being made. On today's evaluation of 08/11/2023, the patient is calm and comfortable. Repeat chest x-ray was done that showed improvement in the volume status. The patient continues to diabetes well and she remains on Lasix 40 mg IV every 24 hours patient continues to have residual edema lower extremities bilaterally. Arrangements are being made to treat this patient to [facility] for further rehabilitation. Meanwhile, the patient is on Levemir insulin 45 units along with that she is taking NovoLog 12 units with meals. She has on a prednisone burst taper and currently she is off the IV Solu-Medrol. She is still on br onchodilators. The oxygenation is stable and the patient is currently on 2 L of oxygen by nasal cannula. She was given the BiPAP overnight and she uses for few hours and she ended up quitting the treatment as the patient felt uncomfortable while in the BiPAP. She is afebrile. No other significant events over the past 24 hours. Labs from today shows a BUN of 32 with a creatinine of 0.4 and a s odium level is at 137. Objective - Vital Signs Vital signs: Vital Signs Temp 98.8 F 08/11/23 08:00 Pulse 92 08/11/23 12:01 Resp 18 08/11/23 08:00 BP 140/92 08/11/23 08:00 Pulse Ox 99 08/11/23 08:00 FiO2 40 08/11/23 00:19 Intake & Output 08/10/23 08/11/23 08/11/23 18:59 06:59 18:59 Intake Total 600 240 Output Total 1200 Balance -600 240 Weight 82 kg Intake: Oral 600 240 Output: Urine 1200 Uretheral ([place]) 300 Other: Voiding Method Indwelling Catheter Indwelling Catheter Indwelling Catheter # Voids 1 1 - Exam GENERAL EXAM: Currently calm, cooperative 63-year-old female, on 2 L of oxygen nasal cannula, calm and comfortable. HEAD: Normocephalic. EYES: Normal reaction of pupils, equal size. NOSE: Clear with pink turbinates. THROAT: No erythema or exudates. NECK: No masses, no JVD. CHEST: No chest wall deformity. LUNGS: Equal air entry with bilateral end expiratory wheeze, diminished. CVS: S1 and S2 normal with no audible murmur, regular rhythm. ABDOMEN: No hepatosplenomegaly, normal bowel sounds, no guarding or rigidity. SPINE: No scoliosis or deformity SKIN: No rashes CENTRAL NERVOUS SYSTEM: No focal deficits, tone is normal in all 4 extremities. EXTREMITIES: There is no peripheral edema. No clubbing, no cyanosis. Peripheral pulses are intact. - Labs CBC & Chem 7: 08/10/23 07:20 08/11/23 07:26 Labs: Abnormal Lab Results - Last 24 Hours (Table) 08/10/23 08/10/23 08/10/23 Range/Units 11:25 11:26 16:36 BUN (7-17) mg/dL Creatinine (0.52-1.04) mg/dL Glucose (74-99) mg/dL POC Glucose (mg/dL) >600 H 518 H 356 H (70-110) mg/dL 08/10/23 08/11/23 08/11/23 Range/Units 20:02 06:09 06:40 BUN (7-17) mg/dL Creatinine (0.52-1.04) mg/dL Glucose (74-99) mg/dL POC Glucose (mg/dL) 339 H 60 L 136 H (70-110) mg/dL 08/11/23 08/11/23 Range/Units 07:26 11:32 BUN 32 H (7-17) mg/dL Creatinine 0.48 L (0.52-1.04) mg/dL Glucose 137 H (74-99) mg/dL POC Glucose (mg/dL) 181 H (70-110) mg/dL Assessment and Plan Plan: Acute hypoxemic and hypercapnic respiratory failure currently on BiPAP, Chest x- ray on arrival showed bibasilar atelectasis versus infiltrates. There was cardiomegaly with mild pulmonary vascular congestion. NT proBNP was elevated at 7400. The patient's clinically improving, the patient is currently off the BiPAP and she is using the BiPAP on and off during the day. Chest x-ray continues to improve. The patient is a negative fluid balance and she is receiving IV Lasix, the patient continues to be a negative fluid balance and oxygen is improved and the patient is currently on 2 L of oxygen by nasal cannula with a pulse ox of 97%. Chest x-ray shows improvement in volume status and the patient is currently on 2 L of oxygen by nasal cannula. No significant respiratory distress. Continues to have some edema lower extremities bilaterally. Altered mental status secondary to hypercapnic respiratory failure, improved Acute exacerbation of chronic obstructive pulmonary disease, improving Acute exacerbation of diastolic congestive heart failure, currently being diuresed with IV Lasix with excellent urine output Frequent falls Altered mental status, probably related to metabolic encephalopathy and hypercapnic respiratory failure Chronic hypoxemic respiratory failure Chronic ongoing nicotine dependence Diabetes mellitus type 2 Benign essential hypertension Hyperlipidemia Osteoarthritis Poor overall functional performance based on the above-mentioned multiple comorbidities Plan: The patient will need further rehabilitation the patient is being discharged to [facility] Continue oral diuretics and recommended Lasix 40 mg by mouth twice a day Oxygen at 2 L/m nasal cannula outpatient sleep evaluation Repeat chest x-ray in the morning shows improvement in volume status Prednisone burst taper Continue the current medications We will continue to follow Will likely need an ECF and rehabilitation
[2023-08-11] MEDS ORDERED: FAMOTIDINE 20 MG TAB PO SCH (21:00)
== END 2023-08-11 13:48 | DRG 280 ==
LOC: EC 10:26 → 3SCARD 14:43
PROVIDERS: ADMIT Internal Medicine; ATTEND Internal Medicine
PROC: 5A09357 Assistance with Respiratory Ventilation, Less than 24 Consecutive Hours, Continuous Positive Airway Pressure (ICD-10-PCS; principal; 2023-08-03)
DX: I11.0 Hypertensive heart disease with heart failure (principal); G93.41 Metabolic encephalopathy; I21.A1 Myocardial infarction type 2; J96.22 Acute and chronic respiratory failure with hypercapnia; I50.33 Acute on chronic diastolic (congestive) heart failure; J96.21 Acute and chronic respiratory failure with hypoxia; J44.1 Chronic obstructive pulmonary disease with (acute) exacerbation; D68.9 Coagulation defect, unspecified; E87.20 Acidosis, unspecified; E87.3 Alkalosis; E11.39 Type 2 diabetes mellitus with other diabetic ophthalmic complication; E11.65 Type 2 diabetes mellitus with hyperglycemia; Z79.4 Long term (current) use of insulin; T38.0X5A Adverse effect of glucocorticoids and synthetic analogues, initial encounter; Z91.198 Patient's noncompliance with other medical treatment and regimen for other reason; E66.9 Obesity, unspecified; E03.9 Hypothyroidism, unspecified; E78.5 Hyperlipidemia, unspecified; S70.02XA Contusion of left hip, initial encounter; M51.36 Other intervertebral disc degeneration, lumbar region; F17.210 Nicotine dependence, cigarettes, uncomplicated; K21.9 Gastro-esophageal reflux disease without esophagitis; I07.1 Rheumatic tricuspid insufficiency; Z99.81 Dependence on supplemental oxygen; Z68.34 Body mass index [BMI] 34.0-34.9, adult; M19.90 Unspecified osteoarthritis, unspecified site; H42 Glaucoma in diseases classified elsewhere; S70.12XA Contusion of left thigh, initial encounter; S30.0XXA Contusion of lower back and pelvis, initial encounter; G89.29 Other chronic pain; H40.9 Unspecified glaucoma; R29.6 Repeated falls; W19.XXXA Unspecified fall, initial encounter; Z91.81 History of falling; Y92.003 Bedroom of unspecified non-institutional (private) residence as the place of occurrence of the external cause; Z79.899 Other long term (current) drug therapy; Z79.84 Long term (current) use of oral hypoglycemic drugs; Z79.51 Long term (current) use of inhaled steroids; Z88.5 Allergy status to narcotic agent
CPT/HCPCS: 36415; 36600; 51702; 70450; 71045; 71046; 72125; 73502; 80048; 80053; 80143; 80306; 80320; 81001; 82140; 82550; 82607; 82728; 82746; 82803; 82805; 83036; 83540; 83550; 83605; 83735; 83880; 84132; 84145; 84484; 85025; 85610; 85730; 93005; 94640; 94660; 94760; 96365; 96366; 96372; 96375; 96376; 99291

== ENCOUNTER 2023-08-16 23:29 | Inpatient (IN) | payer MEDICARE, OTHER ==
[2023-08-17 00:22] LABS: Anisocytosis Moderate; Basophils % (A) 0 %; Eosinophils # (A) 0.1 k/uL (0-0.7); Eosinophils % (A) 0 %; HCT 34.5 % (34.0-46.0); HGB 10.2 gm/dL (11.4-16.0); Hypochromasia Marked; Lymphocytes # (A) 1.2 k/uL (1.0-4.8); Lymphocytes % (A) 7 %; MCH 24.2 pg (25.0-35.0); MCHC 29.4 g/dL (31.0-37.0); MCV 82.1 fL (80.0-100.0); Mean Platelet Volume 8.6; Microcytosis Slight; Monocytes # (A) 1.5 k/uL (0-1.0); Monocytes % (A) 9 %; Neutrophils # (A) 14.6 k/uL (1.3-7.7); Neutrophils % (A) 82 %; Platelet Count 384 k/uL (150-450); Poikilocytosis Slight; WBC 17.8 k/uL (3.8-10.6)
[2023-08-17 00:31] LABS: ALT 31 U/L (4-34); AST 26 U/L (14-36); African American GFR (CKD) >90 (>60 ml/min/1.73 sqM); Albumin 3.6 g/dL (3.5-5.0); Alkaline Phosphatase 48 U/L (38-126); Blood Urea Nitrogen 43 mg/dL (7-17); Chloride 96 mmol/L (98-107); Glucose 96 mg/dL (74-99); Magnesium 1.6 mg/dL (1.6-2.3); Non-African American GFR(CKD) >90 (>60 ml/min/1.73 sqM); Potassium 4.7 mmol/L (3.5-5.1); Sodium 142 mmol/L (137-145); Total Bilirubin 0.4 mg/dL (0.2-1.3)
[2023-08-17] MEDS: IPRATROPIUM-ALBUTEROL 3 ML NEB INHALATION STA ×2 (00:33→10:54)
--- NOTE | 2023-08-17 00:35 | ED ---
SOB HPI - General Chief Complaint: Recheck/Abnormal Lab/Rx Stated Complaint: sob Time Seen by Provider: 08/16/23 23:46 Source: patient, EMS, RN notes reviewed, old records reviewed Mode of arrival: EMS Limitations: no limitations - History of Present Illness Initial Comments: This is a 63-year-old female with significant poor story coming in from [facility] for hypoxia decreased activity level, severe shortness of breath. Patient admits to shortness of breath here in the was started. Denying any current chest pain and no documented fevers. She does have bad COPD and CHF. Patient presents in significant distress secondary to shortness of breath. Decreased responsiveness during history of present illness. Patient has no current chest pain MD Complaint: shortness of breath, cough, anxiety -: days(s) Radiation: back Severity: moderate Severity scale (1-10): 6 Quality: dull Consistency: constant Improves With: nothing Known History Of: COPD, congestive heart failure Context: recent URI, anxiety, recent illness Associated Symptoms: cough, sputum production Treatments Prior to Arrival: none - Related Data Home Medications Medication Instructions Recorded Confirmed Cyclobenzaprine [Flexeril] 10 mg PO HS 07/11/14 08/17/23 Omeprazole [PriLOSEC] 20 mg PO DAILY 08/05/14 08/17/23 Fenofibrate 160 mg PO HS 05/27/16 08/17/23 allopurinoL [Allopurinol] 100 mg PO DAILY 05/27/16 08/17/23 Glimepiride [Amaryl] 8 mg PO DAILY 06/28/17 08/17/23 rOPINIRole HCL [Requip] 0.25 mg PO HS 06/02/18 08/17/23 Atorvastatin [Lipitor] 80 mg PO HS 01/21/22 08/17/23 Ergocalciferol (Vitamin D2) 1,250 mcg PO MO 01/21/22 08/17/23 [Drisdol (50,000 Iu)] Magnesium Oxide [Magox 400] 400 mg PO BID@0800,1700 01/21/22 08/17/23 metFORMIN HCL [Glucophage] 1,000 mg PO BID 01/21/22 08/17/23 levETIRAcetam [Keppra] 1,500 mg PO BID 04/08/23 08/17/23 Albuterol Inhaler [Ventolin Hfa 2 puff INHALATION RT-Q6H PRN 08/03/23 08/17/23 Inhaler] INSULIN ASPART (NovoLOG) [NovoLOG See Protocol SQ ACHS 08/17/23 08/17/23 (formulary)] Magnesium Hydroxide [Milk of 7,200 mg PO DAILY PRN 08/17/23 08/17/23 Magnesia Concentrate] Metoprolol Tartrate [Lopressor] 25 mg PO BID@0800,1700 08/17/23 08/17/23 Na Phos,M-B/Na Phos,Di-Ba [Fleet 133 ml RECTAL DAILY PRN 08/17/23 08/17/23 Adult] bisacodyL [Dulcolax] 10 mg RECTAL DAILY PRN 08/17/23 08/17/23 Previous Rx's Medication Instructions Recorded Nicotine 21Mg/24Hr Patch [Habitrol] 1 patch TRANSDERM DAILY #4 patch 04/18/23 Budesonide-Formot 160-4.5 Mcg 2 puff INHALATION RT-BID 30 Days 05/13/23 [Symbicort 160-4.5 Mcg Inhaler] #1 each Spironolactone [Aldactone] 25 mg PO DAILY #30 tab 06/24/23 Ipratropium-Albuterol Nebulize 3 ml INHALATION RT-Q4H each 08/10/23 [Duoneb 0.5 mg-3 mg/3 ml Soln] Dapagliflozin Propanediol [Farxiga] 10 mg PO DAILY tab 08/22/23 Furosemide [Lasix] 40 mg PO BID@0900,1600 #0 tab 08/22/23 HYDROcodone/APAP 5-325MG [Sweetser 1 tab PO BID PRN #4 tab 08/22/23 5-325] Insulin Glargine,Hum.rec.anlog 30 units SQ HS #1 each 08/22/23 [Lantus Solostar Pen] Potassium Chloride ER [K-Dur 20] 20 meq PO DAILY tab 08/22/23 Pregabalin [Lyrica] 150 mg PO BID #4 cap 08/22/23 acetaZOLAMIDE [Diamox] 250 mg PO BID tab 08/22/23 methylPREDNISolone Dose Pack 16 mg PO DAILY tab 08/22/23 [Medrol Dose Pack] Allergies Allergy/AdvReac Type Severity Reaction Status Date / Time codeine AdvReac Severe Abdominal Verified 08/17/23 07:43 Pain Review of Systems ROS Statement: Those systems with pertinent positive or pertinent negative responses have been documented in the HPI. ROS Other: All systems not noted in ROS Statement are negative. Past Medical History Past Medical History: Heart Failure, COPD, Diabetes Mellitus, Eye Disorder, GERD/Reflux, Hyperlipidemia, Hypertension, Osteoarthritis (OA) Additional Past Medical History / Comment(s): glaucoma. "Knees have been giving out." DDD. gout, lower back and left hip pain History of Any Multi-Drug Resistant Organisms: None Reported Past Surgical History: Back Surgery, Section, Cholecystectomy, Tubal Ligation Additional Past Surgical History / Comment(s): MARBIN PLACED FOR SCOLIOSIS as child. mult left breast biopsy, Past Anesthesia/Blood Transfusion Reactions: No Reported Reaction Past Psychological History: No Psychological Hx Reported Smoking Status: Current every day smoker Past Alcohol Use History: None Reported Past Drug Use History: None Reported - Past Family History Brother(s) Family Medical History: Diabetes Mellitus Mother Family Medical History: Cancer Father Family Medical History: Cancer General Exam Limitations: no limitations General appearance: anxious, in distress Head exam: Present: atraumatic, normocephalic, normal inspection Eye exam: Present: normal appearance, PERRL, EOMI. Absent: scleral icterus, conjunctival injection, periorbital swelling ENT exam: Present: normal exam, mucous membranes dry Neck exam: Present: normal inspection. Absent: tenderness, meningismus, lymphadenopathy Respiratory exam: Present: respiratory distress, wheezes, accessory muscle use, decreased breath sounds, prolonged expiratory. Absent: rales, rhonchi, stridor Cardiovascular Exam: Present: normal rhythm, tachycardia, normal heart sounds. Absent: systolic murmur, diastolic murmur, rubs, gallop, clicks GI/Abdominal exam: Present: soft, normal bowel sounds. Absent: distended, tenderness, guarding, rebound, rigid Extremities exam: Present: normal inspection, full ROM, normal capillary refill. Absent: tenderness, pedal edema, joint swelling, calf tenderness Back exam: Present: normal inspection Neurological exam: Present: alert, oriented X3, CN II-XII intact Psychiatric exam: Present: normal affect, normal mood Skin exam: Present: warm, dry, intact, normal color. Absent: rash Course Vital Signs 08/16/23 08/17/23 08/17/23 23:30 00:34 00:39 Temperature 98.7 F Pulse Rate 105 H 103 H 106 H Respiratory 20 Rate Blood Pressure 135/78 O2 Sat by Pulse 94 L Oximetry Fraction of Inspired Oxygen (FIO2) 08/17/23 08/17/23 08/17/23 02:01 03:16 03:20 Temperature Pulse Rate 102 H 107 H 108 H Respiratory 22 Rate Blood Pressure 133/91 O2 Sat by Pulse 93 L Oximetry Fraction of Inspired Oxygen (FIO2) 08/17/23 08/17/23 08/17/23 04:05 07:35 07:36 Temperature Pulse Rate 102 H 102 H 106 H Respiratory 20 24 Rate Blood Pressure O2 Sat by Pulse 94 L 90 L Oximetry Fraction of Inspired Oxygen (FIO2) 08/17/23 08/17/23 08/17/23 07:45 07:46 07:47 Temperature Pulse Rate 100 Respiratory Rate Blood Pressure O2 Sat by Pulse Oximetry Fraction of 40 40 Inspired Oxygen (FIO2) 08/17/23 08/17/23 08/17/23 07:56 08:26 08:30 Temperature Pulse Rate 104 H 108 H Respiratory 24 16 Rate Blood Pressure 125/84 O2 Sat by Pulse 89 L 92 L Oximetry Fraction of 50 Inspired Oxygen (FIO2) 08/17/23 08/17/23 08/17/23 08:55 09:07 09:30 Temperature Pulse Rate 106 H 105 H 111 H Respiratory 18 16 13 Rate Blood Pressure 129/77 136/84 136/84 O2 Sat by Pulse 95 94 L Oximetry Fraction of Inspired Oxygen (FIO2) 08/17/23 08/17/23 08/17/23 10:55 11:05 15:00 Temperature Pulse Rate 114 H 112 H Respiratory Rate Blood Pressure O2 Sat by Pulse Oximetry Fraction of 50 50 Inspired Oxygen (FIO2) 08/17/23 08/17/23 08/17/23 15:02 15:17 17:47 Temperature Pulse Rate 118 H 62 117 H Respiratory 22 Rate Blood Pressure 132/85 O2 Sat by Pulse 94 L Oximetry Fraction of Inspired Oxygen (FIO2) 08/17/23 08/17/23 08/17/23 19:51 19:56 20:15 Temperature Pulse Rate 104 H 105 H 98 Respiratory 18 Rate Blood Pressure 129/68 O2 Sat by Pulse 97 Oximetry Fraction of Inspired Oxygen (FIO2) - Reevaluation(s) Reevaluation #1: 08/17/23 02:04 Medical records reviewed Reevaluation #2: 08/17/23 02:04 Patient symptoms are improving Reevaluation #3: 08/17/23 02:04 Patient informed of results and questions answered Reevaluation #4: 08/17/23 02:04 Was pt. sent in by a medical professional or institution (, ELISA, MACHINE SKIVER, urgent care, hospital, or fpc...) When possible be specific @ -no Did you speak to anyone other than the patient for history (EMS, parent, family, police, friend...)? What history was obtained from this source @ -no Did you review nursing and triage notes (agree or disagree)? Why? @ -agree Are old charts reviewed (outside hosp., previous admission, EMS record, old EKG, old radiological studies, urgent care reports/EKG's, fpc records)? Report findings @ -yes Differential Diagnosis (chest pain, altered mental status, abdominal pain women, abdominal pain men, vaginal bleeding, weakness, fever, dyspnea, syncope, headache, dizziness, GI bleed, back pain, seizure, CVA, palpatations, mental health, musculoskeletal)? @ -prior EKG interpreted by me (3pts min.). @ -yes X-rays interpreted by me (1pt min.). @ -yes CT interpreted by me (1pt min.). @ -no U/S interpreted by me (1pt. min.). @ -no What testing was considered but not performed or refused? (CT, X-rays, U/S, labs)? Why? @ -none What meds were considered but not given or refused? Why? @ -none Did you discuss the management of the patient with other professionals (professionals i.e. ELISA [facility], MACHINE SKIVER, lab, RT, psych nurse, social service director, adding machine operator, teacher, licensed mortgage loan officer, rn field case manager)? Give summary @ -no Was smoking cessation discussed for >3mins.? @ -no Was critical care preformed (if so, how long)? @ -yes31 Were there social determinants of health that impacted care today? How? (Homelessness, low income, unemployed, alcoholism, drug addiction, transportation, low edu. Level, literacy, decrease access to med. care, longterm, rehab)? @ -none Was there de-escalation of care discussed even if they declined (Discuss DNR or withdrawal of care, Hospice)? DNR status @ -no What co-morbidities impacted this encounter? (DM, HTN, Smoking, COPD, CAD, Cancer, CVA, ARF, Chemo, Hep., AIDS, mental health diagnosis, sleep apnea, morbid obesity)? @ -none Was patient admitted / discharged? Hospital course, mention meds given and route, prescriptions, significant lab abnormalities, going to OR and other pertinent info. @ - 63 female for respiratory failure hypercarbic hypoxic respiratory failure will be admitted for further evaluation supportive care and BiPAP as needed Admitted Undiagnosed new problem with uncertain prognosis? @ -no Drug Therapy requiring intensive monitoring for toxicity (Heparin, Nitro, Insulin, Cardizem)? @ -no Were any procedures done? @ -no Diagnosis/symptom? @ -Hypoxic respiratory failure and COPD Acute, or Chronic, or Acute on Chronic? @ -Acute Uncomplicated (without systemic symptoms) or Complicated (systemic symptoms)? @ -Complicated Side effects of treatment? @ -no Exacerbation, Progression, or Severe Exacerbation? @ -exacerbation Poses a threat to life or bodily function? How? (Chest pain, USA, MS, pneumonia, PE, COPD, DKA, ARF, appy, cholecystitis, CVA, Diverticulitis, Homicidal, Suicidal, threat to staff... and all critical care pts) @ -yes stridor distress respiratory failure Reevaluation #5: 08/17/23 02:04 Differential Dyspnea: Coronary syndrome, arrhythmia, tamponade, asthma, COPD, pulmonary embolism, pneumonia, pneumothorax, pulmonary effusion, anaphylaxis, diabetic ketoacidosis, flailed chest, pulmonary contusion, diaphragmatic rupture, anemia, neuromusc ular, this is not meant to be an all-inclusive list. - Consultations Consultation #1: Spoke with [facility] were agrees to admit the patient Medical Decision Making - Medical Decision Making 63 female for respiratory failure hypercarbic hypoxic respiratory failure will be admitted for further evaluation supportive care and BiPAP as needed - Lab Data Result diagrams: 08/22/23 09:51 08/22/23 17:15 Lab Results 08/17/23 08/17/23 08/17/23 Range/Units 00:00 00:00 00:00 WBC 17.8 H (3.8-10.6) k/uL RBC 4.20 (3.80-5.40) m/uL Hgb 10.2 L (11.4-16.0) gm/dL Hct 34.5 (34.0-46.0) % MCV 82.1 (80.0-100.0) fL MCH 24.2 L (25.0-35.0) pg MCHC 29.4 L (31.0-37.0) g/dL RDW 23.0 H (11.5-15.5) % Plt Count 384 (150-450) k/uL MPV 8.6 Neutrophils % 82 % Lymphocytes % 7 % Monocytes % 9 % Eosinophils % 0 % Basophils % 0 % Neutrophils # 14.6 H (1.3-7.7) k/uL Lymphocytes # 1.2 (1.0-4.8) k/uL Monocytes # 1.5 H (0-1.0) k/uL Eosinophils # 0.1 (0-0.7) k/uL Basophils # 0.0 (0-0.2) k/uL Hypochromasia Marked Poikilocytosis Slight Anisocytosis Moderate Microcytosis Slight PT 11.3 (9.0-12.0) sec INR 1.1 (<1.2) APTT 21.3 L (22.0-30.0) sec VBG pH (7.31-7.41) VBG pCO2 (37-51) mmHg VBG HCO3 (24-28) mmol/L Sodium 142 (137-145) mmol/L Potassium 4.7 (3.5-5.1) mmol/L Chloride 96 L (98-107) mmol/L Carbon Dioxide 37 H (22-30) mmol/L Anion Gap 9 mmol/L BUN 43 H (7-17) mg/dL Creatinine 0.49 L (0.52-1.04) mg/dL Est GFR (CKD-EPI)AfAm >90 (>60 ml/min/1.73 sqM) Est GFR (CKD-EPI)NonAf >90 (>60 ml/min/1.73 sqM) Glucose 96 (74-99) mg/dL Estimated Ave Glu mg/dL mg/dL Hemoglobin A1c (<=6.0) % Plasma Lactic Acid Jon (0.7-2.0) mmol/L Calcium 9.0 (8.4-10.2) mg/dL Magnesium 1.6 (1.6-2.3) mg/dL Total Bilirubin 0.4 (0.2-1.3) mg/dL AST 26 (14-36) U/L ALT 31 (4-34) U/L Alkaline Phosphatase 48 (38-126) U/L Troponin I (0.000-0.034) ng/mL NT-Pro-B Natriuret Pep 4070 pg/mL Total Protein 6.0 L (6.3-8.2) g/dL Albumin 3.6 (3.5-5.0) g/dL Procalcitonin (0.02-0.09) ng/mL 08/17/23 08/17/23 08/17/23 Range/Units 00:00 00:00 00:00 WBC (3.8-10.6) k/uL RBC (3.80-5.40) m/uL Hgb (11.4-16.0) gm/dL Hct (34.0-46.0) % MCV (80.0-100.0) fL MCH (25.0-35.0) pg MCHC (31.0-37.0) g/dL RDW (11.5-15.5) % Plt Count (150-450) k/uL MPV Neutrophils % % Lymphocytes % % Monocytes % % Eosinophils % % Basophils % % Neutrophils # (1.3-7.7) k/uL Lymphocytes # (1.0-4.8) k/uL Monocytes # (0-1.0) k/uL Eosinophils # (0-0.7) k/uL Basophils # (0-0.2) k/uL Hypochromasia Poikilocytosis Anisocytosis Microcytosis PT (9.0-12.0) sec INR (<1.2) APTT (22.0-30.0) sec VBG pH (7.31-7.41) VBG pCO2 (37-51) mmHg VBG HCO3 (24-28) mmol/L Sodium (137-145) mmol/L Potassium (3.5-5.1) mmol/L Chloride (98-107) mmol/L Carbon Dioxide (22-30) mmol/L Anion Gap mmol/L BUN (7-17) mg/dL Creatinine (0.52-1.04) mg/dL Est GFR (CKD-EPI)AfAm (>60 ml/min/1.73 sqM) Est GFR (CKD-EPI)NonAf (>60 ml/min/1.73 sqM) Glucose (74-99) mg/dL Estimated Ave Glu mg/dL mg/dL Hemoglobin A1c (<=6.0) % Plasma Lactic Acid Jon 1.1 (0.7-2.0) mmol/L Calcium (8.4-10.2) mg/dL Magnesium (1.6-2.3) mg/dL Total Bilirubin (0.2-1.3) mg/dL AST (14-36) U/L ALT (4-34) U/L Alkaline Phosphatase (38-126) U/L Troponin I 0.018 (0.000-0.034) ng/mL NT-Pro-B Natriuret Pep pg/mL Total Protein (6.3-8.2) g/dL Albumin (3.5-5.0) g/dL Procalcitonin 0.15 H (0.02-0.09) ng/mL 08/17/23 08/17/23 Range/Units 00:00 00:10 WBC (3.8-10.6) k/uL RBC (3.80-5.40) m/uL Hgb (11.4-16.0) gm/dL Hct (34.0-46.0) % MCV (80.0-100.0) fL MCH (25.0-35.0) pg MCHC (31.0-37.0) g/dL RDW (11.5-15.5) % Plt Count (150-450) k/uL MPV Neutrophils % % Lymphocytes % % Monocytes % % Eosinophils % % Basophils % % Neutrophils # (1.3-7.7) k/uL Lymphocytes # (1.0-4.8) k/uL Monocytes # (0-1.0) k/uL Eosinophils # (0-0.7) k/uL Basophils # (0-0.2) k/uL Hypochromasia Poikilocytosis Anisocytosis Microcytosis PT (9.0-12.0) sec INR (<1.2) APTT (22.0-30.0) sec VBG pH 7.28 L (7.31-7.41) VBG pCO2 89 H* (37-51) mmHg VBG HCO3 42 H (24-28) mmol/L Sodium (137-145) mmol/L Potassium (3.5-5.1) mmol/L Chloride (98-107) mmol/L Carbon Dioxide (22-30) mmol/L Anion Gap mmol/L BUN (7-17) mg/dL Creatinine (0.52-1.04) mg/dL Est GFR (CKD-EPI)AfAm (>60 ml/min/1.73 sqM) Est GFR (CKD-EPI)NonAf (>60 ml/min/1.73 sqM) Glucose (74-99) mg/dL Estimated Ave Glu mg/dL 177 mg/dL Hemoglobin A1c 7.8 H (<=6.0) % Plasma Lactic Acid Jon (0.7-2.0) mmol/L Calcium (8.4-10.2) mg/dL Magnesium (1.6-2.3) mg/dL Total Bilirubin (0.2-1.3) mg/dL AST (14-36) U/L ALT (4-34) U/L Alkaline Phosphatase (38-126) U/L Troponin I (0.000-0.034) ng/mL NT-Pro-B Natriuret Pep pg/mL Total Protein (6.3-8.2) g/dL Albumin (3.5-5.0) g/dL Procalcitonin (0.02-0.09) ng/mL - EKG Data -: EKG Interpreted by Me (EKG is sinus tachycardia 106 [place] 146 QRS 80 QTC 375) - Radiology Data Radiology results: report reviewed (Chest x-ray shows CHF pleural effusion of pneumonia possibly underlying ), image reviewed Critical Care Time Critical Care Time: Yes Total Critical Care Time: 31 Disposition Clinical Impression: Shortness of breath, Hypoxemia, COPD (chronic obstructive pulmonary disease), CHF (congestive heart failure), CO2 narcosis, Acute respiratory failure with hypoxia, Altered mental status, Hypercarbia Disposition: ADMITTED IP TO THIS [facility] Condition: Fair Is patient prescribed a controlled substance at d/c from ED?: No Time of Disposition: 02:00
[2023-08-17 00:38] LABS: Anion Gap 9 mmol/L; Carbon Dioxide 37 mmol/L (22-30)
[2023-08-17 00:39] LABS: NT-Pro-B-Type Natriuretic Pept 4070 pg/mL
[2023-08-17 00:45] LABS: VBG PH 7.28 (7.31-7.41)
[2023-08-17 00:58] LABS: INR 1.1 (<1.2); Prothrombin Time 11.3 sec (9.0-12.0)
[2023-08-17 01:22] LABS: Partial Thromboplastin Time 21.3 sec (22.0-30.0)
[2023-08-17] MEDS ORDERED: IPRATROPIUM-ALBUTEROL 3 ML NEB INHALATION STA (01:58)
[2023-08-17] MEDS ORDERED: methylPREDNISolone SOD SUCCI 125 MG/2 ML VIAL IV STA (01:58)
[2023-08-17] MEDS ORDERED: PNEUMONIA PROTOCOL UTILIZED 1 EACH MISC PO PRN (01:58)
[2023-08-17] MEDS ORDERED: NALOXONE 0.4 MG/ML 1 ML VIAL IVP PRN (01:58)
[2023-08-17] MEDS ORDERED: AZITHROMYCIN 500 MG in SODIUM CHLORIDE 0.9% 250 ML IVPB STA (01:58)
[2023-08-17] MEDS ORDERED: FUROSEMIDE 10 MG/ML 4 ML VIAL IV SCH (02:00)
[2023-08-17] MEDS ORDERED: ALBUTEROL NEBULIZED 2.5 MG/3 ML INHALATION PRN (02:49)
--- NOTE | 2023-08-17 04:24 | P.CNPUL ---
History of Present Illness Consult date: 08/17/23 Requesting physician: Drew Lawrence Reason for consult: dyspnea Chief complaint: Shortness of breath and hypoxia History of present illness: I am seeing this patient in consultation today 08/17/2023 in the emergency room for acute hypoxemic and hypercapnic respiratory failure. Patient is a 62-year-old white female with past medical history significant for oxygen dependent COPD, congestive heart failure, hypertension, dyslipidemia, type 2 diabetes mellitus, glaucoma, chronic low back pain, and chronic and ongoing tobacco dependence. She has had multiple recent hospital admissions this year for similar issues. Patient was actually just recently discharged on August 11 for similar issues. She was BiPAP dependent for several days. Apparently, while at [facility] for rehab, the patient became severely short of breath and hypoxic while up walking around. Patient is currently up sitting in bed, on 5 L/m nasal cannula, in no acute distress. She is alert and talkative. She is technically oriented, but a poor historian. She denies any complaints. Chest x- ray on arrival showed cardiomegaly with pulmonary vascular congestion. There are also some bibasilar infiltrates, possible atelectasis vs developing pneumonia. ABG done on arrival was consistent with hypercapnic respiratory failure. Patient does have history of severe oxygen dependent COPD and congestive heart failure. CBC on arrival showed some leukocytosis with a WBC count of 17.8, hemoglobin 10.2, hematocrit 34.5, platelets 384. BMP on arrival showed a sodium 142, potassium 4.7, chloride 96, serum bicarbonate 37, B1 43, creatinine 0.49, glucose 96. Lactic acid level was 1.1. Troponin 0.018. NT proBNP was elevated at 4070. Patient was started on Lasix 40 mg twice a day. Patient was also empirically started on azithromycin and ceftriaxone. Currently afebrile. Patient appears hemodynamically stable, is being admitted to the cardiac stepdown unit. Review of Systems REVIEW OF SYSTEMS: CONSTITUTIONAL: Denies any recent significant weight loss or weight gain. EYES: Denies change in vision. EARS, NOSE, MOUTH, THROAT: Denies headaches, denies sore throat. CARDIOVASCULAR: Denies chest pain, palpitations or syncopal episodes. Admits lower extremity swelling RESPIRATORY: Denies shortness of breath, cough, congestion or hemoptysis. GASTROINTESTINAL: Denies change in appetite, abdominal pain, nausea and vomiting, or diarrhea GENITOURINARY: Denies hematuria, denies infections. MUSKULOSKELETAL: Denies pain, denies swelling. INTEGUMENTARY: Denies rash, denies eczema. NEUROLOGICAL: Denies recent memory loss, no recent seizure activity. PSYCHIATRIC: Denies anxiety, denies depression. HEMATOLOGIC/LYMPHATIC: Denies anemia, denies enlarged lymph node Past Medical History Past Medical History: Heart Failure, COPD, Diabetes Mellitus, Eye Disorder, GERD/Reflux, Hyperlipidemia, Hypertension, Osteoarthritis (OA) Additional Past Medical History / Comment(s): glaucoma. "Knees have been giving out." DDD. gout, lower back and left hip pain History of Any Multi-Drug Resistant Organisms: None Reported Past Surgical History: Back Surgery, Section, Cholecystectomy, Tubal Ligation Additional Past Surgical History / Comment(s): MARBIN PLACED FOR SCOLIOSIS as child. mult left breast biopsy, Past Anesthesia/Blood Transfusion Reactions: No Reported Reaction Past Psychological History: No Psychological Hx Reported Smoking Status: Current every day smoker Past Alcohol Use History: None Reported Past Drug Use History: None Reported - Past Family History Brother(s) Family Medical History: Diabetes Mellitus Mother Family Medical History: Cancer Father Family Medical History: Cancer Medications and Allergies Home Medications Medication Instructions Recorded Confirmed Type Cyclobenzaprine [Flexeril] 10 mg PO HS 07/11/14 08/03/23 History Omeprazole [PriLOSEC] 20 mg PO DAILY 08/05/14 08/03/23 History Fenofibrate 160 mg PO DAILY 05/27/16 08/03/23 History allopurinoL [Allopurinol] 100 mg PO DAILY 05/27/16 08/03/23 History Glimepiride [Amaryl] 8 mg PO DAILY 06/28/17 08/03/23 History rOPINIRole HCL [Requip] 0.25 mg PO HS 06/02/18 08/03/23 History Atorvastatin [Lipitor] 80 mg PO HS 01/21/22 08/03/23 History Empagliflozin [Jardiance] 25 mg PO DAILY 01/21/22 08/03/23 History Ergocalciferol (Vitamin D2) 1,250 mcg PO MO 01/21/22 08/03/23 History [Drisdol (50,000 Iu)] Magnesium Oxide [Magox 400] 400 mg PO BID 01/21/22 08/03/23 History metFORMIN HCL [Glucophage] 1,000 mg PO BID 01/21/22 08/03/23 History levETIRAcetam [Keppra] 1,500 mg PO BID 04/08/23 08/03/23 History Nicotine 21Mg/24Hr Patch [Habitrol] 1 patch TRANSDERM DAILY #4 patch 04/18/23 08/03/23 Rx Budesonide-Formot 160-4.5 Mcg 2 puff INHALATION RT-BID 30 Days 05/13/23 08/03/23 Rx [Symbicort 160-4.5 Mcg Inhaler] #1 each Furosemide [Lasix] 40 mg PO DAILY #60 tab 06/24/23 08/03/23 Rx Metoprolol Tartrate [Lopressor] 25 mg PO BID #60 tab 06/24/23 08/03/23 Rx Spironolactone [Aldactone] 25 mg PO DAILY #30 tab 06/24/23 08/03/23 Rx Albuterol Inhaler [Ventolin Hfa 2 puff INHALATION RT-Q6H PRN 08/03/23 08/03/23 History Inhaler] HYDROcodone/APAP 5-325MG [[place] 1 tab PO BID PRN #4 tab 08/10/23 Rx 5-325] Ipratropium-Albuterol Nebulize 3 ml INHALATION RT-Q4H each 08/10/23 Rx [Duoneb 0.5 mg-3 mg/3 ml Soln] Pregabalin [Lyrica] 150 mg PO BID #4 cap 08/10/23 Rx predniSONE 0 mg PO DIRECTED 14 Days #47 tab 08/10/23 Rx INSULIN ASPART (NovoLOG) [NovoLOG 0 unit SQ ACHS each 08/11/23 Rx (formulary)] Insulin Detemir [Levemir Flexpen] 25 units SQ HS #1 each 08/11/23 08/03/23 Rx Allergies Allergy/AdvReac Type Severity Reaction Status Date / Time codeine AdvReac Severe Abdominal Verified 08/03/23 12:16 Pain Physical Exam Vitals: Vital Signs Temp Pulse Resp BP Pulse Ox 08/17/23 02:01 102 H 22 133/91 93 L 08/17/23 00:39 106 H 08/17/23 00:34 103 H 08/16/23 23:30 98.7 F 105 H 20 135/78 94 L Intake and Output 08/16/23 08/16/23 08/17/23 14:59 22:59 06:59 Other: Weight 81.193 kg GENERAL EXAM: Alert and talkative, 63-year-old obese female, comfortable in no apparent distress. HEAD: Normocephalic and atraumatic EYES: Normal reaction of pupils, equal size. NOSE: Clear with pink turbinates. THROAT: No erythema or exudates. NECK: No masses, no JVD. CHEST: No chest wall deformity. LUNGS: Equal air entry with rhonchi heard throughout. No wheezes, crackles, or focal dullness. On 5 L/m nasal cannula. No conversational dyspnea or accessory muscle use.. CVS: S1 and S2 normal with no audible murmur, regular rhythm. No extra heart sounds ABDOMEN: Obese abdomen, no hepatosplenomegaly, active bowel sounds, no guarding or rigidity. SPINE: No scoliosis or deformity SKIN: No rashes CENTRAL NERVOUS SYSTEM: No focal deficits, tone is normal in all 4 extremities. EXTREMITIES: There is 2-3+ pitting bilateral lower extremity edema, clubbing, or cyanosis. Peripheral pulses are intact. Results - Laboratory Findings CBC and BMP: 08/17/23 00:00 08/17/23 00:00 PT/INR, D-dimer PT 11.3 sec (9.0-12.0) 08/17/23 00:00 INR 1.1 (<1.2) 08/17/23 00:00 Abnormal lab findings: Abnormal Labs 08/17/23 08/17/23 08/17/23 00:00 00:00 00:00 WBC 17.8 H Hgb 10.2 L MCH 24.2 L MCHC 29.4 L RDW 23.0 H Neutrophils # 14.6 H Monocytes # 1.5 H APTT 21.3 L VBG pH VBG pCO2 VBG HCO3 Chloride 96 L Carbon Dioxide 37 H BUN 43 H Creatinine 0.49 L Total Protein 6.0 L 08/17/23 00:10 WBC Hgb MCH MCHC RDW Neutrophils # Monocytes # APTT VBG pH 7.28 L VBG pCO2 89 H* VBG HCO3 42 H Chloride Carbon Dioxide BUN Creatinine Total Protein - Diagnostic Findings Chest x-ray: image reviewed Assessment and Plan Assessment: Acute hypoxemic and hypercapnic respiratory failure currently 5 L/m nasal cannula. Chest x-ray on arrival showed bibasilar atelectasis versus infiltrates. Underlying pneumonia is not ruled out. There is cardiomegaly with mild p ulmonary vascular congestion. NT proBNP was elevated at 4000 Acute exacerbation of chronic obstructive pulmonary disease Acute exacerbation of diastolic congestive heart failure Leukocytosis Frequent falls Altered mental status, probably related metabolic encephalopathy and hypercapnic respiratory failure Chronic hypoxemic respiratory failure Chronic ongoing nicotine dependence Diabetes mellitus type 2 Benign essential hypertension Hyperlipidemia Osteoarthritis Obesity, with a BMI of 32.7 kg/m Plan: Patient's medications, labs, chest x-ray reviewed Continue supplemental oxygen Continue DuoNeb inhalations and IV Solu-Medrol Add Symbicort Empiric antibiotics were added Check procalcitonin level Agree with diuresis, currently receiving Lasix 40 mg twice a day Patient's overall prognosis is guarded related to above-mentioned comorbidities. She's had multiple hospital readmissions this year, and actually was just discharged on August 11 for similar issues. We will continue to follow I have personally seen and examined the patient, performed the documentation and the assessment and plan as written. Number of minutes spent on the visit:20 Time with Patient: Greater than 30
--- NOTE | 2023-08-17 04:47 | XR ---
EXAM: XR Chest, 1 View CLINICAL HISTORY: sob TECHNIQUE: Frontal view of the chest. COMPARISON: Portable chest dated 08/11/2023 FINDINGS: Lungs: Subsegmental perihilar and patchy to confluent bibasilar opacities noted. Pleural space: Evaluation for pleural effusions is somewhat limited. A right pleural effusion is suspected. No pneumothorax. Heart: Cardiac silhouette is partially obscured by 5 to be slightly more prominent. Mediastinum: The mediastinal contours are stable, accounting for kyphotic oblique technique. No tracheal deviation. Bones/joints: Stable spinal instrumentation with unilateral vertical levi and laminar clips. IMPRESSION: Subsegmental perihilar and patchy to confluent bibasilar opacities noted. Differential consideration includes asymmetric dependent edema versus bibasilar pneumonia.
[2023-08-17] MEDS: methylPREDNISolone SOD SUCCI 125 MG/2 ML VIAL IV SCH ×4 (06:10→23:31)
[2023-08-17] MEDS: ALBUTEROL NEBULIZED 2.5 MG/3 ML INHALATION SCH ×4 (07:33→19:49)
[2023-08-17] MEDS: SYMBICORT 160-4.5 MCG INHALER INHALATION SCH ×2 (07:34→19:49)
[2023-08-17] MEDS ORDERED: FUROSEMIDE 10 MG/ML 10 ML VIAL IV STA (08:29)
[2023-08-17] MEDS: FUROSEMIDE 100 MG in SODIUM CHLORIDE 0.9% 90 ML IV SCH ×2 (09:10→17:33)
[2023-08-17 09:57] LABS: ABG Base Excess 19.7 mmol/L; ABG Oxygen Saturation 95.1 % (94-97); ABG PH 7.38 (7.35-7.45); ABG PO2 77 mmHg (83-108); ABG TCO2 47 mmol/L (19-24); Allen Test Performed? Yes
[2023-08-17 09:58] LABS: ABG HCO3 45 mmol/L (21-25); ABG PCO2 75 mmHg (35-45)
[2023-08-17] MEDS ORDERED: DEXTROSE 50% SYRINGE 50 ML IVP PRN ×2 (10:11)
--- NOTE | 2023-08-17 10:33 | P.HPIM ---
History of Present Illness H&P Date: 08/17/23 History of present illness; Patient is a 62-year-old white female with past medical history significant for oxygen dependent COPD, congestive heart failure, hypertension, dyslipidemia, type 2 diabetes mellitus, glaucoma, chronic low back pain, and chronic and ongoing tobacco dependence who presented to the ER because of worsening shortness of breath. Patient has multiple similar admissions in the past few months for shortness of breath. Patient was currently living in [facility] after being discharged there a week before. Patient apparently got short of breath on ambulation. Denied any chest pain. Denied any fever or chills. There was no complain of swelling of feet. Denies any recent fall. No complain of palpitation. No carotid orthopnea or PND. Because of this worsening shortness of breath, patient came to the ER Initial lab work done in the ER showed WBC 17.8, hemoglobin 10.2, platelet count 384, sodium 142, potassium 4.7, BUN 42, creatinine 0.49 troponin 0.018, total protein 6 EKG done in the ER showed heart rate 106, no ST segment elevation, no T-wave inversion seen Chest x-ray done in the ER subsegmental perihilar and patchy to confluent bibasilar opacities noted. Differential includes asymmetric dependent edema versus bibasilar pneumonia Patient admitted to medicine service REVIEW OF SYSTEMS: CONSTITUTIONAL: No fever, no malaise, no fatigue. HEENT: No recent visual problems or hearing problems. Denied any sore throat. CARDIOVASCULAR: As mentioned in HPI PULMONARY: As mentioned in HPI GASTROINTESTINAL: No diarrhea, no nausea, no vomiting, no abdominal pain. NEUROLOGICAL: No headaches, no weakness, no numbness. HEMATOLOGICAL: Denies any bleeding or petechiae. GENITOURINARY: Denies any burning micturition, frequency, or urgency. MUSCULOSKELETAL/RHEUMATOLOGICAL: Denies any joint pain, swelling, or any muscle pain. ENDOCRINE: Denies any polyuria or polydipsia. The rest of the 14-point review of systems is negative. PHYSICAL EXAMINATION: GENERAL: The patient is alert and oriented x3, not in any acute distress. Well developed, well nourished. HEENT: Pupils are round and equally reacting to light. EOMI. No scleral icterus. No conjunctival pallor. Normocephalic, atraumatic. No pharyngeal erythema. No thyromegaly. CARDIOVASCULAR: S1 and S2 present. No murmurs, rubs, or gallops. PULMONARY: Diminished breath sounds at bases, bilateral crackles audible ABDOMEN: Soft, nontender, nondistended, normoactive bowel sounds. No palpable organomegaly. MUSCULOSKELETAL: No joint swelling or deformity. EXTREMITIES: 1+ pitting edema lower extremities bilaterally NEUROLOGICAL: Gross neurological examination did not reveal any focal deficits. SKIN: No rashes. Assessment and plan Acute on chronic hypoxemic and hypercapnic respiratory failure Bacterial pneumonia Acute exacerbation of chronic obstructive pulmonary disease Acute exacerbation of diastolic congestive heart failure Leukocytosis Frequent falls Diabetes mellitus type 2 Benign essential hypertension Hyperlipidemia Osteoarthritis Obesity, with a BMI of 32.7 kg/m Monitor vital signs Monitor CBC Monitor CMP Continue telemetry monitoring Continue breathing treatments Continue IV Rocephin and azithromycin Continue IV Solu-Medrol Monitor blood sugar levels, continue sliding scale insulin Continue IV Lasix drip Cardiology consulted Pulmonology consulted Labs and medication were reviewed.. Continue same treatment. Continue with symptomatic treatment. Resume home medication. Monitor labs and vitals. DVT and GI prophylaxis. Further recommendations as per clinical course of the patient Dictation was produced using [employer] dictation software. please excuse any grammatical, word or spelling errors. Past Medical History Past Medical History: Heart Failure, COPD, Diabetes Mellitus, Eye Disorder, GERD/Reflux, Hyperlipidemia, Hypertension, Osteoarthritis (OA) Additional Past Medical History / Comment(s): glaucoma. "Knees have been giving out." DDD. gout, lower back and left hip pain History of Any Multi-Drug Resistant Organisms: None Reported Past Surgical History: Back Surgery, Section, Cholecystectomy, Tubal Ligation Additional Past Surgical History / Comment(s): MARBIN PLACED FOR SCOLIOSIS as chil dBrianna mult left breast biopsy, Past Anesthesia/Blood Transfusion Reactions: No Reported Reaction Past Psychological History: No Psychological Hx Reported Smoking Status: Current every day smoker Past Alcohol Use History: None Reported Past Drug Use History: None Reported - Past Family History Brother(s) Family Medical History: Diabetes Mellitus Mother Family Medical History: Cancer Father Family Medical History: Cancer Medications and Allergies Home Medications Medication Instructions Recorded Confirmed Type Cyclobenzaprine [Flexeril] 10 mg PO HS 07/11/14 08/17/23 History Omeprazole [PriLOSEC] 20 mg PO DAILY 08/05/14 08/17/23 History Fenofibrate 160 mg PO HS 05/27/16 08/17/23 History allopurinoL [Allopurinol] 100 mg PO DAILY 05/27/16 08/17/23 History Glimepiride [Amaryl] 8 mg PO DAILY 06/28/17 08/17/23 History rOPINIRole HCL [Requip] 0.25 mg PO HS 06/02/18 08/17/23 History Atorvastatin [Lipitor] 80 mg PO HS 01/21/22 08/17/23 History Empagliflozin [Jardiance] 25 mg PO DAILY 01/21/22 08/17/23 History Ergocalciferol (Vitamin D2) 1,250 mcg PO MO 01/21/22 08/17/23 History [Drisdol (50,000 Iu)] Magnesium Oxide [Magox 400] 400 mg PO BID@0800,1700 01/21/22 08/17/23 History metFORMIN HCL [Glucophage] 1,000 mg PO BID 01/21/22 08/17/23 History levETIRAcetam [Keppra] 1,500 mg PO BID 04/08/23 08/17/23 History Nicotine 21Mg/24Hr Patch [Habitrol] 1 patch TRANSDERM DAILY #4 patch 04/18/23 08/17/23 Rx Budesonide-Formot 160-4.5 Mcg 2 puff INHALATION RT-BID 30 Days 05/13/23 08/17/23 Rx [Symbicort 160-4.5 Mcg Inhaler] #1 each Furosemide [Lasix] 40 mg PO DAILY #60 tab 06/24/23 08/17/23 Rx Spironolactone [Aldactone] 25 mg PO DAILY #30 tab 06/24/23 08/17/23 Rx Albuterol Inhaler [Ventolin Hfa 2 puff INHALATION RT-Q6H PRN 08/03/23 08/17/23 History Inhaler] HYDROcodone/APAP 5-325MG [[place] 1 tab PO BID PRN #4 tab 08/10/23 08/17/23 Rx 5-325] Ipratropium-Albuterol Nebulize 3 ml INHALATION RT-Q4H each 08/10/23 08/17/23 Rx [Duoneb 0.5 mg-3 mg/3 ml Soln] Pregabalin [Lyrica] 150 mg PO BID #4 cap 08/10/23 08/17/23 Rx Insulin Detemir [Levemir Flexpen] 25 units SQ HS #1 each 08/11/23 08/17/23 Rx INSULIN ASPART (NovoLOG) [NovoLOG See Protocol SQ ACHS 08/17/23 08/17/23 History (formulary)] Magnesium Hydroxide [Milk of 7,200 mg PO DAILY PRN 08/17/23 08/17/23 History Magnesia Concentrate] Metoprolol Tartrate [Lopressor] 25 mg PO BID@0800,1700 08/17/23 08/17/23 History Na Phos,M-B/Na Phos,Di-Ba [Fleet 133 ml RECTAL DAILY PRN 08/17/23 08/17/23 History Adult] bisacodyL [Dulcolax] 10 mg RECTAL DAILY PRN 08/17/23 08/17/23 History predniSONE See Taper PO DIRECTED 08/17/23 08/17/23 History Allergies Allergy/AdvReac Type Severity Reaction Status Date / Time codeine AdvReac Severe Abdominal Verified 08/17/23 07:43 Pain Physical Exam Vitals: Vital Signs Temp Pulse Resp BP Pulse Ox FiO2 08/17/23 09:07 105 H 16 136/84 94 L 08/17/23 08:55 106 H 18 129/77 95 08/17/23 08:30 50 08/17/23 08:26 108 H 16 125/84 92 L 08/17/23 07:56 104 H 24 89 L 08/17/23 07:47 40 08/17/23 07:46 100 08/17/23 07:45 40 08/17/23 07:36 106 H 24 90 L 08/17/23 07:35 102 H 08/17/23 04:05 102 H 20 94 L 08/17/23 03:20 108 H 08/17/23 03:16 107 H 08/17/23 02:01 102 H 22 133/91 93 L 08/17/23 00:39 106 H 08/17/23 00:34 103 H 08/16/23 23:30 98.7 F 105 H 20 135/78 94 L Intake and Output 08/16/23 08/17/23 08/17/23 22:59 06:59 14:59 Output Total 1450 Balance -1450 Output: Urine 1450 Uretheral (Cardoza) 250 Other: Weight 81.193 kg Results CBC & Chem 7: 08/17/23 00:00 08/17/23 00:00 Labs: Abnormal Lab Results - Last 24 Hours (Table) 08/17/23 08/17/23 08/17/23 Range/Units 00:00 00:00 00:00 WBC 17.8 H (3.8-10.6) k/uL Hgb 10.2 L (11.4-16.0) gm/dL MCH 24.2 L (25.0-35.0) pg MCHC 29.4 L (31.0-37.0) g/dL RDW 23.0 H (11.5-15.5) % Neutrophils # 14.6 H (1.3-7.7) k/uL Monocytes # 1.5 H (0-1.0) k/uL APTT 21.3 L (22.0-30.0) sec ABG pCO2 (35-45) mmHg ABG pO2 (83-108) mmHg ABG HCO3 (21-25) mmol/L ABG Total CO2 (19-24) mmol/L VBG pH (7.31-7.41) VBG pCO2 (37-51) mmHg VBG HCO3 (24-28) mmol/L Chloride 96 L (98-107) mmol/L Carbon Dioxide 37 H (22-30) mmol/L BUN 43 H (7-17) mg/dL Creatinine 0.49 L (0.52-1.04) mg/dL Total Protein 6.0 L (6.3-8.2) g/dL 08/17/23 08/17/23 Range/Units 00:10 09:48 WBC (3.8-10.6) k/uL Hgb (11.4-16.0) gm/dL MCH (25.0-35.0) pg MCHC (31.0-37.0) g/dL RDW (11.5-15.5) % Neutrophils # (1.3-7.7) k/uL Monocytes # (0-1.0) k/uL APTT (22.0-30.0) sec ABG pCO2 75 H* (35-45) mmHg ABG pO2 77 L (83-108) mmHg ABG HCO3 45 H* (21-25) mmol/L ABG Total CO2 47 H (19-24) mmol/L VBG pH 7.28 L (7.31-7.41) VBG pCO2 89 H* (37-51) mmHg VBG HCO3 42 H (24-28) mmol/L Chloride (98-107) mmol/L Carbon Dioxide (22-30) mmol/L BUN (7-17) mg/dL Creatinine (0.52-1.04) mg/dL Total Protein (6.3-8.2) g/dL
[2023-08-17 12:08] LABS: Glucose,Whole Blood 193 mg/dL (70-110)
[2023-08-17] MEDS: INSULIN ASPART (NovoLOG) 100 UNIT/ML VIAL SQ SCH ×3 (12:49→21:27)
--- NOTE | 2023-08-17 15:18 | P.CRDCN ---
History of Present Illness Consult date: 08/17/23 Consult reason: congestive heart failure History of present illness: History of present illness: This is a 63 year old female with past medical history of COPD, diabetes, hypertension, hyperlipidemia, diastolic heart failure. We've been asked to evaluate the patient for heart failure. Patient came in for [facility] where she was found to be having shortness of breath. Patient is seen today in the emergency center. She has been seen by pulmonary medicine status post 1 dose of IV Lasix and started on Lasix drip. EKG sinus tachycardia at 106 bpm Chest x-ray: Subsegmental perihilar patchy 2 confluent bibasilar opacities noted differential includes asymmetrical dependent edema versus bibasilar pneumonia WBC 17.8, hemoglobin 10.2, platelet count 384. INR 1.1. Sodium 142, potassium 4.7, BUN 43 creatinine 0.49. Liver function tests are normal. Troponins negative 3. ProBNP 4070. Pro-calcitonin 0.15. Home cardiac medications: Atorvastatin 80 mg at bedtime, fenofibrate 160 mg at bedtime, Lasix 40 mg daily, magnesium oxide 400 mg twice daily, Lopressor 25 mg twice daily, Aldactone 25 mg daily Echocardiogram performed 05/11/2023 revealed preserved LV size and systolic function. Mild dilated right ventricle. Moderate tricuspid regurgitation. Review Of Systems: At the time of my evaluation: Constitutional: No fever, no chills. No weakness, fatigue or lethargy. EENT: No headache. No dizziness. Lungs: No shortness of breath, cough, no sputum production. No wheezing. Cardiovascular: No chest pain, no lower extremity edema. No palpitations. No paroxysmal nocturnal dyspnea. No orthopnea. No lightheadedness or dizziness. No syncopal episodes. Abdominal: No abdominal pain. No nausea, vomiting. No diarrhea. No constipation. No bloody or tarry stools. Genitourinary: No dysuria.. No urinary retention. Musculoskeletal: No myalgias. No muscle weakness, no frequent falls. No back pain. No neck pain. Integumentary: No wounds. No rash. No unusual bruising. Neurologic: No aphasia. No facial droop. No change in mentation. No head injury. No headache. Physical examination: Gen: This is a 63-year-old female. She is resting on ER stretcher and appears to be comfortable. No acute distress. ] VS: reviewed patient on BiPAP. HEENT: Head is atraumatic, normocephalic. Pupils equal, round. Sclerae is anicteric. NECK: Supple. + JVD. . LUNGS: Crackles bilaterally decreased air entry. No intercostal retractions. HEART: Regular rate and rhythm. No murmur. ABDOMEN: Soft No tenderness. EXTREMITIES:2-3+ bilateral lower extremity edema. No calf tenderness. NEUROLOGICAL: Patient is awake, alert. Assessment: Acute on chronic hypoxic and hypercapnic respiratory failure COPD exacerbation Possible pneumonia Acute on chronic Heart failure exacerbation secondary to heart failure with pres erved ejection fraction Hypertension Dyslipidemia Diabetes Plan: After current bag of IV Lasix infusion completed, start patient on 40 mg IV twice dailyPossible pneumonia Resume home cardiac medications Monitor I&O, daily weights, I's and renal function No need to repeat echocardiogram Further recommendations to follow based upon clinical course Thank you kindly for this consultation. Nurse practitioner note has been reviewed, I agree with documented findings and plan of care. Patient was seen and examined. Past Medical History Past Medical History: Heart Failure, COPD, Diabetes Mellitus, Eye Disorder, GERD/Reflux, Hyperlipidemia, Hypertension, Osteoarthritis (OA) Additional Past Medical History / Comment(s): glaucoma. "Knees have been giving out." DDD. gout, lower back and left hip pain History of Any Multi-Drug Resistant Organisms: None Reported Past Surgical History: Back Surgery, Section, Cholecystectomy, Tubal Ligation Additional Past Surgical History / Comment(s): MARBIN PLACED FOR SCOLIOSIS as child. mult left breast biopsy, Past Anesthesia/Blood Transfusion Reactions: No Reported Reaction Past Psychological History: No Psychological Hx Reported Smoking Status: Current every day smoker Past Alcohol Use History: None Reported Past Drug Use History: None Reported - Past Family History Brother(s) Family Medical History: Diabetes Mellitus Mother Family Medical History: Cancer Father Family Medical History: Cancer Medications and Allergies Home Medications Medication Instructions Recorded Confirmed Type Cyclobenzaprine [Flexeril] 10 mg PO HS 07/11/14 08/17/23 History Omeprazole [PriLOSEC] 20 mg PO DAILY 08/05/14 08/17/23 History Fenofibrate 160 mg PO HS 05/27/16 08/17/23 History allopurinoL [Allopurinol] 100 mg PO DAILY 05/27/16 08/17/23 History Glimepiride [Amaryl] 8 mg PO DAILY 06/28/17 08/17/23 History rOPINIRole HCL [Requip] 0.25 mg PO HS 06/02/18 08/17/23 History Atorvastatin [Lipitor] 80 mg PO HS 01/21/22 08/17/23 History Empagliflozin [Jardiance] 25 mg PO DAILY 01/21/22 08/17/23 History Ergocalciferol (Vitamin D2) 1,250 mcg PO MO 01/21/22 08/17/23 History [Drisdol (50,000 Iu)] Magnesium Oxide [Magox 400] 400 mg PO BID@0800,1700 01/21/22 08/17/23 History metFORMIN HCL [Glucophage] 1,000 mg PO BID 01/21/22 08/17/23 History levETIRAcetam [Keppra] 1,500 mg PO BID 04/08/23 08/17/23 History Nicotine 21Mg/24Hr Patch [Habitrol] 1 patch TRANSDERM DAILY #4 patch 04/18/23 08/17/23 Rx Budesonide-Formot 160-4.5 Mcg 2 puff INHALATION RT-BID 30 Days 05/13/23 08/17/23 Rx [Symbicort 160-4.5 Mcg Inhaler] #1 each Furosemide [Lasix] 40 mg PO DAILY #60 tab 06/24/23 08/17/23 Rx Spironolactone [Aldactone] 25 mg PO DAILY #30 tab 06/24/23 08/17/23 Rx Albuterol Inhaler [Ventolin Hfa 2 puff INHALATION RT-Q6H PRN 08/03/23 08/17/23 History Inhaler] HYDROcodone/APAP 5-325MG [[place]atham 1 tab PO BID PRN #4 tab 08/10/23 08/17/23 Rx 5-325] Ipratropium-Albuterol Nebulize 3 ml INHALATION RT-Q4H each 08/10/23 08/17/23 Rx [Duoneb 0.5 mg-3 mg/3 ml Soln] Pregabalin [Lyrica] 150 mg PO BID #4 cap 08/10/23 08/17/23 Rx Insulin Detemir [Levemir Flexpen] 25 units SQ HS #1 each 08/11/23 08/17/23 Rx INSULIN ASPART (NovoLOG) [NovoLOG See Protocol SQ ACHS 08/17/23 08/17/23 History (formulary)] Magnesium Hydroxide [Milk of 7,200 mg PO DAILY PRN 08/17/23 08/17/23 History Magnesia Concentrate] Metoprolol Tartrate [Lopressor] 25 mg PO BID@0800,1700 08/17/23 08/17/23 History Na Phos,M-B/Na Phos,Di-Ba [Fleet 133 ml RECTAL DAILY PRN 08/17/23 08/17/23 History Adult] bisacodyL [Dulcolax] 10 mg RECTAL DAILY PRN 08/17/23 08/17/23 History predniSONE See Taper PO DIRECTED 08/17/23 08/17/23 History Allergies Allergy/AdvReac Type Severity Reaction Status Date / Time codeine AdvReac Severe Abdominal Verified 08/17/23 07:43 Pain Physical Exam Vitals: Vital Signs Temp Pulse Resp BP Pulse Ox FiO2 08/17/23 09:07 105 H 16 136/84 94 L 08/17/23 08:55 106 H 18 129/77 95 08/17/23 08:30 50 08/17/23 08:26 108 H 16 125/84 92 L 08/17/23 07:56 104 H 24 89 L 08/17/23 07:47 40 08/17/23 07:46 100 08/17/23 07:45 40 08/17/23 07:36 106 H 24 90 L 08/17/23 07:35 102 H 08/17/23 04:05 102 H 20 94 L 08/17/23 03:20 108 H 08/17/23 03:16 107 H 08/17/23 02:01 102 H 22 133/91 93 L 08/17/23 00:39 106 H 08/17/23 00:34 103 H 08/16/23 23:30 98.7 F 105 H 20 135/78 94 L Intake and Output 08/16/23 08/17/23 08/17/23 22:59 06:59 14:59 Output Total 1450 Balance -1450 Output: Urine 1450 Uretheral (Cardoza) 250 Other: Weight 81.193 kg Results 08/17/23 00:00 08/17/23 00:00 Cardiac Enzymes 08/17/23 08/17/23 08/17/23 Range/Units 00:00 00:00 02:50 AST 26 (14-36) U/L Troponin I 0.018 0.020 (0.000-0.034) ng/mL 08/17/23 Range/Units 06:20 AST (14-36) U/L Troponin I 0.022 (0.000-0.034) ng/mL Coagulation 08/17/23 Range/Units 00:00 PT 11.3 (9.0-12.0) sec APTT 21.3 L (22.0-30.0) sec CBC 08/17/23 Range/Units 00:00 WBC 17.8 H (3.8-10.6) k/uL RBC 4.20 (3.80-5.40) m/uL Hgb 10.2 L (11.4-16.0) gm/dL Hct 34.5 (34.0-46.0) % Plt Count 384 (150-450) k/uL Comprehensive Metabolic Panel 08/17/23 Range/Units 00:00 Sodium 142 (137-145) mmol/L Potassium 4.7 (3.5-5.1) mmol/L Chloride 96 L (98-107) mmol/L Carbon Dioxide 37 H (22-30) mmol/L BUN 43 H (7-17) mg/dL Creatinine 0.49 L (0.52-1.04) mg/dL Glucose 96 (74-99) mg/dL Calcium 9.0 (8.4-10.2) mg/dL AST 26 (14-36) U/L ALT 31 (4-34) U/L Alkaline Phosphatase 48 (38-126) U/L Total Protein 6.0 L (6.3-8.2) g/dL Albumin 3.6 (3.5-5.0) g/dL Current Medications Generic Name Dose Route Start Last Admin Trade Name Freq PRN Reason Stop Dose Admin Albuterol Sulfate 2.5 mg 08/17/23 08:00 08/17/23 07:33 Albuterol Nebulized 2.5 Mg/3 Ml INHALATION 2.5 mg RT-QID [facility]DEN Administration Albuterol Sulfate 2.5 mg 08/17/23 02:49 08/17/23 03:14 Albuterol Nebulized 2.5 Mg/3 Ml INHALATION 2.5 mg RT-Q2H PRN Administration Shortness Of Breath Or Wheezing Azithromycin 500 mg 08/18/23 09:00 Azithromycin 500 Mg Tab PO 08/19/23 09:01 DAILY [facility] Protocol Budesonide/Formoterol Fumarate 2 puff 08/17/23 08:00 08/17/23 07:34 Symbicort 160-4.5 Mcg Inhaler INHALATION Not Given RT-BID [facility] Ceftriaxone Sodium 2 gm/ 50 mls @ 100 mls/hr 08/17/23 23:00 Sodium Chloride IVPB 08/20/23 23:29 Q24H [facility] Protocol Furosemide 100 mg/ Sodium 100 mls @ 10 mls/hr 08/17/23 08:30 08/17/23 09:10 Chloride IV 10 mg/hr .Q10H [facility] 10 mls/hr Administration 10 MG/HR Methylprednisolone Sodium Succinate 60 mg 08/17/23 06:00 08/17/23 06:10 Methylprednisolone Sod Succi 125 Mg/2 Ml Vial IV 60 mg Q6HR [facility]NE Administration Miscellaneous Information 1 each 08/17/23 01:58 Pneumonia Protocol Utilized 1 Each Misc PO ONCE PRN Per Protocol Naloxone HCl 0.2 mg 08/17/23 01:58 Naloxone 0.4 Mg/Ml 1 Ml Vial IVP Q2M PRN Opioid Reversal Intake and Output 08/16/23 08/17/23 08/17/23 22:59 06:59 14:59 Output Total 1450 Balance -1450 Output: Urine 1450 Uretheral (Cardoza) 250 Other: Weight 81.193 kg 08/17/23 00:00 08/17/23 00:00
[2023-08-17 17:14] LABS: Glucose,Whole Blood 285 mg/dL (70-110)
[2023-08-17] MEDS: METOPROLOL TARTRATE 25 MG TAB PO SCH (17:40)
[2023-08-17] MEDS: MAGNESIUM OXIDE 400 MG TAB PO SCH (17:40)
[2023-08-17 21:10] LABS: Glucose,Whole Blood 331 mg/dL (70-110)
[2023-08-17] MEDS: PREGABALIN 75 MG CAP PO SCH (21:25)
[2023-08-17] MEDS: FENOFIBRATE 160 MG TAB PO SCH (21:25)
[2023-08-17] MEDS: ATORVASTATIN 80 MG TAB PO SCH (21:26)
[2023-08-17] MEDS: CYCLOBENZAPRINE 10 MG TAB PO SCH (21:26)
[2023-08-17] MEDS: INSULIN DETEMIR (LEVEMIR) 100 UNIT/ML SYR SQ SCH (21:27)
[2023-08-17] MEDS: FUROSEMIDE 10 MG/ML 4 ML VIAL IV SCH (21:33)
[2023-08-17] MEDS: HYDROcodone/APAP 5-325MG 1 EACH TAB PO PRN (23:29)
[2023-08-18] MEDS: FUROSEMIDE 100 MG in SODIUM CHLORIDE 0.9% 90 ML IV SCH ×2 (04:58→16:24)
[2023-08-18 06:05] LABS: Glucose,Whole Blood 211 mg/dL (70-110)
[2023-08-18] MEDS: methylPREDNISolone SOD SUCCI 125 MG/2 ML VIAL IV SCH ×4 (06:18→22:55)
[2023-08-18] MEDS: INSULIN ASPART (NovoLOG) 100 UNIT/ML VIAL SQ SCH ×4 (06:18→20:43)
--- NOTE | 2023-08-18 07:40 | XR ---
EXAMINATION TYPE: XR chest 1V portable DATE OF EXAM: 08/18/2023 Comparison: 08/17/2023 Clinical History: 63-year-old female pneumonia Findings: Left-sided Butler levi traverses the dextroconvex scoliosis. Heart mildly enlarged. Ectatic/tortuo us thoracic aorta. Mild interstitial prominence persists though the mid and lower lung opacities show significant interval improvement. Some mild patchy bibasilar densities and possible trace right effu eze remains. Impression: Significantly improving bibasilar opacities and effusions. Query improving CHF versus improving bibas ilar infiltrates.
[2023-08-18] MEDS: ALBUTEROL NEBULIZED 2.5 MG/3 ML INHALATION SCH ×4 (07:54→21:37)
[2023-08-18] MEDS: SYMBICORT 160-4.5 MCG INHALER INHALATION SCH ×2 (07:55→21:37)
[2023-08-18] MEDS: AZITHROMYCIN 500 MG TAB PO SCH (09:49)
[2023-08-18] MEDS: METOPROLOL TARTRATE 25 MG TAB PO SCH ×2 (09:49→17:21)
[2023-08-18] MEDS: PREGABALIN 75 MG CAP PO SCH ×2 (09:49→20:43)
[2023-08-18] MEDS: MAGNESIUM OXIDE 400 MG TAB PO SCH ×2 (09:49→17:21)
[2023-08-18] MEDS: allopurinoL 100 MG TAB PO SCH (09:49)
[2023-08-18] MEDS: SPIRONOLACTONE 25 MG TAB PO SCH (09:49)
[2023-08-18] MEDS: FUROSEMIDE 10 MG/ML 4 ML VIAL IV SCH ×2 (09:49→20:43)
[2023-08-18 11:17] LABS: Glucose,Whole Blood 379 mg/dL (70-110)
[2023-08-18 11:39] VITALS: BMI 31.2
--- NOTE | 2023-08-18 12:33 | P.PN ---
Subjective Progress Note Date: 08/18/23 Subjective: Patient is doing well from cardiac vessel standpoint. She appears volume overloaded. Her swelling has got better as compared to yesterday and she has responded well to diuretics. History of present illness: This is a 63 year old female with past medical history of COPD, diabetes, hypertension, hyperlipidemia, diastolic heart failure. We've been asked to evaluate the patient for heart failure. Patient came in for [facility] where she was found to be having shortness of breath. Patient is seen today in the emergency center. She has been seen by pulmonary medicine status post 1 dose of IV Lasix and started on Lasix drip. EKG sinus tachycardia at 106 bpm Chest x-ray: Subsegmental perihilar patchy 2 confluent bibasilar opacities noted differential includes asymmetrical dependent edema versus bibasilar pneumonia WBC 17.8, hemoglobin 10.2, platelet count 384. INR 1.1. Sodium 142, potassium 4.7, BUN 43 creatinine 0.49. Liver function tests are normal. Troponins negative 3. ProBNP 4070. Pro-calcitonin 0.15. Home cardiac medications: Atorvastatin 80 mg at bedtime, fenofibrate 160 mg at bedtime, Lasix 40 mg daily, magnesium oxide 400 mg twice daily, Lopressor 25 mg twice daily, Aldactone 25 mg daily Echocardiogram performed 05/11/2023 revealed preserved LV size and systolic function. Mild dilated right ventricle. Moderate tricuspid regurgitation. Review Of Systems: At the time of my evaluation: Constitutional: No fever, no chills. No weakness, fatigue or lethargy. EENT: No headache. No dizziness. Lungs: No shortness of breath, cough, no sputum production. No wheezing. Cardiovascular: No chest pain, no lower extremity edema. No palpitations. No paroxysmal nocturnal dyspnea. No orthopnea. No lightheadedness or dizziness. No syncopal episodes. Abdominal: No abdominal pain. No nausea, vomiting. No diarrhea. No constipation. No bloody or tarry stools. Genitourinary: No dysuria.. No urinary retention. Musculoskeletal: No myalgias. No muscle weakness, no frequent falls. No back pain. No neck pain. Integumentary: No wounds. No rash. No unusual bruising. Neurologic: No aphasia. No facial droop. No change in mentation. No head injury. No headache. Assessment: Acute on chronic hypoxic and hypercapnic respiratory failure COPD exacerbation Possible pneumonia Acute on chronic Heart failure exacerbation secondary to heart failure with preserved ejection fraction Right-sided heart failure Hypertension Dyslipidemia Diabetes Plan: Continue Lasix 40 mg IV twice a day. If you have function stays stable, we will make it 3 times a day tomorrow Continue atorvastatin, metoprolol 25 twice a day, Spironolactone 25 mg daily. Next step will be to increase her metoprolol if blood pressure and heart rate stays high Patient would benefit from addition of Jardiance when she is off steroids No need for repeating echocardiogram. Last echo from May shows a preserved LVEF with moderate TR, dilated RV. Patient has evidence of right-sided heart failure. Continue IV antibiotics for pneumonia and COPD management as per primary team Objective - Vital Signs Vital signs: Vital Signs Temp 97.9 F 08/18/23 08:30 Pulse 101 H 08/18/23 11:41 Resp 18 08/18/23 08:30 BP 153/85 08/18/23 08:30 Pulse Ox 94 L 08/18/23 08:30 FiO2 50 08/18/23 04:45 Intake & Output 08/17/23 08/18/23 08/18/23 18:59 06:59 18:59 Intake Total 83.833 360 Output Total 2450 2125 650 Balance -2366.167 -2125 -290 Weight 81.193 kg 77.5 kg Intake: Intake, IV Titration 83.833 Amount Furosemide 100 mg In 83.833 Sodium Chloride 0.9% 90 ml @ 10 MG/HR 10 mls/hr IV .Q10H [facility] Rx#: [id number] Oral 360 Output: Urine 2450 2125 650 Uretheral (Cardoza) 250 Other: Voiding Method Indwelling Catheter Indwelling Catheter - Labs CBC & Chem 7: 08/17/23 00:00 08/17/23 00:00 Labs: Abnormal Lab Results - Last 24 Hours (Table) 08/17/23 08/17/23 08/17/23 Range/Units 00:00 17:12 21:08 POC Glucose (mg/dL) 285 H 331 H (70-110) mg/dL Hemoglobin A1c 7.8 H (<=6.0) % 08/18/23 08/18/23 Range/Units 06:03 11:15 POC Glucose (mg/dL) 211 H 379 H (70-110) mg/dL Hemoglobin A1c (<=6.0) %
--- NOTE | 2023-08-18 13:11 | P.PN ---
Subjective Progress Note Date: 08/18/23 * 62-year-old white female with past medical history significant for oxygen dependent COPD, congestive heart failure, hypertension, dyslipidemia, type 2 diabetes mellitus, glaucoma, chronic low back pain, and chronic and ongoing tobacco dependence who presented to the ER because of worsening shortness of b reath. Patient has multiple similar admissions in the past few months for shortness of breath. Patient was currently living in [facility] after being discharged there a week before. Patient apparently got short of breath on ambulation. Denied any chest pain. Denied any fever or chills. There was no complain of swelling of feet. Denies any recent fall. No complain of palpitation. No carotid orthopnea or PND. Because of this worsening shortness of breath, patient came to the ER * Initial lab work done in the ER showed WBC 17.8, hemoglobin 10.2, platelet count 384, sodium 142, potassium 4.7, BUN 42, creatinine 0.49 troponin 0.018, total protein 6 * EKG done in the ER showed heart rate 106, no ST segment elevation, no T-wave inversion seen * Chest x-ray done in the ER subsegmental perihilar and patchy to confluent bibasilar opacities noted. Differential includes asymmetric dependent edema versus bibasilar pneumonia * 08/18/23: Patient seen and evaluated bedside. Patient been admitted for shortness of breath CHF exacerbation concern for overlap pneumonia. Patient placed on 4 L of oxygen, we'll continue to monitor post diuretics seen by cardiology and pulmonary medicine Objective - Vital Signs Vital signs: Vital Signs Temp 97.9 F 08/18/23 08:30 Pulse 101 H 08/18/23 11:41 Resp 18 08/18/23 08:30 BP 153/85 08/18/23 08:30 Pulse Ox 94 L 08/18/23 08:30 FiO2 50 08/18/23 04:45 Intake & Output 08/17/23 08/18/23 08/18/23 18:59 06:59 18:59 Intake Total 83.833 360 Output Total 2450 2125 650 Balance -2366.167 -2125 -290 Weight 81.193 kg 77.5 kg Intake: Intake, IV Titration 83.833 Amount Furosemide 100 mg In 83.833 Sodium Chloride 0.9% 90 ml @ 10 MG/HR 10 mls/hr IV .Q10H [facility] Rx#: [id number] Oral 360 Output: Urine 2450 2125 650 Uretheral (Cardoza) 250 Other: Voiding Method Indwelling Catheter Indwelling Catheter - Exam PHYSICAL EXAMINATION: GENERAL: The patient is alert and oriented x3, nasal cannula in place, 4 L ill appearance HEENT: Pupils are round and equally reacting to light. EOMI. CARDIOVASCULAR: S1 and S2 present. No murmurs, rubs, or gallops. Bilateral leg edema PULMONARY: Decreased breath sounds bilaterally, rhonchi audible ABDOMEN: Soft, nontender, nondistended, normoactive bowel sounds. No palpable organomegaly. MUSCULOSKELETAL: No joint swelling or deformity. EXTREMITIES: No cyanosis, clubbing, or pedal edema. NEUROLOGICAL: Gross neurological examination did not reveal any focal deficits. SKIN: Bruising noted - Labs CBC & Chem 7: 08/17/23 00:00 08/17/23 00:00 Labs: Abnormal Lab Results - Last 24 Hours (Table) 08/17/23 08/17/23 08/17/23 Range/Units 00:00 17:12 21:08 POC Glucose (mg/dL) 285 H 331 H (70-110) mg/dL Hemoglobin A1c 7.8 H (<=6.0) % 08/18/23 08/18/23 Range/Units 06:03 11:15 POC Glucose (mg/dL) 211 H 379 H (70-110) mg/dL Hemoglobin A1c (<=6.0) % Assessment and Plan Assessment: Assessment and plan Acute on chronic hypoxic hypercapnic respiratory failure Acute on chronic exacerbation of congestive heart failure diastolic dysfunction Community-acquired pneumonia COPD exacerbation Hypertension Hyperlipidemia Diabetes mellitus * In regards to CHF exacerbation continue patient on diuretics, on Lasix continue to monitor intake and output cardiology following * In regards to COPD exacerbation, continue patient on Solu-Medrol, continue breathing treatments * In regards to multifocal pneumonia continue Rocephin and azithromycin * Regards to diabetes mellitus continue patient on Levemir and NovoLog monitor for hypoglycemia * CODE STATUS is full code
--- NOTE | 2023-08-18 14:48 | P.PN ---
Subjective Progress Note Date: 08/18/23 Principal diagnosis: Acute hypoxic and hypercapnic respiratory failure, multifactorial, secondary to acute diastolic congestive heart failure and acute exacerbation of COPD I am seeing this patient in consultation today 08/17/2023 in the emergency room for acute hypoxemic and hypercapnic respiratory failure. Patient is a 62-year-old white female with past medical history significant for oxygen dependent COPD, congestive heart failure, hypertension, dyslipidemia, type 2 diabetes mellitus, glaucoma, chronic low back pain, and chronic and ongoing tobacco dependence. She has had multiple recent hospital admissions this year for similar issues. Patient was actually just recently discharged on August 11 for similar issues. She was BiPAP dependent for several days. Apparently, while at [facility] for rehab, the patient became severely short of breath and hypoxic while up walking around. Patient is currently up sitting in bed, on 5 L/m nasal cannula, in no acute distress. She is alert and talkative. She is technically oriented, but a poor historian. She denies any complaints. Chest x- ray on arrival showed cardiomegaly with pulmonary vascular congestion. There are also some bibasilar infiltrates, possible atelectasis vs developing pneumonia. ABG done on arrival was consistent with hypercapnic respiratory failure. Patient does have history of severe oxygen dependent COPD and congestive heart failure. CBC on arrival showed some leukocytosis with a WBC count of 17.8, hemoglobin 10.2, hematocrit 34.5, platelets 384. BMP on arrival showed a sodium 142, potassium 4.7, chloride 96, serum bicarbonate 37, B1 43, creatinine 0.49, glucose 96. Lactic acid level was 1.1. Troponin 0.018. NT proBNP was elevated at 4070. Patient was started on Lasix 40 mg twice a day. Patient was also empirically started on azithromycin and ceftriaxone. Currently afebrile. Patient appears hemodynamically stable, is being admitted to the cardiac stepdown unit. Patient was reexamined today on 08/18/2023, patient was on Lasix drip for the last 24 hours, she had a significant amount of diuresis since admission. Patient was seen by cardiology and transitioned to Lasix 40 mg IV push twice a day patient is feeling much per today compared to how she felt when I saw her yesterday in the ER. She is now on 4 L nasal cannula with O2 sats of 94% she is hemodynamically stable, and does not seem to be in distress looking at her urine output from yesterday, patient had at least at least 4.5 L negative fluid balance. And clinically she is much improved. Objective - Vital Signs Vital signs: Vital Signs Temp 97.9 F 08/18/23 08:30 Pulse 95 08/18/23 14:00 Resp 18 08/18/23 14:00 BP 127/65 08/18/23 12:00 Pulse Ox 93 L 08/18/23 12:00 FiO2 50 08/18/23 04:45 Intake & Output 08/17/23 08/18/23 08/18/23 18:59 06:59 18:59 Intake Total 83.833 960 Output Total 2450 2125 1325 Balance -2366.167 -2125 -365 Weight 81.193 kg 77.5 kg Intake: Intake, IV Titration 83.833 Amount Furosemide 100 mg In 83.833 Sodium Chloride 0.9% 90 ml @ 10 MG/HR 10 mls/hr IV .Q10H [facility] Rx#: [id number] Oral 960 Output: Urine 2450 2125 1325 Uretheral (Cardoza) 250 Other: Voiding Method Indwelling Catheter Indwelling Catheter - Exam Physical Exam: Revealed a 63-year-old female in no distress Head: Atraumatic, normocephalic HEENT:[Neck is supple.] [No neck masses.] [No thyromegaly.] [No JVD.] Chest: [Minimal fine crackles at the bases no rhonchi no wheezes Cardiac Exam: [Normal S1 and S2, no S3 gallop, no murmur.] Abdomen: [Soft, nontender, no megaly, no rebound, no guarding, normal bowel sounds.] Extremities: [No clubbing, 2+ bipedal edema, no cyanosis. Neurological Exam: [No focal neurologic deficit.] Alert oriented 3 Psychiatric: Normal mood affect and normal mental status examination. Condition: No rashes - Labs CBC & Chem 7: 08/17/23 00:00 08/17/23 00:00 Labs: Abnormal Lab Results - Last 24 Hours (Table) 08/17/23 08/17/23 08/17/23 Range/Units 00:00 17:12 21:08 POC Glucose (mg/dL) 285 H 331 H (70-110) mg/dL Hemoglobin A1c 7.8 H (<=6.0) % 08/18/23 08/18/23 Range/Units 06:03 11:15 POC Glucose (mg/dL) 211 H 379 H (70-110) mg/dL Hemoglobin A1c (<=6.0) % Microbiology - Last 24 Hours (Table) 08/17/23 02:15 Blood Culture - Preliminary Blood 08/17/23 02:00 Blood Culture - Preliminary Blood Assessment and Plan Assessment: Impression: Acute hypoxic and hypercapnic respiratory failure Acute exacerbation of diastolic congestive heart failure Acute COPD exacerbation Frequent falls Acute metabolic encephalopathy, resolved Ongoing nicotine dependence Benign essential hypertension Type 2 diabetes without complications Obesity with BMI of 32.7 Recommendation: Continue oxygen and titrate accordingly Continue updrafts and Solu-Medrol Continue Symbicort Continue Lasix Chest x-ray has shown significant improvement and will repeat chest x-ray in the next 24 hours Consider discharge planning in the next 24-48 hours. Close monitoring of electrolytes and renal profile BY Admitting physician We will continue to follow Time with Patient: Less than 30
[2023-08-18 16:38] LABS: Glucose,Whole Blood 239 mg/dL (70-110)
[2023-08-18 19:41] LABS: Glucose,Whole Blood 423 mg/dL (70-110)
[2023-08-18] MEDS: INSULIN DETEMIR (LEVEMIR) 100 UNIT/ML SYR SQ SCH (20:42)
[2023-08-18] MEDS: ATORVASTATIN 80 MG TAB PO SCH (20:43)
[2023-08-18] MEDS: CYCLOBENZAPRINE 10 MG TAB PO SCH (20:43)
[2023-08-18] MEDS: FENOFIBRATE 160 MG TAB PO SCH (20:43)
[2023-08-18] MEDS: HYDROcodone/APAP 5-325MG 1 EACH TAB PO PRN (21:59)
[2023-08-19 06:03] LABS: Glucose,Whole Blood 271 mg/dL (70-110)
[2023-08-19] MEDS: INSULIN ASPART (NovoLOG) 100 UNIT/ML VIAL SQ SCH ×4 (06:15→21:26)
[2023-08-19] MEDS: methylPREDNISolone SOD SUCCI 125 MG/2 ML VIAL IV SCH ×4 (06:15→23:45)
[2023-08-19] MEDS: AZITHROMYCIN 500 MG TAB PO SCH (08:41)
[2023-08-19] MEDS: allopurinoL 100 MG TAB PO SCH (08:41)
[2023-08-19] MEDS: PREGABALIN 75 MG CAP PO SCH ×2 (08:41→21:26)
[2023-08-19] MEDS: MAGNESIUM OXIDE 400 MG TAB PO SCH ×2 (08:41→17:28)
[2023-08-19] MEDS: FUROSEMIDE 10 MG/ML 4 ML VIAL IV SCH ×2 (08:41→21:27)
[2023-08-19] MEDS: SPIRONOLACTONE 25 MG TAB PO SCH (08:41)
[2023-08-19] MEDS: METOPROLOL TARTRATE 25 MG TAB PO SCH ×2 (08:41→17:27)
[2023-08-19] MEDS: ALBUTEROL NEBULIZED 2.5 MG/3 ML INHALATION SCH ×3 (08:50→15:47)
[2023-08-19] MEDS: SYMBICORT 160-4.5 MCG INHALER INHALATION SCH (08:52)
[2023-08-19 10:29] LABS: Anisocytosis Moderate; HGB 10.2 gm/dL (11.4-16.0); Hypochromasia Marked; MCH 24.5 pg (25.0-35.0); MCHC 29.2 g/dL (31.0-37.0); MCV 84.1 fL (80.0-100.0); Mean Platelet Volume 8.6; Microcytosis Slight; Platelet Count 343 k/uL (150-450); Poikilocytosis Slight; RBC 4.16 m/uL (3.80-5.40); RDW 23.3 % (11.5-15.5)
[2023-08-19 10:39] LABS: African American GFR (CKD) >90 (>60 ml/min/1.73 sqM); Blood Urea Nitrogen 55 mg/dL (7-17); C Reactive Protein 0.7 mg/dL (<1.0); Chloride 82 mmol/L (98-107); Glucose 432 mg/dL (74-99); Non-African American GFR(CKD) >90 (>60 ml/min/1.73 sqM); Potassium 4.6 mmol/L (3.5-5.1); Sodium 135 mmol/L (137-145)
[2023-08-19 10:45] LABS: Anion Gap 11 mmol/L
[2023-08-19 11:21] LABS: Carbon Dioxide 42 mmol/L (22-30)
[2023-08-19 12:34] LABS: Glucose,Whole Blood 310 mg/dL (70-110)
--- NOTE | 2023-08-19 15:58 | P.PN ---
Subjective Progress Note Date: 08/19/23 Principal diagnosis: Acute hypoxic and hypercapnic respiratory failure, multifactorial, secondary to acute diastolic congestive heart failure and acute exacerbation of COPD I am seeing this patient in consultation today 08/17/2023 in the emergency room for acute hypoxemic and hypercapnic respiratory failure. Patient is a 62-year-old white female with past medical history significant for oxygen dependent COPD, congestive heart failure, hypertension, dyslipidemia, type 2 diabetes mellitus, glaucoma, chronic low back pain, and chronic and ongoing tobacco dependence. She has had multiple recent hospital admissions this year for similar issues. Patient was actually just recently discharged on August 11 for similar issues. She was BiPAP dependent for several days. Apparently, while at [facility] for rehab, the patient became severely short of breath and hypoxic while up walking around. Patient is currently up sitting in bed, on 5 L/m nasal cannula, in no acute distress. She is alert and talkative. She is technically oriented, but a poor historian. She denies any complaints. Chest x- ray on arrival showed cardiomegaly with pulmonary vascular congestion. There are also some bibasilar infiltrates, possible atelectasis vs developing pneumonia. ABG done on arrival was consistent with hypercapnic respiratory failure. Patient does have history of severe oxygen dependent COPD and congestive heart failure. CBC on arrival showed some leukocytosis with a WBC count of 17.8, hemoglobin 10.2, hematocrit 34.5, platelets 384. BMP on arrival showed a sodium 142, potassium 4.7, chloride 96, serum bicarbonate 37, B1 43, creatinine 0.49, glucose 96. Lactic acid level was 1.1. Troponin 0.018. NT proBNP was elevated at 4070. Patient was started on Lasix 40 mg twice a day. Patient was also empirically started on azithromycin and ceftriaxone. Currently afebrile. Patient appears hemodynamically stable, is being admitted to the cardiac stepdown unit. Patient was reexamined today on 08/18/2023, patient was on Lasix drip for the last 24 hours, she had a significant amount of diuresis since admission. Patient was seen by cardiology and transitioned to Lasix 40 mg IV push twice a day patient is feeling much per today compared to how she felt when I saw her yesterday in the ER. She is now on 4 L nasal cannula with O2 sats of 94% she is hemodynamically stable, and does not seem to be in distress looking at her urine output from yesterday, patient had at least at least 4.5 L negative fluid balance. And clinically she is much improved. Reevaluated today on 08/19/2023, patient is doing better today, breathing a lot easier, continues to diurese, patient is now on Lasix 40 mg IV push every 12 hours. Her electrolytes are normal except for bicarb of 42 BUN of 55 creatinine 0.70 I will add Diamox for this patient. Blood sugars remain high in the 400 range almost. That is being addressed by the admitting physician/hospitalist chest x-ray yesterday showed significant improvement in her interstitial edema. Clinically the patient continues to do well Objective - Vital Signs Vital signs: Vital Signs Temp 96.6 F L 08/19/23 15:50 Pulse 87 08/19/23 15:50 Resp 16 08/19/23 15:50 BP 146/69 08/19/23 15:50 Pulse Ox 100 08/19/23 15:50 FiO2 50 08/19/23 04:15 Intake & Output 08/18/23 08/19/23 08/19/23 18:59 06:59 18:59 Intake Total 1080 800 Output Total 1526 924 6068 Balance -245 -750 -200 Weight 77.5 kg Intake: Oral 1080 800 Output: Urine 3332 041 1731 Other: Voiding Method Indwelling Catheter External Catheter External Catheter - Exam Physical Exam: Revealed a 63-year-old female in no distress, on 5 L nasal cannula but her O2 saturation is 100% Head: Atraumatic, normocephalic HEENT:[Neck is supple.] [No neck masses.] [No thyromegaly.] [No JVD.] Chest: [Minimal fine crackles at the bases no rhonchi no wheezes Cardiac Exam: [Normal S1 and S2, no S3 gallop, no murmur.] Abdomen: [Soft, nontender, no megaly, no rebound, no guarding, normal bowel sounds.] Extremities: [No clubbing, 2+ bipedal edema, no cyanosis. Neurological Exam: [No focal neurologic deficit.] Alert oriented 3 Psychiatric: Normal mood affect and normal mental status examination. Condition: No rashes - Labs CBC & Chem 7: 08/19/23 09:41 08/19/23 09:41 Labs: Abnormal Lab Results - Last 24 Hours (Table) 08/18/23 08/18/23 08/19/23 Range/Units 16:36 19:39 06:01 WBC (3.8-10.6) k/uL Hgb (11.4-16.0) gm/dL MCH (25.0-35.0) pg MCHC (31.0-37.0) g/dL RDW (11.5-15.5) % Sodium (137-145) mmol/L Chloride (98-107) mmol/L Carbon Dioxide (22-30) mmol/L BUN (7-17) mg/dL Glucose (74-99) mg/dL POC Glucose (mg/dL) 239 H 423 H 271 H (70-110) mg/dL 08/19/23 08/19/23 08/19/23 Range/Units 09:41 09:41 12:06 WBC 13.0 H (3.8-10.6) k/uL Hgb 10.2 L (11.4-16.0) gm/dL MCH 24.5 L (25.0-35.0) pg MCHC 29.2 L (31.0-37.0) g/dL RDW 23.3 H (11.5-15.5) % Sodium 135 L (137-145) mmol/L Chloride 82 L (98-107) mmol/L Carbon Dioxide 42 H* (22-30) mmol/L BUN 55 H (7-17) mg/dL Glucose 432 H (74-99) mg/dL POC Glucose (mg/dL) 310 H (70-110) mg/dL Microbiology - Last 24 Hours (Table) 08/17/23 02:15 Blood Culture - Preliminary Blood 08/17/23 02:00 Blood Culture - Preliminary Blood Assessment and Plan Assessment: Impression: Acute hypoxic and hypercapnic respiratory failure Acute exacerbation of diastolic congestive heart failure Acute COPD exacerbation Frequent falls Acute metabolic encephalopathy, resolved Ongoing nicotine dependence Benign essential hypertension Type 2 diabetes without complications Obesity with BMI of 32.7 Recommendation: Continue oxygen and titrate accordingly, patient may need to be on Coumadin at this point since her O2 saturations in the 100% on 5 L Continue updrafts and Solu-Medrol Continue Symbicort Continue Lasix, 40 mg IV push twice a day Chest x-ray has shown significant improvement , and that is reassuring Continue antibiotics however may switch in a.m. to oral antibiotics her pro calcitonin is borderline elevated We will continue to follow Time with Patient: Less than 30 (`)
[2023-08-19] MEDS: HYDROcodone/APAP 5-325MG 1 EACH TAB PO PRN ×2 (16:16→22:24)
[2023-08-19 16:57] LABS: Glucose,Whole Blood 457 mg/dL (70-110)
[2023-08-19] MEDS ORDERED: INSULIN ASPART (NovoLOG) 100 UNIT/ML VIAL SQ ONE (17:10)
--- NOTE | 2023-08-19 17:56 | P.PN ---
Subjective Progress Note Date: 08/19/23 * 62-year-old white female with past medical history significant for oxygen dependent COPD, congestive heart failure, hypertension, dyslipidemia, type 2 diabetes mellitus, glaucoma, chronic low back pain, and chronic and ongoing tobacco dependence who presented to the ER because of worsening shortness of b reath. Patient has multiple similar admissions in the past few months for shortness of breath. Patient was currently living in [facility] after being discharged there a week before. Patient apparently got short of breath on ambulation. Denied any chest pain. Denied any fever or chills. There was no complain of swelling of feet. Denies any recent fall. No complain of palpitation. No carotid orthopnea or PND. Because of this worsening shortness of breath, patient came to the ER * Initial lab work done in the ER showed WBC 17.8, hemoglobin 10.2, platelet count 384, sodium 142, potassium 4.7, BUN 42, creatinine 0.49 troponin 0.018, total protein 6 * EKG done in the ER showed heart rate 106, no ST segment elevation, no T-wave inversion seen * Chest x-ray done in the ER subsegmental perihilar and patchy to confluent bibasilar opacities noted. Differential includes asymmetric dependent edema versus bibasilar pneumonia Objective - Vital Signs Vital signs: Vital Signs Temp 98.2 F 08/19/23 08:00 Pulse 100 08/19/23 11:47 Resp 19 08/19/23 11:15 BP 121/69 08/19/23 08:00 Pulse Ox 97 08/19/23 08:53 FiO2 50 08/19/23 04:15 Intake & Output 08/18/23 08/19/23 08/19/23 18:59 06:59 18:59 Intake Total 1080 800 Output Total 8739 803 3633 Balance -245 -750 -200 Weight 77.5 kg Intake: Oral 1080 800 Output: Urine 1177 314 2219 Other: Voiding Method Indwelling Catheter External Catheter External Catheter - Exam GENERAL: The patient is alert and oriented x3, nasal cannula in place, 4 L ill appearance HEENT: Pupils are round and equally reacting to light. EOMI. CARDIOVASCULAR: S1 and S2 present. No murmurs, rubs, or gallops. Bilateral leg edema PULMONARY: Decreased breath sounds bilaterally, rhonchi audible ABDOMEN: Soft, nontender, nondistended, normoactive bowel sounds. No palpable organomegaly. MUSCULOSKELETAL: No joint swelling or deformity. EXTREMITIES: No cyanosis, clubbing, or pedal edema. NEUROLOGICAL: Gross neurological examination did not reveal any focal deficits. SKIN: Bruising noted - Labs CBC & Chem 7: 08/19/23 09:41 08/19/23 09:41 Labs: Abnormal Lab Results - Last 24 Hours (Table) 08/18/23 08/18/23 08/19/23 Range/Units 16:36 19:39 06:01 WBC (3.8-10.6) k/uL Hgb (11.4-16.0) gm/dL MCH (25.0-35.0) pg MCHC (31.0-37.0) g/dL RDW (11.5-15.5) % Sodium (137-145) mmol/L Chloride (98-107) mmol/L Carbon Dioxide (22-30) mmol/L BUN (7-17) mg/dL Glucose (74-99) mg/dL POC Glucose (mg/dL) 239 H 423 H 271 H (70-110) mg/dL 08/19/23 08/19/23 Range/Units 09:41 09:41 WBC 13.0 H (3.8-10.6) k/uL Hgb 10.2 L (11.4-16.0) gm/dL MCH 24.5 L (25.0-35.0) pg MCHC 29.2 L (31.0-37.0) g/dL RDW 23.3 H (11.5-15.5) % Sodium 135 L (137-145) mmol/L Chloride 82 L (98-107) mmol/L Carbon Dioxide 42 H* (22-30) mmol/L BUN 55 H (7-17) mg/dL Glucose 432 H (74-99) mg/dL POC Glucose (mg/dL) (70-110) mg/dL Microbiology - Last 24 Hours (Table) 08/17/23 02:15 Blood Culture - Preliminary Blood 08/17/23 02:00 Blood Culture - Preliminary Blood Assessment and Plan Assessment: Acute on chronic hypoxic hypercapnic respiratory failure Acute on chronic exacerbation of congestive heart failure diastolic dysfunction Community-acquired pneumonia COPD exacerbation Hypertension Hyperlipidemia Diabetes mellitus * In regards to CHF exacerbation continue patient on diuretics, on Lasix continue to monitor intake and output cardiology following * In regards to COPD exacerbation, continue patient on Solu-Medrol, continue breathing treatments * In regards to multifocal pneumonia continue Rocephin and azithromycin * Regards to diabetes mellitus continue patient on Levemir and NovoLog monitor for hypoglycemia * CODE STATUS is full code
--- NOTE | 2023-08-19 18:06 | P.PN ---
Subjective Progress Note Date: 08/19/23 Subjective: Patient is doing well from cardiac vessel standpoint. She appears volume overloaded. Her swelling has got better as compared to yesterday and she has responded well to diuretics. History of present illness: This is a 63 year old female with past medical history of COPD, diabetes, hypertension, hyperlipidemia, diastolic heart failure. We've been asked to evaluate the patient for heart failure. Patient came in for [facility] where she was found to be having shortness of breath. Patient is seen today in the emergency center. She has been seen by pulmonary medicine status post 1 dose of IV Lasix and started on Lasix drip. EKG sinus tachycardia at 106 bpm Chest x-ray: Subsegmental perihilar patchy 2 confluent bibasilar opacities noted differential includes asymmetrical dependent edema versus bibasilar pneumonia WBC 17.8, hemoglobin 10.2, platelet count 384. INR 1.1. Sodium 142, potassium 4.7, BUN 43 creatinine 0.49. Liver function tests are normal. Troponins negative 3. ProBNP 4070. Pro-calcitonin 0.15. Home cardiac medications: Atorvastatin 80 mg at bedtime, fenofibrate 160 mg at bedtime, Lasix 40 mg daily, magnesium oxide 400 mg twice daily, Lopressor 25 mg twice daily, Aldactone 25 mg daily Echocardiogram performed 05/11/2023 revealed preserved LV size and systolic function. Mild dilated right ventricle. Moderate tricuspid regurgitation. Review Of Systems: At the time of my evaluation: Constitutional: No fever, no chills. No weakness, fatigue or lethargy. EENT: No headache. No dizziness. Lungs: No shortness of breath, cough, no sputum production. No wheezing. Cardiovascular: No chest pain, no lower extremity edema. No palpitations. No paroxysmal nocturnal dyspnea. No orthopnea. No lightheadedness or dizziness. No syncopal episodes. Abdominal: No abdominal pain. No nausea, vomiting. No diarrhea. No constipation. No bloody or tarry stools. Genitourinary: No dysuria.. No urinary retention. Musculoskeletal: No myalgias. No muscle weakness, no frequent falls. No back pain. No neck pain. Integumentary: No wounds. No rash. No unusual bruising. Neurologic: No aphasia. No facial droop. No change in mentation. No head injury. No headache. Assessment: Acute on chronic hypoxic and hypercapnic respiratory failure COPD exacerbation Possible pneumonia Acute on chronic Heart failure exacerbation secondary to heart failure with preserved ejection fraction Right-sided heart failure Hypertension Dyslipidemia Diabetes Plan: Continue Lasix 40 mg IV twice a day. If you have function stays stable, we will make it 3 times a day tomorrow Continue atorvastatin, metoprolol 25 twice a day, Spironolactone 25 mg daily. Next step will be to increase her metoprolol if blood pressure and heart rate stays high Patient would benefit from addition of Jardiance when she is off steroids No need for repeating echocardiogram. Last echo from May shows a preserved LVEF with moderate TR, dilated RV. Patient has evidence of right-sided heart failure. Continue IV antibiotics for pneumonia and COPD management as per primary team Objective - Vital Signs Vital signs: Vital Signs Temp 96.6 F L 08/19/23 15:50 Pulse 87 08/19/23 15:50 Resp 16 08/19/23 15:50 BP 146/69 08/19/23 15:50 Pulse Ox 100 08/19/23 15:50 FiO2 50 08/19/23 04:15 Intake & Output 08/18/23 08/19/23 08/19/23 18:59 06:59 18:59 Intake Total 1080 1999 Output Total 2881 237 5165 Balance -245 -750 250 Weight 77.5 kg Intake: Oral 1080 1999 Output: Urine 7791 624 9713 Other: Voiding Method Indwelling Catheter External Catheter External Catheter - Labs CBC & Chem 7: 08/19/23 09:41 08/19/23 09:41 Labs: Abnormal Lab Results - Last 24 Hours (Table) 08/18/23 08/19/23 08/19/23 Range/Units 19:39 06:01 09:41 WBC 13.0 H (3.8-10.6) k/uL Hgb 10.2 L (11.4-16.0) gm/dL MCH 24.5 L (25.0-35.0) pg MCHC 29.2 L (31.0-37.0) g/dL RDW 23.3 H (11.5-15.5) % Sodium (137-145) mmol/L Chloride (98-107) mmol/L Carbon Dioxide (22-30) mmol/L BUN (7-17) mg/dL Glucose (74-99) mg/dL POC Glucose (mg/dL) 423 H 271 H (70-110) mg/dL 08/19/23 08/19/23 08/19/23 Range/Units 09:41 12:06 16:47 WBC (3.8-10.6) k/uL Hgb (11.4-16.0) gm/dL MCH (25.0-35.0) pg MCHC (31.0-37.0) g/dL RDW (11.5-15.5) % Sodium 135 L (137-145) mmol/L Chloride 82 L (98-107) mmol/L Carbon Dioxide 42 H* (22-30) mmol/L BUN 55 H (7-17) mg/dL Glucose 432 H (74-99) mg/dL POC Glucose (mg/dL) 310 H 457 H (70-110) mg/dL Microbiology - Last 24 Hours (Table) 08/17/23 02:15 Blood Culture - Preliminary Blood 08/17/23 02:00 Blood Culture - Preliminary Blood
[2023-08-19 20:15] LABS: Glucose,Whole Blood 418 mg/dL (70-110)
[2023-08-19] MEDS: FENOFIBRATE 160 MG TAB PO SCH (21:26)
[2023-08-19] MEDS: CYCLOBENZAPRINE 10 MG TAB PO SCH (21:26)
[2023-08-19] MEDS: acetaZOLAMIDE 250 MG TAB PO SCH (21:26)
[2023-08-19] MEDS: ATORVASTATIN 80 MG TAB PO SCH (21:26)
[2023-08-19] MEDS: INSULIN DETEMIR (LEVEMIR) 100 UNIT/ML SYR SQ SCH (21:27)
[2023-08-20] MEDS: SYMBICORT 160-4.5 MCG INHALER INHALATION SCH ×3 (01:09→22:01)
[2023-08-20] MEDS: ALBUTEROL NEBULIZED 2.5 MG/3 ML INHALATION SCH ×5 (01:09→22:01)
[2023-08-20 06:11] LABS: Glucose,Whole Blood 168 mg/dL (70-110)
[2023-08-20] MEDS: methylPREDNISolone SOD SUCCI 125 MG/2 ML VIAL IV SCH ×2 (06:27→12:43)
[2023-08-20] MEDS: INSULIN ASPART (NovoLOG) 100 UNIT/ML VIAL SQ SCH ×4 (06:28→21:45)
--- NOTE | 2023-08-20 08:17 | XR ---
EXAMINATION TYPE: XR chest 1V portable DATE OF EXAM: 08/20/2023 HISTORY: Shortness of breath. COMPARISON: 08/18/2023 TECHNIQUE: Single view of the chest is submitted. FINDINGS: Demonstrated are scattered senescent parenchymal change. Persistent cardiomegaly with pulmonary venous congestion and scattered infiltrates as well as tiny ef fusions. Correlate for CHF. Hilar and mediastinal structures are within normal limits. Degenerative changes are seen of the dorsal spine. IMPRESSION: 1. Persistent cardiomegaly with pulmonary venous congestion and scattered infiltrates as well as tin y effusions. Correlate for CHF.
[2023-08-20] MEDS: acetaZOLAMIDE 250 MG TAB PO SCH ×2 (08:48→19:57)
[2023-08-20] MEDS: allopurinoL 100 MG TAB PO SCH (08:48)
[2023-08-20] MEDS: MAGNESIUM OXIDE 400 MG TAB PO SCH ×2 (08:48→16:38)
[2023-08-20] MEDS: METOPROLOL TARTRATE 25 MG TAB PO SCH ×2 (08:48→16:38)
[2023-08-20] MEDS: PREGABALIN 75 MG CAP PO SCH ×2 (08:48→19:57)
[2023-08-20] MEDS: FUROSEMIDE 10 MG/ML 4 ML VIAL IV SCH (08:48)
[2023-08-20] MEDS: SPIRONOLACTONE 25 MG TAB PO SCH (08:48)
[2023-08-20 09:36] LABS: Anisocytosis Moderate; Basophils % (A) 0 %; Eosinophils % (A) 0 %; HCT 36.8 % (34.0-46.0); HGB 10.8 gm/dL (11.4-16.0); Hypochromasia Marked; Lymphocytes # (A) 0.4 k/uL (1.0-4.8); Lymphocytes % (A) 4 %; MCH 24.7 pg (25.0-35.0); MCHC 29.3 g/dL (31.0-37.0); MCV 84.3 fL (80.0-100.0); Mean Platelet Volume 8.6; Microcytosis Slight; Monocytes # (A) 0.3 k/uL (0-1.0); Monocytes % (A) 3 %; Neutrophils # (A) 10.3 k/uL (1.3-7.7); Neutrophils % (A) 93 %; Platelet Count 334 k/uL (150-450); Poikilocytosis Slight; RBC 4.37 m/uL (3.80-5.40); RDW 22.7 % (11.5-15.5); WBC 11.1 k/uL (3.8-10.6)
[2023-08-20 09:55] LABS: African American GFR (CKD) 89 (>60 ml/min/1.73 sqM); Blood Urea Nitrogen 47 mg/dL (7-17); Calcium 9.3 mg/dL (8.4-10.2); Chloride 84 mmol/L (98-107); Glucose 351 mg/dL (74-99); Non-African American GFR(CKD) 77 (>60 ml/min/1.73 sqM); Potassium 4.1 mmol/L (3.5-5.1); Sodium 134 mmol/L (137-145)
[2023-08-20 10:04] LABS: Anion Gap 13 mmol/L
[2023-08-20 10:07] LABS: Carbon Dioxide 37 mmol/L (22-30)
[2023-08-20 11:46] LABS: Glucose,Whole Blood 437 mg/dL (70-110)
--- NOTE | 2023-08-20 14:03 | P.PN ---
Subjective Progress Note Date: 08/20/23 Principal diagnosis: Acute hypoxic and hypercapnic respiratory failure, multifactorial, secondary to acute diastolic congestive heart failure and acute exacerbation of COPD I am seeing this patient in consultation today 08/17/2023 in the emergency room for acute hypoxemic and hypercapnic respiratory failure. Patient is a 62-year-old white female with past medical history significant for oxygen dependent COPD, congestive heart failure, hypertension, dyslipidemia, type 2 diabetes mellitus, glaucoma, chronic low back pain, and chronic and ongoing tobacco dependence. She has had multiple recent hospital admissions this year for similar issues. Patient was actually just recently discharged on August 11 for similar issues. She was BiPAP dependent for several days. Apparently, while at [facility] for rehab, the patient became severely short of breath and hypoxic while up walking around. Patient is currently up sitting in bed, on 5 L/m nasal cannula, in no acute distress. She is alert and talkative. She is technically oriented, but a poor historian. She denies any complaints. Chest x- ray on arrival showed cardiomegaly with pulmonary vascular congestion. There are also some bibasilar infiltrates, possible atelectasis vs developing pneumonia. ABG done on arrival was consistent with hypercapnic respiratory failure. Patient does have history of severe oxygen dependent COPD and congestive heart failure. CBC on arrival showed some leukocytosis with a WBC count of 17.8, hemoglobin 10.2, hematocrit 34.5, platelets 384. BMP on arrival showed a sodium 142, potassium 4.7, chloride 96, serum bicarbonate 37, B1 43, creatinine 0.49, glucose 96. Lactic acid level was 1.1. Troponin 0.018. NT proBNP was elevated at 4070. Patient was started on Lasix 40 mg twice a day. Patient was also empirically started on azithromycin and ceftriaxone. Currently afebrile. Patient appears hemodynamically stable, is being admitted to the cardiac stepdown unit. Patient was reexamined today on 08/18/2023, patient was on Lasix drip for the last 24 hours, she had a significant amount of diuresis since admission. Patient was seen by cardiology and transitioned to Lasix 40 mg IV push twice a day patient is feeling much per today compared to how she felt when I saw her yesterday in the ER. She is now on 4 L nasal cannula with O2 sats of 94% she is hemodynamically stable, and does not seem to be in distress looking at her urine output from yesterday, patient had at least at least 4.5 L negative fluid balance. And clinically she is much improved. Reevaluated today on 08/19/2023, patient is doing better today, breathing a lot easier, continues to diurese, patient is now on Lasix 40 mg IV push every 12 hours. Her electrolytes are normal except for bicarb of 42 BUN of 55 creatinine 0.70 I will add Diamox for this patient. Blood sugars remain high in the 400 range almost. That is being addressed by the admitting physician/hospitalist chest x-ray yesterday showed significant improvement in her interstitial edema. Clinically the patient continues to do well Reevaluated today on 08/20/2023, patient continues to improve doing well with diuretics, continues to have negative fluid balance, patient is negative at least 2 L in the last 24 hours, and overall the patient is doing great. WBC count is 11.1 hemoglobin is 10.8 basic metabolic profile is normal bicarb is down to 37 UN is 47 creatinine 0.81 blood sugar is 351, chest x-ray today is basically showing no evidence of pulmonary edema and basically back to her baseline. Objective - Vital Signs Vital signs: Vital Signs Temp 98.1 F 08/20/23 12:45 Pulse 92 08/20/23 12:45 Resp 18 08/20/23 12:45 BP 128/86 08/20/23 12:45 Pulse Ox 96 08/20/23 12:45 FiO2 50 08/19/23 04:15 Intake & Output 08/19/23 08/20/23 08/20/23 18:59 06:59 18:59 Intake Total 1999 840 720 Output Total 1750 1950 1250 Balance 250 1110 -530 Intake: Intake, IV Titration 50 Amount cefTRIAXone 2 gm In 50 Sodium Chloride 0.9% 50 ml @ 100 mls/hr IVPB Q24H [facility] Rx#:[id number] Oral 1999 790 720 Output: Urine 1750 1950 1250 Other: Voiding Method External Catheter External Catheter - Exam Physical Exam: Revealed a 63-year-old female in no distress, on 2 L nasal cannula with O2 saturation 96% Head: Atraumatic, normocephalic HEENT:[Neck is supple.] [No neck masses.] [No thyromegaly.] [No JVD.] Chest: [Clear throughout no crackles or rhonchi or wheezes Cardiac Exam: [Normal S1 and S2, no S3 gallop, no murmur.] Abdomen: [Soft, nontender, no megaly, no rebound, no guarding, normal bowel sounds.] Extremities: [No clubbing, 2+ bipedal edema, no cyanosis. Neurological Exam: [No focal neurologic deficit.] Alert oriented 3 Psychiatric: Normal mood affect and normal mental status examination. Condition: No rashes - Labs CBC & Chem 7: 08/20/23 08:44 08/20/23 08:44 Labs: Abnormal Lab Results - Last 24 Hours (Table) 08/19/23 08/19/23 08/20/23 Range/Units 16:47 20:13 06:10 WBC (3.8-10.6) k/uL Hgb (11.4-16.0) gm/dL MCH (25.0-35.0) pg MCHC (31.0-37.0) g/dL RDW (11.5-15.5) % Neutrophils # (1.3-7.7) k/uL Lymphocytes # (1.0-4.8) k/uL Sodium (137-145) mmol/L Chloride (98-107) mmol/L Carbon Dioxide (22-30) mmol/L BUN (7-17) mg/dL Glucose (74-99) mg/dL POC Glucose (mg/dL) 457 H 418 H 168 H (70-110) mg/dL 08/20/23 08/20/23 08/20/23 Range/Units 08:44 08:44 11:43 WBC 11.1 H (3.8-10.6) k/uL Hgb 10.8 L (11.4-16.0) gm/dL MCH 24.7 L (25.0-35.0) pg MCHC 29.3 L (31.0-37.0) g/dL RDW 22.7 H (11.5-15.5) % Neutrophils # 10.3 H (1.3-7.7) k/uL Lymphocytes # 0.4 L (1.0-4.8) k/uL Sodium 134 L (137-145) mmol/L Chloride 84 L (98-107) mmol/L Carbon Dioxide 37 H (22-30) mmol/L BUN 47 H (7-17) mg/dL Glucose 351 H (74-99) mg/dL POC Glucose (mg/dL) 437 H (70-110) mg/dL Microbiology - Last 24 Hours (Table) 08/17/23 02:15 Blood Culture - Preliminary Blood 08/17/23 02:00 Blood Culture - Preliminary Blood Assessment and Plan Assessment: Impression: Acute hypoxic and hypercapnic respiratory failure, significantly improved in the last 2 days Acute exacerbation of diastolic congestive heart failure, responded quite well to aggressive diuresis Acute COPD exacerbation, significantly improved Frequent falls Acute metabolic encephalopathy, resolved Ongoing nicotine dependence Benign essential hypertension Type 2 diabetes without complications Obesity with BMI of 32.7 Recommendation: Continue oxygen and titrate accordingly Change Solu-Medrol to prednisone Continue Symbicort Continue diuretics including Lasix and Diamox Chest x-ray showed complete resolution of her pulmonary edema Change to oral antibiotics Consider discharge planning in the next 24 hours We will continue to follow Time with Patient: Less than 30
[2023-08-20] MEDS: FUROSEMIDE 40 MG TAB PO SCH (15:38)
[2023-08-20] MEDS: methylPREDNISolone 4 MG TAB TAPER PO SCH (15:38)
[2023-08-20 16:26] LABS: Glucose,Whole Blood 308 mg/dL (70-110)
--- NOTE | 2023-08-20 18:28 | P.PN ---
Subjective Progress Note Date: 08/20/23 * 62-year-old white female with past medical history significant for oxygen dependent COPD, congestive heart failure, hypertension, dyslipidemia, type 2 diabetes mellitus, glaucoma, chronic low back pain, and chronic and ongoing tobacco dependence who presented to the ER because of worsening shortness of b reath. Patient has multiple similar admissions in the past few months for shortness of breath. Patient was currently living in [facility] after being discharged there a week before. Patient apparently got short of breath on ambulation. Denied any chest pain. Denied any fever or chills. There was no complain of swelling of feet. Denies any recent fall. No complain of palpitation. No carotid orthopnea or PND. Because of this worsening shortness of breath, patient came to the ER * Initial lab work done in the ER showed WBC 17.8, hemoglobin 10.2, platelet count 384, sodium 142, potassium 4.7, BUN 42, creatinine 0.49 troponin 0.018, total protein 6 * EKG done in the ER showed heart rate 106, no ST segment elevation, no T-wave inversion seen * Chest x-ray done in the ER subsegmental perihilar and patchy to confluent bibasilar opacities noted. Differential includes asymmetric dependent edema versus bibasilar pneumonia * 08/20/2023 -- patient is seen and evaluated in room at bedside; continues to improve doing well with diuretics, continues to have negative fluid balance, patient is negative at least 2 L in the last 24 hours, and overall the patient is doing great. Vital signs are reviewed and remained stable Lab review shows WBC count is 11.1 hemoglobin is 10.8 basic metabolic profile is normal bicarb is down to 37 UN is 47 creatinine 0.81 blood sugar is 351 --chest x-ray today is basically showing no evidence of pulmonary edema and b asically back to her baseline. Blood glucose remains elevated above 300, we will increase Levemir from 25 units subcu daily at bedtime up to 30 units subcu daily at bedtime Pulmonary recommending to transition to oral prednisone and continue with current diuretic therapy with Lasix and Diamox -- Antibiotics have been transitioned to oral Possible discharge in next 24-48 hours Objective - Vital Signs Vital signs: Vital Signs Temp 99.1 F 08/20/23 08:35 Pulse 96 08/20/23 08:35 Resp 18 08/20/23 08:35 BP 144/84 08/20/23 08:35 Pulse Ox 93 L 08/20/23 08:35 FiO2 50 08/19/23 04:15 Intake & Output 08/19/23 08/20/23 08/20/23 18:59 06:59 18:59 Intake Total 1999 840 Output Total 1750 1950 Balance 250 -1110 Intake: Intake, IV Titration 50 Amount cefTRIAXone 2 gm In 50 Sodium Chloride 0.9% 50 ml @ 100 mls/hr IVPB Q24H [facility] Rx#:[id number] Oral 1999 790 Output: Urine 1750 1950 Other: Voiding Method External Catheter External Catheter - Exam GENERAL: The patient is alert and oriented x3, nasal cannula in place, 4 L ill appearance HEENT: Pupils are round and equally reacting to light. EOMI. CARDIOVASCULAR: S1 and S2 present. No murmurs, rubs, or gallops. Bilateral leg edema PULMONARY: Decreased breath sounds bilaterally, rhonchi audible ABDOMEN: Soft, nontender, nondistended, normoactive bowel sounds. No palpable organomegaly. MUSCULOSKELETAL: No joint swelling or deformity. EXTREMITIES: No cyanosis, clubbing, or pedal edema. NEUROLOGICAL: Gross neurological examination did not reveal any focal deficits. SKIN: Bruising noted - Labs CBC & Chem 7: 08/20/23 08:44 08/20/23 08:44 Labs: Abnormal Lab Results - Last 24 Hours (Table) 08/19/23 08/19/23 08/19/23 Range/Units 12:06 16:47 20:13 WBC (3.8-10.6) k/uL Hgb (11.4-16.0) gm/dL MCH (25.0-35.0) pg MCHC (31.0-37.0) g/dL RDW (11.5-15.5) % Neutrophils # (1.3-7.7) k/uL Lymphocytes # (1.0-4.8) k/uL Sodium (137-145) mmol/L Chloride (98-107) mmol/L Carbon Dioxide (22-30) mmol/L BUN (7-17) mg/dL Glucose (74-99) mg/dL POC Glucose (mg/dL) 310 H 457 H 418 H (70-110) mg/dL 10/08/20/23 08/20/23 Range/Units 06:10 08:44 08:44 WBC 11.1 H (3.8-10.6) k/uL Hgb 10.8 L (11.4-16.0) gm/dL MCH 24.7 L (25.0-35.0) pg MCHC 29.3 L (31.0-37.0) g/dL RDW 22.7 H (11.5-15.5) % Neutrophils # 10.3 H (1.3-7.7) k/uL Lymphocytes # 0.4 L (1.0-4.8) k/uL Sodium 134 L (137-145) mmol/L Chloride 84 L (98-107) mmol/L Carbon Dioxide 37 H (22-30) mmol/L BUN 47 H (7-17) mg/dL Glucose 351 H (74-99) mg/dL POC Glucose (mg/dL) 168 H (70-110) mg/dL Microbiology - Last 24 Hours (Table) 08/17/23 02:15 Blood Culture - Preliminary Blood 08/17/23 02:00 Blood Culture - Preliminary Blood Assessment and Plan Assessment: Acute on chronic hypoxic hypercapnic respiratory failure Acute on chronic exacerbation of congestive heart failure diastolic dysfunction Community-acquired pneumonia COPD exacerbation Hypertension Hyperlipidemia Diabetes mellitus * In regards to CHF exacerbation continue patient on diuretics, on Lasix continue to monitor intake and output cardiology following * In regards to COPD exacerbation, continue patient on Solu-Medrol, continue breathing treatments * In regards to multifocal pneumonia continue Rocephin and azithromycin * Regards to diabetes mellitus continue patient on Levemir and NovoLog monitor for hypoglycemia * CODE STATUS is full code
[2023-08-20] MEDS: ATORVASTATIN 80 MG TAB PO SCH (19:57)
[2023-08-20] MEDS: FENOFIBRATE 160 MG TAB PO SCH (19:57)
[2023-08-20] MEDS: HYDROcodone/APAP 5-325MG 1 EACH TAB PO PRN (19:57)
[2023-08-20] MEDS: CYCLOBENZAPRINE 10 MG TAB PO SCH (19:57)
[2023-08-20 20:20] LABS: Glucose,Whole Blood 371 mg/dL (70-110)
[2023-08-20] MEDS: INSULIN DETEMIR (LEVEMIR) 100 UNIT/ML SYR SQ SCH (21:45)
[2023-08-21 06:11] LABS: Glucose,Whole Blood 135 mg/dL (70-110)
[2023-08-21] MEDS: INSULIN ASPART (NovoLOG) 100 UNIT/ML VIAL SQ SCH ×4 (06:18→20:44)
[2023-08-21] MEDS: ALBUTEROL NEBULIZED 2.5 MG/3 ML INHALATION SCH ×4 (08:23→21:58)
[2023-08-21] MEDS: SYMBICORT 160-4.5 MCG INHALER INHALATION SCH ×2 (08:23→21:58)
[2023-08-21 08:46] LABS: Anisocytosis Moderate; Basophils % (A) 0 %; Eosinophils # (A) 0.1 k/uL (0-0.7); Eosinophils % (A) 0 %; HCT 37.5 % (34.0-46.0); HGB 10.9 gm/dL (11.4-16.0); Hypochromasia Marked; Lymphocytes # (A) 1.2 k/uL (1.0-4.8); Lymphocytes % (A) 10 %; MCH 24.5 pg (25.0-35.0); MCHC 29.1 g/dL (31.0-37.0); MCV 84.1 fL (80.0-100.0); Mean Platelet Volume 8.8; Microcytosis Slight; Monocytes # (A) 0.8 k/uL (0-1.0); Monocytes % (A) 7 %; Neutrophils # (A) 9.4 k/uL (1.3-7.7); Neutrophils % (A) 81 %; Platelet Count 274 k/uL (150-450); Poikilocytosis Slight; RBC 4.46 m/uL (3.80-5.40); RDW 22.3 % (11.5-15.5); WBC 11.6 k/uL (3.8-10.6)
[2023-08-21 08:58] LABS: African American GFR (CKD) 83 (>60 ml/min/1.73 sqM); Blood Urea Nitrogen 44 mg/dL (7-17); Calcium 9.2 mg/dL (8.4-10.2); Chloride 89 mmol/L (98-107); Glucose 238 mg/dL (74-99); Non-African American GFR(CKD) 72 (>60 ml/min/1.73 sqM); Potassium 3.9 mmol/L (3.5-5.1); Sodium 136 mmol/L (137-145)
[2023-08-21 09:04] LABS: Anion Gap 8 mmol/L
[2023-08-21] MEDS: methylPREDNISolone 4 MG TAB TAPER PO SCH (09:34)
[2023-08-21 09:39] LABS: Carbon Dioxide 39 mmol/L (22-30)
[2023-08-21] MEDS: PREGABALIN 75 MG CAP PO SCH ×2 (09:39→20:43)
[2023-08-21] MEDS: allopurinoL 100 MG TAB PO SCH (09:40)
[2023-08-21] MEDS: MAGNESIUM OXIDE 400 MG TAB PO SCH ×2 (09:40→17:31)
[2023-08-21] MEDS: FUROSEMIDE 40 MG TAB PO SCH ×2 (09:40→17:31)
[2023-08-21] MEDS: METOPROLOL TARTRATE 25 MG TAB PO SCH ×2 (09:40→17:31)
[2023-08-21] MEDS: acetaZOLAMIDE 250 MG TAB PO SCH ×2 (09:40→20:43)
[2023-08-21] MEDS: SPIRONOLACTONE 25 MG TAB PO SCH (09:40)
[2023-08-21] MEDS: HYDROcodone/APAP 5-325MG 1 EACH TAB PO PRN (09:41)
[2023-08-21 11:43] LABS: Glucose,Whole Blood 201 mg/dL (70-110)
--- NOTE | 2023-08-21 14:02 | P.PN ---
Subjective Progress Note Date: 08/21/23 Subjective: Patient still appears volume overloaded. Swelling is culprit as compared to yesterday. Responded well to diuretics. History of present illness: This is a 63 year old female with past medical history of COPD, diabetes, hypertension, hyperlipidemia, diastolic heart failure. We've been asked to evaluate the patient for heart failure. Patient came in for [facility] where she was found to be having shortness of breath. Patient is seen today in the emergency center. She has been seen by pulmonary medicine status post 1 dose of IV Lasix and started on Lasix drip. EKG sinus tachycardia at 106 bpm Chest x-ray: Subsegmental perihilar patchy 2 confluent bibasilar opacities noted differential includes asymmetrical dependent edema versus bibasilar pneumonia WBC 17.8, hemoglobin 10.2, platelet count 384. INR 1.1. Sodium 142, potassium 4.7, BUN 43 creatinine 0.49. Liver function tests are normal. Troponins negative 3. ProBNP 4070. Pro-calcitonin 0.15. Home cardiac medications: Atorvastatin 80 mg at bedtime, fenofibrate 160 mg at bedtime, Lasix 40 mg daily, magnesium oxide 400 mg twice daily, Lopressor 25 mg twice daily, Aldactone 25 mg daily Echocardiogram performed 05/11/2023 revealed preserved LV size and systolic function. Mild dilated right ventricle. Moderate tricuspid regurgitation. Review Of Systems: At the time of my evaluation: Constitutional: No fever, no chills. No weakness, fatigue or lethargy. EENT: No headache. No dizziness. Lungs: No shortness of breath, cough, no sputum production. No wheezing. Cardiovascular: No chest pain, no lower extremity edema. No palpitations. No paroxysmal nocturnal dyspnea. No orthopnea. No lightheadedness or dizziness. No syncopal episodes. Abdominal: No abdominal pain. No nausea, vomiting. No diarrhea. No constipation. No bloody or tarry stools. Genitourinary: No dysuria.. No urinary retention. Musculoskeletal: No myalgias. No muscle weakness, no frequent falls. No back pain. No neck pain. Integumentary: No wounds. No rash. No unusual bruising. Neurologic: No aphasia. No facial droop. No change in mentation. No head injury. No headache. Assessment: Acute on chronic hypoxic and hypercapnic respiratory failure COPD exacerbation Possible pneumonia Acute on chronic Heart failure exacerbation secondary to heart failure with preserved ejection fraction Right-sided heart failure Hypertension Dyslipidemia Diabetes Plan: Continue Lasix 40 mg IV twice a day. If you have function stays stable, we will make it 3 times a day tomorrow Continue atorvastatin, metoprolol 25 twice a day, Spironolactone 25 mg daily. Next step will be to increase her metoprolol if blood pressure and heart rate stays high Patient would benefit from addition of Jardiance when she is off steroids No need for repeating echocardiogram. Last echo from May shows a preserved LVEF with moderate TR, dilated RV. Patient has evidence of right-sided heart failure. Continue IV antibiotics for pneumonia and COPD management as per primary team Objective - Vital Signs Vital signs: Vital Signs Temp 98.1 F 08/21/23 12:50 Pulse 98 08/21/23 12:50 Resp 18 08/21/23 12:50 BP 114/66 08/21/23 12:50 Pulse Ox 91 L 08/21/23 12:50 FiO2 50 08/19/23 04:15 Intake & Output 08/20/23 08/21/23 08/21/23 18:59 06:59 18:59 Intake Total 960 590 480 Output Total 1950 500 650 Balance -990 90 -170 Intake: Intake, IV Titration 50 Amount cefTRIAXone 2 gm In 50 Sodium Chloride 0.9% 50 ml @ 100 mls/hr IVPB Q24H [facility] Rx#:[id number] Oral 960 540 480 Output: Urine 1950 500 650 Other: Voiding Method External Catheter # Voids 2 - Labs CBC & Chem 7: 08/21/23 08:22 08/21/23 08:22 Labs: Abnormal Lab Results - Last 24 Hours (Table) 08/20/23 08/20/23 08/21/23 Range/Units 16:24 20:18 06:09 WBC (3.8-10.6) k/uL Hgb (11.4-16.0) gm/dL MCH (25.0-35.0) pg MCHC (31.0-37.0) g/dL RDW (11.5-15.5) % Neutrophils # (1.3-7.7) k/uL Sodium (137-145) mmol/L Chloride (98-107) mmol/L Carbon Dioxide (22-30) mmol/L BUN (7-17) mg/dL Glucose (74-99) mg/dL POC Glucose (mg/dL) 308 H 371 H 135 H (70-110) mg/dL 08/21/23 08/21/23 08/21/23 Range/Units 08:22 08:22 11:41 WBC 11.6 H (3.8-10.6) k/uL Hgb 10.9 L (11.4-16.0) gm/dL MCH 24.5 L (25.0-35.0) pg MCHC 29.1 L (31.0-37.0) g/dL RDW 22.3 H (11.5-15.5) % Neutrophils # 9.4 H (1.3-7.7) k/uL Sodium 136 L (137-145) mmol/L Chloride 89 L (98-107) mmol/L Carbon Dioxide 39 H (22-30) mmol/L BUN 44 H (7-17) mg/dL Glucose 238 H (74-99) mg/dL POC Glucose (mg/dL) 201 H (70-110) mg/dL Microbiology - Last 24 Hours (Table) 08/17/23 02:15 Blood Culture - Preliminary Blood 08/17/23 02:00 Blood Culture - Preliminary Blood
--- NOTE | 2023-08-21 14:41 | P.PN ---
Subjective Progress Note Date: 08/21/23 Principal diagnosis: Acute hypoxic and hypercapnic respiratory failure, multifactorial, secondary to acute diastolic congestive heart failure and acute exacerbation of COPD I am seeing this patient in consultation today 08/17/2023 in the emergency room for acute hypoxemic and hypercapnic respiratory failure. Patient is a 62-year-old white female with past medical history significant for oxygen dependent COPD, congestive heart failure, hypertension, dyslipidemia, type 2 diabetes mellitus, glaucoma, chronic low back pain, and chronic and ongoing tobacco dependence. She has had multiple recent hospital admissions this year for similar issues. Patient was actually just recently discharged on August 11 for similar issues. She was BiPAP dependent for several days. Apparently, while at [facility] for rehab, the patient became severely short of breath and hypoxic while up walking around. Patient is currently up sitting in bed, on 5 L/m nasal cannula, in no acute distress. She is alert and talkative. She is technically oriented, but a poor historian. She denies any complaints. Chest x- ray on arrival showed cardiomegaly with pulmonary vascular congestion. There are also some bibasilar infiltrates, possible atelectasis vs developing pneumonia. ABG done on arrival was consistent with hypercapnic respiratory failure. Patient does have history of severe oxygen dependent COPD and congestive heart failure. CBC on arrival showed some leukocytosis with a WBC count of 17.8, hemoglobin 10.2, hematocrit 34.5, platelets 384. BMP on arrival showed a sodium 142, potassium 4.7, chloride 96, serum bicarbonate 37, B1 43, creatinine 0.49, glucose 96. Lactic acid level was 1.1. Troponin 0.018. NT proBNP was elevated at 4070. Patient was started on Lasix 40 mg twice a day. Patient was also empirically started on azithromycin and ceftriaxone. Currently afebrile. Patient appears hemodynamically stable, is being admitted to the cardiac stepdown unit. Patient was reexamined today on 08/18/2023, patient was on Lasix drip for the last 24 hours, she had a significant amount of diuresis since admission. Patient was seen by cardiology and transitioned to Lasix 40 mg IV push twice a day patient is feeling much per today compared to how she felt when I saw her yesterday in the ER. She is now on 4 L nasal cannula with O2 sats of 94% she is hemodynamically stable, and does not seem to be in distress looking at her urine output from yesterday, patient had at least at least 4.5 L negative fluid balance. And clinically she is much improved. Reevaluated today on 08/19/2023, patient is doing better today, breathing a lot easier, continues to diurese, patient is now on Lasix 40 mg IV push every 12 hours. Her electrolytes are normal except for bicarb of 42 BUN of 55 creatinine 0.70 I will add Diamox for this patient. Blood sugars remain high in the 400 range almost. That is being addressed by the admitting physician/hospitalist chest x-ray yesterday showed significant improvement in her interstitial edema. Clinically the patient continues to do well Reevaluated today on 08/20/2023, patient continues to improve doing well with diuretics, continues to have negative fluid balance, patient is negative at least 2 L in the last 24 hours, and overall the patient is doing great. WBC count is 11.1 hemoglobin is 10.8 basic metabolic profile is normal bicarb is down to 37 UN is 47 creatinine 0.81 blood sugar is 351, chest x-ray today is basically showing no evidence of pulmonary edema and basically back to her baseline. Reevaluated today on 08/21/2023, patient is doing much better today, breathing a lot easier, we are seeing the patient for acute on chronic hypoxic and hypercapnic respiratory failure, acute on chronic diastolic congestive heart failure, initially she was placed on Lasix drip/confusion and she remains on diuretics right now orally , she is now on 2 L nasal cannula with adequate O2 saturation patient already has home oxygen CBC is normal in length lites are normal renal profile is normal bicarb is 39. Objective - Vital Signs Vital signs: Vital Signs Temp 98.1 F 08/21/23 12:50 Pulse 98 08/21/23 12:50 Resp 18 08/21/23 12:50 BP 114/66 08/21/23 12:50 Pulse Ox 91 L 08/21/23 12:50 FiO2 50 08/19/23 04:15 Intake & Output 08/20/23 08/21/23 08/21/23 18:59 06:59 18:59 Intake Total 960 590 480 Output Total 1950 500 650 Balance -990 90 -170 Intake: Intake, IV Titration 50 Amount cefTRIAXone 2 gm In 50 Sodium Chloride 0.9% 50 ml @ 100 mls/hr IVPB Q24H [facility] Rx#:[id number] Oral 960 540 480 Output: Urine 1950 500 650 Other: Voiding Method External Catheter # Voids 2 - Exam Physical Exam: Revealed a 63-year-old female in no distress, on 2 L nasal cannula with O2 saturation 96% Head: Atraumatic, normocephalic HEENT:[Neck is supple.] [No neck masses.] [No thyromegaly.] [No JVD.] Chest: [Clear throughout no crackles or rhonchi or wheezes Cardiac Exam: [Normal S1 and S2, no S3 gallop, no murmur.] Abdomen: [Soft, nontender, no megaly, no rebound, no guarding, normal bowel sounds.] Extremities: [No clubbing, 1+ bipedal edema, no cyanosis. Neurological Exam: [No focal neurologic deficit.] Alert oriented 3 Psychiatric: Normal mood affect and normal mental status examination. Condition: No rashes - Labs CBC & Chem 7: 08/21/23 08:22 08/21/23 08:22 Labs: Abnormal Lab Results - Last 24 Hours (Table) 08/20/23 08/20/23 08/21/23 Range/Units 16:24 20:18 06:09 WBC (3.8-10.6) k/uL Hgb (11.4-16.0) gm/dL MCH (25.0-35.0) pg MCHC (31.0-37.0) g/dL RDW (11.5-15.5) % Neutrophils # (1.3-7.7) k/uL Sodium (137-145) mmol/L Chloride (98-107) mmol/L Carbon Dioxide (22-30) mmol/L BUN (7-17) mg/dL Glucose (74-99) mg/dL POC Glucose (mg/dL) 308 H 371 H 135 H (70-110) mg/dL 08/21/23 08/21/23 08/21/23 Range/Units 08:22 08:22 11:41 WBC 11.6 H (3.8-10.6) k/uL Hgb 10.9 L (11.4-16.0) gm/dL MCH 24.5 L (25.0-35.0) pg MCHC 29.1 L (31.0-37.0) g/dL RDW 22.3 H (11.5-15.5) % Neutrophils # 9.4 H (1.3-7.7) k/uL Sodium 136 L (137-145) mmol/L Chloride 89 L (98-107) mmol/L Carbon Dioxide 39 H (22-30) mmol/L BUN 44 H (7-17) mg/dL Glucose 238 H (74-99) mg/dL POC Glucose (mg/dL) 201 H (70-110) mg/dL Microbiology - Last 24 Hours (Table) 08/17/23 02:15 Blood Culture - Preliminary Blood 08/17/23 02:00 Blood Culture - Preliminary Blood Assessment and Plan Assessment: Impression: Acute hypoxic and hypercapnic respiratory failure, significantly improved compared to how she was on admission Acute exacerbation of diastolic congestive heart failure, responded quite well to aggressive diuresis Acute COPD exacerbation, significantly improved Frequent falls Acute metabolic encephalopathy, resolved Ongoing nicotine dependence Benign essential hypertension Type 2 diabetes without complications Obesity with BMI of 32.7 Recommendation: Continue oxygen and titrate accordingly continue prednisone Continue Symbicort Continue diuretics including Lasix and Diamox, and Aldactone Change to oral antibiotics Consider discharge planning , hopefully tomorrow We will continue to follow Time with Patient: Less than 30
--- NOTE | 2023-08-21 15:23 | P.PN ---
Subjective Progress Note Date: 08/21/23 * 62-year-old white female with past medical history significant for oxygen dependent COPD, congestive heart failure, hypertension, dyslipidemia, type 2 diabetes mellitus, glaucoma, chronic low back pain, and chronic and ongoing tobacco dependence who presented to the ER because of worsening shortness of b reath. Patient has multiple similar admissions in the past few months for shortness of breath. Patient was currently living in [facility] after being discharged there a week before. Patient apparently got short of breath on ambulation. Denied any chest pain. Denied any fever or chills. There was no complain of swelling of feet. Denies any recent fall. No complain of palpitation. No carotid orthopnea or PND. Because of this worsening shortness of breath, patient came to the ER * Initial lab work done in the ER showed WBC 17.8, hemoglobin 10.2, platelet count 384, sodium 142, potassium 4.7, BUN 42, creatinine 0.49 troponin 0.018, total protein 6 * EKG done in the ER showed heart rate 106, no ST segment elevation, no T-wave inversion seen * Chest x-ray done in the ER subsegmental perihilar and patchy to confluent bibasilar opacities noted. Differential includes asymmetric dependent edema versus bibasilar pneumonia * 08/20/2023 -- patient is seen and evaluated in room at bedside; continues to improve doing well with diuretics, continues to have negative fluid balance, patient is negative at least 2 L in the last 24 hours, and overall the patient is doing great. Vital signs are reviewed and remained stable Lab review shows WBC count is 11.1 hemoglobin is 10.8 basic metabolic profile is normal bicarb is down to 37 UN is 47 creatinine 0.81 blood sugar is 351 --chest x-ray today is basically showing no evidence of pulmonary edema and b asically back to her baseline. Blood glucose remains elevated above 300, we will increase Levemir from 25 units subcu daily at bedtime up to 30 units subcu daily at bedtime Pulmonary recommending to transition to oral prednisone and continue with current diuretic therapy with Lasix and Diamox -- Antibiotics have been transitioned to oral Possible discharge in next 24-48 hours 08/21/2023 Patient is seen and evaluated sitting up in bed; patient has full code stripped off; reports she is trying to get dressed; more confused this morning Vital sign review shows temperature of 98.1, pulse 98, respiration 18 and blood pressure of 114/66 with O2 saturation of 91% on 2 L WBC 11.6, hemoglobin 10.9, platelet count of 274, sodium 136, potassium 3.9, BUN/creatinine of 44/0.86, blood glucose somewhat improved from yesterday but remaining elevated -- Levemir increased to 30 units subcu daily at bedtime; we will continue same dose and add 5 units of NovoLog before each meal -- We will order stat ABG to rule out CO2 retention given worsening confusion -- Pulmonary on board and recommending to continue with current management with possible discharge in next 24-48 hours Objective - Vital Signs Vital signs: Vital Signs Temp 98.1 F 08/21/23 12:50 Pulse 98 08/21/23 12:50 Resp 18 08/21/23 12:50 BP 114/66 08/21/23 12:50 Pulse Ox 91 L 08/21/23 12:50 FiO2 50 08/19/23 04:15 Intake & Output 08/20/23 08/21/23 08/21/23 18:59 06:59 18:59 Intake Total 960 590 480 Output Total 1950 500 650 Balance -990 90 -170 Intake: Intake, IV Titration 50 Amount cefTRIAXone 2 gm In 50 Sodium Chloride 0.9% 50 ml @ 100 mls/hr IVPB Q24H [facility] Rx#:[id number] Oral 960 540 480 Output: Urine 1950 500 650 Other: Voiding Method External Catheter # Voids 2 - Exam GENERAL: The patient is alert and oriented x3, nasal cannula in place, 4 L ill appearance HEENT: Pupils are round and equally reacting to light. EOMI. CARDIOVASCULAR: S1 and S2 present. No murmurs, rubs, or gallops. Bilateral leg edema PULMONARY: Decreased breath sounds bilaterally, rhonchi audible ABDOMEN: Soft, nontender, nondistended, normoactive bowel sounds. No palpable organomegaly. MUSCULOSKELETAL: No joint swelling or deformity. EXTREMITIES: No cyanosis, clubbing, or pedal edema. NEUROLOGICAL: Gross neurological examination did not reveal any focal deficits. SKIN: Bruising noted - Labs CBC & Chem 7: 08/21/23 08:22 08/21/23 08:22 Labs: Abnormal Lab Results - Last 24 Hours (Table) 10/08/20/23 08/21/23 Range/Units 16:24 20:18 06:09 WBC (3.8-10.6) k/uL Hgb (11.4-16.0) gm/dL MCH (25.0-35.0) pg MCHC (31.0-37.0) g/dL RDW (11.5-15.5) % Neutrophils # (1.3-7.7) k/uL Sodium (137-145) mmol/L Chloride (98-107) mmol/L Carbon Dioxide (22-30) mmol/L BUN (7-17) mg/dL Glucose (74-99) mg/dL POC Glucose (mg/dL) 308 H 371 H 135 H (70-110) mg/dL 08/21/23 08/21/23 08/21/23 Range/Units 08:22 08:22 11:41 WBC 11.6 H (3.8-10.6) k/uL Hgb 10.9 L (11.4-16.0) gm/dL MCH 24.5 L (25.0-35.0) pg MCHC 29.1 L (31.0-37.0) g/dL RDW 22.3 H (11.5-15.5) % Neutrophils # 9.4 H (1.3-7.7) k/uL Sodium 136 L (137-145) mmol/L Chloride 89 L (98-107) mmol/L Carbon Dioxide 39 H (22-30) mmol/L BUN 44 H (7-17) mg/dL Glucose 238 H (74-99) mg/dL POC Glucose (mg/dL) 201 H (70-110) mg/dL Microbiology - Last 24 Hours (Table) 08/17/23 02:15 Blood Culture - Preliminary Blood 08/17/23 02:00 Blood Culture - Preliminary Blood Assessment and Plan Assessment: Acute on chronic hypoxic hypercapnic respiratory failure Acute on chronic exacerbation of congestive heart failure diastolic dysfunction Community-acquired pneumonia COPD exacerbation Hypertension Hyperlipidemia Diabetes mellitus * In regards to CHF exacerbation continue patient on diuretics, on Lasix continue to monitor intake and output cardiology following * In regards to COPD exacerbation, continue patient on Solu-Medrol, continue b reathing treatments * In regards to multifocal pneumonia continue Rocephin and azithromycin * Regards to diabetes mellitus continue patient on Levemir and NovoLog monitor for hypoglycemia * CODE STATUS is full code
[2023-08-21 17:00] LABS: Glucose,Whole Blood 377 mg/dL (70-110)
[2023-08-21 17:05] LABS: ABG Base Excess 10.2 mmol/L; ABG HCO3 36 mmol/L (21-25); ABG Oxygen Saturation 96.5 % (94-97); ABG PCO2 66 mmHg (35-45); ABG PH 7.35 (7.35-7.45); ABG PO2 89 mmHg (83-108); ABG TCO2 38 mmol/L (19-24); Allen Test Performed? Yes
[2023-08-21 20:33] LABS: Glucose,Whole Blood 363 mg/dL (70-110)
[2023-08-21] MEDS: CYCLOBENZAPRINE 10 MG TAB PO SCH (20:43)
[2023-08-21] MEDS: FENOFIBRATE 160 MG TAB PO SCH (20:43)
[2023-08-21] MEDS: ATORVASTATIN 80 MG TAB PO SCH (20:43)
[2023-08-21] MEDS: INSULIN DETEMIR (LEVEMIR) 100 UNIT/ML SYR SQ SCH (22:15)
[2023-08-22 04:51] LABS: Glucose,Whole Blood 63 mg/dL (70-110)
[2023-08-22 05:15] LABS: Glucose,Whole Blood 140 mg/dL (70-110)
[2023-08-22 06:03] LABS: Glucose,Whole Blood 99 mg/dL (70-110)
[2023-08-22 06:03] LABS: Glucose,Whole Blood 103 mg/dL (70-110)
[2023-08-22] MEDS: INSULIN ASPART (NovoLOG) 100 UNIT/ML VIAL SQ SCH ×5 (06:12→20:55)
[2023-08-22] MEDS: SYMBICORT 160-4.5 MCG INHALER INHALATION SCH ×2 (08:15→20:14)
[2023-08-22] MEDS: ALBUTEROL NEBULIZED 2.5 MG/3 ML INHALATION SCH ×4 (08:15→20:14)
[2023-08-22] MEDS: PREGABALIN 75 MG CAP PO SCH ×2 (09:18→20:55)
[2023-08-22] MEDS: FUROSEMIDE 40 MG TAB PO SCH ×2 (09:18→17:02)
[2023-08-22] MEDS: acetaZOLAMIDE 250 MG TAB PO SCH ×2 (09:18→20:55)
[2023-08-22] MEDS: SPIRONOLACTONE 25 MG TAB PO SCH (09:19)
[2023-08-22] MEDS: METOPROLOL TARTRATE 25 MG TAB PO SCH ×2 (09:19→17:02)
[2023-08-22] MEDS: allopurinoL 100 MG TAB PO SCH (09:19)
[2023-08-22] MEDS: HYDROcodone/APAP 5-325MG 1 EACH TAB PO PRN (09:19)
[2023-08-22] MEDS: MAGNESIUM OXIDE 400 MG TAB PO SCH ×2 (09:19→17:02)
[2023-08-22] MEDS: methylPREDNISolone 4 MG TAB TAPER PO SCH (09:20)
[2023-08-22 10:48] LABS: Anisocytosis Moderate; Basophils % (A) 0 %; Eosinophils # (A) 0.1 k/uL (0-0.7); Eosinophils % (A) 0 %; HCT 36.5 % (34.0-46.0); HGB 10.7 gm/dL (11.4-16.0); Hypochromasia Marked; Lymphocytes % (A) 8 %; MCH 24.6 pg (25.0-35.0); MCHC 29.3 g/dL (31.0-37.0); MCV 83.9 fL (80.0-100.0); Mean Platelet Volume 8.7; Microcytosis Slight; Monocytes # (A) 0.6 k/uL (0-1.0); Monocytes % (A) 4 %; Neutrophils # (A) 11.9 k/uL (1.3-7.7); Neutrophils % (A) 87 %; Platelet Count 240 k/uL (150-450); Poikilocytosis Slight; RBC 4.35 m/uL (3.80-5.40); RDW 22.5 % (11.5-15.5); WBC 13.7 k/uL (3.8-10.6)
[2023-08-22 11:03] LABS: African American GFR (CKD) 84 (>60 ml/min/1.73 sqM); Blood Urea Nitrogen 46 mg/dL (7-17); Calcium 8.5 mg/dL (8.4-10.2); Chloride 89 mmol/L (98-107); Glucose 338 mg/dL (74-99); Non-African American GFR(CKD) 73 (>60 ml/min/1.73 sqM); Potassium 3.6 mmol/L (3.5-5.1); Sodium 136 mmol/L (137-145)
[2023-08-22 11:09] LABS: Anion Gap 9 mmol/L
[2023-08-22 11:13] LABS: Carbon Dioxide 38 mmol/L (22-30)
[2023-08-22 11:48] LABS: Glucose,Whole Blood 556 mg/dL (70-110)
[2023-08-22 11:48] LABS: Glucose,Whole Blood 545 mg/dL (70-110)
--- NOTE | 2023-08-22 13:56 | P.PN ---
Subjective HISTORY OF PRESENT ILLNESS: This is a 63-year-old female who was admitted to the hospital secondary to CHF and COPD. Patient examined this morning. Patient is sitting on the side of the bed. Patient denies chest pain or pressure. She denies shortness of breath. She has been transitioned to oral diuretics. Vital signs are stable. PHYSICAL EXAM: VITAL SIGNS: Reviewed. GENERAL: Well-developed in no acute distress. NECK: Supple. No JVD or thyromegaly LUNGS: Respirations even and unlabored. Lungs diminished to auscultation bilaterally. HEART: Regular rate and rhythm. S1 and S2 heard. EXTREMITIES: Normal range of motion. No clubbing or cyanosis. Peripheral pulses intact. No lower extremity edema ASSESSMENT: Shortness of breath Acute on chronic heart failure with preserved ejection fraction Acute on chronic hypoxic and hypercapnic respiratory failure Acute COPD exacerbation Possible pneumonia Hypertension Hyperlipidemia Diabetes PLAN: Continue current cardiac medications Add Farxiga 10mg daily Patient is currently stable from a cardiac perspective Discharge per medicine Nurse practitioner note has been reviewed by physician. Signing provider agrees with the documented findings, assessment, and plan of care. Objective - Vital Signs Vital signs: Vital Signs Temp 98.4 F 08/22/23 07:50 Pulse 76 08/22/23 11:27 Resp 21 08/22/23 08:00 BP 135/92 08/22/23 07:50 Pulse Ox 98 08/22/23 07:50 FiO2 35 08/22/23 08:00 Intake & Output 08/21/23 08/22/23 08/22/23 18:59 06:59 18:59 Intake Total 1200 590 Output Total 650 1350 Balance 550 -1350 590 Intake: Oral 1200 590 Output: Urine 650 1350 Other: Voiding Method External Catheter External Catheter # Voids 1 # Bowel Movements 1 - Labs CBC & Chem 7: 08/22/23 09:51 08/22/23 09:51 Labs: Abnormal Lab Results - Last 24 Hours (Table) 08/21/23 08/21/23 08/21/23 Range/Units 16:53 16:58 20:31 WBC (3.8-10.6) k/uL Hgb (11.4-16.0) gm/dL MCH (25.0-35.0) pg MCHC (31.0-37.0) g/dL RDW (11.5-15.5) % Neutrophils # (1.3-7.7) k/uL ABG pCO2 66 H (35-45) mmHg ABG HCO3 36 H (21-25) mmol/L ABG Total CO2 38 H (19-24) mmol/L Sodium (137-145) mmol/L Chloride (98-107) mmol/L Carbon Dioxide (22-30) mmol/L BUN (7-17) mg/dL Glucose (74-99) mg/dL POC Glucose (mg/dL) 377 H 363 H (70-110) mg/dL 08/22/23 08/22/23 08/22/23 Range/Units 04:50 05:13 09:51 WBC 13.7 H (3.8-10.6) k/uL Hgb 10.7 L (11.4-16.0) gm/dL MCH 24.6 L (25.0-35.0) pg MCHC 29.3 L (31.0-37.0) g/dL RDW 22.5 H (11.5-15.5) % Neutrophils # 11.9 H (1.3-7.7) k/uL ABG pCO2 (35-45) mmHg ABG HCO3 (21-25) mmol/L ABG Total CO2 (19-24) mmol/L Sodium (137-145) mmol/L Chloride (98-107) mmol/L Carbon Dioxide (22-30) mmol/L BUN (7-17) mg/dL Glucose (74-99) mg/dL POC Glucose (mg/dL) 63 L 140 H (70-110) mg/dL 08/22/23 08/22/23 08/22/23 Range/Units 09:51 11:45 11:47 WBC (3.8-10.6) k/uL Hgb (11.4-16.0) gm/dL MCH (25.0-35.0) pg MCHC (31.0-37.0) g/dL RDW (11.5-15.5) % Neutrophils # (1.3-7.7) k/uL ABG pCO2 (35-45) mmHg ABG HCO3 (21-25) mmol/L ABG Total CO2 (19-24) mmol/L Sodium 136 L (137-145) mmol/L Chloride 89 L (98-107) mmol/L Carbon Dioxide 38 H (22-30) mmol/L BUN 46 H (7-17) mg/dL Glucose 338 H (74-99) mg/dL POC Glucose (mg/dL) 545 H 556 H (70-110) mg/dL Microbiology - Last 24 Hours (Table) 08/17/23 02:15 Blood Culture - Final Blood 08/17/23 02:00 Blood Culture - Final Blood
--- NOTE | 2023-08-22 14:49 | P.PN ---
Subjective Progress Note Date: 08/22/23 Principal diagnosis: Shortness of breath. I am seeing this patient in consultation today 08/17/2023 in the emergency room for acute hypoxemic and hypercapnic respiratory failure. Patient is a 62-year-old white female with past medical history significant for oxygen dependent COPD, congestive heart failure, hypertension, dyslipidemia, type 2 diabetes mellitus, glaucoma, chronic low back pain, and chronic and ongoing tobacco dependence. She has had multiple recent hospital admissions this year for similar issues. Patient was actually just recently discharged on August 11 for similar issues. She was BiPAP dependent for several days. Apparently, while at [facility] for rehab, the patient became severely short of breath and hypoxic while up walking around. Patient is currently up sitting in bed, on 5 L/m nasal cannula, in no acute distress. She is alert and talkative. She is technically oriented, but a poor historian. She denies any complaints. Chest x- ray on arrival showed cardiomegaly with pulmonary vascular congestion. There are also some bibasilar infiltrates, possible atelectasis vs developing pneumonia. ABG done on arrival was consistent with hypercapnic respiratory failure. Patient does have history of severe oxygen dependent COPD and congesti ve heart failure. CBC on arrival showed some leukocytosis with a WBC count of 17.8, hemoglobin 10.2, hematocrit 34.5, platelets 384. BMP on arrival showed a sodium 142, potassium 4.7, chloride 96, serum bicarbonate 37, B1 43, creatinine 0.49, glucose 96. Lactic acid level was 1.1. Troponin 0.018. NT proBNP was elevated at 4070. Patient was started on Lasix 40 mg twice a day. Patient was also empirically started on azithromycin and ceftriaxone. Currently afebrile. Patient appears hemodynamically stable, is being admitted to the cardiac stepdown unit. Patient was reexamined today on 08/18/2023, patient was on Lasix drip for the last 24 hours, she had a significant amount of diuresis since admission. Patient was seen by cardiology and transitioned to Lasix 40 mg IV push twice a day patient is feeling much per today compared to how she felt when I saw her yesterday in the ER. She is now on 4 L nasal cannula with O2 sats of 94% she is hemodynamically stable, and does not seem to be in distress looking at her urine output from yesterday, patient had at least at least 4.5 L negative fluid balance. And clinically she is much improved. Reevaluated today on 08/19/2023, patient is doing better today, breathing a lot easier, continues to diurese, patient is now on Lasix 40 mg IV push every 12 hours. Her electrolytes are normal except for bicarb of 42 BUN of 55 creatinine 0.70 I will add Diamox for this patient. Blood sugars remain high in the 400 range almost. That is being addressed by the admitting physician/hospitalist chest x-ray yesterday showed significant improvement in her interstitial edema. Clinically the patient continues to do well Reevaluated today on 08/20/2023, patient continues to improve doing well with diuretics, continues to have negative fluid balance, patient is negative at least 2 L in the last 24 hours, and overall the patient is doing great. WBC count is 11.1 hemoglobin is 10.8 basic metabolic profile is normal bicarb is down to 37 UN is 47 creatinine 0.81 blood sugar is 351, chest x-ray today is basically showing no evidence of pulmonary edema and basically back to her baseline. Reevaluated today on 08/21/2023, patient is doing much better today, breathing a lot easier, we are seeing the patient for acute on chronic hypoxic and hypercapnic respiratory failure, acute on chronic diastolic congestive heart failure, initially she was placed on Lasix drip/confusion and she remains on diuretics right now orally , she is now on 2 L nasal cannula with adequate O2 saturation patient already has home oxygen CBC is normal in length lites are normal renal profile is normal bicarb is 39. Progress note dated 08/22/2023. The patient is seen today in room 367. The patient is sitting at the bedside. She is currently on oxygen, at 4 L by nasal cannula. The patient didn't use BiPAP, with settings of 16/6, and 35%. She's not receiving any IV fluids. She's feeling much better, and is much more awake and alert. White count 13.7, hemoglobin 10.7, hematocrit 36.5, with a platelet count of 240,000. Sodium 136, potassium 3.6, chlorides 89, CO2 38, BUN 46, creatinine 0.84. Objective - Vital Signs Vital signs: Vital Signs Temp 98.4 F 08/22/23 07:50 Pulse 76 08/22/23 11:27 Resp 21 08/22/23 08:00 BP 135/92 08/22/23 07:50 Pulse Ox 98 08/22/23 07:50 FiO2 35 08/22/23 08:00 Intake & Output 08/21/23 08/22/23 08/22/23 18:59 06:59 18:59 Intake Total 1200 590 Output Total 650 1350 Balance 550 -1350 590 Intake: Oral 1200 590 Output: Urine 650 1350 Other: Voiding Method External Catheter External Catheter # Voids 1 # Bowel Movements 1 - Exam No acute distress, oriented 3. No respiratory distress. Currently on 4 L. HEENT examination is grossly unremarkable. Mucous membranes are moist. No oral lesions. Neck supple. Full range of motion. No adenopathy thyromegaly or neck vein distention. Cardiovascular examination reveals regular rhythm rate. S1-S2 normal. No S3 or S4. No discernible murmur noted. Heart rate 76 bpm. Lungs reveal diminished bilateral breath sounds. Mild scattered rhonchi. No wheezes or crackles. Breath sounds are equal bilaterally but diminished her out. Saturations are in the low 90s. Abdomen soft bowel sounds are heard. No masses or tenderness. Extremities are intact. No cyanosis clubbing or edema. Skin is without rash or lesion. Neurologic examination is brief but nonfocal. - Labs CBC & Chem 7: 08/22/23 09:51 08/22/23 09:51 Labs: Abnormal Lab Results - Last 24 Hours (Table) 08/21/23 08/21/23 08/21/23 Range/Units 16:53 16:58 20:31 WBC (3.8-10.6) k/uL Hgb (11.4-16.0) gm/dL MCH (25.0-35.0) pg MCHC (31.0-37.0) g/dL RDW (11.5-15.5) % Neutrophils # (1.3-7.7) k/uL ABG pCO2 66 H (35-45) mmHg ABG HCO3 36 H (21-25) mmol/L ABG Total CO2 38 H (19-24) mmol/L Sodium (137-145) mmol/L Chloride (98-107) mmol/L Carbon Dioxide (22-30) mmol/L BUN (7-17) mg/dL Glucose (74-99) mg/dL POC Glucose (mg/dL) 377 H 363 H (70-110) mg/dL 08/22/23 08/22/23 08/22/23 Range/Units 04:50 05:13 09:51 WBC 13.7 H (3.8-10.6) k/uL Hgb 10.7 L (11.4-16.0) gm/dL MCH 24.6 L (25.0-35.0) pg MCHC 29.3 L (31.0-37.0) g/dL RDW 22.5 H (11.5-15.5) % Neutrophils # 11.9 H (1.3-7.7) k/uL ABG pCO2 (35-45) mmHg ABG HCO3 (21-25) mmol/L ABG Total CO2 (19-24) mmol/L Sodium (137-145) mmol/L Chloride (98-107) mmol/L Carbon Dioxide (22-30) mmol/L BUN (7-17) mg/dL Glucose (74-99) mg/dL POC Glucose (mg/dL) 63 L 140 H (70-110) mg/dL 08/22/23 08/22/23 08/22/23 Range/Units 09:51 11:45 11:47 WBC (3.8-10.6) k/uL Hgb (11.4-16.0) gm/dL MCH (25.0-35.0) pg MCHC (31.0-37.0) g/dL RDW (11.5-15.5) % Neutrophils # (1.3-7.7) k/uL ABG pCO2 (35-45) mmHg ABG HCO3 (21-25) mmol/L ABG Total CO2 (19-24) mmol/L Sodium 136 L (137-145) mmol/L Chloride 89 L (98-107) mmol/L Carbon Dioxide 38 H (22-30) mmol/L BUN 46 H (7-17) mg/dL Glucose 338 H (74-99) mg/dL POC Glucose (mg/dL) 545 H 556 H (70-110) mg/dL Microbiology - Last 24 Hours (Table) 08/17/23 02:15 Blood Culture - Final Blood 08/17/23 02:00 Blood Culture - Final Blood Assessment and Plan Assessment: Acute hypoxemic and hypercapnic respiratory failure, resolved. Acute exacerbation of diastolic CHF. Acute COPD exacerbation. Frequent falls. Acute metabolic encephalopathy, resolved. Ongoing nicotine dependence. Benign essential hypertension. Type 2 diabetes mellitus. Obesity. Plan: Plan dated 08/22/2023. Patient appears to be doing much better. Today she was sitting at the bedside, on 4 L. She didn't use BiPAP, with settings of 16/6, and 35%. He is not receiving any IV fluids. Labs, x-rays, and medications are reviewed. The patient's overall prognosis remains guarded. We will continue to follow the patient, and make recommendations along the way. Time with Patient: Less than 30
--- NOTE | 2023-08-22 15:01 | P.DS ---
Providers Date of admission: 08/17/23 02:01 Attending physician: Lauren Rios Consults: 08/17/23 01:58 Consult Physician Routine Consulting Provider: Travis Veras Consult Reason/Comments: chf Do you want consulting provider notified?: Yes 08/17/23 01:59 Consult Physician Routine Consulting Provider: Subha Esquivel Consult Reason/Comments: copd Do you want consulting provider notified?: Yes Primary care physician: [facility] Course: Final Diagnosis Acute on chronic hypoxic hypercapnic respiratory failure on 4L home oxygen Acute on chronic exacerbation of congestive heart failure diastolic dysfunction Acute COPD exacerbation pneumonia ruled out Altered mental status due to acute metabolic encephalopathy from hypoxia and hypercapnia resolved Hypertension Hyperlipidemia Diabetes mellitus type 2 with hyperglycemia exacerbated by steroid use Ongoing nicotine dependence Obesity Leukocytosis Full Code Discharge Disposition Patient is stable for discharge back to subacute rehab. Patient has been weaned back down to home oxygen. Will continue on lasix 40 mg BID and also diamox 250 mg BID. Patient will complete oral methylprednisolone taper. Discharged on slight increase dose of lantus. Recommend to follow up with cardiology and pulmonary in the office. Hospital Course 62-year-old white female with past medical history significant for oxygen dependent COPD, congestive heart failure, hypertension, dyslipidemia, type 2 diabetes mellitus, glaucoma, chronic low back pain, and chronic and ongoing tobacco dependence who presented to the ER because of worsening shortness of breath. Patient has multiple similar admissions in the past few months for shortness of breath was discharged 6 days prior to the [facility] for rehab. Because of this worsening shortness of breath, patient came to the ER. Initial lab work done in the ER showed WBC 17.8, hemoglobin 10.2, platelet count 384, sodium 142, potassium 4.7, BUN 42, creatinine 0.49 troponin 0.018, total protein 6. EKG done in the ER showed heart rate 106, no ST segment elevation, no T-wave inversion seen. Chest x-ray done in the ER subsegmental perihilar and patchy to confluent bibasilar opacities noted. Differential includes asymmetric dependent edema versus bibasilar pneumonia. Patient was admitted to the hospital with consult to cardiology and pulmonary service. Was given lasix gtt which has been since weaned back to oral lasix with increase to 40 mg BID. Patient is also completing steroid taper. CO2 is down to 38 from 42. Patient is currently sitting up at the bedside with present. She is tearful regarding diet and high blood sugar. Patient does not want to wear the bipap which she has only been using as needed. Patient will need to see pulmonary in the office on discharge for a sleep study. Patient denies chest pain, denies shortness of breath at rest. Her lungs are clear today. She is not wheezing. She is alert x 3. Temp 97.8, heart rate 91, blood pressure 139/90, 98% on 4L of oxygen. Please see medication reconciliation for a list of current medication. Thank you for allowing us to participate in the care of this patient. The impression and plan of care has been dictated by Marla Lopez, Nurse Practitioner as directed. Dr. Elena MD I have performed a history and physical examination and medical decision making of this patient, discussed the same with the dictator, and agree with the dictators assessment and plan as written, documented as a scribe. Based on total visit time, I have performed more than 50% of this visit. Patient Condition at Discharge: Fair Plan - Discharge Summary Discharge Rx Participant: Yes New Discharge Prescriptions: New Potassium Chloride ER [K-Dur 20] 20 meq PO DAILY tab Insulin Glargine,Hum.rec.anlog [Lantus Solostar Pen] 30 units SQ HS #1 each Furosemide [Lasix] 40 mg PO BID@0900,1600 #0 tab acetaZOLAMIDE [Diamox] 250 mg PO BID tab Dapagliflozin Propanediol [Farxiga] 10 mg PO DAILY tab methylPREDNISolone Dose Pack [Medrol Dose Pack] 16 mg PO DAILY tab Continue Cyclobenzaprine [Flexeril] 10 mg PO HS Omeprazole [PriLOSEC] 20 mg PO DAILY Fenofibrate 160 mg PO HS allopurinoL [Allopurinol] 100 mg PO DAILY Glimepiride [Amaryl] 8 mg PO DAILY rOPINIRole HCL [Requip] 0.25 mg PO HS Atorvastatin [Lipitor] 80 mg PO HS Ergocalciferol (Vitamin D2) [Drisdol (50,000 Iu)] 1,250 mcg PO MO levETIRAcetam [Keppra] 1,500 mg PO BID Budesonide-Formot 160-4.5 Mcg [Symbicort 160-4.5 Mcg Inhaler] 2 puff INHALATION RT-BID 30 Days #1 each Albuterol Inhaler [Ventolin Hfa Inhaler] 2 puff INHALATION RT-Q6H PRN PRN Reason: Shortness Of Breath Or Wheezing Na Phos,M-B/Na Phos,Di-Ba [Fleet Adult] 133 ml RECTAL DAILY PRN PRN Reason: Constipation Magnesium Hydroxide [Milk of Magnesia Concentrate] 7,200 mg PO DAILY PRN PRN Reason: Constipation INSULIN ASPART (NovoLOG) [NovoLOG (formulary)] See Protocol SQ ACHS Pregabalin [Lyrica] 150 mg PO BID #4 cap Magnesium Oxide [Magox 400] 400 mg PO BID@0800,1700 metFORMIN HCL [Glucophage] 1,000 mg PO BID Nicotine 21Mg/24Hr Patch [Habitrol] 1 patch TRANSDERM DAILY #4 patch Spironolactone [Aldactone] 25 mg PO DAILY #30 tab Ipratropium-Albuterol Nebulize [Duoneb 0.5 mg-3 mg/3 ml Soln] 3 ml INHALATION RT-Q4H each Metoprolol Tartrate [Lopressor] 25 mg PO BID@0800,1700 bisacodyL [Dulcolax] 10 mg RECTAL DAILY PRN PRN Reason: Constipation HYDROcodone/APAP 5-325MG [[place] 5-325] 1 tab PO BID PRN #4 tab PRN Reason: Pain Discontinued Insulin Detemir [Levemir Flexpen] 25 units SQ HS #1 each Empagliflozin [Jardiance] 25 mg PO DAILY Furosemide [Lasix] 40 mg PO DAILY #60 tab predniSONE See Taper PO DIRECTED Discharge Medication List Cyclobenzaprine [Flexeril] 10 mg PO HS 07/11/14 [History] Omeprazole [PriLOSEC] 20 mg PO DAILY 08/05/14 [History] Fenofibrate 160 mg PO HS 05/27/16 [History] allopurinoL [Allopurinol] 100 mg PO DAILY 05/27/16 [History] Glimepiride [Amaryl] 8 mg PO DAILY 06/28/17 [History] rOPINIRole HCL [Requip] 0.25 mg PO HS 06/02/18 [History] Atorvastatin [Lipitor] 80 mg PO HS 01/21/22 [History] Ergocalciferol (Vitamin D2) [Drisdol (50,000 Iu)] 1,250 mcg PO MO 01/21/22 [History] Magnesium Oxide [Magox 400] 400 mg PO BID@0800,1700 01/21/22 [History] metFORMIN HCL [Glucophage] 1,000 mg PO BID 01/21/22 [History] levETIRAcetam [Keppra] 1,500 mg PO BID 04/08/23 [History] Nicotine 21Mg/24Hr Patch [Habitrol] 1 patch TRANSDERM DAILY #4 patch 04/18/23 [Rx] Budesonide-Formot 160-4.5 Mcg [Symbicort 160-4.5 Mcg Inhaler] 2 puff INHALATION RT-BID 30 Days #1 each 05/13/23 [Rx] Spironolactone [Aldactone] 25 mg PO DAILY #30 tab 06/24/23 [Rx] Albuterol Inhaler [Ventolin Hfa Inhaler] 2 puff INHALATION RT-Q6H PRN 08/03/23 [History] Ipratropium-Albuterol Nebulize [Duoneb 0.5 mg-3 mg/3 ml Soln] 3 ml INHALATION RT-Q4H each 08/10/23 [Rx] INSULIN ASPART (NovoLOG) [NovoLOG (formulary)] See Protocol SQ ACHS 08/17/23 [History] Magnesium Hydroxide [Milk of Magnesia Concentrate] 7,200 mg PO DAILY PRN 08/17/23 [History] Metoprolol Tartrate [Lopressor] 25 mg PO BID@0800,1700 08/17/23 [History] Na Phos,M-B/Na Phos,Di-Ba [Fleet Adult] 133 ml RECTAL DAILY PRN 08/17/23 [History] bisacodyL [Dulcolax] 10 mg RECTAL DAILY PRN 08/17/23 [History] Dapagliflozin Propanediol [Farxiga] 10 mg PO DAILY tab 08/22/23 [Rx] Furosemide [Lasix] 40 mg PO BID@0900,1600 #0 tab 08/22/23 [Rx] HYDROcodone/APAP 5-325MG [[place] 5-325] 1 tab PO BID PRN #4 tab 08/22/23 [Rx] Insulin Glargine,Hum.rec.anlog [Lantus Solostar Pen] 30 units SQ HS #1 each 08/22/23 [Rx] Potassium Chloride ER [K-Dur 20] 20 meq PO DAILY tab 08/22/23 [Rx] Pregabalin [Lyrica] 150 mg PO BID #4 cap 08/22/23 [Rx] acetaZOLAMIDE [Diamox] 250 mg PO BID tab 08/22/23 [Rx] methylPREDNISolone Dose Pack [Medrol Dose Pack] 16 mg PO DAILY tab 08/22/23 [Rx] Follow up Appointment(s)/Referral(s): Vickey Henriquez MD [Medical Doctor] - 2 Weeks Shun Simmons DO [STAFF PHYSICIAN] - 1-2 days Nader Patel DO [Doctor of Osteopathic Medicine] - 1 Week Chaz Araujo DO [Primary Care Provider] - 1-2 Days Ambulatory/Diagnostic Orders: Basic Metabolic Panel [LAB.AMB] Time Frame: 3 Days, Location: None Selected Complete Blood Count w/diff [LAB.AMB] Time Frame: 3 Days, Location: None Selected Patient Instructions/Handouts: COPD (Chronic Obstructive Pulmonary Disease) (DC), Heart Failure (DC) Activity/Diet/Wound Care/Special Instructions: Return to [facility] Discharge Disposition: TRANSFER TO SNF/ECF
[2023-08-22 16:51] LABS: Glucose,Whole Blood >600 mg/dL (70-110)
[2023-08-22 16:54] LABS: Glucose,Whole Blood >600 mg/dL (70-110)
[2023-08-22] MEDS: DAPAGLIFLOZIN PROPANEDIOL 10 MG TABLET PO SCH (17:02)
[2023-08-22 17:44] LABS: African American GFR (CKD) 86 (>60 ml/min/1.73 sqM); Anion Gap 6 mmol/L; Blood Urea Nitrogen 48 mg/dL (7-17); Calcium 8.5 mg/dL (8.4-10.2); Carbon Dioxide 39 mmol/L (22-30); Chloride 90 mmol/L (98-107); Non-African American GFR(CKD) 75 (>60 ml/min/1.73 sqM); Potassium 4.5 mmol/L (3.5-5.1); Sodium 135 mmol/L (137-145)
[2023-08-22 17:57] LABS: Glucose 602 mg/dL (74-99)
[2023-08-22 19:53] LABS: Glucose,Whole Blood 464 mg/dL (70-110)
[2023-08-22] MEDS: ATORVASTATIN 80 MG TAB PO SCH (20:55)
[2023-08-22] MEDS: FENOFIBRATE 160 MG TAB PO SCH (20:55)
[2023-08-22] MEDS: CYCLOBENZAPRINE 10 MG TAB PO SCH (20:55)
[2023-08-22] MEDS ORDERED: INSULIN DETEMIR (LEVEMIR) 100 UNIT/ML SYR SQ SCH ×2 (21:00)
[2023-08-23 06:25] LABS: Glucose,Whole Blood 258 mg/dL (70-110)
[2023-08-23] MEDS: INSULIN ASPART (NovoLOG) 100 UNIT/ML VIAL SQ SCH ×7 (06:43→22:19)
[2023-08-23] MEDS ORDERED: INSULIN DETEMIR (LEVEMIR) 100 UNIT/ML SYR SQ SCH (07:00)
[2023-08-23] MEDS: SYMBICORT 160-4.5 MCG INHALER INHALATION SCH ×2 (07:56→21:13)
[2023-08-23] MEDS: ALBUTEROL NEBULIZED 2.5 MG/3 ML INHALATION SCH ×4 (07:56→21:13)
[2023-08-23 07:59] LABS: Anisocytosis Moderate; Basophils % (A) 0 %; Eosinophils # (A) 0.1 k/uL (0-0.7); Eosinophils % (A) 1 %; HCT 38.9 % (34.0-46.0); HGB 11.2 gm/dL (11.4-16.0); Hypochromasia Marked; Lymphocytes # (A) 1.3 k/uL (1.0-4.8); Lymphocytes % (A) 10 %; MCH 24.5 pg (25.0-35.0); MCHC 28.9 g/dL (31.0-37.0); MCV 84.8 fL (80.0-100.0); Microcytosis Slight; Monocytes # (A) 0.5 k/uL (0-1.0); Monocytes % (A) 4 %; Neutrophils # (A) 10.7 k/uL (1.3-7.7); Neutrophils % (A) 84 %; Platelet Count 228 k/uL (150-450); Poikilocytosis Slight; RBC 4.59 m/uL (3.80-5.40); RDW 22.5 % (11.5-15.5); WBC 12.7 k/uL (3.8-10.6)
[2023-08-23 08:20] LABS: African American GFR (CKD) >90 (>60 ml/min/1.73 sqM); Anion Gap 8 mmol/L; Blood Urea Nitrogen 40 mg/dL (7-17); Calcium 8.8 mg/dL (8.4-10.2); Chloride 93 mmol/L (98-107); Glucose 266 mg/dL (74-99); Non-African American GFR(CKD) 89 (>60 ml/min/1.73 sqM); Potassium 3.6 mmol/L (3.5-5.1); Sodium 141 mmol/L (137-145)
[2023-08-23 08:29] LABS: Carbon Dioxide 40 mmol/L (22-30)
[2023-08-23] MEDS: INSULIN DETEMIR (LEVEMIR) 100 UNIT/ML SYR SQ SCH ×2 (09:04→21:59)
[2023-08-23] MEDS: allopurinoL 100 MG TAB PO SCH (09:04)
[2023-08-23] MEDS: PREGABALIN 75 MG CAP PO SCH ×2 (09:04→21:58)
[2023-08-23] MEDS: SPIRONOLACTONE 25 MG TAB PO SCH (09:04)
[2023-08-23] MEDS: DAPAGLIFLOZIN PROPANEDIOL 10 MG TABLET PO SCH (09:05)
[2023-08-23] MEDS: methylPREDNISolone 4 MG TAB TAPER PO SCH (09:05)
[2023-08-23] MEDS: POTASSIUM CHLORIDE ER 20 MEQ TAB.ER PO SCH (09:05)
[2023-08-23] MEDS: acetaZOLAMIDE 250 MG TAB PO SCH ×2 (09:05→21:58)
[2023-08-23] MEDS: FUROSEMIDE 40 MG TAB PO SCH ×2 (09:05→21:58)
[2023-08-23] MEDS: MAGNESIUM OXIDE 400 MG TAB PO SCH ×2 (09:05→21:58)
[2023-08-23] MEDS: METOPROLOL TARTRATE 25 MG TAB PO SCH ×2 (09:07→21:58)
[2023-08-23 11:39] LABS: Glucose,Whole Blood 304 mg/dL (70-110)
--- NOTE | 2023-08-23 13:21 | P.PN ---
Subjective Progress Note Date: 08/23/23 Principal diagnosis: Shortness of breath. I am seeing this patient in consultation today 08/17/2023 in the emergency room for acute hypoxemic and hypercapnic respiratory failure. Patient is a 62-year-old white female with past medical history significant for oxygen dependent COPD, congestive heart failure, hypertension, dyslipidemia, type 2 diabetes mellitus, glaucoma, chronic low back pain, and chronic and ongoing tobacco dependence. She has had multiple recent hospital admissions this year for similar issues. Patient was actually just recently discharged on August 11 for similar issues. She was BiPAP dependent for several days. Apparently, while at [facility] for rehab, the patient became severely short of breath and hypoxic while up walking around. Patient is currently up sitting in bed, on 5 L/m nasal cannula, in no acute distress. She is alert and talkative. She is technically oriented, but a poor historian. She denies any complaints. Chest x- ray on arrival showed cardiomegaly with pulmonary vascular congestion. There are also some bibasilar infiltrates, possible atelectasis vs developing pneumonia. ABG done on arrival was consistent with hypercapnic respiratory failure. Patient does have history of severe oxygen dependent COPD and congesti ve heart failure. CBC on arrival showed some leukocytosis with a WBC count of 17.8, hemoglobin 10.2, hematocrit 34.5, platelets 384. BMP on arrival showed a sodium 142, potassium 4.7, chloride 96, serum bicarbonate 37, B1 43, creatinine 0.49, glucose 96. Lactic acid level was 1.1. Troponin 0.018. NT proBNP was elevated at 4070. Patient was started on Lasix 40 mg twice a day. Patient was also empirically started on azithromycin and ceftriaxone. Currently afebrile. Patient appears hemodynamically stable, is being admitted to the cardiac stepdown unit. Patient was reexamined today on 08/18/2023, patient was on Lasix drip for the last 24 hours, she had a significant amount of diuresis since admission. Patient was seen by cardiology and transitioned to Lasix 40 mg IV push twice a day patient is feeling much per today compared to how she felt when I saw her yesterday in the ER. She is now on 4 L nasal cannula with O2 sats of 94% she is hemodynamically stable, and does not seem to be in distress looking at her urine output from yesterday, patient had at least at least 4.5 L negative fluid balance. And clinically she is much improved. Reevaluated today on 08/19/2023, patient is doing better today, breathing a lot easier, continues to diurese, patient is now on Lasix 40 mg IV push every 12 hours. Her electrolytes are normal except for bicarb of 42 BUN of 55 creatinine 0.70 I will add Diamox for this patient. Blood sugars remain high in the 400 range almost. That is being addressed by the admitting physician/hospitalist chest x-ray yesterday showed significant improvement in her interstitial edema. Clinically the patient continues to do well Reevaluated today on 08/20/2023, patient continues to improve doing well with diuretics, continues to have negative fluid balance, patient is negative at least 2 L in the last 24 hours, and overall the patient is doing great. WBC count is 11.1 hemoglobin is 10.8 basic metabolic profile is normal bicarb is down to 37 UN is 47 creatinine 0.81 blood sugar is 351, chest x-ray today is basically showing no evidence of pulmonary edema and basically back to her baseline. Reevaluated today on 08/21/2023, patient is doing much better today, breathing a lot easier, we are seeing the patient for acute on chronic hypoxic and hypercapnic respiratory failure, acute on chronic diastolic congestive heart failure, initially she was placed on Lasix drip/confusion and she remains on diuretics right now orally , she is now on 2 L nasal cannula with adequate O2 saturation patient already has home oxygen CBC is normal in length lites are normal renal profile is normal bicarb is 39. Progress note dated 08/22/2023. The patient is seen today in room 367. The patient is sitting at the bedside. She is currently on oxygen, at 4 L by nasal cannula. The patient didn't use BiPAP, with settings of 16/6, and 35%. She's not receiving any IV fluids. She's feeling much better, and is much more awake and alert. White count 13.7, hemoglobin 10.7, hematocrit 36.5, with a platelet count of 240,000. Sodium 136, potassium 3.6, chlorides 89, CO2 38, BUN 46, creatinine 0.84. Progress note dated 08/23/2023. The patient is seen sitting in a chair next to her bed, in room 367. Currently, the patient is on oxygen, at 3 L. No IV fluids. She apparently has a BiPAP at the bedside, but doesn't use it on a regular basis. Her settings of 16/6, and 35%. The plan is for her to be discharged to [facility]. Labs today include a white count 12.7, hemoglobin 11.2, hematocrit 38.9, and a normal platelet count. Sodium 141, potassium 3.6, chloride 93, CO2 40 BUN 40 and creatinine 0.72. Her calcium is 8.8. Blood cultures are negative. Objective - Vital Signs Vital signs: Vital Signs Temp 98.5 F 08/23/23 11:00 Pulse 92 08/23/23 11:34 Resp 18 08/23/23 11:00 BP 102/62 08/23/23 11:00 Pulse Ox 96 08/23/23 11:00 FiO2 35 08/22/23 08:00 Intake & Output 08/22/23 08/23/23 08/23/23 18:59 06:59 18:59 Intake Total 590 240 Output Total 1100 1100 400 Balance -510 -1100 -160 Intake: Oral 590 240 Output: Urine 1100 1100 400 Other: Voiding Method External Catheter External Catheter External Catheter # Voids 1 # Bowel Movements 1 1 1 - Exam No acute distress, oriented 3. No respiratory distress. Currently on 3 L. HEENT examination is grossly unremarkable. Mucous membranes are moist. No oral lesions. Neck supple. Full range of motion. No adenopathy thyromegaly or neck vein distention. Cardiovascular examination reveals regular rhythm rate. S1-S2 normal. No S3 or S4. No discernible murmur noted. Heart rate 90 bpm. Lungs reveal diminished bilateral breath sounds. Mild scattered rhonchi. No wheezes or crackles. Breath sounds are equal bilaterally but diminished her out. Saturations are 96% on 3 L. Abdomen soft bowel sounds are heard. No masses or tenderness. Extremities are intact. No cyanosis clubbing or edema. Skin is without rash or lesion. Neurologic examination is brief but nonfocal. - Labs CBC & Chem 7: 08/23/23 07:39 08/23/23 07:39 Labs: Abnormal Lab Results - Last 24 Hours (Table) 08/22/23 08/22/23 08/22/23 Range/Units 16:48 16:51 17:15 WBC (3.8-10.6) k/uL Hgb (11.4-16.0) gm/dL MCH (25.0-35.0) pg MCHC (31.0-37.0) g/dL RDW (11.5-15.5) % Neutrophils # (1.3-7.7) k/uL Sodium 135 L (137-145) mmol/L Chloride 90 L (98-107) mmol/L Carbon Dioxide 39 H (22-30) mmol/L BUN 48 H (7-17) mg/dL Glucose 602 H* (74-99) mg/dL POC Glucose (mg/dL) >600 H >600 H (70-110) mg/dL 08/22/23 08/23/23 08/23/23 Range/Units 19:51 06:22 07:39 WBC 12.7 H (3.8-10.6) k/uL Hgb 11.2 L (11.4-16.0) gm/dL MCH 24.5 L (25.0-35.0) pg MCHC 28.9 L (31.0-37.0) g/dL RDW 22.5 H (11.5-15.5) % Neutrophils # 10.7 H (1.3-7.7) k/uL Sodium (137-145) mmol/L Chloride (98-107) mmol/L Carbon Dioxide (22-30) mmol/L BUN (7-17) mg/dL Glucose (74-99) mg/dL POC Glucose (mg/dL) 464 H 258 H (70-110) mg/dL 08/23/23 08/23/23 Range/Units 07:39 11:37 WBC (3.8-10.6) k/uL Hgb (11.4-16.0) gm/dL MCH (25.0-35.0) pg MCHC (31.0-37.0) g/dL RDW (11.5-15.5) % Neutrophils # (1.3-7.7) k/uL Sodium (137-145) mmol/L Chloride 93 L (98-107) mmol/L Carbon Dioxide 40 H (22-30) mmol/L BUN 40 H (7-17) mg/dL Glucose 266 H (74-99) mg/dL POC Glucose (mg/dL) 304 H (70-110) mg/dL Microbiology - Last 24 Hours (Table) 08/17/23 02:15 Blood Culture - Final Blood 08/17/23 02:00 Blood Culture - Final Blood Assessment and Plan Assessment: Acute hypoxemic and hypercapnic respiratory failure, resolved. Acute exacerbation of diastolic CHF. Acute COPD exacerbation. Frequent falls. Acute metabolic encephalopathy, resolved. Ongoing nicotine dependence. Benign essential hypertension. Type 2 diabetes mellitus. Obesity. Plan: Plan dated 08/22/2023. Patient appears to be doing much better. Today she was sitting at the bedside, on 4 L. She didn't use BiPAP, with settings of 16/6, and 35%. He is not receiving any IV fluids. Labs, x-rays, and medications are reviewed. The patient's overall prognosis remains guarded. We will continue to follow the patient, and make recommendations along the way. Plan dated 08/23/2023. The patient appears to be doing reasonably well. The patient sitting at the bedside. She's been weaned down to 3 L. She denies any worsening or more pro gressive or severe shortness of breath, cough, wheezing, chest tightness, or phlegm production. Labs, x-rays, medications are reviewed. The plan is for this patient to be discharged to one of the local nursing homes, I believe [facility]. We will continue to follow make recommendations along the way. The patient is scheduled to see me in the office. Time with Patient: Less than 30
[2023-08-23 15:26] LABS: Glucose,Whole Blood 267 mg/dL (70-110)
[2023-08-23 15:42] LABS: Glucose,Whole Blood 207 mg/dL (70-110)
[2023-08-23 16:44] LABS: Glucose,Whole Blood 129 mg/dL (70-110)
[2023-08-23 20:06] LABS: Glucose,Whole Blood 106 mg/dL (70-110)
[2023-08-23] MEDS ORDERED: QUEtiapine 25 MG TAB PO SCH (21:45)
[2023-08-23] MEDS: NICOTINE 21MG/24HR PATCH TRANSDERM SCH (21:56)
[2023-08-23] MEDS: FENOFIBRATE 160 MG TAB PO SCH (21:58)
[2023-08-23] MEDS: ATORVASTATIN 80 MG TAB PO SCH (21:58)
[2023-08-23] MEDS: CYCLOBENZAPRINE 10 MG TAB PO SCH (21:58)
[2023-08-23] MEDS: HYDROcodone/APAP 5-325MG 1 EACH TAB PO PRN (22:54)
[2023-08-24 04:17] LABS: Glucose,Whole Blood 223 mg/dL (70-110)
[2023-08-24] MEDS: INSULIN ASPART (NovoLOG) 100 UNIT/ML VIAL SQ SCH ×4 (04:21→12:21)
[2023-08-24 06:10] LABS: Glucose,Whole Blood 304 mg/dL (70-110)
[2023-08-24] MEDS: ALBUTEROL NEBULIZED 2.5 MG/3 ML INHALATION SCH ×2 (07:48→11:16)
[2023-08-24] MEDS: SYMBICORT 160-4.5 MCG INHALER INHALATION SCH (07:49)
--- NOTE | 2023-08-24 08:53 | P.PN ---
Subjective Progress Note Date: 08/23/23 62-year-old white female with past medical history significant for oxygen dependent COPD, congestive heart failure, hypertension, dyslipidemia, type 2 diabetes mellitus, glaucoma, chronic low back pain, and chronic and ongoing tobacco dependence who presented to the ER because of worsening shortness of scar ath. Patient has multiple similar admissions in the past few months for shortness of breath was [facility]. Because of this worsening shortness of breath, patient came to the ER. Initial lab work done in the ER showed WBC 17.8, hemoglobin 10.2, platelet count 384, sodium 142, potassium 4.7, BUN 42, creatinine 0.49 troponin 0.018, total protein 6. EKG done in the ER showed heart rate 106, no ST segment elevation, no T-wave inversion seen. Chest x-ray done in the ER subsegmental perihilar and patchy to confluent bibasilar opacities noted. Differential includes asymmetric dependent edema versus bibasilar pneumonia. Patient was admitted to the hospital with consult to cardiology and pulmonary service. Was given lasix gtt which has been since weaned back to oral lasix with increase to 40 mg BID. Patient is also completing steroid taper. CO2 is down to 38 from 42. Patient is currently sitting up at the bedside with present. She is tearful regarding diet and high blood sugar. Patient does not want to wear the bipap which she has only been using as needed. Patient will need to see pulmonary in the office on discharge for a sleep study. Patient denies chest pain, denies shortness of breath at rest. Her lungs are clear today. She is not wheezing. She is alert x 3. Temp 97.8, heart rate 91, blood pressure 139/90, 98% on 4L of oxygen. 08/23/2023 Patient continues to be alert x 3 on nasal cannula does get hypoxic when she removes with sats dropping to mid 80s patient also be altered when she is hypoxic has been wearing BiPAP prn and HS. Pulmonary following. Patient has been cleared to go to subacute rehab however she continues to remove oxygen and having periods of confusion. Labs today showing white count 12.7, sodium 141, potassium 3.6, BUN 40, creatinine 0.72, blood sugar in the 200s. D/C was held to the acute confusion from hypoxia. Review of Systems Constitutional: Denied any fatigue denied any fever. Cardio vascular: denied any chest pain, palpitations Gastrointestinal: denied any nausea, vomiting, diarrhea Pulmonary: Exertional shortness of breath, cough Neurologic denied any new focal deficits All inpatient medications were reviewed and appropriate changes in these medications as dictated in the interval history and assessment and plan. PHYSICAL EXAMINATION: GENERAL: The patient is alert and oriented x3, not in any acute distress. Well developed, well nourished. HEENT: Pupils are round and equally reacting to light. EOMI. No scleral icterus. No conjunctival pallor. Normocephalic, atraumatic. No pharyngeal erythema. No thyromegaly. CARDIOVASCULAR: S1 and S2 present. No murmurs, rubs, or gallops. PULMONARY: Chest is clear to auscultation, no wheezing or crackles. ABDOMEN: Soft, nontender, nondistended, normoactive bowel sounds. No palpable organomegaly. MUSCULOSKELETAL: No joint swelling or deformity. EXTREMITIES: No cyanosis, clubbing, or pedal edema. NEUROLOGICAL: Gross neurological examination did not reveal any focal deficits. Weakness generalized. SKIN: No rashes. Assessment Acute on chronic hypoxic hypercapnic respiratory failure on 4L home oxygen Acute on chronic exacerbation of congestive heart failure diastolic dysfunction Acute COPD exacerbation pneumonia ruled out Altered mental status due to acute metabolic encephalopathy from hypoxia and hypercapnia resolved Hypertension Hyperlipidemia Diabetes mellitus type 2 with hyperglycemia exacerbated by steroid use Ongoing nicotine dependence Obesity Leukocytosis Full Code Plan Patient has been transitioned to oral lasix and oral prednisone taper Continues on oxygen via nasal cannula with adequate saturations. Pending D/C to rehab patient needs to keep the oxygen on at all times to avoid hypoxic episodes The impression and plan of care has been dictated by Marla Lopez, Nurse Practitioner as directed. Dr. Elena MD I have performed a history and physical examination and medical decision making of this patient, discussed the same with the dictator, and agree with the dictators assessment and plan as written, documented as a scribe. Based on total visit time, I have performed more than 50% of this visit. Objective - Vital Signs Vital signs: Vital Signs Temp 97.0 F L 08/24/23 04:00 Pulse 80 08/24/23 07:59 Resp 20 08/24/23 04:00 BP 97/60 08/24/23 04:00 Pulse Ox 96 08/24/23 04:00 FiO2 35 08/24/23 00:00 Intake & Output 08/23/23 08/24/23 08/24/23 18:59 06:59 18:59 Intake Total 480 180 Output Total 1050 700 Balance -570 -520 Intake: Oral 480 180 Output: Urine 1050 700 Other: Voiding Method External Catheter External Catheter # Bowel Movements 1 - Labs CBC & Chem 7: 08/23/23 07:39 08/23/23 07:39 Labs: Abnormal Lab Results - Last 24 Hours (Table) 08/23/23 08/23/23 08/23/23 Range/Units 11:37 14:55 15:40 POC Glucose (mg/dL) 304 H 267 H 207 H (70-110) mg/dL 08/23/23 08/24/23 08/24/23 Range/Units 16:42 04:15 06:08 POC Glucose (mg/dL) 129 H 223 H 304 H (70-110) mg/dL
[2023-08-24] MEDS: SPIRONOLACTONE 25 MG TAB PO SCH (09:17)
[2023-08-24] MEDS: methylPREDNISolone 4 MG TAB TAPER PO SCH (09:17)
[2023-08-24] MEDS: NICOTINE 21MG/24HR PATCH TRANSDERM SCH (09:17)
[2023-08-24] MEDS: acetaZOLAMIDE 250 MG TAB PO SCH (09:17)
[2023-08-24] MEDS: MAGNESIUM OXIDE 400 MG TAB PO SCH (09:17)
[2023-08-24] MEDS: DAPAGLIFLOZIN PROPANEDIOL 10 MG TABLET PO SCH (09:17)
[2023-08-24] MEDS: METOPROLOL TARTRATE 25 MG TAB PO SCH (09:17)
[2023-08-24] MEDS: POTASSIUM CHLORIDE ER 20 MEQ TAB.ER PO SCH (09:17)
[2023-08-24] MEDS: FUROSEMIDE 40 MG TAB PO SCH (09:17)
[2023-08-24] MEDS: allopurinoL 100 MG TAB PO SCH (09:17)
[2023-08-24] MEDS: INSULIN DETEMIR (LEVEMIR) 100 UNIT/ML SYR SQ SCH (09:18)
[2023-08-24] MEDS: PREGABALIN 75 MG CAP PO SCH (09:18)
--- NOTE | 2023-08-24 10:20 | P.DS ---
Providers Date of admission: 08/17/23 02:01 Attending physician: Lauren Rios Consults: 08/17/23 01:59 Consult Physician Routine Consulting Provider: Subha Esquivel Consult Reason/Comments: copd Do you want consulting provider notified?: Yes [facility] Course: Final Diagnosis Acute on chronic hypoxic hypercapnic respiratory failure on 4L home oxygen Acute on chronic exacerbation of congestive heart failure diastolic dysfunction Acute COPD exacerbation pneumonia ruled out Altered mental status due to acute metabolic encephalopathy from hypoxia and hypercapnia resolved Hypertension Hyperlipidemia Diabetes mellitus type 2 with hyperglycemia exacerbated by steroid use Ongoing nicotine dependence Obesity Leukocytosis Full Code Discharge Disposition Patient is stable for discharge back to subacute rehab. Patient has been weaned back down to home oxygen 4L of oxygen. Patient needs to keep the oxygen on 30/05 and this was discussed with the patient in extent patient is in agreeance and understanding she needs to keep her oxygen on. Doesn't want the BiPAP it is only as needed. Will continue on lasix 40 mg BID and also diamox 250 mg BID. Patient will complete oral methylprednisolone taper. Discharged on slight increase dose of lantus. Recommend to follow up with cardiology and pulmonary in the office. 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 Patient has multiple similar admissions in the past few months for shortness of breath was [facility] to [facility]. Because of this worsening shortness of breath, patient came to the ER. Initial lab work done in the ER showed WBC 17.8, hemoglobin 10.2, platelet count 384, sodium 142, potassium 4.7, BUN 42, creatinine 0.49 troponin 0.018, total protein 6. EKG done in the ER showed heart rate 106, no ST segment elevation, no T-wave inversion seen. Chest x-ray done in the ER subsegmental perihilar and patchy to confluent bibasilar opacities noted. Differential includes asymmetric dependent edema versus bibasilar pneumonia. Patient was admitted to the hospital with consult to cardiology and pulmonary service. Was given lasix gtt which has been since weaned back to oral lasix with increase to 40 mg BID. Patient is also completing steroid taper. CO2 is down to 38 from 42. Patient is currently sitting up at the bedside with present. She is tearful regarding diet and high blood sugar. Patient does not want to wear the bipap which she has only been using as needed. Patient will need to see pulmonary in the office on discharge for a sleep study. Patient denies chest pain, denies shortness of breath at rest. Her lungs are clear today. She is not wheezing. She is alert x 3. Temp 97.8, heart rate 91, blood pressure 139/90, 98% on 4L of oxygen. Can continue same BiPAP settings on return to [facility]. Needs to see pulmonary for outpt sleep study. Does not need the BiPAP on discharge from [facility]. Wound care to the superficial ulceration to the right zepeda can use Medihoney and optifoam change daily. Follow up with wound care either [facility] wound care or wound care at the halfway. Medically patient can discharge today. No shortness of breath. Lungs are clear. Blood sugar is improved today and long acting insulin has been increased. Recommend repeat labs in 2 to 3 days. Please see medication reconciliation for a list of current medication. Thank you for allowing us to participate in the care of this patient. The impression and plan of care has been dictated by Marla Lopez, Nurse Practitioner as directed. Dr. Elena MD I have performed a history and physical examination and medical decision making of this patient, discussed the same with the dictator, and agree with the dictators assessment and plan as written, documented as a scribe. Based on total visit time, I have performed more than 50% of this visit. Patient Condition at Discharge: Fair Plan - Discharge Summary Discharge Rx Participant: Yes New Discharge Prescriptions: New Potassium Chloride ER [K-Dur 20] 20 meq PO DAILY tab Furosemide [Lasix] 40 mg PO BID@0900,1600 #0 tab INSULIN ASPART (NovoLOG) [NovoLOG (formulary)] 4 unit SQ AC-TID each acetaZOLAMIDE [Diamox] 250 mg PO BID tab Dapagliflozin Propanediol [Farxiga] 10 mg PO DAILY tab methylPREDNISolone Dose Pack [Medrol Dose Pack] 16 mg PO DAILY tab Insulin Glargine,Hum.rec.anlog [Lantus Solostar Pen] 45 units SQ HS #1 each Continue Cyclobenzaprine [Flexeril] 10 mg PO HS Omeprazole [PriLOSEC] 20 mg PO DAILY Fenofibrate 160 mg PO HS allopurinoL [Allopurinol] 100 mg PO DAILY Glimepiride [Amaryl] 8 mg PO DAILY rOPINIRole HCL [Requip] 0.25 mg PO HS Atorvastatin [Lipitor] 80 mg PO HS Ergocalciferol (Vitamin D2) [Drisdol (50,000 Iu)] 1,250 mcg PO MO levETIRAcetam [Keppra] 1,500 mg PO BID Budesonide-Formot 160-4.5 Mcg [Symbicort 160-4.5 Mcg Inhaler] 2 puff INHALATION RT-BID 30 Days #1 each Albuterol Inhaler [Ventolin Hfa Inhaler] 2 puff INHALATION RT-Q6H PRN PRN Reason: Shortness Of Breath Or Wheezing Na Phos,M-B/Na Phos,Di-Ba [Fleet Adult] 133 ml RECTAL DAILY PRN PRN Reason: Constipation Magnesium Hydroxide [Milk of Magnesia Concentrate] 7,200 mg PO DAILY PRN PRN Reason: Constipation INSULIN ASPART (NovoLOG) [NovoLOG (formulary)] See Protocol SQ ACHS Pregabalin [Lyrica] 150 mg PO BID #4 cap Magnesium Oxide [Magox 400] 400 mg PO BID@0800,1700 metFORMIN HCL [Glucophage] 1,000 mg PO BID Nicotine 21Mg/24Hr Patch [Habitrol] 1 patch TRANSDERM DAILY #4 patch Spironolactone [Aldactone] 25 mg PO DAILY #30 tab Ipratropium-Albuterol Nebulize [Duoneb 0.5 mg-3 mg/3 ml Soln] 3 ml INHALATION RT-Q4H each Metoprolol Tartrate [Lopressor] 25 mg PO BID@0800,1700 bisacodyL [Dulcolax] 10 mg RECTAL DAILY PRN PRN Reason: Constipation HYDROcodone/APAP 5-325MG [[place] 5-325] 1 tab PO BID PRN #4 tab PRN Reason: Pain Discontinued Insulin Detemir [Levemir Flexpen] 25 units SQ HS #1 each Empagliflozin [Jardiance] 25 mg PO DAILY Furosemide [Lasix] 40 mg PO DAILY #60 tab predniSONE See Taper PO DIRECTED Discharge Medication List Cyclobenzaprine [Flexeril] 10 mg PO HS 07/11/14 [History] Omeprazole [PriLOSEC] 20 mg PO DAILY 08/05/14 [History] Fenofibrate 160 mg PO HS 05/27/16 [History] allopurinoL [Allopurinol] 100 mg PO DAILY 05/27/16 [History] Glimepiride [Amaryl] 8 mg PO DAILY 06/28/17 [History] rOPINIRole HCL [Requip] 0.25 mg PO HS 06/02/18 [History] Atorvastatin [Lipitor] 80 mg PO HS 01/21/22 [History] Ergocalciferol (Vitamin D2) [Drisdol (50,000 Iu)] 1,250 mcg PO MO 01/21/22 [History] Magnesium Oxide [Magox 400] 400 mg PO BID@0800,1700 01/21/22 [History] metFORMIN HCL [Glucophage] 1,000 mg PO BID 01/21/22 [History] levETIRAcetam [Keppra] 1,500 mg PO BID 04/08/23 [History] Nicotine 21Mg/24Hr Patch [Habitrol] 1 patch TRANSDERM DAILY #4 patch 04/18/23 [Rx] Budesonide-Formot 160-4.5 Mcg [Symbicort 160-4.5 Mcg Inhaler] 2 puff INHALATION RT-BID 30 Days #1 each 05/13/23 [Rx] Spironolactone [Aldactone] 25 mg PO DAILY #30 tab 06/24/23 [Rx] Albuterol Inhaler [Ventolin Hfa Inhaler] 2 puff INHALATION RT-Q6H PRN 08/03/23 [History] Ipratropium-Albuterol Nebulize [Duoneb 0.5 mg-3 mg/3 ml Soln] 3 ml INHALATION RT-Q4H each 08/10/23 [Rx] INSULIN ASPART (NovoLOG) [NovoLOG (formulary)] See Protocol SQ ACHS 08/17/23 [History] Magnesium Hydroxide [Milk of Magnesia Concentrate] 7,200 mg PO DAILY PRN 08/17/23 [History] Metoprolol Tartrate [Lopressor] 25 mg PO BID@0800,1700 08/17/23 [History] Na Phos,M-B/Na Phos,Di-Ba [Fleet Adult] 133 ml RECTAL DAILY PRN 08/17/23 [History] bisacodyL [Dulcolax] 10 mg RECTAL DAILY PRN 08/17/23 [History] Dapagliflozin Propanediol [Farxiga] 10 mg PO DAILY tab 08/22/23 [Rx] Furosemide [Lasix] 40 mg PO BID@0900,1600 #0 tab 08/22/23 [Rx] HYDROcodone/APAP 5-325MG [[place] 5-325] 1 tab PO BID PRN #4 tab 08/22/23 [Rx] Potassium Chloride ER [K-Dur 20] 20 meq PO DAILY tab 08/22/23 [Rx] Pregabalin [Lyrica] 150 mg PO BID #4 cap 08/22/23 [Rx] acetaZOLAMIDE [Diamox] 250 mg PO BID tab 08/22/23 [Rx] methylPREDNISolone Dose Pack [Medrol Dose Pack] 16 mg PO DAILY tab 08/22/23 [Rx] INSULIN ASPART (NovoLOG) [NovoLOG (formulary)] 4 unit SQ AC-TID each 08/23/23 [Rx] Insulin Glargine,Hum.rec.anlog [Lantus Solostar Pen] 45 units SQ HS #1 each 08/23/23 [Rx] Follow up Appointment(s)/Referral(s): Vickey Henriquez MD [Medical Doctor] - 2 Weeks Chaz Araujo DO [Primary Care Provider] - 1-2 Days Nader Patel DO [Doctor of Osteopathic Medicine] - 1 Week Shun Simmons DO [STAFF PHYSICIAN] - 1-2 days Ambulatory/Diagnostic Orders: Basic Metabolic Panel [LAB.AMB] Time Frame: 3 Days, Location: None Selected Complete Blood Count w/diff [LAB.AMB] Time Frame: 3 Days, Location: None Selected Patient Instructions/Handouts: Heart Failure (DC), COPD (Chronic Obstructive Pulmonary Disease) (DC) Activity/Diet/Wound Care/Special Instructions: Return to [facility] Follow up with Dr Esquivel for a sleep study. Discharge Disposition: TRANSFER TO SNF/ECF
[2023-08-24 10:47] VITALS: BP 131/79; RESP 18; TEMP 99.4
[2023-08-24 11:44] VITALS: PULSE 80
[2023-08-24 11:45] LABS: Glucose,Whole Blood 139 mg/dL (70-110)
--- NOTE | 2023-08-24 20:13 | PN ---
PROGRESS NOTE DATE OF SERVICE: 08/24/2023 This is a Pulmonary/Critical Care Progress Note. SUBJECTIVE: This is a 63-year-old female, who is seen today in room 367. Currently, she is on 2 L of oxygen. She has a BiPAP device next to her, but it is unclear whether or not she used it or not. BiPAP settings were 16/6 and 35%. The plan I think is to discharge the patient to [facility] today. Initially, the patient was apparently refusing to use her oxygen. Apparently, the nurse practitioner rounding with the hospitalist convinced her to use it. Current laboratory data today include a glucose of 139. Microbiologic studies are currently negative. There was no chest x-ray today. PHYSICAL EXAMINATION: CURRENT VITAL SIGNS: Include temperature 99.4, heart rate 80, respiratory rate 18, blood pressure 131/79, and 2 L saturation of 100%. GENERAL: She appears in no acute distress. HEENT: Grossly unremarkable. NECK: Supple. Full range of motion. No adenopathy or thyromegaly. Neck veins are flat. CARDIOVASCULAR: Reveals regular rhythm and rate. S1 and S2 are normal. Heart rate 88 beats per minute. LUNGS: Reveal clear, but diminished breath sounds. No wheezes, rhonchi, or crackles. Breath sounds equal. Saturations are adequate on 2 L. ABDOMEN: Soft. Bowel sounds are noted. EXTREMITIES: Intact. Minimal edema. No cyanosis or clubbing. SKIN: Without rash. NEUROLOGIC: Brief, but nonfocal. ASSESSMENT: 1. Acute hypoxemic and hypercapnic respiratory failure, resolved, with medications and BiPAP. 2. Acute exacerbation of diastolic congestive heart failure. 3. Acute chronic obstructive pulmonary disease exacerbation. 4. Frequent falls. 5. Acute metabolic encephalopathy, secondary to hypercapnia, resolved. 6. Ongoing tobacco use and nicotine dependence. 7. Benign essential hypertension. 8. Type 2 diabetes mellitus. PLAN: Dated August 24, 2023, the patient appears to be doing much better. Again, it is not clear to me how much she used the BiPAP last night. Currently, she is on 2 L. Her saturations are adequate. Labs, x-rays, and medications are reviewed. The plan is for the patient to be discharged to [facility] later today. MMODL / IJN: [id number] /
== END 2023-08-24 13:07 | DRG 291 ==
LOC: EC 23:29 → 3SCARD 08-17 02:01
PROVIDERS: ADMIT Hospitalist; ATTEND Hospitalist
PROC: 5A09357 Assistance with Respiratory Ventilation, Less than 24 Consecutive Hours, Continuous Positive Airway Pressure (ICD-10-PCS; principal; 2023-08-17)
DX: I11.0 Hypertensive heart disease with heart failure (principal); G93.41 Metabolic encephalopathy; I50.33 Acute on chronic diastolic (congestive) heart failure; J96.21 Acute and chronic respiratory failure with hypoxia; J96.22 Acute and chronic respiratory failure with hypercapnia; J44.1 Chronic obstructive pulmonary disease with (acute) exacerbation; E11.65 Type 2 diabetes mellitus with hyperglycemia; I50.82 Biventricular heart failure; Z79.4 Long term (current) use of insulin; I07.1 Rheumatic tricuspid insufficiency; T38.0X5A Adverse effect of glucocorticoids and synthetic analogues, initial encounter; F41.9 Anxiety disorder, unspecified; M41.9 Scoliosis, unspecified; R29.6 Repeated falls; M19.90 Unspecified osteoarthritis, unspecified site; E78.5 Hyperlipidemia, unspecified; G89.29 Other chronic pain; M54.50 Low back pain, unspecified; H40.9 Unspecified glaucoma; K21.9 Gastro-esophageal reflux disease without esophagitis; M10.9 Gout, unspecified; M25.552 Pain in left hip; F17.200 Nicotine dependence, unspecified, uncomplicated; E66.9 Obesity, unspecified; Z68.32 Body mass index [BMI] 32.0-32.9, adult; Z99.81 Dependence on supplemental oxygen; Z79.51 Long term (current) use of inhaled steroids; Z79.84 Long term (current) use of oral hypoglycemic drugs; Z79.899 Other long term (current) drug therapy; Z91.81 History of falling; Z71.3 Dietary counseling and surveillance; Z88.5 Allergy status to narcotic agent
CPT/HCPCS: 36415; 36600; 71045; 80048; 80053; 82140; 82803; 82805; 83036; 83605; 83735; 83880; 84145; 84484; 85025; 85027; 85610; 85730; 86140; 87040; 87449; 93005; 94640; 94660; 94760; 96365; 96366; 96367; 96375; 96376; 99291